=== PATIENT | female | born 1970 | race Caucasian/White ===

== ENCOUNTER 2023-01-08 07:14 | Day surgery (SDC) | payer OTHER, SELFPAY ==
[2023-01-08 07:32] LABS: Glucometer 138 mg/dL (74-106)
[2023-01-08 07:56] VITALS: BP 132/76; PULSE 98; RESP 20; TEMP 36.4; O2SAT 97
--- NOTE | 2023-01-08 08:15 | W.PM.PROCNOT ---
Date of procedure: 01/08/23 Pre-op diagnosis: sacroiliac joint pain, left Procedure: Left sacroiliac joint injection PREOP/POSTOP DIAGNOSIS: sacroiliac joint pain, left SOLUTION USED: Marcaine 0.25% plus Kenalog 40 mg, total of 5 mL. COMPLICATIONS: None. ANESTHESIA: Local. PROCEDURE: After informed consent was obtained, the patient brought to the OR and placed in the prone position. The skin overlying the area was prepped and draped in sterile fashion using alcohol, after which a 25 gauge needle was used to access the indicated middle cluneal nerve under fluoroscopic guidance. Omnipaque contrast dye was injected to show absence of vascular or spinal canal uptake. After encountering the same we instilled 4 mL of solution. Postoperatively, needles were removed. The patient tolerated the procedure well and was transferred to recovery area in stable condition, to be discharged home after meeting criteria. Follow up as per the treatment plan. Surgeon: Yamile Lopez
[2023-01-08] MEDS: BUPIVACAINE HCL 0.25% PF 25 MG/10 ML VIAL INJ (08:26)
[2023-01-08] MEDS: IOHEXOL 240 MG/ML - 10 ML VIAL INJ (08:27)
[2023-01-08] MEDS: LIDOCAINE HCL 2% PF 100 MG/5 ML VIAL INJ (08:27)
[2023-01-08] MEDS: TRIAMCINOLONE ACETONIDE 40 MG/ML VIAL INJ (08:28)
[2023-01-08 10:42] VITALS: BP 141/63; BP 156/74; PULSE 73; PULSE 84; RESP 18; O2SAT 93; O2SAT 95
== END 2023-01-08 08:30 | disposition home or self-care (01) ==
PROVIDERS: PCP Family Medicine; Visit Provider Anesthesiology
DX: M53.3 Sacrococcygeal disorders, not elsewhere classified (principal)
CPT/HCPCS: 27096; 36415; 82948; Q9966

== ENCOUNTER 2023-01-11 16:52 | Inpatient (IN) | payer OTHER, SELFPAY ==
[2023-01-11] VITALS (23 sets, daily range): BP systolic 138–194; BP diastolic 78–92; PULSE 79–104; RESP 15–26; TEMP 36.7–37.1; O2SAT 88–96; BMI 38.5; BMI 38.3
--- NOTE | 2023-01-11 17:08 | ED.RECABL1 ---
HPI - Recheck/Abnormal Lab/Rx General Chief Complaint: Recheck/Abnormal Lab/Rx Stated Complaint: ABNORMAL LABS Time Seen by Provider: 01/11/23 17:08 Source: patient Mode of arrival: walk-in Limitations: no limitations History of Present Illness HPI narrative: pt presents emergency department complaining of high white blood count. She states she had blood work done yesterday at [facility] and her white count was 19 so she was told by the nurse practitioner to come and be evaluated. Patient is a smoker and she has a history of chronic obstructive pulmonary disease. She had pneumonia for the last month. She states she is on her last pill of Levaquin and this is her 3rd antibiotic that she's had this month. She is also on tapering dose of prednisone, Down to 30 mg daily. nebulized albuterol treatments at home. She states in spite of having all of these antibiotics and steroids she is still feeling short of breath. They ordered a CT scanning of her chest as an outpatient but they have been. Patient states she still feeling short of breath. She denies any fevers states that she's had chills. She denies any lower extremity edema, or cramping. Patient denies any nausea, vomiting, diarrhea, constipation, or abdominal pain. She denies any flank pain, hematuria, dysuria. She denies any chest pain, palpitations. Patient is a smoker. Related Data Home Medications Medication Instructions Recorded Confirmed 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 QDAY 01/03/23 amlodipine 10 mg tablet 10 mg PO DAILY 01/03/23 01/08/23 aspirin 81 mg capsule 81 mg PO DAILY 01/03/23 01/08/23 cyclobenzaprine 10 mg tablet 10 mg PO QAM 01/03/23 01/08/23 diclofenac 50 mg tablet 100 ea QDAY 01/03/23 del.rel-capsai 0.025%-m-salic 25%-ment 6% liqd duloxetine 60 mg capsule,delayed 90 mg PO DAILY 01/03/23 01/08/23 release (Cymbalta) loratadine 10 mg tablet 10 mg PO DAILY 01/03/23 01/08/23 (Allerclear) magnesium glycinate 400 mg PO QDAY 01/03/23 01/08/23 olanzapine 5 mg tablet 5 mg PO .HS 01/03/23 01/08/23 omega 8-vgb-mcl-fish oil 1,000 mg 1 cap PO DAILY 01/03/23 01/08/23 (120 mg-180 mg) capsule (Fish Oil) omeprazole 20 mg capsule,delayed 20 mg PO DAILY 01/03/23 01/08/23 release potassium 20 mg chewable tablet mg PO QDAY 01/03/23 tramadol 50 mg tablet 50 mg PO DAILY PRN pain 01/03/23 01/08/23 Allergies Allergy/AdvReac Type Severity Reaction Status Date / Time hydromorphone [From Dilaudid] Allergy Mild Verified 01/11/23 17:12 Review of Systems ROS Status of ROS 10 or more systems reviewed and unremarkable except as noted in history and below [facility] Medical History (Updated 01/11/23 @ 21:04 by Jessy Butt MD) Surgical History (Updated 01/03/23 @ 17:01 by Alisson Rosario) Exam Narrative Exam Narrative: Nurses notes and vital signs reviewed and patient is not hypoxic.92% on ra General: Nontoxic,ill appearing and in no apparent distress. Skin: Warm, dry, no pallor noted. No Rash Head: Normocephalic, atraumatic. Neck: Supple, non-tender. Eye: Pupils are equal, round and EOMI. No scleral icterus. Ears, Nose, Mouth, and Throat: TM clear, no posterior oropharynx erythema or nasal mucosal hypertrophy, uvula is mid-line Oral mucosa is moist Cardiovascular: Regular Rate and Rhythm without murmur, gallop or rub. Respiratory: tachypneic and labored breathing no respiratory distress.Bilateral diffuse expiratory rhonchi, and wheezes to all lung perdomo. No intercostal retractions noted. Chest Wall: no tenderness Back: No midline thoracic or lumbar vertebral tenderness. No CVA tenderness Musculoskeletal: normal ROM, no calf or popliteal tenderness, no lower extremity edema/swelling GI: Abdomen is soft, non-distended. Normal bowel sounds. No masses appreciated. No tenderness to palpation. No rebound, guarding, or rigidity noted. Neurological: A&O x4. No cranial nerve dysfunction observed. No truncal ataxia. Moves all extremities. Sensation intact. Psychiatric: Cooperative and interactive. Normal mood and affect. Constitutional Vital Signs - 24 hr 01/11/23 17:00 01/11/23 17:10 01/11/23 17:02 Temperature 98.7 F Pulse Rate 95 H Pulse Rate [Monitor] 104 H Respiratory Rate 22 15 Blood Pressure 194/91 H Blood Pressure [Right Arm] 194/91 H Pulse Oximetry 93 L 94 L 92 L Oxygen Delivery Method Room Air Room Air 01/11/23 17:12 01/11/23 19:14 01/11/23 19:20 Temperature Pulse Rate 86 88 84 Pulse Rate [Monitor] Respiratory Rate 24 15 21 Blood Pressure 160/92 H Blood Pressure [Right Arm] Pulse Oximetry 91 L 91 L 92 L Oxygen Delivery Method 01/11/23 19:30 01/11/23 19:40 Temperature Pulse Rate 79 87 Pulse Rate [Monitor] Respiratory Rate 23 26 H Blood Pressure Blood Pressure [Right Arm] Pulse Oximetry 91 L 93 L Oxygen Delivery Method Course Vital Signs Vital signs: Vital Signs Temperature 98.7 F 01/11/23 17:00 Pulse Rate 104 H 01/11/23 17:00 Respiratory Rate 22 01/11/23 17:00 Blood Pressure 194/91 H 01/11/23 17:00 Pulse Oximetry 93 L 01/11/23 17:00 Oxygen Delivery Method Room Air 01/11/23 17:00 Temperature 98.7 F 01/11/23 17:00 Pulse Rate 87 01/11/23 19:40 Respiratory Rate 26 H 01/11/23 19:40 Blood Pressure 160/92 H 01/11/23 17:12 Pulse Oximetry 93 L 01/11/23 19:40 Oxygen Delivery Method Room Air 01/11/23 17:10 MDM - Recheck/Abnormal Lab/Rx MDM Narrative Medical decision making narrative: Patient has been treated for month for chronic obstructive pulmonary disease, pneumonia with 3 different antibiotics, nebulized treatments and steroids. She has not had any improvement. At this point we will not do a CTA of the chest. The CTA shows groundglass opacities and no pulmonary embolism. The patient was tested for Covid-19. Patient received 1 breathing treatment of 21 AB, 2 albuterol treatments, and magnesium, steroids, and fortaz IV. She still not feeling better. Lungs still have diffuse rhonchi throughout. The patient still tachypneic. The patient has failed outpatient treatment. This was discussed with the hospitalist who will admit the patient. I also discussed the patient smokes sensation Medical Records Attestation: I reviewed the patient's medical records. Lab Data Attestation: I reviewed the patient's lab results. Labs: Lab Results 01/11/23 Range/Units 17:10 WBC 20.0 H (4.0-11.0) 10^3/uL RBC 4.93 (4.20-5.40) 10^6/uL Hgb 15.4 (12.0-16.0) g/dL Hct 47.0 (36.0-48.0) % MCV 95.3 (81.0-99.0) fL MCH 31.2 (26.7-34.0) pg MCHC 32.8 (29.9-35.2) g/dL RDW 15.9 H (11.0-15.0) % Plt Count 398 (150-450) 10^3/uL MPV 8.9 L (9.5-13.5) fL Seg Neuts % (Manual) 80.0 Band Neutrophils % 4.0 (0-5) % Lymphocytes % (Manual) 11.0 L (20.5-60.0) % Monocytes % (Manual) 5.0 (1.7-12.0) % Eosinophils % (Manual) 0.0 L (0.9-7.0) % Basophils % (Manual) 0.0 L (0.2-2.0) % Neutrophils # (Manual) 16.00 H (1.4-6.5) 10^3/uL Band Neutrophils # 0.8 H (0.0-0.3) 10^3/uL Lymphocytes # (Manual) 2.20 (1.20-3.80) 10^3/uL Monocytes # (Manual) 1.00 H (0.30-0.80) 10^3/uL Eosinophils # (Manual) 0.00 (0.00-0.70) 10^3/uL Basophils # (Manual) 0.00 (0.00-0.10) 10^3/uL Anisocytosis 1+ Sodium 137 (136-145) mmol/L Potassium 4.2 (3.5-5.1) mmol/L Chloride 102 (98-107) mmol/L Carbon Dioxide 24.3 (21.0-32.0) mmol/L Anion Gap 14.9 BUN 15.0 (7.0-18.0) mg/dL Creatinine 1.29 H (0.55-1.02) mg/dL Est GFR ( Amer) 52 L (>=60) Est GFR (Non-Af Amer) 43 L (>=60) BUN/Creatinine Ratio 11.6 Glucose 189 H (74-106) mg/dL Calcium 9.1 (8.5-10.1) mg/dL Total Bilirubin 1.0 (0.2-1.0) mg/dL AST 11 L (15-37) U/L ALT 27 (14-59) U/L Alkaline Phosphatase 83 (46-116) U/L Troponin I High Sens 5.7 (4.0-51.3) pg/mL Total Protein 7.3 (6.4-8.2) g/dL Albumin 3.6 (3.4-5.0) g/dL Globulin 3.7 g/dL Albumin/Globulin Ratio 1.0 ECG Data Attestation: I personally reviewed and interpreted this ECG as follows: Discharge Plan Discharge Chief Complaint: Recheck/Abnormal Lab/Rx Clinical Impression: Failure of outpatient treatment, Continuous tobacco abuse, Acute exacerbation of chronic obstructive pulmonary disease Patient Disposition: Admitted as Observation Time of Disposition Decision: 20:37 Condition: Good
--- NOTE | 2023-01-11 17:19 | ECG_ITS ---
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
[2023-01-11] MEDS: IPRATROPIUM/ALBUTEROL SULFATE 3 ML AMPUL.NEB IH (17:48)
[2023-01-11] MEDS: 0.9 % SODIUM CHLORIDE 1,000 ML 999 ML IV (17:51)
[2023-01-11] MEDS: METHYLPREDNISOLONE SOD SUCC PF 125 MG/2 ML VIAL IVP (17:51)
[2023-01-11 18:02] LABS: Hemoglobin 15.4 g/dL (12.0-16.0); Mean Corpuscular HGB Conc 32.8 g/dL (29.9-35.2); Mean Corpuscular Hemoglobin 31.2 pg (26.7-34.0); Mean Corpuscular Volume 95.3 fL (81.0-99.0); Mean Platelet Volume 8.9 fL (9.5-13.5); Platelet Count 398 10^3/uL (150-450); Red Blood Count 4.93 10^6/uL (4.20-5.40); Red Cell Distribution Width 15.9 % (11.0-15.0)
[2023-01-11 18:10] LABS: Anisocytosis 1+; Band Neutrophils Absolute 0.8 10^3/uL (0.0-0.3)
[2023-01-11 18:22] LABS: Alanine Aminotransferase 27 U/L (14-59); Albumin Level 3.6 g/dL (3.4-5.0); Alkaline Phosphatase 83 U/L (46-116); Anion Gap 14.9; Aspartate Amino Transferase 11 U/L (15-37); BUN Creatinine Ratio 11.6; Calcium 9.1 mg/dL (8.5-10.1); Carbon Dioxide 24.3 mmol/L (21.0-32.0); Chloride 102 mmol/L (98-107); Estimated GFR (African America 52 (>=60); Estimated GFR (Non-African Ame 43 (>=60); Globulin 3.7 g/dL; Glucose 189 mg/dL (74-106); Potassium 4.2 mmol/L (3.5-5.1); Sodium 137 mmol/L (136-145); Total Protein 7.3 g/dL (6.4-8.2); Troponin I High Sensitivity 5.7 pg/mL (4.0-51.3)
--- NOTE | 2023-01-11 18:31 | CT_ITS ---
[address] [address] Patient Name: DHARA BETTENCOURT MRN: [id number] date: 1970 Sex: F Assigned Patient Location: ER Current Patient Location: ER Accession/Order Number: [id number] Exam Date: 01/11/2023 18:40 Report Date: 01/11/2023 20:06 At the request of: LISS DHALIWAL Procedure: CT angio chest EXAMINATION: CT angio chest HISTORY: dyspnea COMPARISON: Plain x-ray 12/27/2022 TECHNIQUE: Multi-planar CT images were created with IV contrast. Axial, Coronal, and Sagittal images. Dose reduction techniques were achieved by using automated exposure control and/or adjustment of mA and/or kV according to patient size and/or use of iterative reconstruction technique. FINDINGS: LUNGS: Mild scattered linear and groundglass opacities with a medial right upper lobe and bibasilar distribution. PLEURA: No mass, effusion, or pneumothorax. VASCULATURE: Normal opacification of the central pulmonary arterial tree with no filling defects FUNMI: No mass or adenopathy. MEDIASTINUM: No mass or adenopathy. CARDIAC: No enlargement. Small amount of pericardial fluid felt to be within normal limits AORTA: No aneurysm or dissection. CHEST WALL: No mass or axillary adenopathy. BONES: No bone lesion or fracture. LIMITED ABDOMEN: Diffuse hypoattenuation of the liver, consider hepatic steatosis echogenicity partially visualized along the medial posterior left kidney measuring 24 Hounsfield units, indeterminate OTHER: Negative. IMPRESSION: No central pulmonary thromboembolic disease Electronically authenticated by: MELYSSA PITTS Date: 01/11/2023 20:06
[2023-01-11] MEDS: MAGNESIUM SULFATE IN WATER 50 ML IV (18:32)
[2023-01-11] MEDS: CEFTAZIDIME 1,000 MG in 0.9 % SODIUM CHLORIDE 50 ML 100 MG IV (18:33)
[2023-01-11] MEDS: ALBUTEROL SULFATE 2.5 MG/3 ML VIAL NEB IH (21:09)
[2023-01-11 21:12] LABS: SARS-CoV-2 Ag NEGATIVE (NEGATIVE)
[2023-01-11 22:52] LABS: Glucometer 174 mg/dL (74-106)
[2023-01-11] MEDS: METHYLPREDNISOLONE SOD SUCC PF 40 MG/ML VIAL IVP (23:23)
[2023-01-11] MEDS: NICOTINE 21 MG PATCH.TD24 TD (23:25)
[2023-01-11] MEDS: 0.9 % SODIUM CHLORIDE 1,000 ML 75 ML IV (23:26)
[2023-01-12] VITALS (11 sets, daily range): BP systolic 134–138; BP diastolic 68–84; PULSE 78–103; RESP 2–20; TEMP 36.6–37; O2SAT 88–96; BMI 38.3
--- NOTE | 2023-01-12 02:03 | P.PN_ITS ---
Progress Note: Subjective Subjective Interval history: Pt is 52F with h/o COPD not on any home O2, dm, tobacco abuse, anad left renal cyst currnetly undergoing w/u presents with c/o ongoign dyspnea and wheezing. Pt reports initially being dx with PNA in November. She reports sob, cough assoc with productive sputum tht hs been anywhre from yellow to green and brown which has bee nongoing sicen then. Reports goign to [facility] last month and RX Augmentin. she followed up with her PCP for the lingering cough when she was about senior living thru the augmentin tx and was switched to Zpack along with a prologned steroid taper. She was starting to feel bettr but sx exacerbated. She was able to complete Zpack and remains on prednisone taper currently. She initialyl felt better but sx worsened with cough, sob, and wheezing therefore PCP placed her on levaquin 10day courseand she has complted 9 days thus far. prednisone taper cont with 3 more days until complete yet not feeling any better so came to ED as referreed by her PCP d/t labs done couple days ago showing wbc 19k. PCP felt that this elev wbc was not just d/t steroids,..She did have a low grade fever 99.4 at last PCP appt but denies at present. In ED,Vitald 160/92 and 88%ra, improved with 2 L. No home o2 prev. COVID negative.wbc 20k, cr 1.29,gluc 189. ekg nsr. cta chest neg for pe, noted GGO in rul and bll. treated with nebs, Fortaz, mg, soluemdrol 125mg, and ivf. Exam Constitutional Vital Signs - 24 hr 01/11/23 17:00 01/11/23 17:10 01/11/23 17:02 Temperature 98.7 F Pulse Rate 95 H Pulse Rate [Monitor] 104 H Respiratory Rate 22 15 Blood Pressure 194/91 H Blood Pressure [Right Arm] 194/91 H Pulse Oximetry 93 L 94 L 92 L Oxygen Delivery Method Room Air Room Air 01/11/23 17:12 01/11/23 19:14 01/11/23 19:20 Temperature Pulse Rate 86 88 84 Pulse Rate [Monitor] Respiratory Rate 24 15 21 Blood Pressure 160/92 H Blood Pressure [Right Arm] Pulse Oximetry 91 L 91 L 92 L Oxygen Delivery Method 01/11/23 19:30 01/11/23 19:40 01/11/23 21:09 Temperature Pulse Rate 79 87 102 H Pulse Rate [Monitor] Respiratory Rate 23 26 H 22 Blood Pressure Blood Pressure [Right Arm] Pulse Oximetry 91 L 93 L 93 L Oxygen Delivery Method 01/11/23 19:50 01/11/23 20:00 01/11/23 20:10 Temperature Pulse Rate 79 84 84 Pulse Rate [Monitor] Respiratory Rate 21 20 19 Blood Pressure Blood Pressure [Right Arm] Pulse Oximetry 93 L 91 L 90 L Oxygen Delivery Method 01/11/23 20:20 01/11/23 20:30 01/11/23 20:40 Temperature Pulse Rate 81 88 85 Pulse Rate [Monitor] Respiratory Rate 19 22 15 Blood Pressure Blood Pressure [Right Arm] Pulse Oximetry 92 L 91 L 91 L Oxygen Delivery Method 01/11/23 21:06 01/11/23 21:10 01/11/23 21:15 Temperature Pulse Rate 86 81 86 Pulse Rate [Monitor] Respiratory Rate 17 15 20 Blood Pressure Blood Pressure [Right Arm] Pulse Oximetry 96 Oxygen Delivery Method 01/11/23 21:50 01/11/23 22:16 01/11/23 22:16 Temperature 98.2 F Pulse Rate 88 Pulse Rate [Monitor] 89 88 Respiratory Rate 18 20 Blood Pressure Blood Pressure [Right Arm] 138/80 H 138/78 H Pulse Oximetry 93 L 95 95 Oxygen Delivery Method Room Air Room Air Room Air 01/11/23 22:53 01/12/23 00:06 01/11/23 23:38 Temperature 98.0 F Pulse Rate 88 Pulse Rate [Monitor] Respiratory Rate 22 Blood Pressure Blood Pressure [Right Arm] Pulse Oximetry 91 L 88 L 88 L Oxygen Delivery Method Room Air Room Air Room Air Common normals: no apparent distress, oriented x3, no limitations and alert HENMT Common normals: normocephalic Head and scalp: atraumatic Neck & C-Spine Common normals: full ROM and supple Respiratory Effort & inspection: able to speak in complete sentences Other: diffuse exp wheezes b/l, bibasilar rhonchi, decr b/l air entry Cardio Rate: regular rate Rhythm: regular rhythm Heart sounds: S1 normal and S2 normal GI Common normals: Normal to inspection, nondistended, normoactive bowel sounds present, soft to palpation and non-tender Extremity Common normals: normal to inspection and full ROM Psych Common normals: mental status grossly normal Appearance: grossly normal Attitude: calm Activity/motor behavior: appropriate eye contact Speech: normal speech Progress Note: Objective Labs Labs: Short CBC 01/11/23 Range/Units 17:10 WBC 20.0 H (4.0-11.0) 10^3/uL Hgb 15.4 (12.0-16.0) g/dL Hct 47.0 (36.0-48.0) % Plt Count 398 (150-450) 10^3/uL BMP 01/11/23 17:10 Sodium 137 Potassium 4.2 Chloride 102 Carbon Dioxide 24.3 BUN 15.0 Creatinine 1.29 H Glucose 189 H Calcium 9.1 Liver Function 01/11/23 Range/Units 17:10 Total Bilirubin 1.0 (0.2-1.0) mg/dL AST 11 L (15-37) U/L ALT 27 (14-59) U/L Alkaline Phosphatase 83 (46-116) U/L Albumin 3.6 (3.4-5.0) g/dL Progress Note: A&P Assessment and Plan (1) Acute exacerbation of chronic obstructive pulmonary disease: (2) Continuous tobacco abuse: (3) Failure of outpatient treatment: (4) Anxiety: (5) Asthma: (6) Depression: (7) Hypertension: Plan AE-COPD PNA,CAP. failed outpt tx with 3 rounds po abx Acute on Chronci hypoxic resp failure Persistent Leukocytosis, noted in settign of prolonged steroid use but need to r/o alternative etiolgies Mild KINDRA DM HTN Tobacco Abuse L Kidney cyst, curently undergoing o/pt workup with upcoming imagin schd per pt Plan: -solumedrol iv duonebs schd and prn start Zosyn. failed o/pt abx with augmentin, zpack, and levaquin chk Sputum cx, urine antigens wean O2 as peter. denies home O2 use. may need on dc repeat cbc in am. monitor for fever gentle ivf x 1 L monitor Cr ssi, hold home metformin,rebelsys chk a1c in am nicotine patch dvt p/x sq heparin full code Telemedicine Attestation Telemedicine Attestation I conducted this encounter from [] via secure live, [id number] video conference with the patient, CHARGE TEST-CHARGES located at [facility] with []. Prior to the interview, the risks and benefits of telemedicine were discussed with the patient and verbal consent was obtained.
[2023-01-12] MEDS: PIPERACILLIN SODIUM/TAZOBACTAM 3.375 GM in 0.9 % SODIUM CHLORIDE 50 ML IV ×3 (04:34→18:19)
[2023-01-12 05:42] LABS: Hematocrit 39.9 % (36.0-48.0); Hemoglobin 13.4 g/dL (12.0-16.0); Mean Corpuscular HGB Conc 33.6 g/dL (29.9-35.2); Mean Corpuscular Hemoglobin 31.5 pg (26.7-34.0); Mean Corpuscular Volume 93.7 fL (81.0-99.0); Mean Platelet Volume 8.6 fL (9.5-13.5); Platelet Count 321 10^3/uL (150-450); Red Blood Count 4.26 10^6/uL (4.20-5.40)
[2023-01-12 05:55] LABS: Estimated Average Glucose 128 mg/dL; Glycohemoglobin A1C 6.1 % (4.5-6.2)
[2023-01-12 05:58] LABS: Anion Gap 14.8; BUN Creatinine Ratio 15.7; Calcium 9.1 mg/dL (8.5-10.1); Carbon Dioxide 24.4 mmol/L (21.0-32.0); Chloride 102 mmol/L (98-107); Estimated GFR (African America 56 (>=60); Estimated GFR (Non-African Ame 47 (>=60); Glucose 230 mg/dL (74-106); Potassium 4.2 mmol/L (3.5-5.1); Sodium 137 mmol/L (136-145)
[2023-01-12] MEDS: IPRATROPIUM/ALBUTEROL SULFATE 3 ML AMPUL.NEB IH ×5 (06:13→22:48)
[2023-01-12] MEDS: HEPARIN SODIUM (PORCINE) 5,000 UNIT/ML VIAL 5000 UNIT SUBQ ×3 (06:31→21:41)
[2023-01-12] MEDS: METHYLPREDNISOLONE SOD SUCC PF 40 MG/ML VIAL IVP ×3 (06:53→18:20)
--- NOTE | 2023-01-12 07:37 | US_ITS ---
The [address] [address] Patient Name: DHARA BETTENCOURT MRN: [id number] date: 1970 Sex: F Assigned Patient Location: MS Current Patient Location: MS Accession/Order Number: [id number] Exam Date: 01/12/2023 10:35 Report Date: 01/12/2023 12:55 At the request of: SHAIKH MIGUELANGEL Procedure: US renal bladder US renal bladder EXAM DATE: 01/12/2023 8:35 AM MDT COMPARISON: MRI lumbar spine 12/05/2022. INDICATION: Renal cysts. TECHNIQUE: Real-time ultrasound scanning of the kidneys and bladder was performed by the supervisor offset plate preparation. [place] static images are submitted for review. FINDINGS: Right Kidney: The right kidney measures 12.7 x 5.2 x 4.5 cm and has a volume of 154 mL. Normal echogenicity. No hydronephrosis. No shadowing calculi. Multiple renal cysts are noted. Renal cysts measure 0.8 x 1 x 1.1 cm and 3.4 x 3.6 x 3.8 cm respectively. No obvious solid renal mass. Renal cortex measures 1.3 cm. Left Kidney: The left kidney measures 11.5 x 5.2 x 5.4 cm and has a volume of 170 mL. Normal echogenicity. No hydronephrosis. No shadowing calculi. Multiple renal cysts are identified. Superior pole renal cysts measure 3.3 x 3.5 x 3.2 cm and 2.4 x 2.3 x 1.9 cm. Although no obvious solid renal mass is identified sonographically, no definitive correlate for previously MRI visualized 1.6 cm posterior complex cyst versus mass is identified. Renal cortex measures 1.4 cm. Bladder: Bladder volume measures 574 mL. No post void residual is identified. No focal or diffuse bladder wall thickening noted. Bilateral ureteral jets are visualized. Visualized hepatic parenchyma is echogenic to adjacent renal cortex. IMPRESSION: 1. Bilateral renal cysts are noted. However, the 1.6 cm complex cyst versus mass visualized on comparison MRI is not confidently identified sonographically. A dedicated contrast-enhanced renal CT or MRI is recommended to definitively characterize this lesion. 2. No hydronephrosis. Bilateral ureteral jets are visualized. 3. Fatty infiltration of the liver. Electronically authenticated by: MEREDITH HYDE Date: 01/12/2023 12:55
[2023-01-12 07:44] LABS: Glucometer 217 mg/dL (74-106)
[2023-01-12] MEDS: CETIRIZINE HCL 10 MG TABLET PO (08:41)
[2023-01-12] MEDS: OLANZapine 5 MG TABLET PO ×2 (08:41→21:41)
[2023-01-12] MEDS: AMLODIPINE BESYLATE 5 MG TABLET 10 MG PO (08:42)
[2023-01-12] MEDS: ASPIRIN 81 MG TABLET.DR PO (08:42)
[2023-01-12] MEDS: OMEPRAZOLE 20 MG CAPSULE.DR PO (08:42)
[2023-01-12] MEDS: DULOXETINE HCL 30 MG CAPSULE.DR 90 MG PO (10:25)
[2023-01-12] MEDS: POTASSIUM CHLORIDE 10 MEQ ER TABLET PO (10:25)
[2023-01-12] MEDS: INSULIN ASPART 300 UNIT/3 ML PEN SUBQ ×3 (11:35→21:44)
[2023-01-12 11:36] LABS: Glucometer 232 mg/dL (74-106)
--- NOTE | 2023-01-12 11:36 | RESP.RT ---
placed pt on Room air
--- NOTE | 2023-01-12 12:02 | XR_ITS ---
The [address] [address] Patient Name: DHARA BETTENCOURT MRN: [id number] date: 1970 Sex: F Assigned Patient Location: MS Current Patient Location: MS Accession/Order Number: [id number] Exam Date: 01/12/2023 12:15 Report Date: 01/12/2023 13:41 At the request of: SHAIKH MIGUELANGEL Procedure: XR chest 2V EXAM: XR chest 2V HISTORY: SOB COMPARISON: 12/27/2022 TECHNIQUE: Upright PA and lateral chest x-ray FINDINGS: The heart is not enlarged and the vasculature is not distended. There is been interval clearing at the lung bases. No acute infiltrate, effusion or pneumothorax is identified. The osseous structures are grossly intact. IMPRESSION: No acute infiltrate or evidence of cardiac decompensation. Interval clearing of the lung bases. Electronically authenticated by: VENKATESH CALVILLO Date: 01/12/2023 13:41
--- NOTE | 2023-01-12 12:29 | P.HP_ITS ---
H&P: HPI History of Present Illness Chief complaint: Shortness of breath Narrative: 52 y o female presents with one month hx of feeling short of breath, with associated wheezing and productive cough. She has had fevers too initially but not for past couple of weeks now. She was treated as outpatient by her PCP for COPD exacerbation and later on, when did not improve for PNA after she had an XR that showed possible PNA. She has been using oral steroids more or less for past one month for her resp symptoms. She has used thre different abx for her resp symptoms - Azithromycin, Augmentin and most recently Levaquin and today was going to be her last dose. She has not noticed any sig improvement in her resp symptoms. Patient was sent to ED for elevated white count by her PCP. On presentation, she was hpyoxic with pulse Ox down to 88% at rest with SOB on exertion. She never had formal PFTs for COPD but has been told that she has COPD. She is not on any maintenance inhalers for COPD and uses albuterol as needed. Continues to smoke 1 PPD but since she got sick - she has cut down her smoking somewhat. She reports chronic CROOK and as a result of that has modified her lifestyle but has not been worked up for underlying CAD/CHF and once again never had PFTs. She is feeling better today but still hypoxic and experiencing exertional SOB. Review of Systems ROS Status of ROS 10 or more systems reviewed and unremarkable except as noted in history and below [facility] Medical History (Updated 01/12/23 @ 12:47 by Shaikh Alexandra MD) Surgical History (Updated 01/03/23 @ 17:01 by Alisson Rosario) Social History Gender Identity: female Meds Home Medications and Allergies Home Medications Medication Instructions Recorded Confirmed Type 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 1 tab PO QDAY 01/03/23 01/12/23 History amlodipine 10 mg tablet 10 mg PO DAILY 01/03/23 01/12/23 History aspirin 81 mg capsule 81 mg PO DAILY 01/03/23 01/12/23 History cyclobenzaprine 10 mg tablet 5 mg PO QPM 01/03/23 01/12/23 History diclofenac 50 mg tablet 100 ea topical QDAY 01/03/23 01/12/23 History del.rel-capsai 0.025%-m-salic 25%-ment 6% liqd duloxetine 60 mg capsule,delayed 90 mg PO DAILY 01/03/23 01/12/23 History release (Cymbalta) loratadine 10 mg tablet 10 mg PO DAILY 01/03/23 01/12/23 History (Allerclear) magnesium glycinate 400 mg PO QDAY 01/03/23 01/12/23 History olanzapine 5 mg tablet 7.5 mg PO QPM 01/03/23 01/12/23 History omega 2-fbf-pqh-fish oil 1,000 mg 1 cap PO DAILY 01/03/23 01/12/23 History (120 mg-180 mg) capsule (Fish Oil) omeprazole 20 mg capsule,delayed 20 mg PO DAILY 01/03/23 01/12/23 History release tramadol 50 mg tablet 50 mg PO DAILY PRN pain 01/03/23 01/12/23 History potassium chloride 10 mEq 10 meq PO DAILY 01/12/23 01/12/23 History tablet,extended release (K-Tab) Allergies Allergy/AdvReac Type Severity Reaction Status Date / Time hydromorphone [From Dilaudid] Allergy Mild Verified 01/11/23 17:12 Exam Constitutional Vital Signs - 24 hr 01/11/23 17:00 01/11/23 17:10 01/11/23 17:02 Temperature 98.7 F Pulse Rate 95 H Pulse Rate [Monitor] 104 H Respiratory Rate 22 15 Blood Pressure 194/91 H Blood Pressure [Right Arm] 194/91 H Pulse Oximetry 93 L 94 L 92 L Oxygen Delivery Method Room Air Room Air Oxygen Delivery Flow Rate Fraction of Inspired Oxygen 01/11/23 17:12 01/11/23 19:14 01/11/23 19:20 Temperature Pulse Rate 86 88 84 Pulse Rate [Monitor] Respiratory Rate 24 15 21 Blood Pressure 160/92 H Blood Pressure [Right Arm] Pulse Oximetry 91 L 91 L 92 L Oxygen Delivery Method Oxygen Delivery Flow Rate Fraction of Inspired Oxygen 01/11/23 19:30 01/11/23 19:40 01/11/23 21:09 Temperature Pulse Rate 79 87 102 H Pulse Rate [Monitor] Respiratory Rate 23 26 H 22 Blood Pressure Blood Pressure [Right Arm] Pulse Oximetry 91 L 93 L 93 L Oxygen Delivery Method Oxygen Delivery Flow Rate Fraction of Inspired Oxygen 01/11/23 19:50 01/11/23 20:00 01/11/23 20:10 Temperature Pulse Rate 79 84 84 Pulse Rate [Monitor] Respiratory Rate 21 20 19 Blood Pressure Blood Pressure [Right Arm] Pulse Oximetry 93 L 91 L 90 L Oxygen Delivery Method Oxygen Delivery Flow Rate Fraction of Inspired Oxygen 01/11/23 20:20 01/11/23 20:30 01/11/23 20:40 Temperature Pulse Rate 81 88 85 Pulse Rate [Monitor] Respiratory Rate 19 22 15 Blood Pressure Blood Pressure [Right Arm] Pulse Oximetry 92 L 91 L 91 L Oxygen Delivery Method Oxygen Delivery Flow Rate Fraction of Inspired Oxygen 01/11/23 21:06 01/11/23 21:10 01/11/23 21:15 Temperature Pulse Rate 86 81 86 Pulse Rate [Monitor] Respiratory Rate 17 15 20 Blood Pressure Blood Pressure [Right Arm] Pulse Oximetry 96 Oxygen Delivery Method Oxygen Delivery Flow Rate Fraction of Inspired Oxygen 01/11/23 21:50 01/11/23 22:16 01/11/23 22:16 Temperature 98.2 F Pulse Rate 88 Pulse Rate [Monitor] 89 88 Respiratory Rate 18 20 Blood Pressure Blood Pressure [Right Arm] 138/80 H 138/78 H Pulse Oximetry 93 L 95 95 Oxygen Delivery Method Room Air Room Air Room Air Oxygen Delivery Flow Rate Fraction of Inspired Oxygen 01/11/23 22:53 01/12/23 00:06 01/11/23 23:38 Temperature 98.0 F Pulse Rate 88 Pulse Rate [Monitor] Respiratory Rate 22 Blood Pressure Blood Pressure [Right Arm] Pulse Oximetry 91 L 88 L 88 L Oxygen Delivery Method Room Air Room Air Room Air Oxygen Delivery Flow Rate Fraction of Inspired Oxygen 01/12/23 04:26 01/12/23 05:03 01/12/23 06:20 Temperature 97.8 F Pulse Rate 89 94 H Pulse Rate [Monitor] Respiratory Rate 16 20 Blood Pressure Blood Pressure [Right Arm] 136/80 H Pulse Oximetry 94 L 93 L Oxygen Delivery Method Nasal Cannula Nasal Cannula Oxygen Delivery Flow Rate 2 2 Fraction of Inspired Oxygen 01/12/23 08:00 01/12/23 11:34 Temperature Pulse Rate Pulse Rate [Monitor] Respiratory Rate 2 L Blood Pressure Blood Pressure [Right Arm] Pulse Oximetry Oxygen Delivery Method Room Air Oxygen Delivery Flow Rate Fraction of Inspired Oxygen 94 Documenting provider has reviewed patient's vital signs: yes Common normals: no apparent distress and oriented x3 General appearance: cooperative and comfortable HENIL Common normals: normocephalic and head/scalp atraumatic Respiratory Common normals: normal respiratory effort and no use of accessory muscles Effort & inspection: able to speak in complete sentences Auscultation: wheezes expiratory wheezes and scattered wheezes GI Common normals: Normal to inspection, nondistended, normoactive bowel sounds present, soft to palpation, non-tender and no hepatosplenomegaly Extremity Common normals: normal to inspection and full ROM Neuro Common normals: oriented x3, moves all extremities, no focal motor deficits and no sensory deficits noted Psych Common normals: mental status grossly normal, denies homicidal ideation and denies suicidal ideation Results Labs Labs: Short CBC 01/11/23 01/12/23 Range/Units 17:10 05:26 WBC 20.0 H 21.0 H (4.0-11.0) 10^3/uL Hgb 15.4 13.4 (12.0-16.0) g/dL Hct 47.0 39.9 (36.0-48.0) % Plt Count 398 321 (150-450) 10^3/uL BMP 01/11/23 01/12/23 17:10 05:26 Sodium 137 137 Potassium 4.2 4.2 Chloride 102 102 Carbon Dioxide 24.3 24.4 BUN 15.0 19.0 H Creatinine 1.29 H 1.21 H Glucose 189 H 230 H Calcium 9.1 9.1 Liver Function 01/11/23 Range/Units 17:10 Total Bilirubin 1.0 (0.2-1.0) mg/dL AST 11 L (15-37) U/L ALT 27 (14-59) U/L Alkaline Phosphatase 83 (46-116) U/L Albumin 3.6 (3.4-5.0) g/dL Assessment and Plan Assessment and Plan (1) Sepsis: Assessment and Plan: SIRS criteria (HR > 90, WBC> 13K) due to PNA and concurrent resp failure with hypoxia. Stable hemodynamics now. C/w IVF. Qualifiers: Sepsis type: sepsis due to unspecified organism Sepsis acute organ dysfunction status: with acute organ dysfunction Severe sepsis acute organ dysfunction type: acute respiratory failure (2) Respiratory failure with hypoxia: Assessment and Plan: Due to COPD exacerbation and PNA. On 2 L O2 via NC. No resp distress. Wean off O2 as tolerated (3) Acute exacerbation of chronic obstructive pulmonary disease: Assessment and Plan: Scattered wheezing. C/w duonebs q4 along with IV solumedrol. Wean off O2 as tolerated Will need outpatient PFTs once clinically stable Discussed smoking cessation (4) Pneumonia: Assessment and Plan: Failed outpatient therapy - received Augmentin, Levaquin and Azithromycin. Will treat with broad spectrum abx due to sepsis, resp failure and recent use of multiple abx and no improvement in her symptoms On IV vancomycin and Zosyn F/u cultures. Qualifiers: Pneumonia type: due to unspecified organism Laterality: bilateral Lung location: lower lobe of lung Qualified Code(s): J18.9 - Pneumonia, unspecified organism (5) KINDRA (acute kidney injury): Assessment and Plan: Mild KINDRA likely pre renal. On IVF. Monitor (6) Hypertension: Assessment and Plan: Stable now. Resume Amlodipine Qualifiers: Hypertension type: primary hypertension Qualified Code(s): I10 - Essential (primary) hypertension (7) Anxiety: Assessment and Plan: Stable. On cymbalta and Olanzapine (8) Depression: Assessment and Plan: Stable. On cymbalta and Olanzapine (9) Failure of outpatient treatment: Assessment and Plan: Failed outpatient therapy for PNA and COPD exacerbation. Inpatient treatment for spesis, resp failure with hypoxia and COPD exacerbation. (10) Continuous tobacco abuse: Assessment and Plan: Discussed smoking cessation. Nicotine patches while inpatient.
--- NOTE | 2023-01-12 12:53 | CM.NOTE ---
Rounds made with Dr. Morris. Dr. Morris explained COPD and lab results to Nesha. Would like her to obtain a sputum specimen. Nesha voices understanding.
[2023-01-12] MEDS: LACTATED RINGER'S SOLUTION 1,000 ML 125 ML IV ×2 (14:56→23:09)
[2023-01-12] MEDS: NICOTINE 21 MG PATCH.TD24 TD (14:56)
[2023-01-12] MEDS: VANCOMYCIN HCL 1,000 MG in 0.9 % SODIUM CHLORIDE 250 ML 250 MG IV (16:43)
[2023-01-12 17:17] LABS: Glucometer 194 mg/dL (74-106)
[2023-01-12 21:55] LABS: Glucometer 313 mg/dL (74-106)
[2023-01-13] VITALS (12 sets, daily range): BP systolic 131–145; BP diastolic 54–78; PULSE 89–106; RESP 18–22; TEMP 36.4–37.3; O2SAT 90–97
[2023-01-13] MEDS: PIPERACILLIN SODIUM/TAZOBACTAM 3.375 GM in 0.9 % SODIUM CHLORIDE 50 ML IV ×3 (01:03→17:28)
[2023-01-13] MEDS: METHYLPREDNISOLONE SOD SUCC PF 40 MG/ML VIAL IVP ×3 (01:07→17:29)
[2023-01-13] MEDS: VANCOMYCIN HCL 1,000 MG in 0.9 % SODIUM CHLORIDE 250 ML 175 MG IV (03:07)
[2023-01-13] MEDS: IPRATROPIUM/ALBUTEROL SULFATE 3 ML AMPUL.NEB IH ×6 (03:42→22:44)
[2023-01-13 04:57] LABS: Hematocrit 39.4 % (36.0-48.0); Hemoglobin 12.9 g/dL (12.0-16.0); Mean Corpuscular HGB Conc 32.7 g/dL (29.9-35.2); Mean Corpuscular Hemoglobin 31.2 pg (26.7-34.0); Mean Corpuscular Volume 95.4 fL (81.0-99.0); Mean Platelet Volume 8.9 fL (9.5-13.5); Platelet Count 339 10^3/uL (150-450); Red Blood Count 4.13 10^6/uL (4.20-5.40); Red Cell Distribution Width 16.5 % (11.0-15.0); White Blood Count 23.6 10^3/uL (4.0-11.0)
[2023-01-13 05:20] LABS: Alanine Aminotransferase 26 U/L (14-59); Albumin Level 3.1 g/dL (3.4-5.0); Alkaline Phosphatase 64 U/L (46-116); Anion Gap 14.9; Aspartate Amino Transferase 9 U/L (15-37); BUN Creatinine Ratio 17.1; Bilirubin Total 0.6 mg/dL (0.2-1.0); Calcium 9.5 mg/dL (8.5-10.1); Carbon Dioxide 24.3 mmol/L (21.0-32.0); Chloride 103 mmol/L (98-107); Estimated GFR (African America >60 (>=60); Estimated GFR (Non-African Ame 51 (>=60); Globulin 3.2 g/dL; Glucose 201 mg/dL (74-106); Potassium 4.2 mmol/L (3.5-5.1); Sodium 138 mmol/L (136-145); Total Protein 6.3 g/dL (6.4-8.2)
[2023-01-13 05:30] LABS: Band Neutrophils Absolute 0.5 10^3/uL (0.0-0.3); Lymphocytes Absolute Manual 1.65 10^3/uL (1.20-3.80); Monocytes Absolute Manual 0.47 10^3/uL (0.30-0.80); Segmented Neut Absolute Manual 20.76 10^3/uL (1.4-6.5)
[2023-01-13 05:33] LABS: Hypersegmented Neutrophils 2+
[2023-01-13] MEDS: HEPARIN SODIUM (PORCINE) 5,000 UNIT/ML VIAL 5000 UNIT SUBQ ×3 (05:39→21:42)
[2023-01-13] MEDS: OMEPRAZOLE 20 MG CAPSULE.DR PO (05:39)
[2023-01-13] MEDS: INSULIN ASPART 300 UNIT/3 ML PEN SUBQ ×4 (08:10→21:42)
[2023-01-13] MEDS: CETIRIZINE HCL 10 MG TABLET PO (08:11)
[2023-01-13] MEDS: AMLODIPINE BESYLATE 5 MG TABLET 10 MG PO (08:11)
[2023-01-13] MEDS: POTASSIUM CHLORIDE 10 MEQ ER TABLET PO (08:11)
[2023-01-13] MEDS: DULOXETINE HCL 30 MG CAPSULE.DR 90 MG PO (08:11)
[2023-01-13] MEDS: ASPIRIN 81 MG TABLET.DR PO (08:11)
[2023-01-13] MEDS: LACTATED RINGER'S SOLUTION 1,000 ML 125 ML IV (08:12)
[2023-01-13 11:49] LABS: Glucometer 197 mg/dL (74-106)
--- NOTE | 2023-01-13 12:24 | P.PN_ITS ---
Progress Note: Subjective Subjective Interval history: Pt is 52F with h/o COPD not on any home O2, dm, tobacco abuse, and left renal cyst. Had been having wheezing, shortness of breath, cough associated with productive sputum. She was been on Augmentin, Zpack steroid taper and later levaquin. Despite all this she never got better. Was admitted for copd exacerbation and pneumonia. Initial elevation of wbc, low grade fever 99.4, was 88%ra, improved with 2 L. No home o2 previously. Not seem pulmonary or on a [place] controller inhalers, current smoker. COVID negative. This morning she reports feeling improved. Exam Narrative Exam Narrative: General: Patient is alert, and oriented to person, place and time with normal affect, proper hygiene Skin: no visible rashes, or ulcers Head: atraumatic, acephalic Eyes: PERRLA, no nystagmus present, conjunctiva clear, no scleral icterus Ears: normal gross auditory acuity Heart: Normal rate and rhythm, no murmurs/rubs/gallops Lungs: diffuse wheezes,no crackles Abdomen: Normal audible bowel sounds, no distension, No palpable masses, no organomegaly, no rebound/guarding/ or rigidity Musculoskeletal: muscle atrophy noted, ROM is limited due to being in hospital bed, no swelling bilateral lower extremities Vascular: Normal carotid, radial, femoral, posterior tibial, and dorsalis pedis pulses Lymph: no supraclavicular, axillary, or anterior/posterior cervical adenopathy Neuro: CN II-X grossly intact, normal sensation upper and lower extremities Constitutional Vital Signs - 24 hr 01/12/23 14:48 01/12/23 15:42 01/12/23 19:15 Temperature 97.8 F Pulse Rate 78 Respiratory Rate 18 Blood Pressure [Right Arm] 138/84 H Pulse Oximetry 92 L 90 L Oxygen Delivery Method Room Air Room Air Room Air 01/12/23 19:31 01/12/23 19:15 01/12/23 21:52 Temperature 98.6 F Pulse Rate 100 H 98 H 103 H Respiratory Rate 20 20 20 Blood Pressure [Right Arm] 134/68 H Pulse Oximetry 90 L 90 L 90 L Oxygen Delivery Method Room Air Room Air Room Air 01/12/23 22:52 01/12/23 23:01 01/13/23 03:54 Temperature Pulse Rate 90 103 H 98 H Respiratory Rate 18 20 18 Blood Pressure [Right Arm] Pulse Oximetry 93 L 96 97 Oxygen Delivery Method Room Air Room Air Room Air 01/13/23 03:42 01/13/23 05:42 01/13/23 07:50 Temperature 98.9 F Pulse Rate 89 96 H 106 H Respiratory Rate 18 20 20 Blood Pressure [Right Arm] 145/54 H Pulse Oximetry 95 92 L 95 Oxygen Delivery Method Room Air Room Air Room Air 01/13/23 11:17 Temperature Pulse Rate 94 H Respiratory Rate 20 Blood Pressure [Right Arm] Pulse Oximetry 94 L Oxygen Delivery Method Room Air Progress Note: Objective Labs Labs: Short CBC 01/13/23 Range/Units 04:13 WBC 23.6 H (4.0-11.0) 10^3/uL Hgb 12.9 (12.0-16.0) g/dL Hct 39.4 (36.0-48.0) % Plt Count 339 (150-450) 10^3/uL BMP 01/13/23 04:13 Sodium 138 Potassium 4.2 Chloride 103 Carbon Dioxide 24.3 BUN 19.0 H Creatinine 1.11 H Glucose 201 H Calcium 9.5 Liver Function 01/13/23 Range/Units 04:13 Total Bilirubin 0.6 (0.2-1.0) mg/dL AST 9 L (15-37) U/L ALT 26 (14-59) U/L Alkaline Phosphatase 64 (46-116) U/L Albumin 3.1 L (3.4-5.0) g/dL Progress Note: A&P Assessment and Plan (1) Sepsis: Assessment and Plan: resolved Qualifiers: Sepsis type: sepsis due to unspecified organism Sepsis acute organ dysfunction status: with acute organ dysfunction Severe sepsis acute organ dysfunction type: acute respiratory failure (2) Respiratory failure with hypoxia: Assessment and Plan: improved (3) Acute exacerbation of chronic obstructive pulmonary disease: Assessment and Plan: continue steroids, nebs, discussed outpatient PFT's and established pulmonary appt, smoking cessation (4) Pneumonia: Assessment and Plan: continue vanc and zosyn, elevated white blood cell count most likely from steroids Qualifiers: Pneumonia type: due to unspecified organism Laterality: bilateral Lung location: lower lobe of lung Qualified Code(s): J18.9 - Pneumonia, unspecified organism (5) KINDRA (acute kidney injury): Assessment and Plan: improving with IVF down to 1.1 (6) Hypertension: Assessment and Plan: continue home medications Qualifiers: Hypertension type: primary hypertension Qualified Code(s): I10 - Essential (primary) hypertension (7) Anxiety: Assessment and Plan: continue home meds (8) Depression: (9) Failure of outpatient treatment: (10) Continuous tobacco abuse: (11) Bilateral renal cysts: Assessment and Plan: as seen on ultrasound, discussed with patient, recommend outpatient renal CT or MRI. Plan heparin for DVT prophylaxis full code inpatient status, patient expected to stay more than 2 days
[2023-01-13] MEDS: NICOTINE 21 MG PATCH.TD24 TD (12:50)
[2023-01-13 14:31] LABS: SARS-CoV-2 NAA NOT DETECTED (NOT DETECTE)
[2023-01-13] MEDS: VANCOMYCIN HCL 1,000 MG in 0.9 % SODIUM CHLORIDE 250 ML 250 MG IV (15:41)
[2023-01-13 17:16] LABS: Glucometer 202 mg/dL (74-106)
--- NOTE | 2023-01-13 19:09 | PC.NURSE ---
patient had this iv in when nurse came on shift
[2023-01-13] MEDS: OLANZapine 5 MG TABLET PO (21:42)
[2023-01-13 21:52] LABS: Glucometer 228 mg/dL (74-106)
[2023-01-14] MEDS: METHYLPREDNISOLONE SOD SUCC PF 40 MG/ML VIAL IVP ×2 (01:14→10:42)
[2023-01-14] MEDS: PIPERACILLIN SODIUM/TAZOBACTAM 3.375 GM in 0.9 % SODIUM CHLORIDE 50 ML IV ×2 (01:15→10:42)
[2023-01-14 02:32] LABS: Hematocrit 38.7 % (36.0-48.0); Mean Corpuscular HGB Conc 33.6 g/dL (29.9-35.2); Mean Corpuscular Hemoglobin 31.5 pg (26.7-34.0); Mean Corpuscular Volume 93.7 fL (81.0-99.0); Mean Platelet Volume 8.9 fL (9.5-13.5); Platelet Count 311 10^3/uL (150-450); Red Blood Count 4.13 10^6/uL (4.20-5.40); Red Cell Distribution Width 16.9 % (11.0-15.0); White Blood Count 20.8 10^3/uL (4.0-11.0)
[2023-01-14 03:14] LABS: Vancomycin Trough 8.1 ug/mL (5.0-20.0)
[2023-01-14 03:16] LABS: Alanine Aminotransferase 29 U/L (14-59); Albumin Level 2.9 g/dL (3.4-5.0); Alkaline Phosphatase 58 U/L (46-116); Anion Gap 13.8; Aspartate Amino Transferase 9 U/L (15-37); BUN Creatinine Ratio 16.4; Bilirubin Total 0.6 mg/dL (0.2-1.0); Calcium 9.3 mg/dL (8.5-10.1); Carbon Dioxide 25.6 mmol/L (21.0-32.0); Chloride 102 mmol/L (98-107); Estimated GFR (African America 59 (>=60); Estimated GFR (Non-African Ame 49 (>=60); Glucose 199 mg/dL (74-106); Potassium 4.4 mmol/L (3.5-5.1); Sodium 137 mmol/L (136-145); Total Protein 5.9 g/dL (6.4-8.2)
[2023-01-14 03:40] LABS: Lymphocytes Absolute Manual 0.83 10^3/uL (1.20-3.80); Segmented Neut Absolute Manual 19.34 10^3/uL (1.4-6.5)
[2023-01-14] MEDS: VANCOMYCIN HCL 1,000 MG in 0.9 % SODIUM CHLORIDE 250 ML 175 MG IV (03:42)
[2023-01-14 03:46] VITALS: PULSE 85; RESP 18; O2SAT 91
[2023-01-14] MEDS: IPRATROPIUM/ALBUTEROL SULFATE 3 ML AMPUL.NEB IH ×3 (03:46→11:44)
[2023-01-14 03:59] VITALS: PULSE 95; RESP 20; O2SAT 93
[2023-01-14 05:49] VITALS: BP 151/76; PULSE 96; RESP 20; TEMP 36.4; O2SAT 93
[2023-01-14] MEDS: OMEPRAZOLE 20 MG CAPSULE.DR PO (05:51)
[2023-01-14] MEDS: HEPARIN SODIUM (PORCINE) 5,000 UNIT/ML VIAL 5000 UNIT SUBQ (05:51)
[2023-01-14 07:25] VITALS: O2SAT 94
[2023-01-14 08:01] LABS: Glucometer 151 mg/dL (74-106)
[2023-01-14] MEDS: INSULIN ASPART 300 UNIT/3 ML PEN SUBQ (08:18)
[2023-01-14] MEDS: AMLODIPINE BESYLATE 5 MG TABLET 10 MG PO (08:19)
[2023-01-14] MEDS: ASPIRIN 81 MG TABLET.DR PO (08:19)
[2023-01-14] MEDS: DULOXETINE HCL 30 MG CAPSULE.DR 90 MG PO (08:19)
[2023-01-14] MEDS: POTASSIUM CHLORIDE 10 MEQ ER TABLET PO (08:19)
[2023-01-14] MEDS: CETIRIZINE HCL 10 MG TABLET PO (08:19)
[2023-01-14 11:46] VITALS: O2SAT 92
--- NOTE | 2023-01-14 12:21 | PM.DS1 ---
DS: Providers Provider Date of admission: 01/11/23 22:10 Primary care physician: SANDY YOUSSEF Admitting clinician: Shaikh Alexandra Discharging clinician: Kirsten Monroy DS: Diagnosis Discharge Diagnosis (1) Sepsis: Qualifiers: Sepsis type: sepsis due to unspecified organism Sepsis acute organ dysfunction status: with acute organ dysfunction Severe sepsis acute organ dysfunction type: acute respiratory failure (2) Respiratory failure with hypoxia: (3) Acute exacerbation of chronic obstructive pulmonary disease: (4) Pneumonia: Qualifiers: Pneumonia type: due to unspecified organism Laterality: bilateral Lung location: lower lobe of lung Qualified Code(s): J18.9 - Pneumonia, unspecified organism (5) KINDRA (acute kidney injury): (6) Hypertension: Qualifiers: Hypertension type: primary hypertension Qualified Code(s): I10 - Essential (primary) hypertension (7) Anxiety: (8) Depression: (9) Failure of outpatient treatment: (10) Continuous tobacco abuse: (11) Bilateral renal cysts: DS: Summary Hospital Course Hospital Course: (1) Sepsis: resolved (2) Respiratory failure with hypoxia: improved doing well on room air, normal walk test (3) Acute exacerbation of chronic obstructive pulmonary disease: continue steroids will d/c on discharge, nebs at home twice daily until follow up by pcp, discussed outpatient PFT's and established pulmonary appt, smoking cessation (4) Pneumonia: continue vanc and zosyn, elevated white blood cell count most likely from steroids but improved today, discharge on Bactrim and AUgmentin BID x 7 days (5) KINDRA (acute kidney injury): improving with IVF down to 1.1 (6) Hypertension: continue home medications no changes (7) Anxiety: continue home meds 8 ) Continuous tobacco abuse: (9) Bilateral renal cysts: as seen on ultrasound, discussed with patient results, recommend outpatient renal CT or MRI and she said this is already in the works by her pcp Status at Discharge Functional status at discharge: independent ambulation Overall status at discharge: patient is progressing back to baseline Time Spent with Patient Time attestation: Total time spent providing and/or coordinating discharge services: Exam Narrative Exam Narrative: General: Patient is alert, and oriented to person, place and time with normal affect, proper hygiene Skin: no visible rashes, or ulcers Heart: Normal rate and rhythm, no murmurs/rubs/gallops Lungs: audible wheezes upper lobes but no crackles and normal breath sounds all lung perdomo Abdomen: Normal audible bowel sounds, no distension, No palpable masses, no organomegaly, no rebound/guarding/ or rigidity Musculoskeletal: muscle atrophy noted, ROM is limited due to being in hospital bed, no swelling bilateral lower extremities Vascular: Normal carotid, radial, femoral, posterior tibial, and dorsalis pedis pulses Lymph: no supraclavicular, axillary, or anterior/posterior cervical adenopathy Neuro: CN II-X grossly intact, normal sensation upper and lower extremities Constitutional Vital Signs - 24 hr 01/13/23 14:00 01/13/23 15:51 01/13/23 19:09 Temperature 99.1 F Pulse Rate 100 H 92 H Respiratory Rate 22 20 Blood Pressure [Left Arm] Blood Pressure [Right Arm] 144/78 H Pulse Oximetry 90 L 93 L 91 L Oxygen Delivery Method Room Air Room Air Room Air 01/13/23 19:09 01/13/23 19:20 01/13/23 21:50 Temperature 97.6 F Pulse Rate 90 91 H 93 H Respiratory Rate 18 18 20 Blood Pressure [Left Arm] Blood Pressure [Right Arm] 131/78 H Pulse Oximetry 91 L 92 L 91 L Oxygen Delivery Method Room Air Room Air Room Air 01/13/23 22:44 01/13/23 22:57 01/14/23 03:46 Temperature Pulse Rate 99 H 91 H 85 Respiratory Rate 22 20 18 Blood Pressure [Left Arm] Blood Pressure [Right Arm] Pulse Oximetry 94 L 93 L 91 L Oxygen Delivery Method Room Air Room Air Room Air 01/14/23 03:59 01/14/23 05:49 01/14/23 07:25 Temperature 97.6 F Pulse Rate 95 H 96 H Respiratory Rate 20 20 Blood Pressure [Left Arm] 151/76 H Blood Pressure [Right Arm] Pulse Oximetry 93 L 93 L 94 L Oxygen Delivery Method Room Air Room Air Room Air 01/14/23 11:46 Temperature Pulse Rate Respiratory Rate Blood Pressure [Left Arm] Blood Pressure [Right Arm] Pulse Oximetry 92 L Oxygen Delivery Method Room Air DS: Data Data Completed and Pending Labs on day of discharge: Labs from last 24 hours 01/14/23 01/14/23 01/13/23 07:53 02:10 21:40 WBC 20.8 H RBC 4.13 L Hgb 13.0 Hct 38.7 MCV 93.7 MCH 31.5 MCHC 33.6 RDW 16.9 H Plt Count 311 MPV 8.9 L Seg Neuts % (Manual) 93.0 Lymphocytes % (Manual) 4.0 L Atypical Lymphs % (Man) 3.0 Monocytes % (Manual) 0.0 L Eosinophils % (Manual) 0.0 L Basophils % (Manual) 0.0 L Neutrophils # (Manual) 19.34 H Lymphocytes # (Manual) 0.83 L Monocytes # (Manual) 0.00 L Eosinophils # (Manual) 0.00 Basophils # (Manual) 0.00 Sodium 137 Potassium 4.4 Chloride 102 Carbon Dioxide 25.6 Anion Gap 13.8 BUN 19.0 H Creatinine 1.16 H Est GFR ( Amer) 59 L Est GFR (Non-Af Amer) 49 L BUN/Creatinine Ratio 16.4 Glucose 199 H Calcium 9.3 Total Bilirubin 0.6 AST 9 L ALT 29 Alkaline Phosphatase 58 Total Protein 5.9 L Albumin 2.9 L Globulin 3.0 Albumin/Globulin Ratio 1.0 Vancomycin Trough 8.1 SARS-CoV-2 RNA (SUSAN) POC Glucose 151 H 228 H 01/13/23 01/11/23 17:00 20:40 WBC RBC Hgb Hct MCV MCH MCHC RDW Plt Count MPV Seg Neuts % (Manual) Lymphocytes % (Manual) Atypical Lymphs % (Man) Monocytes % (Manual) Eosinophils % (Manual) Basophils % (Manual) Neutrophils # (Manual) Lymphocytes # (Manual) Monocytes # (Manual) Eosinophils # (Manual) Basophils # (Manual) Sodium Potassium Chloride Carbon Dioxide Anion Gap BUN Creatinine Est GFR ( Amer) Est GFR (Non-Af Amer) BUN/Creatinine Ratio Glucose Calcium Total Bilirubin AST ALT Alkaline Phosphatase Total Protein Albumin Globulin Albumin/Globulin Ratio Vancomycin Trough SARS-CoV-2 RNA (SUSAN) Not detected POC Glucose 202 H Preliminary micro results at discharge 01/11/23 17:45 Blood Culture Result 1 - Preliminary Blood 01/11/23 17:50 Blood Culture Result 1 - Preliminary Blood Discharge Plan Discharge Condition: Good Discharge Medications: New sulfamethoxazole-trimethoprim [Bactrim DS] 800-160 mg tablet 1 tab PO BID 7 Days Qty: 14 0RF amoxicillin-pot clavulanate 875-125 mg tablet 1 tab PO BID 7 Days Qty: 14 0RF Continued potassium chloride [K-Tab] 10 mEq tablet extended release 10 meq PO DAILY aspirin 81 mg capsule 81 mg PO DAILY 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 1 tab PO QDAY loratadine [Allerclear] 10 mg tablet 10 mg PO DAILY cyclobenzaprine 10 mg tablet 5 mg PO QPM duloxetine [Cymbalta] 60 mg capsule,delayed release(DR/EC) 90 mg PO DAILY diclofen czv-khorsq-a-karla-ment 50 mg-0.025 %- 25 %-6 % kit, liquid and tablet del rel 100 ea topical QDAY omega 1-ikq-hrk-fish oil [Fish Oil] 1,000 mg (120 mg-180 mg) capsule 1 cap PO DAILY magnesium glycinate 100 mg magnesium capsule 400 mg PO QDAY olanzapine 5 mg tablet 7.5 mg PO QPM amlodipine 10 mg tablet 10 mg PO DAILY omeprazole 20 mg capsule,delayed release(DR/EC) 20 mg PO DAILY tramadol 50 mg tablet 50 mg PO DAILY PRN (Reason: pain) Activity: increase activity as tolerated and return to work once cleared by your PCP/specialist Diet: advance to your usual diet Forms: Portal Instructions Follow Up Appointments: Has appt with pcp sunday- will need further work up of right renal cyst as outpatient MRI or CT this was discussed with patient, please given Dr. Hickey clinic number to make new patient appt for establish care and PFT's
--- NOTE | 2023-01-15 09:57 | CM.DCFOLLOWU ---
Person spoke with:patient How are you feeling? tired, but doing alright How is your pain? just some pain due to her coughing Did you understand your discharge instructions? yes Do you have any questions about your discharge instructions? no Were you given any prescriptions at discharge? yes Were you able to get your prescriptions filled? yes Do you understand how to take your medications as ordered? yes Do you have any questions about your follow up appointment and do you plan to keep your follow up appointment? No questions and yes will see PCP Sunday, and will call Dr. Hickey's office to schedule follow up Is there anything else that you would like to discuss? no Questions/Comments/Concerns/Other:
== END 2023-01-14 13:22 | disposition home or self-care (01) | DRG 871 ==
LOC: ER 21:04 → MS 01-12 07:35
PROVIDERS: Internal Medicine; Admitting Provider Family Medicine; Emergency Provider Emergency Medicine; PCP Family Medicine; Visit Provider Internal Medicine
DX: A41.9 Sepsis, unspecified organism (principal); J18.9 Pneumonia, unspecified organism; J96.21 Acute and chronic respiratory failure with hypoxia; N17.9 Acute kidney failure, unspecified; J44.1 Chronic obstructive pulmonary disease with (acute) exacerbation; J44.0 Chronic obstructive pulmonary disease with (acute) lower respiratory infection; F17.210 Nicotine dependence, cigarettes, uncomplicated; R65.20 Severe sepsis without septic shock; I10 Essential (primary) hypertension; F41.9 Anxiety disorder, unspecified; F32.A Depression, unspecified; N28.1 Cyst of kidney, acquired; E11.9 Type 2 diabetes mellitus without complications; Z20.822 Contact with and (suspected) exposure to COVID-19; Z79.1 Long term (current) use of non-steroidal anti-inflammatories (NSAID); Z79.82 Long term (current) use of aspirin; Z79.891 Long term (current) use of opiate analgesic; Z79.899 Other long term (current) drug therapy; Z88.5 Allergy status to narcotic agent
CPT/HCPCS: 36415; 71046; 71275; 76770; 80048; 80053; 80202; 83036; 84484; 85007; 85025; 85027; 87040; 87635; 87811; 93005; 94640; 94761; 96365; 96366; 96367; 96368; 96372; 96375; 96376; 99285; 99406; G0378; J2920; J2930; J3370; Q3014; Q9967; U0003

== ENCOUNTER 2023-01-22 13:21 | Outpatient (OUT) | payer OTHER, SELFPAY ==
--- NOTE | 2023-01-22 14:10 | P.CN_ITS ---
Consult Note: HPI Data of Consult Patient: known to practice within the last 3 years Consult date: 01/22/23 Requesting Physician: Yamile Lopez MD Primary Care Provider: SANDY YOUSSEF Consult Narrative Reason for consult: Low back, right lower extremity pain Narrative: This is a pleasant 52-year-old female who presents for assessment. She recently underwent a right sacroiliac joint injection, which provided significant relief for approximately one week, but she now has pain that radiates from her low back into her right lower extremity. She recently underwent a lumbar MRI, which significant for moderate to severe narrowing at multiple levels, including L3- L4, L4-L5, and L5-S1. There is also markedly facet arthropathy at her lower lumbar spine. She continues to engage in provider directed home exercises. She denies adverse medication side effects or loss of bowel or bladder control. cc:: CC: Yamile Lopez MD Review of Systems ROS Status of ROS 10 or more systems reviewed and unremarkable except as noted in history and below PFSH PFS Medical History Surgical History Social History Gender Identity: female Meds Home Medications and Allergies Home Medications Medication Instructions Recorded Confirmed Type 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 1 tab PO QDAY 01/03/23 01/12/23 History amlodipine 10 mg tablet 10 mg PO DAILY 01/03/23 01/12/23 History aspirin 81 mg capsule 81 mg PO DAILY 01/03/23 01/12/23 History cyclobenzaprine 10 mg tablet 5 mg PO QPM 01/03/23 01/12/23 History diclofenac 50 mg tablet 100 ea topical QDAY 01/03/23 01/12/23 History del.rel-capsai 0.025%-m-salic 25%-ment 6% liqd duloxetine 60 mg capsule,delayed 90 mg PO DAILY 01/03/23 01/12/23 History release (Cymbalta) loratadine 10 mg tablet 10 mg PO DAILY 01/03/23 01/12/23 History (Allerclear) magnesium glycinate 400 mg PO QDAY 01/03/23 01/12/23 History olanzapine 5 mg tablet 7.5 mg PO QPM 01/03/23 01/12/23 History omega 4-wos-xdx-fish oil 1,000 mg 1 cap PO DAILY 01/03/23 01/12/23 History (120 mg-180 mg) capsule (Fish Oil) omeprazole 20 mg capsule,delayed 20 mg PO DAILY 01/03/23 01/12/23 History release tramadol 50 mg tablet 50 mg PO DAILY PRN pain 01/03/23 01/12/23 History potassium chloride 10 mEq 10 meq PO DAILY 01/12/23 01/12/23 History tablet,extended release (K-Tab) amoxicillin 875 mg-potassium 1 tab PO BID 7 days #14 tabs 01/14/23 Rx clavulanate 125 mg tablet sulfamethoxazole 800 1 tab PO BID 7 days #14 tabs 01/14/23 Rx mg-trimethoprim 160 mg tablet (Bactrim DS) Allergies Allergy/AdvReac Type Severity Reaction Status Date / Time hydromorphone [From Dilaudid] Allergy Mild Verified 01/11/23 17:12 Exam Constitutional Common normals: no apparent distress, oriented x3 and healthy appearing Respiratory Common normals: normal respiratory effort Effort & inspection: able to speak in complete sentences Back & Pelvis Other: tenderness to palpation throughout the lumbar spine and paraspinal muscular. Pain is elicited with flexion, extension, and lateral rotation of the lumbar spine. Facet loading maneuvers are positive bilaterally. Strength is noted to be unremarkable throughout the bilateral lower extremities except for decreassed strength rated at four out of five in the right quadriceps femoris, anterior tibialis. Sensation noted to be unremarkable throughout the bilateral lower extremities except for dysesthesia in the right L3, L4, L5, S1 dermatomal distributions. Coordination remains intact. Gait remains nonantalgic. Extremity Common normals: normal to inspection Neuro Common normals: oriented x3, CN's II-XII intact bilaterally and no focal motor deficits Psych Common normals: mental status grossly normal and cooperative Assessment and Plan Assessment and Plan (1) Lumbar stenosis with neurogenic claudication: (2) Lumbar spondylosis: Plan this is a pleasant 52-year-old female who presents for assessment. She has persistence of pain throughout her low back that radiates into the right lower extremity. Her imaging was reviewed, as noted above. Given her symptomatology and imaging findings, it is prudent to attempt a right L3, L4 transforaminal epidural steroid injection, followed by a right L5, S1 transforaminal epidural steroid injection. She is in agreement with this plan. She may even benefit from a repeat lumbar radiculopathy ablation, which she had completed last year and provided significant relief. Medications were reviewed, no changes were made at this time. She will follow-up after the procedure is complete.
== END 2023-01-22 13:22 | disposition home or self-care (01) ==
LOC: PM 13:21
PROVIDERS: PCP Family Medicine; Visit Provider Anesthesiology
DX: M47.816 Spondylosis without myelopathy or radiculopathy, lumbar region (principal); M48.062 Spinal stenosis, lumbar region with neurogenic claudication
CPT/HCPCS: G0463

== ENCOUNTER 2023-02-05 06:45 | Day surgery (SDC) | payer OTHER, SELFPAY ==
[2023-02-05 07:04] VITALS: BP 136/78; PULSE 95; RESP 16; TEMP 36.8; O2SAT 96
[2023-02-05] MEDS: BUPIVACAINE HCL 0.25% PF 25 MG/10 ML VIAL INJ (07:39)
[2023-02-05] MEDS: IOHEXOL 240 MG/ML - 10 ML VIAL INJ (07:40)
[2023-02-05] MEDS: TRIAMCINOLONE ACETONIDE 40 MG/ML VIAL INJ (07:41)
[2023-02-05] MEDS: LIDOCAINE HCL 2% PF 100 MG/5 ML VIAL INJ (07:41)
[2023-02-05 07:43] VITALS: BP 135/87; BP 140/81; PULSE 75; PULSE 83; RESP 18; O2SAT 92; O2SAT 94
--- NOTE | 2023-02-05 07:44 | P.ON_ITS ---
Date of procedure: 02/05/23 Pre-op diagnosis: lumbar stenosis with neurogenic claudication Post-op diagnosis: same Procedure: Left L4-5, L5-S1 transforaminal epidural steroid injection Medication: Bupivacaine 0.25% 3cc, kenalog 80mg The patient was seen and examined in the preoperative holding area.? Informed consent was obtained and placed on the chart.? Patient was brought to the medical procedure unit and placed in the prone position where a timeout was completed verifying the correct patient, procedure site, position, and planned special equipment using sterile aseptic technique.? Under direct fluoroscopic visualization a 25-gauge Quincke tipped spinal needle was advanced to the designated neural foramen where contrast dye was injected to show adequate spread.? The needle was inserted at level left L4-5. There was no evidence of vascular or adverse uptake.? Epidural spread was appreciated.? The above- mentioned injectate was then placed in a 1.5 mL aliquot preceded by negative aspiration.? The needle was removed. The needle was inserted and the procedure repeated at level left L5-S1.? The surgery site was covered.? Patient was taken to the postprocedural recovery area and monitored for an appropriate length of time before found suitable for discharge in the accompaniment of a responsible adult. Anesthesia: None Surgeon: Yamile Lopez Condition: stable
== END 2023-02-05 07:47 ==
LOC: SURGOUT 06:45
PROVIDERS: PCP Family Medicine; Visit Provider Anesthesiology
DX: M48.062 Spinal stenosis, lumbar region with neurogenic claudication (principal)
CPT/HCPCS: 64483; 64484; Q9966

== ENCOUNTER 2023-02-15 16:56 | Emergency (ER) | payer OTHER, SELFPAY ==
[2023-02-15 17:03] VITALS: BP 145/95; PULSE 86; RESP 20; TEMP 37.4; O2SAT 95; BMI 37.9
--- NOTE | 2023-02-15 17:10 | ECG_ITS ---
The [facility] Test Date: 2023-02-15 Pat Name: DHARA BETTENCOURT Department: Room: - Gender: Female Platform Architect: : 1970 Requested By: SANDY YOUSSEF Order Number: [id number] Reading MD: ISHAN GARCIA Measurements Intervals [place] Rate: 77 P: 71 NV: 154 QRS: 96 QRSD: 86 T: 54 QT: 374 QTc: 406 Interpretive Statements 1100 Sinus rhythm 7102 Moderate right axis deviation 9110 normal ECG Compared to ECG 01/11/2023 17:54:55 Right-axis deviation now present T-wave abnormality no longer present Electronically Signed On 02-17-2023 7:33:25 EDT by ISHAN GARCIA
--- NOTE | 2023-02-15 17:10 | XR_ITS ---
The [address] [address] Patient Name: DHARA BETTENCOURT MRN: [id number] date: 1970 Sex: F Assigned Patient Location: ER Current Patient Location: ER Accession/Order Number: [id number] Exam Date: 02/15/2023 17:28 Report Date: 02/15/2023 18:16 At the request of: WILMA PAEZ Procedure: XR chest 2V EXAM: XR chest 2V REASON FOR EXAM: Female, 52 years, cough. TECHNIQUE: PA and lateral views of the chest are performed. COMPARISON: 01/12/2023. FINDINGS: There is minimal linear atelectasis at the left lung base. Normal pleura. Normal size heart. Normal mediastinum and antwon. Normal visualized pulmonary arteries. Normal visualized aortic arch and descending thoracic aorta. Normal visualized thoracic spine. Normal visualized ribs, clavicles, and shoulders. There is no demonstrated abnormality of the visualized soft tissue structures of the upper abdomen. XR/XR chest 2V IMPRESSION: Minimal atelectasis within the left lung base. Electronically authenticated by: NIKITA BUENO Date: 02/15/2023 18:16
[2023-02-15 18:11] VITALS: O2SAT 96
--- NOTE | 2023-02-15 18:21 | ED.GENADUL1 ---
HPI - General Adult General Chief complaint: Recheck/Abnormal Lab/Rx Stated complaint: ADBNORMAL LABS Time Seen by Provider: 02/15/23 17:10 Source: patient Mode of arrival: walk-in Limitations: no limitations History of Present Illness HPI narrative: patient is a 52-year-old female referred to the emergency department by her family nurse practitioner for continued elevated white blood cell count. Patient states that she was treated one month ago for upper respiratory symptoms of cough, chest congestion and was given breathing treatments and an inhaler. She states she has continued to have cough, sputum production, chest congestion and discomfort with coughing over the last month. Her white blood cell count was repeated by her nurse practitioner today and was still elevated so she was referred to the emergency department. She states she was not given any breathing treatments or steroids. Related Data Home Medications Medication Instructions Recorded Confirmed 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 1 tab PO QDAY 01/03/23 02/05/23 amlodipine 10 mg tablet 10 mg PO DAILY 01/03/23 02/05/23 aspirin 81 mg capsule 81 mg PO DAILY 01/03/23 02/05/23 cyclobenzaprine 10 mg tablet 5 mg PO QPM 01/03/23 02/05/23 diclofenac 50 mg tablet 100 ea topical QDAY 01/03/23 02/05/23 del.rel-capsai 0.025%-m-salic 25%-ment 6% liqd duloxetine 60 mg capsule,delayed 90 mg PO DAILY 01/03/23 02/05/23 release (Cymbalta) loratadine 10 mg tablet 10 mg PO DAILY 01/03/23 02/05/23 (Allerclear) magnesium glycinate 400 mg PO QDAY 01/03/23 02/05/23 olanzapine 5 mg tablet 7.5 mg PO QPM 01/03/23 02/05/23 omega 2-afp-yma-fish oil 1,000 mg 1 cap PO DAILY 01/03/23 02/05/23 (120 mg-180 mg) capsule (Fish Oil) omeprazole 20 mg capsule,delayed 20 mg PO DAILY 01/03/23 02/05/23 release tramadol 50 mg tablet 50 mg PO DAILY PRN pain 01/03/23 02/05/23 potassium chloride 10 mEq 10 meq PO DAILY 01/12/23 02/05/23 tablet,extended release (K-Tab) Previous Rx's Medication Instructions Recorded amoxicillin 875 mg-potassium 1 tab PO BID 7 days #14 tabs 01/14/23 clavulanate 125 mg tablet jncenrspwvotpzs-djsezryolkjblww-ZA 10 ml PO Q6H PRN cold symptoms 02/15/23 2 mg-30 mg-10 mg/5 mL oral syrup #118 mL (Bromfed DM) prednisone 20 mg tablet See Rx Instructions .Route 02/15/23 .COMPLEX #12 tabs Allergies Allergy/AdvReac Type Severity Reaction Status Date / Time hydromorphone [From Dilaudid] Allergy Mild Verified 02/05/23 06:58 PFSH PFSH Medical History Surgical History Social History Smoking status: Heavy tobacco smoker Gender Identity: female Exam Constitutional Vital Signs, click to edit/add: Last Vital Signs Temp 99.3 F 02/15/23 17:03 Pulse 86 02/15/23 17:03 Resp 20 02/15/23 17:03 BP 145/95 H 02/15/23 17:03 Pulse Ox 96 02/15/23 18:11 O2 Del Method Room Air 02/15/23 18:11 Course Vital Signs Vital signs: Vital Signs Temperature 99.3 F 02/15/23 17:03 Pulse Rate 86 02/15/23 17:03 Respiratory Rate 20 02/15/23 17:03 Blood Pressure 145/95 H 02/15/23 17:03 Pulse Oximetry 95 02/15/23 17:03 Oxygen Delivery Method Room Air 02/15/23 17:03 Temperature 99.3 F 02/15/23 17:03 Pulse Rate 86 02/15/23 17:03 Respiratory Rate 20 02/15/23 17:03 Blood Pressure 145/95 H 02/15/23 17:03 Pulse Oximetry 96 02/15/23 18:11 Oxygen Delivery Method Room Air 02/15/23 18:11 Medical Decision Making MDM Narrative Medical decision making narrative: patient's white blood cell count is still elevated but stable to improved from previous. The remainder of her labs show no evidence of sepsis or acute cardiopulmonary abnormalities. She was treated with breathing treatments for significant inspiratory and expiratory wheezing with scattered rhonchi. She maintained stable vital signs in the Emergency Room. Chest x-ray with no evidence of acute cardiopulmonary changes. She had a CTA of her chest within the last month. she states she was seen by local pulmonology earlier this week but was not started on any medications. At this time we will start the patient on steroids which will help with her breathing and chest congestion. Bromfed-DM given as well. She has inhalers at home. She is referred to hematology oncology for persistent leukocytosis. Return to the Emergency Room if symptoms change or worsen. Medical Records Medical records reviewed: Yes I reviewed the patient's medical records Lab Data Lab results reviewed: Yes I reviewed the patient's lab results Labs: Lab Results 02/15/23 Range/Units 18:15 WBC 19.8 H (4.0-11.0) 10^3/uL RBC 4.90 (4.20-5.40) 10^6/uL Hgb 15.4 (12.0-16.0) g/dL Hct 46.5 (36.0-48.0) % MCV 94.9 (81.0-99.0) fL MCH 31.4 (26.7-34.0) pg MCHC 33.1 (29.9-35.2) g/dL RDW 16.5 H (11.0-15.0) % Plt Count 375 (150-450) 10^3/uL MPV 9.1 L (9.5-13.5) fL Neut % (Auto) 69.6 (43.0-75.0) % Lymph % (Auto) 22.2 (20.5-60.0) % [place] % (Auto) 6.0 (1.7-12.0) % Eos % (Auto) 0.5 L (0.9-7.0) % Baso % (Auto) 0.5 (0.2-2.0) % Neut # (Auto) 13.8 H (1.4-6.5) 10^3/uL Lymph # (Auto) 4.4 H (1.2-3.8) 10^3/uL [place] # (Auto) 1.2 H (0.3-0.8) 10^3/uL Eos # (Auto) 0.1 (0.0-0.7) 10^3/uL Baso # (Auto) 0.1 (0.0-0.1) 10^3/uL Abs Immat Gran (auto) 0.24 H (0.00-0.03) 10^3/uL Imm/Tot Granulo (auto) 1.2 H (0.0-0.5) % D-Dimer 0.22 (<=0.59) mg/L FEU Imaging Data Chest x-ray: Attestation: I have reviewed the pertinent imaging results. Radiologist's impression: Procedure: XR chest 2V EXAM: XR chest 2V REASON FOR EXAM: Female, 52 years, cough. TECHNIQUE: PA and lateral views of the chest are performed. COMPARISON: 01/12/2023. FINDINGS: There is minimal linear atelectasis at the left lung base. Normal pleura. Normal size heart. Normal mediastinum and antwon. Normal visualized pulmonary arteries. Normal visualized aortic arch and descending thoracic aorta. Normal visualized thoracic spine. Normal visualized ribs, clavicles, and shoulders. There is no demonstrated abnormality of the visualized soft tissue structures of the upper abdomen. IMPRESSION: Minimal atelectasis within the left lung base. Electronically authenticated by: NIKITA BUENO Date: 02/15/2023 18:16 ECG Data Attestation: I personally reviewed and interpreted this ECG as follows: (normal sinus rhythm at a rate of seventy-seven, no acute ST elevation or ectopy. EKG reviewed by attending physician) Discharge Plan Discharge Chief Complaint: Recheck/Abnormal Lab/Rx Clinical Impression: Leukocytosis, Bronchitis Patient Disposition: Home, Self-Care Time of Disposition Decision: 19:23 Condition: Good Prescriptions / Home Meds: New tewtneygnswtroy-ssirytzak-FE [Bromfed DM] 2-30-10 mg/5 mL syrup 10 ml PO Q6H PRN (Reason: cold symptoms) Qty: 118 0RF prednisone 20 mg tablet See Rx Instructions .ROUTE .COMPLEX Qty: 12 0RF Rx Instructions: 3 tabs daily for 2 days, then 2 tabs daily for 2 days, then 1 tab daily for 2 days No Action potassium chloride [K-Tab] 10 mEq tablet extended release 10 meq PO DAILY amoxicillin-pot clavulanate 875-125 mg tablet 1 tab PO BID 7 Days Qty: 14 0RF aspirin 81 mg capsule 81 mg PO DAILY 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 1 tab PO QDAY loratadine [Allerclear] 10 mg tablet 10 mg PO DAILY cyclobenzaprine 10 mg tablet 5 mg PO QPM duloxetine [Cymbalta] 60 mg capsule,delayed release(DR/EC) 90 mg PO DAILY diclofen czy-hising-e-karla-ment 50 mg-0.025 %- 25 %-6 % kit, liquid and tablet del rel 100 ea topical QDAY omega 7-gri-dst-fish oil [Fish Oil] 1,000 mg (120 mg-180 mg) capsule 1 cap PO DAILY magnesium glycinate 100 mg magnesium capsule 400 mg PO QDAY olanzapine 5 mg tablet 7.5 mg PO QPM amlodipine 10 mg tablet 10 mg PO DAILY omeprazole 20 mg capsule,delayed release(DR/EC) 20 mg PO DAILY tramadol 50 mg tablet 50 mg PO DAILY PRN (Reason: pain) Instructions: Acute Bronchitis (ED), Leukocytosis (ED) Additional Instructions: Follow up with hematology/oncology [phone] Stand Alone Forms: Portal Instructions Referrals: SANDY YOUSSEF [Primary Care Provider] - 1 week
[2023-02-15 18:33] LABS: Basophils Absolute Auto 0.1 10^3/uL (0.0-0.1); Basophils Percent Auto 0.5 % (0.2-2.0); Eosinophils Absolute Auto 0.1 10^3/uL (0.0-0.7); Eosinophils Percent Auto 0.5 % (0.9-7.0); Hematocrit 46.5 % (36.0-48.0); Hemoglobin 15.4 g/dL (12.0-16.0); Immature Granulocytes Abs Auto 0.24 10^3/uL (0.00-0.03); Immature Granulocytes Pct Auto 1.2 % (0.0-0.5); Lymphocytes Absolute Auto 4.4 10^3/uL (1.2-3.8); Lymphocytes Percent Auto 22.2 % (20.5-60.0); Mean Corpuscular HGB Conc 33.1 g/dL (29.9-35.2); Mean Corpuscular Hemoglobin 31.4 pg (26.7-34.0); Mean Corpuscular Volume 94.9 fL (81.0-99.0); Mean Platelet Volume 9.1 fL (9.5-13.5); Monocytes Absolute Auto 1.2 10^3/uL (0.3-0.8); Neutrophils Absolute Auto 13.8 10^3/uL (1.4-6.5); Neutrophils Percent Auto 69.6 % (43.0-75.0); Platelet Count 375 10^3/uL (150-450); Red Cell Distribution Width 16.5 % (11.0-15.0); White Blood Count 19.8 10^3/uL (4.0-11.0)
[2023-02-15] MEDS: METHYLPREDNISOLONE SOD SUCC PF 125 MG/2 ML VIAL IVP (18:39)
[2023-02-15 18:44] LABS: D Dimer 0.22 mg/L FEU (<=0.59)
[2023-02-15 18:45] LABS: Lactate/Lactic Acid 1.7 mmol/L (0.4-2.0)
[2023-02-15 18:54] LABS: Alanine Aminotransferase 30 U/L (14-59); Albumin Globulin Ratio 1.1; Alkaline Phosphatase 92 U/L (46-116); Aspartate Amino Transferase 11 U/L (15-37); BUN Creatinine Ratio 17.5; Bilirubin Total 0.7 mg/dL (0.2-1.0); Calcium 9.9 mg/dL (8.5-10.1); Carbon Dioxide 26.7 mmol/L (21.0-32.0); Chloride 104 mmol/L (98-107); Estimated GFR (African America >60 (>=60); Estimated GFR (Non-African Ame 56 (>=60); Globulin 3.6 g/dL; Glucose 103 mg/dL (74-106); Potassium 3.7 mmol/L (3.5-5.1); Sodium 140 mmol/L (136-145); Total Protein 7.6 g/dL (6.4-8.2); Troponin I High Sensitivity 6.5 pg/mL (4.0-51.3)
[2023-02-15 19:15] VITALS: PULSE 80; RESP 18; O2SAT 95
[2023-02-15] MEDS: ALBUTEROL SULFATE 2.5 MG/3 ML VIAL NEB IH (19:15)
[2023-02-15] MEDS: IPRATROPIUM/ALBUTEROL SULFATE 3 ML AMPUL.NEB IH (19:15)
--- NOTE | 2023-02-15 19:15 | RESP.RT ---
Breathing treatments given by nursing.
[2023-02-15 19:20] VITALS: RESP 18
== END 2023-02-15 19:44 | disposition home or self-care (01) ==
PROVIDERS: Physician Assistant; Emergency Provider Emergency Medicine Emergency Medical Services; PCP Family Medicine
DX: J40 Bronchitis, not specified as acute or chronic (principal); D72.829 Elevated white blood cell count, unspecified; Z79.82 Long term (current) use of aspirin; Z79.899 Other long term (current) drug therapy; F17.210 Nicotine dependence, cigarettes, uncomplicated
CPT/HCPCS: 36415; 71046; 80053; 83605; 83880; 84484; 85025; 85378; 93005; 94640; 96374; 99285; J2930

== ENCOUNTER 2023-02-26 07:00 | Day surgery (SDC) | payer OTHER, SELFPAY ==
[2023-02-26 07:30] VITALS: BP 137/81; PULSE 93; RESP 16; TEMP 36.7; O2SAT 92
[2023-02-26] MEDS: 0.9 % SODIUM CHLORIDE 10 ML INJ (08:23)
[2023-02-26] MEDS: DEXAMETHASONE SODIUM PHOSPHATE 10 MG/ML VIAL INJ (08:24)
[2023-02-26] MEDS: BUPIVACAINE HCL 0.25% PF 25 MG/10 ML VIAL INJ (08:24)
[2023-02-26] MEDS: IOHEXOL 240 MG/ML - 10 ML VIAL INJ (08:25)
[2023-02-26] MEDS: LIDOCAINE HCL 2% PF 100 MG/5 ML VIAL INJ (08:25)
--- NOTE | 2023-02-26 08:26 | P.ON_ITS ---
Date of procedure: 02/26/23 Pre-op diagnosis: Lumbar stenosis with neurogenic claudication Post-op diagnosis: same Procedure: Procedure: Left L2-3, L3-4 transforaminal epidural steroid injection Medications: Bupivacaine 0.25% 2cc, normal saline 0.9% 1cc, kenalog 80mg The patient was seen and examined in the preoperative holding area.? Informed consent was obtained and placed on the chart.? Patient was brought to the medical procedure unit and placed in the prone position where a timeout was completed verifying the correct patient, procedure site, position, and planned special equipment using sterile aseptic technique.? Under direct fluoroscopic visualization a 25-gauge Quincke tipped spinal needle was advanced to the designated neural foramen where contrast dye was injected to show adequate spread.? The needle was inserted at level left L2-3. There was no evidence of vascular or adverse uptake.? Epidural spread was appreciated.? The above- mentioned injectate was then placed in a 1.5 mL aliquot preceded by negative aspiration.? The needle was removed. The needle was inserted and the procedure repeated at level left L3-4.? The surgery site was covered.? Patient was taken to the postprocedural recovery area and monitored for an appropriate length of time before found suitable for discharge in the accompaniment of a responsible adult. Anesthesia: None Surgeon: Yamile Lopez Pathology: none sent Condition: stable Disposition: no change
[2023-02-26 13:44] VITALS: BP 158/65; BP 178/78; PULSE 77; PULSE 91; RESP 18; O2SAT 93; O2SAT 94
== END 2023-02-26 08:31 | disposition home or self-care (01) ==
LOC: SURGOUT 07:00
PROVIDERS: PCP Family Medicine; Visit Provider Anesthesiology
DX: M48.062 Spinal stenosis, lumbar region with neurogenic claudication (principal)
CPT/HCPCS: 64483; 64484; J1100; Q9966

== ENCOUNTER 2023-02-28 07:54 | Outpatient (OUT) | payer OTHER, SELFPAY ==
--- NOTE | 2023-02-28 08:14 | CT_ITS ---
The [address] [address] Patient Name: DHARA BETTENCOURT MRN: [id number] date: 1970 Sex: F Assigned Patient Location: CT Current Patient Location: CT Accession/Order Number: [id number] Exam Date: 02/28/2023 08:10 Report Date: 02/28/2023 09:37 At the request of: MARNIE RODRIGUES Procedure: CT head/brain wo con EXAMINATION: CT head/brain wo con HISTORY: Dizziness R42, Unsteady Gait R26.81 COMPARISON: No relevant comparison available. TECHNIQUE: Axial CT images were obtained without IV contrast. Dose reduction techniques were achieved by using automated exposure control and/or adjustment of mA and/or kV according to patient size and/or use of iterative reconstruction technique. FINDINGS: BRAIN: No edema, hemorrhage, mass, acute infarction, or inappropriate atrophy. CSF SPACES: No hydrocephalus, subarachnoid hemorrhage, or mass. Appropriate for age. SKULL: No fracture, mass, or other significant visible lesion. SINUSES: No significant mucosal thickening or fluid on the limited views. ORBITS: No appreciable abnormality on the limited views. OTHER: Negative CT/CT head/brain wo con IMPRESSION: 1. Normal CT appearance of the brain. No suspicious findings. 2. Clear sinuses. Electronically authenticated by: BRANDON CRZU Date: 02/28/2023 09:37
== END 2023-02-28 07:55 | disposition home or self-care (01) ==
LOC: CT 07:55
PROVIDERS: PCP Family Medicine; Visit Provider Nurse Practitioner Family
DX: R42 Dizziness and giddiness (principal); Z82.3 Family history of stroke; R26.81 Unsteadiness on feet; R25.1 Tremor, unspecified
CPT/HCPCS: 70450

== ENCOUNTER 2023-03-14 09:20 | Outpatient (OUT) | payer OTHER, SELFPAY ==
--- NOTE | 2023-03-14 09:51 | PM.CN ---
Consult Note: HPI Data of Consult Patient: known to practice within the last 3 years Requesting Physician: Josefina Graves NP Primary Care Provider: SANDY YOUSSEF Consult Narrative Reason for consult: left L2-3 4-5 ELVIA follow up Narrative: Nesha Dallas a pleasant 52 year old female presents for low back and left hip pain. Pt has a left side L2-3 ELVIA on 02/05/23 and Left L4-5 ELVIA on 02/26/23 with 75% pain relief and improvment in ability to complete ADLs. patient reports she is returning to work next week and feels that she will have benefit in strength from this. Patient has been experiencing intermittent weakness and lightheadedness, following with PCP for this. Patient currently on tramadol 50mg TID PRN pain, gabapentin 300mg HS, flexeril 10mg PRN muscle spasms, and cymbalta 90mg daily. Patient feels back pain is well controlled at this time and would like to discuss left hip pain today. 01/08/23 patient had left SIJ with 90% pain relief for 5 days cc:: CC: Josefina Graves NP Review of Systems ROS Status of ROS 10 or more systems reviewed and unremarkable except as noted in history and below PFSH PFSH Medical History Surgical History Social History Smoking status: Heavy tobacco smoker Gender Identity: female Meds Home Medications and Allergies Home Medications Medication Instructions Recorded Confirmed Type 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 1 tab PO QDAY 01/03/23 02/26/23 History amlodipine 10 mg tablet 10 mg PO DAILY 01/03/23 02/26/23 History aspirin 81 mg capsule 81 mg PO DAILY 01/03/23 02/26/23 History cyclobenzaprine 10 mg tablet 5 mg PO QPM 01/03/23 02/26/23 History diclofenac 50 mg tablet 100 ea topical QDAY 01/03/23 02/26/23 History del.rel-capsai 0.025%-m-salic 25%-ment 6% liqd duloxetine 60 mg capsule,delayed 90 mg PO DAILY 01/03/23 02/26/23 History release (Cymbalta) loratadine 10 mg tablet 10 mg PO DAILY 01/03/23 02/26/23 History (Allerclear) magnesium glycinate 400 mg PO QDAY 01/03/23 02/26/23 History olanzapine 5 mg tablet 7.5 mg PO QPM 01/03/23 02/26/23 History omega 5-nrv-vxs-fish oil 1,000 mg 1 cap PO DAILY 01/03/23 02/26/23 History (120 mg-180 mg) capsule (Fish Oil) omeprazole 20 mg capsule,delayed 20 mg PO DAILY 01/03/23 02/26/23 History release tramadol 50 mg tablet 50 mg PO DAILY PRN pain 01/03/23 02/26/23 History potassium chloride 10 mEq 10 meq PO DAILY 01/12/23 02/26/23 History tablet,extended release (K-Tab) bhhduzbdopakujn-nfqebipcykvxdko-OX 10 ml PO Q6H PRN cold symptoms 02/15/23 02/26/23 Rx 2 mg-30 mg-10 mg/5 mL oral syrup #118 mL (Bromfed DM) prednisone 20 mg tablet See Rx Instructions .Route 02/15/23 02/26/23 Rx .COMPLEX #12 tabs Allergies Allergy/AdvReac Type Severity Reaction Status Date / Time hydromorphone [From Dilaudid] Allergy Mild Verified 02/05/23 06:58 Exam Constitutional Common normals: no apparent distress, oriented x3, healthy appearing, alert and well nourished General appearance: cooperative Nutritional appearance: underweight [facility] Common normals: normocephalic Head and scalp: normocephalic Mouth: oral and palatal mucosa normal Eye Common normals: PERRL Pupil: PERRL Neck & C-Spine Common normals: full ROM General: normal visual inspection Chest Common normals: inspection of chest normal Respiratory Common normals: normal respiratory effort, no retractions and no use of accessory muscles Back & Pelvis Common normals: thoracic and lumbar spine normal to inspection, no thoracic nor lumbar tenderness and thoraco-lumbar ROM normal Sacroiliac joints: SI joint(s) abnormal Other: left SIJ pain with pressure over PSIS. Postive rose marie, thigh thrust, FABERS, and gaenslen's manuevuers on left side Extremity Common normals: normal to inspection and full ROM Neuro Common normals: oriented x3, CN's II-XII intact bilaterally, moves all extremities, no focal motor deficits, no sensory deficits noted, deep tendon reflexes 2+ bilaterally and gait normal Sensorium/orientation: alert Motor exam: strength 5/5 throughout and no movement abnormalities noted Psych Common normals: mental status grossly normal, thought process normal, cooperative, affect normal, speech normal and activity/motor behavior normal Speech: normal speech Thought process: normal thought process Assessment and Plan Assessment and Plan (1) Sacroiliitis: Assessment and Plan: Positive exam findings as listed above. Patient has trialed SIJ injection with moderate pain relief for short duration. Proceed with left LCIH MBB (2) Lumbar stenosis with neurogenic claudication: Assessment and Plan: 75% pain relief from Left L2-3 and Left L4-5 ELVIA and continued improvement in ability to complete ADLs without radiculopathy. (3) Muscle spasm: Assessment and Plan: continue flexeril 10mg PRN (4) Smoker: Assessment and Plan: Patient identified through screening process as a tobacco user, this generated a brief counseling of less than 3 minutes between the provider and the patient about the benefits of ceasing tobacco use. Education handout was provided following discussion.? (5) Obesity (BMI 30-39.9): Assessment and Plan: The patient was counseled that proper dietary changes and consistent participation in a home exercise plan can lead to weight loss. Weight loss can help to improve functionality in patients with chronic pain.? (6) Chronic pain syndrome: Assessment and Plan: The patient was advised that U.S. Food and Drug Administration (FDA) is warning that respiratory depression may occur in patients using gabapentin (Neurontin, Gralise, Horizant) or pregabalin (Lyrica, Lyrica CR) who have respiratory risk factors. These include the use of opioid pain medicines and other drugs that depress the central nervous system, and conditions such as chronic obstructive pulmonary disease (COPD) that reduce lung function. The elderly are also at higher risk.? I have checked an OARRS report on this patient today and there are no aberrancies noted in the prescribing history.?? -refill gabapentin 300mg HS Plan -proceed with left sided LCIH MBB -f/u 1 week after -consider LCIH thermal RFA -continue follow up with PCP -declining PT at this time A urine drug screen was completed and reviewed within the last year. No evidence of aberrancies were noted.?
--- NOTE | 2023-03-14 10:44 | P.CN_ITS ---
Consult Note: HPI Data of Consult Patient: known to practice within the last 3 years Requesting Physician: Josefina Graves NP Primary Care Provider: SANDY YOUSSEF Consult Narrative Reason for consult: L2-3 L4-5 ELVIA follow up Narrative: Nesha Dallas a pleasant 52 year old female presents for low back and left hip pain. Pt has a left side L2-3 ELVIA on 02/05/23 and Left L4-5 ELVIA on 02/26/23 with 75% pain relief and improvment in ability to complete ADLs. patient reports she is returning to work next week and feels that she will have benefit in strength from this. Patient has been experiencing intermittent weakness and lightheadedness, following with PCP for this. Patient currently on tramadol 50mg TID PRN pain, gabapentin 300mg HS, flexeril 10mg PRN muscle spasms, and cymbalta 90mg daily. Patient feels back pain is well controlled at this time and would like to discuss left hip pain today. 01/08/23 patient had left SIJ injection with 90% pain relief for 5 days cc:: CC: Josefina Graves NP Review of Systems ROS Status of ROS 10 or more systems reviewed and unremarkable except as noted in history and below Musculoskeletal Reports: joint pain PFSH PFSH Medical History Surgical History Social History Smoking status: Heavy tobacco smoker Gender Identity: female Meds Home Medications and Allergies Home Medications Medication Instructions Recorded Confirmed Type 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 1 tab PO QDAY 01/03/23 02/26/23 History amlodipine 10 mg tablet 10 mg PO DAILY 01/03/23 02/26/23 History aspirin 81 mg capsule 81 mg PO DAILY 01/03/23 02/26/23 History cyclobenzaprine 10 mg tablet 5 mg PO QPM 01/03/23 02/26/23 History diclofenac 50 mg tablet 100 ea topical QDAY 01/03/23 02/26/23 History del.rel-capsai 0.025%-m-salic 25%-ment 6% liqd duloxetine 60 mg capsule,delayed 90 mg PO DAILY 01/03/23 02/26/23 History release (Cymbalta) loratadine 10 mg tablet 10 mg PO DAILY 01/03/23 02/26/23 History (Allerclear) magnesium glycinate 400 mg PO QDAY 01/03/23 02/26/23 History olanzapine 5 mg tablet 7.5 mg PO QPM 01/03/23 02/26/23 History omega 4-tqv-awk-fish oil 1,000 mg 1 cap PO DAILY 01/03/23 02/26/23 History (120 mg-180 mg) capsule (Fish Oil) omeprazole 20 mg capsule,delayed 20 mg PO DAILY 01/03/23 02/26/23 History release tramadol 50 mg tablet 50 mg PO DAILY PRN pain 01/03/23 02/26/23 History potassium chloride 10 mEq 10 meq PO DAILY 01/12/23 02/26/23 History tablet,extended release (K-Tab) xcucuehjtbtwmnd-godbcpiosynudvi-FI 10 ml PO Q6H PRN cold symptoms 02/15/23 02/26/23 Rx 2 mg-30 mg-10 mg/5 mL oral syrup #118 mL (Bromfed DM) prednisone 20 mg tablet See Rx Instructions .Route 02/15/23 02/26/23 Rx .COMPLEX #12 tabs Allergies Allergy/AdvReac Type Severity Reaction Status Date / Time hydromorphone [From Dilaudid] Allergy Mild Verified 02/05/23 06:58 Exam Constitutional Common normals: no apparent distress, oriented x3, healthy appearing, alert and well nourished General appearance: cooperative Nutritional appearance: overweight [facility] Common normals: normocephalic Head and scalp: normocephalic Mouth: oral and palatal mucosa normal Eye Common normals: PERRL Pupil: PERRL Neck & C-Spine Common normals: full ROM General: normal visual inspection Chest Common normals: inspection of chest normal Respiratory Common normals: normal respiratory effort, no retractions and no use of accessory muscles Back & Pelvis Thoracic spine/upper back: normal to inspection and thoracic ROM normal Lumbar spine/lower back: normal to inspection and lumbar ROM normal Sacroiliac joints: SI joint(s) abnormal Other: left SIJ pain with pressure over PSIS, Positive rose marie, thigh thrust, FABERS and gaenslen maneuvers on the left. Neuro Common normals: oriented x3, CN's II-XII intact bilaterally, moves all extremities, no focal motor deficits, no sensory deficits noted, deep tendon reflexes 2+ bilaterally and gait normal Sensorium/orientation: alert Motor exam: strength 5/5 throughout and no movement abnormalities noted Psych Common normals: mental status grossly normal, thought process normal, cooperative, affect normal, speech normal and activity/motor behavior normal Speech: normal speech Thought process: normal thought process Assessment and Plan Assessment and Plan (1) Sacroiliitis: Assessment and Plan: Positive exam findings as listed above. Patient has trialed SIJ injection with moderate pain relief for short duration. Proceed with nerve block innervating the left SI joint (2) Lumbar stenosis with neurogenic claudication: Assessment and Plan: 75% pain relief from Left L2-3 and Left L4-5 ELVIA and continued improvement in ability to complete ADLs without radiculopathy. (3) Muscle spasm: Assessment and Plan: continue flexeril 10mg PRN (4) Smoker: Assessment and Plan: Patient identified through screening process as a tobacco user, this generated a brief counseling of less than 3 minutes between the provider and the patient about the benefits of ceasing tobacco use. Education handout was provided following discussion.? (5) Obesity (BMI 30-39.9): Assessment and Plan: The patient was counseled that proper dietary changes and consistent participation in a home exercise plan can lead to weight loss. Weight loss can help to improve functionality in patients with chronic pain.? (6) Chronic pain syndrome: Assessment and Plan: The patient was advised that U.S. Food and Drug Administration (FDA) is warning that respiratory depression may occur in patients using gabapentin (Neurontin, Gralise, Horizant) or pregabalin (Lyrica, Lyrica CR) who have respiratory risk factors. These include the use of opioid pain medicines and other drugs that depress the central nervous system, and conditions such as chronic obstructive pulmonary disease (COPD) that reduce lung function. The elderly are also at higher risk.? I have checked an OARRS report on this patient today and there are no aberrancies noted in the prescribing history.?? -refill gabapentin 300mg HS Plan -Proceed with nerve block innervating the left SI joint -f/u 1 week after -continue follow up with PCP -declining PT at this time A urine drug screen was completed and reviewed within the last year. No evidence of aberrancies were noted.?
== END 2023-03-14 09:21 | disposition home or self-care (01) ==
LOC: PM 09:21
PROVIDERS: PCP Family Medicine; Visit Provider Nurse Practitioner
DX: M46.1 Sacroiliitis, not elsewhere classified (principal); M48.062 Spinal stenosis, lumbar region with neurogenic claudication; M62.838 Other muscle spasm
CPT/HCPCS: G0463

== ENCOUNTER 2023-03-26 10:20 | Day surgery (SDC) | payer OTHER, SELFPAY ==
[2023-03-26 11:08] VITALS: BP 145/98; PULSE 94; RESP 20; TEMP 36.6; O2SAT 95
[2023-03-26 11:50] VITALS: BP 145/98; PULSE 94; RESP 20; O2SAT 95
[2023-03-26] MEDS: LIDOCAINE HCL 2% PF 100 MG/5 ML VIAL 3 ML INJ (11:53)
[2023-03-26] MEDS: BUPIVACAINE HCL 0.25% PF 25 MG/10 ML VIAL 2 ML INJ (11:53)
[2023-03-26] MEDS: IOHEXOL 240 MG/ML - 10 ML VIAL INJ (11:53)
[2023-03-26] MEDS: TRIAMCINOLONE ACETONIDE 40 MG/ML VIAL 80 MG INJ (11:53)
[2023-03-26 11:55] VITALS: BP 149/72; PULSE 85; RESP 20; O2SAT 94
--- NOTE | 2023-03-26 11:55 | W.PM.PROCNOT ---
Date of procedure: 03/26/23 Pre-op diagnosis: Sacroiliitis, left Post-op diagnosis: same as pre-op Procedure: Procedure: Left block of the nerve innervating the sacroiliac joint Medications: Bupivacaine 0.25% 2cc, kenalog 40mg After informed consent was obtained, the patient was brought to the medical procedure unit and placed in the prone position, when a timeout was completed verifying correct patient, procedure, site, positioning, implant, and/or special equipment.? The skin overlying the area was prepped and draped in standard sterile fashion using alcohol.? A 25-gauge needle was inserted towards the left nerve innervating the sacroiliac joint under direct fluoroscopic imaging.? Needle tip was advanced until the nerve was encountered.? We instilled a total of 3 mL of solution.? Postoperatively needles were removed.? The patient tolerated the procedure well without complication.? The patient reported reduction in pain symptoms postoperatively. Anesthesia: Local Surgeon: Yamile Lopez Pathology: none sent Condition: stable Disposition: no change
== END 2023-03-26 11:58 | disposition home or self-care (01) ==
PROVIDERS: PCP Family Medicine; Visit Provider Anesthesiology
DX: M46.1 Sacroiliitis, not elsewhere classified (principal)
CPT/HCPCS: 64451; 77002; Q9966

== ENCOUNTER 2023-04-04 09:15 | Outpatient (OUT) | payer OTHER, SELFPAY ==
--- NOTE | 2023-04-04 09:36 | P.CN_ITS ---
Consult Note: HPI Data of Consult Patient: known to practice within the last 3 years Requesting Physician: Josefina Graves NP Primary Care Provider: SANDY YOUSSEF Consult Narrative Reason for consult: f/u Narrative: Nesha Dallas a pleasant 52 year old female presents for evaluation of chronic back and SIJ pain. Pain 4-5/10 in left lower back and buttock. Patient had a left nerve block to the nerve innervating the SIJ end of february and had excellent response with 95% pain relief for days. Patient would like to discuss thermal RFA to the nerve innervating the SI joint. Patient experiencing dizziness and has been following with nephrology and PCP, patient thinks her gabapentin may be causing dizziness and would like to taper off this medication. cc:: CC: Josefina Graves NP Review of Systems ROS Status of ROS 10 or more systems reviewed and unremarkable except as noted in history and below Musculoskeletal Reports: back pain and joint pain PFSH PFSH Medical History Surgical History Social History Smoking status: Heavy tobacco smoker Gender Identity: female Meds Home Medications and Allergies Home Medications Medication Instructions Recorded Confirmed Type 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 1 tab PO QDAY 01/03/23 03/26/23 History amlodipine 10 mg tablet 10 mg PO DAILY 01/03/23 03/26/23 History aspirin 81 mg capsule 81 mg PO DAILY 01/03/23 03/26/23 History cyclobenzaprine 10 mg tablet 5 mg PO QPM 01/03/23 03/26/23 History diclofenac 50 mg tablet 100 ea topical QDAY 01/03/23 03/26/23 History del.rel-capsai 0.025%-m-salic 25%-ment 6% liqd duloxetine 60 mg capsule,delayed 90 mg PO DAILY 01/03/23 03/26/23 History release (Cymbalta) loratadine 10 mg tablet 10 mg PO DAILY 01/03/23 03/26/23 History (Allerclear) magnesium glycinate 400 mg PO QDAY 01/03/23 03/26/23 History olanzapine 5 mg tablet 7.5 mg PO QPM 01/03/23 03/26/23 History omega 9-krf-cra-fish oil 1,000 mg 1 cap PO DAILY 01/03/23 03/26/23 History (120 mg-180 mg) capsule (Fish Oil) omeprazole 20 mg capsule,delayed 20 mg PO DAILY 01/03/23 03/26/23 History release tramadol 50 mg tablet 50 mg PO DAILY PRN pain 01/03/23 03/26/23 History potassium chloride 10 mEq 10 meq PO DAILY 01/12/23 03/26/23 History tablet,extended release (K-Tab) Allergies Allergy/AdvReac Type Severity Reaction Status Date / Time hydromorphone [From Dilaudid] Allergy Mild Verified 02/05/23 06:58 Exam Constitutional Documenting provider has reviewed patient's vital signs: yes Common normals: no apparent distress, oriented x3, healthy appearing, alert and well nourished General appearance: cooperative HENMT Common normals: normocephalic, hearing grossly normal bilaterally and moist oral mucous membranes Head and scalp: normocephalic Eye Common normals: PERRL Pupil: PERRL Neck & C-Spine Common normals: full ROM General: normal visual inspection Chest Common normals: inspection of chest normal Respiratory Common normals: normal respiratory effort, no retractions and no use of accessory muscles Back & Pelvis Lumbar spine/lower back: ROM limited, pain with ROM and straight leg raise negative bilaterally Sacroiliac joints: SI joint(s) abnormal (left: pain with pressure over PSIS, Positive rose marie, thigh thrust, FABERS ) SI joint details: tender to palpation and pain elicited by compression of iliac crest maneuver Extremity Common normals: normal to inspection and full ROM Neuro Common normals: oriented x3, CN's II-XII intact bilaterally, moves all extremities, no focal motor deficits, no sensory deficits noted and deep tendon reflexes 2+ bilaterally Sensorium/orientation: alert Motor exam: strength 5/5 throughout and no movement abnormalities noted Psych Common normals: mental status grossly normal, thought process normal, coop erative, affect normal, speech normal and activity/motor behavior normal Speech: normal speech Thought process: normal thought process Results Additional Findings Additional findings: I have checked an OARRS report on this patient today and there are no aberrancie s noted in the prescribing history.?? A drug screen was completed and reviewed within the last year, and if there has not been a drug screen completed we ordered one today to monitor higher risk, state monitored pain medication use. As part of providing excellent, safe, comprehensive care, the following was completed at our patient's visit: 1. A medication reconciliation and review to ensure accurate knowledge of current/active medications, including asking our patients to inform us about any qwoq-qgk-tykevjj medications or herbal remedies/nutritional supplements/alternative remedies. 2. A review to specifically ensure our patients have had annual screening for: elevated body mass index (BMI), tobacco use, screening for depression, and screening for unhealthy alcohol use. When screening is concerning, patients are provided with education and the specific recommendation to discuss the concerning health issue and treatment options with their primary care provider. Assessment and Plan Assessment and Plan (1) Sacroiliitis: (2) Neuritis: (3) Chronic pain syndrome: (4) Muscle spasm: (5) Lumbar spondylosis: Plan RFA of left nerve innervating the SI joint under fluoroscopy change gabapentin to 300mg cap every other day at bedtime for two weeks then every third day HS for one week then can stop, if dizziness persists after stopping the medication and pain worsens we will restart the medication f/u 1 month to discuss medication adjustment and consider lyrica if needed
== END 2023-04-04 09:16 | disposition home or self-care (01) ==
LOC: PM 09:18
PROVIDERS: PCP Family Medicine; Visit Provider Nurse Practitioner
DX: M46.1 Sacroiliitis, not elsewhere classified (principal); G89.4 Chronic pain syndrome; M62.838 Other muscle spasm; M47.26 Other spondylosis with radiculopathy, lumbar region
CPT/HCPCS: G0463

== ENCOUNTER 2023-04-13 07:55 | Outpatient (OUT) | payer OTHER, SELFPAY ==
--- NOTE | 2023-04-13 08:02 | CT_ITS ---
[address] [address] Patient Name: DHARA BETTENCOURT MRN: [id number] date: 1970 Sex: F Assigned Patient Location: CT Current Patient Location: CT Accession/Order Number: [id number] Exam Date: 04/13/2023 08:05 Report Date: 04/13/2023 10:20 At the request of: MELISA BLANC Procedure: CT chest wo con EXAMINATION: CT chest wo con HISTORY: Nonspecific Abnormal Finding Lung Field R91.8 COMPARISON: 01/11/2023, 01/12/2023 TECHNIQUE: Multi-planar CT images were created with IV contrast. Axial, Coronal, and Sagittal images. Dose reduction techniques were achieved by using automated exposure control and/or adjustment of mA and/or kV according to patient size and/or use of iterative reconstruction technique. FINDINGS: LUNGS: Stable patchy and linear opacity in the anterior right upper lobe likely represents an area of atelectasis or scar. New area of patchy and linear opacity in the lingula, I favor atelectasis. A few scattered punctate pulmonary nodules are noted measuring up to 2 mm, nonspecific. PLEURA: No mass, effusion, or pneumothorax. VASCULATURE: No abnormality. FUNMI: No mass or adenopathy. MEDIASTINUM: No mass or adenopathy. CARDIAC: No enlargement, pericardial thickening, or significant calcification. AORTA: No aneurysm or dissection. CHEST WALL: No mass or axillary adenopathy. BONES: No bone lesion or fracture. LIMITED ABDOMEN: 4.5 cm soft tissue density lesion of the left kidney. Additional fluid density lesion in the cortex., Stable from prior ultrasound OTHER: Negative. CT/CT chest wo con IMPRESSION: Scattered infiltrates in the right upper lobe and lingula, atelectasis/scar is favored Electronically authenticated by: MELYSSA PITTS Date: 04/13/2023 10:20
[2023-04-13 09:00] VITALS: PULSE 76; RESP 18; O2SAT 95
[2023-04-13] MEDS: ALBUTEROL SULFATE 2.5 MG/3 ML VIAL NEB IH (09:00)
--- NOTE | 2023-04-13 09:17 | RT_ITS ---
[facility] Test Date: 2023-04-13 Pat Name: DHARA BETTENCOURT Department: Room: - Gender: Female Acquisition Marketing Coordinator: Joellen Eduardo RRT : 1970 Requested By: Anders Hickey Order Number: [id number] Reading MD: Anders Hickey Interpretive Statements Pulmonary function testing was completed according to ATS criteria. Findings were considered accurate and reproducible. Both pre- and post-bronchodilator values utilized for spirometry. No prior studies available for comparison. Spirometry (based on pre-bronchodilator values): -FEV1/FVC: Reduced @ 63% -FEV1: Moderately reduced @ 55%. -FVC: Reduced @ 68% -There is a positive bronchodilator response in FVC. Lung volumes by plethysmography (based on pre-bronchodilator values): -RV: Increased @ 269% -TLC: Increased @ 144% Diffusion capacity: -DLCO: Normal @ 83% when corrected for Hb 15.4g/dL Flow-volume loop: -Moderate obstructive pattern Flow-pressure loop: ???Asthmatic pattern Impressions: -Moderate obstructive pattern on spirometry with a positive bronchodilator response. Elevated RV and TLC suggest air trapping and hyperinflation respectively. Normal diffusion capacity. Overall study is more consistent with asthma compared to COPD/emphysema. Clinical correlation required. Electronically Signed On 04-16-2023 9:25:53 EDT by Anders Hickey
== END 2023-04-13 07:56 | disposition home or self-care (01) ==
LOC: CT 07:56
PROVIDERS: PCP Family Medicine; Visit Provider Internal Medicine
DX: R91.8 Other nonspecific abnormal finding of lung field (principal); J44.9 Chronic obstructive pulmonary disease, unspecified
CPT/HCPCS: 71250; 94060; 94640; 94726; 94729

== ENCOUNTER 2023-04-23 07:59 | Outpatient (OUT) | payer OTHER, SELFPAY ==
[2023-04-23 08:15] LABS: Basophils Absolute Auto 0.1 10^3/uL (0.0-0.1); Basophils Percent Auto 0.5 % (0.2-2.0); Eosinophils Absolute Auto 0.2 10^3/uL (0.0-0.7); Hematocrit 44.5 % (36.0-48.0); Hemoglobin 15.1 g/dL (12.0-16.0); Immature Granulocytes Abs Auto 0.05 10^3/uL (0.00-0.03); Immature Granulocytes Pct Auto 0.3 % (0.0-0.5); Lymphocytes Absolute Auto 4.6 10^3/uL (1.2-3.8); Lymphocytes Percent Auto 31.6 % (20.5-60.0); Mean Corpuscular HGB Conc 33.9 g/dL (29.9-35.2); Mean Corpuscular Hemoglobin 32.8 pg (26.7-34.0); Mean Corpuscular Volume 96.7 fL (81.0-99.0); Monocytes Absolute Auto 0.8 10^3/uL (0.3-0.8); Monocytes Percent Auto 5.3 % (1.7-12.0); Neutrophils Absolute Auto 8.9 10^3/uL (1.4-6.5); Neutrophils Percent Auto 61.3 % (43.0-75.0); Platelet Count 329 10^3/uL (150-450); Red Cell Distribution Width 13.9 % (11.0-15.0); White Blood Count 14.5 10^3/uL (4.0-11.0)
[2023-04-27 08:12] LABS: Immunoglobulin E, Total 66 IU/mL (6-495)
== END 2023-04-23 08:00 | disposition home or self-care (01) ==
LOC: LAB 08:00
PROVIDERS: PCP Family Medicine; Visit Provider Internal Medicine
DX: J45.40 Moderate persistent asthma, uncomplicated (principal)
CPT/HCPCS: 36415; 82785; 85025

== ENCOUNTER 2024-01-17 01:52 | Emergency (ER) | payer OTHER, SELFPAY ==
[2024-01-17 01:59] VITALS: BP 155/82; PULSE 101; TEMP 37.3; O2SAT 96; BMI 36.1
--- NOTE | 2024-01-17 02:04 | ED.FEMALEGU1 ---
HPI - Female Genitourinary General Chief complaint: Urogenital-Female Stated complaint: POSS BLOOD IN URINE Time Seen by Provider: 01/17/24 01:57 Source: patient Mode of arrival: walk-in Limitations: no limitations History of Present Illness HPI Narrative: This 53-year-old female presents for evaluation of urinary frequency, urgency, dysuria, gross hematuria and pain in the left lower quadrant going into her left groin. The patient is status post hysterectomy. She is not sexually active. She states that she started having urinary frequency and urgency yesterday. She drink plenty of fluids but started having hematuria earlier this evening. She then started developing some pain in her left lower inguinal area. She denies any tico flank pain. She is not having any nausea or vomiting. She denies any fever or chills. She denies any chest pain or shortness of breath. She is a smoker but denies that she feels shortness of breath. 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 1 tab PO QDAY 01/03/23 01/17/24 amlodipine 10 mg tablet 10 mg PO DAILY 01/03/23 01/17/24 aspirin 81 mg capsule 81 mg PO DAILY 01/03/23 01/17/24 cyclobenzaprine 10 mg tablet 5 mg PO QPM 01/03/23 01/17/24 diclofenac 50 mg tablet 100 ea topical QDAY 01/03/23 01/17/24 del.rel-capsai 0.025%-m-salic 25%-ment 6% liqd duloxetine 60 mg capsule,delayed 90 mg PO DAILY 01/03/23 01/17/24 release (Cymbalta) loratadine 10 mg tablet 10 mg PO DAILY 01/03/23 01/17/24 (Allerclear) magnesium glycinate 400 mg PO QDAY 01/03/23 03/26/23 olanzapine 5 mg tablet 7.5 mg PO QPM 01/03/23 01/17/24 omega 7-tsh-zrf-fish oil 1,000 mg 1 cap PO DAILY 01/03/23 01/17/24 (120 mg-180 mg) capsule (Fish Oil) omeprazole 20 mg capsule,delayed 20 mg PO DAILY 01/03/23 01/17/24 release tramadol 50 mg tablet 50 mg PO DAILY PRN pain 01/03/23 01/17/24 potassium chloride 10 mEq 10 meq PO DAILY 01/12/23 01/17/24 tablet,extended release (K-Tab) Allergies Allergy/AdvReac Type Severity Reaction Status Date / Time hydromorphone [From Dilaudid] Allergy Mild Verified 01/17/24 02:04 Review of Systems ROS Status of ROS 10 or more systems reviewed and unremarkable except as noted in history and below [facility] Medical History Surgical History Social History Smoking status: Heavy tobacco smoker Gender Identity: female Exam Narrative Exam Narrative: Vital signs and Nursing Notes reviewed: Patient is afebrile, she is mildly tachycardic with a pulse of 101 and blood pressure is elevated at 155/82, she is not hypoxic with pulse ox of 96% on room air General: Awake, alert, oriented, mildly uncomfortable appearing overweight female, no respiratory distress HEENT: Normocephalic atraumatic, mucous membranes are moist and pink, eyes are clear, normal conjunctiva, vision is grossly intact Chest: Bilateral expiratory wheezing, there is no rhonchi or rales appreciated, patient is speaking in complete sentences and pulse ox is normal at 96% on room air CVS: Regular rate and rhythm S1-S2 at 96 on exam, no murmurs rubs or gallops, pulses are brisk and equal bilaterally ABD: Obese, soft, nondistended, mild tenderness in the right lower quadrant and right inguinal area, no tico CVA tenderness Extremities: Moving all extremities, no lower extremity tenderness or swelling noted, negative Homans' sign, pulses are brisk and equal bilaterally Skin: Normal in appearance without rash,pallor, petechiae or purpura Neuro: No focal deficits Constitutional Vital Signs, click to edit/add: Last Vital Signs Temp 99.1 F 01/17/24 01:59 Pulse 101 H 01/17/24 01:59 Resp 18 01/17/24 01:59 BP 155/82 H 01/17/24 01:59 Pulse Ox 96 01/17/24 01:59 O2 Del Method Room Air 01/17/24 01:59 Course Vital Signs Vital signs: Vital Signs Temperature 99.1 F 01/17/24 01:59 Pulse Rate 101 H 01/17/24 01:59 Respiratory Rate 18 01/17/24 01:59 Blood Pressure 155/82 H 01/17/24 01:59 Pulse Oximetry 96 01/17/24 01:59 Oxygen Delivery Method Room Air 01/17/24 01:59 Temperature 99.1 F 01/17/24 01:59 Pulse Rate 101 H 01/17/24 01:59 Respiratory Rate 18 01/17/24 01:59 Blood Pressure 155/82 H 01/17/24 01:59 Pulse Oximetry 96 01/17/24 01:59 Oxygen Delivery Method Room Air 01/17/24 01:59 MDM - Female Genitourinary MDM Narrative Medical decision making narrative: This 53-year-old female presents for evaluation of left inguinal area pain with hematuria. Her symptoms started earlier in the day with urinary frequency and urgency and then she developed gross hematuria. She has not had a fever or chills. She had some mild nausea and pain in the left inguinal area. She does not have a history of kidney stones. She has seen a patient representative in the past she states because of something that was found on her kidney. She does not recall exactly what that was. Her vital signs were stable. She did have expiratory wheezing and is a smoker. She declined the need for a breathing treatment. An IV was placed and she was medicated with IV fluids, Zofran and Toradol and oral Pyridium. Routine labs are reviewed. Her white count is mildly elevated 11.5. Hemoglobin is stable at 13.9. BUN is normal and creatinine is mildly elevated at 1.23. Lactic acid was elevated at 3.4. Urine was grossly contaminated with blood and does show bacteria. CT scan of the abdomen pelvis which is included in the body of this report shows a 4 mm stone in her bladder which may be the etiology of the symptoms she was having earlier in the day. Also shows an 8 mm renal stone in the right kidney and 2 lesions in the left kidney, one of them is 5.2 mm exophytic lesion and 1 is a 2.[address] scan also shows chronic changes of the femoral heads and hepatomegaly. The results of the labs and CT scan were discussed with the patient. I explained to her that she will need outpatient follow-up as soon as possible and will need an additional CT scan or MRI to further evaluate the lesions on the left kidney. She verbalizes understanding of this and will follow-up closely with her family physician. She will also be referred to Dr. Wagner, urology on-call at this time. She is feeling better after her treatment emergency department and will be discharged home with prescription for Zofran, Keflex, [place] and Pyridium. She is not ill-appearing, septic or toxic. She was encouraged to return the emergency department for fevers, worsening pain or any concerns. She is in agreement with this plan. Medical Records Medical records narrative: The [address] [address] [address] Scan Report Signed Patient: DHARA BETTENCOURT MR#: [id number] : 1970 Acct:[id number] Age/Sex: 53 / F ADM Date: 01/17/24 Loc: ER Attending Dr: Ordering Physician: Brinda Shah Date of Service: 01/17/24 Procedure(s): CT abdomen pelvis wo con Accession Number(s): [id number] cc: SANDY YOUSSEF ~ The [address] [address] Patient Name: DHARA BETTENCOURT MRN: [id number] date: 1970 Sex: F Assigned Patient Location: ER Current Patient Location: ER Accession/Order Number: [id number] Exam Date: 01/17/2024 02:35 Report Date: 01/17/2024 03:36 At the request of: BRINDA SHAH Procedure: CT abdomen pelvis wo con EXAM: CT abdomen pelvis wo con HISTORY: llq abd/flank pain, hematuria COMPARISON: CT chest 04/13/2023 TECHNIQUE: CT of abdomen and pelvis without intravenous contrast. Oral contrast was administered. Dose reduction techniques were achieved by using automated exposure control and/or adjustment of mA and/or kV according to patient size and/or use of iterative reconstruction technique. FINDINGS: TUBES AND IMPLANTS: None. LOWER CHEST: Unremarkable ABDOMEN and PELVIS ABDOMINAL WALL AND SOFT TISSUES: Unremarkable. BONES: Serpiginous subchondral sclerosis involving both femoral heads, without articular collapse. Multilevel degenerative changes of the spine. ARTERIES: Incompletely evaluated. Mild aortoiliac calcification without aneurysm. VEINS: Incompletely evaluated LYMPH NODES: Unremarkable. PERITONEUM/ RETROPERITONEUM: Unremarkable BOWEL: No obstruction. Moderate diverticulosis APPENDIX: Not identified. LIVER: Enlarged measuring 19.9 centimeters with steatosis. A 1.5 centimeter hypodensity seen in the caudate lobe is suggestive of a cyst. GALLBLADDER: Surgically absent BILE DUCTS: Not dilated SPLEEN: Unremarkable. PANCREAS: Unremarkable. ADRENALS: Unremarkable. KIDNEYS/ URETERS: Nonobstructing right renal calculus measuring 8 millimeters. Multiple bilateral renal cysts. A 1.7 centimeters hyperdense lesion in the left kidney is suggestive of a hemorrhagic cyst. There is a 5.2 centimeter exophytic lesion seen in the left kidney of intermediate density measuring 30 Hounsfield units. Additional left renal hypodense lesion measuring 2.3 centimeters with eccentric hyperdensity. REPRODUCTIVE ORGANS: The uterus is surgically absent. Bilateral ovaries are not clearly identified. URINARY BLADDER: A [address]/CT abdomen pelvis wo con IMPRESSION: 1. Nonobstructing right renal calculus measuring 8 millimeters. 2. A 4 millimeter bladder calculus. 3. A solid-appearing 5.2 centimeter left renal exophytic lesion. Additional left renal cystic lesion measuring 2.3 centimeters with eccentric hyperdensity which may represent mural nodularity. MR renal protocol or CT renal protocol is recommended for further evaluation due to concern for neoplastic process. 4. Hepatomegaly with steatosis. 5. 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 6. Moderate diverticulosis. Electronically authenticated by: RY GRAJEDA Date: 01/17/2024 03:36 Lab Data Labs: Lab Results 01/17/24 01/17/24 Range/Units 02:06 02:30 WBC 11.5 H (4.0-11.0) 10^3/uL RBC 4.50 (4.20-5.40) 10^6/uL Hgb 13.9 (12.0-16.0) g/dL Hct 41.4 (36.0-48.0) % MCV 92.0 (81.0-99.0) fL MCH 30.9 (26.7-34.0) pg MCHC 33.6 (29.9-35.2) g/dL RDW 13.6 (11.0-15.0) % Plt Count 282 (150-450) 10^3/uL MPV 9.6 (9.5-13.5) fL Neut % (Auto) 57.4 (43.0-75.0) % Lymph % (Auto) 34.3 (20.5-60.0) % Dixie % (Auto) 5.9 (1.7-12.0) % Eos % (Auto) 1.5 (0.9-7.0) % Baso % (Auto) 0.5 (0.2-2.0) % Neut # (Auto) 6.6 H (1.4-6.5) 10^3/uL Lymph # (Auto) 3.9 H (1.2-3.8) 10^3/uL Dixie # (Auto) 0.7 (0.3-0.8) 10^3/uL Eos # (Auto) 0.2 (0.0-0.7) 10^3/uL Baso # (Auto) 0.1 (0.0-0.1) 10^3/uL Abs Immat Gran (auto) 0.05 H (0.00-0.03) 10^3/uL Imm/Tot Granulo (auto) 0.4 (0.0-0.5) % Sodium 138 (136-145) mmol/L Potassium 3.3 L (3.5-5.1) mmol/L Chloride 103 (98-107) mmol/L Carbon Dioxide 25.7 (21.0-32.0) mmol/L Anion Gap 12.6 BUN 10.0 (7.0-18.0) mg/dL Creatinine 1.23 H (0.55-1.02) mg/dL Est GFR ( Amer) 55 L (>=60) Est GFR (Non-Af Amer) 46 L (>=60) BUN/Creatinine Ratio 8.1 Glucose 122 H (74-106) mg/dL Lactate 3.4 H* (0.4-2.0) mmol/L Calcium 10.0 (8.5-10.1) mg/dL Total Bilirubin 1.2 H (0.2-1.0) mg/dL AST 25 (15-37) U/L ALT 49 (14-59) U/L Alkaline Phosphatase 88 (46-116) U/L Total Protein 6.9 (6.4-8.2) g/dL Albumin 3.8 (3.4-5.0) g/dL Globulin 3.1 g/dL Albumin/Globulin Ratio 1.2 Urine Color Dk. red (YELLOW) Urine Clarity Clear (CLEAR) Urine pH Color interference A (5.0-9.0) Ur Specific [place] 1.015 (1.005-1.025) Urine Protein Color interference A (NEG/TRACE) mg/dL Urine Glucose (UA) Color interference A (NEGATIVE) mg/dL Urine Ketones Color interference A (NEGATIVE) mg/dL Urine Occult Blood Color interference A (NEGATIVE) Urine Nitrite Color interference A (NEGATIVE) Urine Bilirubin Color interference A (NEGATIVE) Urine Urobilinogen Color interference A (0.2-1.0) EU/dL Ur Leukocyte Esterase Color interference A (NEGATIVE) Urine RBC >100 A (0-2) #/HPF Urine WBC None seen (NONE SEEN) #/HPF Ur Squamous Epith Cells Few A (NONE/RARE) #/LPF Ur Transition Epith Cell Rare A (NONE SEEN) #/LPF Urine Crystals None seen (None Seen) #/HPF Urine Bacteria Large A (NONE SEEN) #/HPF Urine Casts None seen (NONE SEEN) #/LPF Urine Mucus None seen (NONE SEEN) Ur Culture Indicated? Yes Discharge Plan Discharge Stand Alone Forms: Portal Instructions Chief Complaint: Urogenital-Female Clinical Impression: Hematuria, Kidney calculus, Mass of kidney of unknown nature Patient Disposition: Home, Self-Care Time of Disposition Decision: 04:22 Condition: Good Prescriptions / Home Meds: No Action potassium chloride [K-Tab] 10 mEq tablet extended release 10 meq PO DAILY aspirin 81 mg capsule 81 mg PO DAILY 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 1 tab PO QDAY loratadine [Allerclear] 10 mg tablet 10 mg PO DAILY cyclobenzaprine 10 mg tablet 5 mg PO QPM duloxetine [Cymbalta] 60 mg capsule,delayed release(DR/EC) 90 mg PO DAILY diclofen era-jlccnf-m-karla-ment 50 mg-0.025 %- 25 %-6 % kit, liquid and tablet del rel 100 ea topical QDAY omega 7-oga-pdk-fish oil [Fish Oil] 1,000 mg (120 mg-180 mg) capsule 1 cap PO DAILY magnesium glycinate 100 mg magnesium capsule 400 mg PO QDAY olanzapine 5 mg tablet 7.5 mg PO QPM amlodipine 10 mg tablet 10 mg PO DAILY omeprazole 20 mg capsule,delayed release(DR/EC) 20 mg PO DAILY tramadol 50 mg tablet 50 mg PO DAILY PRN (Reason: pain) Print Language: French Instructions: Kidney Stones (ED), Hematuria (ED), How to Strain Your Urine (ED) Additional Instructions: Follow-up as soon as possible with your family physician and Dr. Wagner for more thorough evaluation of the abnormal findings on your CT scan. Drink plenty of fluids. Use antibiotics as prescribed. Use pain medication and nausea medication as needed. Return to the emergency department for worsening pain, inability to tolerate your medications or any concerns. Referrals: Obinna Wagner MD [Physician] - As soon as possible SANDY YOUSSEF [Primary Care Provider] - 1 week
--- NOTE | 2024-01-17 02:16 | CT_ITS ---
[address] [address] Patient Name: DHARA BETTENCOURT MRN: [id number] date: 1970 Sex: F Assigned Patient Location: ER Current Patient Location: ER Accession/Order Number: [id number] Exam Date: 01/17/2024 02:35 Report Date: 01/17/2024 03:36 At the request of: MARILEE MARKER Procedure: CT abdomen pelvis wo con EXAM: CT abdomen pelvis wo con HISTORY: llq abd/flank pain, hematuria COMPARISON: CT chest 04/13/2023 TECHNIQUE: CT of abdomen and pelvis without intravenous contrast. Oral contrast was administered. Dose reduction techniques were achieved by using automated exposure control and/or adjustment of mA and/or kV according to patient size and/or use of iterative reconstruction technique. FINDINGS: TUBES AND IMPLANTS: None. LOWER CHEST: Unremarkable ABDOMEN and PELVIS ABDOMINAL WALL AND SOFT TISSUES: Unremarkable. BONES: Serpiginous subchondral sclerosis involving both femoral heads, without articular collapse. Multilevel degenerative changes of the spine. ARTERIES: Incompletely evaluated. Mild aortoiliac calcification without aneurysm. VEINS: Incompletely evaluated LYMPH NODES: Unremarkable. PERITONEUM/ RETROPERITONEUM: Unremarkable BOWEL: No obstruction. Moderate diverticulosis APPENDIX: Not identified. LIVER: Enlarged measuring 19.9 centimeters with steatosis. A 1.5 centimeter hypodensity seen in the caudate lobe is suggestive of a cyst. GALLBLADDER: Surgically absent BILE DUCTS: Not dilated SPLEEN: Unremarkable. PANCREAS: Unremarkable. ADRENALS: Unremarkable. KIDNEYS/ URETERS: Nonobstructing right renal calculus measuring 8 millimeters. Multiple bilateral renal cysts. A 1.7 centimeters hyperdense lesion in the left kidney is suggestive of a hemorrhagic cyst. There is a 5.2 centimeter exophytic lesion seen in the left kidney of intermediate density measuring 30 Hounsfield units. Additional left renal hypodense lesion measuring 2.3 centimeters with eccentric hyperdensity. REPRODUCTIVE ORGANS: The uterus is surgically absent. Bilateral ovaries are not clearly identified. URINARY BLADDER: A [address]/CT abdomen pelvis wo con IMPRESSION: 1. Nonobstructing right renal calculus measuring 8 millimeters. 2. A 4 millimeter bladder calculus. 3. A solid-appearing 5.2 centimeter left renal exophytic lesion. Additional left renal cystic lesion measuring 2.3 centimeters with eccentric hyperdensity which may represent mural nodularity. MR renal protocol or CT renal protocol is recommended for further evaluation due to concern for neoplastic process. 4. Hepatomegaly with steatosis. 5. 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 6. Moderate diverticulosis. Electronically authenticated by: RY GRAJEDA Date: 01/17/2024 03:36
[2024-01-17 02:25] LABS: Clarity Urine CLEAR (CLEAR); Color Urine DK. RED (YELLOW); Specific Gravity Urine 1.015 (1.005-1.025)
[2024-01-17 02:26] LABS: Bilirubin Urine COLOR INTERFERENCE (NEGATIVE); Blood Urine COLOR INTERFERENCE (NEGATIVE); Glucose Urine UA COLOR INTERFERENCE mg/dL (NEGATIVE); Ketones Urine COLOR INTERFERENCE mg/dL (NEGATIVE); Leukocyte Esterase Urine COLOR INTERFERENCE (NEGATIVE); Nitrite Urine COLOR INTERFERENCE (NEGATIVE); Protein Urine COLOR INTERFERENCE mg/dL (NEG/TRACE); Urobilinogen Urine COLOR INTERFERENCE EU/dL (0.2-1.0); pH Urine COLOR INTERFERENCE (5.0-9.0)
[2024-01-17 02:29] LABS: Bacteria Urine LARGE #/HPF (NONE SEEN); RBC Urine >100 #/HPF (0-2); WBC Urine NONE SEEN #/HPF (NONE SEEN)
[2024-01-17 02:30] LABS: Cast Seen? NONE SEEN #/LPF (NONE SEEN); Crystals Seen? None Seen #/HPF (None Seen); Mucus Urine NONE SEEN (NONE SEEN); Squamous Epithelial Cell Urine FEW #/LPF (NONE/RARE); Transitional Epi Cells Urine RARE #/LPF (NONE SEEN); Urine Culture Indicated YES
[2024-01-17 02:36] LABS: Basophils Absolute Auto 0.1 10^3/uL (0.0-0.1); Basophils Percent Auto 0.5 % (0.2-2.0); Eosinophils Absolute Auto 0.2 10^3/uL (0.0-0.7); Eosinophils Percent Auto 1.5 % (0.9-7.0); Hematocrit 41.4 % (36.0-48.0); Hemoglobin 13.9 g/dL (12.0-16.0); Immature Granulocytes Abs Auto 0.05 10^3/uL (0.00-0.03); Immature Granulocytes Pct Auto 0.4 % (0.0-0.5); Lymphocytes Absolute Auto 3.9 10^3/uL (1.2-3.8); Lymphocytes Percent Auto 34.3 % (20.5-60.0); Mean Corpuscular HGB Conc 33.6 g/dL (29.9-35.2); Mean Corpuscular Hemoglobin 30.9 pg (26.7-34.0); Mean Platelet Volume 9.6 fL (9.5-13.5); Monocytes Absolute Auto 0.7 10^3/uL (0.3-0.8); Monocytes Percent Auto 5.9 % (1.7-12.0); Neutrophils Absolute Auto 6.6 10^3/uL (1.4-6.5); Neutrophils Percent Auto 57.4 % (43.0-75.0); Platelet Count 282 10^3/uL (150-450); Red Cell Distribution Width 13.6 % (11.0-15.0); White Blood Count 11.5 10^3/uL (4.0-11.0)
[2024-01-17] MEDS: PHENAZOPYRIDINE 100 MG TABLET 200 MG PO (02:39)
[2024-01-17] MEDS: ONDANSETRON PF 4 MG/2 ML VIAL IV (02:40)
[2024-01-17] MEDS: KETOROLAC TROMETHAMINE 30 MG/ML VIAL IVP (02:40)
[2024-01-17] MEDS: CEFTRIAXONE 1,000 MG in 0.9 % SODIUM CHLORIDE 50 ML 100 MG IV (02:40)
[2024-01-17] MEDS: 0.9 % SODIUM CHLORIDE 1,000 ML 1000 ML IV (02:41)
[2024-01-17 02:53] LABS: Alanine Aminotransferase 49 U/L (14-59); Albumin Globulin Ratio 1.2; Albumin Level 3.8 g/dL (3.4-5.0); Alkaline Phosphatase 88 U/L (46-116); Anion Gap 12.6; Aspartate Amino Transferase 25 U/L (15-37); BUN Creatinine Ratio 8.1; Bilirubin Total 1.2 mg/dL (0.2-1.0); Carbon Dioxide 25.7 mmol/L (21.0-32.0); Chloride 103 mmol/L (98-107); Estimated GFR (African America 55 (>=60); Estimated GFR (Non-African Ame 46 (>=60); Globulin 3.1 g/dL; Glucose 122 mg/dL (74-106); Potassium 3.3 mmol/L (3.5-5.1); Sodium 138 mmol/L (136-145); Total Protein 6.9 g/dL (6.4-8.2)
[2024-01-17 02:59] LABS: Lactate/Lactic Acid 3.4 mmol/L (0.4-2.0)
== END 2024-01-17 04:36 | disposition home or self-care (01) ==
PROVIDERS: Emergency Provider Emergency Medicine; PCP Family Medicine
DX: N20.0 Calculus of kidney (principal); R31.9 Hematuria, unspecified; N28.89 Other specified disorders of kidney and ureter; Z90.710 Acquired absence of both cervix and uterus; F17.200 Nicotine dependence, unspecified, uncomplicated
CPT/HCPCS: 36415; 74176; 80053; 81001; 83605; 85025; 87086; 96365; 96375; 99284; J0696; J1885; J2405

== ENCOUNTER 2024-04-18 07:22 | Outpatient (OUT) | payer OTHER, SELFPAY ==
--- OUTSIDE RECORDS SUMMARY | 2024-04-18 07:25 | XMS_ITS | CCD ---
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 Role Phone WATTS ., DR AMELIA Pool Attending Unavailable WATTS ., DR AMELIA Pool Admitting Unavailable MIKAEL, DR DELGADO Primary Care Unavailable WATTS ., DR AMELIA Pool Consulting Unavailable WATTS ., DR AMELIA Pool Consulting Unavailable WATTS ., DR AMELIA Pool Attending Unavailable WATTS ., DR AMELIA Pool Admitting Unavailable MIKAEL, DR DELGADO Primary Care Unavailable KEVEN ESCOBEDO Consulting Unavailable MCGILL ., GRANT Consulting Unavailable WATTS ., DR AMELIA Pool Attending Unavailable WATTS ., DR AMELIA Pool Admitting Unavailable MIKAEL, DR DELGADO Primary Care Unavailable MCGILL ., GRANT Consulting Unavailable WATTS ., DR AMELIA Pool Attending Unavailable WATTS ., DR AMELIA Pool Admitting Unavailable MIKAEL, DR DELGADO Primary Care Unavailable MCGILL ., GRANT Consulting Unavailable WATTS ., DR AMELIA Pool Attending Unavailable WATTS ., DR AMELIA Pool Admitting Unavailable MIKAEL, DR DELGADO Primary Care Unavailable MIKAEL, DR DELGADO Primary Care Unavailable WATTS ., DR AMELIA Pool Consulting Unavailable WATTS ., DR AMELIA Pool Attending Unavailable WATTS ., DR AMELIA Pool Admitting Unavailable LAKSHMIPATHY ., NARENDRANATH Attending Doretha vailable HALKER .DEYA Consulting Unavailable LAKSHMIPATHY ., NARJULIAATH Admitting Doretha vailable MIKAEL, DR DELGADO Primary Care Unavailable WATTS ., DR AMELIA Pool Attending Unavailable WATTS ., DR AMELIA Pool Admitting Unavailable MCGILL ., GRANT Consulting Unavailable MIKAEL, DR DELGADO Primary Care Unavailable CANDICE VALENCIA Consulting Unavailable CANDICE VALENCIA Attending Unavailable MIKAEL, DR DELGADO Primary Care Unavailable ANNIE, CANDICE Admitting Unavailable MIKAEL, DR DELGADO Primary Care Unavailable LILIA, MARNIE Consulting Unavailable LILIA, MARNIE Attending Unavailable LILIA, MARNIE Admitting Unavailable WATTS ., DR AMELIA Pool Attending Unavailable WATTS ., DR AMELIA Pool Admitting Unavailable MIKAEL, DR DELGADO Primary Care Unavailable MAC ., DR AMELIA Pool Consulting Unavailable SHAUN ., DEYA Attending Unavailable MIKAEL, DR DELGADO Primary Care Unavailable HALKIA ., DEYA Admitting Unavailable ZIEBER, DR BRANDON Underwood Consulting Unavailable HALKIA ., DEYA Consulting Unavailable MIKAEL, DR DELGADO Referring Unavailable MIKAEL, DR DELGADO Primary Care Unavailable ATNHONY, DR BRANDON Underwood Consulting Unavailable HEMMER, ZEFERINO M Attending Unavailable HEMMER, ZEFERINO M Admitting Unavailable HEMMER, ZEFERINO M Consulting Unavailable WATTS ., DR AMELIA Pool Attending Unavailable WATTS ., DR AMELIA Pool Admitting Unavailable WATTS ., DR AMELIA Pool Consulting Unavailable MIKAEL, DR DELGADO Primary Care Unavailable KEVEN ESCOBEDO Consulting Unavailable Gieditis , Yamile Sandoval Attending Unavailable Giedraitis , Yamile Sandoval Attending Unavailable Gieditis , Yamile Sandoval Attending Unavailable Gieditis , Yamile Sandoval Attending Unavailable MIKAEL, JOSEY Hernandez Attending Unavailable MIKAELJOSEY Attending Unavailable Allergies Allergy Classification Reported Allergen(s) Allergy Type Date of Onset Reaction(s) Facility (1 source) HYDROmorphone Drug Allergy 03-04-2013 [facility] Repository Medications Current Medications Medication Drug Class(es) Dates Sig (Normalized) Sig (Original) amLODIPine 10 mg oral tablet (1 source) Dihydropyridine Calcium Channel Reyes Start: 03-22-2024 take 10 mg by mouth once daily Amlodipine Active 10 MG PO Daily March 22, 2024 12:00am atorvastatin 40 mg oral tablet (1 source) HMG-CoA Reductase Inhibitor Start: 03-22-2024 take 40 mg by mouth once daily Atorvastatin Active 40 MG PO Daily March 22, 2024 12:00am cyclobenzaprine hydrochloride 5 mg oral tablet (1 source) Muscle Relaxant Start: 03-22-2024 take 5 mg by mouth once daily at bedtime Cyclobenzaprine Active 5 MG PO Daily at bedtime March 22, 2024 12:00am 24 hr diclofenac sodium 100 mg extended release oral tablet (2 sources) Nonsteroidal Anti-inflammatory Drug Start: 03-22-2024 take 100 mg by mouth once daily Diclofenac Sodium Active 100 MG PO Daily March 22, 2024 9:35am Start: 03-22-2024 End: 03-22-2024 Diclofenac Sodium Discontinu ed MG PO March 22, 2024 12:00am March 22, 2024 9:35am DULoxetine 60 mg delayed release oral capsule (2 sources) Serotonin and Norepinephrine Reuptake Inhibitor Start: 03-22-2024 take 30 mg by mouth once daily Duloxetine Active 30 MG PO Daily March 22, 2024 12:00am in addition to 60mg Start: 03-22-2024 take 60 mg by mouth once daily Duloxetine Active 60 MG PO Daily March 22, 2024 12:00am in addition to 30mg furosemide 20 mg oral tablet (1 source) Loop Diuretic Start: 03-22-2024 take 20 mg by mouth once daily Furosemide Active 20 MG PO Daily March 22, 2024 12:00am metFORMIN hydrochloride 500 mg oral tablet (1 source) Biguanide Start: 03-22-2024 take 500 mg by mouth once daily Metformin Active 500 MG PO Daily March 22, 2024 12:00am ofloxacin 3 mg/ml ophthalmic solution (1 source) Quinolone Antimicrobial Start: 03-22-2024 take 1 drop(s) into the eye(s) four times daily Ofloxacin Active 2 DROPS OPHTHALMIC Four times daily 5 7 March 22, 2024 12:00am right eye OLANZapine 10 mg oral tablet (1 source) Atypical Antipsychotic Start: 03-22-2024 take 10 mg by mouth once daily Olanzapine Active 10 MG PO Daily March 22, 2024 12:00am rimegepant 75 mg disintegrating oral tablet (1 source) Start: 03-22-2024 Rimegepant (Nurtec Odt) 75 mg tablet,disintegr ating Active 75 MG PO As Directed March 22, 2024 12:00am Semaglutide (1 source) Start: 03-22-2024 inject 1 mg by subcutaneous injection every week Semaglutide (Ozempic) 1 mg/dose (4 mg/3 mL) pen injector Active 1 MG SUBCUT every week March 22, 2024 12:00am Problems Active Problems Problem Classification Problem Date Documented Da te Episodic/Chronic Diabetes mellitus without complication (1 source) Prediabetes; Translations: [Prediabetes] 03-22-2024 Episodic Disorders of lipid metabolism (1 source) Hyperlipidemia; Translations: [Hyperlipidemia, unspecified] 03-22-2024 Chronic Essential hypertension (1 source) Hypertensive disorder; Translations: [Essential (primary) hypertension] 03-22-2024 Chronic Mood disorders (1 source) Depressive disorder; Translations: [Depression] 03-22-2024 Chronic Other nervous system disorders (1 source) Other chronic pain; Translations: [OTHER CHRONIC PAIN] Onset: 05-17-2022 Chronic Spondylosis; intervertebral disc disorders; other back problems (15 sources) Spondylosis without myelopathy or radiculopathy, lumbar region; Translations: [Sacroiliitis, not elsewhere classified] Onset: 04-06-2022 Chronic Substance-related disorders (1 source) Nicotine dependence, cigarettes, uncomplicated; Translations: [NICOTINE DEPEND CIGARETTES UNCOMP] Onset: 05-17-2022 Chronic Unclassified (1 source) CONTACT W/AND (SUSP) EXPOS COVID-19; Translations: [CONTACT W/AND (SUSP) EXPOS COVID-19] Onset: 09-11-2022 Unclassified (1 source) ACUTE COUGH; Translations: [ACUTE COUGH] Onset: 09-11-2022 Unclassified (3 sources) LOW BACK PAIN, UNSPECIFIED; Translations: [LOW BACK PAIN, UNSPECIFIED] Onset: 03-09-2022 Past or Other Problems Problem Classification Problem Date Documented Da te Episodic/Chronic Other aftercare (1 source) 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; Translations: [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] Onset: 05-17-2022 Episodic Other connective tissue disease (5 sources) Other muscle spasm; Translations: [OTHER MUSCLE SPASM] Onset: 06-01-2022 Episodic Other lower respiratory disease (1 source) Wheezing; Translations: [WHEEZING] Onset: 09-11-2022 Episodic Residual codes; unclassified (4 sources) Pain, unspecified; Translations: [PAIN UNSPECIFIED] Onset: 09-07-2022 Episodic Residual codes; unclassified (1 source) Acquired absence of other specified parts of digestive tract; Translations: [ACQ ABSENCE OTH PART DIGESTV TRACT] Onset: 05-17-2022 Episodic Residual codes; unclassified (1 source) Acquired absence of both cervix and uterus; Translations: [ACQUIRED ABSENCE BOTH CERVIX AND UTERUS] Onset: 05-17-2022 Episodic Residual codes; unclassified (1 source) Acquired absence of ovaries, unilateral; Translations: [ACQUIRED ABSENCE OVARIES UNILATERAL] Onset: 05-17-2022 Episodic Spondylosis; intervertebral disc disorders; other back problems (2 sources) Lumbago with sciatica, left side; Translations: [Intervertebral disc disorders with radiculopathy, lumbar region] Onset: 04-13-2022 Episodic Unclassified (1 source) LOW BACK PAIN, UNSPECIFIED; Translations: [LOW BACK PAIN, UNSPECIFIED] Onset: 05-16-2022 Results Test Name Value Interpretation Reference Range Facility CREATININEon 12-27-2022 Creatinine [Mass/Vol] 1.03 mg/dL Critically high 0.55-1.02 [facility] Comment on above: Performed By: #### C FLAKITO #### [facility] [address] [address] [address] Radha Galindo EGFR-AF GHANAIAN >60 Normal >=60 [facility] Comment on above: Performed By: #### C FLAKITO #### [facility] [address] [address] [address] Radha Galindo EGFR-NON AF GHANAIAN 56 mL/min/1.73m2 Critically low >=60 [facility] Comment on above: Performed By: #### C FLAKITO #### [facility] [address] [address] [address] Radha Galindo XR CHEST 2 Von 12-27-2022 XR CHEST 2 V EXAM: XR CHEST 2 V HISTORY: Pneumonia COMPARISON: None. TECHNIQUE: PA and lateral views of the chest. FINDINGS: The cardiomediastinal silhouette is normal. Airspace disease of the lingula. There is no pneumothorax. No pleural effusion is noted. The osseous structures are intact. IMPRESSION: Airspace disease of the lingula. Electronically authenticated by: AURORA HERNANDEZ Date: 2022-12-27 11:35 Normal [facility] MRI LSPINE WO CONon 12-16-19 MRI LSPINE WO CON EXAMINATION: MRI LSPINE WO CON HISTORY: Lumbar spondylosis ; chronic lumbar pain radiating into left hip and leg, left leg weakness COMPARISON: No relevant comparison available. TECHNIQUE: A variety of imaging planes and parameters were utilized for visualization of suspected pathology. FINDINGS: For the purposes of numbering, sagittal T2 image # 6 extends from the T11 vertebral body superiorly to the S2-S3 level inferiorly. PARASPINAL AREA: 1.6 cm complex cyst versus mass projecting posterior medial from mid body of left kidney. Multiple fluid-filled benign-appearing renal cysts bilaterally. BONES: No fracture, pars defect, or osseous lesion. CORD/CAUDA EQUINA: Normal caliber, contour, and signal intensity. DISC LEVELS: 12-L1: No significant disc/facet abnormality, spinal stenosis, or foraminal stenosis. L1-L2: No significant disc/facet abnormality, spinal stenosis, or foraminal stenosis. L2-L3: No significant disc/facet abnormality, spinal stenosis, or foraminal stenosis. L3-L4: Moderate left foramen narrowing secondary to minimal disc bulging and moderate left facet arthropathy. L4-L5: Moderate-marked left foramen narrowing. Moderate right foramen narrowing. No significant central canal narrowing. Mild diffuse disc bulging eccentric to the left; no significant disc height reduction. Moderate marked degenerative facet arthropathy and ligamentum flavum thickening. L5-S1: Moderate marked foramen narrowing bilaterally without significant central canal narrowing. Mild diffuse disc bulging without disc at reduction. Moderate right, marked left degenerative facet arthropathy. IMPRESSION: 1. Moderate-marked foramen narrowing L3-L4 through L5-S1 predominantly due to degenerative facet arthropathy, but mild disc bulging contributes as well. 2. Projecting from left kidney is a 1.6 cm complex cyst versus mass. Follow-up when able with CT abdomen without and with IV contrast. Ultrasound of kidneys could alternatively be performed. Electronically authenticated by: BRANDON CRUZ Date: 2022-12-15 12:14 Normal [facility] RESPIRATORY PANEL PLUSon Adenovirus Not detected Normal NOT DETECTED [facility] Comment on above: Performed By: #### R SPLUS ####[facility] [address] [id number] Corona. Parapertusis Not detected Normal NOT DETECTED [facility] [place] Comment on above: Performed By: #### R SPLUS ####[facility] [address] [id number] Corona. Pertussis Not detected Normal NOT DETECTED [facility] Comment on above: Performed By: #### R SPLUS ####[facility] [address] [address]Dr. Yiricky Galindo Chlamydia Pneumoniae Not detected Normal NOT DETECTED [facility] Comment on above: Performed By: #### R SPLUS ####[facility] [address] [place], [place] [address]Dr. Yiricky Galindo Coronavirus 229E Not detected Normal NOT DETECTED [facility] Comment on above: Performed By: #### R SPLUS ####[facility] [address] [place], [place] [address]Dr. Yiricky Galindo Coronavirus HKU1 Not detected Normal NOT DETECTED [facility] Comment on above: Performed By: #### R SPLUS ####[facility] [address] [place], [place] [address]Dr. Yiricky Galindo Coronavirus NL63 Not detected Normal NOT DETECTED [facility] Comment on above: Performed By: #### R SPLUS ####[facility] [address] [place], [place] [address]Dr. Yiricky Galindo Coronavirus OC43 Not detected Normal NOT DETECTED [facility] Comment on above: Performed By: #### R SPLUS ####[facility] [address] [place], [place] [address]Dr. Yilan Galindo Influenza A H1 Not detected Normal NOT DETECTED [facility] Comment on above: Performed By: #### R SPLUS ####[facility] [address] [place], [place] [address]Dr. Yiricky Galindo Influenza A H1 2009 Not detected Normal NOT DETECTED [facility] Comment on above: Performed By: #### R SPLUS ####[facility] [address] [place], [place] [address]Dr. Yilan Galindo Influenza A H3 Not detected Normal NOT DETECTED [facility] Comment on above: Performed By: #### R SPLUS ####[facility] [address] [place], [place] [address]Dr. Yiricky Galindo Influenza B Not detected Normal NOT DETECTED [facility] Comment on above: Performed By: #### R SPLUS ####[facility] [address] [place], [place] [address]Dr. Radha Galindo Metapneumovirus Not detected Normal NOT DETECTED [facility] [place] Comment on above: Performed By: #### R SPLUS ####[facility] [address] [place], [place] [address]Dr. Radha Galindo Mycoplas. Pneumoniae Not detected Normal NOT DETECTED [facility] Comment on above: Performed By: #### R SPLUS ####[facility] [address] [place], [place] [address]Dr. Radha Galindo Parainfluenza 1 Not detected Normal NOT DETECTED [facility] [place] Comment on above: Performed By: #### R SPLUS ####[facility] [address] [place], [place] [address]Dr. Radha Galindo Parainfluenza 2 Not detected Normal NOT DETECTED [facility] [place] Comment on above: Performed By: #### R SPLUS ####[facility] [address] [place], [place] [address]Dr. Radha Galindo Parainfluenza 3 Not detected Normal NOT DETECTED [facility] [place] Comment on above: Performed By: #### R SPLUS ####[facility] [address] [place], [place] [address]Dr. Radha Galindo Parainfluenza 4 Not detected Normal NOT DETECTED [facility] [place] Comment on above: Performed By: #### R SPLUS ####[facility] [address] [place], [place] [address]Dr. Judyricky Galindo Rhino/Enterovirus Not detected Normal NOT DETECTED [facility] Comment on above: Performed By: #### R SPLUS ####[facility] [address] [place], [place] [address]Dr. Radha Galindo RP2 Header 1 RESPIRATORY PANEL: VIRUSES Normal [facility] Comment on above: Performed By: #### R SPLUS ####[facility] [address] [place], [place] [address]Dr. Radha Galindo RP2 Header 2 RESPIRATORY PANEL: BACTERIA Normal [facility] Comment on above: Performed By: #### R SPLUS ####[facility] [address] [place] [address]. Radha Galindo RSV Not detected Normal NOT DETECTED [facility] Comment on above: Performed By: #### R SPLUS ####[facility] [address] [address]Dr. Radha Galindo SARS-CoV-2 (COVID-19) RNA SUSAN+probe Ql (Unsp spec) Not detected Normal NOT DETECTED [facility] Comment on above: Performed By: #### R SPLUS ####[facility] [address] [address]Dr. Radha Galindo XR CHEST 2 Von 09-07-2022 XR CHEST 2 V EXAMINATION: XR CHES T 2 V HISTORY: Cough ; acute cough, wheezing COMPARISON: No relevant comparison available. FINDINGS: LUNGS: Small, subtle patchy opacity within lateral left upper lobe. VASCULATURE: No increased pulmonary vasculature. PLEURA: No pneumothorax, effusion, or pleural thickening. CARDIAC: No cardiomegaly or cardiac silhouette abnormality. MEDIASTINUM: No visible mass or adenopathy. BONES: No fracture or visible bone lesion. OTHER: Negative. IMPRESSION: 1. Trace amount of left upper lobe infiltrates versus atelectasis. Electronically authenticated by: BRANDON CRUZ Date: 2022-09-07 12:18 Normal [facility] CBC AUTO DIFFon 05-16-2022 BASO # 0.1 103/ul Normal 0.0-0.1 [facility] Comment on above: Performed By: #### C BC ####[facility] [address] [address]Dr. Radha Galindo Basophils/100 WBC (Bld) 0.6 % Normal 0.2-2.0 [facility] Comment on above: Performed By: #### C BC ####[facility] [address] [address]Dr. Radha Galindo EO # 0.2 103/ul Normal 0.0-0.7 [facility] Comment on above: Performed By: #### C BC ####[facility] [address] [address]Dr. Rdaha Galindo Eosinophils/100 WBC (Bld) 1.3 % Normal 0.9-7.0 [facility] Comment on above: Performed By: #### C BC ####[facility] [address] [address]Dr. Radha Galindo Erythrocyte distribution width (RBC) [Ratio] 14.6 % Normal 11.0-15.0 [facility] Comment on above: Performed By: #### C BC ####[facility] [address] [address]Dr. Radha Galindo Hematocrit (Bld) [Volume fraction] 45.1 % Normal 36.0-48.0 [facility] Comment on above: Performed By: #### C BC ####[facility] [address] [place], [place] [address]Dr. Radha Galindo Hemoglobin (Bld) [Mass/Vol] 14.9 g/dL Normal 12.0-16.0 [facility] Comment on above: Performed By: #### C BC ####[facility] [address] [place], [place] [address]Dr. Radha Galindo IG # 0.06 10e3/ul Critically high 0.00-0.03 [facility] Comment on above: Performed By: #### C BC ####[facility] [address] [place], [place] [address]Dr. Radha Galindo IG % 0.4 % Normal 0.0-0.5 [facility] Comment on above: Performed By: #### C BC ####[facility] [address] [place], [place] [address]Dr. Radha Galindo LYMPH # 3.7 103/ul Normal 1.2-3.8 [facility] Comment on above: Performed By: #### C BC ####[facility] [address] [place], [place] [address]Dr. Radha Galindo Lymphocytes/100 WBC (Bld) 27.7 % Normal 20.5-60.0 [facility] Comment on above: Performed By: #### C BC ####[facility] [address] [place], [place] [address]Dr. Radha Mateo MANUAL DIFF REQ NO Normal [facility] Comment on above: Performed By: #### C BC ####[facility] [address] [id number]. Radha Mateo MCH (RBC) [Entitic mass] 31.6 pg Normal 26.7-34.0 [facility] Comment on above: Performed By: #### C BC ####[facility] [address] [address]Dr. Judyricky Galindo MCHC (RBC) [Mass/Vol] 33.0 g/dL Normal 29.9-35.2 [facility] Comment on above: Performed By: #### C BC ####[facility] [address] [address]Dr. Radha Galindo MCV (RBC) [Entitic vol] 95.6 fL Normal 81.0-99.0 [facility] Comment on above: Performed By: #### C BC ####[facility] [address] [place], [place] [address]DrInna Galindo MONO # 0.7 103/ul Normal 0.3-0.8 [facility] Comment on above: Performed By: #### C BC ####[facility] [address] [place], [place] [address]Dr. Radha Galindo Monocytes/100 WBC (Bld) 5.3 % Normal 1.7-12.0 [facility] Comment on above: Performed By: #### C BC ####[facility] [address] [place], [place] [address]DrInna Galindo NEUT # 8.8 103/ul Critically high 1.4-6.5 [facility] Comment on above: Performed By: #### C BC ####[facility] [address] [place], [place] [address]DrInna Galindo Neutrophils/100 WBC (Bld) 64.7 % Normal 43.0-75.0 [facility] Comment on above: Performed By: #### C BC ####[facility] [address] [address]DrInna Galindo Platelet mean volume (Bld) [Entitic vol] 9.1 fL Critically low 9.5-13.5 [facility] Comment on above: Performed By: #### C BC ####[facility] [address] [id number] Galindo PLT 318 103/ul Normal 150-450 [facility] Comment on above: Performed By: #### C BC ####[facility] [address] [id number]. Radha Galindo RBC 4.72 106/ul Normal 4.20-5.40 [facility] Comment on above: Performed By: #### C BC ####[facility] [address] [id number]. Radha Galindo WBC 13.5 103/ul Critically high 4.0-11.0 [facility] Comment on above: Performed By: #### C BC ####[facility] [address] [address]Dr. Radha Galindo CRPon 05-16-2022 CRP 0.3 mg/dL Normal <=1.0 [facility] Comment on above: Performed By: #### B MP, CRP #### [facility] [address] [address] [address] Radha Galindo PROF CHEM 8 (BAS METB)on Anion gap [Moles/Vol] 13.7 mmol/L Normal [facility] Comment on above: Performed By: #### B MP, CRP #### [facility] [address] [address] [address] Radha Galindo Calcium [Mass/Vol] 9.5 mg/dL Normal 8.5-10.1 [facility] Comment on above: Performed By: #### B MP, CRP #### [facility] [address] [place] [address] Dr. Radha Galindo Chloride [Moles/Vol] 104 mmol/L Normal 98-107 [facility] Comment on above: Performed By: #### B MP, CRP #### [facility] [address] [place] [address] Dr. Radha Galindo CO2 [Moles/Vol] 27.0 mmol/L Normal 21.0-32.0 [facility] Comment on above: Performed By: #### B MP, CRP #### [facility] [address] [address] [address] Radha Galindo Creatinine [Mass/Vol] 1.01 mg/dL Normal 0.55-1.02 [facility] Comment on above: Performed By: #### B MP, CRP #### [facility] [address] [address] [address] Radha Galindo EGFR-AF GHANAIAN >60 Normal >=60 [facility] Comment on above: Performed By: #### B MP, CRP #### [facility] [address] [address] [address] Radha Galindo EGFR-NON AF GHANAIAN 58 mL/min/1.73m2 Critically low >=60 [facility] Comment on above: Performed By: #### B MP, CRP #### [facility] [address] [address] [address] Radha Galindo Glucose [Mass/Vol] 137 mg/dL Critically high 74-106 [facility] Comment on above: Performed By: #### B MP, CRP #### [facility] [address] [address] [address] Radha Galindo Potassium [Moles/Vol] 3.7 mmol/L Normal 3.5-5.1 [facility] Comment on above: Performed By: #### B MP, CRP #### [facility] [address] [address] [address] Radha Galindo Sodium [Moles/Vol] 141 mmol/L Normal 136-145 [facility] Comment on above: Performed By: #### B MP, CRP #### [facility] [address] [address] [address] Radha Galindo Urea nitrogen [Mass/Vol] 11.0 mg/dL Normal 7.0-18.0 [facility] Comment on above: Performed By: #### B MP, CRP #### [facility] [address] [address] [address] Radha Galindo Urea nitrogen/Creatinine [Mass ratio] 10.9 mg/mg Normal [facility] Comment on above: Performed By: #### B MP, CRP #### [facility] [address] [place], [place] [address] Dr. Rad[facility] Galindo [facility] 18 mm/hr Normal <=30 [facility] Comment on above: Performed By: #### S EDR ####[facility] [address] [place], [place] [address]MyDr. Radha Galindo Covid-19 PCR (CVDTBH)on SARS-CoV-2 (COVID-19) RNA SUSAN+probe Ql (Unsp spec) Not detected Normal NOT DETECTED [facility] Comment on above: Result Comment: This test is not yet approved or cleared by the [place] FDA. When there are no FDA-approved or cleared tests available, and other criteria are met, FDA can make tests available under an emergency access mechanism called an Emergency Use Authorization (EUA). The EUA for this test is supported by the [place] of Health and Human Service's (HHS's) declaration that circumstances exist to justify the emergency use of in vitro diagnostics for the detection and/or diagnosis of the virus that causes COVID-19. This EUA will remain in effect (meaning this test can be used) for the duration of the COVID-19 declaration justifying emergency of IVDs, unless it is terminated or revoked by FDA (after which the test may no longer be used). When diagnostic testing is negative, the possibility of a false negative should be considered in the context of a patient's recent exposures and the presence of clinical signs and symptoms consistent with SARS-CoV-2. Performed By: #### C VDTBH #### [facility] [address] [place], [place] [address] Dr. Radha Galindo Covid-19 PCR (CVDTBH)on 01-28 SARS-CoV-2 (COVID-19) RNA SUSAN+probe Ql (Unsp spec) Not detected Normal NOT DETECTED [facility] Comment on above: Result Comment: This test is not yet approved or cleared by the [place] FDA. When there are no FDA-approved or cleared tests available, and other criteria are met, FDA can make tests available under an emergency access mechanism called an Emergency Use Authorization (EUA). The EUA for this test is supported by the [place] of Health and Human Service's (HHS's) declaration that circumstances exist to justify the emergency use of in vitro diagnostics for the detection and/or diagnosis of the virus that causes COVID-19. This EUA will remain in effect (meaning this test can be used) for the duration of the COVID-19 declaration justifying emergency of IVDs, unless it is terminated or revoked by FDA (after which the test may no longer be used). When diagnostic testing is negative, the possibility of a false negative should be considered in the context of a patient's recent exposures and the presence of clinical signs and symptoms consistent with SARS-CoV-2. Performed By: #### C VDTB #### [facility] [address] [place] [address] Dr. Radha Galindo Microalbumin (with Creat)on 12-12-2021 mALB <1.2 Low [facility] Comment on above: Result Comment: Unab le to calculate mALB/Crea ratio, mALB is <1.2 mg/dL mALB reference range not established. Performed By: #### m ALBC #### [facility] [address] [place], [place] [id number] UCREA 60 mg/dL Normal 28-217 [facility] Comment on above: Performed By: #### m ALBC #### [facility] [address] [place], [place] [id number] Complete Blood Count with Au to Diffon 11-28-2021 Basophils (Bld) [#/Vol] 0.07 10*3/uL Normal 0.00-0.20 [facility] Comment on above: Performed By: #### C MP, CBCAD, VITD, LIPD #### [facility] [address] [place], [place] [id number] Basophils/100 WBC (Bld) 0.6 % Normal [facility] Comment on above: Performed By: #### C MP, CBCAD, VITD, LIPD #### [facility] [address] [place], [place] [id number] Eosinophils (Bld) [#/Vol] 0.17 10*3/uL Normal 0.02-0.50 [facility] Comment on above: Performed By: #### C MP, CBCAD, VITD, LIPD #### [facility] [address] [place], [place] [id number] Eosinophils/100 WBC (Bld) 1.4 % Normal [facility] Manager Comment on above: Performed By: #### C MP, CBCAD, VITD, LIPD #### [facility] [address] [place], [place] [id number] Erythrocyte distribution width (RBC) [Ratio] 14.1 % Normal 11.0-15.0 [facility] Manager Comment on above: Performed By: #### C MP, CBCAD, VITD, LIPD #### [facility] [address] [place], [place] [id number] Hematocrit (Bld) [Volume fraction] 46.1 % Normal 35.0-47.0 [facility] Comment on above: Performed By: #### C MP, CBCAD, VITD, LIPD #### [facility] [address] [place], [place] [id number] Hemoglobin (Bld) [Mass/Vol] 15.6 g/dL High 11.6-15.5 [facility] Manager Comment on above: Performed By: #### C MP, CBCAD, VITD, LIPD #### [facility] [address] [place], [place] [id number] Lymphocytes (Bld) [#/Vol] 3.0 10*3/uL Normal 0.9-3.9 [facility] Comment on above: Performed By: #### C MP, CBCAD, VITD, LIPD #### [facility] [address] [place], [place] [id number] Lymphocytes/100 WBC (Bld) 25.9 % Normal [facility] Manager Comment on above: Performed By: #### C MP, CBCAD, VITD, LIPD #### [facility] [address] [place], [place] [id number] MCH (RBC) [Entitic mass] 31.0 pg Normal 27.0-33.0 [facility] Comment on above: Performed By: #### C MP, CBCAD, VITD, LIPD #### [facility] [address] [place], [place] [id number] MCHC (RBC) [Mass/Vol] 33.8 g/dL Normal 32.0-36.0 [facility] Comment on above: Performed By: #### C MP, CBCAD, VITD, LIPD #### [facility] [address] [place], [place] [id number] MCV (RBC) [Entitic vol] 92 fL Normal 80-100 [facility] Comment on above: Performed By: #### C MP, CBCAD, VITD, LIPD #### [facility] [address] [place], [place] [id number] Monocytes (Bld) [#/Vol] 0.8 10*3/uL Normal 0.2-0.9 [facility] Comment on above: Performed By: #### C MP, CBCAD, VITD, LIPD #### [facility] [address] [place], [place] [id number] Monocytes/100 WBC (Bld) 6.8 % Normal [facility] Comment on above: Performed By: #### C MP, CBCAD, VITD, LIPD #### [facility] [address] [place], [place] [id number] Neutrophils (Bld) [#/Vol] 7.6 10*3/uL Normal 1.5-7.8 [facility] Comment on above: Performed By: #### C MP, CBCAD, VITD, LIPD #### [facility] [address] [place], [place] [id number] Neutrophils/100 WBC (Bld) 64.4 % Normal [facility] Comment on above: Performed By: #### C MP, CBCAD, VITD, LIPD #### [facility] [address] [place], [place] [id number] Platelet mean volume (Bld) [Entitic vol] 9.50 fL Normal 7.50-12.50 [facility] Comment on above: Performed By: #### C MP, CBCAD, VITD, LIPD #### [facility] [address] [place], [place] [id number] Platelets (Bld) [#/Vol] 304 10*3/uL Normal 140-400 [facility] Comment on above: Performed By: #### C MP, CBCAD, VITD, LIPD #### [facility] [address] [place], [place] [id number] RBC (Bld) [#/Vol] 5.03 10*6/uL Normal 3.90-5.20 [facility] Comment on above: Performed By: #### C MP, CBCAD, VITD, LIPD #### [facility] [address] [place], [place] [id number] RDW-SD 47.6 fL Normal 37.0-50.0 [facility] Comment on above: Performed By: #### C MP, CBCAD, VITD, LIPD #### [facility] [address] [place], [place] [id number] WBC (Bld) [#/Vol] 11.8 10*3/uL High 3.8-11.0 [facility] Comment on above: Performed By: #### C MP, CBCAD, VITD, LIPD #### [facility] [address] [place], [place] [id number] Comprehensive Metabolic Pane [facility] 11-28-2021 Albumin [Mass/Vol] 4.9 g/dL Normal 3.6-5.[address] [facility] Comment on above: Performed By: #### C MP, CBCAD, VITD, LIPD #### [facility] [address] [place], [place] [id number] Albumin/Globulin [Mass ratio] 2.3 {ratio} Normal 1.0-2.5 [facility] Comment on above: Performed By: #### C MP, CBCAD, VITD, LIPD #### [facility] [address] [place], [place] [id number] ALP [Catalytic activity/Vol] 82 U/L Normal 35-119 [facility] Comment on above: Performed By: #### C MP, CBCAD, VITD, LIPD #### [facility] [address] [place], [place] [id number] ALT [Catalytic activity/Vol] 44 U/L High 6-33 [facility] Comment on above: Result Comment: 06/29 Female reference range changed. Performed By: #### C MP, CBCAD, VITD, LIPD #### [facility] [address] [place], [place] [id number] Anion gap [Moles/Vol] 17 mmol/L Normal 12-20 [facility] Comment on above: Result Comment: Effe ctive 08/04/2019 reference range changed. Performed By: #### C MP, CBCAD, VITD, LIPD #### [facility] [address] [place], [place] [id number] AST [Catalytic activity/Vol] 27 U/L Normal 9-34 [facility] Comment on above: Performed By: #### C MP, CBCAD, VITD, LIPD #### [facility] [address] [place], [place] [id number] Bilirubin [Mass/Vol] 0.97 mg/dL Normal 0.30-1.20 [facility] Comment on above: Performed By: #### C MP, CBCAD, VITD, LIPD #### [facility] [address] [place], [place] [id number] BUN/CREA 14 Ratio Normal 6-22 [facility] Comment on above: Performed By: #### C MP, CBCAD, VITD, LIPD #### [facility] [address] [place], [place] [id number] Calcium [Mass/Vol] 10.3 mg/dL High 8.6-10.[address] [facility] Comment on above: Performed By: #### C MP, CBCAD, VITD, LIPD #### [facility] [address] [place], [place] [id number] Chloride [Moles/Vol] 101 mmol/L Normal 98-107 [facility] Comment on above: Performed By: #### C MP, CBCAD, VITD, LIPD #### [facility] [address] [place], [place] [id number] CO2 [Moles/Vol] 25 mmol/L Normal 20-31 [facility] Comment on above: Performed By: #### C MP, CBCAD, VITD, LIPD #### [facility] [address] [place], [place] [id number] Creatinine [Mass/Vol] 1.0 mg/dL Normal 0.6-1.4 [facility] Comment on above: Performed By: #### C MP, CBCAD, VITD, LIPD #### [facility] [address] [place], [place] [id number] eGFRAA 75 mL/min/1.73m2 Normal >60 [facility] Manager Comment on above: Performed By: #### C MP, CBCAD, VITD, LIPD #### [facility] [address] [place], [place] [id number] eGFRNAA 62 mL/min/1.73m2 Normal >60 [facility] Manager Comment on above: Performed By: #### C MP, CBCAD, VITD, LIPD #### [facility] [address] [place], [place] [id number] Globulin (S) [Mass/Vol] 2.1 g/dL Normal 1.9-3.7 [facility] Comment on above: Performed By: #### C MP, CBCAD, VITD, LIPD #### [facility] [address] [place], [place] [id number] Glucose [Mass/Vol] 120 mg/dL High 65-99 [facility] Special[facility] Comment on above: Result Comment: For FASTING Glucose --- ADA reference ranges: Normal 65-99 mg/dl Prediabetes 100-125 Diabetes >/= 126 Performed By: #### C MP, CBCAD, VITD, LIPD #### [facility] [address] [place], [place] [id number] Potassium [Moles/Vol] 4.4 mmol/L Normal 3.5-5.5 [facility] Manager Comment on above: Performed By: #### C MP, CBCAD, VITD, LIPD #### [facility] [address] [place], [place] [id number] Protein [Mass/Vol] 7.0 g/dL Normal 6.1-8.1 [facility] Manager Comment on above: Performed By: #### C MP, CBCAD, VITD, LIPD #### [facility] [address] [place], [place] [id number] Sodium [Moles/Vol] 139 mmol/L Normal 135-[address] [facility] Comment on above: Performed By: #### C MP, CBCAD, VITD, LIPD #### [facility] [address] [place], [place] [id number] Urea nitrogen [Mass/Vol] 13 mg/dL Normal 7-25 [facility] Comment on above: Performed By: #### C MP, CBCAD, VITD, LIPD #### [facility] [address] [place], [place] [id number] Hemoglobin A1Con 11-28-2021 EAG 131.24 Normal [facility] Comment on above: Performed By: #### A 1C #### [facility] [address] [place], [place] [id number] HbA1c (Bld) [Mass fraction] 6.2 % High 4.0-6.0 [facility] Comment on above: Performed By: #### A 1C #### [facility] [address] [place], [place] [id number] Lipid Panelon 11-28-2021 Cholesterol [Mass/Vol] 243 mg/dL High 125-200 [facility] Comment on above: Result Comment: Low risk < 200mg/dL Borderline risk 201-239 mg/dl High risk > or equal to 240 Performed By: #### C MP, CBCAD, VITD, LIPD #### [facility] [address] [place], [place] [id number] Cholesterol in HDL [Mass/Vol] 58 mg/dL Normal >40 [facility] Comment on above: Result Comment: High Cardiovascular Risk HDL <40 mg/dL Low Cardiovascular Risk HDL > or equal to 60 mg/dl Performed By: #### C MP, CBCAD, VITD, LIPD #### [facility] [address] [place], [place] [id number] Cholesterol in LDL [Mass/Vol] 154 mg/dL Normal [facility] Comment on above: Result Comment: LDL ATP III CLASSIFICATION LDL less than 100 mg/dl Optimal LDL 100-129 mg/dl Near or above optimal LDL 130-159 Borderline high LDL 160-189 High LDL greater than 189 mg/dl Very High Performed By: #### C MP, CBCAD, VITD, LIPD #### [facility] [address] [place], [place] [id number] Cholesterol in VLDL [Mass/Vol] 31 mg/dL Normal [facility] Manager Comment on above: Performed By: #### C MP, CBCAD, VITD, LIPD #### [facility] [address] [place], [place] [id number] Cholesterol.total/Ch olesterol in HDL [Mass ratio] 4 {ratio} Normal [facility] Manager Comment on above: Performed By: #### C MP, CBCAD, VITD, LIPD #### [facility] [address] [place], [place] [id number] Triglyceride [Mass/Vol] 154 mg/dL High 30-150 [facility] Manager Comment on above: Result Comment: TRIG ATPIII CLASSIFICATIONS TRIG less than 150 mg/dl Normal TRIG 150-199 mg/dl Borderline High TRIG 200-500 mg/dl High TRIG greather than 500 mg/dl Very High Performed By: #### C MP, CBCAD, VITD, LIPD #### [facility] [address] [place], [place] [id number] Vitamin D 25-OHon 11-28-2021 VIT D 25 OH 73 ng/ml Normal >29 [facility] Manager Comment on above: Result Comment: Janneth min D Status Deficiency <20 ng/mL Insufficiency 20-29 ng/mL Optimal 30-100 ng/mL Possible Toxicity >=150 ng/mL Performed By: #### C GERALDO, CBCAD, VITD, LIPD #### [facility] [address] [place], [place] [id number] Maximo 03-08-2021 CNPN Telephone (ORQ) DHARA BETTENCOURT ([id number]) 1970 F Date Time Provider Department 03/08/21 NAINA OLIVA ORCris During your visit today, we recorded the following information about you: Glennajulia Santana 03/08/2021 4:45 PM Signed Patient called requesting a refill for Diclofenac Sod ER 100 mg tab. To send to [facility] at [phone] fax [phone] Glenna Lackey Leigha Santana 03/17/2021 1:01 PM Signed Spoke to patient, she stated that got theOral Voltaren Oral Voltaren from her family doctor. 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 Allergies As of Date: 03/08/2021 Noted Allergy Reaction HYDROMORPHONE 03/04/2013 9 - Itching Date Reviewed: 12/22/2020 Reviewed by: Kirsten Vilchis - Fully Assessed Reason for Visit: Medication Question [5168] Prescriptions as of 03/17/2021 - DULoxetine (CYMBALTA) 30 mg capsule Take 90 mg by mouth once daily. - amLODIPine (NORVASC) 5 mg tablet Take 1 tablet by mouth once daily. - OLANZapine (ZYPREXA) 5 mg tablet Take 1 tablet by mouth once daily. - furosemide (LASIX) 20 mg tablet Take 1 tablet by mouth once daily. - L.acid/L.casei/B.bif/B .aditya/FOS (PROBIOTIC BLEND ORAL) Take by mouth. - dicyclomine (BENTYL) 10 mg capsule Take 1 capsule by mouth as needed. - cyclobenzaprine (FLEXERIL) 10 mg tablet Take 10 mg by mouth as needed (for migraines). - albuterol HFA (PROVENTIL HFA, VENTOLIN HFA) 90 mcg/actuation inhaler Inhale 1 Puff as instructed as needed. - POTASSIUM-99 ORAL Take 1 capsule by mouth once daily. Problem List As Of Date: 03/08/2021 (None) Encounter Status:[facility] ([id number]) 1970 F Date Time Provider Department 03/08/21 NAINA OLIVA During your visit today, we recorded the following information about you: Allergies As of Date: 03/08/2021 Noted Allergy Reaction HYDROMORPHONE 03/04/2013 9 - Itching Date Reviewed: 12/22/2020 Reviewed by: Kirsten Vilchis - Fully Assessed Reason for Visit: Refill Request [94] Prescriptions as of 03/08/2021 - DULoxetine (CYMBALTA) 30 mg capsule Take 90 mg by mouth once daily. - amLODIPine (NORVASC) 5 mg tablet Take 1 tablet by mouth once daily. - OLANZapine (ZYPREXA) 5 mg tablet Take 1 tablet by mouth once daily. - furosemide (LASIX) 20 mg tablet Take 1 tablet by mouth once daily. - L.acid/L.casei/B.bif/B .aditya/FOS (PROBIOTIC BLEND ORAL) Take by mouth. - dicyclomine (BENTYL) 10 mg capsule Take 1 capsule by mouth as needed. - cyclobenzaprine (FLEXERIL) 10 mg tablet Take 10 mg by mouth as needed (for migraines). - albuterol HFA (PROVENTIL HFA, VENTOLIN HFA) 90 mcg/actuation inhaler Inhale 1 Puff as instructed as needed. - POTASSIUM-99 ORAL Take 1 capsule by mouth once daily. Problem List As Of Date: 03/08/2021 (None) Encounter Status:Closed by GLENNA QUINN on 03/08/21 [facility] Kobi 12-22-2020 CNOV Office Visit (ORTHMN ) DHARA BETTENCOURT ([id number]) 1970 F Date Time Provider Department 12/22/20 12:30 PM NAINA OLIVA During your visit today, we recorded the following information about you: Weight Height 99.8 kg 1.664 m Naina Oliva MD 12/22/2020 3:15 PM Signed Subjective: Dhara BETTENCOURT is a 50 year old female. Patient was accompanied to the office by her mother. The patient provided a history of a significant injury to her right lower extremity is a 8-year-old. She had close management of a right femur fracture as well as a injury to her right patella. The injury left her roughly 1 to 1-1/4 inches short on the right side. 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 She has developed some back and hip pain over the past few years and this pain has been progressive. She noted the pain prevents her from pursuing activities such as hiking walking or riding a motorcycle. She noted no numbness tingling weakness with the discomfort. Discomfort is centered in the low back and the hip area on the left side. She denies a history of locking catching giving way in the lower extremities. The patient was hoping a left leg shortening would be entertained to reduce her low back pain. Past Social History: Social History Tobacco Use - Smoking status: 35 pack year history Substance Use Topics - Alcohol use: Not on file - Drug use: Not on file ? Past Surgical History: No past surgical history on file. Past Medical History: Current Outpatient Medications Medication Sig - L.acid/L.casei/B.bif/B .aditya/FOS (PROBIOTIC BLEND ORAL) Take by mouth. - cyclobenzaprine (FLEXERIL) 10 mg tablet Take 10 mg by mouth as needed (for migraines). - POTASSIUM-99 ORAL Take 1 capsule by mouth once daily. - DULoxetine (CYMBALTA) 30 mg capsule Take 90 mg by mouth once daily. - amLODIPine (NORVASC) 5 mg tablet Take 1 tablet by mouth once daily. - OLANZapine (ZYPREXA) 5 mg tablet Take 1 tablet by mouth once daily. - furosemide (LASIX) 20 mg tablet Take 1 tablet by mouth once daily. - dicyclomine (BENTYL) 10 mg capsule Take 1 capsule by mouth as needed. - albuterol HFA (PROVENTIL HFA, VENTOLIN HFA) 90 mcg/actuation inhaler Inhale 1 Puff as instructed as needed. - diclofenac XR (VOLTAREN-XR) 100 mg Tb24 Take 1 tablet by mouth once daily. Take with food. No current facility-administered medications for this visit. Past Family History: No family history on file. 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 SKIN:Negative for lesions, rash, and itching PSYCHIATRIC: Negative for sleep disturbance, mood disorder and recent psychosocial stressors. HEMATOLOGIC/LYMPHATIC/ IMMUNOLOGIC:Negative for prolonged bleeding, bruising easily or swollen nodes ENDOCRINE: Negative for cold or heat intolerance, polyuria, polydipsia and goiter The remainder of the ROS was negative. Objective: Ht 166.4 cm (5' 5.5 ) Wt 99.8 kg (220 lb) BMI 36.05 kg/m? Physical Exam: Patient is a very heavy female no acute distress. She has audible wheezing and reported a history of at least 1 pack/day smoking since age 13 the patient walks with an antalgic gait pattern consistent with a leg length inequality. When placed on the examining table the left femur appears to be 1 inch longer than the right femur. The patient has no tenderness or limitation in range of motion of the right or left hip. Motor and sensory intact both lower extremities. Deep reflexes are 1+ and symmetric bilaterally. The patient does have some tenderness over the left SI joint and is clearly tender with lateral bending to the left side. There is less tenderness to lateral bending to the right side. Imaging Studies: Radiographs of the knees demonstrated normal physiologic valgus alignment. The right patella appears to be lower and slightly lateral as compared to the position of the left patella. The lumbar spine demonstrated some mild curvature with significant facet degenerative disease on the left side. Impression: The patient has degenerative di (more content not included)... Normal [facility] XR OUTSIDE CD DICOM IMPORT - NBNRon 11-17-2020 XR OUTSIDE CD DICOM IMPORT -NBNR Images were obtained outside of [facility] [id number] Normal [facility] XR OUTSIDE CD DICOM IMPORT -NBNR Images were obtained outside of [facility] [id number] Normal [facility] Vital Signs Date Time Vital Sign Value Performing Clinician Alex owens 03-22-2024 09:240400 Body height 165.[address] [facility] 03-22-2024 09:240400 Body mass index (BMI) [Ratio] 35.2 kg/m2 [facility] 03-22-2024 09:24-0400 Body temperature 98 [degF] [facility] 03-22-2024 09:24-0400 Body weight 96.[address] [facility] 03-22-2024 09:24-0400 Diastolic blood pressure 65 mm[Hg] [facility] 03-22-2024 09:24-0400 Heart rate 74 /min [facility] 03-22-2024 09:24-0400 Respiratory rate 18 /min [facility] 03-22-2024 09:24-0400 SaO2% (BldA) [Mass fraction] 94 % [facility] 03-22-2024 09:24-0400 Systolic blood pressure 132 mm[Hg] [facility] Encounters Encounter Date Encounter Type Care Provider Facility Start: 04-14-2024 End: 04-14-2024 ambulatory JOSEY YOUSSEF Not Available Start: 03-22-2024 End: 03-22-2024 ambulatory [facility] Work Phone: Start: 03-22-2024 End: 03-22-2024 Patient encounter procedure [facility] Work Phone: Start: 10-23-2023 End: 10-23-2023 ambulatory JOSEY YOUSSEF Not Available Start: 02-26-2023 End: 02-27-2023 ambulatory Yamile Lopez MD Facility:[facility] Start: 02-05-2023 End: 02-06-2023 ambulatory Yamile Lopez MD Facility:[facility] Start: 01-22-2023 End: 01-23-2023 ambulatory Yamile Lopez MD Facility:[facility] Start: 01-08-2023 End: 01-09-2023 ambulatory Yamile Lopez MD Facility:[facility] Start: 12-27-[address] JOSEY YOUSSEF Facility: [facility] Start: 12-15-2022 End: 12-16-2022 ambulatory DEYA DUNN . Facility:[facility] Start: 12-08-2022 End: 12-09-2022 ambulatory BHUMIKA RAYMUNDOMIPATHJes . Facility:[facility] Start: 09-07-2022 End: 09-08-[address] JOSEY YOUSSEF Facility:[facility] Start: 09-07-2022 End: 09-08-[address] AMELIA WATTS . Facility:[facility] Start: 06-01-2022 End: 06-02-2022 ambulatory GRANT MCGILL . Facility:[facility] Start: 05-16-2022 End: 05-16-2022 ambulatory CANDICE VALENCIA Facility:[facility] Start: 04-06-2022 End: 04-07-2022 ambulatory GRANT MCGILL . Facility:[facility] Start: 03-08-2022 Encounter for preprocedural laboratory examination DR AMELIA WATTS . [facility] Start: 03-07-2022 End: 03-07-[address] AMELIA WATTS . Facility:[facility] Start: 03-06-2022 End: 03-07-[address] AMELIA WATTS . Facility:[facility] Start: 03-06-2022 End: 03-07-2022 Encounter for preprocedural laboratory examination DR AMELIA WATTS . Facility:[facility] Start: 02-28-2022 End: 02-28-[address] AMELIA WATTS . Facility:[facility] Start: 02-24-2022 End: 02-25-[address] AMELIA WATTS . Facility:[facility] Start: 01-26-2022 End: 01-27-2022 ambulatory GRANT NANO . Facility:[facility] Start: 01-17-2022 End: 01-17-[address] JOSEY YOUSSEF Facility:[facility] Payers Date Payer Category Payer Unknown 1970 Unknown [id number] 2.16.84 [id number] 1970 Unknown [id number] 2.16.84 [id number] 1970 Unknown [id number] 2.16.84 0.1.843935.3.579.2.593 1969 Unknown [id number] 2.16.84 0.1.807042.3.579.2.593 1969 Unknown [id number] 2.16.84 0.1.799337.3.579.2.593 1969 Unknown [id number] 2.16.84 0.1.170667.3.579.2.593 1969 Unknown [id number] 2.16.84 0.1.166728.3.579.2.593 1969 Unknown [id number] 2.16.84 0.1.050457.3.579.2.593 1969 Unknown [id number] 2.16.84 0.1.797738.3.579.2.593 1969 Unknown [id number] 2.16.84 0.1.673588.3.579.2.593 1969 Unknown [id number] 2.16.84 0.1.570873.3.579.2.593 1969 Unknown [id number] 2.16.84 0.1.089543.3.579.2.593 1969 Unknown [id number] 2.16.84 0.1.162646.3.579.2.593 1969 Unknown [id number] 2.16.84 0.1.828301.3.579.2.593 1969 Unknown [id number] 2.16. 840.1.485758.3.579.2.196 1969 Unknown [id number] 2.16. 840.1.104096.3.579.2.196 1969 Unknown [id number] 2.16. 840.1.625699.3.579.2.196 1969 Unknown [id number] 2.16. 840.1.479610.3.579.2.196 1969 Unknown [id number] 2.16.84 0.1.906716.3.579.2.1259 1969 Unknown [id number] 2.16.84 0.1.807314.3.579.2.1259 1959 Unknown [id number] 1960 Unknown [id number] Social History Date Type Detail Facility Start: [facility]22 [facility] Start: 1970 Sex Assigned At Female F [facility] Clinical Note 12-15-2022 Note Date & Type Note Facility 12-15-2022 Note PROCEDURE: XR SACRUM _COCCYX COMPARISON: None. HISTORY: Lumbar spondylosis ; chronic lumbar pain radiating into bilateral hips, left greater than right FINDINGS: SACRUM: No fracture, disruption of the sacral ala line, or cortical irregularity. COCCYX: No fracture or suspicious alignment. SOFT TISSUES: No widening of the sacroiliac joints. No radiopaque foreign body. OTHER: IMPRESSION: 1. No appreciable fracture or lesion. 2. Minimal degenerative changes of the right sacroiliac joint. Electronically authenticated by: BRANDON CRUZ Date: 2022-12-15 08:23 [facility] Consultation note 09-07-2022 Note Date & Type Note Facility 09-07-2022 Note CONSULTATION CONSULTATION DATE: 09/07/2022 HISTORY OF PRESENT ILLNESS: This is a pleasant, 52-year-old female who returns to the clinic for a three month follow up. Today, she is complaining of lower back spasms diffusely across her back. Her pain with activities is 8/10. Standing, twisting, turning, bending, stairs and lifting aggravate her pain. She did receive very successful lumbar trigger point injections in May, and she is inquiring about that today. These trigger injections gave her approximately seven weeks of relief. Medications include diclofenac 100 mg daily, Flexeril 10 mg daily and tramadol 50 mg daily p.r.n. She denies any radicular pain, but is complaining of what she describes as slight lower extremity weakness. She denies any falls or injury. Patient's REVIEW OF SYSTEMS / PAST MEDICAL HISTORY / ALLERGIES and IMAGES have been reviewed and noted on the chart. PHYSICAL EXAM: VITAL SIGNS: Blood pressure is 148/77. Heart rate is 79. She is 5'5 , weighs 104 kg. GENERAL IMPRESSION: Pleasant, appropriate, in no acute distress. FOCUSED EXAM - BACK: Range of motion is functional in lateral rotation and flexion/extension. Upon palpation of her lower lumbar muscles, she has obvious trigger points diffusely across bilateral erector spinae. Positive jump response to palpation. No spinal axial pain upon compression along the facets. Trupti's point is non-tender bilaterally. MUSCULOSKELETAL: Motor is intact, 4/5 bilaterally. Patient does walk unassisted with a stable gait. No vasomotor weakness appreciated. NEUROLOGICALLY: Radicular sensory is intact. Negative polyneuropathy. DIAGNOSIS: Lumbar spasms, lumbar spondylosis, lumbar degenerative disc disease. PLAN: Patient will receive lumbar trigger point injections bilaterally in the office, which she does consent to. The patient states, with steroids, she does get oral thrush so, therefore, Nystatin swish and spit was prescribed four times a day for seven days. We will start her on gabapentin 300 mg q.h.s. and obtain a U-Tox in the clinic today. We will see her in three months' time, unless otherwise indicated. Patient agrees with this plan. [facility] Consultation note 09-07-2022 Note Date & Type Note Facility 09-07-2022 Note CONSULTATION PROCEDURE DATE: 09/07/2022 PREOPERATIVE DIAGNOSIS: Bilateral lumbar paravertebral spasms. POSTOPERATIVE DIAGNOSIS: Bilateral lumbar paravertebral spasms. PROCEDURE: Bilateral lumbar trigger point injections. Subsequent to obtaining informed consent, the patient was placed in the upright standing forward flexion position. Alcohol prep was used to sterilize the site in four locations. A 25 gauge needle with 0.125% Marcaine, 40 mg of Kenalog in a total of 2.5 cc injected in four locations; two on the left and two on the right. Negative heme. Medication was injected in a slow, fan-like pattern. Patient tolerated the procedure well, and she will be followed up in the office. [facility] Consultation note 06-01-2022 Note Date & Type Note Facility 06-01-2022 Note CONSULTATION CONSULTATION DATE: 06/01/2022 HISTORY OF PRESENT ILLNESS: This is a 51-year-old female returning to the clinic status post trigger point injection on 04/06/2022 and post RFA from February of 2022. The patient did get moderate relief to the left side, which was at the level of the trigger point, but it was not long lasting. Her pain is 5/10 today and described as a deep ache. She currently is not using any heat or ice or stretches. She did have an ER visit two weeks ago due to left lumbar pain that radiated to her hip and to the lateral aspect of her left lower extremity, mid thigh. She reports activities such as lifting, housework, ADLs and twisting aggravate her pain. In the ER, she received an IV muscle relaxer and pain medication, which did give her some relief. Her medications currently include Flexeril 10 mg daily, (Flexeril dictated again - please verify) 100 mg daily and tramadol 50 mg daily p.r.n. Patient's REVIEW OF SYSTEMS / PAST MEDICAL HISTORY / ALLERGIES and IMAGES have been reviewed and they are noted on the chart. PHYSICAL EXAM: VITAL SIGNS: Blood pressure 130/69, heart rate is 87. She is 5'5 and weighs 105 kg. GENERAL IMPRESSION: Pleasant, appropriate, no acute distress. FOCUSED EXAM - BACK: Significant bilateral paravertebral spasms are noted along the L4-L5 area that radiates to the hip. Compression along these areas reproduces the patient's pain symptomatology. Trupti's point non-tender. FABERs and compression negative. MUSCULOSKELETAL: Motor is intact, 4/5 bilaterally. Tone is good. Patient walks with a steady gait. NEUROLOGICALLY: Radicular sensory is intact. Negative polyneuropathy. DIAGNOSIS: Lumbar paravertebral spasms, lumbar degenerative disc disease and lumbar spondylosis. PLAN: Patient will receive bilateral lumbar trigger point injections in the clinic today, which she does consent to. I spent time discussing adding magnesium to her multivitamin regiment as well as heat, menthol rub and stretches which were demonstrated. Patient will be seen in the clinic in three months' time unless otherwise indicated. [facility] Consultation note 06-01-2022 Note Date & Type Note Facility 06-01-2022 Note CONSULTATION PROCEDURE DATE: 06/01/2022 PREOPERATIVE DIAGNOSIS: Bilateral lumbar spasms. POSTOPERATIVE DIAGNOSIS: Bilateral lumbar spasms. PROCEDURE: Bilateral lumbar trigger point injections. Subsequent to obtaining informed consent, the patient was placed in the upright standing forward flexion position. Alcohol prep was used to sterilize the site. A 25 gauge needle with 0.125% Marcaine and 40 mg of Kenalog was divided into three injections. Needle was placed to rest inside the trigger zones. Negative heme. Medication was injected in each site in a slow, fan-like pattern. Patient tolerated procedure well with no overt complications and will be followed up in the office. [facility] Consultation note 04-06-2022 Note Date & Type Note Facility 04-06-2022 Note CONSULTATION PROCEDURE DATE: 04/06/2022 PRE AND POSTOPERATIVE DIAGNOSIS: Left gluteal spasm. PROCEDURE: Left gluteal trigger point injection. Subsequent to obtaining informed consent, the patient was placed in the upright standing forward flexion position. A 25-gauge needle with 0.125% Marcaine and 40 mg of Kenalog was placed to rest inside the trigger zone. Negative heme. Medication was injected in the fan-like pattern and the patient tolerated the procedure well. She will be followed up in the clinic. [facility] Consultation note 04-06-2022 Note Date & Type Note Facility 04-06-2022 Note CONSULTATION CONSULTATION DATE: 04/06/2022 HISTORY OF PRESENT ILLNESS: This is a 51-year-old female returning to the clinic status post bilateral lumbar RFAs of L2, L3 and L4, L5; her last procedure being done on 03/07/2022. The patient, at this time, is reporting 25% relief to her lumbar area. Today, she rates 6/10, which she has left gluteal pain that radiates down the posterior aspect of her left leg to the level of the knee. Any activity increases that pain. Those activities are twisting, pushing, pulling, lifting, bending and lifting her left leg up. Current medications include Flexeril 10 mg daily, Cymbalta 90 mg daily, diclofenac 100 mg daily and tramadol 50 mg daily. She denies any vasomotor weakness. She does not use heat or ice. Patient's REVIEW OF SYSTEMS / PAST MEDICAL HISTORY / ALLERGIES and IMAGES have been reviewed and they are noted on the chart. PHYSICAL EXAM: Blood pressure is 125/77. Heart rate is 91. Temperature is 97. 1. She is 5'5 and weighs 105 kg. GENERAL APPEARANCE: Pleasant, appropriate, in no acute distress, leaning right while sitting in the chair. FOCUSED EXAM - BACK: Upon compression, there is no reproduction of spinal axial pain along the lower lumbar facets. Paravertebral muscles are non-spasmodic. A trigger point identified to the left gluteal muscle with positive jump response along S1 region. Compression of this reproduces patient's pain symptomatology. Trupti's point is non-tender with negative FABERs and compression test. MUSCULOSKELETAL: Motor is intact, 4/5 bilaterally. Decent muscle tone. Patient ambulates with a steady gait, does not use assistive device. NEUROLOGICAL: Radicular sensory is intact with patchy hypoesthesia noted along S1 dermatome to the left to the level of the knee. DIAGNOSIS: Lumbar radiculitis, lumbar spondylosis, lumbar degenerative disc and left gluteal spasm. PLAN: Patient does consent to left gluteal trigger point injection today. Insurance approval will be needed. Patient is to use a heat rub as well as heat to her gluteal region and stretches were demonstrated. Upon approval of insurance, patient will be called and brought back to the office to receive her injection. Patient is to continue with her multivitamin regimen. [facility] Consultation note 01-26-2022 Note Date & Type Note Facility 01-26-2022 Note CONSULTATION CONSULTATION DATE: 01/26/2022 This is a pleasant 51-year-old female returning to the clinic status post #2 bilateral MBB of L2, L3 andL4, L5 which afforded her 100% relief for two days. She states the pain is 6 out of 10, described as achy and throbbing which she feels is back to her baseline. Activities that aggravate her pain are prolonged standing, walking, pushing, pulling, lifting, housework and bending. She does take Flexeril 10 mg q.h.s., Diclofenac 100 mg q.day and Tramadol 50 mg p.r.n. She reports not using the Tramadol as much and gets decent results with her diclofenac. She is also on a multivitamin regimen. The patient feels that she has some leg weakness today which is not new but it is consistent with her baseline pain. REVIEW OF SYSTEMS, PAST MEDICAL HISTORY, ALLERGIES AND IMAGES: Have been reviewed and noted in the chart. PHYSICAL EXAM: VITAL SIGNS: Blood pressure 135/76, heart rate is 93, temperature is 97.5. Height is 5'5 , weighs 103.1 kg. GENERAL APPEARANCE: Pleasant, appropriate and in no acute distress. FOCUSED EXAM: HEART: No JVD. No orthostatic deviation. BACK: Range of motion is guarded in lateral rotation and flexion/extension. Reproduction of the patient's pain symptoms to direct compression along the posterior elements of the lumbar facets of L2, L3 and L4, L5 with fullness palpated as well. This is concordant with ill facet arthropathy, lumbar spondylosis. Pain radiates down the left lower extremity to the lateral aspect mid-thigh. MUSCULOSKELETAL: Motor is intact 4 out of 5 bilaterally. The patient walks with a stable gait with good muscle tone. NEUROLOGICAL: Negative polyneuropathy, patellar and Achilles reflexes are intact. DIAGNOSIS: Lumbar degenerative disk, lumbar spondylosis, spinal axial lower back pain. PLAN: We will move forward with radiofrequency ablation starting on the left side of L2, L3 and L4, L5 and subsequently move to the right. The patient was encouraged to add magnesium glycinate 400 mg in addition to using menthol heat rub and heat nightly moving into the ablation procedure. The patient agrees with the plan of care and would like to proceed and be followed up in the office post-procedure. [facility] Signed and Approved by: GRANT MCGILL . 02/02/2022 16:26:00 [facility] Progress note 12-22-2020 Note Date & Type Note Facility 12-22-2020 Note HNO ID: [id number] Author: Naina Oliva MD Service: ? Author Type: Physician Type: Progress Notes Filed: 12/22/2020 3:15 PM Note Text: Subjective: hDara BETTENCOURT is a 50 year old female. Patient was accompanied to the office by her mother. The patient provided a history of a significant injury to her right lower extremity is a 8-year-old. She had close management of a right femur fracture as well as a injury to her right patella. The injury left her roughly 1 to 1-1/4 inches short on the right side. 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 She has developed some back and hip pain over the past few years and this pain has been progressive. She noted the pain prevents her from pursuing activities such as hiking walking or riding a motorcycle. She noted no numbness tingling weakness with the discomfort. Discomfort is centered in the low back and the hip area on the left side. She denies a history of locking catching giving way in the lower extremities. The patient was hoping a left leg shortening would be entertained to reduce her low back pain. Past Social History: Social History Tobacco Use - Smoking status: 35 pack year history Substance Use Topics - Alcohol use: Not on file - Drug use: Not on file ? Past Surgical History: No past surgical history on file. Past Medical History: Current Outpatient Medications Medication Sig - L.acid/L.casei/B.bif/B.aditya/FOS (PROBIOTIC BLEND ORAL) Take by mouth. - cyclobenzaprine (FLEXERIL) 10 mg tablet Take 10 mg by mouth as needed (for migraines). - POTASSIUM-99 ORAL Take 1 capsule by mouth once daily. - DULoxetine (CYMBALTA) 30 mg capsule Take 90 mg by mouth once daily. - amLODIPine (NORVASC) 5 mg tablet Take 1 tablet by mouth once daily. - OLANZapine (ZYPREXA) 5 mg tablet Take 1 tablet by mouth once daily. - furosemide (LASIX) 20 mg tablet Take 1 tablet by mouth once daily. - dicyclomine (BENTYL) 10 mg capsule Take 1 capsule by mouth as needed. - albuterol HFA (PROVENTIL HFA, VENTOLIN HFA) 90 mcg/actuation inhaler Inhale 1 Puff as instructed as needed. - diclofenac XR (VOLTAREN-XR) 100 mg Tb24 Take 1 tablet by mouth once daily. Take with food. No current facility-administered medications for this visit. Past Family History: No family history on file. 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 SKIN:Negative for lesions, rash, and itching PSYCHIATRIC: Negative for sleep disturbance, mood disorder and recent psychosocial stressors. HEMATOLOGIC/LYMPHATIC/IMMUNOLOGIC:Negativ e for prolonged bleeding, bruising easily or swollen nodes ENDOCRINE: Negative for cold or heat intolerance, polyuria, polydipsia and goiter The remainder of the ROS was negative. Objective: Ht 166.4 cm (5' 5.5 ) Wt 99.8 kg (220 lb) BMI 36.05 kg/m? Physical Exam: Patient is a very heavy female no acute distress. She has audible wheezing and reported a history of at least 1 pack/day smoking since age 13 the patient walks with an antalgic gait pattern consistent with a leg length inequality. When placed on the examining table the left femur appears to be 1 inch longer than the right femur. The patient has no tenderness or limitation in range of motion of the right or left hip. Motor and sensory intact both lower extremities. Deep reflexes are 1+ and symmetric bilaterally. The patient does have some tenderness over the left SI joint and is clearly tender with lateral bending to the left side. There is less tenderness to lateral bending to the right side. Imaging Studies: Radiographs of the knees demonstrated normal physiologic valgus alignment. The right patella appears to be lower and slightly lateral as compared to the position of the left patella. The lumbar spine demonstrated some mild curvature with significant facet degenerative disease on the left side. Impression: The patient has degenerative disease in the lumbar spine. This may or may not be due to the leg length inequality. 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 It is unl (more content not included)... [facility] Evaluation note Note Date & Type Note Facility Evaluation note No assessment information availa [facility] Work Phone: Summary Purpose Family History No Family History Records Found Relationship Condition Age at Onset Recorded Date/T lance father Malignant neoplasm Unknown mother Malignant neoplasm Unknown Diabetes mellitus Unknown Heart disease Unknown Hypertension Unknown Advance Directives No Advanced Directives Records Found Advance Directive Response Recorded Date/ Time Advance Directives No March 22, 2024 9:11am Chief Complaint and Reason for Visit Chief Complaint Right eye irritation , redness Additional Source Comments INFORMATION SOURCE (unrecogn ized section and content) DATE CREATED AUTHOR 08/30/2021 [facility] DATE CREATED AUTHOR AUTHOR'S ORGANIZ ATION 12/15/2021 [facility] Special[facility] DATE CREATED AUTHOR AUTHOR'S ORGANIZ ATION 01/05/2023 [facility] DATE CREATED AUTHOR AUTHOR'S ORGANIZ ATION 03/20/2023 [facility] DATE CREATED AUTHOR AUTHOR'S ORGANIZ ATION 04/15/2024 [facility] d[facility] Specialists EPIC Care Teams (unrecognized sec tion and content) Team Status: Active Member Role Status Dates Josey Youssef MD Primary Care Provider Active Team Status: Inactive Member Role Status Dates Josey Youssef MD Primary Care Provider Active S tart: March 22, 2024 End: March 22, 2024 Adeline Sampson APRN Attending Provider Active Start: March 22, 2024 End: March 22, 2024 Goals (unrecognized section and content) Goals may be documented in a n alternate section FOR RECORDS PERTAINING TO PATIENTS WHO ARE OR HAVE BEEN ENROLLED IN A CHEMICAL DEPENDENCY/SUBSTANCEABUSE PROGRAM, SOME INFORMATION MAY BE OMITTED. This clinical summary was aggregated from multiple sources. Caution should be exercised in using it in the provision of clinical care. This summary normalizes information from multiple sources, and as a consequence, information in this document may materially change the coding, format and clinical context of patient data. In addition, data may be omitted in some cases. CLINICAL DECISIONS SHOULD BE BASED ON THE PRIMARY CLINICAL RECORDS. [employer] [facility]. provides no warranty or guarantee of the accuracy or completeness of information in this document.
--- NOTE | 2024-04-18 07:28 | MM_ITS ---
Patient Name: DHARA BETTENCOURT MR#: [id number] : 1970 Exam Date: 04/18/2024 Ordering Doctor: DR SANDY YOUSSEF M.D. RADIOLOGY REPORT PROCEDURE: MM TOMOSYNTHESIS SCREENING BI COMPARISON: MG MAMM SCREEN 3D ELIANE CAD, 12/09/2021. MG MAMM SCREEN ELIANE W CAD, 10/31/2016. INDICATIONS: Screening mammogram Calculator Name NCI Breast Cancer Risk Assessment Tool 5 Year Breast Cancer Risk 0.80% Lifetime Breast Cancer Risk 6.10% Personal Breast Cancer No Personal Ovarian Cancer No Treatments None Family Cancers Mother with ovarian cancer at age 27; Grandmother-maternal with colon cancer at age 66; Grandmother-maternal with lung cancer at age 79. LOCATION: [facility] BREAST COMPOSITION: There are scattered areas of fibroglandular density. FINDINGS: DIAGNOSTIC CATEGORY 1--NEGATIVE. NO CHANGE FROM COMPARISON ASSESSMENT. Scattered benign-appearing calcifications are present. Scattered benign-appearing lymph nodes are present. RIGHT BREAST: No significant suspicious finding. LEFT BREAST: No significant suspicious finding. RECOMMENDATIONS: ROUTINE MAMMOGRAM AND CLINICAL EVALUATION IN 12 MONTHS. PLEASE NOTE: A NORMAL MAMMOGRAM DOES NOT EXCLUDE THE POSSIBILITY OF BREAST CANCER. A CLINICALLY SUSPICIOUS PALPABLE LUMP SHOULD BE BIOPSIED. Dictated by: Silver Sterling MD on 04/18/2024 at 12:09 Approved by: Silver Sterling MD on 04/18/2024 at 12:10
== END 2024-04-18 07:23 | disposition home or self-care (01) ==
LOC: MAMMO 07:22
PROVIDERS: PCP Family Medicine; Visit Provider Family Medicine
DX: Z12.31 Encounter for screening mammogram for malignant neoplasm of breast (principal); Z80.41 Family history of malignant neoplasm of ovary; Z80.1 Family history of malignant neoplasm of trachea, bronchus and lung; Z80.0 Family history of malignant neoplasm of digestive organs
CPT/HCPCS: 77063; 77067

== ENCOUNTER 2024-04-18 07:23 | Outpatient (OUT) | payer OTHER, SELFPAY ==
--- NOTE | 2024-04-18 07:26 | CT_ITS ---
The [address] [address] Patient Name: DHARA BETTENCOURT MRN: [id number] date: 1970 Sex: F Assigned Patient Location: CT Current Patient Location: CT Accession/Order Number: [id number] Exam Date: 04/18/2024 07:40 Report Date: 04/21/2024 13:25 At the request of: MELISA BLANC Procedure: CT chest wo con EXAMINATION: CT chest wo con HISTORY: Ground glass opacity present on imaging of lung R91.8 COMPARISON: 04/13/2023 TECHNIQUE: Multi-planar CT images were created with IV contrast. Axial, Coronal, and Sagittal images. Dose reduction techniques were achieved by using automated exposure control and/or adjustment of mA and/or kV according to patient size and/or use of iterative reconstruction technique. FINDINGS: LUNGS: Scattered groundglass and linear opacities are noted most significant in the right upper lobe, lingula and left lower lobes. Atelectasis and/or scar is favored. A few scattered punctate pulmonary nodules stable both in number and size from the prior exam. PLEURA: No mass, effusion, or pneumothorax. VASCULATURE: No abnormality. FUNMI: No mass or adenopathy. MEDIASTINUM: No mass or adenopathy. CARDIAC: No enlargement. Small amount of pericardial fluid felt to be within normal limits Coronary arteries: Absent AORTA: No aortic aneurysm. Minimal calcific atherosclerosis CHEST WALL: No mass or axillary adenopathy. BONES: No bone lesion or fracture. LIMITED ABDOMEN: 2 focal areas of hypodensity one in the right hepatic lobe measuring 2.46 m axial image 105 partially visualized in the second in the caudate measuring 1.8 cm axial image 102. Partially visualized 5.3 cm hyperdense lesion posterior left kidney possibly a hyperdense cyst OTHER: Negative. CT/CT chest wo con IMPRESSION: Stable scattered patchy parenchymal infiltrates and punctate nodules Partially visualized 5.3 cm hypodense lesion of the left kidney possibly a hyperdense cyst 2 focal hypodensities in the liver, nonspecific but stable Electronically authenticated by: MELYSSA PITTS Date: 04/21/2024 13:25
--- OUTSIDE RECORDS SUMMARY | 2024-04-18 07:26 | XMS_ITS | CCD ---
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 Comment on above: Performed By: #### C FLAKITO #### [facility] [address] [address] [address] Radha Galindo EGFR-AF SPANISH >60 Normal >=60 [facility] Comment on above: Performed By: #### C FLAKITO #### [facility] [address] [address] [address] Radha Galindo EGFR-NON AF SPANISH 56 mL/min/1.73m2 Critically low >=60 [facility] Comment on above: Performed By: #### C FLAKITO #### [facility] [address] [address] [address] Radha Galindo XR CHEST 2 Von [...] AURORA HERNANDEZ Date: 2022-12-27 11:35 Normal [facility] MRI LSPINE WO CONon 12-16-19 [...] BRANDON CRUZ Date: 2022-12-15 12:14 Normal [facility] RESPIRATORY PANEL PLUSon Adenovirus Not detected Normal NOT DETECTED [facility] Comment on above: Performed By: #### R SPLUS ####[facility] [address] [id number] Corona. Parapertusis Not detected Normal NOT DETECTED [facility] Comment on above: Performed By: #### R SPLUS ####[facility] [address] [id number] Corona. Pertussis Not detected Normal NOT DETECTED [facility] Comment on above: Performed By: #### R SPLUS ####[facility] [address] [address]Dr. Yiricky Galindo Chlamydia Pneumoniae Not detected Normal NOT DETECTED [facility] Comment on above: Performed By: #### R SPLUS ####[facility] T[address]hub[address] [place], [place] [address]Dr. Yiricky Galindo Coronavirus 229E Not detected Normal NOT DETECTED [facility] Comment on above: Performed By: #### R SPLUS ####[facility] W[address] [place], [place] [address]Dr. Yiricky Galindo Coronavirus HKU1 Not detected Normal NOT DETECTED [facility] Comment on above: Performed By: #### R SPLUS ####[facility] Cpwegvks[address] [place], [place] [address]Dr. Yiricky Galindo Coronavirus NL63 Not detected Normal NOT DETECTED [facility] Comment on above: Performed By: #### R SPLUS ####[facility] Z[address]crws[address] [place], [place] [address]Dr. Yiricky Galindo Coronavirus OC43 Not detected Normal NOT DETECTED [facility] Comment on above: Performed By: #### R SPLUS ####[facility] Njpws[address] [place], [place] [address]Dr. Yilan Galindo Influenza A H1 Not detected Normal NOT DETECTED [facility] Comment on above: Performed By: #### R SPLUS ####[facility] D[address] [place], [place] [address]Dr. Yiricky Galindo Influenza A H1 2009 Not detected Normal NOT DETECTED [facility] Comment on above: Performed By: #### R SPLUS ####[facility] Vobjoasq[address] [place], [place] [address]Dr. Yilan Galindo Influenza A H3 Not detected Normal NOT DETECTED [facility] Comment on above: Performed By: #### R SPLUS ####[facility] I[address] [place], [place] [address]Dr. Yiricky Galindo Influenza B Not detected Normal NOT DETECTED [facility] Comment on above: Performed By: #### R SPLUS ####[facility] Szgtuecusl[address] [place], [place] [address]Dr. Radha Galindo Metapneumovirus Not detected Normal NOT DETECTED [facility] Comment on above: Performed By: #### R SPLUS ####[facility] J[address]sew[address] [place], [place] [address]Dr. Radha Galindo Mycoplas. Pneumoniae Not detected Normal NOT DETECTED [facility] Comment on above: Performed By: #### R SPLUS ####[facility] Vyltcpeatu[address] [place], [place] [address]Dr. Radha Galindo Parainfluenza 1 Not detected Normal NOT DETECTED [facility] Comment on above: Performed By: #### R SPLUS ####[facility] H[address] [place], [place] [address]Dr. Radha Galindo Parainfluenza 2 Not detected Normal NOT DETECTED [facility] Comment on above: Performed By: #### R SPLUS ####[facility] Abrliupbcj[address] [place], [place] [address]Dr. Radha Galindo Parainfluenza 3 Not detected Normal NOT DETECTED [facility] Comment on above: Performed By: #### R SPLUS ####[facility] Gayvoemmhc[address] [place], [place] [address]Dr. Radha Galindo Parainfluenza 4 Not detected Normal NOT DETECTED [facility] Comment on above: Performed By: #### R SPLUS ####[facility] Hoik[address]zluz[address] [place], [place] [address]Dr. Judyricky Galinod Rhino/Enterovirus Not detected Normal NOT DETECTED [facility] Comment on above: Performed By: #### R SPLUS ####[facility] Kuvedaeftw[address] [place], [place] [address]Dr. Radha Galindo RP2 Header 1 RESPIRATORY PANEL: VIRUSES Normal [facility] Comment on above: Performed By: #### R SPLUS ####[facility] E[address]fw[address] [place], [place] [address]Dr. Radha Galindo RP2 Header 2 RESPIRATORY PANEL: BACTERIA Normal [facility] Comment on above: Performed By: #### R SPLUS ####[facility] [address] [place] [id number] Radha Galindo RSV Not detected Normal NOT DETECTED [facility] Comment on above: Performed By: #### R SPLUS ####[facility] [address] [address]Dr. Radha Galindo SARS-CoV-2 (COVID-19) RNA SUSAN+probe Ql (Unsp spec) Not detected Normal NOT DETECTED [facility] Comment on above: Performed By: #### R SPLUS ####[facility] [address] [address]Dr. Radha Galindo XR CHEST 2 Von 09-07-2022 [...] BRANDON CRUZ Date: 2022-09-07 12:18 Normal [facility] CBC AUTO DIFFon 05-16-2022 BASO # 0.1 103/ul Normal 0.0-0.1 [facility] Comment on above: Performed By: #### C BC ####[facility] [address] [address]Dr. Radha Galindo Basophils/100 WBC (Bld) 0.6 % Normal 0.2-2.0 [facility] Comment on above: Performed By: #### C BC ####[facility] [address] [address]Dr. Radha Galindo EO # 0.2 103/ul Normal 0.0-0.7 [facility] Comment on above: Performed By: #### C BC ####[facility] [address] [address]Dr. Radha Galindo Eosinophils/100 WBC (Bld) 1.3 % Normal 0.9-7.0 [facility] Comment on above: Performed By: #### C BC ####[facility] [address] [address]Dr. Radha Galindo Erythrocyte distribution width (RBC) [Ratio] 14.6 % Normal 11.0-15.0 [facility] Comment on above: Performed By: #### C BC ####[facility] [address] [address]Dr. Radha Galindo Hematocrit (Bld) [Volume fraction] 45.1 % Normal 36.0-48.0 [facility] Comment on above: Performed By: #### C BC ####[facility] T[address]uz[address] [place], [place] [address]Dr. Radha Galindo Hemoglobin (Bld) [Mass/Vol] 14.9 g/dL Normal 12.0-16.0 [facility] Comment on above: Performed By: #### C BC ####[facility] J[address]az[address] [place], [place] [address]Dr. Radha Galindo IG # 0.06 10e3/ul Critically high 0.00-0.03 [facility] Comment on above: Performed By: #### C BC ####[facility] Mtpiehadlo[address] [place], [place] [address]Dr. Radha Galindo IG % 0.4 % Normal 0.0-0.5 [facility] Comment on above: Performed By: #### C BC ####[facility] Tpdnljxp[address] [place], [place] [address]Dr. Radha Galindo LYMPH # 3.7 103/ul Normal 1.2-3.8 [facility] Comment on above: Performed By: #### C BC ####[facility] Diabajnqoh[address] [place], [place] [address]Dr. Radha Galindo Lymphocytes/100 WBC (Bld) 27.7 % Normal 20.5-60.0 [facility] Comment on above: Performed By: #### C BC ####[facility] L[address]zvx[address] [place], [place] [address]Dr. Radha Mateo MANUAL DIFF REQ NO Normal [facility] Comment on above: Performed By: #### C BC ####[facility] [address] [id number]. Radha Mateo MCH (RBC) [Entitic mass] 31.6 pg Normal 26.7-34.0 [facility] Comment on above: Performed By: #### C BC ####[facility] [address] [address]Dr. Judyricky Galindo MCHC (RBC) [Mass/Vol] 33.0 g/dL Normal 29.9-35.2 [facility] Comment on above: Performed By: #### C BC ####[facility] [address] [address]Dr. Radha Galindo MCV (RBC) [Entitic vol] 95.6 fL Normal 81.0-99.0 [facility] Comment on above: Performed By: #### C BC ####[facility] Q[address]os[address] [place], [place] [address]DrInna Galindo MONO # 0.7 103/ul Normal 0.3-0.8 [facility] Comment on above: Performed By: #### C BC ####[facility] K[address]rs[address] [place], [place] [address]Dr. Radha Galindo Monocytes/100 WBC (Bld) 5.3 % Normal 1.7-12.0 [facility] Comment on above: Performed By: #### C BC ####[facility] [address] [place], [place] [address]DrInna Galindo NEUT # 8.8 103/ul Critically high 1.4-6.5 [facility] Comment on above: Performed By: #### C BC ####[facility] [address] [place], [place] [address]DrInna Gailndo Neutrophils/100 WBC (Bld) 64.7 % Normal 43.0-75.0 [facility] Comment on above: Performed By: #### C BC ####[facility] [address] [address]DrInna Galindo Platelet mean volume (Bld) [Entitic vol] 9.1 fL Critically low 9.5-13.5 [facility] Comment on above: Performed By: #### C BC ####[facility] [address] [id number] Galindo PLT 318 103/ul Normal 150-450 [facility] Comment on above: Performed By: #### C BC ####[facility] [address] [id number]. Radha Galindo RBC 4.72 106/ul Normal 4.20-5.40 [facility] Comment on above: Performed By: #### C BC ####[facility] [address] [id number]. Radha Galindo WBC 13.5 103/ul Critically high 4.0-11.0 [facility] Comment on above: Performed By: #### C BC ####[facility] [address] [address]Dr. Radha Galindo CRPon 05-16-2022 CRP 0.3 mg/dL Normal <=1.0 [facility] Comment on above: Performed By: #### B MP, CRP #### [facility] [address] [address] [address] Radha Galindo PROF CHEM 8 (BAS METB)on Anion gap [Moles/Vol] 13.7 mmol/L Normal [facility] Comment on above: Performed By: #### B MP, CRP #### [facility] [address] [address] [address] Radha Galindo Calcium [Mass/Vol] 9.5 mg/dL Normal 8.5-10.1 [facility] Comment on above: Performed By: #### B MP, CRP #### [facility] [address] [place] [address] Dr. Radha Galindo Chloride [Moles/Vol] 104 mmol/L Normal 98-107 [facility] Comment on above: Performed By: #### B MP, CRP #### [facility] [address] [place] [address] Dr. Radha Galindo CO2 [Moles/Vol] 27.0 mmol/L Normal 21.0-32.0 [facility] Comment on above: Performed By: #### B MP, CRP #### [facility] [address] [address] [address] Radha Galindo Creatinine [Mass/Vol] 1.01 mg/dL Normal 0.55-1.02 [facility] Comment on above: Performed By: #### B MP, CRP #### [facility] [address] [address] [address] Radha Galindo EGFR-AF SPANISH >60 Normal >=60 [facility] Comment on above: Performed By: #### B MP, CRP #### [facility] [address] [address] [address] Radha Galindo EGFR-NON AF SPANISH 58 mL/min/1.73m2 Critically low >=60 [facility] Comment on above: Performed By: #### B MP, CRP #### [facility] [address] [address] [address] Radha Galindo Glucose [Mass/Vol] 137 mg/dL Critically high 74-106 [facility] Comment on above: Performed By: #### B MP, CRP #### [facility] [address] [address] [address] Radha Galindo Potassium [Moles/Vol] 3.7 mmol/L Normal 3.5-5.1 [facility] Comment on above: Performed By: #### B MP, CRP #### [facility] [address] [address] [address] Radha Galindo Sodium [Moles/Vol] 141 mmol/L Normal 136-145 [facility] Comment on above: Performed By: #### B MP, CRP #### [facility] [address] [address] [address] Radha Galindo Urea nitrogen [Mass/Vol] 11.0 mg/dL Normal 7.0-18.0 [facility] Comment on above: Performed By: #### B MP, CRP #### [facility] [address] [address] [address] Radha Galindo Urea nitrogen/Creatinine [Mass ratio] 10.9 mg/mg Normal [facility] Comment on above: Performed By: #### B MP, CRP #### [facility] [address] [place], [place] [address] Dr. Radha Galindo [facility] mm/hr Normal <=30 [facility] Comment on above: Performed By: #### S EDR ####[facility] [address] [place], [place] [address]LpDr. Radha Galindo Covid-19 PCR (CVDTBH)on SARS-CoV-2 (COVID-19) RNA SUSAN+probe Ql (Unsp spec) Not detected Normal NOT DETECTED [facility] Comment on above: Result Comment: This test is not yet approved or cleared by the [place] FDA. When there are no FDA-approved or cleared tests available, and other criteria are met, FDA can make tests available under an emergency access mechanism called an Emergency Use Authorization (EUA). The EUA for this test is supported by the [place] of Health and Human Service's (HHS's) declaration [...] SARS-CoV-2. Performed By: #### C VDTBH #### [facility] [address] [place], [place] [address] Dr. Radha Galindo Covid-19 PCR (CVDTBH)on 01-28 SARS-CoV-2 (COVID-19) RNA SUSAN+probe Ql (Unsp spec) Not detected Normal NOT DETECTED [facility] Comment on above: Result Comment: This test is not yet approved or cleared by the [place] FDA. When there are no FDA-approved or cleared tests available, and other criteria are met, FDA can make tests available under an emergency access mechanism called an Emergency Use Authorization (EUA). The EUA for this test is supported by the [place] of Health and Human Service's (HHS's) declaration [...] SARS-CoV-2. Performed By: #### C VDTB #### [facility] [address] [place] [address] Dr. Radha Galindo Microalbumin (with Creat)on 12-12-2021 mALB <1.2 Low [facility] Comment on above: Result Comment: Unab le to calculate mALB/Crea ratio, mALB is <1.2 mg/dL mALB reference range not established. Performed By: #### m ALBC #### [facility] [address] [place], [place] [id number] UCREA 60 mg/dL Normal 28-217 [facility] Comment on above: Performed By: #### m ALBC #### [facility] [address] [place], [place] [id number] Complete Blood Count with Au to Diffon 11-28-2021 Basophils (Bld) [#/Vol] 0.07 10*3/uL Normal 0.00-0.20 [facility] Comment on above: Performed By: #### C MP, CBCAD, VITD, LIPD #### [facility] [address] [place], [place] [id number] Basophils/100 WBC (Bld) 0.6 % Normal [facility] Comment on above: Performed By: #### C MP, CBCAD, VITD, LIPD #### [facility] [address] [place], [place] [id number] Eosinophils (Bld) [#/Vol] 0.17 10*3/uL Normal 0.02-0.50 [facility] Comment on above: Performed By: #### C MP, CBCAD, VITD, LIPD #### [facility] [address] [place], [place] [id number] Eosinophils/100 WBC (Bld) 1.4 % Normal [facility] Comment on above: Performed By: #### C MP, CBCAD, VITD, LIPD #### [facility] [address] [place], [place] [id number] Erythrocyte distribution width (RBC) [Ratio] 14.1 % Normal 11.0-15.0 [facility] Comment on above: Performed By: #### C MP, CBCAD, VITD, LIPD #### [facility] [address] [place], [place] [id number] Hematocrit (Bld) [Volume fraction] 46.1 % Normal 35.0-47.0 [facility] Comment on above: Performed By: #### C MP, CBCAD, VITD, LIPD #### [facility] [address] [place], [place] [id number] Hemoglobin (Bld) [Mass/Vol] 15.6 g/dL High 11.6-15.5 [facility] Comment on above: Performed By: #### C MP, CBCAD, VITD, LIPD #### [facility] [address] [place], [place] [id number] Lymphocytes (Bld) [#/Vol] 3.0 10*3/uL Normal 0.9-3.9 [facility] Comment on above: Performed By: #### C MP, CBCAD, VITD, LIPD #### [facility] [address] [place], [place] [id number] Lymphocytes/100 WBC (Bld) 25.9 % Normal [facility] Comment on above: Performed By: #### C MP, CBCAD, VITD, LIPD #### [facility] [address] [place], [place] [id number] MCH (RBC) [Entitic mass] 31.0 pg Normal 27.0-33.0 [facility] Comment on above: Performed By: #### C MP, CBCAD, VITD, LIPD #### [facility] [address] [place], [place] [id number] MCHC (RBC) [Mass/Vol] 33.8 g/dL Normal 32.0-36.0 [facility] Comment on above: Performed By: #### C MP, CBCAD, VITD, LIPD #### [facility] [address] [place], [place] [id number] MCV (RBC) [Entitic vol] 92 fL Normal 80-100 [facility] Comment on above: Performed By: #### C MP, CBCAD, VITD, LIPD #### [facility] [address] [place], [place] [id number] Monocytes (Bld) [#/Vol] 0.8 10*3/uL Normal 0.2-0.9 [facility] Comment on above: Performed By: #### C MP, CBCAD, VITD, LIPD #### [facility] [address] [place], [place] [id number] Monocytes/100 WBC (Bld) 6.8 % Normal [facility] Comment on above: Performed By: #### C MP, CBCAD, VITD, LIPD #### [facility] [address] [place], [place] [id number] Neutrophils (Bld) [#/Vol] 7.6 10*3/uL Normal 1.5-7.8 [facility] Comment on above: Performed By: #### C MP, CBCAD, VITD, LIPD #### [facility] [address] [place], [place] [id number] Neutrophils/100 WBC (Bld) 64.4 % Normal [facility] Specialist Comment on above: Performed By: #### C MP, CBCAD, VITD, LIPD #### [facility] [address] [place], [place] [id number] Platelet mean volume (Bld) [Entitic vol] 9.50 fL Normal 7.50-12.50 [facility] Specialist Comment on above: Performed By: #### C MP, CBCAD, VITD, LIPD #### [facility] [address] [place], [place] [id number] Platelets (Bld) [#/Vol] 304 10*3/uL Normal 140-400 [facility] Comment on above: Performed By: #### C MP, CBCAD, VITD, LIPD #### [facility] [address] [place], [place] [id number] RBC (Bld) [#/Vol] 5.03 10*6/uL Normal 3.90-5.20 [facility] Comment on above: Performed By: #### C MP, CBCAD, VITD, LIPD #### [facility] [address] [place], [place] [id number] RDW-SD 47.6 fL Normal 37.0-50.0 [facility] Comment on above: Performed By: #### C MP, CBCAD, VITD, LIPD #### [facility] [address] [place], [place] [id number] WBC (Bld) [#/Vol] 11.8 10*3/uL High 3.8-11.0 [facility] Comment on above: Performed By: #### C MP, CBCAD, VITD, LIPD #### [facility] [address] [place], [place] [id number] Comprehensive Metabolic Pane [facility] 11-28-2021 Albumin [Mass/Vol] 4.9 g/dL Normal 3.6-5.1 [facility] Comment on above: Performed By: #### C MP, CBCAD, VITD, LIPD #### [facility] [address] [place], [place] [id number] Albumin/Globulin [Mass ratio] 2.3 {ratio} Normal 1.0-2.5 [facility] Comment on above: Performed By: #### C MP, CBCAD, VITD, LIPD #### [facility] [address] [place], [place] [id number] ALP [Catalytic activity/Vol] 82 U/L Normal 35-119 [facility] Comment on above: Performed By: #### C MP, CBCAD, VITD, LIPD #### [facility] [address] [place], [place] [id number] ALT [Catalytic activity/Vol] 44 U/L High 6-33 [facility] Comment on above: Result Comment: 06/29 Female reference range changed. Performed By: #### C MP, CBCAD, VITD, LIPD #### [facility] [address] [place], [place] [id number] Anion gap [Moles/Vol] 17 mmol/L Normal 12-20 [facility] Comment on above: Result Comment: Effe ctive 08/04/2019 reference range changed. Performed By: #### C MP, CBCAD, VITD, LIPD #### [facility] [address] [place], [place] [id number] AST [Catalytic activity/Vol] 27 U/L Normal 9-34 [facility] Comment on above: Performed By: #### C MP, CBCAD, VITD, LIPD #### [facility] [address] [place], [place] [id number] Bilirubin [Mass/Vol] 0.97 mg/dL Normal 0.30-1.20 [facility] Comment on above: Performed By: #### C MP, CBCAD, VITD, LIPD #### [facility] [address] [place], [place] [id number] BUN/CREA 14 Ratio Normal 6-22 [facility] Comment on above: Performed By: #### C MP, CBCAD, VITD, LIPD #### [facility] [address] [place], [place] [id number] Calcium [Mass/Vol] 10.3 mg/dL High 8.6-10.2 [facility] Comment on above: Performed By: #### C MP, CBCAD, VITD, LIPD #### [facility] [address] [place], [place] [id number] Chloride [Moles/Vol] 101 mmol/L Normal 98-107 [facility] Comment on above: Performed By: #### C MP, CBCAD, VITD, LIPD #### [facility] [address] [place], [place] [id number] CO2 [Moles/Vol] 25 mmol/L Normal 20-31 [facility] [place] [facility] Comment on above: Performed By: #### C MP, CBCAD, VITD, LIPD #### [facility] [address] [place], [place] [id number] Creatinine [Mass/Vol] 1.0 mg/dL Normal 0.6-1.4 [facility] Specialist Comment on above: Performed By: #### C MP, CBCAD, VITD, LIPD #### [facility] [address] [place], [place] [id number] eGFRAA 75 mL/min/1.73m2 Normal >60 [facility] Comment on above: Performed By: #### C MP, CBCAD, VITD, LIPD #### [facility] [address] [place], [place] [id number] eGFRNAA 62 mL/min/1.73m2 Normal >60 [facility] Comment on above: Performed By: #### C MP, CBCAD, VITD, LIPD #### [facility] [address] [place], [place] [id number] Globulin (S) [Mass/Vol] 2.1 g/dL Normal 1.9-3.7 [facility] Specialist Comment on above: Performed By: #### C MP, CBCAD, VITD, LIPD #### [facility] [address] [place], [place] [id number] Glucose [Mass/Vol] 120 mg/dL High 65-99 [facility] Specialist Comment on above: Result Comment: For FASTING Glucose --- ADA reference ranges: Normal 65-99 mg/dl Prediabetes 100-125 Diabetes >/= 126 Performed By: #### C MP, CBCAD, VITD, LIPD #### [facility] [address] [place], [place] [id number] Potassium [Moles/Vol] 4.4 mmol/L Normal 3.5-5.5 [facility] Operations Manager Comment on above: Performed By: #### C MP, CBCAD, VITD, LIPD #### [facility] [address] [place], [place] [id number] Protein [Mass/Vol] 7.0 g/dL Normal 6.1-8.1 [facility] Operations Manager Comment on above: Performed By: #### C MP, CBCAD, VITD, LIPD #### [facility] [address] [place], [place] [id number] Sodium [Moles/Vol] 139 mmol/L Normal 135-146 [facility] Comment on above: Performed By: #### C MP, CBCAD, VITD, LIPD #### [facility] [address] [place], [place] [id number] Urea nitrogen [Mass/Vol] 13 mg/dL Normal 7-25 [facility] Comment on above: Performed By: #### C MP, CBCAD, VITD, LIPD #### [facility] [address] [place], [place] [id number] Hemoglobin A1Con 11-28-2021 EAG 131.24 Normal [facility] Comment on above: Performed By: #### A 1C #### [facility] [address] [place], [place] [id number] HbA1c (Bld) [Mass fraction] 6.2 % High 4.0-6.0 [facility] Comment on above: Performed By: #### A 1C #### [facility] [address] [place], [place] [id number] Lipid Panelon 11-28-2021 Cholesterol [Mass/Vol] 243 mg/dL High 125-200 [facility] Comment on above: Result Comment: Low risk < 200mg/dL Borderline risk 201-239 mg/dl High risk > or equal to 240 Performed By: #### C MP, CBCAD, VITD, LIPD #### [facility] [address] [place], [place] [id number] Cholesterol in HDL [Mass/Vol] 58 mg/dL Normal >40 [facility] Comment on above: Result Comment: High Cardiovascular Risk HDL <40 mg/dL Low Cardiovascular Risk HDL > or equal to 60 mg/dl Performed By: #### C MP, CBCAD, VITD, LIPD #### [facility] [address] [place], [place] [id number] Cholesterol in LDL [Mass/Vol] 154 mg/dL Normal [facility] Comment on above: Result Comment: LDL ATP III CLASSIFICATION LDL less than 100 mg/dl Optimal LDL 100-129 mg/dl Near or above optimal LDL 130-159 Borderline high LDL 160-189 High LDL greater than 189 mg/dl Very High Performed By: #### C MP, CBCAD, VITD, LIPD #### [facility] [address] [place], [place] [id number] Cholesterol in VLDL [Mass/Vol] 31 mg/dL Normal [facility] Operations Manager Comment on above: Performed By: #### C MP, CBCAD, VITD, LIPD #### [facility] [address] [place], [place] [id number] Cholesterol.total/Ch olesterol in HDL [Mass ratio] 4 {ratio} Normal [facility] Operations Manager Comment on above: Performed By: #### C MP, CBCAD, VITD, LIPD #### [facility] [address] [place], [place] [id number] Triglyceride [Mass/Vol] 154 mg/dL High 30-150 [facility] Operations Manager Comment on above: Result Comment: TRIG ATPIII CLASSIFICATIONS TRIG less than 150 mg/dl Normal TRIG 150-199 mg/dl Borderline High TRIG 200-500 mg/dl High TRIG greather than 500 mg/dl Very High Performed By: #### C MP, CBCAD, VITD, LIPD #### [facility] [address] [place], [place] [id number] Vitamin D 25-OHon 11-28-2021 VIT D 25 OH 73 ng/ml Normal >29 [facility] Operations Manager Comment on above: Result Comment: Janneth min D Status Deficiency <20 ng/mL Insufficiency 20-29 ng/mL Optimal 30-100 ng/mL Possible Toxicity >=150 ng/mL Performed By: #### C GERALDO, CBCAD, VITD, LIPD #### [facility] [address] [place], [place] [id number] Maximo 03-08-2021 CNPN Telephone (ORQ) DHARA BETTENCOURT ([id number]) 1970 F Date Time Provider Department 03/08/21 NAINA OLIVA ORCris During your visit today, we recorded the following information about you: Glennajulia Santana 03/08/2021 4:45 PM Signed Patient called requesting a refill for Diclofenac Sod ER 100 mg tab. To send to [facility] at [phone] fax [phone] Glenna Lackey Leigha Santana 03/17/2021 1:01 PM Signed Spoke to patient, she stated that got theOral Voltaren Oral Voltaren from her family doctor. 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 Allergies As of Date: 03/08/2021 Noted Allergy Reaction HYDROMORPHONE 03/04/2013 9 - Itching Date Reviewed: 12/22/2020 Reviewed by: Kirsten Vilchis - Fully Assessed Reason for Visit: Medication Question [2978] Prescriptions as of 03/17/2021 - DULoxetine (CYMBALTA) [...] Encounter Status:Closed by [facility]N [facility] ([id number]) 1970 F Date Time Provider Department 03/08/21 [...] Encounter Status:Closed by GLENNA QUINN on 03/08/21 [facility] Kobi 12-22-2020 CNOV Office Visit (ORTHMN ) DHARA BETTENCOURT ([id number]) 1970 F Date Time Provider Department 12/22/20 [...] No 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 Normal [facility] XR OUTSIDE CD DICOM IMPORT - NBNRon 11-17-2020 XR OUTSIDE CD DICOM IMPORT -NBNR Images were obtained outside of [facility] [id number] Normal [facility] XR OUTSIDE CD DICOM IMPORT -NBNR Images were obtained outside of [facility] [id number] Normal [facility] Vital Signs Date Time Vital Sign Value Performing Clinician Alex owens 03-22-2024 09:240400 Body height 165.1 cm [facility] 03-22-2024 09:240400 Body mass index (BMI) [Ratio] 35.2 kg/m2 [facility] 03-22-2024 09:24-0400 Body temperature 98 [degF] [facility] 03-22-2024 09:24-0400 Body weight 96.17 kg [facility] 03-22-2024 09:24-0400 Diastolic blood pressure 65 mm[Hg] [facility] 03-22-2024 09:24-0400 Heart rate 74 /min [facility] 03-22-2024 09:24-0400 Respiratory rate 18 /min [facility] 03-22-2024 09:24-0400 SaO2% (BldA) [Mass fraction] 94 % [facility] 03-22-2024 09:24-0400 Systolic blood pressure 132 mm[Hg] [facility] Encounters Encounter Date Encounter Type Care Provider Facility Start: 04-14-2024 End: 04-14-2024 ambulatory JOSEY YOUSSEF Not Available Start: 03-22-2024 End: 03-22-2024 ambulatory [facility] Work Phone: Start: 03-22-2024 End: 03-22-2024 Patient encounter procedure [facility] Work Phone: Start: 10-23-2023 End: 10-23-2023 ambulatory JOSEY YOUSSEF Not Available Start: 02-26-2023 End: 02-27-2023 ambulatory Yamile Lopez MD Facility:[facility] Start: 02-05-2023 End: 02-06-2023 ambulatory Yamile Lopez MD Facility:[facility] Start: 01-22-2023 End: 01-23-2023 ambulatory Yamile Lopez MD Facility:[facility] Start: 01-08-2023 End: 01-09-2023 ambulatory Yamile Lopez MD Facility:[facility] Start: 12-27-[address] JOSEY YOUSSEF Facility: [...] preprocedural laboratory examination DR AMELIA WATTS . [facility] Start: 03-07-2022 End: 03-07-[address] [...] Date Payer Category Payer Unknown 1970 Unknown [id number] 2.16.84 0.1.140034.3.579.2.593 1970 Unknown [id number] 2.16.84 0.1.593981.3.579.2.593 1970 Unknown [id number] 2.16.84 0.1.162786.3.579.2.593 1970 Unknown [id number] 2.16.84 0.1.699138.3.579.2.593 1970 Unknown [id number] 2.16.84 0.1.624138.3.579.2.593 1970 Unknown [id number] 2.16.84 0.1.707066.3.579.2.593 1970 Unknown [id number] 2.16.84 0.1.380934.3.579.2.593 1970 Unknown [id number] 2.16.84 0.1.298962.3.579.2.593 1970 Unknown [id number] 2.16.84 0.1.176775.3.579.2.593 1970 Unknown [id number] 2.16.84 0.1.022924.3.579.2.593 1970 Unknown [id number] 2.16.84 0.1.262448.3.579.2.593 1970 Unknown [id number] 2.16.84 0.1.555265.3.579.2.593 1970 Unknown [id number] 2.16.84 0.1.876444.3.579.2.593 1970 Unknown [id number] 2.16.84 0.1.165776.3.579.2.593 1970 Unknown [id number] 2.16. 840.1.427802.3.579.2.196 1970 Unknown [id number] 2.16. 840.1.999357.3.579.2.196 1970 Unknown [id number] 2.16. 840.1.090758.3.579.2.196 1970 Unknown [id number] 2.16. 840.1.573346.3.579.2.196 1970 Unknown [id number] 2.16.84 0.1.752317.3.579.2.1259 1970 Unknown [id number] 2.16.84 0.1.183841.3.579.2.1259 1959 Unknown [id number] 1960 Unknown [id number] Social History Date Type Detail Facility Start: [facility]-21-2022 [facility] Start: 1970 Sex Assigned At Female [facility] Clinical Note 12-15-2022 Note Date & Type [...] by: BRANDON CRUZ Date: 2022-12-15 08:23 [facility] Consultation note 09-07-2022 Note Date [...] indicated. Patient agrees with this plan. [facility] Consultation note 09-07-2022 Note Date [...] be followed up in the office. [facility] Consultation note 06-01-2022 Note Date [...] three months' time unless otherwise indicated. [facility] Consultation note 06-01-2022 Note Date [...] be followed up in the office. [facility] Consultation note 04-06-2022 Note Date [...] be followed up in the clinic. [facility] Consultation note 04-06-2022 Note Date [...] to continue with her multivitamin regimen. [facility] Consultation note 01-26-2022 Note Date [...] be followed up in the office post-procedure. [facility] Signed and Approved by: GRANT MCGILL . 02/02/2022 16:26:00 [facility] Progress note 12-22-2020 Note Date & Type Note Facility 12-22-2020 Note HNO ID: [id number] Author: Naina Oliva MD Service: ? 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 [facility] Evaluation note Note Date & Type Note Facility Evaluation note No assessment information availa [facility] Work Phone: Summary Purpose Family History No [...] section and content) DATE CREATED AUTHOR 08/30/2021 [facility] DATE CREATED AUTHOR AUTHOR'S ORGANIZ ATION 12/15/2021 [facility] dical Specialist DATE CREATED AUTHOR AUTHOR'S ORGANIZ ATION 01/05/2023 [facility] DATE CREATED AUTHOR AUTHOR'S ORGANIZ ATION 03/20/2023 [facility] DATE CREATED AUTHOR AUTHOR'S ORGANIZ ATION 04/15/2024 [facility] Specialists EPIC Care Teams (unrecognized sec [...] BE BASED ON THE PRIMARY CLINICAL RECORDS. [employer] [facility]. provides no warranty or guarantee of the accuracy or completeness of information in this document.
== END 2024-04-18 07:24 | disposition home or self-care (01) ==
LOC: CT 07:24
PROVIDERS: PCP Family Medicine; Visit Provider Internal Medicine
DX: Z12.31 Encounter for screening mammogram for malignant neoplasm of breast (principal); Z80.41 Family history of malignant neoplasm of ovary; Z80.1 Family history of malignant neoplasm of trachea, bronchus and lung; Z80.0 Family history of malignant neoplasm of digestive organs; R91.8 Other nonspecific abnormal finding of lung field
CPT/HCPCS: 71250; 77063; 77067

== ENCOUNTER 2025-04-23 07:47 | Outpatient (OUT) | payer OTHER, SELFPAY ==
--- OUTSIDE RECORDS SUMMARY | 2025-04-23 07:51 | XMS_ITS | CCD ---
Author Organization [facility] [place] [facility] Care Team Providers Care Healthcare Consultant Name Role Phone WATTS ., DR AMELIA [...] ., GRANT Consulting Unavailable WATTS ., DR AMLEIA Pool Attending Unavailable WATTS ., DR AMELIA [...] Unavailable ANTHONY, DR BRANDON Underwood Consulting Unavailable HEMJANEL MURRY Attending Unavailable HEMJANEL MURRY Admitting Unavailable HEMJANEL MURRY Consulting Unavailable MAC ., DR AMELIA Pool Attending Unavailable MAC ., DR AMELIA Pool Admitting Unavailable WATTS ., DR AMELIA Pool Consulting Unavailable MIKAEL, DR DELGADO Primary Care Unavailable KEVEN ESCOBEDO Consulting Unavailable Ginathalieitis , Yamile Sandoval Attending Unavailable Gileonoraraitis , Yamile Sandoval Attending Unavailable Giji GOMEZ, Yamile Sandoval Attending Unavailable Jessica GOMEZ, Yamile Sandoval Attending Unavailable MikaelJosey dumont MD Primary Care Provider JANEL CROWDER Attending Unavailable JOSEY YOUSSEF Attending Unavailable JOSEY YOUSSEF Attending Unavailable JANEL CROWDER Attending Unavailable MARNIE OCONNELL Attending Unavailable JOSEY YOUSSEF Attending Unavailable Allergies Allergy Classification Reported Allergen(s) Allergy Type Date of Onset Reaction(s) Facility (1 source) HYDROmorphone Drug Allergy 03-04-2013 [facility] Repository (20 sources) HYDROmorphone Drug Allergy 03-04-2013 Itching [facility] Medications Current Medications Medication Drug Class(es) Dates Sig (Normalized) Sig (Original) [id number] 200 actuat albuterol 0.09 mg/actuat metered dose inhaler (20 sources) beta2-Adrenergic Agonist Start: 12-21-2022 albuterol HFA 90 mcg/act inhaler 12/21/2022 Active albuterol 0.833 mg/ml / ipratropium bromide 0.167 mg/ml inhalation solution (19 sources) Anticholinergic, beta2-Adrenergic Agonist Start: 09-30-2023 ipratropium-albute rol (Duo-Neb) 0.5-2.5 mg/3 mL nebulizer solution 09/30/2023 Active ALPRAZolam 0.5 mg oral tablet (20 sources) Benzodiazepine Start: 04-14-2024 End: 04-15-2025 take 1 tablet by mouth once daily in the morning, then take 1 tablet by mouth once daily at bedtime ALPRAZolam (Xanax) 0.5 MG tablet Indications: Anxiety TAKE 1 TABLET BY MOUTH EVERY MORNING AND TAKE 1 TABLET BY MOUTH EVERY NIGHT AT BEDTIME 60 tablet 03/16/2025 04/15/2025 Active amLODIPine 5 mg oral tablet (20 sources) Dihydropyridine Calcium Channel Reyes Start: 04-07-2025 End: 05-07-2025 take 1 tablet by mouth once daily amLODIPine (Norvasc) 5 MG tablet Indications: Essential hypertension Take 1 tablet (5 mg) by mouth Daily 04/07/2025 05/07/2025 Active Start: 08-19-2024 End: 04-07-2025 take 1 tablet by mouth once daily amLODIPine (Norvasc) 10 MG tablet Indications: Essential hypertension TAKE 1 TABLET BY MOUTH DAILY 100 tablet 3 08/19/2024 04/07/2025 Discontinued (Reorder) Start: 08-14-2023 take 1 tablet by [place] th once daily amLODIPine (Norvasc) 10 MG tablet Indications: Essential hypertension (CMS/HCC) TAKE ONE TABLET BY MOUTH DAILY 100 tablet 3 08/14/2023 Active aspirin 81 mg delayed release oral tablet (20 sources) Platelet Aggregation Inhibitor, Nonsteroidal Anti-inflammatory Drug aspirin 81 MG EC tablet 1 (one) time each day at the same time. Active atorvastatin 40 mg oral tablet (20 sources) HMG-CoA Reductase Inhibitor Start: 2024 take 1 tablet by mouth once daily atorvastatin (Lipitor) 40 MG tablet Indications: Hypertriglyceridemia TAKE 1 TABLET BY MOUTH DAILY 100 tablet 3 08/19/2024 Active Start: 02-11-2024 take 1 tablet by [place] th once daily atorvastatin (Lipitor) 40 MG tablet Indications: Hypertriglyceridemia (CMS/HCC) TAKE 1 TABLET BY MOUTH DAILY 100 tablet 1 02/11/2024 Active azithromycin 250 mg oral tablet (4 sources) Macrolide Antimicrobial Start: 08-05-2024 End: 08-17-2024 take 2 tablets by mouth once daily, then take 1 tablet by mouth once daily azithromycin (Zithromax) 250 MG tablet Indications: Pansinusitis, unspecified chronicity Take 2 tablets (500 mg) by mouth Daily for 1 day, THEN 1 tablet (250 mg) Daily for 4 days. 6 tablet 08/12/2024 08/17/2024 Active Calcium Carbonate-Vit D-Min (CALCIUM 1200 PO) (7 sources) Calcium Carbonate-Vit D-Min (CALCIUM 1200 PO) Take 2 tablets by mouth Daily Active cyclobenzaprine hydrochloride 5 mg oral tablet (20 sources) Muscle Relaxant Start: 02-02-2025 take 1 tablet by mouth three times daily cyclobenzaprine (Flexeril) 5 MG tablet Indications: Tremors of nervous system TAKE 1 TABLET BY MOUTH 3 TIMES A DAY 90 tablet 1 02/02/2025 Active Start: 11-24-2024 take 1 tablet by [place] th three times daily cyclobenzaprine (Flexeril) 5 MG tablet Indications: Tremors of nervous system TAKE 1 TABLET BY MOUTH 3 TIMES A DAY 90 tablet 1 11/24/2024 Active Start: 07-07-2024 End: 11-24-2024 take 1 tablet by mouth three times daily cyclobenzaprine (Flexeril) 5 MG tablet Indications: Tremors of nervous system TAKE 1 TABLET BY MOUTH 3 TIMES A DAY 90 tablet 1 07/07/2024 11/24/2024 Discontinued Start: 04-22-2024 take 1 tablet by [place] th three times daily cyclobenzaprine (Flexeril) 5 MG tablet Indications: Tremors of nervous system TAKE 1 TABLET BY MOUTH 3 TIMES A DAY 90 tablet 1 04/22/2024 Active Start: 03-22-2024 take 5 mg by mouth o nce daily at bedtime Cyclobenzaprine Active 5 MG PO Daily at bedtime March 22, 2024 12:00am Start: 11-26-2023 take 1 tablet by [place] th three times daily cyclobenzaprine (Flexeril) 5 MG tablet Indications: Tremors of nervous system TAKE ONE TABLET BY MOUTH THREE TIMES A DAY 90 tablet 1 11/26/2023 Active Dextromethorphan-buPROPion ER (Auvelity) 45-105 MG tablet controlled-release (2 sources) Start: 04-07-2025 End: 05-07-2025 take 45-105 mg by mouth once daily Dextromethorphan-buPROPion ER (Auvelity) 45-105 MG tablet controlled-release Indications: Major depressive disorder, single episode, mild Take 1 tablet by mouth Daily 30 tablet 04/07/2025 05/07/2025 Active 24 hr diclofenac sodium 100 mg extended release oral tablet (20 sources) Nonsteroidal Anti-inflamma tory Drug Start: 12-29-2024 take 1 tablet by mouth once daily diclofenac sodium (Voltaren XR) 100 mg 24 hr tablet Indications: Dizziness TAKE 1 TABLET BY MOUTH DAILY 30 tablet 2 12/29/2024 Active Start: 09-15-2024 take 1 tablet by [place] th once daily diclofenac sodium (Voltaren XR) 100 mg 24 hr tablet Indications: Dizziness TAKE 1 TABLET BY MOUTH DAILY 30 tablet 2 09/15/2024 Active Start: 03-22-2024 End: 03-22-2024 Diclofenac Sodium Discontinu ed MG PO March 22, 2024 12:00am March 22, 2024 9:35am Start: 02-11-2024 take 1 tablet by [place] th once daily diclofenac sodium (Voltaren XR) 100 mg 24 hr tablet Indications: Dizziness TAKE 1 TABLET BY MOUTH DAILY 100 tablet 1 02/11/2024 Active docosahexaenoic acid 120 mg / eicosapentaenoic acid 180 mg oral capsule (20 sources) omega-3 (fish oil) 1000 MG capsule 1 capsule 1 (one) time each day at the same time. Active DULoxetine 30 mg delayed release oral capsule (20 sources) Serotonin and Norepinephrine Reuptake Inhibitor Start: 02-17-20 take 1 capsule by mouth once daily DULoxetine (Cymbalta) [address] capsule Indications: Depressive disorder Take 1 capsule (30 mg) by mouth Daily 100 capsule 3 02/16/2025 Active Start: 10-20-2024 take 1 capsule by mo uth once daily DULoxetine (Cymbalta) [address] capsule Indications: Depressive disorder (CMS/HCC) TAKE 1 CAPSULE BY MOUTH DAILY 30 capsule 2 10/20/2024 Active Start: 08-19-2024 take 1 capsule by mo uth once daily DULoxetine (Cymbalta) [address] capsule Indications: Depressive disorder TAKE 1 CAPSULE BY MOUTH DAILY 100 capsule 3 08/19/2024 Active Start: 07-21-2024 take 1 capsule by mo uth once daily DULoxetine (Cymbalta) [address] capsule Indications: Depressive disorder (CMS/HCC) TAKE 1 CAPSULE BY MOUTH DAILY 30 capsule 2 07/21/2024 Active Start: 04-18-2024 take 1 capsule by mo uth once daily DULoxetine (Cymbalta) [address] capsule Indications: Depressive disorder (CMS/HCC) TAKE 1 CAPSULE BY MOUTH DAILY 30 capsule 2 04/18/2024 Active Start: 02-11-2024 take 1 capsule by mo ut once daily DULoxetine (Cymbalta) [address] capsule Indications: Depressive disorder (CMS/HCC) TAKE 1 CAPSULE BY MOUTH DAILY 100 capsule 1 02/11/2024 Active Start: 12-31-2023 take 30 mg by mouth once daily Duloxetine Active 30 MG PO Daily March 22, 2024 12:00am in addition to 60mg 30 actuat fluticasone furoate 0.1 mg/actuat / umeclidinium 0.0625 mg/actuat / vilanterol 0.025 mg/actuat dry powder inhaler (12 sources) Anticholinergic, Corticosteroid, beta2-Adrenergic Agonist Start: 02-01-2023 End: 08-12-2024 take 1 puff(s) by inhalation in the morning Ralyprllekd-Yxwofrbmr-Pnoekl (Trelegy Ellipta) 100-62.5-25 MCG/ACT aerosol powder Indications: Acute exacerbation of chronic obstructive pulmonary disease (CMS/HCC) Inhale 1 puff in the morning. 1 each 02/01/2023 08/12/2024 Discontinued (Therapy completed) furosemide 20 mg oral tablet (20 sources) Loop Diuretic Start: 11-04-2024 take 1 tablet by mouth once daily furosemide (Lasix) 20 MG tablet Indications: Essential hypertension TAKE 1 TABLET(20 MG) BY MOUTH DAILY 100 tablet 1 11/04/2024 Active Start: 02-11-2024 End: 04-14-2024 take 1 tablet by mouth once daily furosemide (Lasix) 20 MG tablet Indications: Essential hypertension (CMS/HCC) Take 1 tablet (20 mg) by mouth Daily 100 tablet 1 04/14/2024 Active gabapentin 300 mg oral capsule (11 sources) Anti-epileptic Agent Start: 09-11-2024 End: 09-21-2024 take 1 capsule by mouth in the morning, then take 1 capsule by mouth in the evening, then take 1 capsule by mouth at bedtime gabapentin (Neurontin) 300 MG capsule Indications: Herpes zoster without complication Take 1 capsule (300 mg) by mouth in the morning and 1 capsule (300 mg) in the evening and 1 capsule (300 mg) before bedtime. Do all this for 10 days. 30 capsule 09/11/2024 Active Start: 12-16-2022 End: 04-28-2024 gabapentin (Neurontin) 300 M G capsule 12/16/2022 04/28/2024 Discontinued (Other) loratadine 10 mg oral tablet (20 sources) loratadine (Clar itin) 10 MG tablet 1 (one) time each day at the same time. Active metFORMIN hydrochloride 500 mg oral tablet (20 sources) Biguanide Start: take 1 tablet by mouth once daily at mealtime metFORMIN (Glucophage) 500 MG tablet Indications: Hypertriglyceridemia TAKE 1 TABLET BY MOUTH DAILY WITH A MEAL 100 tablet 3 08/19/2024 Active Start: 02-11-2024 take 1 tablet by [place] th once daily at mealtime metFORMIN (Glucophage) 500 MG tablet Indications: Hypertriglyceridemia (CMS/HCC) TAKE ONE TABLET BY MOUTH DAILY WITH A MEAL 100 tablet 1 02/11/2024 Active methylPREDNISolone (2 sources) Corticosteroid Start: 08-12-2024 End: 08-19-2024 methylPREDNISolone (Medrol Dospak) 4 MG tablets Indications: Pansinusitis, unspecified chronicity Follow schedule on package instructions 21 tablet 08/12/2024 08/19/2024 Active montelukast 10 mg oral tablet (19 sources) Leukotriene Receptor Antagonist Start: 09-16-2023 montelukast (Singulair) 10 MG tablet 09/16/2023 Active yvifhnsahruf-yros-usjrum ls-folic acid (Centrum Silver, geriatric,) tablet (20 sources) multivitamin-iro n-property insurance claims examiner als-folic acid (Centrum Silver, geriatric,) tablet as directed Orally Active nystatin [id number] unt/ml oral suspension (20 sources) Polyene Antifungal Start: 09-07-2022 nystatin (Mycostatin) [id number] UNIT/ML suspension 09/07/2022 Active ofloxacin 3 mg/ml ophthalmic solution (6 sources) Quinolone Antimicrobial Start: 03-22-2024 End: 04-28-2024 ofloxacin (Ocuflox) 0.3 % ophthalmic solution Four times daily 03/22/2024 04/28/2024 Discontinued (Therapy completed) Start: 03-22-2024 take 1 drop(s) into the eye(s) four times daily Ofloxacin Active 2 DROPS OPHTHALMIC Four times daily 12 03March 22, 2024 12:00am right eye OLANZapine 10 mg oral tablet (20 sources) Atypical Antipsychotic Start: 08-19-2024 take 1 tablet by mouth once daily OLANZapine (ZyPREXA) 10 MG tablet Indications: Adjustment disorder with anxiety TAKE 1 TABLET BY MOUTH DAILY 100 tablet 3 08/19/2024 Active Start: 02-11-2024 take 1 tablet by [place] th once daily OLANZapine (ZyPREXA) 10 MG tablet Indications: Adjustment disorder with anxiety (CMS/HCC) TAKE 1 TABLET BY MOUTH DAILY 100 tablet 1 02/11/2024 Active omeprazole 40 mg delayed release oral capsule (19 sources) Proton Pump Inhibitor Start: 04-14-2024 End: 07-23-2024 take 1 capsule by mouth once daily before mealtime omeprazole (PriLOSEC) [address] capsule Indications: Gastroesophageal reflux disease without esophagitis TAKE 1 CAPSULE BY MOUTH EVERY MORNING BEFORE MEALS, DO NOT CRUSH OR CHEW 100 capsule 3 07/21/2024 Active ondansetron 4 mg oral tablet (11 sources) Serotonin-3 Receptor Antagonist Start: 01-17-2024 End: 08-12-2024 take 1 tablet by mouth every six hours as needed for nausea and vomiting ondansetron (Zofran) 4 MG tablet TAKE 1 TABLET BY MOUTH EVERY 6 HOURS NEEDED FOR NAUSEA AND VOMITING 01/17/2024 08/12/2024 Discontinued (Therapy completed) Ozempic, 1 MG/DOSE, 4 MG/3ML solution pen-injector (4 sources) Start: 10-09-2024 End: 04-07-2025 Ozempic, 1 MG/DOSE, 4 MG/3ML solution pen-injector 10/09/2024 04/07/2025 Discontinued (Therapy completed) Start: 10-09-2024 Ozempic, 1 MG/ DOSE, 4 MG/3ML solution pen-injector 10/09/2024 Active potassium chloride 10 meq extended release oral tablet (20 sources) potassium chlori de CR (Klor-Con) 10 MEQ ER tablet every 12 (twelve) hours. Active rimegepant 75 mg disintegrating oral tablet (20 sources) Start: 12-29-2024 take 1 tablet by mouth every other day Rimegepant Sulfate (Nurtec) 75 MG tablet dispersible Indications: Migraine without aura and without status migrainosus, not intractable DISSOLVE 1 TABLET BY MOUTH EVERY OTHER DAY FOR PREVENTATIVE 15 tablet 2 12/29/2024 Active Start: 10-23-2023 Rimegepant Sul fate (Nurtec) 75 MG tablet dispersible Indications: Migraine without aura and without status migrainosus, not intractable (CMS/HCC) Take 1 every other day for preventative 30 tablet 11 10/23/2023 Active Semaglutide (1 source) Start: 03-22-2024 inject 1 mg by subcutaneous injection every week Semaglutide (Ozempic) 1 mg/dose (4 mg/3 mL) pen injector Active 1 MG SUBCUT every week March 22, 2024 12:00am 1 mg dose 1.5 ml semaglutide 1.34 mg/ml pen injector (20 sources) Start: 11-05-2024 End: 04-07-2025 inject 1 mg by subcutaneous injection every week semaglutide (Ozempic, 1 MG/DOSE,) 2 MG/1.5ML solution pen-injector Indications: Type 2 diabetes mellitus without complication, without long-term current use of insulin ([facility]) Inject 1 mg under the skin 1 (one) time per week 3 mL 5 11/05/2024 04/07/2025 Discontinued (Therapy completed) Start: 10-23-2023 End: 04-28-2024 inject 1 mg by subcutaneous injection every week semaglutide (Ozempic, 1 MG/DOSE,) 2 MG/1.5ML solution pen-injector Indications: Type 2 diabetes mellitus without complication, without long-term current use of insulin (CMS/HCC) Inject 1 mg under the skin 1 (one) time per week 3 mL 5 04/28/2024 Active Semaglutide, 2 MG/DOSE, 8 MG/3ML solution pen-injector (2 sources) Start: 04-07-2025 End: 07-16-2025 inject 2 mg by subcutaneous injection every week Semaglutide, 2 MG/DOSE, 8 MG/3ML solution pen-injector Indications: Type 2 diabetes mellitus with diabetic nephropathy, without long-term current use of insulin (HCC) Inject 2 mg under the skin 1 (one) time per week 9 mL 04/07/2025 07/16/2025 Active traMADol hydrochloride 50 mg oral tablet (20 sources) Opioid Agonist Start: 02-22-2023 take 1 tablet by mouth four times daily as needed traMADol (Ultram) 50 MG tablet Indications: Other chronic pain TAKE ONE TABLET BY MOUTH FOUR TIMES A DAY NEEDED 120 tablet 02/22/2023 Active valACYclovir 1000 mg oral tablet (3 sources) Herpesvirus Nucleoside Analog DNA Polymerase Inhibitor, Herpes Simplex Virus Nucleoside Analog DNA Polymerase Inhibitor, Herpes Zoster Virus Nucleoside Analog DNA Polymerase Inhibitor Start: 09-11-2024 End: 09-18-2024 take 1 tablet by mouth in the morning, then take 1 tablet by mouth in the evening, then take 1 tablet by mouth at bedtime valACYclovir (Valtrex) 1 g tablet Indications: Herpes zoster without complication Take 1 tablet (1,000 mg) by mouth in the morning and 1 tablet (1,000 mg) in the evening and 1 tablet (1,000 mg) before bedtime. Do all this for 7 days. 21 tablet 09/11/2024 09/18/2024 Active zinc gluconate 50 mg oral tablet (7 sources) take 1 tablet by mouth once daily zinc gluconate 50 MG tablet Take 50 mg by mouth Daily Active Problems Active Problems Problem Classification Problem Date Documented Da te Episodic/Chronic Adjustment disorders (20 sources) Adjustment disorder with anxious mood; Translations: [Adjustment disorder with anxiety] Onset: 3 12-26-2022 Chronic Anxiety disorders (7 sources) Anxiety; Translations: [Anxiety disorder, unspecified] 06-18-2024 Chronic Asthma (20 sources) Asthma; Translations: [Unspecified asthma, uncomplicated] Onset: 3 12-26-2022 Chronic Chronic kidney disease (20 sources) Chronic kidney disease stage 3A ; Translations: [Stage 3a chronic kidney disease (HCC)] Onset: 3 12-26-2022 Chronic Chronic obstructive pulmonary disease and bronchiectasis (20 sources) Emphysematous bronchitis; 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] Onset: 3 Resolved: 4 04-28-2024 Chronic Complications of surgical procedures or medical care (20 sources) Postsurgical menopause; Translations: [Asymptomatic postprocedural ovarian failure] Onset: 3 12-26-2022 Chronic Diabetes mellitus with complications (20 sources) Renal disorder due to type 2 diabetes mellitus; Translations: [Type 2 diabetes mellitus with diabetic nephropathy] Onset: 4 04-14-2024 Chronic Diabetes mellitus without complication (20 sources) Type 2 diabetes mellitus; Translations: [Type 2 diabetes mellitus without complications] Onset: 3 12-26-2022 Chronic Disorders of lipid metabolism (20 sources) Hyperlipidemia; Translations: [Hyperlipidemia, unspecified] Onset: 3 03-22-2024 Chronic Esophageal disorders (2 sources) Gastroesophageal reflux disease without esophagitis; Translations: [Gastro-esophageal reflux disease without esophagitis] 04-14-2024 Chronic Essential hypertension (20 sources) Hypertensive disorder; Translations: [Essential (primary) hypertension] Onset: 3 03-22-2024 Chronic Headache; including migraine (20 sources) Migraine without aura, not refractory ; Translations: [Migraine without aura, not intractable, without status migrainosus] Onset: 3 Resolved: 4 12-26-2022 Chronic Immunizations and screening for infectious disease (2 sources) Vaccination needed; Translations: [Encounter for immunization] 04-28-2024 Episodic Menopausal disorders (20 sources) Menopausal flushing; Translations: [Menopausal and female climacteric states] Onset: 3 12-26-2022 Chronic Mood disorders (20 sources) Depressive disorder; Translations: [Depression] Onset: 3 03-22-2024 Chronic Other gastrointestinal disorders (20 sources) Irritable bowel syndrome with diarrhea; Translations: [Irritable bowel syndrome with diarrhea] Onset: 3 12-26-2022 Chronic Other inflammatory condition of skin (20 sources) Psoriasis; Translations: [Psoriasis, unspecified] Onset: 3 12-26-2022 Chronic Other nervous system disorders (1 source) Other chronic pain; Translations: [OTHER CHRONIC PAIN] Onset: 2 Chronic Other nervous system disorders (20 sources) Chronic pain; Translations: [Other chronic pain] Onset: 3 12-26-2022 Chronic Other nervous system disorders (20 sources) Left-sided piriformis syndrome; Translations: [Lesion of sciatic nerve, left lower limb] Onset: 3 12-26-2022 Chronic Other nervous system disorders (20 sources) Sciatic nerve lesion; Translations: [Lesion of sciatic nerve, unspecified lower limb] Onset: 7 12-26-2022 Chronic Other nervous system disorders (1 source) Tremor; Translations: [Tremor, unspecified] 11-23-2024 Episodic Other nutritional; endocrine; and metabolic disorders (20 sources) Obesity caused by energy imbalance; Translations: [Morbid (severe) obesity due to excess calories] Onset: 3 04-14-2024 Chronic Other nutritional; endocrine; and metabolic disorders (1 source) Morbid obesity; Translations: [Morbid (severe) obesity due to excess calories] Onset: 3 12-26-2022 Chronic Other screening for suspected conditions (not mental disorders or infectious disease) (2 sources) Patient encounter status; Translations: [Encounter for screening mammogram for malignant neoplasm of breast] 04-14-2024 Episodic Other upper respiratory disease (20 sources) Allergic rhinitis; Translations: [Allergic rhinitis, unspecified] Onset: 3 12-26-2022 Chronic Other upper respiratory disease (2 sources) Allergic rhinitis due to pollen; Translations: [Allergic rhinitis due to pollen] 04-28-2024 Chronic Other upper respiratory infections (2 sources) Pansinusitis; Translations: [Chronic pansinusitis] 08-12-2024 Chronic Peripheral and visceral atherosclerosis (2 sources) Atherosclerosis of aorta; Translations: [Atherosclerosis of aorta] 04-14-2024 Chronic Screening and history of mental health and substance abuse codes (2 sources) Ex-smoker; Translations: [Personal history of nicotine dependence] 09-11-2024 Episodic Spondylosis; intervertebral disc disorders; other back problems (20 sources) Spondylosis without myelopathy or radiculopathy, lumbar region; Translations: [Sacroiliitis, not elsewhere classified] Onset: 2 Chronic Spondylosis; intervertebral disc disorders; other back problems (8 sources) Lumbago with sciatica, left side; Translations: [Intervertebral disc disorders with radiculopathy, lumbar region] Onset: 2 04-07-2025 Episodic Unclassified (1 source) CONTACT W/AND (SUSP) EXPOS COVID-19; Translations: [CONTACT W/AND (SUSP) EXPOS COVID-19] Onset: 3 Unclassified (1 source) ACUTE COUGH; Translations: [ACUTE COUGH] Onset: 3 Unclassified (3 sources) LOW BACK PAIN, UNSPECIFIED; Translations: [LOW BACK PAIN, UNSPECIFIED] Onset: 2 Unclassified (2 sources) Patient on antidepressant monitoring plan Onset: 5 04-07-2025 Unclassified (2 sources) Baseline PHQ-9 Onset: 5 04-07-2025 Viral infection (2 sources) Herpes zoster without complication; Translations: [Zoster without complications] 09-11-2024 Episodic Past or Other Problems Problem Classification Problem Date Documented Da te Episodic/Chronic Coma; stupor; and brain damage (20 sources) Daytime somnolence; Translations: [Somnolence] Onset: 12-26-2022 12-26-2022 Episodic Conditions associated with dizziness or vertigo (20 sources) Dizziness; Translations: [Dizziness and giddiness] Onset: 04-09-2023 04-09-2023 Episodic Diabetes mellitus without complication (20 sources) Prediabetes; Translations: [Prediabetes] Onset: 12-26-2022 Resolved: 04-28-2024 03-22-2024 Episodic Other acquired deformities (20 sources) Leg length inequality; Translations: [Unequal limb length (acquired), unspecified site] Onset: 12-26-2022 12-26-2022 Episodic Other aftercare (1 source) Other halfway (current) drug therapy; Translations: [OTH SKILLED NURSING CURRENT DRUG THERAPY] Onset: 05-17-2022 Episodic Other aftercare (20 sources) Long-term current use of inhaled steroid; Translations: [correction (current) use of inhaled steroids] Onset: 04-05-2023 04-05-2023 Episodic Other circulatory disease (20 sources) Elevated blood-pressure reading without diagnosis of hypertension; Translations: [Elevated blood-pressure reading, without diagnosis of hypertension] Onset: 12-26-2022 Resolved: 04-14-2024 04-14-2024 Episodic Other circulatory disease (20 sources) Elevated blood pressure; Translations: [Elevated blood-pressure reading, without diagnosis of hypertension] Onset: 12-26-2022 Resolved: 04-28-2024 04-28-2024 Episodic Other connective tissue disease (5 sources) Other muscle spasm; Translations: [OTHER MUSCLE SPASM] Onset: 06-01-2022 Episodic Other diseases of kidney and ureters (7 sources) Cyst of kidney; Translations: [Cyst of kidney, acquired] Onset: 09-11-2024 09-11-2024 Episodic Other lower respiratory disease (1 source) Wheezing; Translations: [WHEEZING] Onset: 09-11-2022 Episodic Other lower respiratory disease (20 sources) Lung field abnormal; Translations: [Other nonspecific abnormal finding of lung field] Onset: 04-05-2023 04-05-2023 Episodic Other nutritional; endocrine; and metabolic disorders (20 sources) Obese class I; Translations: [Obesity (BMI 30.0-34.9)] Onset: 12-26-2022 Resolved: 04-28-2024 04-28-2024 Chronic Other nutritional; endocrine; and metabolic disorders (20 sources) Body mass index 30+ - obesity; Translations: [Body mass index (BMI) 37.0-37.9, adult] Onset: 04-14-2024 Resolved: 04-28-2024 04-28-2024 Chronic Residual codes; unclassified (4 sources) Pain, unspecified; [...] [ACQUIRED ABSENCE OVARIES UNILATERAL] Onset: 05-17-2022 Episodic Residual codes; unclassified (20 sources) Flushing; Translations: [Flushing] Onset: 05-30-2023 Resolved: 04-28-2024 04-28-2024 Episodic Substance-related disorders (20 sources) Nicotine dependence, cigarettes, uncomplicated; Translations: [Smoker] Onset: 05-17-2022 Resolved: 09-11-2024 12-26-2022 Chronic Unclassified (1 source) LOW BACK PAIN, UNSPECIFIED; Translations: [LOW BACK PAIN, UNSPECIFIED] Onset: 05-16-2022 Results Test Name Value Interpretation Reference Range Facility Laboratory - Hematology and Cell countson 04-07-2025 HbA1c (Bld) [Mass fraction] 5.5 % [facility] No Panel Informationon 04-07 Interpretation and review of laboratory results [facility] ALBUMIN, RANDOM URINE W/CREA TININEon 09-12-2024 ALBUMIN, URINE 0.4 mg/dL Normal See Note: [facility] Comment on above: Result Comment: Refe rence Range: Reference Range Not established Performed By: #### 6 517 #### [facility] [address], [address] [place] [address] Billet Shearer: Christiano Escobar MD ALBUMIN/CREATININE RATIO, RANDOM URINE 9 mg/g creat Normal <30 [facility] Comment on above: Result Comment: The ADA defines abnormalities in albumin excretion as follows: Albuminuria Category Result (mg/g creatinine) Normal to Mildly increased <30 Moderately increased 30-299 Severely increased > OR = 300 The ADA recommends that at least two of three specimens collected within a 3-6 month period be abnormal before considering a patient to be within a diagnostic category. Performed By: #### 6 517 #### [facility] [address], [address] [place] [address] Billet Shearer: Christiano Escobar MD Creatinine (U) [Mass/Vol] 47 mg/dL Normal 20-275 [facility] Comment on above: Performed By: #### 6 517 #### [facility] [address], [address] [place] [address] Billet Shearer: Christiano Escobar MD Microalbumin/Creatinine rati o panel (U)on 09-12-2024 Albumin DL <= 20 mg/L (U) [Mass/Vol] 0.4 mg/dL See Note: [facility] are Comment on above: Reference Range: Reference Range Not established Albumin/Creatinine (U) [Mass ratio] 9 NINF [facility] [employer] Comment on above: The ADA defines abnormalities in albumin excretion as follows: Albuminuria Category Result (mg/g creatinine) Normal to Mildly increased <30 Moderately increased 30-299 Severely increased > OR = 300 The ADA recommends that at least two of three specimens collected within a 3-6 month period be abnormal before considering a patient to be within a diagnostic category. Creatinine (U) [Mass/Vol] 47 mg/dL 20 - 275 mg/dL [facility] [employer] Performing Organization Information Site ID: QPT Name: [facility] Address: [address] [place] [address], [address] [place] [phone] Director: Christiano Escobar MD [facility] [employer] Laboratory - Hematology and Cell countson 04-14-2024 HbA1c (Bld) [Mass fraction] 5.7 % [facility] [employer] No Panel Informationon 04-14 Interpretation and review of laboratory results Normal [facility] [employer] CREATININEon 12-27-2022 Creatinine [Mass/Vol] 1.03 mg/dL Critically high 0.55-1.02 [facility] Comment on above: Performed By: #### C FLAKITO #### [facility] [address] [address] [address] Radha Galindo EGFR-AF UZBEK >60 Normal >=60 [facility] Comment on above: Performed By: #### C FLAKITO #### [facility] [address] [address] [address] Radha Galindo EGFR-NON AF UZBEK 56 mL/min/1.73m2 Critically low >=60 [facility] Comment on above: Performed By: #### C FLAKITO #### [facility] [address] [address] [address] Radha Galindo XR CHEST 2 Von [...] AURORA HERNANDEZ Date: 2022-12-27 11:35 Normal [facility] MRI LSPINE WO CONon 12-16-19 23 MRI [place] WO CON EXAMINATION: MRI LSSHAHRZAD WO CON HISTORY: Lumbar spondylosis ; chronic [...] BRANDON CRUZ Date: 2022-12-15 12:14 Normal [facility] RESPIRATORY PANEL PLUSon Adenovirus Not detected Normal NOT DETECTED [facility] Comment on above: Performed By: #### R SPLUS ####[facility] [address] [address]Dr. Radha Galindo B. Parapertusis Not detected Normal NOT DETECTED [facility] Comment on above: Performed By: #### R SPLUS ####[facility] [address] [address]Dr. Radha Galindo B. Pertussis Not detected Normal NOT DETECTED [facility] Comment on above: Performed By: #### R SPLUS ####[facility] [address] [address]Dr. Radha Galindo Chlamydia Pneumoniae Not detected Normal NOT DETECTED [facility] Comment on above: Performed By: #### R SPLUS ####[facility] Z[address] [place], [place] [address]Dr. Radha Galindo Coronavirus 229E Not detected Normal NOT DETECTED [facility] Comment on above: Performed By: #### R SPLUS ####[facility] Zroxcrosax[address] [place], [place] [address]Dr. ricky Galindo Coronavirus HKU1 Not detected Normal NOT DETECTED [facility] Comment on above: Performed By: #### R SPLUS ####[facility] U[address] [place], [place] [address]Dr. Radha Galindo Coronavirus NL63 Not detected Normal NOT DETECTED [facility] Comment on above: Performed By: #### R SPLUS ####[facility] U[address] [place], [place] [address]Dr. Radha Galindo Coronavirus OC43 Not detected Normal NOT DETECTED [facility] Comment on above: Performed By: #### R SPLUS ####[facility] [address] [place], [place] [address]Dr. Radha Galindo Influenza A H1 Not detected Normal NOT DETECTED [facility] Comment on above: Performed By: #### R SPLUS ####[facility] Ed[address] [place], [place] [address]Dr. Radha Galindo Influenza A H1 2009 Not detected Normal NOT DETECTED [facility] Comment on above: Performed By: #### R SPLUS ####[facility] H[address] [place], [place] [id number]. Radha Galindo Influenza A H3 Not detected Normal NOT DETECTED [facility] Comment on above: Performed By: #### R SPLUS ####[facility] [address] [address]Dr. Radha Galindo Influenza B Not detected Normal NOT DETECTED [facility] Comment on above: Performed By: #### R SPLUS ####[facility] [address] [address]Dr. Radha Galindo Metapneumovirus Not detected Normal NOT DETECTED [facility] Comment on above: Performed By: #### R SPLUS ####[facility] Fa[address]ksc[address] [place], [place] [address]Dr. Radha Galindo Mycoplas. Pneumoniae Not detected Normal NOT DETECTED [facility] Comment on above: Performed By: #### R SPLUS ####[facility] [address] [place], [place] [address]Dr. Radha Galindo Parainfluenza 1 Not detected Normal NOT DETECTED [facility] Comment on above: Performed By: #### R SPLUS ####[facility] [address] [place], [place] [address]Dr. Radha Galindo Parainfluenza 2 Not detected Normal NOT DETECTED [facility] Comment on above: Performed By: #### R SPLUS ####[facility] [address] [place], [place] [address]Dr. Radha Galindo Parainfluenza 3 Not detected Normal NOT DETECTED [facility] Comment on above: Performed By: #### R SPLUS ####[facility] Mid[address]hecc[address] [place], [place] [address]Dr. Radha Galindo Parainfluenza 4 Not detected Normal NOT DETECTED [facility] Comment on above: Performed By: #### R SPLUS ####[facility] F[address] [place], [place] [address]Dr. Radha Galindo Rhino/Enterovirus Not detected Normal NOT DETECTED [facility] Comment on above: Performed By: #### R SPLUS ####[facility] [address] [address]Dr. Radha Galindo RP2 Header 1 RESPIRATORY PANEL: VIRUSES Normal [facility] Comment on above: Performed By: #### R SPLUS ####[facility] [address] [address]Dr. Radha Galindo RP2 Header 2 RESPIRATORY PANEL: BACTERIA Normal [facility] Comment on above: Performed By: #### R SPLUS ####[facility] [address] [address]Dr. Radha Galindo RSV Not detected Normal NOT DETECTED [facility] Comment on above: Performed By: #### R SPLUS ####[facility] [address] [place], [place] [address]Dr. Radha Galindo SARS-CoV-2 (COVID-19) RNA SUSAN+probe Ql (Unsp spec) Not detected Normal NOT DETECTED [facility] Comment on above: Performed By: #### R SPLUS ####[facility] [address] [place], [place] [address]Dr. Radha Galindo XR CHEST 2 Von 09-07-2022 [...] BRANDON CRUZ Date: 2022-09-07 12:18 Normal [facility] CBC AUTO DIFFon 05-16-2022 BASO # 0.1 103/ul Normal 0.0-0.1 [facility] Comment on above: Performed By: #### C BC ####[facility] [address] [address]Dr. Radha Galindo Basophils/100 WBC (Bld) 0.6 % Normal 0.2-2.0 [facility] Comment on above: Performed By: #### C BC ####[facility] [address] [id number]. Radha Galindo EO # 0.2 103/ul Normal 0.0-0.7 [facility] Comment on above: Performed By: #### C BC ####[facility] [address] [address]Dr. Radha Galindo Eosinophils/100 WBC (Bld) 1.3 % Normal 0.9-7.0 [facility] Comment on above: Performed By: #### C BC ####[facility] V[address] [place], [place] [address]Dr. Radha Gailndo Erythrocyte distribution width (RBC) [Ratio] 14.6 % Normal 11.0-15.0 [facility] Comment on above: Performed By: #### C BC ####[facility] [address] [place], [place] [address]Dr. Radha Galindo Hematocrit (Bld) [Volume fraction] 45.1 % Normal 36.0-48.0 [facility] Comment on above: Performed By: #### C BC ####[facility] [address] [place], [place] [address]Dr. Radha Galindo Hemoglobin (Bld) [Mass/Vol] 14.9 g/dL Normal 12.0-16.0 [facility] Comment on above: Performed By: #### C BC ####[facility] [address] [place], [place] [address]Dr. Radha Galindo IG # 0.06 10e3/ul Critically high 0.00-0.03 [facility] Comment on above: Performed By: #### C BC ####[facility] R[address] [place], [place] [address]Dr. Radha Galindo IG % 0.4 % Normal 0.0-0.5 [facility] Comment on above: Performed By: #### C BC ####[facility] Krs[address] [place], [place] [address]Dr. Radha Galindo LYMPH # 3.7 103/ul Normal 1.2-3.8 [facility] Comment on above: Performed By: #### C BC ####[facility] [address] [id number]. Judyricky Galindo Lymphocytes/100 WBC (Bld) 27.7 % Normal 20.5-60.0 [facility] Comment on above: Performed By: #### C BC ####[facility] [address] [id number]. Radha Galindo MANUAL DIFF REQ NO Normal [facility] Comment on above: Performed By: #### C BC ####[facility] [address] [id number]. Radha Galindo MCH (RBC) [Entitic mass] 31.6 pg Normal 26.7-34.0 [facility] Comment on above: Performed By: #### C BC ####[facility] [address] [place], [place] [address]Dr. Radha Galindo MCHC (RBC) [Mass/Vol] 33.0 g/dL Normal 29.9-35.2 [facility] Comment on above: Performed By: #### C BC ####[facility] [address] [id number]. Radha Galindo MCV (RBC) [Entitic vol] 95.6 fL Normal 81.0-99.0 [facility] Comment on above: Performed By: #### C BC ####[facility] L[address] [place], [place] [address]Dr. Radha Galindo MONO # 0.7 103/ul Normal 0.3-0.8 [facility] Comment on above: Performed By: #### C BC ####[facility] [address] [id number]. Radha Galindo Monocytes/100 WBC (Bld) 5.3 % Normal 1.7-12.0 [facility] Comment on above: Performed By: #### C BC ####[facility] [address] [id number]. Radha Galindo NEUT # 8.8 103/ul Critically high 1.4-6.5 [facility] Comment on above: Performed By: #### C BC ####[facility] [address] [id number]. Radha Galindo Neutrophils/100 WBC (Bld) 64.7 % Normal 43.0-75.0 [facility] Comment on above: Performed By: #### C BC ####[facility] [address] [id number]. Radha Galindo Platelet mean volume (Bld) [Entitic vol] 9.1 fL Critically low 9.5-13.5 [facility] Comment on above: Performed By: #### C BC ####[facility] [address] [id number]. Radha Galindo PLT 318 103/ul Normal 150-450 [facility] Comment on above: Performed By: #### C BC ####[facility] [address] [id number]. Radha Galindo RBC 4.72 106/ul Normal 4.20-5.40 [facility] Comment on above: Performed By: #### C BC ####[facility] [address] [id number]. Radha Galindo WBC 13.5 103/ul Critically high 4.0-11.0 [facility] Comment on above: Performed By: #### C BC ####[facility] [address] [id number]. Radha Galindo CRPon 05-16-2022 CRP 0.3 mg/dL Normal <=1.0 [facility] Comment on above: Performed By: #### B MP, CRP #### [facility] [address] [address] [address] Radha Galindo PROF CHEM 8 (BAS METB)on Anion gap [Moles/Vol] 13.7 mmol/L Normal [facility] Comment on above: Performed By: #### B MP, CRP #### [facility] [address] [address] [address] Radha Galindo Calcium [Mass/Vol] 9.5 mg/dL Normal 8.5-10.1 [facility] Comment on above: Performed By: #### B MP, CRP #### [facility] [address] [address] [address] Radha Galindo Chloride [Moles/Vol] 104 mmol/L Normal 98-107 [facility] Comment on above: Performed By: #### B MP, CRP #### [facility] [address] [address] [address] Radha Galindo CO2 [Moles/Vol] 27.0 mmol/L Normal 21.0-32.0 [facility] Comment on above: Performed By: #### B MP, CRP #### [facility] [address] [address] [address] Radha Galindo Creatinine [Mass/Vol] 1.01 mg/dL Normal 0.55-1.02 [facility] Comment on above: Performed By: #### B MP, CRP #### [facility] [address] [address] [address] Radha Galindo EGFR-AF UZBEK >60 Normal >=60 [facility] Comment on above: Performed By: #### B MP, CRP #### [facility] [address] [address] [address] Radha Galindo EGFR-NON AF UZBEK 58 mL/min/1.73m2 Critically low >=60 [facility] Comment on above: Performed By: #### B MP, CRP #### [facility] [address] [address] [address] Radha Galindo Glucose [Mass/Vol] 137 mg/dL Critically high 74-106 [facility] Comment on above: Performed By: #### B MP, CRP #### [facility] [address] [address] [address] Radha Galindo Potassium [Moles/Vol] 3.7 mmol/L Normal 3.5-5.1 [facility] Comment on above: Performed By: #### B MP, CRP #### [facility] [address] [address] [address] Radha Galindo Sodium [Moles/Vol] 141 mmol/L Normal 136-[address] [facility] Comment on above: Performed By: #### B MP, CRP #### [facility] [address] [address] [address] Radha Galindo Urea nitrogen [Mass/Vol] 11.0 mg/dL Normal 7.0-18.0 [facility] Comment on above: Performed By: #### B MP, CRP #### [facility] [address] [address] [address] Radha Galindo Urea nitrogen/Creatinine [Mass ratio] 10.9 mg/mg Normal [facility] Comment on above: Performed By: #### B MP, CRP #### [facility] [address] [address] [address] Radha Galindo SED RATE [facility] 2021 SED RATE 18 mm/hr Normal <=30 [facility] Comment on above: Performed By: #### S EDR ####[facility] [address] [address]Dr. Radha Galindo [facility]on SARS-CoV-2 (COVID-19) RNA SUSAN+probe Ql (Unsp spec) Not detected Normal NOT DETECTED [facility] Comment on above: Result Comment: This test is not yet approved or cleared by the [place] FDA. When there are no FDA-approved or cleared tests available, and other criteria are met, FDA can make tests available under an emergency access mechanism called an Emergency Use Authorization (EUA). The EUA for this test is supported by the [place] of Health and Human Service's (HHS's) declaration [...] SARS-CoV-2. Performed By: #### C VDTBH #### [facility] [address] [place], [place] [address] Dr. Radha Galindo Covid-19 PCR ([facility])on 01-28 SARS-CoV-2 (COVID-19) RNA SUSAN+probe Ql (Unsp spec) Not detected Normal NOT DETECTED [facility] Comment on above: Result Comment: This test is not yet approved or cleared by the [place] FDA. When there are no FDA-approved or cleared tests available, and other criteria are met, FDA can make tests available under an emergency access mechanism called an Emergency Use Authorization (EUA). The EUA for this test is supported by the [place] of Health and Human Service's (HHS's) declaration [...] SARS-CoV-2. Performed By: #### C VDTB #### [facility] [address] [place] [address] [address] [address] Radha Galindo Microalbumin (with Creat)on 12-12-2021 mALB <1.2 Low [facility] Comment on above: Result Comment: Unab le to calculate mALB/Crea ratio, mALB is <1.2 mg/dL mALB reference range not established. Performed By: #### m ALBC #### [facility] [address] [place], [place] [id number] UCREA 60 mg/dL Normal 28-217 [facility] Comment on above: Performed By: #### m ALBC #### [facility] [address] [place], [place] [id number] Complete Blood Count with Au to Diffon 11-28-2021 Basophils (Bld) [#/Vol] 0.07 10*3/uL Normal 0.00-0.20 [facility] Comment on above: Performed By: #### C MP, CBCAD, VITD, LIPD #### [facility] [address] [place], [place] [id number] Basophils/100 WBC (Bld) 0.6 % Normal [facility] Comment on above: Performed By: #### C MP, CBCAD, VITD, LIPD #### [facility] [address] [place], [place] [id number] Eosinophils (Bld) [#/Vol] 0.17 10*3/uL Normal 0.02-0.50 [facility] Comment on above: Performed By: #### C MP, CBCAD, VITD, LIPD #### [facility] [address] [place], [place] [id number] Eosinophils/100 WBC (Bld) 1.4 % Normal [facility] Comment on above: Performed By: #### C MP, CBCAD, VITD, LIPD #### [facility] [address] [place], [place] [id number] Erythrocyte distribution width (RBC) [Ratio] 14.1 % Normal 11.0-15.0 [facility] Comment on above: Performed By: #### C MP, CBCAD, VITD, LIPD #### [facility] [address] [place], [place] [id number] Hematocrit (Bld) [Volume fraction] 46.1 % Normal 35.0-47.0 [facility] Comment on above: Performed By: #### C MP, CBCAD, VITD, LIPD #### [facility] [address] [place], [place] [id number] Hemoglobin (Bld) [Mass/Vol] 15.6 g/dL High 11.6-15.5 [facility] Comment on above: Performed By: #### C MP, CBCAD, VITD, LIPD #### [facility] [address] [place], [place] [id number] Lymphocytes (Bld) [#/Vol] 3.0 10*3/uL Normal 0.9-3.9 [facility] Comment on above: Performed By: #### C MP, CBCAD, VITD, LIPD #### [facility] [address] [place], [place] [id number] Lymphocytes/100 WBC (Bld) 25.9 % Normal [facility] Comment on above: Performed By: #### C MP, CBCAD, VITD, LIPD #### [facility] [address] [place], [place] [id number] MCH (RBC) [Entitic mass] 31.0 pg Normal 27.0-33.0 [facility] Comment on above: Performed By: #### C MP, CBCAD, VITD, LIPD #### [facility] [address] [place], [place] [id number] MCHC (RBC) [Mass/Vol] 33.8 g/dL Normal 32.0-36.0 [facility] Comment on above: Performed By: #### C MP, CBCAD, VITD, LIPD #### [facility] [address] [place], [place] [id number] MCV (RBC) [Entitic vol] 92 fL Normal 80-100 [facility] Comment on above: Performed By: #### C MP, CBCAD, VITD, LIPD #### [facility] [address] [place], [place] [id number] Monocytes (Bld) [#/Vol] 0.8 10*3/uL Normal 0.2-0.9 [facility] Comment on above: Performed By: #### C MP, CBCAD, VITD, LIPD #### [facility] [address] [place], [place] [id number] Monocytes/100 WBC (Bld) 6.8 % Normal [facility] Comment on above: Performed By: #### C MP, CBCAD, VITD, LIPD #### [facility] [address] [place], [place] [id number] Neutrophils (Bld) [#/Vol] 7.6 10*3/uL Normal 1.5-7.8 [facility] Comment on above: Performed By: #### C MP, CBCAD, VITD, LIPD #### [facility] [address] [place], [place] [id number] Neutrophils/100 WBC (Bld) 64.4 % Normal [facility] Comment on above: Performed By: #### C MP, CBCAD, VITD, LIPD #### [facility] [address] [place], [place] [id number] Platelet mean volume (Bld) [Entitic vol] 9.50 fL Normal 7.50-12.50 [facility] Comment on above: Performed By: #### C MP, CBCAD, VITD, LIPD #### [facility] [address] [place], [place] [id number] Platelets (Bld) [#/Vol] 304 10*3/uL Normal 140-400 [facility] Comment on above: Performed By: #### C MP, CBCAD, VITD, LIPD #### [facility] [address] [place], [place] [id number] RBC (Bld) [#/Vol] 5.03 10*6/uL Normal 3.90-5.20 [facility] Comment on above: Performed By: #### C MP, CBCAD, VITD, LIPD #### [facility] [address] [place], [place] [id number] RDW-SD 47.6 fL Normal 37.0-50.0 [facility] Comment on above: Performed By: #### C MP, CBCAD, VITD, LIPD #### [facility] [address] [place], [place] [id number] WBC (Bld) [#/Vol] 11.8 10*3/uL High 3.8-11.0 [facility] Comment on above: Performed By: #### C MP, CBCAD, VITD, LIPD #### [facility] [address] [place], [place] [id number] Comprehensive Metabolic Pane aditya 11-28-2021 Albumin [Mass/Vol] 4.9 g/dL Normal 3.6-5.[address] [facility] Comment on above: Performed By: #### C MP, CBCAD, VITD, LIPD #### [facility] [address] [place], [place] [id number] Albumin/Globulin [Mass ratio] 2.3 {ratio} Normal 1.0-2.5 [facility] Comment on above: Performed By: #### C MP, CBCAD, VITD, LIPD #### [facility] [address] [place], [place] [id number] ALP [Catalytic activity/Vol] 82 U/L Normal 35-119 [facility] Comment on above: Performed By: #### C MP, CBCAD, VITD, LIPD #### [facility] [address] [place], [place] [id number] ALT [Catalytic activity/Vol] 44 U/L High 6-33 [facility] Comment on above: Result Comment: 06/29 Female reference range changed. Performed By: #### C MP, CBCAD, VITD, LIPD #### [facility] [address] [place], [place] [id number] Anion gap [Moles/Vol] 17 mmol/L Normal 12-20 [facility] Comment on above: Result Comment: Effe ctive 08/04/2019 reference range changed. Performed By: #### C MP, CBCAD, VITD, LIPD #### [facility] [address] [place], [place] [id number] AST [Catalytic activity/Vol] 27 U/L Normal 9-34 [facility] Specialist Comment on above: Performed By: #### C MP, CBCAD, VITD, LIPD #### [facility] [address], [place] [id number] Bilirubin [Mass/Vol] 0.97 mg/dL Normal 0.30-1.20 [facility] Comment on above: Performed By: #### C MP, CBCAD, VITD, LIPD #### [facility] [address], [place] [id number] BUN/CREA 14 Ratio Normal 6-22 [facility] Specialist Comment on above: Performed By: #### C MP, CBCAD, VITD, LIPD #### [facility] [address], [place] [id number] Calcium [Mass/Vol] 10.3 mg/dL High 8.6-10.[address] [facility] Comment on above: Performed By: #### C MP, CBCAD, VITD, LIPD #### [facility] [address], [place] [id number] Chloride [Moles/Vol] 101 mmol/L Normal 98-107 [facility] Comment on above: Performed By: #### C MP, CBCAD, VITD, LIPD #### [facility] [address], [place] [id number] CO2 [Moles/Vol] 25 mmol/L Normal 20-31 [facility] Comment on above: Performed By: #### C MP, CBCAD, VITD, LIPD #### [facility] [address], [place] [id number] Creatinine [Mass/Vol] 1.0 mg/dL Normal 0.6-1.4 [facility] Comment on above: Performed By: #### C MP, CBCAD, VITD, LIPD #### [facility] [address], [place] [id number] eGFRAA 75 mL/min/1.73m2 Normal >60 [facility] Specialist Comment on above: Performed By: #### C MP, CBCAD, VITD, LIPD #### [facility] [address], [place] [id number] eGFRNAA 62 mL/min/1.73m2 Normal >60 [facility] Specialist Comment on above: Performed By: #### C MP, CBCAD, VITD, LIPD #### [facility] [address], [place] [id number] Globulin (S) [Mass/Vol] 2.1 g/dL Normal 1.9-3.7 [facility] Comment on above: Performed By: #### C MP, CBCAD, VITD, LIPD #### [facility] [address], [place] [id number] Glucose [Mass/Vol] 120 mg/dL High 65-[address] [facility] Comment on above: Result Comment: For FASTING Glucose --- ADA reference ranges: Normal 65-99 mg/dl Prediabetes 100-125 Diabetes >/= 126 Performed By: #### C MP, CBCAD, VITD, LIPD #### [facility] [address], [place] [id number] Potassium [Moles/Vol] 4.4 mmol/L Normal 3.5-5.5 [facility] Comment on above: Performed By: #### C MP, CBCAD, VITD, LIPD #### [facility] [address], [place] [id number] Protein [Mass/Vol] 7.0 g/dL Normal 6.1-8.1 [facility] Astr[facility]ical Engineer Comment on above: Performed By: #### C MP, CBCAD, VITD, LIPD #### [facility] [address], [place] [id number] Sodium [Moles/Vol] 139 mmol/L Normal 135-146 [facility] Astronautical Engineer Comment on above: Performed By: #### C MP, CBCAD, VITD, LIPD #### [facility] [address], [place] [id number] Urea nitrogen [Mass/Vol] 13 mg/dL Normal 7-25 [facility] Comment on above: Performed By: #### C MP, CBCAD, VITD, LIPD #### [facility] [address], [place] [id number] Hemoglobin A1Con 11-28-2021 EAG 131.24 Normal [facility] Comment on above: Performed By: #### A 1C #### [facility] [address], [place] [id number] HbA1c (Bld) [Mass fraction] 6.2 % High 4.0-6.0 [facility] Comment on above: Performed By: #### A 1C #### [facility] [address], [place] [id number] Lipid Panelon 11-28-2021 Cholesterol [Mass/Vol] 243 mg/dL High 125-200 [facility] Comment on above: Result Comment: Low risk < 200mg/dL Borderline risk 201-239 mg/dl High risk > or equal to 240 Performed By: #### C MP, CBCAD, VITD, LIPD #### [facility] [address], [place] [id number] Cholesterol in HDL [Mass/Vol] 58 mg/dL Normal >40 [facility] Comment on above: Result Comment: High Cardiovascular Risk HDL <40 mg/dL Low Cardiovascular Risk HDL > or equal to 60 mg/dl Performed By: #### C MP, CBCAD, VITD, LIPD #### [facility] [address], [place] [id number] Cholesterol in LDL [Mass/Vol] 154 mg/dL Normal [facility] Comment on above: Result Comment: LDL ATP III CLASSIFICATION LDL less than 100 mg/dl Optimal LDL 100-129 mg/dl Near or above optimal LDL 130-159 Borderline high LDL 160-189 High LDL greater than 189 mg/dl Very High Performed By: #### C MP, CBCAD, VITD, LIPD #### [facility] [address], [place] [id number] Cholesterol in VLDL [Mass/Vol] 31 mg/dL Normal [facility] Comment on above: Performed By: #### C MP, CBCAD, VITD, LIPD #### [facility] [address], [place] [id number] Cholesterol.total/Ch olesterol in HDL [Mass ratio] 4 {ratio} Normal [facility] Comment on above: Performed By: #### C MP, CBCAD, VITD, LIPD #### [facility] [address], [place] [id number] Triglyceride [Mass/Vol] 154 mg/dL High 30-150 [facility] Comment on above: Result Comment: TRIG ATPIII CLASSIFICATIONS TRIG less than 150 mg/dl Normal TRIG 150-199 mg/dl Borderline High TRIG 200-500 mg/dl High TRIG greather than 500 mg/dl Very High Performed By: #### C MP, CBCAD, VITD, LIPD #### [facility] [address], [place] [id number] Vitamin D 25-OHon 11-28-2021 VIT D 25 OH 73 ng/ml Normal >29 [facility] Comment on above: Result Comment: Janneth min D Status Deficiency <20 ng/mL Insufficiency 20-29 ng/mL Optimal 30-100 ng/mL Possible Toxicity >=150 ng/mL Performed By: #### C MP, CBCAD, VITD, LIPD #### [facility] [address] [facility] [place] [id number] [facility] DH[facility] DALLAS ([id number]) 1970 F Date Time Provider Department 03/08/21 CHRIS OLIVA ORQ During your visit today, we recorded the following information about you: [place] [facility] [place] 4:45 PM Signed Patient called requesting a refill for Diclofenac Sod ER 100 mg tab. To send to [facility] at [phone] fax [phone] [place]enna Ahuja [facility] 03/17/2021 1:01 PM Signed Spoke to patient, she stated that got theOral Voltaren Oral Voltaren from her family doctor. 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 Allergies As of Date: 03/08/2021 Noted Allergy Reaction HYDROMORPHONE 03/04/2013 9 - Itching Date Reviewed: 12/22/2020 Reviewed by: Kirsten Vilchis - Fully Assessed Reason for Visit: Medication Question [9358] Prescriptions as of 03/17/2021 - DULoxetine (CYMBALTA) 30 mg capsule Take 90 mg by mouth once daily. - amLODIPine (NORVASC) 5 mg tablet Take 1 tablet by mouth once daily. - OLANZapine (ZYPREXA) 5 mg tablet Take 1 tablet by mouth once daily. - furosemide (LASIX) 20 mg tablet Take 1 tablet by mouth once daily. - L.acid/L.casei/B.bif/ B.aditya/FOS (PROBIOTIC BLEND ORAL) Take by mouth. - [...] Encounter Status:Closed [facility] ([id number]) 1970 F Date Time Provider Department 03/08/21 CHRIS OLIVA ORQ During your visit today, we recorded the [...] 1 tablet by mouth once daily. - L.acid/L.casei/B.bif/ B.aditya/FOS (PROBIOTIC BLEND ORAL) Take by mouth. - [...] Encounter Status:Closed by GLENNA QUINN on 03/08/21 [facility] CNOVon 12-22-2020 CNOV Office Visit (ORTHMN ) DHARA DALLAS ([id number]) 1970 F Date Time Provider Department 12/22/20 12:30 PM CHRIS OLIVA ORTHZARA During your visit today, we recorded the following information about you: Weight Height 99.8 kg 1.664 m Chris Oliva MD 12/22/2020 3:15 PM Signed Subjective: Dhara DALLAS is a 50 year old female. Patient [...] History: Current Outpatient Medications Medication Sig - L.acid/L.casei/B.bif/ B.aditya/FOS (PROBIOTIC BLEND ORAL) Take by mouth. 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 SKIN:Negative for lesions, rash, and itching PSYCHIATRIC: Negative for sleep disturbance, mood disorder and recent psychosocial stressors. HEMATOLOGIC/LYMPHATIC /IMMUNOLOGIC:Negative for prolonged bleeding, bruising easily or swollen [...] di (more content not included)... Normal [facility] XR OUTSIDE CD DICOM IMPORT - NBNRon 11-17-2020 XR OUTSIDE CD DICOM IMPORT -NBNR Images were obtained outside of [facility] [id number] N Normal [facility] XR OUTSIDE CD DICOM IMPORT -NBNR Images were obtained outside of [facility] [id number] N Normal [facility] Vital Signs Date Time Vital Sign Value Performing Clinician Facility 04-07-2025 09:27-0400 Body height 165.1 cm Josey Youssef MD Work Phone: [facility] 04-07-2025 09:27-0400 Body mass index (BMI) [Ratio] 36.11 kg/m2 Josey Youssef MD Work Phone: [facility] 04-07-2025 09:27-0400 Body weight 98.43 kg Josey Youssef MD Work Phone: [facility] 04-07-2025 09:27-0400 Diastolic blood pressure 88 mm[Hg] Josey Youssef MD Work Phone: [facility] 04-07-2025 09:27-0400 Heart rate 90 /min Josey Youssef MD Work Phone: [facility] 04-07-2025 09:27-0400 SaO2% (BldA) [Mass fraction] 96 % Josey Youssef MD Work Phone: [facility] 04-07-2025 09:27-0400 Systolic blood pressure 138 mm[Hg] Josey Youssef MD Work Phone: [facility] 09-11-2024 09:28-0500 Body height 165.1 cm Janel Hemmer PA Work Phone: [facility] 09-11-2024 09:28-0500 Body mass index (BMI) [Ratio] 34.71 kg/m2 Janel Hemmer PA Work Phone: [facility] 09-11-2024 09:28-0500 Body weight 94.62 kg Janel Hemmer PA Work Phone: [facility] 09-11-2024 09:28-0500 Diastolic blood pressure 84 mm[Hg] Janel Hemmer PA Work Phone: [facility] 09-11-2024 09:28-0500 Heart rate 82 /min Janel Hemmer PA Work Phone: [facility] 09-11-2024 09:28-0500 Respiratory rate 16 /min Janel Hemmer PA Work Phone: [facility] 09-11-2024 09:28-0500 SaO2% (BldA) [Mass fraction] 95 % Janel Hemmer PA Work Phone: [facility] 09-11-2024 09:28-0500 Systolic blood pressure 138 mm[Hg] Janel Hemmer PA Work Phone: [facility] 08-12-2024 08:33-0500 Body height 165.1 cm Marnie Oconnell VOLLEYBALL COMMENTATOR Work Phone: [facility] 08-12-2024 08:33-0500 Body mass index (BMI) [Ratio] 33.48 kg/m2 Marnie Oconnell VOLLEYBALL COMMENTATOR Work Phone: [facility] 08-12-2024 08:33-0500 Body weight 91.26 kg Marnie Oconnell VOLLEYBALL COMMENTATOR Work Phone: [facility] 08-12-2024 08:33-0500 Diastolic blood pressure 84 mm[Hg] Marnie Oconnell VOLLEYBALL COMMENTATOR Work Phone: [facility] 08-12-2024 08:33-0500 Heart rate 101 /min Marnie Oconnell VOLLEYBALL COMMENTATOR Work Phone: [facility] 08-12-2024 08:33-0500 Respiratory rate 18 /min Marnie Oconnell VOLLEYBALL COMMENTATOR Work Phone: [facility] 08-12-2024 08:33-0500 SaO2% (BldA) [Mass fraction] 98 % Marnie Oconnell VOLLEYBALL COMMENTATOR Work Phone: [facility] 08-12-2024 08:33-0500 Systolic blood pressure 138 mm[Hg] Marnie Oconnell VOLLEYBALL COMMENTATOR Work Phone: [facility] 04-28-2024 08:30-0400 Body height 165.1 cm Janel Hemmer PA Work Phone: [facility] 04-28-2024 08:30-0400 Body mass index (BMI) [Ratio] 34.91 kg/m2 Janel Hemmer PA Work Phone: [facility] 04-28-2024 08:30-0400 Body weight 95.17 kg Janel Hemmer PA Work Phone: [facility] 04-28-2024 08:30-0400 Diastolic blood pressure 84 mm[Hg] Janel Hemmer PA Work Phone: [facility] 04-28-2024 08:30-0400 Heart rate 99 /min Janel Hemmer PA Work Phone: [facility] 04-28-2024 08:30-0400 Respiratory rate 16 /min Janel Hemmer PA Work Phone: [facility] 04-28-2024 08:30-0400 SaO2% (BldA) [Mass fraction] 93 % Janel Hemmer PA Work Phone: [facility] 04-28-2024 08:30-0400 Systolic blood pressure 124 mm[Hg] Janel Hemmer PA Work Phone: [facility] 04-14-2024 13:06-0400 Body height 165.1 cm Josey Youssef MD Work Phone: [facility] 04-14-2024 13:06-0400 Body mass index (BMI) [Ratio] 35.11 kg/m2 Josey Youssef MD Work Phone: [facility] 04-14-2024 13:06-0400 Body weight 95.71 kg Josey Youssef MD Work Phone: [facility] 04-14-2024 13:06-0400 Diastolic blood pressure 76 mm[Hg] Josey Youssef MD Work Phone: [facility] 04-14-2024 13:06-0400 Heart rate 84 /min Josey Youssef MD Work Phone: [facility] 04-14-2024 13:06-0400 SaO2% (BldA) [Mass fraction] 93 % Josey Youssef MD Work Phone: [facility] 04-14-2024 13:06-0400 Systolic blood pressure 132 mm[Hg] Josey Youssef MD Work Phone: [facility] 03-22-2024 09:240400 Body height 165.1 cm [facility] 03-22-2024 09:240400 Body mass index (BMI) [Ratio] 35.2 kg/m2 [facility] 03-22-2024 09:240400 Body temperature 98 [degF] [facility] 03-22-2024 09:24-0400 Body weight 96.17 kg [facility] 03-22-2024 09:24-0400 Diastolic blood pressure 65 mm[Hg] [facility] 03-22-2024 09:24-0400 Heart rate 74 /min [facility] 03-22-2024 09:240400 Respiratory rate 18 /min [facility] 03-22-2024 09:24-0400 SaO2% (BldA) [Mass fraction] 94 % [facility] 03-22-2024 09:240400 Systolic blood pressure 132 mm[Hg] [facility] Encounters Encounter Date Encounter Type Care Provider Facility Start: 04-07-2025 End: 04-07-2025 Office outpatient visit 25 minutes Josey Youssef MD Work Phone: [facility] Comment on above: Spinal stenosis of l umbar region, unspecified whether neurogenic claudication present (Primary Dx); Type 2 diabetes mellitus with diabetic nephropathy, without long-term current use of insulin ([facility]); Major depressive disorder, single episode, mild ; Essential hypertension Start: 04-07-2025 End: 04-07-2025 ambulatory JOSEY YOUSSEF Not Available Start: 03-15-2025 End: 03-16-2025 Refill Josey Youssef MD Work Phone: [facility] Comment on above: Anxiety Start: 11-23-2024 End: 11-24-2024 Refill Josey Youssef MD Work Phone: [facility] Comment on above: Tremors of nervous s ystem; Anxiety Start: 10-13-2024 End: 10-13-2024 ambulatory JOSEY YOUSSEF Not Available Start: 09-11-2024 End: 09-11-2024 Bamboo flowsheet Janel GOLDMAN Work Phone: [facility] Start: 09-11-2024 End: 09-12-2024 Bamboo flowsheet Janel GOLDMAN Work Phone: [facility] Start: 09-11-2024 End: 09-12-2024 External Result Encounter Janel GOLDMAN Work Phone: [facility] Unsolicited Start: 09-11-2024 End: 09-11-2024 Office outpatient visit 15 minutes Janel GOLDMAN Work Phone: [facility] Comment on above: Herpes zoster withou t complication (Primary Dx); Former smoker; Diabetic nephropathy associated with type 2 diabetes mellitus (HCC) ([facility]/HCC) Start: 09-11-2024 End: 09-11-2024 ambulatory JANEL CROWDER Not Available Start: 08-12-2024 End: 08-12-2024 Bamboo flowsheet Marnie Oconnell VOLLEYBALL COMMENTATOR Work Phone: [facility] Start: 08-12-2024 End: 08-12-2024 Bamboo flowsheet Marnie Oconnell VOLLEYBALL COMMENTATOR Work Phone: [facility] Start: 08-12-2024 End: 08-12-2024 Office outpatient visit 25 minutes Marnie Oconnell VOLLEYBALL COMMENTATOR Work Phone: [facility] Comment on above: Pansinusitis, unspec ified chronicity (Primary Dx); Type 2 diabetes mellitus with other specified complication (CMS/HCC); Type 2 diabetes mellitus without complications (CMS/HCC); 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); Morbid (severe) obesity due to excess calories (CMS/HCC); Chronic obstructive pulmonary disease, unspecified (CMS/HCC); Other specified chronic obstructive pulmonary disease (CMS/HCC) Start: 08-12-2024 End: 08-12-2024 ambulatory MARNIE OCONNELL Not Available Start: 08-11-2024 End: 08-11-2024 Refill Josey Youssef MD Work Phone: [facility] Comment on above: Anxiety Start: 07-14-2024 End: 07-14-2024 Refill Maryan Brandt MA [facility] Comment on above: Anxiety Start: 06-18-2024 End: 06-18-2024 Refill Josey Youssef MD Work Phone: [facility] Comment on above: Anxiety Start: 04-28-2024 End: 04-28-2024 Bamboo flowsheet Janel Crowder PA Work Phone: [facility] Start: 04-28-2024 End: 04-28-2024 Bamboo flowsheet Janel Crowder PA Work Phone: [facility] Start: 04-28-2024 End: 04-28-2024 Patient encounter status Janel Crowder PA Work Phone: [facility] Work Phone: Start: 04-28-2024 End: 04-28-2024 Periodic preventive med est patient 40-64yrs Janel GOLDMAN Work Phone: [facility] Comment on above: Wellness examination (Primary Dx); Daytime somnolence; Other chronic pain; Lesion of sciatic nerve, unspecified laterality; Tension headache; Severe persistent asthma with acute exacerbation (CMS/HCC); COPD with chronic bronchitis (CMS/HCC); Essential hypertension (CMS/HCC); Irritable bowel syndrome with diarrhea; Lung field abnormal; Stage 3a chronic kidney disease (HCC) (CMS/HCC); Leg length discrepancy; Other osteoarthritis of spine, lumbar region; Diabetic nephropathy associated with type 2 diabetes mellitus (HCC) (CMS/HCC); Morbid (severe) obesity due to excess calories (CMS/HCC); Type 2 diabetes mellitus with other specified complication, without long-term current use of insulin (CMS/HCC); Type 2 diabetes mellitus without complication, without long-term current use of insulin (CMS/HCC); Adjustment disorder with anxiety (CMS/HCC); Seasonal allergic rhinitis due to pollen; Depressive disorder (CMS/HCC); Dizziness; History of hysterectomy; Hot flashes due to menopause; Hypertriglyceridemia (CMS/HCC); 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; Migraine without aura and without status migrainosus, not intractable (CMS/HCC); Piriformis syndrome of left side; Psoriasis (CMS/HCC); Pure hypercholesterolemia (CMS/HCC); Smoker; Surgical menopause; Need for vaccination Start: 04-28-2024 End: 04-28-2024 ambulatory JANEL CROWDER Not Available Start: 04-14-2024 End: 04-14-2024 Bamboo flowsheet Josey Youssef MD Work Phone: [facility] Start: 04-14-2024 End: 04-14-2024 Bamboo flowsheet Josey Youssef MD Work Phone: [facility] Start: 04-14-2024 End: 04-14-2024 Office outpatient visit 25 minutes Josey Youssef MD Work Phone: [facility] Comment on above: Diabetic nephropathy associated with type 2 diabetes mellitus (HCC) (CMS/HCC) (Primary Dx); Essential hypertension (CMS/HCC); Encounter for screening mammogram for malignant neoplasm of breast; Type 2 diabetes mellitus with other specified complication, without long-term current use of insulin ([facility]/HCC); Morbid (severe) obesity due to excess calories ([facility]/HCC); Body mass index (BMI) 37.0-37.9, adult; Chronic obstructive pulmonary disease, unspecified (CMS/HCC); Atherosclerosis of aorta ([facility]/HCC); Pure hypercholesterolemia ([facility]/HCC); Migraine without aura and without status migrainosus, not intractable ([facility]/HCC); Depressive disorder ([facility]); Type 2 diabetes mellitus without complication, without long-term current use of insulin ([facility]); Anxiety; Gastroesophageal reflux disease without esophagitis Start: 04-14-2024 End: 04-14-2024 ambulatory JOSEY YOUSSEF Not Available Start: 03-22-2024 End: 03-22-2024 ambulatory [facility] Work Phone: Start: 03-22-2024 End: 03-22-2024 Patient encounter procedure [facility] Work Phone: Start: 02-26-2023 End: 02-27-2023 ambulatory Yamile Lopez MD Facility: [facility] Start: 02-05-2023 End: 02-06-2023 ambulatory Yamile Lopez MD [facility]: [facility] Start: 01-22-2023 End: 01-23-2023 ambulatory Yamile Lopez MD Facility: [facility] Start: 01-08-2023 End: 01-09-2023 ambulatory Yamile Lopez MD Facility: [facility] Start: 12-27-[address] JOSEY YOUSSEF Facility: [facility] Start: 12-15-2022 End: 12-16-2022 ambulatory DEYA DUNN . Facility:[facility] Start: 12-08-2022 End: 12-09-2022 ambulatory BHUMIKA ALVES . Facility:[facility] Start: 09-07-2022 End: 09-08-[address] JOSEY YOUSSEF Facility:[facility] Start: 09-07-2022 End: 09-08-[address] AMELIA WATTS . Facility:[facility] Start: 06-01-2022 End: 06-02-2022 ambulatory GRANT MCGILL . Facility:[facility] Start: 05-16-2022 End: 05-16-2022 ambulatory CANDICE ANNIE Facility:[facility] Start: 04-06-2022 End: 04-07-2022 ambulatory GRANT MCGILL . Facility:[facility] Start: 03-08-2022 Encounter for prepro cedural laboratory examination DR AMELIA WATTS . [facility] Start: 03-07-2022 End: 03-07-[address] AMELIA WATTS . Facility:[facility] Start: 03-06-2022 End: 03-07-[address] AMELIA WATTS . Facility:[facility] Start: 03-06-2022 End: 03-07-2022 Encounter for preprocedural laboratory examination DR AMELIA WATTS . Facility:[facility] Start: 02-28-2022 End: 02-28-[address] AMELIA WATTS . Facility:[facility] Start: 02-24-2022 End: 02-25-[address] AMELIA WATTS . Facility:[facility] Start: 01-26-2022 End: 01-27-2022 ambulatory GRANT MCGILL . Facility:[facility] Start: 01-17-2022 End: 01-17-[address] JOSEY YOUSSEF Facility:[facility] Procedures Date Procedure Procedure Detail Performing Clinician Start: 04-07-2025 Hemoglobin glycosylated a1c Josey Youssef MD Work Phone: Start: 10-13-2024 Laboratory test result abnormal Abnormal laboratory test result Josey Youssef MD Work Phone: Start: 09-11-2024 Urine albumin quantitative Janel GOLDMAN Work Phone: Start: 04-18-2024 Mammography Janel GOLDMAN Work Phone: Start: 04-14-2024 Hemoglobin glycosylated a1c Josey Youssef MD Work Phone: Start: 12-26-2022 End: 04-28-2024 History of total hysterectomy H/O total hysterectomy Josey Youssef MD Work Phone: Start: 12-09-2021 Mammography Josey Youssef MD Work Phone: Start: 12-03-2020 Colonoscopy Josey Youssef MD Work Phone: Start: 11-11-2015 H/O: hysterectomy History of hysterectomy Josey Youssef MD Work Phone: H/O: hysterectomy History of hysterectomy Janel GOLDMAN Work Phone: Plan of Treatment Date Care Activity Detail Author Start: 12-03-2030 Screening for malignant neoplasm of colon [facility] Start: 09-11-2025 Urine screening for protein Diabetes: Urine Protein Screening [facility] Start: 07-07-2025 Hemoglobin A1c measurement Diabetes: Hemoglobin A1C [facility] Start: 04-28-2025 Urine screening for protein Diabetes: Urine Protein Screening [facility] Start: 04-20-2025 End: 04-20-2025 Patient encounter procedure [facility] Start: 04-18-2025 Screening for malignant neoplasm of breast Mammogram [facility] Start: 03-30-2025 Influenza vaccination [facility] Start: 01-13-2025 Hemoglobin A1c measurement Diabetes: Hemoglobin A1C [facility] Start: 10-13-2024 End: 10-13-2024 Patient encounter procedure 10/13/2024 9:00 AM EDT Office Visit [facility] [address] [facility] [address] [place] [id number] Josey Youssef MD [address] [facility] [address] [place] [address] [facility] Start: 09-11-2024 End: 09-11-2025 Microalbumin/Creatinin e panel in random Urine Microalbumin / creatinine urine ratio Lab Routine Diabetic nephropathy associated with type 2 diabetes mellitus (HCC) (CMS/HCC) Expected: 09/11/2024 (Approximate), Expires: 09/11/2025 [facility] Work Phone: Comment on above: Expected: 09/11/2024 (Approximate), Expi res: 09/11/2025 Start: 09-11-2024 End: 09-11-2024 Patient encounter procedure 09/11/2024 9:30 AM EST Office Visit [facility] [address] [place] [address] Janel Crowder PA [address] [place] [address] Arrived [facility] Comment on above: Arrived Start: 08-12-2024 End: 08-12-2024 Patient encounter procedure [facility] Comment on above: Arrived Start: 07-14-2024 Hemoglobin A1c measurement Diabetes: Hemoglobin A1C [facility] Start: 04-28-2024 End: 04-28-2024 Patient encounter procedure 04/28/2024 8:30 AM EDT Office Visit [facility] [address] [place] [address] Janel Crowder PA [address] [place] [address] Arrived [facility] Comment on above: Arrived Start: 04-14-2024 End: 04-14-2025 CBC panel - Blood by Automated count CBC Lab Routine Essential hypertension (CMS/HCC) Type 2 diabetes mellitus with other specified complication, without long-term current use of insulin (CMS/HCC) Diabetic nephropathy associated with type 2 diabetes mellitus (HCC) (CMS/HCC) Pure hypercholesterolemia (CMS/HCC) Expected: 04/14/2024 (Approximate), Expires: 04/14/2025 [facility] Comment on above: Expected: 04/14/2024 (Approximate), Expi res: 04/14/2025 Start: 04-14-2024 End: 04-14-2025 Comprehensive metabolic 2000 panel - Serum or Plasma Comprehensive metabolic panel Lab Routine Essential hypertension (CMS/HCC) Type 2 diabetes mellitus with other specified complication, without long-term current use of insulin (CMS/HCC) Diabetic nephropathy associated with type 2 diabetes mellitus (HCC) (CMS/HCC) Pure hypercholesterolemia (CMS/HCC) Expected: 04/14/2024 (Approximate), Expires: 04/14/2025 [facility] Comment on above: Expected: 04/14/2024 (Approximate), Expi res: 04/14/2025 Start: 04-14-2024 End: 04-14-2025 Lipid 1996 panel - Serum or Plasma Lipid panel Lab Routine Essential hypertension (CMS/HCC) Type 2 diabetes mellitus with other specified complication, without long-term current use of insulin (CMS/HCC) Diabetic nephropathy associated with type 2 diabetes mellitus (HCC) (CMS/HCC) Pure hypercholesterolemia (CMS/HCC) Expected: 04/14/2024 (Approximate), Expires: 04/14/2025 [facility] Comment on above: Expected: 04/14/2024 (Approximate), Expi res: 04/14/2025 Start: 04-14-2024 End: 06-14-2025 MG Breast - bilateral Screening Bilateral screening mammogram Imaging Routine Encounter for screening mammogram for malignant neoplasm of breast Expected: 04/14/2024, Expires: 06/14/2025 [facility] Work Phone: Comment on above: Expected: 04/14/2024, Expires: Start: 04-14-2024 End: 04-14-2024 Patient encounter procedure 04/14/2024 1:00 PM EDT Office Visit [facility] [address] [facility] [address] [place] [id number] Josey Youssef MD [address] [facility] [address] [place] [address] Arrived [facility] Comment on above: Arrived Start: 04-09-2024 Urine screening for protein Diabetes: Urine Protein Screening [facility] Start: 03-30-2024 Influenza vaccination Influenza Vaccine (#1) [facility] Start: 01-23-2024 Hemoglobin A1c measurement Diabetes: Hemoglobin A1C [facility] Start: 12-09-2022 Screening for malignant neoplasm of breast Mammogram [facility] Start: 1979 Glaucoma screening Diabetes: Retinopathy Screening [facility] Start: 1969 Screening for malignant neoplasm of colon [facility] Immunizations Immunization Date Immunization Notes Care Provider Fa cility 04-28-2024 zoster vaccine-recombinant adjuvanted (Shingrix) 50 MCG/0.5ML vaccine Janel GOLDMAN Work Phone: [facility] 04-28-2024 pneumococcal conjuga te 20-valent (Prevnar 20) 0.5 ML vaccine Janel GOLDMAN Work Phone: [facility] 06-15-2022 influenza, injectabl e, quadrivalent, preservative free Josey Youssef MD Work Phone: [facility] 06-15-2022 Moderna Bivalent Hernández ster Vaccination Josey Youssef MD Work Phone: [facility] 06-15-2022 SARS-COV-2 (COVID-19 ) vaccine, mRNA, spike protein, LNP, bivalent, preservative free, 30 mcg/0.3 mL dose, maria esther-sucrose formulation Josey Youssef MD Work Phone: [facility] 06-15-2022 influenza virus vacc ine, unspecified formulation Josey Youssef MD Work Phone: [facility] 07-11-2021 Influenza, injectabl e, Madin [place] Canine Kidney, preservative free, quadrivalent Josey Youssef MD Work Phone: [facility] Payers Date Payer Category Payer [facility] Health Insurance [facility] [id number] 2022 Unknown 1969 Unknown [id number] 2.16.840.1.261177.3.579. 2.593 1969 Unknown [id number] 2.16.840.1.331793.3.579. 2.593 1969 Unknown [id number] 2.16.840.1.623791.3.579. 2.593 1969 Unknown [id number] 2.16.840.1.440586.3.579. 2.593 1969 Unknown [id number] 2.16.840.1.868240.3.579. 2.593 1969 Unknown [id number] 2.16.840.1.946882.3.579. 2.593 1969 Unknown [id number] 2.16.840.1.111521.3.579. 2.593 1969 Unknown [id number] 2.16.840.1.648608.3.579. 2.593 1969 Unknown [id number] 2.16.840.1.645724.3.579. 2.593 1969 Unknown [id number] 2.16.840.1.585553.3.579. 2.593 1969 Unknown [id number] 2.16.840.1.457528.3.579. 2.593 1969 Unknown [id number] 2.16.840.1.163080.3.579. 2.593 1969 Unknown [id number] 2.16.840.1.795306.3.579. 2.593 1969 Unknown [id number] 2.16.840.1.096981.3.579. 2.593 1969 Unknown [id number] 2.16.840.1.279860.3.579. 2.196 1969 Unknown [id number] 2.16.840.1.675692.3.579. 2.196 1969 Unknown [id number] 2.16.840.1.977191.3.579. 2.196 1969 Unknown [id number] 2.16.840.1.284727.3.579. 2.196 1969 Unknown [id number] 2.16.840.1.202904.3.579. 2.1259 1969 Unknown [id number] 2.16.840.1.153870.3.579. 2.9 1969 Unknown [id number] 2.16.840.1.573446.3.579. 2.9 1969 Unknown [id number] 2.16.840.1.594792.3.579. 2.9 1969 Unknown [id number] 2.16.840.1.307139.3.579. 2.9 1969 Unknown [id number] 2.16.840.1.816826.3.579. 2.9 1959 Unknown [id number] 1959 Unknown [id number] Social History Date Type Detail Facility Start: 1984 Tobacco smoking stat [facility] Smoker (finding) [facility] Start: 1970 Sex Assigned At Female F [facility] Start: 01-01-2023 End: 04-28-2024 Tobacco smoking status PRIS Smokes tobacco daily [facility] Work Phone: Start: 1985 History of tobacco use Cigarette Smo ker [facility] Start: 04-28-2024 End: 09-11-2024 Tobacco use and exposure Smokeless tobacco non-user [facility] Start: 04-28-2024 End: 04-07-2025 Alcoholic beverage intake Current drinker of alcohol (finding) [facility] Start: 10-22-2023 End: 04-07-2025 History of Social function [facility] Start: 10-22-2023 End: 04-07-2025 Social connection and isolation panel [facility] In a typical week, h ow many times do you talk on the telephone with family, friends, or neighbors? Patient declined [facility] Are you now , , , , never or living with a partner? [facility] In the past 12 month s, was there a time when you were not able to pay the mortgage or rent on time? No [facility] Start: 05-12-2023 Alcohol Comment 1-2 drinks mon thly or less, caffeine yes coffee,soda [facility] Start: 1970 Sex assigned at Not on file [facility] Start: 09-11-2024 Tobacco smoking stat [facility] Ex-smoker [facility] Goals Date Patient Goal Desired Activity /State Personal health goal Functional Status Date Assessment Result Facility 04-07-2025 Patient Health [facility] ionnaire 2 item (PHQ-2) [Reported] [facility] Clinical Notes 12-22-2020 to 04-07-2025 Josey Youssef MD - 04/07/2025 9:49 AM Chito Youssef MD - 04/07/2025 9:48 AM Chito Youssef MD - 04/07/2025 9:48 AM Chito Youssef MD - 04/07/2025 9:30 AM EDT Note Date & Type Note Facility 04-07-2025 History of Present illness Narrative Associated Problem(s): Major depressive disorder, single episode, mild This is a chronic medical condition that is stable since last assessment. No changes in treatment are suggested at this time. Continue Current meds. Associated Problem(s): Type 2 diabetes mellitus (HCC) No Tobacco use Follow ADA 1800 diet low carbohydrate Continue Med Compliance Goal LDL less than 100 Goal BP 130/80 Goal HgbA1c < 7.0% Monitor Feet, monitor for infection Needs Exercise Yearly eye exams Prior to your visit today we reviewed your chart and outlined testing and treatment needed for your care. Reviewed poissble complications of diabetes including, loss of vision, kidney failure and increased risk of heart attacks and stroke. We made recommendations on how to control your blood sugars, and minimize your risk of these complications. We discussed your current barriers to a healthy living and importance of healthy diet and exercise. Associated Problem(s): Essential hypertension Our specific goals, for your hypertension, is to keep your blood pressure less than 140/90, and the importance of weight control. We made recommendations on how to control your blood pressure, and minimize your risk of these copmplications. We also discussed your current barriers to a healthy living and importance of healthy diet and exercise. Prior to your visit today we have reviewed your chart and formed a plan to assist with providing you the best possible care. We reviewed the possible complications of hypertension including, stroke, heart failure and kidney impairment. In addition, we discussed your medications, the importance of taking them as prescribed. DASH diet handouts Images from the original note were not included. HPI Diabetes Additional comments: Last 12.03 Last edited by Elysia Escobar MA on 04/07/2025 7:17 AM. Subjective Patient ID: Dhara Dallas is a 54 y.o. female who presents for Diabetes (Last 12.03). Pt stated that she has been getting dizzy since the increase in there amlodipine, dizzy, eyes will go black , will try to stand up slower but it still affects her Pt is having more anxiety lately, really missing her mom depression is about the same 36 week Grand son is in NICU and needed O2 2 [employer] dies within 2 months of each other Pt states the ozCoferonic is not working for her anymore not losing weight right now Pt is still having migraines ,nurtec does help but not every time if it does not help she will just go to sleep Diabetes She presents for her follow-up diabetic visit. She has type 2 diabetes mellitus. No MedicAlert identification noted. The initial diagnosis of diabetes was made 2 years ago. Her disease course has been stable. Hypoglycemia symptoms include headaches. Pertinent negatives for diabetes include no chest pain, no polydipsia, no polyphagia and no weakness. There are no hypoglycemic complications. Symptoms are stable. Pertinent negatives for diabetic complications include no CVA, heart disease, peripheral neuropathy or PVD. There are no known risk factors for coronary artery disease. Current diabetic treatment includes oral agent (dual therapy). She is compliant with treatment all of the time. She is following a diabetic diet. She has not had a previous visit with a dietitian. She rarely participates in exercise. There is no change in her home blood glucose trend. An JESÚS inhibitor/angiotensin II receptor reyes is not being taken. She does not see a toll mechanic. Over the past 2 weeks, how often have you been bothered by any of the following problems? Little interest or pleasure in doing things: Not at all Feeling down, depressed, or hopeless: Not at all Patient Health Questionnaire-2 Score: 0 Current Outpatient Medications on File Prior to Visit Medication Sig Dispense Refill albuterol HFA 90 mcg/act inhaler ALPRAZolam (Xanax) 0.5 MG tablet TAKE 1 TABLET BY MOUTH EVERY MORNING AND TAKE 1 TABLET BY MOUTH EVERY NIGHT AT BEDTIME 60 tablet 0 aspirin 81 MG EC tablet 1 (one) time each day at the same time. atorvastatin (Lipitor) 40 MG tablet TAKE 1 TABLET BY MOUTH DAILY 100 tablet 3 Calcium Carbonate-Vit D-Min (CALCIUM 1200 PO) Take 2 tablets by mouth Daily cyclobenzaprine (Flexeril) 5 MG tablet TAKE 1 TABLET BY MOUTH 3 TIMES A DAY 90 tablet 1 diclofenac sodium (Voltaren XR) 100 mg 24 hr tablet TAKE 1 TABLET BY MOUTH DAILY 30 tablet 2 DULoxetine (Cymbalta) [address] capsule Take 1 capsule (30 mg) by mouth Daily 100 capsule 3 DULoxetine (Cymbalta) [address] capsule TAKE 1 CAPSULE BY MOUTH DAILY 100 capsule 3 furosemide (Lasix) 20 MG tablet TAKE 1 TABLET(20 MG) BY MOUTH DAILY 100 tablet 1 gabapentin (Neurontin) 300 MG capsule Take 1 capsule (300 mg) by mouth in the morning and 1 capsule (300 mg) in the evening and 1 capsule (300 mg) before bedtime. Do all this for 10 days. 30 capsule 0 ipratropium-albuterol (Duo-Neb) 0.5-2.5 mg/3 mL nebulizer solution loratadine (Claritin) 10 MG tablet 1 (one) time each day at the same time. metFORMIN (Glucophage) 500 MG tablet TAKE 1 TABLET BY MOUTH DAILY WITH A MEAL 100 tablet 3 montelukast (Singulair) 10 MG tablet coxgqfchwlda-flld-qapkbzyt-folic acid (Centrum Silver, geriatric,) tablet as directed Orally nystatin (Mycostatin) 712579 UNIT/ML suspension OLANZapine (ZyPREXA) 10 MG tablet TAKE 1 TABLET BY MOUTH DAILY 100 tablet 3 omega-3 (fish oil) 1000 MG capsule 1 capsule 1 (one) time each day at the same time. omeprazole (PriLOSEC) [address] capsule TAKE 1 CAPSULE BY MOUTH EVERY MORNING BEFORE MEALS, DO NOT CRUSH OR CHEW 100 capsule 3 potassium chloride CR (Klor-Con) 10 MEQ ER tablet every 12 (twelve) hours. Rimegepant Sulfate (Nurtec) 75 MG tablet dispersible DISSOLVE 1 TABLET BY MOUTH EVERY OTHER DAY FOR PREVENTATIVE 15 tablet 2 traMADol (Ultram) 50 MG tablet TAKE ONE TABLET BY MOUTH FOUR TIMES A DAY NEEDED 120 tablet 0 zinc gluconate 50 MG tablet Take 50 mg by mouth Daily [DISCONTINUED] amLODIPine (Norvasc) 10 MG tablet TAKE 1 TABLET BY MOUTH DAILY 100 tablet 3 [DISCONTINUED] Ozempic, 1 MG/DOSE, 4 MG/3ML solution pen-injector [DISCONTINUED] semaglutide (Ozempic, 1 MG/DOSE,) 2 MG/1.5ML solution pen-injector Inject 1 mg under the skin 1 (one) time per week 3 mL 5 No current facility-administered medications on file prior to visit. I have reviewed and reconciled the history and medication list with the patient today. Allergies Allergen Reactions Hydromorphone Itching Other Reaction(s): Unknown Social History Tobacco Use Smoking status: Former Average packs/day: 1 pack/day for 39.0 years (39.0 ttl pk-yrs) Types: Cigarettes Start date: 1984 Smokeless tobacco: Never Vaping Use Vaping status: Never Used Substance Use Topics Alcohol use: Yes Comment: 1-2 drinks monthly or less, caffeine yes coffee,soda Drug use: Defer Family History Problem Relation Name Age of Onset Other (Cancer, DM HTN) Mother 06/2023 Cervical cancer Mother Diabetes Mother Other (htn) Mother Diabetes Maternal Grandmother Colon cancer Maternal Grandfather Diabetes Paternal Grandmother Stroke Paternal Grandfather Heart disease Paternal Grandfather Psoriasis Other Family history Past Medical History: Diagnosis Date Allergies Anemia Anxiety Cancer (HCC) dysplasia cancer Depression Gallbladder disease H/O hemorrhoids History of Doppler ultrasound 10/07/2020 U/S venous dopplers negative History of MRI 12/15/2022 MRI Moderate-marked foramen narrowing L3-L4 through L5-S1 predominantly due to degenerative facet arhropathy, but mild disc bulging contributes as well. Projecting from left kidney is a 1.6 cm complex cyst versus mass. IBD (inflammatory bowel disease) Irritable bowel disease Respiratory failure with hypoxia (HCC) 01/11/2023 Sepsis (HCC) 01/11/2023 Past Surgical History: Procedure Laterality Date APPENDECTOMY 1986 SECTION, LOW TRANSVERSE 1994 CHOLECYSTECTOMY [address] Fletcher HEMORRHOIDECTOMY HYSTERECTOMY 2004 Visit Vitals BP 138/88 Pulse 90 Ht 5' 5 Wt 217 lb SpO2 96% BMI 36.11 kg/m Smoking Status Former BSA 2.12 m Review of Systems Respiratory: Negative for shortness of breath. Cardiovascular: Negative for chest pain. Genitourinary: Negative for dysuria and frequency. Neurological: Positive for headaches. Negative for weakness. Endocrine: Negative for polydipsia and polyphagia. Objective Physical Exam Constitutional: General: She is not in acute distress. Appearance: Normal appearance. HENT: Head: Normocephalic. Neck: Vascular: No carotid bruit. Cardiovascular: Rate and Rhythm: Normal rate and regular rhythm. Pulmonary: Effort: Pulmonary effort is normal. No respiratory distress. Breath sounds: Normal breath sounds. Neurological: General: No focal deficit present. Mental Status: She is alert and oriented to person, place, and time. Psychiatric: Mood and Affect: Mood normal. Office Visit on 04/07/2025 Component Date Value Ref Range Status Hemoglobin A1C 04/07/2025 5.5 Final Assessment/Plan Problem List Items Addressed This Visit Essential hypertension Our specific goals, for your hypertension, is to keep your blood pressure less than 140/90, and the importance of weight control. We made recommendations on how to control your blood pressure, and minimize your risk of these copmplications. We also discussed your current barriers to a healthy living and importance of healthy diet and exercise. Prior to your visit today we have reviewed your chart and formed a plan to assist with providing you the best possible care. We reviewed the possible complications of hypertension including, stroke, heart failure and kidney impairment. In addition, we discussed your medications, the importance of taking them as prescribed. DASH diet handouts Relevant Medications amLODIPine (Norvasc) 5 MG tablet Type 2 diabetes mellitus (HCC) No Tobacco use Follow ADA 1800 diet low carbohydrate Continue Med Compliance Goal LDL less than 100 Goal BP 130/80 Goal HgbA1c < 7.0% Monitor Feet, monitor for infection Needs Exercise Yearly eye exams Prior to your visit today we reviewed your chart and outlined testing and treatment needed for your care. Reviewed poissble complications of diabetes including, loss of vision, kidney failure and increased risk of heart attacks and stroke. We made recommendations on how to control your blood sugars, and minimize your risk of these complications. We discussed your current barriers to a healthy living and importance of healthy diet and exercise. Relevant Medications Semaglutide, 2 MG/DOSE, 8 MG/3ML solution pen-injector Other Relevant Orders POCT Glycated hemoglobin, total (Completed) Major depressive disorder, single episode, mild This is a chronic medical condition that is stable since last assessment. No changes in treatment are suggested at this time. Continue Current meds. Relevant Medications Dextromethorphan-buPROPion ER (Auvelity) 45-105 MG tablet controlled-release Spinal stenosis of lumbar region - Primary Relevant Orders Ambulatory referral to Pain Medicine Follow up in about 3 months (around 07/07/2025) for Recheck, Anxiety Meds F/U. documented in this encounter [facility] 09-11-2024 History of Present illness Narrative Images from the original note were not included. Subjective Patient ID: Dhara Dallas is a 54 y.o. female who presents for rash. Dhara is present today for evaluation of rash. Admits day before yesterday she noticed a rash on the under side of her left arm with some redness, burning. It has now spread to axillary area of her left side and on the upper left side of back. She has not been using anything on her rash. Quit smoking 4 months ago and is doing well. States her taste and smell have improved. States is no longer coughing like she was while she was smoking. Current Outpatient Medications on File Prior to Visit Medication Sig Dispense Refill ALPRAZolam (Xanax) 0.5 MG tablet TAKE 1 TABLET BY MOUTH EVERY MORNING AND TAKE 1 TABLET BEFORE BEDTIME 60 tablet 0 albuterol HFA 90 mcg/act inhaler amLODIPine (Norvasc) 10 MG tablet TAKE 1 TABLET BY MOUTH DAILY 100 tablet 3 aspirin 81 MG EC tablet 1 (one) time each day at the same time. atorvastatin (Lipitor) 40 MG tablet TAKE 1 TABLET BY MOUTH DAILY 100 tablet 3 Calcium Carbonate-Vit D-Min (CALCIUM 1200 PO) Take 2 tablets by mouth Daily cyclobenzaprine (Flexeril) 5 MG tablet TAKE 1 TABLET BY MOUTH 3 TIMES A DAY 90 tablet 1 diclofenac sodium (Voltaren XR) 100 mg 24 hr tablet TAKE 1 TABLET BY MOUTH DAILY 100 tablet 1 DULoxetine (Cymbalta) [address] capsule TAKE 1 CAPSULE BY MOUTH DAILY 30 capsule 2 DULoxetine (Cymbalta) [address] capsule TAKE 1 CAPSULE BY MOUTH DAILY 100 capsule 3 furosemide (Lasix) 20 MG tablet Take 1 tablet (20 mg) by mouth Daily 100 tablet 1 ipratropium-albuterol (Duo-Neb) 0.5-2.5 mg/3 mL nebulizer solution loratadine (Claritin) 10 MG tablet 1 (one) time each day at the same time. metFORMIN (Glucophage) 500 MG tablet TAKE 1 TABLET BY MOUTH DAILY WITH A MEAL 100 tablet 3 montelukast (Singulair) 10 MG tablet amcgkilmzkdo-jytb-oltlqycv-folic acid (Centrum Silver, geriatric,) tablet as directed Orally nystatin (Mycostatin) 081535 UNIT/ML suspension OLANZapine (ZyPREXA) 10 MG tablet TAKE 1 TABLET BY MOUTH DAILY 100 tablet 3 omega-3 (fish oil) 1000 MG capsule 1 capsule 1 (one) time each day at the same time. omeprazole (PriLOSEC) [address] capsule TAKE 1 CAPSULE BY MOUTH EVERY MORNING BEFORE MEALS, DO NOT CRUSH OR CHEW 100 capsule 3 potassium chloride CR (Klor-Con) 10 MEQ ER tablet every 12 (twelve) hours. Rimegepant Sulfate (Nurtec) 75 MG tablet dispersible Take 1 every other day for preventative 30 tablet 11 semaglutide (Ozempic, 1 MG/DOSE,) 2 MG/1.5ML solution pen-injector Inject 1 mg under the skin 1 (one) time per week 3 mL 5 traMADol (Ultram) 50 MG tablet TAKE ONE TABLET BY MOUTH FOUR TIMES A DAY NEEDED 120 tablet 0 zinc gluconate 50 MG tablet Take 50 mg by mouth Daily No current facility-administered medications on file prior to visit. I have reviewed and reconciled the history and medication list with the patient today. Allergies Allergen Reactions Hydromorphone Itching Other Reaction(s): Unknown Social History Tobacco Use Smoking status: Former Average packs/day: 1 pack/day for 39.0 years (39.0 ttl pk-yrs) Types: Cigarettes Start date: 1984 Smokeless tobacco: Never Vaping Use Vaping status: Never Used Substance Use Topics Alcohol use: Yes Comment: 1-2 drinks monthly or less, caffeine yes coffee,soda Drug use: Defer Family History Problem Relation Name Age of Onset Other (Cancer, DM HTN) Mother 06/2023 Cervical cancer Mother Diabetes Mother Other (htn) Mother Diabetes Maternal Grandmother Colon cancer Maternal Grandfather Diabetes Paternal Grandmother Stroke Paternal Grandfather Heart disease Paternal Grandfather Psoriasis Other Family history Past Medical History: Diagnosis Date Allergies Anemia Anxiety Cancer (CMS/HCC) dysplasia cancer Depression (CMS/HCC) Gallbladder disease H/O hemorrhoids History of Doppler ultrasound 10/07/2020 U/S venous dopplers negative History of MRI 12/15/2022 MRI Moderate-marked foramen narrowing L3-L4 through L5-S1 predominantly due to degenerative facet arhropathy, but mild disc bulging contributes as well. Projecting from left kidney is a 1.6 cm complex cyst versus mass. IBD (inflammatory bowel disease) Irritable bowel disease Respiratory failure with hypoxia ([facility]) 01/11/2023 Sepsis (CMS/[facility]) 01/11/2023 Past Surgical History: Procedure Laterality Date APPENDECTOMY 1986 SECTION, LOW TRANSVERSE 1994 CHOLECYSTECTOMY [address] Fletcher HEMORRHOIDECTOMY HYSTERECTOMY 2004 Visit Vitals BP 138/84 Pulse 82 Resp 16 Ht 5' 5 Wt 208 lb 9.6 oz SpO2 95% BMI 34.71 kg/m Smoking Status Former BSA 2.08 m Review of Systems Constitutional: Negative for chills, fatigue and fever. Respiratory: Negative for cough, shortness of breath and wheezing. Cardiovascular: Negative for chest pain, palpitations and leg swelling. Gastrointestinal: Negative for abdominal pain, constipation, diarrhea, nausea and vomiting. Skin: Positive for rash. Objective Physical Exam Constitutional: General: She is not in acute distress. Appearance: She is well-developed. She is obese. HENT: Head: Normocephalic and atraumatic. Eyes: General: No scleral icterus. Conjunctiva/sclera: Conjunctivae normal. Cardiovascular: Rate and Rhythm: Normal rate and regular rhythm. Heart sounds: Normal heart sounds. No murmur heard. Pulmonary: Effort: Pulmonary effort is normal. No respiratory distress. Breath sounds: Normal breath sounds. No wheezing, rhonchi or rales. Skin: General: Skin is warm and dry. Findings: Rash present. Comments: Clusters of mildly vesicular, papular lesions, erythematous base along T2 dermatome on left, painful, no active drainage. See photo. Neurological: General: No focal deficit present. Mental Status: She is alert and oriented to person, place, and time. Psychiatric: Mood and Affect: Mood normal. Behavior: Behavior normal. Assessment/Plan Diagnoses and all orders for this visit: Herpes zoster without complication - valACYclovir (Valtrex) 1 g tablet; Take 1 tablet (1,000 mg) by mouth in the morning and 1 tablet (1,000 mg) in the evening and 1 tablet (1,000 mg) before bedtime. Do all this for 7 days. - gabapentin (Neurontin) 300 MG capsule; Take 1 capsule (300 mg) by mouth in the morning and 1 capsule (300 mg) in the evening and 1 capsule (300 mg) before bedtime. Do all this for 10 days. Discussed Shingles with the patient. Advised pt that it is a virus and as such is self limiting. However, I will provide the patient with a prescription for Valacyclovir. Advised this is an anti-viral, not a cure, but should help decrease intensity and duration of symptoms. Advised patient is considered contagious until the lesions have completely scabbed over and are almost healed. Keep area covered, especially if draining. Encouraged pt to stay hydrated, get plenty of rest. Advised pt of potential complications of Shingles, including post-herpetic neuralgia. Can take Tylenol prn for pain, also sent in Gabapentin for pt. She has been on it in the past and tolerated it well and felt it was helpful. Follow up as needed. Former smoker Congratulated patient on smoking cessation. The patient was counseled on the importance of maintaining cigarette smoking abstinence. The patient continues to refrain from smoking and is committed to avoiding tobacco use. Diabetic nephropathy associated with type 2 diabetes mellitus (HCC) ([facility]/HCC) - Microalbumin / creatinine urine ratio; Future Urine sample obtained today for Microalbumin testing. Follow up for Appointment As Scheduled. documented in this encounter [facility] 08-12-2024 History of Present illness Narrative Images from the original note were not included. Subjective Patient ID: Dhara Dallas is a 54 y.o. female who presents for sinus issues. Neil presents today for sinus congestion with a cough, ear pain and headache. She was put on a z pack on 08/05/24. She was feeling better but now everything is coming. Sinusitis This is a recurrent problem. The current episode started 1 to 4 weeks ago. The problem has been gradually worsening since onset. The maximum temperature recorded prior to her arrival was 100.4 - 100.9 F. The fever has been present for 1 to 2 days. Associated symptoms include congestion, coughing, headaches, a hoarse voice, sinus pressure, sneezing and a sore throat. Past treatments include antibiotics, oral decongestants and acetaminophen. The treatment provided mild relief. Current Outpatient Medications on File Prior to Visit Medication Sig Dispense Refill ALPRAZolam (Xanax) 0.5 MG tablet TAKE 1 TABLET BY MOUTH EVERY MORNING AND TAKE 1 TABLET BEFORE BEDTIME 60 tablet 0 albuterol HFA 90 mcg/act inhaler amLODIPine (Norvasc) 10 MG tablet TAKE ONE TABLET BY MOUTH DAILY 100 tablet 3 aspirin 81 MG EC tablet 1 (one) time each day at the same time. atorvastatin (Lipitor) 40 MG tablet TAKE 1 TABLET BY MOUTH DAILY 100 tablet 1 [] azithromycin (Zithromax) 250 MG tablet Take 2 tablets (500 mg) by mouth Daily for 1 day, THEN 1 tablet (250 mg) Daily for 4 days. 6 tablet 0 cyclobenzaprine (Flexeril) 5 MG tablet TAKE 1 TABLET BY MOUTH 3 TIMES A DAY 90 tablet 1 diclofenac sodium (Voltaren XR) 100 mg 24 hr tablet TAKE 1 TABLET BY MOUTH DAILY 100 tablet 1 DULoxetine (Cymbalta) [address] capsule TAKE 1 CAPSULE BY MOUTH DAILY 30 capsule 2 DULoxetine (Cymbalta) [address] capsule TAKE 1 CAPSULE BY MOUTH DAILY 100 capsule 1 Akvyndgykwo-Lmotzjsss-Lsmunp (Trelegy Ellipta) 100-62.5-25 MCG/ACT aerosol powder Inhale 1 puff in the morning. 1 each 11 furosemide (Lasix) 20 MG tablet Take 1 tablet (20 mg) by mouth Daily 100 tablet 1 ipratropium-albuterol (Duo-Neb) 0.5-2.5 mg/3 mL nebulizer solution loratadine (Claritin) 10 MG tablet 1 (one) time each day at the same time. metFORMIN (Glucophage) 500 MG tablet TAKE ONE TABLET BY MOUTH DAILY WITH A MEAL 100 tablet 1 montelukast (Singulair) 10 MG tablet jpmiaaprdtnd-umym-rpmzkkje-folic acid (Centrum Silver, geriatric,) tablet as directed Orally nystatin (Mycostatin) 008541 UNIT/ML suspension OLANZapine (ZyPREXA) 10 MG tablet TAKE 1 TABLET BY MOUTH DAILY 100 tablet 1 omega-3 (fish oil) 1000 MG capsule 1 capsule 1 (one) time each day at the same time. omeprazole (PriLOSEC) [address] capsule TAKE 1 CAPSULE BY MOUTH EVERY MORNING BEFORE MEALS, DO NOT CRUSH OR CHEW 100 capsule 3 ondansetron (Zofran) 4 MG tablet TAKE 1 TABLET BY MOUTH EVERY 6 HOURS NEEDED FOR NAUSEA AND VOMITING potassium chloride CR (Klor-Con) 10 MEQ ER tablet every 12 (twelve) hours. Rimegepant Sulfate (Nurtec) 75 MG tablet dispersible Take 1 every other day for preventative 30 tablet 11 semaglutide (Ozempic, 1 MG/DOSE,) 2 MG/1.5ML solution pen-injector Inject 1 mg under the skin 1 (one) time per week 3 mL 5 traMADol (Ultram) 50 MG tablet TAKE ONE TABLET BY MOUTH FOUR TIMES A DAY NEEDED 120 tablet 0 [DISCONTINUED] ALPRAZolam (Xanax) 0.5 MG tablet Take 1 tablet (0.5 mg) by mouth in the morning and 1 tablet (0.5 mg) before bedtime. 60 tablet 0 No current facility-administered medications on file prior to visit. I have reviewed and reconciled the history and medication list with the patient today. Allergies Allergen Reactions Hydromorphone Itching Other Reaction(s): Unknown Social History Tobacco Use Smoking status: Every Day Current packs/day: 1.00 Types: Cigarettes Smokeless tobacco: Never Vaping Use Vaping status: Never Used Substance Use Topics Alcohol use: Yes Comment: 1-2 drinks monthly or less, caffeine yes coffee,soda Drug use: Defer Family History Problem Relation Name Age of Onset Other (Cancer, DM HTN) Mother 06/2023 Cervical cancer Mother Diabetes Mother Other (htn) Mother Diabetes Maternal Grandmother Colon cancer Maternal Grandfather Diabetes Paternal Grandmother Stroke Paternal Grandfather Heart disease Paternal Grandfather Psoriasis Other Family history Past Medical History: Diagnosis Date Allergies Anemia Anxiety Cancer (CMS/HCC) dysplasia cancer Depression (CMS/HCC) Gallbladder disease H/O hemorrhoids History of Doppler ultrasound 10/07/2020 U/S venous dopplers negative History of MRI 12/15/2022 MRI Moderate-marked foramen narrowing L3-L4 through L5-S1 predominantly due to degenerative facet arhropathy, but mild disc bulging contributes as well. Projecting from left kidney is a 1.6 cm complex cyst versus mass. IBD (inflammatory bowel disease) Irritable bowel disease Respiratory failure with hypoxia (CMS/HCC) 01/11/2023 Sepsis (CMS/HCC) 01/11/2023 Past Surgical History: Procedure Laterality Date APPENDECTOMY 1985 SECTION, LOW TRANSVERSE 1994 CHOLECYSTECTOMY [address] Fletcher HEMORRHOIDECTOMY HYSTERECTOMY 2004 Visit Vitals Smoking Status Every Day Review of Systems HENT: Positive for congestion, hoarse voice, sinus pressure, sneezing and sore throat. Respiratory: Positive for cough. Neurological: Positive for headaches. Objective Physical Exam Vitals reviewed. Constitutional: Appearance: Normal appearance. HENT: Head: Normocephalic. Right Ear: A middle ear effusion is present. Left Ear: A middle ear effusion is present. Mouth/Throat: Mouth: Mucous membranes are moist. Pharynx: Posterior oropharyngeal erythema and postnasal drip present. Eyes: Conjunctiva/sclera: Conjunctivae normal. Cardiovascular: Rate and Rhythm: Normal rate and regular rhythm. Pulmonary: Effort: Pulmonary effort is normal. Breath sounds: Normal breath sounds. Skin: General: Skin is warm and dry. Neurological: General: No focal deficit present. Mental Status: She is alert and oriented to person, place, and time. Psychiatric: Mood and Affect: Mood normal. Behavior: Behavior normal. Assessment/Plan Diagnoses and all orders for this visit: Pansinusitis, unspecified chronicity - azithromycin (Zithromax) 250 MG tablet; Take 2 tablets (500 mg) by mouth Daily for 1 day, THEN 1 tablet (250 mg) Daily for 4 days. - methylPREDNISolone (Medrol Dospak) 4 MG tablets; Follow schedule on package instructions Start the above as directed. Reviewed potential s/e with patient. Encouraged probiotic while on antibiotic. Increase water intake, get plenty of rest. Can take OTC allergy medication for symptomatic relief. Tylenol prn. Follow up if no improvement in one week. No motrin while on steroid as this can increase the risk of GI bleed. Type 2 diabetes mellitus with other specified complication ([facility]) We discussed today, the importance of proper diabetic control. We discussed possible complications of diabetes, including loss of vision, renal failure, increased risk of heart attacks and strokes, blood vessel and/or nerve damage. We discussed the recommended changes to reduce your blood sugars and minimize the risk of these complications. We discussed diabetic goals, including keeping A1C <7.0% and blood pressure < 130/70. The plan for achieving these goals is adherence to medications, diet, and regular activity as discussed during today's visit. We discussed current barriers to achieving these goals. We discussed dietary goals. We discussed calorie counting, as well as decreasing carbohydrate and simple sugar intake. Reviewed portion control with the patient. If the patient still has questions on this, a referral to a Dietitian can be arranged. I reviewed medications that aid in diabetic control. We discussed proper dosing and educated the patient on possible side effects and complications. The patient verbalized understanding of these instructions. Type 2 diabetes mellitus without complications ([facility]) We discussed today, the importance of proper diabetic control. We discussed possible complications of diabetes, including loss of vision, renal failure, increased risk of heart attacks and strokes, blood vessel and/or nerve damage. We discussed the recommended changes to reduce your blood sugars and minimize the risk of these complications. We discussed diabetic goals, including keeping A1C <7.0% and blood pressure < 130/70. The plan for achieving these goals is adherence to medications, diet, and regular activity as discussed during today's visit. We discussed current barriers to achieving these goals. We discussed dietary goals. We discussed calorie counting, as well as decreasing carbohydrate and simple sugar intake. Reviewed portion control with the patient. If the patient still has questions on this, a referral to a Dietitian can be arranged. I reviewed medications that aid in diabetic control. We discussed proper dosing and educated the patient on possible side effects and complications. The patient verbalized understanding of these instructions. Type 2 diabetes mellitus with diabetic nephropathy ([facility]) We discussed today, the importance of proper diabetic control. We discussed possible complications of diabetes, including loss of vision, renal failure, increased risk of heart attacks and strokes, blood vessel and/or nerve damage. We discussed the recommended changes to reduce your blood sugars and minimize the risk of these complications. We discussed diabetic goals, including keeping A1C <7.0% and blood pressure < 130/70. The plan for achieving these goals is adherence to medications, diet, and regular activity as discussed during today's visit. We discussed current barriers to achieving these goals. We discussed dietary goals. We discussed calorie counting, as well as decreasing carbohydrate and simple sugar intake. Reviewed portion control with the patient. If the patient still has questions on this, a referral to a Dietitian can be arranged. I reviewed medications that aid in diabetic control. We discussed proper dosing and educated the patient on possible side effects and complications. The patient verbalized understanding of these instructions. Morbid (severe) obesity due to excess calories (CMS/HCC) Discussed goal of BMI < 30. Advised on weight loss options. Encouraged diet and exercise. Discussed with patient appropriate lifestyle modification changes necessary for weight management, heart healthy eating and overall health promotion. Discussed minimizing high carb, high sugar, high sodium, portion control, and processed foods while making healthy choice replacements. Additionally discussed recommendations of 30 minutes of aerobic exercise at least 5 days per week, that includes, walking, and chair exercises. . Instructed importance of drinking adequate water consumption (if not on fluid restriction) with minimal sugar and caffiene. Chronic obstructive pulmonary disease, unspecified (CMS/HCC) This is a chronic medical condition that is stable since last assessment. No changes in treatment are suggested at this time. Other specified chronic obstructive pulmonary disease (CMS/HCC) This is a chronic medical condition that is stable since last assessment. No changes in treatment are suggested at this time. No follow-ups on file. documented in this encounter [facility] 06-18-2024 Telephone encounter Note OARRS reviewed, Rx sent into patient's pharmacy. [facility] 06-18-2024 Miscellaneous Notes OARRS reviewed, Rx sent into patient's pharmacy. documented in this encounter [facility] 09-30-2024 History of Present illness Narrative Images from the original note were not included. Subjective Patient ID: Dhara Dallas is a 53 y.o. female who presents for wellness. Subjective Dhara Dallas is a 53 y.o. female and is here for a comprehensive physical exam. The patient reports no problems. Current Outpatient Medications on File Prior to Visit Medication Sig Dispense Refill albuterol HFA 90 mcg/act inhaler ALPRAZolam (Xanax) 0.5 MG tablet Take 1 tablet (0.5 mg) by mouth in the morning and 1 tablet (0.5 mg) before bedtime. 60 tablet 0 amLODIPine (Norvasc) 10 MG tablet TAKE ONE TABLET BY MOUTH DAILY 100 tablet 3 aspirin 81 MG EC tablet 1 (one) time each day at the same time. atorvastatin (Lipitor) 40 MG tablet TAKE 1 TABLET BY MOUTH DAILY 100 tablet 1 cyclobenzaprine (Flexeril) 5 MG tablet TAKE 1 TABLET BY MOUTH 3 TIMES A DAY 90 tablet 1 diclofenac sodium (Voltaren XR) 100 mg 24 hr tablet TAKE 1 TABLET BY MOUTH DAILY 100 tablet 1 DULoxetine (Cymbalta) [address] capsule TAKE 1 CAPSULE BY MOUTH DAILY 30 capsule 2 DULoxetine (Cymbalta) [address] capsule TAKE 1 CAPSULE BY MOUTH DAILY 100 capsule 1 Xwgtsxeismf-Nkmxkjpwn-Duvqvp (Trelegy Ellipta) 100-62.5-25 MCG/ACT aerosol powder Inhale 1 puff in the morning. 1 each 11 furosemide (Lasix) 20 MG tablet Take 1 tablet (20 mg) by mouth Daily 100 tablet 1 ipratropium-albuterol (Duo-Neb) 0.5-2.5 mg/3 mL nebulizer solution loratadine (Claritin) 10 MG tablet 1 (one) time each day at the same time. metFORMIN (Glucophage) 500 MG tablet TAKE ONE TABLET BY MOUTH DAILY WITH A MEAL 100 tablet 1 montelukast (Singulair) 10 MG tablet jrymcvsnoihd-ctlr-eyzolmnd-folic acid (Centrum Silver, geriatric,) tablet as directed Orally nystatin (Mycostatin) 494539 UNIT/ML suspension OLANZapine (ZyPREXA) 10 MG tablet TAKE 1 TABLET BY MOUTH DAILY 100 tablet 1 omega-3 (fish oil) 1000 MG capsule 1 capsule 1 (one) time each day at the same time. omeprazole (PriLOSEC) [address] capsule Take 1 capsule (40 mg) by mouth in the morning. Take before meals. Do not crush or chew.. 100 capsule 0 ondansetron (Zofran) 4 MG tablet TAKE 1 TABLET BY MOUTH EVERY 6 HOURS NEEDED FOR NAUSEA AND VOMITING potassium chloride CR (Klor-Con) 10 MEQ ER tablet every 12 (twelve) hours. Rimegepant Sulfate (Nurtec) 75 MG tablet dispersible Take 1 every other day for preventative 30 tablet 11 traMADol (Ultram) 50 MG tablet TAKE ONE TABLET BY MOUTH FOUR TIMES A DAY NEEDED 120 tablet 0 [DISCONTINUED] cyclobenzaprine (Flexeril) 5 MG tablet TAKE ONE TABLET BY MOUTH THREE TIMES A DAY 90 tablet 1 [DISCONTINUED] gabapentin (Neurontin) 300 MG capsule [DISCONTINUED] ofloxacin (Ocuflox) 0.3 % ophthalmic solution Four times daily [DISCONTINUED] semaglutide (Ozempic, 1 MG/DOSE,) 2 MG/1.5ML solution pen-injector Inject 1 mg under the skin 1 (one) time per week 2 each 12 No current facility-administered medications on file prior to visit. I have reviewed and reconciled the history and medication list with the patient today. Allergies Allergen Reactions Hydromorphone Itching Other Reaction(s): Unknown Social History Tobacco Use Smoking status: Every Day Current packs/day: 1.00 Types: Cigarettes Smokeless tobacco: Never Vaping Use Vaping status: Never Used Substance Use Topics Alcohol use: Yes Comment: 1-2 drinks monthly or less, caffeine yes coffee,soda Family History Problem Relation Name Age of Onset Other (Cancer, DM HTN) Mother 06/2023 Cervical cancer Mother Diabetes Mother Other (htn) Mother Diabetes Maternal Grandmother Colon cancer Maternal Grandfather Diabetes Paternal Grandmother Stroke Paternal Grandfather Heart disease Paternal Grandfather Psoriasis Other Family history Past Medical History: Diagnosis Date Allergies Anemia Anxiety Cancer (CMS/HCC) dysplasia cancer Depression (CMS/HCC) Gallbladder disease H/O hemorrhoids History of Doppler ultrasound 10/07/2020 U/S venous dopplers negative History of MRI 12/15/2022 MRI Moderate-marked foramen narrowing L3-L4 through L5-S1 predominantly due to degenerative facet arhropathy, but mild disc bulging contributes as well. Projecting from left kidney is a 1.6 cm complex cyst versus mass. IBD (inflammatory bowel disease) Irritable bowel disease Respiratory failure with hypoxia ([facility]) 01/11/2023 Sepsis (CMS/HCC) 01/11/2023 Past Surgical History: Procedure Laterality Date APPENDECTOMY 1986 SECTION, LOW TRANSVERSE 1994 CHOLECYSTECTOMY [address] Fletcher HEMORRHOIDECTOMY HYSTERECTOMY 2004 Visit Vitals BP 124/84 Pulse 99 Resp 16 Ht 5' 5 Wt 209 lb 12.8 oz SpO2 93% BMI 34.91 kg/m Smoking Status Every Day BSA 2.09 m Review of Systems Constitutional: Negative for chills, fatigue and fever. HENT: Negative for congestion, ear pain, rhinorrhea and sore throat. Eyes: Negative for pain, discharge and visual disturbance. Respiratory: Negative for cough, shortness of breath and wheezing. Cardiovascular: Negative for chest pain, palpitations and leg swelling. Gastrointestinal: Negative for abdominal pain, constipation, diarrhea, nausea and vomiting. Genitourinary: Negative for difficulty urinating, dysuria and frequency. Musculoskeletal: Positive for back pain (Improving). Negative for arthralgias. Skin: Negative for rash. Neurological: Negative for dizziness and numbness. Psychiatric/Behavioral: Negative for sleep disturbance. The patient is not nervous/anxious. Objective Physical Exam Constitutional: General: She is not in acute distress. Appearance: She is well-developed. She is obese. HENT: Head: Normocephalic and atraumatic. Right Ear: Tympanic membrane and ear canal normal. Left Ear: Tympanic membrane and ear canal normal. Nose: Nose normal. Right Turbinates: Not swollen. Left Turbinates: Not swollen. Comments: Septum erythematous Mouth/Throat: Mouth: Mucous membranes are moist. Pharynx: No posterior oropharyngeal erythema. Eyes: General: No scleral icterus. Extraocular Movements: Extraocular movements intact. Conjunctiva/sclera: Conjunctivae normal. Pupils: Pupils are equal, round, and reactive to light. Neck: Thyroid: No thyromegaly. Trachea: Trachea normal. Cardiovascular: Rate and Rhythm: Normal rate and regular rhythm. Heart sounds: Normal heart sounds. No murmur heard. Pulmonary: Effort: Pulmonary effort is normal. No respiratory distress. Breath sounds: Examination of the right-middle field reveals wheezing. Wheezing present. No rhonchi or rales. Abdominal: General: Bowel sounds are normal. There is no distension. Palpations: Abdomen is soft. Tenderness: There is no abdominal tenderness. There is no guarding. Musculoskeletal: General: No swelling or deformity. Normal range of motion. Cervical back: Normal range of motion and neck supple. No tenderness. Lymphadenopathy: Cervical: No cervical adenopathy. Skin: General: Skin is warm and dry. Capillary Refill: Capillary refill takes less than 2 seconds. Findings: No rash. Neurological: General: No focal deficit present. Mental Status: She is alert and oriented to person, place, and time. Cranial Nerves: No cranial nerve deficit. Sensory: No sensory deficit. Motor: No weakness. Gait: Gait normal. Deep Tendon Reflexes: Reflexes normal. Psychiatric: Mood and Affect: Mood normal. Behavior: Behavior normal. Thought Content: Thought content normal. Judgment: Judgment normal. Assessment/Plan Diagnoses and all orders for this visit: Wellness examination Wellness form reviewed in detail with the patient. Encouraged patient to stay up to date on immunizations and preventative testing. Encouraged healthy diet, stay active. Will continue with yearly wellness exams. Daytime somnolence This is a chronic medical condition that is stable since last assessment. No changes in treatment are suggested at this time. Other chronic pain Encouraged pt to reach out to Pain Management to set up appointment to discuss possibly getting another set of injections in her back which have been helpful for her in the past. Lesion of sciatic nerve, unspecified laterality See above. Tension headache This is a chronic medical condition that is stable since last assessment. No changes in treatment are suggested at this time. Severe persistent asthma with acute exacerbation (CMS/HCC) This is a chronic medical condition that is stable since last assessment. No changes in treatment are suggested at this time. COPD with chronic bronchitis (CMS/HCC) This is a chronic medical condition that is stable since last assessment. No changes in treatment are suggested at this time. Essential hypertension (CMS/HCC) Patient's blood pressure is currently well controlled. Continue with current medications and I will continue to monitor. Goal BP remains less than 130/80. ECG completed in the office today and showed incomplete RBBB per Dr. Bishop Fuller. No acute abnormalities. Irritable bowel syndrome with diarrhea This is a chronic medical condition that is stable since last assessment. No changes in treatment are suggested at this time. Lung field abnormal This is a chronic medical condition that is stable since last assessment. No changes in treatment are suggested at this time. Stage 3a chronic kidney disease (HCC) ([facility]) This is a chronic medical condition that is stable since last assessment. No changes in treatment are suggested at this time. Will continue to monitor with routine labs. Leg length discrepancy This is a chronic medical condition that is stable since last assessment. No changes in treatment are suggested at this time. Other osteoarthritis of spine, lumbar region See above. Diabetic nephropathy associated with type 2 diabetes mellitus (HCC) ([facility]) Will continue to monitor with routine HgbA1c. Morbid (severe) obesity due to excess calories ([facility]) Encouraged portion control, decrease simple sugars and carbohydrates, gradually increase activity level. Aim for continued gradual steady weight loss. Type 2 diabetes mellitus with other specified complication, without long-term current use of insulin ([facility]) Will continue to monitor with routine HgbA1c. Type 2 diabetes mellitus without complication, without long-term current use of insulin ([facility]) - semaglutide (Ozempic, 1 MG/DOSE,) 2 MG/1.5ML solution pen-injector; Inject 1 mg under the skin 1 (one) time per week Will continue to monitor with routine HgbA1c. Adjustment disorder with anxiety ([facility]) This is a chronic medical condition that is stable since last assessment. No changes in treatment are suggested at this time. Seasonal allergic rhinitis due to pollen This is a chronic medical condition that is stable since last assessment. No changes in treatment are suggested at this time. Depressive disorder ([facility]) This is a chronic medical condition that is stable since last assessment. No changes in treatment are suggested at this time. Dizziness This is a chronic medical condition that is stable since last assessment. No changes in treatment are suggested at this time. History of hysterectomy Pt is s/p hysterectomy. No concerns at this time. Hot flashes due to menopause This is a chronic medical condition that is stable since last assessment. No changes in treatment are suggested at this time. Hypertriglyceridemia ([facility]) This is a chronic medical condition that is stable since last assessment. No changes in treatment are suggested at this time. Will continue to monitor with routine labs. 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 No changes in treatment are suggested at this time. Migraine without aura and without status migrainosus, not intractable (CMS/HCC) This is a chronic medical condition that is stable since last assessment. No changes in treatment are suggested at this time. Piriformis syndrome of left side This is a chronic medical condition that is stable since last assessment. No changes in treatment are suggested at this time. Psoriasis (CMS/HCC) This is a chronic medical condition that is stable since last assessment. No changes in treatment are suggested at this time. Pure hypercholesterolemia (CMS/HCC) This is a chronic medical condition that is stable since last assessment. No changes in treatment are suggested at this time. Will continue to monitor with routine labs. Smoker Discussed smoking cessation with the patient. Encouraged patient to cut back and soon quit smoking. Health risks of smoking, and benefits of quitting reviewed with the patient. Surgical menopause This is a chronic medical condition that is stable since last assessment. No changes in treatment are suggested at this time. Need for vaccination - pneumococcal conjugate 20-valent (Prevnar 20) 0.5 ML vaccine; Inject 0.5 mL into the shoulder, thigh, or buttocks 1 (one) time for 1 dose Administer per protocol - zoster vaccine-recombinant adjuvanted (Shingrix) 50 MCG/0.5ML vaccine; Inject 0.5 mL (50 mcg) into the shoulder, thigh, or buttocks 1 (one) time for 1 dose Give two doses 2-6 months apart. Provided pt with prescriptions for the above immunizations. Reviewed dosing for both. Follow up for Appointment As Scheduled. documented in this encounter [facility] 04-14-2024 History of Present illness Narrative Associated Problem(s): Depressive disorder (CMS/HCC) This is a chronic medical condition that is stable since last assessment. No changes in treatment are suggested at this time. Continue Current meds. Associated Problem(s): Morbid (severe) obesity due to excess calories (CMS/HCC) Weight loss encouraged Associated Problem(s): Body mass index (BMI) 37.0-37.9, adult Diet and Exercise encouraged Associated Problem(s): Pure hypercholesterolemia (CMS/HCC) This is a chronic medical condition that is stable since last assessment. No changes in treatment are suggested at this time. Continue Current meds. Associated Problem(s): Diabetic nephropathy associated with type 2 diabetes mellitus (HCC) (CMS/HCC) No Tobacco use Follow ADA 1800 diet low carbohydrate Continue Med Compliance Goal LDL less than 100 Goal BP 130/80 Goal HgbA1c < 7.0% Monitor Feet, monitor for infection Needs Exercise Yearly eye exams Prior to your visit today we reviewed your chart and outlined testing and treatment needed for your care. Reviewed poissble complications of diabetes including, loss of vision, kidney failure and increased risk of heart attacks and stroke. We made recommendations on how to control your blood sugars, and minimize your risk of these complications. We discussed your current barriers to a healthy living and importance of healthy diet and exercise. Associated Problem(s): Essential hypertension (CMS/HCC) Our specific goals, for your hypertension, is to keep your blood pressure less than 140/90, and the importance of weight control. We made recommendations on how to control your blood pressure, and minimize your risk of these copmplications. We also discussed your current barriers to a healthy living and importance of healthy diet and exercise. Prior to your visit today we have reviewed your chart and formed a plan to assist with providing you the best possible care. We reviewed the possible complications of hypertension including, stroke, heart failure and kidney impairment. In addition, we discussed your medications, the importance of taking them as prescribed. DASH diet handouts Images from the original note were not included. HPI Diabetes Additional comments: Last A1c was 6.5 Last edited by Elysia Escobar MA on 04/14/2024 12:58 PM. Subjective Patient ID: Dhara Dallas is a 53 y.o. female who presents for Diabetes (Last A1c was 6.5). Pt sugars been running around 100 Pt is wanting to get a script for omeprazole 20mg poss 30mg Pt is still having anxiety she would like to know about getting back on xanax Diabetes She presents for her follow-up diabetic visit. She has type 2 diabetes mellitus. No MedicAlert identification noted. The initial diagnosis of diabetes was made 2 years ago. Her disease course has been stable. Hypoglycemia symptoms include headaches. Pertinent negatives for diabetes include no chest pain, no polydipsia, no polyphagia and no weakness. There are no hypoglycemic complications. Symptoms are stable. Pertinent negatives for diabetic complications include no CVA, heart disease, peripheral neuropathy or PVD. There are no known risk factors for coronary artery disease. Current diabetic treatment includes oral agent (dual therapy). She is compliant with treatment all of the time. She is following a diabetic diet. She has not had a previous visit with a dietitian. She rarely participates in exercise. There is no change in her home blood glucose trend. An JESÚS inhibitor/angiotensin II receptor reyes is not being taken. She does not see a toll mechanic. Current Outpatient Medications on File Prior to Visit Medication Sig Dispense Refill ipratropium-albuterol (Duo-Neb) 0.5-2.5 mg/3 mL nebulizer solution montelukast (Singulair) 10 MG tablet ofloxacin (Ocuflox) 0.3 % ophthalmic solution Four times daily ondansetron (Zofran) 4 MG tablet TAKE 1 TABLET BY MOUTH EVERY 6 HOURS NEEDED FOR NAUSEA AND VOMITING albuterol HFA 90 mcg/act inhaler amLODIPine (Norvasc) 10 MG tablet TAKE ONE TABLET BY MOUTH DAILY 100 tablet 3 aspirin 81 MG EC tablet 1 (one) time each day at the same time. atorvastatin (Lipitor) 40 MG tablet TAKE 1 TABLET BY MOUTH DAILY 100 tablet 1 cyclobenzaprine (Flexeril) 5 MG tablet TAKE ONE TABLET BY MOUTH THREE TIMES A DAY 90 tablet 1 diclofenac sodium (Voltaren XR) 100 mg 24 hr tablet TAKE 1 TABLET BY MOUTH DAILY 100 tablet 1 DULoxetine (Cymbalta) [address] capsule TAKE 1 CAPSULE BY MOUTH DAILY 30 capsule 2 DULoxetine (Cymbalta) [address] capsule TAKE 1 CAPSULE BY MOUTH DAILY 100 capsule 1 Bsoizswgwbh-Whuckguvf-Sgrmzc (Trelegy Ellipta) 100-62.5-25 MCG/ACT aerosol powder Inhale 1 puff in the morning. 1 each 11 gabapentin (Neurontin) 300 MG capsule loratadine (Claritin) 10 MG tablet 1 (one) time each day at the same time. metFORMIN (Glucophage) 500 MG tablet TAKE ONE TABLET BY MOUTH DAILY WITH A MEAL 100 tablet 1 nrvhjgewtrcy-upug-wosbebiv-folic acid (Centrum Silver, geriatric,) tablet as directed Orally nystatin (Mycostatin) 669734 UNIT/ML suspension OLANZapine (ZyPREXA) 10 MG tablet TAKE 1 TABLET BY MOUTH DAILY 100 tablet 1 omega-3 (fish oil) 1000 MG capsule 1 capsule 1 (one) time each day at the same time. potassium chloride CR (Klor-Con) 10 MEQ ER tablet every 12 (twelve) hours. Rimegepant Sulfate (Nurtec) 75 MG tablet dispersible Take 1 every other day for preventative 30 tablet 11 traMADol (Ultram) 50 MG tablet TAKE ONE TABLET BY MOUTH FOUR TIMES A DAY NEEDED 120 tablet 0 [DISCONTINUED] furosemide (Lasix) 20 MG tablet TAKE 1 TABLET BY MOUTH DAILY 100 tablet 1 [DISCONTINUED] semaglutide (Ozempic, 1 MG/DOSE,) 2 MG/1.5ML solution pen-injector Inject 1 mg under the skin 1 (one) time per week 2 each 12 No current facility-administered medications on file prior to visit. I have reviewed and reconciled the history and medication list with the patient today. Allergies Allergen Reactions Hydromorphone Itching Other Reaction(s): Unknown Social History Tobacco Use Smoking status: Every Day Current packs/day: 1.00 Types: Cigarettes Smokeless tobacco: Never Substance Use Topics Alcohol use: Yes Comment: 1-2 drinks monthly or less, caffeine yes coffee,soda Family History Problem Relation Name Age of Onset Other (Cancer, DM HTN) Mother Cervical cancer Mother Diabetes Mother Other (htn) Mother Diabetes Maternal Grandmother Colon cancer Maternal Grandfather Diabetes Paternal Grandmother Stroke Paternal Grandfather Heart disease Paternal Grandfather Psoriasis Other Family history Past Medical History: Diagnosis Date Allergies Anemia Anxiety Cancer (CMS/HCC) dysplasia cancer Depression (CMS/HCC) Gallbladder disease H/O hemorrhoids History of Doppler ultrasound 10/07/2020 U/S venous dopplers negative History of MRI 12/15/2022 MRI Moderate-marked foramen narrowing L3-L4 through L5-S1 predominantly due to degenerative facet arhropathy, but mild disc bulging contributes as well. Projecting from left kidney is a 1.6 cm complex cyst versus mass. IBD (inflammatory bowel disease) Irritable bowel disease Respiratory failure with hypoxia (CMS/HCC) 01/11/2023 Sepsis (CMS/HCC) 01/11/2023 Past Surgical History: Procedure Laterality Date APPENDECTOMY 1986 SECTION, LOW TRANSVERSE 1994 CHOLECYSTECTOMY [address] Fletcher HEMORRHOIDECTOMY HYSTERECTOMY 2004 Visit Vitals BP 132/76 Pulse 84 Ht 5' 5 Wt 211 lb SpO2 93% BMI 35.11 kg/m Smoking Status Every Day BSA 2.09 m Review of Systems Constitutional: Negative for unexpected weight change. Has Lost like 26lbs Cardiovascular: Negative for chest pain. Neurological: Positive for headaches. Negative for weakness. Endocrine: Negative for polydipsia and polyphagia. Objective Physical Exam Constitutional: General: She is not in acute distress. Appearance: Normal appearance. HENT: Head: Normocephalic. Cardiovascular: Rate and Rhythm: Normal rate and regular rhythm. Pulmonary: Effort: Pulmonary effort is normal. No respiratory distress. Breath sounds: Normal breath sounds. Neurological: General: No focal deficit present. Mental Status: She is alert and oriented to person, place, and time. Psychiatric: Mood and Affect: Mood normal. Office Visit on 04/14/2024 Component Date Value Ref Range Status Hemoglobin A1C 04/14/2024 5.7 Final Assessment/Plan Problem List Items Addressed This Visit Depressive disorder (CMS/HCC) This is a chronic medical condition that is stable since last assessment. No changes in treatment are suggested at this time. Continue Current meds. Essential hypertension (CMS/HCC) Our specific goals, for your hypertension, is to keep your blood pressure less than 140/90, and the importance of weight control. We made recommendations on how to control your blood pressure, and minimize your risk of these copmplications. We also discussed your current barriers to a healthy living and importance of healthy diet and exercise. Prior to your visit today we have reviewed your chart and formed a plan to assist with providing you the best possible care. We reviewed the possible complications of hypertension including, stroke, heart failure and kidney impairment. In addition, we discussed your medications, the importance of taking them as prescribed. DASH diet handouts Relevant Medications furosemide (Lasix) 20 MG tablet Other Relevant Orders CBC Lipid panel Comprehensive metabolic panel Migraine without aura and without status migrainosus, not intractable (CMS/HCC) Morbid (severe) obesity due to excess calories (CMS/HCC) Weight loss encouraged Pure hypercholesterolemia (CMS/HCC) This is a chronic medical condition that is stable since last assessment. No changes in treatment are suggested at this time. Continue Current meds. Relevant Orders CBC Lipid panel Comprehensive metabolic panel Type 2 diabetes mellitus (CMS/HCC) Relevant Medications semaglutide (Ozempic, 1 MG/DOSE,) 2 MG/1.5ML solution pen-injector Other Relevant Orders POCT Glycated hemoglobin, total (Completed) CBC Lipid panel Comprehensive metabolic panel Diabetic nephropathy associated with type 2 diabetes mellitus (HCC) (CMS/HCC) - Primary No Tobacco use Follow ADA 1800 diet low carbohydrate Continue Med Compliance Goal LDL less than 100 Goal BP 130/80 Goal HgbA1c < 7.0% Monitor Feet, monitor for infection Needs Exercise Yearly eye exams Prior to your visit today we reviewed your chart and outlined testing and treatment needed for your care. Reviewed poissble complications of diabetes including, loss of vision, kidney failure and increased risk of heart attacks and stroke. We made recommendations on how to control your blood sugars, and minimize your risk of these complications. We discussed your current barriers to a healthy living and importance of healthy diet and exercise. Relevant Orders CBC Lipid panel Comprehensive metabolic panel Body mass index (BMI) 37.0-37.9, adult Diet and Exercise encouraged Other Visit Diagnoses Encounter for screening mammogram for malignant neoplasm of breast Relevant Orders Bilateral screening mammogram Chronic obstructive pulmonary disease, unspecified (CMS/HCC) Atherosclerosis of aorta (CMS/HCC) Anxiety Relevant Medications ALPRAZolam (Xanax) 0.5 MG tablet Gastroesophageal reflux disease without esophagitis Relevant Medications omeprazole (PriLOSEC) [address] capsule Follow up in about 6 months (around 10/12/2024) for Diabetes. documented in this encounter [facility] 12-15-2022 Note PROCEDURE: XR SACRUM _COCCYX COMPARISON: [...] authenticated by: BRANDON CRUZ Date: 2022-12-15 08:23 [facility] 09-07-2022 Note CONSULTATION CONSULTATION DATE: 09/07/2022 HISTORY [...] indicated. Patient agrees with this plan. [facility] 09-07-2022 Note CONSULTATION PROCEDURE DATE: 09/07/2022 PREOPERATIVE [...] be followed up in the office. [facility] 06-01-2022 Note CONSULTATION CONSULTATION DATE: 06/01/2022 HISTORY [...] three months' time unless otherwise indicated. [facility] 06-01-2022 Note CONSULTATION PROCEDURE DATE: 06/01/2022 PREOPERATIVE [...] be followed up in the office. [facility] 04-06-2022 Note CONSULTATION PROCEDURE DATE: 04/06/2022 PRE [...] be followed up in the clinic. [facility] 04-06-2022 Note CONSULTATION CONSULTATION DATE: 04/06/2022 HISTORY [...] to continue with her multivitamin regimen. [facility] 01-26-2022 Note CONSULTATION CONSULTATION DATE: 01/26/2022 This [...] be followed up in the office post-procedure. [facility] Signed and Approved by: GRANT MCGILL . 02/02/2022 16:26:00 [facility] 12-22-2020 Note HNO ID: [id number] Author: Chris Oliva MD Service: ? Author Type: Physician Type: Progress Notes Filed: 12/22/2020 3:15 PM Note Text: Subjective: Dhara DALLAS is a 50 year old female. 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 SKIN:Negative for lesions, rash, and itching PSYCHIATRIC: Negative for sleep disturbance, mood disorder and recent psychosocial stressors. HEMATOLOGIC/LYMPHATIC/IMMUNOLOGIC: Negative for prolonged bleeding, bruising easily or swollen [...] is unl (more content not included)... [facility] Evaluation note No assessment inform ation available [facility] Work Phone: Evaluation note Diagnosis Morbid obesity (CMS/HCC)- Primary Morbid obesity Type 2 diabetes mellitus without complication, without long-term current use of insulin (CMS/HCC) Essential hypertension (CMS/HCC) Unspecified essential hypertension Smoker Tobacco use disorder Dizziness Dizziness and giddiness Migraine without aura and without status migrainosus, not intractable (CMS/HCC) Acute exacerbation of chronic obstructive pulmonary disease (CMS/HCC) Obstructive chronic bronchitis with exacerbation Nicotine dependence, cigarettes, with unspecified nicotine-induced disorders- Primary Type 2 diabetes mellitus without complication, without long-term current use of insulin (CMS/HCC) Adjustment disorder with anxiety (CMS/HCC) Adjustment disorder with anxiety Migraine without aura and without status migrainosus, not intractable (CMS/HCC) Type 2 diabetes mellitus with other specified complication, without long-term current use of insulin (CMS/HCC) Pure hyperglyceridemia (E78.1) Pure hyperglyceridemia Stage 3a chronic kidney disease (HCC) (CMS/HCC) Diabetic nephropathy associated with type 2 diabetes mellitus (HCC) (CMS/HCC)- Primary Essential hypertension (CMS/HCC) Unspecified essential hypertension Encounter for screening mammogram for malignant neoplasm of breast Type 2 diabetes mellitus with other specified complication, without long-term current use of insulin (CMS/HCC) Morbid (severe) obesity due to excess calories (CMS/HCC) Body mass index (BMI) 37.0-37.9, adult Chronic obstructive pulmonary disease, unspecified (CMS/HCC) Atherosclerosis of aorta (CMS/HCC) Atherosclerosis of aorta Pure hypercholesterolemia (CMS/HCC) Pure hypercholesterolemia Migraine without aura and without status migrainosus, not intractable (CMS/HCC) Depressive disorder (CMS/HCC) Depressive disorder, not elsewhere classified Type 2 diabetes mellitus without complication, without long-term current use of insulin (CMS/HCC) Anxiety Anxiety state, unspecified Gastroesophageal reflux disease without esophagitis Esophageal reflux Anxiety Anxiety state, unspecified [facility] Diagnosis Diabetic nephropathy associated with type 2 diabetes mellitus (HCC) (CMS/HCC)- Primary Essential hypertension (CMS/HCC) Unspecified essential hypertension Encounter for screening mammogram for malignant neoplasm of breast Type 2 diabetes mellitus with other specified complication, without long-term current use of insulin (CMS/HCC) Morbid (severe) obesity due to excess calories (CMS/HCC) Body mass index (BMI) 37.0-37.9, adult Chronic obstructive pulmonary disease, unspecified (CMS/HCC) Atherosclerosis of aorta (CMS/HCC) Atherosclerosis of aorta Pure hypercholesterolemia (CMS/HCC) Pure hypercholesterolemia Migraine without aura and without status migrainosus, not intractable (CMS/HCC) Depressive disorder (CMS/HCC) Depressive disorder, not elsewhere classified Type 2 diabetes mellitus without complication, without long-term current use of insulin (CMS/HCC) Anxiety Anxiety state, unspecified Gastroesophageal reflux disease without esophagitis Esophageal reflux documented in this encounter [facility]* Diagnosis Morbid obesity (CMS/HCC)- Primary Morbid obesity Type 2 diabetes mellitus without complication, without long-term current use of insulin (CMS/HCC) Essential hypertension (CMS/HCC) Unspecified essential hypertension Smoker Tobacco use disorder Dizziness Dizziness and giddiness Migraine without aura and without status migrainosus, not intractable (CMS/HCC) Acute exacerbation of chronic obstructive pulmonary disease (CMS/HCC) Obstructive chronic bronchitis with exacerbation Nicotine dependence, cigarettes, with unspecified nicotine-induced disorders- Primary Type 2 diabetes mellitus without complication, without long-term current use of insulin (CMS/HCC) Adjustment disorder with anxiety (CMS/HCC) Adjustment disorder with anxiety Migraine without aura and without status migrainosus, not intractable (CMS/HCC) Type 2 diabetes mellitus with other specified complication, without long-term current use of insulin (CMS/HCC) Pure hyperglyceridemia (E78.1) Pure hyperglyceridemia Stage 3a chronic kidney disease (HCC) (CMS/HCC) Diabetic nephropathy associated with type 2 diabetes mellitus (HCC) (CMS/HCC)- Primary Essential hypertension (CMS/HCC) Unspecified essential hypertension Encounter for screening mammogram for malignant neoplasm of breast Type 2 diabetes mellitus with other specified complication, without long-term current use of insulin (CMS/HCC) Morbid (severe) obesity due to excess calories (CMS/HCC) Body mass index (BMI) 37.0-37.9, adult Chronic obstructive pulmonary disease, unspecified (CMS/HCC) Atherosclerosis of aorta (CMS/HCC) Atherosclerosis of aorta Pure hypercholesterolemia (CMS/HCC) Pure hypercholesterolemia Migraine without aura and without status migrainosus, not intractable (CMS/HCC) Depressive disorder (CMS/HCC) Depressive disorder, not elsewhere classified Type 2 diabetes mellitus without complication, without long-term current use of insulin (CMS/HCC) Anxiety Anxiety state, unspecified Gastroesophageal reflux disease without esophagitis Esophageal reflux Anxiety Anxiety state, unspecified [facility] Diagnosis Wellness examination- Primary Daytime somnolence Other chronic pain Lesion of sciatic nerve, unspecified laterality Tension headache Severe persistent asthma with acute exacerbation (CMS/HCC) COPD with chronic bronchitis (CMS/HCC) Obstructive chronic bronchitis without exacerbation Essential hypertension (CMS/HCC) Unspecified essential hypertension Irritable bowel syndrome with diarrhea Irritable bowel syndrome Lung field abnormal Nonspecific (abnormal) findings on radiological and other examination of lung field Stage 3a chronic kidney disease (HCC) (CMS/HCC) Leg length discrepancy Unequal leg length (acquired) Other osteoarthritis of spine, lumbar region Diabetic nephropathy associated with type 2 diabetes mellitus (HCC) (CMS/[facility]) Morbid (severe) obesity due to excess calories ([facility]) Type 2 diabetes mellitus with other specified complication, without long-term current use of insulin (CMS/HCC) Type 2 diabetes mellitus without complication, without long-term current use of insulin ([facility]) Adjustment disorder with anxiety (CMS/[facility]) Adjustment disorder with anxiety Seasonal allergic rhinitis due to pollen Depressive disorder ([facility]/HCC) Depressive disorder, not elsewhere classified Dizziness Dizziness and giddiness History of hysterectomy Acquired absence of both cervix and uterus Hot flashes due to menopause Hypertriglyceridemia (CMS/HCC) Pure hyperglyceridemia correction (current) use of inhaled steroids Migraine without aura and without status migrainosus, not intractable (CMS/HCC) Piriformis syndrome of left side Psoriasis (CMS/HCC) Other psoriasis Pure hypercholesterolemia (CMS/HCC) Pure hypercholesterolemia Smoker Tobacco use disorder Surgical menopause Need for vaccination Need for prophylactic vaccination and inoculation against unspecified single disease [facility] Diagnosis Morbid obesity (CMS/HCC)- Primary Morbid obesity Type 2 diabetes mellitus without complication, without long-term current use of insulin (CMS/HCC) Essential hypertension (CMS/HCC) Unspecified essential hypertension Smoker Tobacco use disorder Dizziness Dizziness and giddiness Migraine without aura and without status migrainosus, not intractable (CMS/HCC) Acute exacerbation of chronic obstructive pulmonary disease (CMS/HCC) Obstructive chronic bronchitis with exacerbation Nicotine dependence, cigarettes, with unspecified nicotine-induced disorders- Primary Type 2 diabetes mellitus without complication, without long-term current use of insulin (CMS/HCC) Adjustment disorder with anxiety (CMS/HCC) Adjustment disorder with anxiety Migraine without aura and without status migrainosus, not intractable (CMS/HCC) Type 2 diabetes mellitus with other specified complication, without long-term current use of insulin (CMS/HCC) Pure hyperglyceridemia (E78.1) Pure hyperglyceridemia Stage 3a chronic kidney disease (HCC) (CMS/HCC) Diabetic nephropathy associated with type 2 diabetes mellitus (HCC) (CMS/HCC)- Primary Essential hypertension (CMS/HCC) Unspecified essential hypertension Encounter for screening mammogram for malignant neoplasm of breast Type 2 diabetes mellitus with other specified complication, without long-term current use of insulin (CMS/HCC) Morbid (severe) obesity due to excess calories (CMS/HCC) Body mass index (BMI) 37.0-37.9, adult Chronic obstructive pulmonary disease, unspecified (CMS/HCC) Atherosclerosis of aorta (CMS/HCC) Atherosclerosis of aorta Pure hypercholesterolemia (CMS/HCC) Pure hypercholesterolemia Migraine without aura and without status migrainosus, not intractable (CMS/HCC) Depressive disorder (CMS/HCC) Depressive disorder, not elsewhere classified Type 2 diabetes mellitus without complication, without long-term current use of insulin (CMS/HCC) Anxiety Anxiety state, unspecified Gastroesophageal reflux disease without esophagitis Esophageal reflux Pansinusitis, unspecified chronicity- Primary Type 2 diabetes mellitus with other specified complication (CMS/HCC) Type 2 diabetes mellitus without complications (CMS/HCC) 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) Morbid (severe) obesity due to excess calories (CMS/HCC) Chronic obstructive pulmonary disease, unspecified (CMS/HCC) Other specified chronic obstructive pulmonary disease (CMS/HCC) documented in this encounter [facility]* Diagnosis Morbid obesity (CMS/HCC)- Primary Morbid obesity Type 2 diabetes mellitus without complication, without long-term current use of insulin (CMS/HCC) Essential hypertension (CMS/HCC) Unspecified essential hypertension Smoker Tobacco use disorder Dizziness Dizziness and giddiness Migraine without aura and without status migrainosus, not intractable (CMS/HCC) Acute exacerbation of chronic obstructive pulmonary disease (CMS/HCC) Obstructive chronic bronchitis with exacerbation Nicotine dependence, cigarettes, with unspecified nicotine-induced disorders- Primary Type 2 diabetes mellitus without complication, without long-term current use of insulin (CMS/HCC) Adjustment disorder with anxiety (CMS/HCC) Adjustment disorder with anxiety Migraine without aura and without status migrainosus, not intractable (CMS/HCC) Type 2 diabetes mellitus with other specified complication, without long-term current use of insulin (CMS/HCC) Pure hyperglyceridemia (E78.1) Pure hyperglyceridemia Stage 3a chronic kidney disease (HCC) (CMS/HCC) Diabetic nephropathy associated with type 2 diabetes mellitus (HCC) (CMS/HCC)- Primary Essential hypertension (CMS/HCC) Unspecified essential hypertension Encounter for screening mammogram for malignant neoplasm of breast Type 2 diabetes mellitus with other specified complication, without long-term current use of insulin (CMS/HCC) Morbid (severe) obesity due to excess calories (CMS/HCC) Body mass index (BMI) 37.0-37.9, adult Chronic obstructive pulmonary disease, unspecified (CMS/HCC) Atherosclerosis of aorta (CMS/HCC) Atherosclerosis of aorta Pure hypercholesterolemia (CMS/HCC) Pure hypercholesterolemia Migraine without aura and without status migrainosus, not intractable (CMS/HCC) Depressive disorder (CMS/HCC) Depressive disorder, not elsewhere classified Type 2 diabetes mellitus without complication, without long-term current use of insulin ([facility]/HCC) Anxiety Anxiety state, unspecified Gastroesophageal reflux disease without esophagitis Esophageal reflux Herpes zoster without complication- Primary Former smoker Personal history of tobacco use, presenting hazards to health Diabetic nephropathy associated with type 2 diabetes mellitus (HCC) (CMS/HCC) documented [facility] encounter [facility]* Diagnosis Morbid obesity (CMS/HCC)- Primary Morbid obesity Type 2 diabetes mellitus without complication, without long-term current use of insulin Essential hypertension (CMS/HCC) Unspecified essential hypertension Smoker Tobacco use disorder Dizziness Dizziness and giddiness Migraine without aura and without status migrainosus, not intractable (CMS/HCC) Acute exacerbation of chronic obstructive pulmonary disease (CMS/HCC) Obstructive chronic bronchitis with exacerbation Nicotine dependence, cigarettes, with unspecified nicotine-induced disorders- Primary Type 2 diabetes mellitus with other specified complication, without long-term current use of insulin Adjustment disorder with anxiety (CMS/HCC) Adjustment disorder with anxiety Migraine without aura and without status migrainosus, not intractable (CMS/HCC) Pure hyperglyceridemia (E78.1) Pure hyperglyceridemia Stage 3a chronic kidney disease (HCC) (CMS/HCC) Diabetic nephropathy associated with type 2 diabetes mellitus (HCC) (CMS/HCC)- Primary Essential hypertension (CMS/HCC) Unspecified essential hypertension Encounter for screening mammogram for malignant neoplasm of breast Type 2 diabetes mellitus with other specified complication, without long-term current use of insulin Morbid (severe) obesity due to excess calories (CMS/HCC) Body mass index (BMI) 37.0-37.9, adult Chronic obstructive pulmonary disease, unspecified Atherosclerosis of aorta (CMS/HCC) Atherosclerosis of aorta Pure hypercholesterolemia (CMS/HCC) Pure hypercholesterolemia Migraine without aura and without status migrainosus, not intractable (CMS/HCC) Depressive disorder (CMS/HCC) Depressive disorder, not elsewhere classified Anxiety Anxiety state, unspecified Gastroesophageal reflux disease without esophagitis Esophageal reflux Essential hypertension (CMS/HCC)- Primary Unspecified essential hypertension Type 2 diabetes mellitus with diabetic nephropathy, without long-term current use of insulin (CMS/HCC) Diabetic nephropathy associated with type 2 diabetes mellitus (HCC) ([facility]/HCC) Tremors of nervous system Anxiety Anxiety state, unspecified documented in this encounter [facility] HealthcareEvaluation note* Diagnosis Morbid obesity (CMS-HCC)- Primary Morbid obesity Type 2 diabetes mellitus without complication, without long-term current use of insulin (HCC) Essential hypertension Unspecified essential hypertension Smoker Tobacco use disorder Dizziness Dizziness and giddiness Migraine without aura and without status migrainosus, not intractable Acute exacerbation of chronic obstructive pulmonary disease (HCC) Obstructive chronic bronchitis with exacerbation Nicotine dependence, cigarettes, with unspecified nicotine-induced disorders- Primary Type 2 diabetes mellitus with other specified complication, without long-term current use of insulin (HCC) Adjustment disorder with anxiety Adjustment disorder with anxiety Migraine without aura and without status migrainosus, not intractable Pure hyperglyceridemia (E78.1) Pure hyperglyceridemia Stage 3a chronic kidney disease (CMS-HCC) Diabetic nephropathy associated with type 2 diabetes mellitus (HCC)- Primary Essential hypertension Unspecified essential hypertension Encounter for screening mammogram for malignant neoplasm of breast Type 2 diabetes mellitus with other specified complication, without long-term current use of insulin (HCC) Morbid (severe) obesity due to excess calories (CMS-HCC) Body mass index (BMI) 37.0-37.9, adult Chronic obstructive pulmonary disease, unspecified (HCC) Atherosclerosis of aorta Pure hypercholesterolemia Pure hypercholesterolemia Migraine without aura and without status migrainosus, not intractable Depressive disorder Depressive disorder, not elsewhere classified Anxiety Anxiety state, unspecified Gastroesophageal reflux disease without esophagitis Esophageal reflux Essential hypertension- Primary Unspecified essential hypertension Type 2 diabetes mellitus with diabetic nephropathy, 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 associated with type 2 diabetes mellitus (HCC) Anxiety Anxiety state, unspecified documented in this encounter [facility] HealthcareEvaluation note* Diagnosis Morbid obesity ([facility])- Primary Morbid obesity Type 2 diabetes mellitus without complication, without long-term current use of insulin (HCC) Essential hypertension Unspecified essential hypertension Smoker Tobacco use disorder Dizziness Dizziness and giddiness Migraine without aura and without status migrainosus, not intractable Acute exacerbation of chronic obstructive pulmonary disease ([facility]) Obstructive chronic bronchitis with exacerbation Nicotine dependence, cigarettes, with unspecified nicotine-induced disorders- Primary Type 2 diabetes mellitus with other specified complication, without long-term current use of insulin ([facility]) Adjustment disorder with anxiety Adjustment disorder with anxiety Migraine without aura and without status migrainosus, not intractable Pure hyperglyceridemia (E78.1) Pure hyperglyceridemia Stage 3a chronic kidney disease ([facility]) Diabetic nephropathy associated with type 2 diabetes mellitus (HCC)- Primary Essential hypertension Unspecified essential hypertension Encounter for screening mammogram for malignant neoplasm of breast Type 2 diabetes mellitus with other specified complication, without long-term current use of insulin ([facility]) Morbid (severe) obesity due to excess calories ([facility]) Body mass index (BMI) 37.0-37.9, adult Chronic obstructive pulmonary disease, unspecified (HCC) Atherosclerosis of aorta Pure hypercholesterolemia Pure hypercholesterolemia Migraine without aura and without status migrainosus, not intractable Depressive disorder Depressive disorder, not elsewhere classified Anxiety Anxiety state, unspecified Gastroesophageal reflux disease without esophagitis Esophageal reflux Essential hypertension- Primary Unspecified essential hypertension Type 2 diabetes mellitus with diabetic nephropathy, 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 associated with type 2 diabetes mellitus (HCC) Spinal stenosis of lumbar region, unspecified whether neurogenic claudication present- Primary Type 2 diabetes mellitus with diabetic nephropathy, without long-term current use of insulin (HCC) Major depressive disorder, single episode, mild Major depressive disorder, single episode, mild Essential hypertension Unspecified essential hypertension documented in this encounter [facility] Healthcare Summary Purpose Family History No Family History [...] and content) DATE CREATED AUTHOR 08/30/2021 [facility] DATE CREATED AUTHOR AUTHOR'S ORGANIZ ATION 12/15/2021 [facility] dical Specialist DATE CREATED AUTHOR AUTHOR'S ORGANIZ ATION 01/05/2023 [facility] DATE CREATED AUTHOR AUTHOR'S ORGANIZ ATION 03/20/2023 [facility] DATE CREATED AUTHOR AUTHOR'S ORGANIZ ATION 09/14/2024 [facility] DATE CREATED AUTHOR AUTHOR'S ORGANIZ ATION 04/09/2025 [facility] dical Specialists EPIC Care Teams (unrecognized sec tion and content) Team Status: Active Member Role Status Dates Josey Youssef MD Primary Care Provider Active Team Status: Inactive Member Role Status Dates Josey Youssef MD Primary Care Provider Active S tart: March 22, 2024 End: March 22, 2024 Adeline Samposn APRN Attending Provider Active Start: March 22, 2024 End: March 22, 2024 Healthcare Consultant Relationship Specialty Start Date End Date Josey Youssef MD [address] [address] PCP - General Family Medicine 12/21/22 Healthcare Consultant Relationship Specialty Start Date End Date Josey Youssef MD [address] [address] PCP - General Family Medicine 12/21/22 Healthcare Consultant Relationship Specialty Start Date End Date Josey Youssef MD [address] [address] PCP - General Family Medicine 12/21/22 Healthcare Consultant Relationship Specialty Start Date End Date Josey Youssef MD [address] [place] [address] [place] [address] PCP - General Family Medicine 12/21/22 Healthcare Consultant Relationship Specialty Start Date End Date Josey Youssef MD [address] [place] [address] [place] [address] PCP - General Family Medicine 12/21/22 Healthcare Consultant Relationship Specialty Start Date End Date Josey Youssef MD [address] [place] [address] [place] [address] PCP - General Family Medicine 12/21/22 Healthcare Consultant Relationship Specialty Start Date End Date Josey Youssef MD [address] [place] [address] [place] [address] PCP - General Family Medicine 12/21/22 Healthcare Consultant Relationship Specialty Start Date End Date Josey Youssef MD [address] [place] [address] [place] [address] PCP - General Family Medicine 12/21/22 Healthcare Consultant Relationship Specialty Start Date End Date Josey Youssef MD [address] [place] [address] [place] [address] PCP - General Family Medicine 12/21/22 Healthcare Consultant Relationship Specialty Start Date End Date Josey Youssef MD [address] [place] [address] [place] [address] PCP - General Family Medicine 12/21/22 Healthcare Consultant Relationship Specialty Start Date End Date Josey Youssef MD [address] [place] [address] [place] [address] PCP - General Family Medicine 12/21/22 Healthcare Consultant Relationship Specialty Start Date End Date Josey Youssef MD [address] [facility] [address] [place] [address] PCP - General Family Medicine 12/21/22 Healthcare Consultant Relationship Specialty Start Date End Date Josey Youssef MD [address] [facility] [address] [place] [address] PCP - General Family Medicine 12/21/22 Healthcare Consultant Relationship Specialty Start Date End Date Josey Youssef MD [address] [facility] [address] [place] [address] PCP - General Family Medicine 12/21/22 Goals (unrecognized section and content) Goals may be documented in a n alternate section Reason for Visit (unrecogniz ed section and content) Reason Comments Med Refill Reason Comments Diabetes Last A1c was 6.5 Reason Onset Date Comments Med Refill 07/14/2024 Reason Comments Diabetes Last 5.7 FOR RECORDS PERTAINING TO PATIENTS WHO ARE [...] BE BASED ON THE PRIMARY CLINICAL RECORDS. [employer] provides no warranty or guarantee of the accuracy or completeness of information in this document.
--- OUTSIDE RECORDS SUMMARY | 2025-04-23 07:51 | XMS_ITS | Encounter Summary ---
Author Organization [facility] Address [address] [place] [address] Care Team Providers Care Floor And Wall Applier Liquid Name Role Phone Josey Gonsalez MD Primary Care Provider Encounter Details Date Type Department Care Team (Late st Contact Info) Description 03/28/2024 Abstract [facility] [place] [facility] [address] [facility] [address] [place] [phone] Josey Gonsalez MD [address] [facility] [address] [place] [address] Social History Tobacco Use Types Packs/Day Years Used Date Smoking Tobacco: Every Day Cigarettes Smokeless Tobacco: Never Alcohol Use Standard Drinks/Week Comments Yes 0 (1 standard drink = 0.6 oz pure alcohol) 1-2 drinks monthly or less, caffeine yes coffee,soda Social Connection and Isolation Panel [NHANES] A nswer Date Recorded In a typical week, how many times do you talk on the phone with family, friends, or neighbors? Patient declined 10/22/2023 How often do you get togethe r with friends or relatives? Patient declined 10/22/2023 How often do you attend orthodoxy or amish serv ices? Patient declined 10/22/2023 Do you belong to any clubs o r organizations such as orthodoxy groups, unions, fraternal or athletic groups, or school groups? Patient declined 10/22/2023 How often do you attend meet ings of the clubs or organizations you belong to? Patient declined 10/22/2023 Are you , , di vorced, , never , or living with a partner? 10/22/2023 AUDIT-C Answer Date Recorded Q1: How often do you have a drink containing alc ohol? Patient declined 10/22/2023 Q2: How many drinks containi ng alcohol do you have on a typical day when you are drinking? Patient declined 10/22/2023 Q3: How often do you have si x or more drinks on one occasion? Patient declined 10/22/2023 Overall Financial Resource Strain (CARDIA) Answe r Date Recorded How hard is it for you to pa y for the very basics like food, housing, medical care, and heating? Patient declined 10/22/2023 Hunger Vital Sign Answer Date Recorded Within the past 12 months, y ou worried that your food would run out before you got the money to buy more. Patient declined Within the past 12 months, t he food you bought just didn't last and you didn't have money to get more. Patient declined PRAPARE - Transportation Answer Date Re corded In the past 12 months, has l ack of transportation kept you from medical appointments or from getting medications? No 09/28 In the past 12 months, has l ack of transportation kept you from meetings, work, or from getting things needed for daily living? No 10/22/2023 Housing Stability Vital Sign Answer Atul e Recorded In the last 12 months, was t here a time when you were not able to pay the mortgage or rent on time? No 10/22/2023 In the last 12 months, how many places have you lived? 1 10/22/2023 In the last 12 months, was t here a time when you did not have a steady place to sleep or slept in a long-term (including now)? No 10/22/2023 Comments Unknown Sex and Gender Information Value Date Recorded Sex Assigned at Not on file Legal Sex Female 7:00 PM EDT Gender Identity Not on file Sexual Orientation Not on file documented as of this encounter Plan of Treatment Upcoming Encounters Date Type Department Care Team (Late st Contact Info) Description 07/13/2025 8:15 AM EST Office Visit [facility] [place] [facility] [address] [place] [address] [place] [phone] Josey Gonsalez MD 112 [facility] [address] [place] [address] documented as of this encounter Visit Diagnoses Not on filedocumented in this encounter Care Teams Floor And Wall Applier Liquid Relationship Specialty Start Date End Date Josey Gonsalez MD 112 [facility] [address] [place] [address] PCP - General Family Medicine 12/21/22 documented as of this encounter
--- OUTSIDE RECORDS SUMMARY | 2025-04-23 07:51 | XMS_ITS | Encounter Summary ---
Author Organization [facility] Address [address] [place] [address] Care Team Providers Care Hammer Shop Supervisor Name Role Phone Josey Gonsalez MD Primary Care Provider [phone] Encounter Details Date Type Department Care Team (Late st Contact Info) Description 04/28/2024 Abstract [facility] [place] [facility] [address] [facility] [address] [place] [phone] Josey Gonsalez MD [address] [place] [facility] 110 [place] [address] Social History Tobacco Use Types Packs/Day Years [...] declined 10/22/2023 How often do you attend temple or zoroastrian serv ices? Patient declined 10/22/2023 Do you belong to any clubs o r organizations such as temple groups, unions, fraternal or athletic groups, or [...] place to sleep or slept in a custodial (including now)? No 10/22/2023 Comments Unknown Sex and Gender Information Value Date Recorded Sex Assigned at Not on file Legal Sex Female 7:00 PM EDT Gender Identity Not on file Sexual Orientation Not on file documented as of this encounter Plan of Treatment Upcoming Encounters Date Type Department Care Team (Late st Contact Info) Description 07/13/2025 8:15 AM EST Office Visit [facility] [place] [facility] [address] [place] [address] [place] [phone] Josey Gonsalez MD 112 [facility] [address] [place] [address] documented as of this encounter Visit Diagnoses Not on filedocumented in this encounter Care Teams Hammer Shop Supervisor Relationship Specialty Start Date End Date Josey Gonsalez MD 112 [facility] [address] [place] [address] PCP - General Family Medicine 12/21/22 documented as of this encounter
--- OUTSIDE RECORDS SUMMARY | 2025-04-23 07:51 | XMS_ITS | Encounter Summary ---
Author Organization [facility] Address [address] [place] [address] Care Team Providers Care Director Of Sales Name Role Phone Josey Gonsalez MD Primary Care Provider [phone] Encounter Details Date Type Department Care Team (Late st Contact Info) Description 02/19/2023 Orders Only [facility] [place] [facility] [address] [facility] 110 [place] [address] A, Unknown Practice [address] [place] [phone] Social History Tobacco Use Types Packs/Day Years Used Date Smoking Tobacco: Every Day Cigarettes Smokeless Tobacco: Never Alcohol Use Standard Drinks/Week Comments Yes 0 (1 standard drink = 0.6 oz pur e alcohol) caffein yes coffee,soda Comments Unknown Sex and Gender Information Value Date Recorded Sex Assigned at Not on file Legal Sex Female 7:00 PM EDT Gender Identity Not on file Sexual Orientation Not on file documented as of this encounter Plan of Treatment Upcoming Encounters Date Type Department Care Team (Late st Contact Info) Description 07/13/2025 8:15 AM EST Office Visit [facility] [place] [facility] [address] [facility] [address] [place] [phone] Josey Gonsalez MD [address] [facility] [address] [place], [place] [phone] documented as of this encounter Procedures Procedure Name Priority Date/Time Associated Diagnosis Comments ELECTROCARDIOGRAM REPORT Routine 023 3:04 PM EDT XR CHEST 2 VIEWS Routine 02/15/2023 11:4 2 AM EDT documented in this encounter Results * Electrocardiogram Report (02/15/2023 3:04 PM EDT) us Unknown Practice A IN CLINIC/BEDSIDE ORDERABLES Final Result * XR chest 2 views (02/15/2023 11:42 AM EDT) Anatomical Region Laterality Modality Chest Radiographic Lynn ging us Unknown Practice A IMG XR PROCEDURES Final Resul t documented in this encounter Visit Diagnoses Not on filedocumented in this encounter Care Teams Director Of Sales Relationship Specialty Start Date End Date Josey Gonsalez MD [address] [place] [id number] PCP - General Family Medicine 12/21/22 documented as of this encounter
--- OUTSIDE RECORDS SUMMARY | 2025-04-23 07:51 | XMS_ITS | Encounter Summary ---
Author Organization [facility] Address [address] [place] [address] Care Team Providers Care Advertising Specialist Name Role Phone Josey Gonsalez MD Primary Care Provider [phone] Encounter Details Date Type Department Care Team (Late st Contact Info) Description 04/28/2024 Abstract [facility] [place] [facility] [address] [facility] [address] [place] [id number] Josey Gonsalez MD 112 [facility] 110 [place] [address] Social History Tobacco Use Types Packs/Day Years [...] declined 10/22/2023 How often do you attend taoist or mormonism serv ices? Patient declined 10/22/2023 Do you belong to any clubs o r organizations such as taoist groups, unions, fraternal or athletic groups, or [...] place to sleep or slept in a usp (including now)? No 10/22/2023 Comments Unknown Sex and Gender Information Value Date Recorded Sex Assigned at Not on file Legal Sex Female 7:00 PM EDT Gender Identity Not on file Sexual Orientation Not on file documented as of this encounter Plan of Treatment Upcoming Encounters Date Type Department Care Team (Late st Contact Info) Description 07/13/2025 8:15 AM EST Office Visit [facility] [place] [facility] [address] [place] [address] [place] [phone] Josey Gonsalez MD 112 [facility] 110 [place] [address] documented as of this encounter Visit Diagnoses Not on filedocumented in this encounter Care Teams Advertising Specialist Relationship Specialty Start Date End Date Josey Gonsalez MD 112 [facility] 110 [place] [address] PCP - General Family Medicine 12/21/22 documented as of this encounter
--- OUTSIDE RECORDS SUMMARY | 2025-04-23 07:51 | XMS_ITS | Encounter Summary ---
Author Organization [facility] Address [address] [place] [address] Care Team Providers Care Hr Analyst Name Role Phone Josey Gonsalez MD Primary Care Provider Encounter Details Date Type Department Care Team (Late st Contact Info) Description 10/20/2024 Abstract [facility] [place] [facility] [address] [facility] [address] [place] [phone] Josey Gonsalez MD 112 [facility] 110 [place] [address] Social History Tobacco Use Types Packs/Day Years Used Date Smoking Tobacco: Former Cigarettes 1 39 S tarted: 1984 Smokeless Tobacco: Never Alcohol Use Standard Drinks/Week [...] declined 10/22/2023 How often do you attend orthodox or baptist serv ices? Patient declined 10/22/2023 Do you belong to any clubs o r organizations such as orthodox groups, unions, fraternal or athletic groups, or [...] medical care, and heating? Patient declined 10/22/2023 PHQ-2 Answer Date Recorded Patient Health Questionnaire-2 Score 0 10/13/2024 Hunger Vital Sign Answer Date Recorded Within [...] place to sleep or slept in a fpc (including now)? No 10/22/2023 Comments Unknown Sex and Gender Information Value Date Recorded Sex Assigned at Not on file Legal Sex Female 7:00 PM EDT Gender Identity Not on file Sexual Orientation Not on file documented as of this encounter Plan of Treatment Upcoming Encounters Date Type Department Care Team (Late st Contact Info) Description 07/13/2025 8:15 AM EST Office Visit [facility] [place] [facility] [address] [facility] [address] [place] [address] Josey Gonsalez MD 112 [facility] [address] [place] [address] documented as of this encounter Visit Diagnoses Not on filedocumented in this encounter Care Teams Hr Analyst Relationship Specialty Start Date End Date Josey Gonsalez MD 112 [facility] 110 [place] [address] PCP - General Family Medicine 12/21/22 documented as of this encounter
--- OUTSIDE RECORDS SUMMARY | 2025-04-23 07:51 | XMS_ITS | Encounter Summary ---
Author Organization [facility] Address [address] [facility] [place] [address] Care Team Providers Care Surgical Services Assistant Name Role Phone Josey Gonsalez MD Primary Care Provider [phone] Encounter Details Date Type Department Care Team (Late st Contact Info) Description 02/05/2023 Abstract [facility] [place] [facility] 112 [facility] [address] [place] [address] Josey Gonsalez MD 112 [facility] 110 [place] [address] Social History Tobacco Use Types Packs/Day Years Used Date Smoking Tobacco: Every Day Cigarettes Smokeless Tobacco: Never Alcohol Use Standard Drinks/Week Comments Not Asked 0 (1 standard drink = 0.6 oz [...] 8:15 AM EST Office Visit [facility] [place] [facility] 112 [facility] [address] [place] [address] Josey Gonsalez MD 112 [facility] 110 [place] [address] documented as of this encounter Visit Diagnoses Not on filedocumented in this encounter Care Teams Surgical Services Assistant Relationship Specialty Start Date End Date Josey Gonsalez MD 112 [place] [address] PCP - General Family Medicine 12/21/22 documented as of this encounter
--- OUTSIDE RECORDS SUMMARY | 2025-04-23 07:51 | XMS_ITS | Encounter Summary ---
Author Organization [facility] Address [address] [facility] [place] [address] Care Team Providers Care Operations Supervisor 2Nd Shift Name Role Phone Josey Gonsalez MD Primary Care Provider [phone] Encounter Details Date Type Department Care Team (Late st Contact Info) Description 01/17/2023 Abstract [facility] [place] [facility] 112 [facility] [address] [place] [address] Josey Gonsalez MD 112 [facility] 110 [place] [address] Social History Tobacco Use Types Packs/Day Years [...] 07/13/2025 8:15 AM EST Office Visit [facility] [place] [facility] 112 [facility] [address] [place] [address] Josey Gonsalez MD 112 [facility] 110 [place] [address] documented as of this encounter Visit Diagnoses Not on filedocumented in this encounter Care Teams Operations Supervisor 2Nd Shift Relationship Specialty Start Date End Date oJsey Gonsalez MD 112 [place] [address] PCP - General Family Medicine 12/21/22 documented as of this encounter
--- OUTSIDE RECORDS SUMMARY | 2025-04-23 07:51 | XMS_ITS | Encounter Summary ---
Author Organization [facility] Address [address] [facility] [place] [address] Care Team Providers Care Resource Recovery Specialist Name Role Phone Josey Gonsalez MD Primary Care Provider [phone] Encounter Details Date Type Department Care Team (Late st Contact Info) Description 04/11/2023 Abstract [facility] [place] [facility] 112 [facility] [address] [place] [address] Josey Gonsalez MD 112 [facility] 110 [place] [address] Social History Tobacco Use Types Packs/Day Years [...] EST Office Visit [facility] [place] [facility] 112 [facility] [address] [place] [address] Josey Gonsalez MD 112 [facility] [address] [place] [address] documented as of this encounter Visit Diagnoses Not on filedocumented in this encounter Care Teams Resource Recovery Specialist Relationship Specialty Start Date End Date Josey Gonsalez MD 112 [place] [address] PCP - General Family Medicine 12/21/22 documented as of this encounter
--- OUTSIDE RECORDS SUMMARY | 2025-04-23 07:51 | XMS_ITS | Encounter Summary ---
Author Organization [facility] Address [address] [facility] [place] [address] Care Team Providers Care Nurse Clinician Name Role Phone Josey Gonsalez MD Primary Care Provider [phone] Encounter Details Date Type Department Care Team (Late st Contact Info) Description 12/27/2022 Clinisync Result Encounter [facility] External Department Unsolicited Madison Oconnell NP 112 [facility] 110 [place] [address] Social History Tobacco Use Types Packs/Day Years Used Date Smoking Tobacco: Never Assessed Comments Unknown Sex and Gender Information Value Date Recorded Sex Assigned at Not on file Legal Sex Female 7:00 PM EDT Gender Identity Not on file Sexual Orientation Not on file documented as of this encounter Plan of Treatment Upcoming Encounters Date Type Department Care Team (Late st Contact Info) Description 07/13/2025 8:15 AM EST [facility] [address] [facility] 110 [place] [phone] Josey Gonsalez MD 112 [facility] 110 [place], [place] [phone] documented as of this encounter Procedures Procedure Name Priority Date/Time Associated Diagnosis Comments [facility] CREATININE Routine 12/27/2022 11:26 AM EDT XR CHEST 2 V 12/27/2022 10:57 AM EDT documented in this encounter Results * (ABNORMAL) [facility] CREATININE (12/27/2022 11:26 AM EDT) [facility] CREA 1.03(HH) 0.55 - 1.02 mg/dL [facility] TB EGFR-NON AF TOGOLESE 56(LL) >=60 mL/min/1.7 3m2 [facility] TB EGFR-AF TOGOLESE >60 >=60 mL/min/1.7 3m2 [facility] 12/27/2022 11:2 6 AM EDT 12/27/2022 11:26 AM EDT Narrative [facility] - 12/27/2022 11:39 AM EDT Madison Oconnell NP [facility] Final Result Performing Organization Address City/State/[facility] Co de Phone Number [facility] [address] [place] [address] * XR CHEST 2 V (12/27/2022 10:57 AM EDT) Anatomical Region Laterality Modality Other 12/27/2022 10:5 7 AM EDT Narrative 12/27/2022 11:35 AM EDT EXAM: XR CHEST 2 V HISTORY: Pneumonia COMPARISON: None. TECHNIQUE: PA and lateral views of the chest. FINDINGS: The cardiomediastinal silhouette is normal. Airspace disease of the lingula. There is no pneumothorax. No pleural effusion is noted. The osseous structures are intact. IMPRESSION: Airspace disease of the lingula. Electronically authenticated by: AURORA HERNANDEZ Date: 2022-12-27 11:35 Procedure Note Radiology, Radiologist, MD - 12/27/2022 EXAM: XR CHEST 2 V HISTORY: Pneumonia COMPARISON: None. TECHNIQUE: PA and lateral views of the chest. FINDINGS: The cardiomediastinal silhouette is normal. Airspace disease of the lingula. There is no pneumothorax. No pleural effusion is noted. The osseous structures are intact. IMPRESSION: Airspace disease of the lingula. Electronically authenticated by: AURORA HERNANDEZ Date: 2022-12-27 11:35 us Madison Oconnell NP [facility] Final Resu lt documented in this encounter Visit Diagnoses Not on filedocumented in this encounter Care Teams Nurse Clinician Relationship Specialty Start Date End Date Josey Gonsalez MD [address] [address] PCP - General Family Medicine 12/21/22 documented as of this encounter
--- OUTSIDE RECORDS SUMMARY | 2025-04-23 07:51 | XMS_ITS | Encounter Summary ---
Author Organization [facility] Address [address] [place] [address] Care Team Providers Care Special Effects Designer Name Role Phone Josey Gonsalez MD Primary Care Provider [phone] Encounter Details Date Type Department Care Team (Late st Contact Info) Description 04/28/2024 Abstract [facility] [place] [facility] [address] [facility] 110 [place] [phone] Josey Gonsalez MD 112 [facility] 110 [place] [address] Social History Tobacco Use Types Packs/Day Years [...] declined 10/22/2023 How often do you attend alevism or druze serv ices? Patient declined 10/22/2023 Do you belong to any clubs o r organizations such as alevism groups, unions, fraternal or athletic groups, or [...] 8:15 AM EST Office Visit [facility] [place] [facility] [address] [address] [place] [phone] Josey Gonsalez MD 112 [facility] 110 [place] [address] documented as of this encounter Visit Diagnoses Not on filedocumented in this encounter Care Teams Special Effects Designer Relationship Specialty Start Date End Date Josey Gonsalez MD 112 [facility] 110 [place] [address] PCP - General Family Medicine 12/21/22 documented as of this encounter
--- OUTSIDE RECORDS SUMMARY | 2025-04-23 07:51 | XMS_ITS | Clinical Summary ---
Author Organization [facility] Address [address] [place] [address] Care Team Providers Care Automatic Spinning Lathe Setter Name Role Phone Josey Youssef MD Primary Care Provider [phone] Allergies Active Allergy Reactions Criticality Noted Date Comments Hydromorphone Itching 03/04/2013 Other Reaction(s): Unknown Medications albuterol HFA 90 mcg/act inhaler 023 Active nystatin (Mycostatin) 900780 UNIT/ML suspension 023 Active traMADol (Ultram) 50 MG tabletIndicatio ns:Other chronic pain TAKE ONE TABLET BY MOUTH FOUR TIMES A DAY NEEDED 120 tablet 023 Active aspirin 81 MG EC tablet 1 (one) time each day at the same time. Active loratadine (Claritin) 10 MG tablet 1 (one) time each day at the same time. Active multivitamin-ir gr-fbgmdkho-zup ic acid (Centrum Silver, geriatric,) tablet as directed Orally Active omega-3 (fish oil) 1000 MG capsule 1 capsule 1 (one) time each day at the same time. Active potassium chloride CR (Klor-Con) 10 MEQ ER tablet every 12 (twelve) hours. Active ipratropium-alb uterol (Duo-Neb) 0.5-2.5 mg/3 mL nebulizer solution 024 Active montelukast (Singulair) 10 MG tablet 024 Active omeprazole (PriLOSEC) [address] capsuleIndicati ons:Gastroesoph ageal reflux disease without esophagitis TAKE 1 CAPSULE BY MOUTH EVERY MORNING BEFORE MEALS, DO NOT CRUSH OR CHEW 100 capsule 3 024 Active atorvastatin (Lipitor) 40 MG tabletIndicatio ns:Hypertriglyc eridemia TAKE 1 TABLET BY MOUTH DAILY 100 tablet 3 025 Active metFORMIN (Glucophage) 500 MG tabletIndicatio ns:Hypertriglyc eridemia TAKE 1 TABLET BY MOUTH DAILY WITH A MEAL 100 tablet 3 025 Active OLANZapine (ZyPREXA) 10 MG tabletIndicatio ns:Adjustment disorder with anxiety TAKE 1 TABLET BY MOUTH DAILY 100 tablet 3 025 Active DULoxetine (Cymbalta) [address] capsuleIndicati ons:Depressive disorder TAKE 1 CAPSULE BY MOUTH DAILY 100 capsule 3 025 Active zinc gluconate 50 MG tablet Take 50 mg by mouth Daily Active Calcium Carbonate-Vit D-Min (CALCIUM 1200 PO) Take 2 tablets by mouth Daily Active gabapentin (Neurontin) 300 MG capsuleIndicati ons:Herpes zoster without complication Take 1 capsule (300 mg) by mouth in the morning and 1 capsule (300 mg) in the evening and 1 capsule (300 mg) before bedtime. Do all this for 10 days. 30 capsule 025 Active furosemide (Lasix) 20 MG tabletIndicatio ns:Essential hypertension TAKE 1 TABLET(20 MG) BY MOUTH DAILY 100 tablet 1 025 Active Rimegepant Sulfate (Nurtec) 75 MG tablet dispersibleIndi cations:Migrain e without aura and without status migrainosus, not intractable DISSOLVE 1 TABLET BY MOUTH EVERY OTHER DAY FOR PREVENTATIVE 15 tablet 2 025 Active cyclobenzaprine (Flexeril) 5 MG tabletIndicatio ns:Tremors of nervous system TAKE 1 TABLET BY MOUTH 3 TIMES A DAY 90 tablet 1 025 Active DULoxetine (Cymbalta) [address] capsuleIndicati ons:Depressive disorder Take 1 capsule (30 mg) by mouth Daily 100 capsule 3 025 Active ALPRAZolam (Xanax) 0.5 MG tabletIndicatio ns:Anxiety TAKE 1 TABLET BY MOUTH EVERY MORNING AND TAKE 1 TABLET BY MOUTH EVERY NIGHT AT BEDTIME 60 tablet 025 Active amLODIPine (Norvasc) 5 MG tabletIndicatio ns:Essential hypertension Take 1 tablet (5 mg) by mouth Daily 025 2024 Active Semaglutide, 2 MG/DOSE, 8 MG/3ML solution pen-injectorInd ications:Type 2 diabetes mellitus with diabetic nephropathy, without long-term current use of insulin (HCC) Inject 2 mg under the skin 1 (one) time per week 9 mL 025 2024 Active Dextromethorpha n-buPROPion ER (Auvelity) 45-105 MG tablet controlled-rele aseIndications: Major depressive disorder, single episode, mild Take 1 tablet by mouth Daily 30 tablet 025 2024 Active diclofenac sodium (Voltaren XR) 100 mg 24 hr tabletIndicatio ns:Dizziness TAKE 1 TABLET BY MOUTH DAILY 30 tablet 2 Active amLODIPine (Norvasc) 10 MG tabletIndicatio ns:Essential hypertension TAKE 1 TABLET BY MOUTH DAILY 100 tablet 3 025 2024 Discontinued(R eorder) Ozempic, 1 MG/DOSE, 4 MG/3ML solution pen-injector 025 2024 Discontinued(T herapy completed) semaglutide (Ozempic, 1 MG/DOSE,) 2 MG/1.5ML solution pen-injectorInd ications:Type 2 diabetes mellitus without complication, without long-term current use of insulin (HCC) Inject 1 mg under the skin 1 (one) time per week 3 mL 5 025 2024 Discontinued(T herapy completed) diclofenac sodium (Voltaren XR) 100 mg 24 hr tabletIndicatio ns:Dizziness TAKE 1 TABLET BY MOUTH DAILY 30 tablet 2 025 2024 Discontinued Active Problems Problem Noted Date Diagnosed Date Major depressive disorder, single episode, mild 04/07/2025 Assessment & Plan (04/07/2025 9:49 AM EDT): This is a chronic medical condition that is stable since last assessment. No changes in treatment are suggested at this time. Continue Current meds. Spinal stenosis of lumbar region 04/07/2025 Abnormal laboratory test result 10/13/2024 Chronic kidney disease 10/13/2024 Moderate persistent asthma without complication 10/13/2024 Renal cyst 09/11/2024 COPD with chronic bronchitis 04/28/2024 Diabetic nephropathy associa kun with type 2 diabetes mellitus 04/14/2024 Assessment & Plan (10/13/2024 9:08 AM EDT): No Tobacco use Follow ADA 1800 diet [...] and importance of healthy diet and exercise. Assessment & Plan (04/14/2024 1:14 PM EDT): No Tobacco use Follow ADA 1800 diet [...] and importance of healthy diet and exercise. Dizziness 04/09/2023 Assessment & Plan (04/09/2023 8:43 AM EDT): Increase fluids, drinking electrolyte group home (current) use of inhaled steroids 01/2023 Lung field abnormal 04/05/2023 Adjustment disorder with anxiety 12/26/2022 Allergic rhinitis 12/26/2022 Asthma 12/26/2022 Daytime somnolence 12/26/2022 Depressive disorder 12/26/2022 Assessment & Plan (04/14/2024 1:17 PM EDT): This is a chronic medical condition that is stable since last assessment. No changes in treatment are suggested at this time. Continue Current meds. Essential hypertension 12/26/2022 Assessment & Plan (04/07/2025 9:48 AM EDT): Our specific goals, for your hypertension, is [...] taking them as prescribed. DASH diet handouts Assessment & Plan (10/13/2024 9:08 AM EDT): Our specific goals, for your hypertension, is [...] taking them as prescribed. DASH diet handouts Assessment & Plan (04/14/2024 1:13 PM EDT): Our specific goals, for your hypertension, is [...] taking them as prescribed. DASH diet handouts Assessment & Plan (04/09/2023 8:31 AM EDT): Our specific goals, for your hypertension, is [...] taking them as prescribed. DASH diet handouts Hot flashes due to menopause 12/26/2022 Hypertriglyceridemia 12/26/2022 Irritable bowel syndrome with diarrhea 3 Leg length discrepancy 12/26/2022 Migraine without aura and wi thout status migrainosus, not intractable 12/26/2022 Assessment & Plan (10/23/2023 9:00 AM EDT): Recommend continuing the FMLA Patient had good results with Nurtec. She takes every other day for prevention and she has tried other agents like Ubrelvy with some relief. Had been Imitrex, but has had high BP. Has had propranolol for migraines BP and was ineffective. Assessment & Plan (04/09/2023 8:44 AM EDT): Nurtec effective minimal migraine, less intense and less frequent Morbid (severe) obesity due to excess calories 0 12/26/2022 Assessment & Plan (04/14/2024 1:17 PM EDT): Weight loss encouraged Assessment & Plan (04/09/2023 8:30 AM EDT): Weight loss and exercise encouraged Osteoarthritis of lumbar spine 12/26/2022 Other chronic pain 12/26/2022 Piriformis syndrome of left side 12/26/2022 Psoriasis 12/26/2022 Pure hypercholesterolemia 12/26/2022 Assessment & Plan (04/14/2024 1:14 PM EDT): This is a chronic medical condition that is stable since last assessment. No changes in treatment are suggested at this time. Continue Current meds. Stage 3a chronic kidney disease 12/26/2022 Assessment & Plan (10/23/2023 8:56 AM EDT): Saw Nephrology 6-8 months ago Surgical menopause 12/26/2022 Tension headache 12/26/2022 Type 2 diabetes mellitus 12/26/2022 Assessment & Plan (04/07/2025 9:48 AM EDT): No Tobacco use Follow ADA 1800 diet [...] and importance of healthy diet and exercise. Assessment & Plan (04/09/2023 8:30 AM EDT): No Tobacco use Follow ADA 1800 diet [...] and importance of healthy diet and exercise. Sciatic nerve lesion 04/06/2017 History of hysterectomy 11/11/2015 Resolved Problems Problem Noted Date Diagnosed Date Resolved Date Pre-diabetes 04/14/2024 04/28/2024 Body mass index (BMI) 37.0-37.9, adult 04/14/2024 04/28/2024 Assessment & Plan (04/14/2024 1:17 PM EDT): Diet and Exercise encouraged Nicotine dependence, cigaret ines, with unspecified nicotine-induced disorders 04/05/2023 0 04/28/2024 Assessment & Plan (10/23/2023 8:55 AM EDT): Resumed smoking after mom's Discussed smoking cessation with the patient. Encouraged patient to cut back and soon quit smoking. Health risks of smoking, and benefits of quitting reviewed with the patient. Acute exacerbation of chroni c obstructive pulmonary disease 12/26/2022 04/28/2024 Assessment & Plan (04/09/2023 9:18 AM EDT): Trelegy samples given Elevated BP without diagnosis of hypertension 12/27/1904/14/2024 Finding of above normal blood pressure 12/26/2022 04/28/2024 H/O total hysterectomy 12/26/202204/28 Hot flashes 12/26/2022 04/28/2024 Impaired fasting glucose 12/26/2022 Migraine headache 12/26/2022 04/28/2024 Obesity (BMI 30.0-34.9) 12/26/202204/01 Smoker 12/26/2022 09/11/2024 Assessment & Plan (04/09/2023 8:39 AM EDT): Discussed smoking cessation with the patient. Encouraged patient to cut back and soon quit smoking. Health risks of smoking, and benefits of quitting reviewed with the patient. Encounters Date Type Department Care Team Description 04/21/2025 Refill [facility] [address] [facility] [address] [place] [address] Josey Youssef MD [facility] 04/15/2025 Abstract [facility] [address] [facility] [address] [place] [address] Josey Youssef MD 04/07/2025 9:30 AM EDT Office Visit [facility] [address] [facility] [address] [place] [phone] Josey Youssef MD Spinal stenosis of lumbar region, unspecified whether neurogenic claudication present (Primary Dx); Type 2 diabetes mellitus with diabetic nephropathy, without long-term current use of insulin (HCC); Major depressive disorder, single episode, mild ; Essential hypertension 04/07/2025 Travel 03/15/2025 [facility] [address] [place] [phone] Josey Youssef MD Anxiety 02/16/2025 Refill [facility] [address] [place] [phone] Elysia Escobar MA Depressive disorder 02/01/2025 [facility] [address] [place] [phone] Josey Youssef MD Tremors of nervous system from Last 3 Months Immunizations Immunization Administration Dates Next Due Influenza, injectable, MDCK, preservative free, quadrivalent 07/11/2021 Influenza, injectable, quadrivalent, preservativ e free 06/15/2022 Moderna Bivalent Booster Vaccination 06/15/2022 SARS-COV-2 (COVID-19) vaccin e, mRNA, spike protein, LNP, bivalent, preservative free, 30 mcg/0.3 mL dose, maria esther-sucrose formulation 06/15/2022 Family History Medical History Relation Name Comments Colon cancer Maternal Grandfather Diabetes Maternal Grandmother Cancer, DM HTN Mother 08/2022 Cervical cancer Mother Diabetes Mother htn Mother Psoriasis Other Family history Heart disease Paternal Grandfather Stroke Paternal Grandfather Diabetes Paternal Grandmother Relation Name Status Comments Father Alive Maternal Grandfather Maternal Grandmother Mother Other Family history Paternal Grandfather Paternal Grandmother Social History Tobacco Use Types Packs/Day Years Used Date Smoking Tobacco: Former Cigarettes 1 39 S tarted: 1984 Smokeless Tobacco: Never Tobacco Cessation:Counseling Given: Not Answered Alcohol Use Standard Drinks/Week Comments Yes 0 [...] declined 10/22/2023 How often do you attend congregation or restoration serv ices? Patient declined 10/22/2023 Do you belong to any clubs o r organizations such as congregation groups, unions, fraternal or athletic groups, or [...] Date Recorded Patient Health Questionnaire-2 Score 0 04/07/2025 Hunger Vital Sign Answer Date Recorded Within [...] place to sleep or slept in a senior care (including now)? No 10/22/2023 Comments Unknown Sex and Gender Information Value Date Recorded Sex Assigned at Not on file Legal Sex Female 7:00 PM EDT Gender Identity Not on file Sexual Orientation Not on file Last Filed Vital Signs Vital Sign Reading Time Taken Comments Blood Pressure 138/88 04/07/2025 9:27 AM EDT Pulse 90 04/07/2025 9:27 AM EDT Temperature 37.3 C (99.2 F) 01/10/2023 9:23 AM EDT Respiratory Rate 16 09/11/2024 9:28 AM EST Oxygen Saturation 96% 04/07/2025 9:27 AM EDT Inhaled Oxygen Concentration - - Weight 98.4 kg (217 lb) 04/07/2025 9:27 AM EDT Height 165.1 cm (5' 5 ) 04/07/2025 9:27 AM EDT Body Mass Index 36.11 04/07/2025 9:27 AM EDT Plan of Treatment Upcoming Encounters Date Type Department Care Team (Late st Contact Info) Description 07/13/2025 8:15 AM EST Office Visit [facility] [address] [facility] [address] [place] [address] Josey Youssef MD 112 [facility] [address] [place] [address] Health Maintenance Due Date Last Done Comments CT Colonography 1969 FIT-DNA 1969 FIT 1969 FOBT 1969 Sigmoidoscopy 1969 Diabetes: Retinopathy Screening 1979 Influenza Vaccine (#1) 2025 06/15/2022, 2020 Mammogram 04/18/2025 04/18/2024, 12/09/2021 Diabetes: Hemoglobin A1C 07/07/2025 025, 10/13/2024, 04/14/2024, Additional history exists Diabetes: Urine Protein Screening 09/11/2025 09/11/2024, 04/09/2023, 12/12/2021 Colonoscopy 12/03/2030 12/03/2020 Colorectal Cancer Screening 12/03/2030 Goals Goal Patient Goal Type Associated Problems Recent Progress Patient-Stated? Author Help patient manage antidepressant medication Care Plan Patient on antidepressant monitoring plan Josey Bronson MD Baseline PHQ-9 Care Plan Baseline PHQ-9 Josey Bronson MD Procedures Procedure Name Priority Date/Time Associated Diagnosis Comments POCT GLYCATED HEMOGLOBIN, TOTAL Routine 04/07/2025 9:37 AM EDT Type 2 diabetes mellitus with diabetic nephropathy, without long-term current use of insulin (HCC) MICROALBUMIN / CREATININE URINE RATIO Routine 09/11/2024 2:17 PM EST MM TOMOSYNTHESIS SCREENING BI 04/18/2024 12:10 PM EDT COLONOSCOPY Routine 12/03/2020 12:00 PM EDT from Last 3 Months or Most Recently Relevant to Health Maintenance Results * POCT Glycated hemoglobin, total (04/07/2025 9:37 AM EDT) Hemoglobin A1C 5.5 Blood 04/07/2025 9:37 AM EDT Josey Youssef MD POINT OF CARE TEST ENTER/EDIT OR DERABLES Final Result * Microalbumin / creatinine urine ratio (09/11/2024 2:17 PM EST) CREATININE, RANDOM URINE 47 20 - 275 mg/dL [facility] ALBUMIN, URINE 0.4 See Note: mg/dL [facility] Comment: Reference Range: Reference Range Not established ALBUMIN/CREATININE RATIO, RANDOM URINE 9 <30 mg/g creat [facility] Comment: The ADA defines abnormalities in albumin excretion as follows: Albuminuria Category Result (mg/g creatinine) Normal to Mildly increased <30 Moderately increased 30-299 Severely increased > OR = 300 The ADA recommends that at least two of three specimens collected within a 3-6 month period be abnormal before considering a patient to be within a diagnostic category. 09/11/2024 2:17 PM EST 09/11/2024 2:18 PM EST Narrative Resulting Agency Comment Performing Organization Information Site ID: [id number] Name: [facility] Address: [address] [place] [address], [address] [place] [phone] Director: Christiano Escobar MD Janel [facility]DM[facility] URINE ORDERABLES Final Res ult [facility] * MM TOMOSYNTHESIS SCREENING BI (04/18/2024 12:10 PM EDT) Anatomical Region Laterality Modality Other 04/18/2024 12:1 0 PM EDT Narrative 04/18/2024 12:11 [place] [address] Mammography Report Signed Patient: DHARA DALLAS MR#: [id number] : 1970 Acct:[id number] Age/Sex: 53 / F ADM Date: 04/18/24 Loc: MAMMO Attending Dr: JOSEY YOUSSEF Ordering Physician: JOSEY YOUSSEF Results: Date of Service: 04/18/24 Follow Up: Procedure(s): MM tomosynthesis screening BI Accession Number(s): [id number] cc: JOSEY YOUSSEF Patient Name: DHARA DALLAS MR#: [id number] : 1970 Exam Date: 04/18/2024 Ordering Doctor: DR JOSEY YOUSSEF M.D. RADIOLOGY REPORT PROCEDURE: MM TOMOSYNTHESIS SCREENING BI COMPARISON: MG MAMM SCREEN 3D ELIANE CAD, 12/09/2021. MG MAMM SCREEN ELIANE W CAD, 10/31/2016. INDICATIONS: Screening mammogram Calculator Name NCI Breast Cancer Risk Assessment Tool 5 Year Breast Cancer Risk 0.80% Lifetime Breast Cancer Risk 6.10% Personal Breast Cancer No Personal Ovarian Cancer No Treatments None Family Cancers Mother with ovarian cancer at age 27; Grandmother-maternal with colon cancer at age 66; Grandmother-maternal with lung cancer at age 79. LOCATION: [facility] BREAST COMPOSITION: There are scattered areas of fibroglandular density. FINDINGS: DIAGNOSTIC CATEGORY 1--NEGATIVE. NO CHANGE FROM COMPARISON ASSESSMENT. Scattered benign-appearing calcifications are present. Scattered benign-appearing lymph nodes are present. RIGHT BREAST: No significant suspicious finding. LEFT BREAST: No significant suspicious finding. RECOMMENDATIONS: ROUTINE MAMMOGRAM AND CLINICAL EVALUATION IN 12 MONTHS. PLEASE NOTE: A NORMAL MAMMOGRAM DOES NOT EXCLUDE THE POSSIBILITY OF BREAST CANCER. A CLINICALLY SUSPICIOUS PALPABLE LUMP SHOULD BE BIOPSIED. Dictated by: Silver Sterling MD on 04/18/2024 at 12:09 Approved by: Silver Sterling MD on 04/18/2024 at 12:10 Dictated By: Silver Sterling M.D. Signed By: 04/18/24 1211 DD/ 1210 TD/TT: Baseball Sewer Hand: Procedure Note Radiology, Radiologist, MD - 04/18/2024 [place] [address] Mammography Report Signed Patient: DHARA DALLAS AMR#: [id number] : 1970Acct:[id number] Age/Sex: 53 / FADM Date: 04/18/24 Loc: MAMMO Attending Dr: JOSEY YOUSSEF Ordering Physician: Taylor YOUSSEFults: Date of Service: 04/18/24Follow Up: Procedure(s): MM tomosynthesis screening BI Accession Number(s): [id number] cc: JOSEY YOUSSEF Patient Name: DHARA DALLAS MR#: [id number] : 1970 Exam Date: 04/18/2024 Ordering Doctor: DR JOSEY YOUSSEF M.D. RADIOLOGY REPORT PROCEDURE: MM TOMOSYNTHESIS SCREENING BI COMPARISON: MG MAMM SCREEN 3D ELIANE CAD, 12/09/2021. MG MAMM SCREEN BILW CAD, 10/31/2016. INDICATIONS: Screening mammogram Calculator Name NCI Breast Cancer Risk Assessment Tool 5 Year Breast Cancer Risk 0.80% Lifetime Breast Cancer Risk 6.10% Personal Breast Cancer No Personal Ovarian Cancer No Treatments None Family Cancers Mother with ovarian cancer at age 27;Grandmother-maternal with colon cancer at age 66; Grandmother-maternal with lung cancer at age79. LOCATION: [facility] BREAST COMPOSITION: There are scattered areas of fibroglandulardensity. FINDINGS: DIAGNOSTIC CATEGORY 1--NEGATIVE. NO CHANGE FROM COMPARISON ASSESSMENT. Scattered benign-appearing calcifications are present. Scattered benign-appearing lymph nodes are present. RIGHT BREAST: No significant suspicious finding. LEFT BREAST: No significant suspicious finding. RECOMMENDATIONS: ROUTINE MAMMOGRAM AND CLINICAL EVALUATION IN 12 MONTHS. PLEASE NOTE: A NORMAL MAMMOGRAM DOES NOT EXCLUDE THE POSSIBILITY OFBREAST CANCER. A CLINICALLY SUSPICIOUS PALPABLE LUMP SHOULD BE BIOPSIED. Dictated by: Silver Sterling MD on 04/18/2024 at 12:09 Approved by: Silver Sterling MD on 04/18/2024 at 12:10 Dictated By: Silver Sterling M.D. Signed By:04/18/24 1211 DD/ 1210 TD/TT: Baseball Sewer Hand: Josey Youssef MD [facility] Final Result * Colonoscopy (12/03/2020 12:00 PM EDT) Anatomical Region Laterality Modality Endoscopy 12/03/2020 12:0 0 PM EDT Narrative 12/03/2020 12:00 PM EDT PERFORMED AT [facility] LOCATION:[id number] colonic polyp Procedure Note CONVERSION, GENERIC - 12/13/[address] [facility] LOCATION:[id number] colonic polyp Josey Youssef MD ENDOSCOPY PROCEDURE ORDERABLES F inal Result from Last 3 Months or Most Recently Relevant to Health Maintenance Additional Health Concerns Active Problems Noted Date Diagnosed Date Patient on antidepressant monitoring plan 2024 Baseline PHQ-9 04/07/2025 Insurance [employer] Care Teams Automatic Spinning Lathe Setter Relationship Specialty Start Date End Date Josey Youssef MD [address] [place] [id number] PCP - General Family Medicine 12/21/22
--- OUTSIDE RECORDS SUMMARY | 2025-04-23 07:51 | XMS_ITS | Encounter Summary ---
Author Organization [facility] Address [address] [place] [address] Care Team Providers Care Software Quality Analyst Name Role Phone Josey Gonsalez MD Primary Care Provider [phone] Encounter Details Date Type Department Care Team (Late st Contact Info) Description 04/28/2024 Abstract [facility] [address] [facility] [address] [place] [phone] Josey Gonsalez MD [address] [facility] [address] [place] [address] Social History Tobacco Use Types Packs/Day Years [...] declined 10/22/2023 How often do you attend yazdanism or spiritism serv ices? Patient declined 10/22/2023 Do you belong to any clubs o r organizations such as yazdanism groups, unions, fraternal or athletic groups, or [...] place to sleep or slept in a nursing home (including now)? No 10/22/2023 Comments Unknown Sex and Gender Information Value Date Recorded Sex Assigned at Not on file Legal Sex Female 7:00 PM EDT Gender Identity Not on file Sexual Orientation Not on file documented as of this encounter Plan of Treatment Upcoming Encounters Date Type Department Care Team (Late st Contact Info) Description 07/13/2025 8:15 AM EST Office Visit [facility] [address] [place] [phone] Josey Gonsalez MD 112 [facility] [address] [place] [address] documented as of this encounter Visit Diagnoses Not on filedocumented in this encounter Care Teams Software Quality Analyst Relationship Specialty Start Date End Date Josey Gonsalez MD 112 [facility] [address] [place] [address] PCP - General Family Medicine 12/21/22 documented as of this encounter
--- OUTSIDE RECORDS SUMMARY | 2025-04-23 07:51 | XMS_ITS | Encounter Summary ---
Author Organization [facility] Address [address] [facility] [place] [address] Care Team Providers Care Fire Supervisor Name Role Phone Josey Gonsalez MD Primary Care Provider [phone] Encounter Details Date Type Department Care Team (Late st Contact Info) Description 01/25/2023 Abstract [facility] [address] [facility] [address] [place] [address] Josey Gonsalez MD [address] [facility] [address] [place] [address] Social History Tobacco Use Types Packs/Day Years [...] EST Office Visit [facility] [address] [facility] [address] [place] [address] Josey Gonsalez MD 112 [facility] 110 [place] [address] documented as of this encounter Visit Diagnoses Not on filedocumented in this encounter Care Teams Fire Supervisor Relationship Specialty Start Date End Date Josey Gonsalez MD [address] [place] [address] PCP - General Family Medicine 12/21/22 documented as of this encounter
--- OUTSIDE RECORDS SUMMARY | 2025-04-23 07:51 | XMS_ITS | Encounter Summary ---
Author Organization [facility] Address [address] [place] [address] Care Team Providers Care Toll Line Inspector Name Role Phone Josey Gonsalez MD Primary Care Provider [phone] Reason for Visit * Reason Comments Med Refill Encounter Details Date Type Department Care Team (Late st Contact Info) Description 04/21/2025 Refill [facility] [place] [facility] [address] [place] [address] [place] [address] Josey Gonsalez MD [address] [place] 110 [place] [address] Dizziness Social History Tobacco Use Types Packs/Day Years [...] declined 10/22/2023 How often do you attend yarsanism or hinduism serv ices? Patient declined 10/22/2023 Do you belong to any clubs o r organizations such as yarsanism groups, unions, fraternal or athletic groups, or [...] Description 07/13/2025 8:15 AM EST Office Visit SAMREEN Contreras 112 [facility] 110 [place] [address] Josey Gonsalez MD 112 [facility] 110 [place] [address] documented as of this encounter Goals Goal Patient Goal Type Associated Problems Recent Progress Patient-Stated? Author Help patient manage antidepressant medication Care Plan Patient on antidepressant monitoring plan No Josey Gonsalez MD Baseline PHQ-9 Care Plan Baseline PHQ-9 No Josey Gonsalez MD documented as of this encounter Visit Diagnoses Diagnosis Dizziness Dizziness and giddiness documented in this encounter Additional Health Concerns Active Problems Noted Date Diagnosed Date Patient on antidepressant monitoring plan 2024 Baseline PHQ-9 04/07/2025 documented as of this encounter Care Teams Toll Line Inspector Relationship Specialty Start Date End Date Josey Gonsalez MD 112 [facility] 110 [place] [address] PCP - General Family Medicine 12/21/22 documented as of this encounter
--- OUTSIDE RECORDS SUMMARY | 2025-04-23 07:51 | XMS_ITS | Encounter Summary ---
Author Organization [facility] Address [address] [facility] [place] [address] Care Team Providers Care Oyster Tonger Name Role Phone Josey Gonsalez MD Primary Care Provider [phone] Encounter Details Date Type Department Care Team (Late st Contact Info) Description 01/02/2023 Orders Only [facility] [place] Castillosawyer [address] [facility] 110 [place] [phone] Madison Oconnell NP [address] [place] [address] [place] [address] Social History Tobacco Use Types Packs/Day Years Used Date Smoking Tobacco: Every Day Cigarettes Smokeless Tobacco: Never Comments Unknown Sex and Gender Information Value Date Recorded Sex Assigned at Not on file Legal Sex Female 7:00 PM EDT Gender Identity Not on file Sexual Orientation Not on file documented as of this encounter Plan of Treatment Upcoming Encounters Date Type Department Care Team (Late st Contact Info) Description 07/13/2025 8:15 AM EST Office Visit [facility] [place] [facility] [address] [place] [address] [place] [phone] Josey Gonsalez MD [address] [place] [address] [place] [address] documented as of this encounter Procedures Procedure Name Priority Date/Time Associated Diagnosis Comments SCANNED LABS Routine 12/27/2022 11:10 AM EDT XR CHEST 2 VIEWS Routine 12/27/2022 10:46 AM EDT documented in this encounter Results * SCANNED LABS (12/27/2022 11:10 AM EDT) us Madison Oconnell DIRECTOR OF FIELD SERVICE LAB CHG PERFORMABLES Final R esult * XR chest 2 views (12/27/2022 10:46 AM EDT) Anatomical Region Laterality Modality Chest Radiographic Lynn ging Madison Oconnell DIRECTOR OF FIELD SERVICE IMG XR PROCEDURES Final Resu lt documented in this encounter Visit Diagnoses Not on filedocumented in this encounter Care Teams Oyster Tonger Relationship Specialty Start Date End Date Josey Gonsalez MD 112 [place] [address] PCP - General Family Medicine 12/21/22 documented as of this encounter
--- OUTSIDE RECORDS SUMMARY | 2025-04-23 07:51 | XMS_ITS | Encounter Summary ---
Author Organization [facility] Address [address] [place] [address] Care Team Providers Care Human Resources Compensation Analyst Name Role Phone Josey Gonsalez MD Primary Care Provider [phone] Encounter Details Date Type Department Care Team (Late st Contact Info) Description 05/12/2024 Abstract [facility] [place] [facility] [address] [facility] 110 [place] [phone] Josey Gonsalez MD 112 [facility] 110 [place] [address] Social History Tobacco Use Types Packs/Day Years [...] declined 10/22/2023 How often do you attend synagogue or mandaen serv ices? Patient declined 10/22/2023 Do you belong to any clubs o r organizations such as synagogue groups, unions, fraternal or athletic groups, or [...] place to sleep or slept in a half-way (including now)? No 10/22/2023 Comments Unknown Sex and Gender Information Value Date Recorded Sex Assigned at Not on file Legal Sex Female 7:00 PM EDT Gender Identity Not on file Sexual Orientation Not on file documented as of this encounter Plan of Treatment Upcoming Encounters Date Type Department Care Team (Late st Contact Info) Description 07/13/2025 8:15 AM EST Office Visit [facility] [place] [facility] [address] [place] [address] [place] [phone] Josey Gonsalez MD 112 [facility] 110 [place] [address] documented as of this encounter Visit Diagnoses Not on filedocumented in this encounter Care Teams Human Resources Compensation Analyst Relationship Specialty Start Date End Date Josey Gonsalez MD 112 [facility] 110 [place] [address] PCP - General Family Medicine 12/21/22 documented as of this encounter
--- OUTSIDE RECORDS SUMMARY | 2025-04-23 07:51 | XMS_ITS | Encounter Summary ---
Author Organization [facility] Address [address] [place] [address] Care Team Providers Care Instrument Repair Specialist Name Role Phone Josey Gonsalez MD Primary Care Provider [phone] Encounter Details Date Type Department Care Team (Late st Contact Info) Description 01/22/2024 Orders Only [facility] [place] [facility] [address] [place] [address] [place] [address] Unallocated, Noms Provider, [address] [place] [address] Social History Tobacco Use Types Packs/Day Years [...] declined 10/22/2023 How often do you attend restorationism or mormon serv ices? Patient declined 10/22/2023 Do you belong to any clubs o r organizations such as restorationism groups, unions, fraternal or athletic groups, or [...] AM EST [facility] [place] [facility] [address] [place] [address] [place] [phone] Josey Gonsalez MD [address] [facility] 110 [place] [address] documented as of this encounter Procedures Procedure Name Priority Date/Time Associated Diagnosis Comments SCANNED LABS Routine 01/17/2024 11:40 AM EDT documented in this encounter Results * SCANNED LABS (01/17/2024 11:40 AM EDT) us Noms Provider Unallocated LAB CHG PERFORMABLE S Final Result documented in this encounter Visit Diagnoses Not on filedocumented in this encounter Care Teams Instrument Repair Specialist Relationship Specialty Start Date End Date Josey Gonsalez MD [address] [facility] 110 [place] [address] PCP - General Family Medicine 12/21/22 documented as of this encounter
--- OUTSIDE RECORDS SUMMARY | 2025-04-23 07:51 | XMS_ITS | Encounter Summary ---
Author Organization [facility] Address [address] [place] [address] Care Team Providers Care Production Designer Name Role Phone Josey Gonsalez MD Primary Care Provider [phone] Encounter Details Date Type Department Care Team (Late st Contact Info) Description 01/17/2023 Orders Only [facility] [place] [facility] Alan [address] [facility] 110 [place] [phone] Jessy Butt, DO [address] [address] Social History Tobacco Use Types Packs/Day Years [...] 8:15 AM EST Office Visit [facility] [place] Phillipse [address] [place] [address] [place] [address] Josey Gonsalez MD [address] [place] [address] [place], [place] [phone] documented as of this encounter Procedures Procedure Name Priority Date/Time Associated Diagnosis Comments ELECTROCARDIOGRAM REPORT Routine 023 1:16 PM EDT documented in this encounter Results * Electrocardiogram Report (01/11/2023 1:16 PM EDT) us Jessy Butt DO IN CLINIC/BEDSIDE ORDERABLES Edited Result - Final documented in this encounter Visit Diagnoses Not on filedocumented in this encounter Care Teams Production Designer Relationship Specialty Start Date End Date Josey Gonsalez MD 112 [facility] 110 [place] [address] PCP - General Family Medicine 12/21/22 documented as of this encounter
--- OUTSIDE RECORDS SUMMARY | 2025-04-23 07:51 | XMS_ITS | Encounter Summary ---
Author Organization [facility] Address [address] [facility] [place] [address] Care Team Providers Care Lot Boss Name Role Phone Josey Gonsalez MD Primary Care Provider [phone] Encounter Details Date Type Department Care Team (Late st Contact Info) Description 01/11/2023 Abstract [facility] [place] [facility] Alan 112 [facility] 110 [place] [address] Josey Gonsalez MD 112 [facility] [facility] 110 [place] [address] Social History Tobacco Use Types Packs/Day Years [...] EST Office Visit [facility] [place] Alan 112 [facility] [address] [place] [address] Josey Gonsalez MD 112 [facility] 110 [place] [address] documented as of this encounter Visit Diagnoses Not on filedocumented in this encounter Care Teams Lot Boss Relationship Specialty Start Date End Date Josey Gonsalez MD 112 [place] [address] PCP - General Family Medicine 12/21/22 documented as of this encounter
--- OUTSIDE RECORDS SUMMARY | 2025-04-23 07:51 | XMS_ITS | Encounter Summary ---
Author Organization [facility] Address [address] [facility] [place] [address] Care Team Providers Care Straightedge Worker Name Role Phone Josey Gonsalez MD Primary Care Provider [phone] Encounter Details Date Type Department Care Team (Late st Contact Info) Description 02/01/2023 Abstract [facility] [place] [facility] Alan [address] [facility] 110 [place] [phone] Madison Oconnell, BRITTANY 112 [facility] 110 [place] [address] Social History Tobacco Use Types Packs/Day Years [...] EST Office Visit [facility] [place] Alan [address] [facility] 110 [place] [phone] Josey Gonsalez MD 112 [facility] 110 [place] [address] documented as of this encounter Visit Diagnoses Not on filedocumented in this encounter Care Teams Straightedge Worker Relationship Specialty Start Date End Date Josey Gonsalez MD 112 [place] [address] PCP - General Family Medicine 12/21/22 documented as of this encounter
--- OUTSIDE RECORDS SUMMARY | 2025-04-23 07:51 | XMS_ITS | Encounter Summary ---
Author Organization [facility] Address [address] [facility] [place] [address] Care Team Providers Care Area Intelligence Technician Name Role Phone Josey Gonsalez MD Primary Care Provider [phone] Encounter Details Date Type Department Care Team (Late st Contact Info) Description 01/15/2023 Orders Only [facility] [place] Phillips [address] [facility] [address] [place] [phone] Josey Gonsalez MD 112 [facility] 110 [place] [address] Social History Tobacco Use Types Packs/Day Years [...] EST Office Visit [facility] [place] Contreras 112 [facility] 110 [place] [address] Josey oGnsalez MD 112 [facility] 110 [place] [address] documented as of this encounter Procedures Procedure Name Priority Date/Time Associated Diagnosis Comments US RENAL KIDNEY AND BLADDER Routine 01/12/2023 8:51 AM EDT XR CHEST 2 VIEWS Routine 01/11/2023 9:23 AM EDT documented in this encounter Results * US RENAL KIDNEY AND BLADDER (01/12/2023 8:51 AM EDT) Anatomical Region Laterality Modality Radiographic Lynn ging Josey Gonsalez MD IMG XR PROCEDURES Final Result * XR chest 2 views (01/11/2023 9:23 AM EDT) Anatomical Region Laterality Modality Chest Radiographic Lynn ging Josey Gonsalez MD IMG XR PROCEDURES Final Result documented in this encounter Visit Diagnoses Not on filedocumented in this encounter Care Teams Area Intelligence Technician Relationship Specialty Start Date End Date Josey Gonsalez MD 112 [place] [address] PCP - General Family Medicine 12/21/22 documented as of this encounter
--- OUTSIDE RECORDS SUMMARY | 2025-04-23 07:51 | XMS_ITS | Encounter Summary ---
Author Organization [facility] Address [address] [place] [address] Care Team Providers Care Long Wall Mining Machine Helper Name Role Phone Josey Gonsalez MD Primary Care Provider [phone] Encounter Details Date Type Department Care Team (Late st Contact Info) Description 04/22/2024 Abstract [facility] [place] [facility] [address] [facility] 110 [place] [phone] Josey Gonsalez MD 112 [facility] 110 [place] [address] Social History Tobacco Use Types Packs/Day Years [...] declined 10/22/2023 How often do you attend scientology or hinduism serv ices? Patient declined 10/22/2023 Do you belong to any clubs o r organizations such as scientology groups, unions, fraternal or athletic groups, or [...] place to sleep or slept in a fci (including now)? No 10/22/2023 Comments Unknown Sex [...] AM EST Office Visit [facility] [place] [facility] [address] [place] [address] [place] [phone] Josey Gonsalez MD 112 [facility] 110 [place] [address] documented as of this encounter Visit Diagnoses Not on filedocumented in this encounter Care Teams Long Wall Mining Machine Helper Relationship Specialty Start Date End Date Josey Gonsalez MD 112 [facility] 110 [place] [address] PCP - General Family Medicine 12/21/22 documented as of this encounter
--- OUTSIDE RECORDS SUMMARY | 2025-04-23 07:51 | XMS_ITS | Encounter Summary ---
Author Organization [facility] Address [address] [place] [address] Care Team Providers Care Usability Engineer Name Role Phone Josey Gonsalez MD Primary Care Provider [phone] Encounter Details Date Type Department Care Team (Late st Contact Info) Description 04/16/2024 Abstract [facility] [place] [facility] [address] [facility] 110 [place] [phone] Josey Gonsalez MD 112 [place] [facility] 110 [place] [address] Social History Tobacco Use Types Packs/Day Years [...] declined 10/22/2023 How often do you attend episcopal or episcopalian serv ices? Patient declined 10/22/2023 Do you belong to any clubs o r organizations such as episcopal groups, unions, fraternal or athletic groups, or [...] place to sleep or slept in a long term (including now)? No 10/22/2023 Comments Unknown Sex and Gender Information Value Date Recorded Sex Assigned at Not on file Legal Sex Female 7:00 PM EDT Gender Identity Not on file Sexual Orientation Not on file documented as of this encounter Plan of Treatment Upcoming Encounters Date Type Department Care Team (Late st Contact Info) Description 07/13/2025 8:15 AM EST Office Visit [facility] [place] [facility] [address] [place] [address] [place] [phone] Josey Gonsalez MD 112 [facility] 110 [place] [address] documented as of this encounter Visit Diagnoses Not on filedocumented in this encounter Care Teams Usability Engineer Relationship Specialty Start Date End Date Josey Gonsalez MD 112 [facility] 110 [place] [address] PCP - General Family Medicine 12/21/22 documented as of this encounter
--- OUTSIDE RECORDS SUMMARY | 2025-04-23 07:51 | XMS_ITS | Encounter Summary ---
Author Organization [facility] Address [address] [facility] [place] [address] Care Team Providers Care Local Driver Name Role Phone Josey Gonsalez MD Primary Care Provider [phone] Encounter Details Date Type Department Care Team (Late st Contact Info) Description 01/05/2023 Abstract [facility] [place] Castillonce [address] [facility] 110 [place] [phone] Josey Gonsalez MD [address] [facility] 110 [place] [address] Social History Tobacco Use Types Packs/Day Years [...] [facility] [place] [facility] [address] [facility] [address] [place] [address] Josey Gonsalez MD [address] [facility] 110 [place] [address] documented as of this encounter Visit Diagnoses Not on filedocumented in this encounter Care Teams Local Driver Relationship Specialty Start Date End Date Josey Gonsalez MD [address] [facility] 110 [place] [address] PCP - General Family Medicine 12/21/22 documented as of this encounter
--- OUTSIDE RECORDS SUMMARY | 2025-04-23 07:51 | XMS_ITS | Encounter Summary ---
Author Organization [facility] Address [address] [place] [address] Care Team Providers Care Reading Interventionist Name Role Phone Josey Youssef MD Primary Care Provider [phone] Encounter Details Date Type Department Care Team (Late st Contact Info) Description 04/21/2024 Clinisync Result Encounter [facility] External Department Unsolicited Provider, Generic External Data Social History Tobacco Use Types Packs/Day Years [...] declined 10/22/2023 How often do you attend shinto or roman catholic serv ices? Patient declined 10/22/2023 Do you belong to any clubs o r organizations such as shinto groups, unions, fraternal or athletic groups, or [...] place to sleep or slept in a snf (including now)? No 10/22/2023 Comments Unknown Sex and Gender Information Value Date Recorded Sex Assigned at Not on file Legal Sex Female 7:00 PM EDT Gender Identity Not on file Sexual Orientation Not on file documented as of this encounter Plan of Treatment Upcoming Encounters Date Type Department Care Team (Late st Contact Info) Description 07/13/2025 8:15 AM EST Office Visit [facility] [address] [facility] [address] [place] [address] Josey Youssef MD [address] [facility] [address] [place] [address] documented as of this encounter Procedures Procedure Name Priority Date/Time Associated Diagnosis Comments CT CHEST WO CON 04/21/2024 1:25 PM EDT documented in this encounter Results * CT CHEST WO CON (04/21/2024 1:25 PM EDT) Anatomical Region Laterality Modality Other 04/21/2024 1:25 PM EDT Narrative 04/21/2024 1:28 [place] [address] CT Scan Report Signed Patient: DHARA DALLAS MR#: [id number] : 1970 Acct:[id number] Age/Sex: 53 / F ADM Date: 04/18/24 Loc: CT Attending Dr: Melisa Blanc D.O. Ordering Physician: Melisa Blanc D.O. Date of Service: 04/18/24 Procedure(s): CT chest wo con Accession Number(s): [id number] cc: JOSEY YOUSSEF [place] [address] Patient Name: DHARA DALLAS MRN: [id number] date: 1970 Sex: F Assigned Patient Location: CT Current Patient Location: CT Accession/Order Number: [id number] Exam Date: 04/18/2024 07:40 Report Date: 04/21/2024 13:25 At the request of: MELISA BLANC Procedure: CT chest wo con EXAMINATION: CT chest wo con HISTORY: Ground glass opacity present on imaging of lung R91.8 COMPARISON: 04/13/2023 TECHNIQUE: Multi-planar CT images were created with IV contrast. Axial, Coronal, and Sagittal images. Dose reduction techniques were achieved by using automated exposure control and/or adjustment of mA and/or kV according to patient size and/or use of iterative reconstruction technique. FINDINGS: LUNGS: Scattered groundglass and linear opacities are noted most significant in the right upper lobe, lingula and left lower lobes. Atelectasis and/or scar is favored. A few scattered punctate pulmonary nodules stable both in number and size from the prior exam. PLEURA: No mass, effusion, or pneumothorax. VASCULATURE: No abnormality. FUNIM: No mass or adenopathy. MEDIASTINUM: No mass or adenopathy. CARDIAC: No enlargement. Small amount of pericardial fluid felt to be within normal limits Coronary arteries: Absent AORTA: No aortic aneurysm. Minimal calcific atherosclerosis CHEST WALL: No mass or axillary adenopathy. BONES: No bone lesion or fracture. LIMITED ABDOMEN: 2 focal areas of hypodensity one in the right hepatic lobe measuring 2.46 m axial image 105 partially visualized in the second in the caudate measuring 1.8 cm axial image 102. Partially visualized 5.3 cm hyperdense lesion posterior left kidney possibly a hyperdense cyst OTHER: Negative. CT/CT chest wo con IMPRESSION: Stable scattered patchy parenchymal infiltrates and punctate nodules Partially visualized 5.3 cm hypodense lesion of the left kidney possibly a hyperdense cyst 2 focal hypodensities in the liver, nonspecific but stable Electronically authenticated by: MELYSSA PITTS Date: 04/21/2024 13:25 Dictated By: Melyssa Pitts M.D. Signed By: 04/21/24 1328 DD/ 1325 TD/TT: Plaster Helper: Procedure Note Radiology, Radiologist, MD - 04/21/2024 [place] [address] CT Scan Report Signed Patient: DHARA DALLAS AMR#: [id number] : 1970Acct:[id number] Age/Sex: 53 / FADM Date: 04/18/24 Loc: CT Attending Dr: Melisa Blanc D.O. Ordering Physician: Melisa Blanc D.O. Date of Service: 04/18/24 Procedure(s): CT chest wo con Accession Number(s): [id number] cc: JOSEY YOUSSEF [address] [address] Patient Name: DHARA DALLAS MRN: [id number] date: 1970 Sex: F Assigned Patient Location: CT Current Patient Location: CT Accession/Order Number: [id number] Exam Date: 04/18/2024 07:40 Report Date: 04/21/2024 13:25 At the request of: MELISANICCI BLANC Procedure: CT chest wo con EXAMINATION: CT chest wo con HISTORY: Ground glass opacity present on imaging of lung R91.8 COMPARISON: 04/13/2023 TECHNIQUE: Multi-planar CT images were created with IV contrast. Axial, Coronal, and Sagittal images. Dose reduction techniques were achieved byusing automated exposure control and/or adjustment of mA and/or kV according to patient size and/or use of iterative reconstruction technique. FINDINGS: LUNGS: Scattered groundglass and linear opacities are noted mostsignificant in the right upper lobe, lingula and left lower lobes. Atelectasis and/orscar is favored. A few scattered punctate pulmonary nodules stable both in numberand size from the prior exam. PLEURA: No mass, effusion, or pneumothorax. VASCULATURE: No abnormality. FUNMI: No mass or adenopathy. MEDIASTINUM: No mass or adenopathy. CARDIAC: No enlargement. Small amount of pericardial fluid felt to bewithin normal limits Coronary arteries: Absent AORTA: No aortic aneurysm. Minimal calcific atherosclerosis CHEST WALL: No mass or axillary adenopathy. BONES: No bone lesion or fracture. LIMITED ABDOMEN: 2 focal areas of hypodensity one in the right hepaticlobe measuring 2.46 m axial image 105 partially visualized in the second in the caudate measuring 1.8 cm axial image 102. Partially visualized 5.3 cm hyperdense lesion posterior left kidney possibly a hyperdense cyst OTHER: Negative. CT/CT chest wo con IMPRESSION: Stable scattered patchy parenchymal infiltrates and punctate nodules Partially visualized 5.3 cm hypodense lesion of the left kidney possibly a hyperdense cyst 2 focal hypodensities in the liver, nonspecific but stable Electronically authenticated by: MELYSSA PITTS Date: 04/21/2024 13:25 Dictated By: Melyssa Pitts M.D. Signed By:04/21/24 1328 DD/ 1325 TD/TT: Plaster Helper: Generic External Data Provider [facility] Final Result documented in this encounter Visit Diagnoses Not on filedocumented in this encounter Care Teams Reading Interventionist Relationship Specialty Start Date End Date Josey Youssef MD [address] [place] [address] PCP - General Family Medicine 12/21/22 documented as of this encounter
--- OUTSIDE RECORDS SUMMARY | 2025-04-23 07:51 | XMS_ITS | Encounter Summary ---
Author Organization [facility] Address [address] [place] [address] Care Team Providers Care Meat Loiner Name Role Phone Josey Gonsalez MD Primary Care Provider [phone] Encounter Details Date Type Department Care Team (Late st Contact Info) Description 01/12/2023 Orders Only [facility] [place] [facility] [address] [facility] [address] [place] [phone] Josey Gonsalez MD [address] [facility] [address] [place] [address] Social History Tobacco Use Types Packs/Day Years [...] EST Office Visit [facility] [place] 112 [facility] [address] [place] [address] Josey Gonsalez MD [address] [facility] [address] [place] [address] documented as of this encounter Procedures Procedure Name Priority Date/Time Associated Diagnosis Comments CT ANGIO CHEST W CONT(INCL WO) Routine 01/11/2023 9:13 AM EDT documented in this encounter Results * CT ANGIO CHEST W CONT(INCL WO) (01/11/2023 9:13 AM EDT) Anatomical Region Laterality Modality Radiographic Lynn ging us Josey Gonsalez MD IMG XR PROCEDURES Final Result documented in this encounter Visit Diagnoses Not on filedocumented in this encounter Care Teams Meat Loiner Relationship Specialty Start Date End Date Josey Gonsalez MD [address] [place] [address] PCP - General Family Medicine 12/21/22 documented as of this encounter
--- OUTSIDE RECORDS SUMMARY | 2025-04-23 07:51 | XMS_ITS | Encounter Summary ---
Author Organization [facility] Address [address] [place] [address] Care Team Providers Care Rail Operator Name Role Phone Josey Gonsalez MD Primary Care Provider [phone] Encounter Details Date Type Department Care Team (Late st Contact Info) Description 04/15/2025 Abstract [facility] [place] [facility] [address] [facility] [address] [place] [phone] Josey Gonsalez MD [address] [facility] 110 [place] [address] Social History Tobacco Use Types Packs/Day Years [...] declined 10/22/2023 How often do you attend congregational or yarsanism serv ices? Patient declined 10/22/2023 Do you belong to any clubs o r organizations such as congregational groups, unions, fraternal or athletic groups, or [...] place to sleep or slept in a mcfp (including now)? No 10/22/2023 Comments Unknown Sex [...] Office Visit [facility] [place] Contreras [address] [facility] [address] [place] [address] Josey Gonsalez MD [address] [facility] [address] [place] [address] documented as of this encounter Goals Goal Patient Goal Type Associated Problems Recent Progress Patient-Stated? Author Help patient manage antidepressant medication Care Plan Patient on antidepressant monitoring plan No Josey Gonsalez MD Baseline PHQ-9 Care Plan Baseline PHQ-9 No Josey Gonsalez MD documented as of this encounter Visit Diagnoses Not on filedocumented in this encounter Additional Health Concerns Active Problems Noted Date Diagnosed Date Patient on antidepressant monitoring plan 2024 Baseline PHQ-9 04/07/2025 documented as of this encounter Care Teams Rail Operator Relationship Specialty Start Date End Date Josey Gonsalez MD 112 [facility] [address] [place] [address] PCP - General Family Medicine 12/21/22 documented as of this encounter
--- OUTSIDE RECORDS SUMMARY | 2025-04-23 07:51 | XMS_ITS | Encounter Summary ---
Author Organization [facility] Address [address] [place] [address] Care Team Providers Care Cloth Burler Name Role Phone Unavailable Primary Care Provider Unavailabl e Source Comments In the event this information is protected by the Federal Confidentiality of Alcohol and Drug AbusePatient Records regulations: The Federal rules restrict any use of the information to criminally investigate or prosecute any alcohol or drug abuse patient.[facility] Encounter Details Date Type Department Care Team (Late st Contact Info) Description 02/07/2021 Patient Msg Orthopaedics [address] [place] [id number] Chris Zavaleta MD [address] [place] [id number] Appointment Cancellation Request Social History Tobacco Use Types Packs/Day Years Used Date Smoking Tobacco: Never Assessed Area Deprivation Index Answer Date Dillon rded National Score (1-100), lower number is lower ri sk Not on file 12/22/2020 State Score (1-10), lower number is lower risk N ot on file 12/22/2020 Data from: https://www.neighborhoodatlas.medicine.[facility].edu/. Last address used for calculation Not on file 12/22/2020 Comments Unknown Sex and Gender Information Value Date Recorded Sex Assigned at Female 02/02/2021 4:52 PM EDT Legal Sex Female 8:22 AM EST Gender Identity Female 02/02/2021 4:52 PM EDT Sexual Orientation Straight 02/02/2021 4: 52 PM EDT COVID-19 Exposure Response Date Recorded In the last month, have you been in contact with someone who was confirmed or suspected to have Coronavirus / COVID-19? Unable to assess 01/28/2021 4:21 PM EDT documented as of this encounter Plan of Treatment Not on file documented as of this encounter Visit Diagnoses Not on filedocumented in this encounter
--- OUTSIDE RECORDS SUMMARY | 2025-04-23 07:51 | XMS_ITS | Encounter Summary ---
Author Organization [facility] Address [address] [facility] [place] [address] Care Team Providers Care Commission For The Blind Director Name Role Phone Josey Gonsalez MD Primary Care Provider [phone] Encounter Details Date Type Department Care Team (Late st Contact Info) Description 01/29/2023 Abstract [facility] [place] Ram Alan 112 [facility] [address] [place] [address] Josey Gonsalez MD [address] [place] [facility] [address] [place] [address] Social History Tobacco Use Types Packs/Day Years [...] EST Office Visit [facility] [place] 112 [facility] [address] [place] [address] Josey Gonsalez MD 112 [facility] [address] [place] [address] documented as of this encounter Visit Diagnoses Not on filedocumented in this encounter Care Teams Commission For The Blind Director Relationship Specialty Start Date End Date Josey Gonsalez MD 112 [place] [address] PCP - General Family Medicine 12/21/22 documented as of this encounter
--- OUTSIDE RECORDS SUMMARY | 2025-04-23 07:51 | XMS_ITS | Encounter Summary ---
Author Organization [facility] Address [address] [place] [address] Care Team Providers Care Drip Molder Name Role Phone Josey Gonsalez MD Primary Care Provider [phone] Encounter Details Date Type Department Care Team (Late st Contact Info) Description 04/28/2024 Abstract [facility] [place] [facility] [address] [facility] [address] [place] [phone] Josey Gonsalez MD 112 [facility] 110 [place] [address] Social History Tobacco Use Types Packs/Day Years [...] declined 10/22/2023 How often do you attend rastafarian or hindu serv ices? Patient declined 10/22/2023 Do you belong to any clubs o r organizations such as rastafarian groups, unions, fraternal or athletic groups, or [...] place to sleep or slept in a prison (including now)? No 10/22/2023 Comments Unknown Sex and Gender Information Value Date Recorded Sex Assigned at Not on file Legal Sex Female 7:00 PM EDT Gender Identity Not on file Sexual Orientation Not on file documented as of this encounter Plan of Treatment Upcoming Encounters Date Type Department Care Team (Late st Contact Info) Description 07/13/2025 8:15 AM EST Office Visit [facility] [place] [facility] [address] [facility] [address] [place] [phone] Josey Gonsalez MD 112 [facility] 110 [place] [address] documented as of this encounter Visit Diagnoses Not on filedocumented in this encounter Care Teams Drip Molder Relationship Specialty Start Date End Date Josey Gonsalez MD 112 [facility] 110 [place] [address] PCP - General Family Medicine 12/21/22 documented as of this encounter
--- OUTSIDE RECORDS SUMMARY | 2025-04-23 07:51 | XMS_ITS | Encounter Summary ---
Author Organization [facility] Address [address] [facility] [place] [address] Care Team Providers Care Medical Records Analyst Name Role Phone Josey Gonsalez MD Primary Care Provider Encounter Details Date Type Department Care Team (Late st Contact Info) Description 02/21/2023 Abstract [facility] [place] Ram Alan 112 [facility] [address] [place] [address] Josey Gonsalez MD [address] [place] [address] [place] [address] Social History Tobacco Use Types Packs/Day Years [...] EST Office Visit [facility] [place] 112 [facility] [address] [place] [address] Josey Gonsalez MD 112 [facility] [address] [place] [address] documented as of this encounter Visit Diagnoses Not on filedocumented in this encounter Care Teams Medical Records Analyst Relationship Specialty Start Date End Date Josey Gonsalez MD [address] [place] [address] PCP - General Family Medicine 12/21/22 documented as of this encounter
--- OUTSIDE RECORDS SUMMARY | 2025-04-23 07:51 | XMS_ITS | Encounter Summary ---
Author Organization [facility] Address [address] [facility] [place] [address] Care Team Providers Care Junior Electrical Engineer Name Role Phone Josey Youssef MD Primary Care Provider [phone] Encounter Details Date Type Department Care Team (Late st Contact Info) Description 04/13/2023 Clinisync Result Encounter [facility] External Department Unsolicited [...] 07/13/2025 8:15 AM EST Office Visit [facility] [address] [facility] 110 [place] [address] Josey Youssef MD 112 [facility] [address] [place] [address] documented as of this encounter Procedures Procedure Name Priority Date/Time Associated Diagnosis Comments CT CHEST WO CON 04/13/2023 10:20 AM EDT documented in this encounter Results * CT CHEST WO CON (04/13/2023 10:20 AM EDT) Anatomical Region Laterality Modality Other 04/13/2023 10:2 0 AM EDT Narrative 04/13/2023 10:20 AM EDT [address] [address] [address] Scan Report Signed Patient: DHARA DALLAS MR#: [id number] : 1970 Acct:[id number] Age/Sex: 52 / F ADM Date: 04/13/23 Loc: CT Attending Dr: Melisa Blanc D.O. Ordering Physician: Melisa Blanc D.O. Date of Service: 04/13/23 Procedure(s): CT chest wo con Accession Number(s): [id number] cc: JOSEY YOUSSEF [place] [id number] Patient Name: DHARA DALLAS MRN: [id number] date: 1970 Sex: F Assigned Patient Location: CT Current Patient Location: CT Accession/Order Number: [id number] Exam Date: 04/13/2023 08:05 Report Date: 04/13/2023 10:20 At the request of: MELISA BLANC Procedure: CT chest wo con EXAMINATION: CT chest wo con HISTORY: Nonspecific Abnormal Finding Lung Field R91.8 COMPARISON: 01/11/2023, 01/12/2023 TECHNIQUE: Multi-planar CT images were created with IV contrast. Axial, Coronal, and Sagittal images. Dose reduction techniques were achieved by using automated exposure control and/or adjustment of mA and/or kV according to patient size and/or use of iterative reconstruction technique. FINDINGS: LUNGS: Stable patchy and linear opacity in the anterior right upper lobe likely represents an area of atelectasis or scar. New area of patchy and linear opacity in the lingula, I favor atelectasis. A few scattered punctate pulmonary nodules are noted measuring up to 2 mm, nonspecific. PLEURA: No mass, effusion, or pneumothorax. VASCULATURE: No abnormality. FUNMI: No mass or adenopathy. MEDIASTINUM: No mass or adenopathy. CARDIAC: No enlargement, pericardial thickening, or significant calcification. AORTA: No aneurysm or dissection. CHEST WALL: No mass or axillary adenopathy. BONES: No bone lesion or fracture. LIMITED ABDOMEN: 4.5 cm soft tissue density lesion of the left kidney. Additional fluid density lesion in the cortex., Stable from prior ultrasound OTHER: Negative. CT/CT chest wo con IMPRESSION: Scattered infiltrates in the right upper lobe and lingula, atelectasis/scar is favored Electronically authenticated by: MELYSSA PITTS Date: 04/13/2023 10:20 Dictated By: Melyssa Pitts M.D. Signed By: 04/13/23 1022 DD/ 1020 TD/TT: Pipe Fitter Welding: Procedure Note Radiology, Radiologist, MD - 04/19/2023 [place] [address] CT Scan Report Signed Patient: DHARA DALLAS AMR#: [id number] : 1970Acct:[id number] Age/Sex: 52 / FADM Date: 04/13/23 Loc: CT Attending Dr: Melisa Blanc D.O. Ordering Physician: Melisa Blanc D.O. Date of Service: 04/13/23 Procedure(s): CT chest wo con Accession Number(s): [id number] cc: JOSEY YOUSSEF The [address] [address] Patient Name: DHARA DALLAS MRN: [id number] date: 1970 Sex: F Assigned Patient Location: CT Current Patient Location: CT Accession/Order Number: [id number] Exam Date: 04/13/2023 08:05 Report Date: 04/13/2023 10:20 At the request of: MELISA BLANC Procedure: CT chest wo con EXAMINATION: CT chest wo con HISTORY: Nonspecific Abnormal Finding Lung Field R91.8 COMPARISON: 01/11/2023, 01/12/2023 TECHNIQUE: Multi-planar CT images were created with IV contrast. Axial, Coronal, and Sagittal images. Dose reduction techniques were achieved byusing automated exposure control and/or adjustment of mA and/or kV according to patient size and/or use of iterative reconstruction technique. FINDINGS: LUNGS: Stable patchy and linear opacity in the anterior right upper lobe likely represents an area of atelectasis or scar. New area of patchy and linear opacity in the lingula, I favor atelectasis. A few scattered punctate pulmonary nodules are noted measuring up to 2 mm, nonspecific. PLEURA: No mass, effusion, or pneumothorax. VASCULATURE: No abnormality. FUNMI: No mass or adenopathy. MEDIASTINUM: No mass or adenopathy. CARDIAC: No enlargement, pericardial thickening, or significantcalcification. AORTA: No aneurysm or dissection. CHEST WALL: No mass or axillary adenopathy. BONES: No bone lesion or fracture. LIMITED ABDOMEN: 4.5 cm soft tissue density lesion of the left kidney. Additional fluid density lesion in the cortex., Stable from priorultrasound OTHER: Negative. CT/CT chest wo con IMPRESSION: Scattered infiltrates in the right upper lobe and lingula,atelectasis/scar is favored Electronically authenticated by: MELYSSA PITTS Date: 04/13/2023 10:20 Dictated By: Melyssa Pitts M.D. Signed By:04/13/23 1022 DD/ 1020 TD/TT: Pipe Fitter Welding: Generic External Data Provider [facility] Final Result documented in this encounter Visit Diagnoses Not on filedocumented in this encounter Care Teams Junior Electrical Engineer Relationship Specialty Start Date End Date Josey Youssef MD [address] [place] [id number] PCP - General Family Medicine 12/21/22 documented as of this encounter
--- OUTSIDE RECORDS SUMMARY | 2025-04-23 07:51 | XMS_ITS | Encounter Summary ---
Author Organization [facility] Address [address] [place] [address] Care Team Providers Care Outside Sales Consultant Name Role Phone Josey Youssef MD Primary Care Provider [phone] Encounter Details Date Type Department Care Team (Late st Contact Info) Description 04/18/2024 Clinisync Result Encounter [facility] External Department Unsolicited Josey Youssef MD [address] [place] [address] [place], [place] [address] Social History Tobacco Use Types Packs/Day Years [...] declined 10/22/2023 How often do you attend scientologist or lutheran serv ices? Patient declined 10/22/2023 Do you belong to any clubs o r organizations such as scientologist groups, unions, fraternal or athletic groups, or [...] place to sleep or slept in a correction (including now)? No 10/22/2023 Comments Unknown Sex [...] EST Office Visit [facility] [place] Contreras 112 [facility] 110 [place] [address] Josey Youssef MD 112 [facility] 110 [place] [address] documented as of this encounter Procedures Procedure Name Priority Date/Time Associated Diagnosis Comments MM TOMOSYNTHESIS SCREENING BI 04/18/2024 12:10 PM EDT documented in this encounter Results * MM TOMOSYNTHESIS SCREENING BI (04/18/2024 12:10 PM EDT) Anatomical Region Laterality Modality Other 04/18/2024 12:1 0 PM EDT Narrative 04/18/2024 12:11 PM EDT [address] [address] Mammography Report Signed Patient: DHARA DALLAS MR#: [id number] : 1970 Acct:[id number] Age/Sex: 53 / F ADM Date: 04/18/24 Loc: MAMMO Attending Dr: JOSEY YOUSSEF Ordering Physician: JOSEY YOUSSEF Results: Date of Service: 04/18/24 Follow Up: Procedure(s): MM tomosynthesis screening BI Accession Number(s): [id number] cc: JOSEY YOUSSEF Patient Name: DHARA DALLAS MR#: [id number] : 1970 Exam Date: 04/18/2024 Ordering Doctor: [...] lung cancer at age 78. LOCATION: [facility] BREAST COMPOSITION: There are scattered [...] Signed By: 04/18/24 1211 DD/ 1210 TD/TT: Soda Jerker: Procedure Note Radiology, Radiologist, MD - 04/18/2024 [place] [address] Mammography Report Signed Patient: DHARA DALLAS AMR#: [id number] : 1970Acct:[id number] Age/Sex: 53 / FADM Date: 04/18/24 Loc: MAMMO Attending Dr: JOSEY YOUSSEF Ordering Physician: Taylor YOUSSEFults: Date of Service: 04/18/24Follow Up: Procedure(s): MM tomosynthesis screening BI Accession Number(s): [id number] cc: JOSEY YOUSSEF Patient Name: DHARA DALLAS MR#: [id number] : 1970 Exam Date: 04/18/2024 Ordering Doctor: [...] with lung cancer at age78. LOCATION: [facility] BREAST COMPOSITION: There are scattered [...] M.D. Signed By:04/18/24 1211 DD/ 1210 TD/TT: Soda Jerker: us Josey Youssef MD [facility] Final Result documented in this encounter Visit Diagnoses Not on filedocumented in this encounter Care Teams Outside Sales Consultant Relationship Specialty Start Date End Date Josey Yuossef MD [address] [address] PCP - General Family Medicine 12/21/22 documented as of this encounter
--- OUTSIDE RECORDS SUMMARY | 2025-04-23 07:51 | XMS_ITS | Clinical Summary ---
Author Organization [facility] Address [address] [place] [address] Care Team Providers Care Facilities Officer Name Role Phone Unavailable Primary Care Provider Unavailabl e Allergies Active Allergy Reactions Criticality Noted Date Comments Hydromorphone Itching 03/04/2013 Medications DULoxetine (CYMBALTA) 30 mg capsule Take 90 mg by mouth once daily. 1 Active amLODIPine (NORVASC) 5 mg tablet Take 1 tablet by mouth once daily. 1 Active OLANZapine (ZYPREXA) 5 mg tablet Take 1 tablet by mouth once daily. 1 Active furosemide (LASIX) 20 mg tablet Take 1 tablet by mouth once daily. 1 Active L.acid/L.casei/ B.bif/B.aditya/FOS (PROBIOTIC BLEND ORAL) Take by mouth. Act josemanuel dicyclomine (BENTYL) 10 mg capsule Take 1 capsule by mouth as needed. 1 Active cyclobenzaprine (FLEXERIL) 10 mg tablet Take 10 mg by mouth as needed (for migraines). Active albuterol HFA (PROVENTIL HFA, VENTOLIN HFA) 90 mcg/actuation inhaler Inhale 1 Puff as instructed as needed. 1 Active POTASSIUM-99 ORAL Take 1 capsule by mouth once daily. Active Social History Tobacco Use Types Packs/Day Years Used Date Smoking Tobacco: Never Assessed Area Deprivation Index Answer Date Dillon rded National Score (1-100), lower number is lower ri sk Not on file 12/22/2020 State Score (1-10), lower number is lower risk N ot on file 12/22/2020 Data from: https://www.neighborhoodatlas.medicine.[facility].edu/. Last address used for calculation Not on file 12/22/2020 Comments Unknown Sex and Gender Information Value Date Recorded Sex Assigned at Female 02/02/2021 4:52 PM EDT Legal Sex Female 8:22 AM EST Gender Identity Female 02/02/2021 4:52 PM EDT Sexual Orientation Straight 02/02/2021 4: 52 PM EDT Last Filed Vital Signs Vital Sign Reading Time Taken Comments Blood Pressure - - Pulse - - Temperature - - Respiratory Rate - - Oxygen Saturation - - Inhaled Oxygen Concentration - - Weight 99.8 kg (220 lb) 12/22/2020 12:24 PM EDT Height 166.4 cm (5' 5.5 ) 12/22/2020 12:24 PM ED T Body Mass Index 36.05 12/22/2020 12:24 PM EDT Plan of Treatment Health Maintenance Due Date Last Done Comments Anxiety Screening 1987 Depression Screening 1987 HIV Screening 1987 Hepatitis C Screening 1987 DTaP,Tdap,Td Vaccine (1 - Tdap) 1988 Hepatitis B Vaccine (1 of 3 - 19+ 3-dose series) 07/30 Cervical Cancer Screening [address] Colonography 2014 Cologuard (FIT-DNA) 2014 Colonoscopy 2014 Colorectal Cancer Screening 2014 Diabetes Screening 2014 Fecal Occult Blood 2014 Lipid Screening 2014 Sigmoidoscopy 2014 Pneumococcal Vaccine: 50+ (1 of 1 - PCV) 2019 Shingrix Vaccine (1 of 2) 2019 Influenza Vaccine (#1) 2025 Insurance [employer]
--- OUTSIDE RECORDS SUMMARY | 2025-04-23 07:51 | XMS_ITS | Encounter Summary ---
Author Organization [facility] Address [address] [facility] [place] [address] Care Team Providers Care Asbestos Textile Supervisor Name Role Phone Josey Gonsalez MD Primary Care Provider [phone] Encounter Details Date Type Department Care Team (Late st Contact Info) Description 02/14/2023 Abstract [facility] [place] Ram Alan 112 [facility] [address] [place] [address] Josey Gonsalez MD 112 [facility] 110 [place] [address] Social History Tobacco Use Types Packs/Day Years [...] EST Office Visit [facility] [place] Phillipse 112 [facility] [address] [place] [address] Josey Gonsalez MD 112 [facility] [address] [place] [address] documented as of this encounter Visit Diagnoses Not on filedocumented in this encounter Care Teams Asbestos Textile Supervisor Relationship Specialty Start Date End Date Josey Gonsalez MD 112 [place] [address] PCP - General Family Medicine 12/21/22 documented as of this encounter
--- OUTSIDE RECORDS SUMMARY | 2025-04-23 07:51 | XMS_ITS | Encounter Summary ---
Author Organization [facility] Address [address] [facility] [place] [address] Care Team Providers Care Assistant Loan Processor Name Role Phone Josey Gonsalez MD Primary Care Provider [phone] Encounter Details Date Type Department Care Team (Late st Contact Info) Description 04/09/2023 Abstract [facility] [place] Ram Alan 112 [facility] [address] [place] [address] Josey Gonsalez MD 112 [facility] 110 [place] [address] Social History Tobacco Use Types Packs/Day Years [...] Office Visit [facility] [place] Phillipse 112 [facility] [address] [place] [address] Josey Gonsalez MD 112 [facility] 110 [place] [address] documented as of this encounter Visit Diagnoses Not on filedocumented in this encounter Care Teams Assistant Loan Processor Relationship Specialty Start Date End Date Josey Gonsalez MD 112 [place] [address] PCP - General Family Medicine 12/21/22 documented as of this encounter
--- OUTSIDE RECORDS SUMMARY | 2025-04-23 07:52 | XMS_ITS | Encounter Summary ---
Author Organization [facility] Address [address] [facility] [place] [address] Care Team Providers Care Advertisement Distributor Name Role Phone Josey Gonsalez MD Primary Care Provider [phone] Encounter Details Date Type Department Care Team (Late st Contact Info) Description 03/27/2023 Abstract [facility] [place] Ram Alan 112 [facility] [address] [place] [address] Josey Gonsalez MD 112 [facility] 110 [place] [address] Social History Tobacco Use Types Packs/Day Years [...] EST Office Visit [facility] [place] Phillipse 112 [facility] [address] [place] [address] Josey Gonsalez MD 112 [facility] 110 [place] [address] documented as of this encounter Visit Diagnoses Not on filedocumented in this encounter Care Teams Advertisement Distributor Relationship Specialty Start Date End Date Josey Gonsalez MD 112 [place] [address] PCP - General Family Medicine 12/21/22 documented as of this encounter
--- OUTSIDE RECORDS SUMMARY | 2025-04-23 07:52 | XMS_ITS | Encounter Summary ---
Author Organization [facility] Address [address] [facility] [place] [address] Care Team Providers Care Ekg Manager Name Role Phone Josey Gonsalez MD Primary Care Provider [phone] Encounter Details Date Type Department Care Team (Late st Contact Info) Description 04/04/2023 Abstract [facility] [place] Ram Alan 112 [facility] [address] [place] [address] Josey Gonsalez MD [address] [facility] 110 [place] [address] Social History Tobacco Use Types Packs/Day Years [...] EST Office Visit [facility] [place] Phillipse 112 [facility] [address] [place] [address] Josey Gonsalez MD 112 [facility] 110 [place] [address] documented as of this encounter Visit Diagnoses Not on filedocumented in this encounter Care Teams Ekg Manager Relationship Specialty Start Date End Date Josey Gonsalez MD 112 [place] [address] PCP - General Family Medicine 12/21/22 documented as of this encounter
--- OUTSIDE RECORDS SUMMARY | 2025-04-23 07:52 | XMS_ITS | Encounter Summary ---
Author Organization [facility] Address [address] [facility] [place] [address] Care Team Providers Care Drug Purchaser Name Role Phone Josey Gonsalez MD Primary Care Provider [phone] Encounter Details Date Type Department Care Team (Late st Contact Info) Description 03/14/2023 Abstract [facility] [place] Ram Alan 112 [facility] [address] [place] [address] Josey Gonsalez MD 112 [facility] 110 [place] [address] Social History Tobacco Use Types Packs/Day Years [...] EST Office Visit [facility] [place] Phillipse 112 [facility] [address] [place] [address] Josey Gonsalez MD 112 [facility] 110 [place] [address] documented as of this encounter Visit Diagnoses Not on filedocumented in this encounter Care Teams Drug Purchaser Relationship Specialty Start Date End Date Josey Gonsalez MD 112 [place] [address] PCP - General Family Medicine 12/21/22 documented as of this encounter
--- OUTSIDE RECORDS SUMMARY | 2025-04-23 07:52 | XMS_ITS | Encounter Summary ---
Author Organization [facility] Address [address] [place] [address] Care Team Providers Care Arch Cushion Press Operator Name Role Phone Josey Gonsalez MD Primary Care Provider [phone] Encounter Details Date Type Department Care Team (Late st Contact Info) Description 10/25/2023 Abstract [facility] [place] [facility] 112 [facility] 110 [place] [phone] Josey Gonsalez MD [address] [facility] 110 [place] [address] Social History Tobacco Use Types Packs/Day Years [...] declined 10/22/2023 How often do you attend presybeterian or yazdanism serv ices? Patient declined 10/22/2023 Do you belong to any clubs o r organizations such as presybeterian groups, unions, fraternal or athletic groups, or [...] 8:15 AM EST Office Visit [facility] [place] [facility] [address] [place] [address] [place] [phone] Josey Gonsalez MD 112 [facility] 110 [place] [address] documented as of this encounter Visit Diagnoses Not on filedocumented in this encounter Care Teams Arch Cushion Press Operator Relationship Specialty Start Date End Date Josey Gonsalez MD 112 [facility] 110 [place] [address] PCP - General Family Medicine 12/21/22 documented as of this encounter
--- OUTSIDE RECORDS SUMMARY | 2025-04-23 07:52 | XMS_ITS | Encounter Summary ---
Author Organization [facility] Address [address] [place] [address] Care Team Providers Care Soup Person Name Role Phone Josey Gonsalez MD Primary Care Provider [phone] Encounter Details Date Type Department Care Team (Late st Contact Info) Description 05/02/2023 Abstract [facility] [place] Ram Alan 112 [facility] [address] [place] [address] Josey Gonsalez MD 112 [facility] 110 [place] [address] Social History Tobacco Use Types Packs/Day Years [...] 8:15 AM EST Office Visit [facility] [place] Phillipse 112 [facility] [address] [place] [address] Josey Gonsalez MD 112 [facility] 110 [place] [address] documented as of this encounter Visit Diagnoses Not on filedocumented in this encounter Care Teams Soup Person Relationship Specialty Start Date End Date Josey Gonsalez MD 112 [place] [address] PCP - General Family Medicine 12/21/22 documented as of this encounter
--- OUTSIDE RECORDS SUMMARY | 2025-04-23 07:52 | XMS_ITS | Encounter Summary ---
Author Organization [facility] Address [address] [place] [address] Care Team Providers Care Track Coach Name Role Phone Josey Gonsalez MD Primary Care Provider Encounter Details Date Type Department Care Team (Late st Contact Info) Description 01/22/2024 Abstract [facility] [place] [facility] 112 [facility] 110 [place] [phone] Josey Gonsalez MD 112 [facility] 110 [place] [address] Social History Tobacco Use Types Packs/Day Years [...] declined 10/22/2023 How often do you attend methodist or episcopal serv ices? Patient declined 10/22/2023 Do you belong to any clubs o r organizations such as methodist groups, unions, fraternal or athletic groups, or [...] 8:15 AM EST Office Visit [facility] [place] [facility] [address] [place] [phone] Josey Gonsalez MD 112 [facility] 110 [place] [address] documented as of this encounter Visit Diagnoses Not on filedocumented in this encounter Care Teams Track Coach Relationship Specialty Start Date End Date Josey Gonsalez MD 112 [facility] 110 [place] [address] PCP - General Family Medicine 12/21/22 documented as of this encounter
--- OUTSIDE RECORDS SUMMARY | 2025-04-23 07:52 | XMS_ITS | Encounter Summary ---
Author Organization [facility] Address [address] [place] [address] Care Team Providers Care Senior Sous Chef Name Role Phone Josey Gonsalez MD Primary Care Provider [phone] Encounter Details Date Type Department Care Team (Late st Contact Info) Description 10/25/2023 Abstract [facility] [place] [facility] 112 [facility] [facility] 110 [place] [phone] Josey Gonsalez MD [address] [facility] 110 [place] [address] Social History Tobacco Use Types Packs/Day Years [...] How often do you attend rastafarian or uatsdin serv ices? Patient declined 10/22/2023 Do you [...] place to sleep or slept in a assisted (including now)? No 10/22/2023 Comments Unknown Sex and Gender Information Value Date Recorded Sex Assigned at Not on file Legal Sex Female 7:00 PM EDT Gender Identity Not on file Sexual Orientation Not on file documented as of this encounter Plan of Treatment Upcoming Encounters Date Type Department Care Team (Late st Contact Info) Description 07/13/2025 8:15 AM EST Office Visit [facility] [place] [facility] [address] [place] [phone] Josey Gonsalez MD 112 [facility] 110 [place] [address] documented as of this encounter Visit Diagnoses Not on filedocumented in this encounter Care Teams Senior Sous Chef Relationship Specialty Start Date End Date Josey Gonsalez MD 112 [facility] 110 [place] [address] PCP - General Family Medicine 12/21/22 documented as of this encounter
--- OUTSIDE RECORDS SUMMARY | 2025-04-23 07:52 | XMS_ITS | Encounter Summary ---
Author Organization [facility] Address [address] [place] [address] Care Team Providers Care Wedding Designer Name Role Phone Josey Gonsalez MD Primary Care Provider [phone] Reason for Visit * Reason Comments Med Refill Encounter Details Date Type Department Care Team (Late st Contact Info) Description 10/25/2023 Refill [facility] [place] [facility] [address] [place] [address] [place] [address] Josey Gonsalez MD [address] [place] [address] [place] [address] Essential hypertension Social History Tobacco Use Types Packs/Day Years [...] declined 10/22/2023 How often do you attend caodaism or hinduism serv ices? Patient declined 10/22/2023 Do you belong to any clubs o r organizations such as caodaism groups, unions, fraternal or athletic groups, or [...] 8:15 AM EST Office [facility] [address] [place] [address] [place] [address] Josey Gonsalez MD 112 [facility] 110 [place] [address] documented as of this encounter Visit Diagnoses Diagnosis Essential hypertension Unspecified essential hypertension documented in this encounter Care Teams Wedding Designer Relationship Specialty Start Date End Date Josey Gonsalez MD 112 [facility] 110 [place] [address] PCP - General Family Medicine 12/21/22 documented as of this encounter
--- OUTSIDE RECORDS SUMMARY | 2025-04-23 07:52 | XMS_ITS | Encounter Summary ---
Author Organization [facility] Address [address] [place] [address] Care Team Providers Care Wood Room Hand Name Role Phone Josey Gonsalez MD Primary Care Provider [phone] Encounter Details Date Type Department Care Team (Late st Contact Info) Description 01/22/2024 Abstract [facility] [place] [facility] 112 [facility] 110 [place] [phone] Josey Gonsalez MD 112 [facility] 110 [place] [address] Social History Tobacco Use Types Packs/Day Years [...] How often do you attend congregational or caodaism serv ices? Patient declined 10/22/2023 Do you [...] Manor [address] [place] [phone] Josey Gonsalez MD 112 [facility] 110 [place] [address] documented as of this encounter Visit Diagnoses Not on filedocumented in this encounter Care Teams Wood Room Hand Relationship Specialty Start Date End Date Josey Gonsalez MD 112 [facility] 110 [place] [address] PCP - General Family Medicine 12/21/22 documented as of this encounter
--- OUTSIDE RECORDS SUMMARY | 2025-04-23 07:52 | XMS_ITS | Encounter Summary ---
Author Organization [facility] Address [address] [facility] [place] [address] Care Team Providers Care Youth Development Professional Name Role Phone Josey Gonsalez MD Primary Care Provider [phone] Encounter Details Date Type Department Care Team [...] 8:15 AM EST Office Visit [facility] [address] [facility] [address] [place] [address] Josey Gonsalez MD 112 [facility] 110 [place] [address] documented as of this encounter Procedures Procedure Name Priority Date/Time Associated Diagnosis Comments RT PULMONARY FUNCTION TEST 04/13/2023 8:13 AM EDT documented in this encounter Results * RT PULMONARY FUNCTION TEST (04/13/2023 8:13 AM EDT) Anatomical Region Laterality Modality Other 04/13/2023 8:13 AM EDT Narrative 04/13/2023 8:13 AM EDT [place] [id number] Respiratory Report Signed Patient: DHARA DALLAS MR#: [id number] : 1970 Acct:[id number] Age/Sex: 52 / F ADM Date: 04/13/23 Loc: CT Attending Dr: Anders Hickey D.O. Ordering Physician: Anders Hickey D.O. Date of Service: 04/13/23 Procedure(s): RT pulmonary function test Accession Number(s): [id number] cc: [facility] Test Date: 2023-04-13 Pat Name: DHARA DALLAS Department: Room: - Gender: Female Ocean Lifeguard: Joellen Eduardo RRT : 1970 Requested By: Anders Hickey Order Number: [id number] Reading MD: Anders Hickey Interpretive Statements Pulmonary function testing was completed according to ATS criteria. Findings were considered accurate and reproducible. Both pre- and post-bronchodilator values utilized for spirometry. No prior studies available for comparison. Spirometry (based on pre-bronchodilator values): -FEV1/FVC: Reduced @ 63% -FEV1: Moderately reduced @ 55%. -FVC: Reduced @ 68% -There is a positive bronchodilator response in FVC. Lung volumes by plethysmography (based on pre-bronchodilator values): -RV: Increased @ 269% -TLC: Increased @ 144% Diffusion capacity: -DLCO: Normal @ 83% when corrected for Hb 15.4g/dL Flow-volume loop: -Moderate obstructive pattern Flow-pressure loop: ???Asthmatic pattern Impressions: -Moderate obstructive pattern on spirometry with a positive bronchodilator response. Elevated RV and TLC suggest air trapping and hyperinflation respectively. Normal diffusion capacity. Overall study is more consistent with asthma compared to COPD/emphysema. Clinical correlation required. Electronically Signed On 04-16-2023 9:25:53 EDT by Anders Hickey Dictated By: Anders Hickey D.O. Signed By: 04/16/23925 DD/ 2 TD/TT: Saw Sharpener: Procedure Note Radiology, Radiologist, - 04/20/2023 [place] [address] Respiratory Report Signed Patient: DHARA DALLAS AMR#: [id number] : 1970Acct:[id number] Age/Sex: 52 / FADM Date: 04/13/23 Loc: CT Attending Dr: Anders Hickey D.O. Ordering Physician: Anders Hickey D.O. Date of Service: 04/13/23 Procedure(s): RT pulmonary function test Accession Number(s): [id number] cc: [facility] Test Date: 2023-04-13 Pat Name: DHARA DALLAS Department: Room: - Gender: Female Ocean Lifeguard: Joellen Eduardo RRT : 1970 Requested By: Anders Hickey Order Number: [id number] Reading MD: Anders Hickey Interpretive Statements Pulmonary function testing was completed according to ATS criteria.Findings were considered accurate and reproducible. Both pre- andpost-bronchodilator values utilized for spirometry. No prior studies available for comparison. Spirometry (based on pre-bronchodilator values): -FEV1/FVC: Reduced @ 63% -FEV1: Moderately reduced @ 55%. -FVC: Reduced @ 68% -There is a positive bronchodilator response in FVC. Lung volumes by plethysmography (based on pre-bronchodilator values): -RV: Increased @ 269% -TLC: Increased @ 144% Diffusion capacity: -DLCO: Normal @ 83% when corrected for Hb 15.4g/dL Flow-volume loop: -Moderate obstructive pattern Flow-pressure loop: ???Asthmatic pattern Impressions: -Moderate obstructive pattern on spirometry with a positive bronchodilator response. Elevated RV and TLC suggest air trapping and hyperinflation respectively. Normal diffusion capacity. Overall study is more consistent with asthma compared to COPD/emphysema. Clinical correlation required. Electronically Signed On 04-16-2023 9:25:53 EDT by Anders Hickey Dictated By: Anders Hickey D.O. Signed By:04/16/23925 DD/ 2 TD/TT: Saw Sharpener: us Generic External Data Provider [facility] Final Result documented in this encounter Visit Diagnoses Not on filedocumented in this encounter Care Teams Youth Development Professional Relationship Specialty Start Date End Date Josey Gonsalez MD 112 [place] [address] PCP - General Family Medicine 12/21/22 documented as of this encounter
--- OUTSIDE RECORDS SUMMARY | 2025-04-23 07:52 | XMS_ITS | Encounter Summary ---
Author Organization [facility] Address [address] [facility] [place] [address] Care Team Providers Care Gasoline Locomotive Crane Operator Name Role Phone Josey Gonsalez MD Primary Care Provider [phone] Encounter Details Date Type Department Care Team (Late Contact Info) Description 05/08/2023 Abstract [facility] [place] Alan [address] [place] [address] [place] [phone] Josey Gonsalez MD 112 [address] [place] [address] Social History Tobacco Use Types Packs/Day Years Used Date Smoking Tobacco: Every Day Cigarettes Smokeless Tobacco: Never Tobacco Cessation:Ready to Q uit: Not Asked; Counseling Given: Not Answered Alcohol Use Standard Drinks/Week Comments Yes 0 (1 standard drink = 0.6 oz pure alcohol) 1-2 drinks monthly or less, caffeine yes coffee,soda Comments Unknown Sex and Gender Information Value Date Recorded Sex Assigned at Not on file Legal Sex Female 7:00 PM EDT Gender Identity Not on file Sexual Orientation Not on file documented as of this encounter Plan of Treatment Upcoming Encounters Date Type Department Care Team (Late Contact Info) Description 07/13/2025 8:15 AM EST Office Visit [facility] [place] Contreras 112 [facility] 110 [place] [phone] Josey Gonsalez MD 112 [facility] 110 [place], [place] [address] documented as of this encounter Visit Diagnoses Not on filedocumented in this encounter Care Teams Gasoline Locomotive Crane Operator Relationship Specialty Start Date End Date Josey Gonsalez MD [address] [address] PCP - General Family Medicine 12/21/22 documented as of this encounter
--- OUTSIDE RECORDS SUMMARY | 2025-04-23 07:52 | XMS_ITS | Encounter Summary ---
Author Organization [facility] Address [address] [place] [address] Care Team Providers Care Cross Tie Tram Loader Name Role Phone Josey Gonsalez MD Primary Care Provider [phone] Encounter Details Date Type Department Care Team (Late st Contact Info) Description 05/22/2023 Abstract [facility] [place] Ram Alan [address] [facility] 110 [place] [phone] Josey Gonsalez MD 112 [facility] 110 [place] [address] Social History Tobacco Use Types Packs/Day Years [...] Office Visit [facility] [place] Contreras [address] [facility] 110 [place] [address] Josey Gonsalez MD 112 [facility] 110 [place] [address] documented as of this encounter Visit Diagnoses Not on filedocumented in this encounter Care Teams Cross Tie Tram Loader Relationship Specialty Start Date End Date Josey Gonsalez MD 112 [facility] 110 [place] [address] PCP - General Family Medicine 12/21/22 documented as of this encounter
--- OUTSIDE RECORDS SUMMARY | 2025-04-23 07:52 | XMS_ITS | Encounter Summary ---
Author Organization [facility] Address [address] [place] [address] Care Team Providers Care Auto Refinisher Name Role Phone Josey Gonsalez MD Primary Care Provider [phone] Encounter Details Date Type Department Care Team (Late st Contact Info) Description 03/01/2023 Orders Only [facility] [place] Ram Alan [address] [facility] 110 [place] [phone] Madison Oconnell, BRITTANY [address] [place] 110 [place] [address] Social History Tobacco Use Types Packs/Day Years [...] 8:15 AM EST Office Visit [facility] [place] Castillonce [address] [facility] 110 [place] [address] Josye Gonsalez MD [address] [place] 110 [place] [address] documented as of this encounter Procedures Procedure Name Priority Date/Time Associated Diagnosis Comments CT HEAD OR BRAIN W/ & W/O CONTRAST Routine 02/28/2023 1:36 PM EDT documented in this encounter Results * CT HEAD OR BRAIN W/ & W/O CONTRAST (02/28/2023 1:36 PM EDT) Anatomical Region Laterality Modality Radiographic Lynn ging us Madison Oconnell METHODS ENGINEER IMG XR PROCEDURES Final Resu lt documented in this encounter Visit Diagnoses Not on filedocumented in this encounter Care Teams Auto Refinisher Relationship Specialty Start Date End Date Josey Gonsalez MD 112 [place] [address] PCP - General Family Medicine 12/21/22 documented as of this encounter
--- OUTSIDE RECORDS SUMMARY | 2025-04-23 07:52 | XMS_ITS | Encounter Summary ---
Author Organization [facility] Address [address] [facility] [place] [address] Care Team Providers Care Women'S Health Care Nurse Practitioner Name Role Phone Josey Gonsalez MD Primary Care Provider [phone] Encounter Details Date Type Department Care Team (Late st Contact Info) Description 02/26/2023 Abstract [facility] [place] Ram Alan 112 [facility] 110 [place] [address] Josey Gonsalez MD 112 [place] [facility] 110 [place] [address] Social History Tobacco Use Types Packs/Day Years [...] EST Office Visit [facility] [place] Phillipse 112 [facility] [address] [place] [address] Josey Gonsalez MD 112 [facility] 110 [place] [address] documented as of this encounter Visit Diagnoses Not on filedocumented in this encounter Care Teams Women'S Health Care Nurse Practitioner Relationship Specialty Start Date End Date Josey Gonsalez MD 112 [place] [address] PCP - General Family Medicine 12/21/22 documented as of this encounter
--- OUTSIDE RECORDS SUMMARY | 2025-04-23 07:52 | XMS_ITS | Encounter Summary ---
Author Organization [facility] Address [address] [place] [address] Care Team Providers Care Prn Physical Therapist Name Role Phone Josey Gonsalez MD Primary Care Provider [phone] Encounter Details Date Type Department Care Team (Late st Contact Info) Description 05/21/2023 Abstract [facility] [place] Ram Alan [address] [facility] 110 [place] [phone] Josey Gonsalez MD 112 [place] 110 [place] [address] Social History Tobacco Use Types Packs/Day Years [...] Office Visit [facility] [place] Contreras [address] [facility] 110 [place] [address] Josey Gonsalez MD 112 [facility] 110 [place] [address] documented as of this encounter Visit Diagnoses Not on filedocumented in this encounter Care Teams Prn Physical Therapist Relationship Specialty Start Date End Date Josey Gonsalez MD 112 [facility] 110 [place] [address] PCP - General Family Medicine 12/21/22 documented as of this encounter
--- OUTSIDE RECORDS SUMMARY | 2025-04-23 07:52 | XMS_ITS | Encounter Summary ---
Author Organization [facility] Address [address] [facility] [place] [address] Care Team Providers Care Spray Foam Installer Name Role Phone Josey Gonsalez MD Primary Care Provider [phone] Encounter Details Date Type Department Care Team (Late st Contact Info) Description 02/21/2023 Abstract [facility] [place] Ram Alan 112 [facility] 110 [place] [address] Josey Gonsalez MD 112 [facility] 110 [place] [address] Social History Tobacco Use Types Packs/Day Years [...] EST Office Visit [facility] [place] Phillipse 112 [facility] [address] [place] [address] Josey Gonsalez MD 112 [facility] 110 [place] [address] documented as of this encounter Visit Diagnoses Not on filedocumented in this encounter Care Teams Spray Foam Installer Relationship Specialty Start Date End Date Josey Gonsalez MD 112 [place] [address] PCP - General Family Medicine 12/21/22 documented as of this encounter
--- OUTSIDE RECORDS SUMMARY | 2025-04-23 07:52 | XMS_ITS | Encounter Summary ---
Author Organization [facility] Address [address] [place] [address] Care Team Providers Care Payment Rep Name Role Phone Josey Gonsalez MD Primary Care Provider [phone] Encounter Details Date Type Department Care Team (Late st Contact Info) Description 02/28/2023 Orders Only [facility] [place] Family Phillips [address] [facility] 110 [place] [address] A, Unknown Practice [address] [place] [phone] Social History Tobacco Use Types Packs/Day Years [...] Visit [facility] [place] Phillips [address] [place] [address] [place] [address] Josey Gonsalez MD [address] [place] 110 [place] [phone] documented as of this encounter Procedures Procedure Name Priority Date/Time Associated Diagnosis Comments CT HEAD FOR BRAINLAB W/O CONTRAST Routine 02/28/2023 11:[address] HEAD FOR BRAINLAB W/O CONTRAST Routine 02/28/2023 11:12 AM EDT documented in this encounter Results * CT HEAD FOR BRAINLAB W/O CONTRAST (02/28/2023 11:29 AM EDT) Anatomical Region Laterality Modality Radiographic Lynn ging us Madison Oconnell MOTOR LODGE CLERK IMG XR PROCEDURES Final Resu lt * CT HEAD FOR BRAINLAB W/O CONTRAST (02/28/2023 11:12 AM EDT) Anatomical Region Laterality Modality Radiographic Lynn ging us Unknown Practice A IMG XR PROCEDURES Final Resul t documented in this encounter Visit Diagnoses Not on filedocumented in this encounter Care Teams Payment Rep Relationship Specialty Start Date End Date Josey Gonsalez MD 112 [place] [address] PCP - General Family Medicine 12/21/22 documented as of this encounter
--- OUTSIDE RECORDS SUMMARY | 2025-04-23 07:52 | XMS_ITS | Encounter Summary ---
Author Organization [facility] Address [address] [facility] [place] [address] Care Team Providers Care Imaging System Administrator Name Role Phone Josey Gonsalez MD Primary Care Provider [phone] Encounter Details Date Type Department Care Team (Late st Contact Info) Description 04/04/2023 Abstract [facility] [place] Ram Alan 112 [facility] 110 [place] [address] Josey Gonsalez MD 112 [facility] 110 [place] [address] Social History Tobacco Use Types Packs/Day Years [...] Visit [facility] [place] Phillipse 112 [facility] [address] [place] [address] Josey Gonsalez MD 112 [facility] 110 [place] [address] documented as of this encounter Visit Diagnoses Not on filedocumented in this encounter Care Teams Imaging System Administrator Relationship Specialty Start Date End Date Josey Gonsalez MD 112 [place] [address] PCP - General Family Medicine 12/21/22 documented as of this encounter
--- OUTSIDE RECORDS SUMMARY | 2025-04-23 07:52 | XMS_ITS | Encounter Summary ---
Author Organization [facility] Address [address] [place] [address] Care Team Providers Care Director Microbiology Name Role Phone Josey Gonsalez MD Primary Care Provider [phone] Encounter Details Date Type Department Care Team (Late st Contact Info) Description 10/25/2023 Abstract [facility] [place] [facility] [address] [facility] 110 [place] [phone] Josey Gonsalez MD [address] [facility] 110 [place] [address] Social History Tobacco Use Types Packs/Day Years [...] declined 10/22/2023 How often do you attend muslim or bahai serv ices? Patient declined 10/22/2023 Do you belong to any clubs o r organizations such as muslim groups, unions, fraternal or athletic groups, or [...] place to sleep or slept in a skilled nursing (including now)? No 10/22/2023 Comments Unknown Sex and Gender Information Value Date Recorded Sex Assigned at Not on file Legal Sex Female 7:00 PM EDT Gender Identity Not on file Sexual Orientation Not on file documented as of this encounter Plan of Treatment Upcoming Encounters Date Type Department Care Team (Late st Contact Info) Description 07/13/2025 8:15 AM EST Office Visit [facility] [place] [facility] [address] [place] [address] [place] [phone] Josey Gonsalez MD 112 [facility] 110 [place] [address] documented as of this encounter Visit Diagnoses Not on filedocumented in this encounter Care Teams Director Microbiology Relationship Specialty Start Date End Date Josey Gonsalez MD 112 [facility] 110 [place] [address] PCP - General Family Medicine 12/21/22 documented as of this encounter
--- OUTSIDE RECORDS SUMMARY | 2025-04-23 07:52 | XMS_ITS | Encounter Summary ---
Author Organization [facility] Address [address] [facility] [place] [address] Care Team Providers Care Tea Bag Packer Name Role Phone Josey Gonsalez MD Primary Care Provider [phone] Encounter Details Date Type Department Care Team (Late st Contact Info) Description 05/02/2023 Abstract [facility] [place] Ram Alan 112 [facility] [address] [place] [address] Josey Gonsalez MD 112 [place] [facility] 110 [place] [address] Social History Tobacco Use Types Packs/Day Years [...] EST Office Visit [facility] [place] Phillipse 112 [facility] [address] [place] [address] Josey Gonsalez MD 112 [facility] 110 [place] [address] documented as of this encounter Visit Diagnoses Not on filedocumented in this encounter Care Teams Tea Bag Packer Relationship Specialty Start Date End Date Josey Gonsalez MD 112 [place] [address] PCP - General Family Medicine 12/21/22 documented as of this encounter
--- NOTE | 2025-04-23 08:21 | PM.CN ---
Consult Note: HPI Data of Consult Patient: known to practice within the last 3 years Consult date: 04/23/25 Requesting Physician: Josefina Graves NP Primary Care Provider: SANDY YOUSSEF Consult Narrative Reason for consult: low back and bilateral hip pain Narrative: Nesha Dallas a pleasant 54 year old female returns for care of chronic bilateral low back and SIJ pain > 5 years unresponsive to heat, ice, tylenol, nsaids, and > 6 weeks of provider guided HEP. prior imaging consistent with multilevel degeneration and facet arthropathy. Pt notes significant improvement from prior injections, notes worsening pain over the last 6 months without injury. Pain today 5/10 aching increasing to 8/10 with twisting, bending, pushing, pulling, lifting, housework. Pt finds benefit to sitting, lying, and sleep. currently on duloxetine, diclofenac, flexeril, xanax prn with minimal benefit. cc:: CC: Josefina Graves NP Review of Systems ROS Musculoskeletal Reports: back pain and joint pain PFSH PFSH Medical History Surgical History History of tonsillectomy ?Z90.89 - Acquired absence of other organs (ICD-10) H/O hemorrhoidectomy ?Z98.890 - Other specified postprocedural states (ICD-10) H/O: hysterectomy ?Z90.710 - Acquired absence of both cervix and uterus (ICD-10) H/O ovarian cystectomy ?Z98.890 - Other specified postprocedural states (ICD-10) ?Z87.42 - Personal history of other diseases of the female genital tract (ICD-10) History of cholecystectomy ?Z90.49 - Acquired absence of other specified parts of digestive tract (ICD-10) History of appendectomy ?Z90.49 - Acquired absence of other specified parts of digestive tract (ICD-10) S/P ?Z98.891 - History of uterine scar from previous surgery (ICD-10) Social History Smoking status: Heavy tobacco smoker Gender Identity: female Meds Home Medications and Allergies Home Medications ?Medication ?Instructions ?Recorded ?Confirmed ?Type 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 1 tab PO QDAY 01/03/23 01/17/24 History amlodipine 10 mg tablet 10 mg PO DAILY 01/03/23 01/17/24 History aspirin 81 mg capsule 81 mg PO DAILY 01/03/23 01/17/24 History cyclobenzaprine 10 mg tablet 5 mg PO QPM 01/03/23 01/17/24 History diclofenac 50 mg tablet 100 ea topical QDAY 01/03/23 01/17/24 History del.rel-capsai 0.025%-m-salic 25%-ment 6% liqd duloxetine 60 mg capsule,delayed 90 mg PO DAILY 01/03/23 01/17/24 History release (Cymbalta) loratadine 10 mg tablet 10 mg PO DAILY 01/03/23 01/17/24 History (Allerclear) magnesium glycinate 400 mg PO QDAY 01/03/23 03/26/23 History olanzapine 5 mg tablet 7.5 mg PO QPM 01/03/23 01/17/24 History omega 1-evg-dee-fish oil 1,000 mg 1 cap PO DAILY 01/03/23 01/17/24 History (120 mg-180 mg) capsule (Fish Oil) omeprazole 20 mg capsule,delayed 20 mg PO DAILY 01/03/23 01/17/24 History release tramadol 50 mg tablet 50 mg PO DAILY PRN pain 01/03/23 01/17/24 History potassium chloride 10 mEq 10 meq PO DAILY 01/12/23 01/17/24 History tablet,extended release (K-Tab) Allergies Allergy/AdvReac Type Severity Reaction Status Date / Time hydromorphone (From Dilaudid) Allergy Mild Verified 01/17/24 02:04 Exam Constitutional Documenting provider has reviewed patient's vital signs: yes Common normals: no apparent distress, oriented x3, healthy appearing, alert and well nourished General appearance: cooperative [facility] Common normals: normocephalic, hearing grossly normal bilaterally and moist oral mucous membranes Head and scalp: normocephalic Eye Common normals: PERRL Pupil: PERRL Neck & C-Spine Common normals: full ROM General: normal visual inspection Chest Common normals: inspection of chest normal Respiratory Common normals: normal respiratory effort, no retractions and no use of accessory muscles Back & Pelvis Lumbar spine/lower back: ROM limited, pain with ROM and straight leg raise negative bilaterally; no lumbar spinal tenderness Sacroiliac joints: SI joint(s) abnormal Other: bilateral sij positive jennifer(patricks), gaenslens, thigh thrust, compression test strength 5/5 in BLE sensation intact BLE Neuro Common normals: oriented x3 Sensorium/orientation: alert Psych Common normals: mental status grossly normal, thought process normal, cooperative, affect normal, speech normal and activity/motor behavior normal Speech: normal speech Thought process: normal thought process Results Additional Findings Additional findings: If on a controlled substance or opioids, I have checked an [place]AR[place] report on this patient and there are no aberrancies noted in the prescribing history.??If on a controlled substance or opioid a drug screen was completed and reviewed within the last year, and if there has not been a drug screen completed we ordered one today to monitor higher risk, state monitored pain medication use. As part of providing excellent, safe, comprehensive care, the following was completed at our patient's visit: 1. A medication reconciliation and review to ensure accurate knowledge of current/active medications, including asking our patients to inform us about any rqcw-ahn-kpxsypx medications or herbal remedies/nutritional supplements/alternative remedies. 2. A review to specifically ensure our patients have had annual screening for screening for depression, screening for tobacco use, and screening for unhealthy alcohol use. For concerning screenings had a discussion with the patient, provided patient education, and recommended follow-up with primary care provider when appropriate. If patient noted with a risk of falling, they received education on strength, gait, and balance training to prevent future risk of falling. Portions of this note may have been carried over from the previous visit and updated as appropriate. Please note this office utilizes paper charting in addition to the electronic medical record. A list of current medications, vitals, and PMH is available there as the clinical staff outside of myself do not have access to [facility] charting during the clinic day operations. As part of providing quality comprehensive care the current medications, vitals, and PMH were reviewed in the paper chart. Assessment and Plan Assessment and Plan (1) Sacroiliitis: (2) Lumbar spondylosis: Plan The patient has had over 3 months of moderate to severe low back and bilateral SIJ pain with functional impairment and inadequate response to conservative care including NSAIDS (unless there are contraindication such as concurrent blood thinners), multiple oral or topical pain medications, and home exercise program/physical therapy.? Patient has completed >6 weeks of guided home exercise program and/or formal physical therapy program without relief of their symptoms.? The Oswestry Disability Index was completed, and the patient scored a 44%.? update lumbosacral xray to assess chronic pain of low back and sacroiliac joints dc diclofenac, start mobic 7.5mg bid prn pain with food. risks vs benefits reviewed can utilize otc tylenol prn pain proceed with bilateral SIJ injection under fluoroscopy, prior left SIJ injection provided >80% improvement greater than 6 months continue HEP as tolerated f/u after injection
== END 2025-04-23 07:48 | disposition home or self-care (01) ==
PROVIDERS: PCP Family Medicine; Visit Provider Nurse Practitioner
DX: M46.1 Sacroiliitis, not elsewhere classified (principal); M47.816 Spondylosis without myelopathy or radiculopathy, lumbar region
CPT/HCPCS: G0463

== ENCOUNTER 2025-04-23 08:27 | Outpatient (OUT) | payer OTHER, SELFPAY ==
--- OUTSIDE RECORDS SUMMARY | 2025-04-23 08:33 | XMS_ITS | Encounter Summary ---
Author Organization [facility] Address [address] [place] [address] Care Team Providers Care Wooden Box Maker Name Role Phone Josey Gonsalez MD Primary Care Provider [phone] Encounter Details Date Type Department Care Team (Late st Contact Info) Description 04/28/2024 Abstract [facility] [address] [facility] 110 [place] [phone] Josey Gonsalez MD 112 [address] [facility] 110 [place] [address] Social History Tobacco Use Types Packs/Day Years [...] declined 10/22/2023 How often do you attend amish or church serv ices? Patient declined 10/22/2023 Do you belong to any clubs o r organizations such as amish groups, unions, fraternal or athletic groups, or [...] 8:15 AM EST Office Visit [facility] [place] [facility] [address] [place] [phone] Josey Gonsalez MD 112 [facility] 110 [place] [address] documented as of this encounter Visit Diagnoses Not on filedocumented in this encounter Care Teams Wooden Box Maker Relationship Specialty Start Date End Date Josey Gonsalez MD 112 [facility] 110 [place] [address] PCP - General Family Medicine 12/21/22 documented as of this encounter
--- OUTSIDE RECORDS SUMMARY | 2025-04-23 08:33 | XMS_ITS | Encounter Summary ---
Author Organization [facility] Address [address] [place] [address] Care Team Providers Care Personal Attendant Name Role Phone Josey Gonsalez MD Primary Care Provider [phone] Encounter Details Date Type Department Care Team (Late st Contact Info) Description 01/22/2024 Orders Only [facility] [address] [place] [address] Unallocated, Noms Provider, [address] [place] [address] Social History Tobacco Use Types Packs/Day Years [...] declined 10/22/2023 How often do you attend lutheran or religion serv ices? Patient declined 10/22/2023 Do you belong to any clubs o r organizations such as lutheran groups, unions, fraternal or athletic groups, or [...] place to sleep or slept in a mcc (including now)? No 10/22/2023 Comments Unknown Sex [...] AM EST [facility] [address] [place] [address] Josey Gonsalez MD [address] [facility] 110 [place] [address] documented as of this encounter Procedures Procedure Name Priority Date/Time Associated Diagnosis Comments SCANNED LABS Routine 01/17/2024 11:40 AM EDT documented in this encounter Results * SCANNED LABS (01/17/2024 11:40 AM EDT) us Noms Provider Unallocated LAB CHG PERFORMABLE S Final Result documented in this encounter Visit Diagnoses Not on filedocumented in this encounter Care Teams Personal Attendant Relationship Specialty Start Date End Date Josey Gonsalez MD [address] [facility] 110 [place] [address] PCP - General Family Medicine 12/21/22 documented as of this encounter
--- OUTSIDE RECORDS SUMMARY | 2025-04-23 08:33 | XMS_ITS | Encounter Summary ---
Author Organization [facility] Address [address] [place] [address] Care Team Providers Care Information Broker Name Role Phone Josey Gonsalez MD Primary Care Provider [phone] Encounter Details Date Type Department Care Team (Late st Contact Info) Description 03/28/2024 Abstract [facility] [address] [facility] 110 [place] [phone] Josey Gonsalez MD 112 [facility] 110 [place] [address] Social History Tobacco Use Types Packs/Day Years [...] How often do you attend methodist or bahai serv ices? Patient declined 10/22/2023 [...] AM EST Office Visit [facility] [place] [facility] [address] [place] [phone] Josey Gonsalez MD 112 [facility] 110 [place] [address] documented as of this encounter Visit Diagnoses Not on filedocumented in this encounter Care Teams Information Broker Relationship Specialty Start Date End Date Josey Gonsalez MD 112 [facility] 110 [place] [address] PCP - General Family Medicine 12/21/22 documented as of this encounter
--- OUTSIDE RECORDS SUMMARY | 2025-04-23 08:33 | XMS_ITS | Encounter Summary ---
Author Organization [facility] Address [address] [place] [address] Care Team Providers Care Warp Tying Machine Knotter Name Role Phone Josey Youssef MD Primary Care Provider [phone] Encounter Details Date Type Department Care Team (Late st Contact Info) Description 04/18/2024 Clinisync Result Encounter [facility] External Department Unsolicited Josey Youssef MD [address] [place] 110 [place], [place] [phone] Social History Tobacco Use Types Packs/Day Years [...] declined 10/22/2023 How often do you attend zoroastrian or amish serv ices? Patient declined 10/22/2023 Do you belong to any clubs o r organizations such as zoroastrian groups, unions, fraternal or athletic groups, or [...] EST Office Visit [facility] [place] [facility] 112 [facility] 110 [place] [address] Josey Youssef MD 112 [facility] 110 [place] [address] documented as of this encounter Procedures Procedure Name Priority Date/Time Associated Diagnosis Comments MM TOMOSYNTHESIS SCREENING BI 04/18/2024 12:10 PM EDT documented in this encounter Results * MM TOMOSYNTHESIS SCREENING BI (04/18/2024 12:10 PM EDT) Anatomical Region Laterality Modality Other 04/18/2024 12:1 0 PM EDT Narrative 04/18/2024 12:11 PM EDT [address] [address] Mammography Report Signed Patient: DHARA DALLAS MR#: [id number] : 1970 Acct:[id number] Age/Sex: 53 / F ADM Date: 04/18/24 Loc: MAMMO Attending Dr: JOSEY YOUSSEF Ordering Physician: JOSEY YOUSSEF Results: Date of Service: 04/18/24 Follow Up: Procedure(s): MM tomosynthesis screening BI Accession Number(s): [id number] cc: JOSEY YOUSSEF Patient Name: DHARA DALLAS MR#: [id number] : 1970 Exam Date: 04/18/2024 Ordering Doctor: [...] lung cancer at age 78. LOCATION: [facility] BREAST COMPOSITION: There are scattered areas of [...] Signed By: 04/18/24 1211 DD/ 1210 TD/TT: Powder Mixer: Procedure Note Radiology, Radiologist, MD - 04/18/2024 [place] [address] Mammography Report Signed Patient: DHARA DALLAS AMR#: [id number] : 1970Acct:[id number] Age/Sex: 53 / FADM Date: 04/18/24 Loc: MAMMO Attending Dr: JOSEY YOUSSEF Ordering Physician: Taylor YOUSSEFults: Date of Service: 04/18/24Follow Up: Procedure(s): MM tomosynthesis screening BI Accession Number(s): [id number] cc: JOSEY YOUSSEF Patient Name: DHARA DALLAS MR#: [id number] : 1970 Exam Date: 04/18/2024 Ordering Doctor: [...] with lung cancer at age78. LOCATION: [facility] BREAST COMPOSITION: There are scattered areas of [...] M.D. Signed By:04/18/24 1211 DD/ 1210 TD/TT: Powder Mixer: us Josey Youssef MD [facility] Final Result documented in this encounter Visit Diagnoses Not on filedocumented in this encounter Care Teams Warp Tying Machine Knotter Relationship Specialty Start Date End Date Josey Youssef MD [address] [address] PCP - General Family Medicine 12/21/22 documented as of this encounter
--- OUTSIDE RECORDS SUMMARY | 2025-04-23 08:33 | XMS_ITS | Encounter Summary ---
Author Organization [facility] Address [address] [facility] [place] [address] Care Team Providers Care Acquisition Manager Name Role Phone Josey Gonsalez MD Primary Care Provider [phone] Encounter Details Date Type Department Care Team (Late st Contact Info) Description 12/27/2022 Clinisync Result Encounter [facility] External Department Unsolicited Madison Oconnell NP 112 [facility] [facility] 110 [place] [address] Social History Tobacco Use Types Packs/Day Years [...] 8:15 AM EST [facility] [address] [facility] 110 [place] [address] Josey Gonsalez MD 112 [facility] 110 [place], [place] [phone] documented as of this encounter Procedures Procedure Name Priority Date/Time Associated Diagnosis Comments [facility] CREATININE Routine 12/27/2022 11:26 AM EDT XR CHEST 2 V 12/27/2022 10:57 AM EDT documented in this encounter Results * (ABNORMAL) [facility] CREATININE (12/27/2022 11:26 AM EDT) [facility] CREA 1.03(HH) 0.55 - 1.02 mg/dL [facility] TB EGFR-NON AF [place] 56(LL) >=60 mL/min/1.7 3m2 [facility] TB EGFR-AF [place] >60 >=60 mL/min/1.7 3m2 [facility] 12/27/2022 11:2 6 AM EDT 12/27/2022 11:26 AM EDT Narrative [facility] - 12/27/2022 11:39 AM EDT Madison Oconnell NP [facility] Final Result Performing Organization Address City/State/[facility] Co de Phone Number [facility] [address] [place] [address] * XR CHEST 2 V (12/27/2022 10:57 [...] on filedocumented in this encounter Care Teams Acquisition Manager Relationship Specialty Start Date End Date Josey Gonsalez MD [address] [address] PCP - General Family Medicine 12/21/22 documented as of this encounter
--- OUTSIDE RECORDS SUMMARY | 2025-04-23 08:33 | XMS_ITS | Encounter Summary ---
Author Organization [facility] Address [address] [place] [address] Care Team Providers Care Die Repair Machinist Name Role Phone Josey Gonsalez MD Primary Care Provider [phone] Encounter Details Date Type Department Care Team (Late st Contact Info) Description 04/16/2024 Abstract [facility] [address] [facility] 110 [place] [phone] Josey Gonsalez MD 112 [facility] 110 [place] [address] Social History Tobacco Use Types Packs/Day Years [...] declined 10/22/2023 How often do you attend islam or jew serv ices? Patient declined 10/22/2023 Do you belong to any clubs o r organizations such as islam groups, unions, fraternal or athletic groups, or [...] Visit [facility] [address] [place] [phone] Josey Gonsalez MD 112 [facility] 110 [place] [address] documented as of this encounter Visit Diagnoses Not on filedocumented in this encounter Care Teams Die Repair Machinist Relationship Specialty Start Date End Date Josey Gonsalez MD 112 [facility] 110 [place] [address] PCP - General Family Medicine 12/21/22 documented as of this encounter
--- OUTSIDE RECORDS SUMMARY | 2025-04-23 08:33 | XMS_ITS | Encounter Summary ---
Author Organization [facility] Address [address] [place] [address] Care Team Providers Care Exchange Administrator Name Role Phone Unavailable Primary Care Provider Unavailabl e Source Comments In the event this information is protected by the Federal Confidentiality of Alcohol and Drug AbusePatient Records regulations: The Federal rules restrict any use of the information to criminally investigate or prosecute any alcohol or drug abuse patient.[facility] Encounter Details Date Type Department Care Team (Late st Contact Info) Description 02/07/2021 Patient Msg Orthopaedics [address] [phone] Chris Zavaleta MD [address] [phone] Appointment Cancellation Request Social History Tobacco Use Types Packs/Day Years Used Date Smoking Tobacco: Never Assessed Area Deprivation Index Answer Date Dillon rded National Score (1-100), lower number is lower ri sk Not on file 12/22/2020 State Score (1-10), lower number is lower risk N ot on file 12/22/2020 Data from: https://www.neighborhoodatlas.medicine.[facility].edu/. Last address used for calculation Not on [...]
--- OUTSIDE RECORDS SUMMARY | 2025-04-23 08:33 | XMS_ITS | Encounter Summary ---
Author Organization [facility] Address [address] [place] [address] Care Team Providers Care Strip Cutter Name Role Phone Josey Gonsalez MD Primary Care Provider [phone] Encounter Details Date Type Department Care Team (Late st Contact Info) Description 04/22/2024 Abstract [facility] [address] [facility] 110 [place] [phone] Josey Gonsalez MD 112 [place] [facility] 110 [place] [address] Social History Tobacco Use Types Packs/Day Years [...] declined 10/22/2023 How often do you attend faith or muslim serv ices? Patient declined 10/22/2023 Do you belong to any clubs o r organizations such as faith groups, unions, fraternal or athletic groups, or [...] No 10/22/2023 Housing Stability Vital Sign Answer Autl e Recorded In the last 12 months, [...] place to sleep or slept in a halfway (including now)? No 10/22/2023 Comments Unknown Sex [...] AM EST Office Visit [facility] [address] [place] [phone] Josey Gonsalez MD 112 [facility] 110 [place] [address] documented as of this encounter Visit Diagnoses Not on filedocumented in this encounter Care Teams Strip Cutter Relationship Specialty Start Date End Date Josey Gonsalez MD 112 [facility] 110 [place] [address] PCP - General Family Medicine 12/21/22 documented as of this encounter
--- OUTSIDE RECORDS SUMMARY | 2025-04-23 08:33 | XMS_ITS | Encounter Summary ---
Author Organization [facility] Address [address] [place] [address] Care Team Providers Care Glucose And Syrup Weigher Name Role Phone Josey Gonsalez MD Primary Care Provider [phone] Encounter Details Date Type Department Care Team (Late st Contact Info) Description 04/28/2024 Abstract [facility] [address] [facility] [address] [place] [phone] Josey Gonsalez MD 112 [place] [facility] 110 [place] [address] Social History Tobacco Use Types Packs/Day Years [...] declined 10/22/2023 How often do you attend tenriism or yazidism serv ices? Patient declined 10/22/2023 Do you belong to any clubs o r organizations such as tenriism groups, unions, fraternal or athletic groups, or [...] place to sleep or slept in a penitentiary (including now)? No 10/22/2023 Comments Unknown Sex and Gender Information Value Date Recorded Sex Assigned at Not on file Legal Sex Female 7:00 PM EDT Gender Identity Not on file Sexual Orientation Not on file documented as of this encounter Plan of Treatment Upcoming Encounters Date Type Department Care Team (Late st Contact Info) Description 07/13/2025 8:15 AM EST Office Visit [facility] [address] [place] [phone] Josey Gonsalez MD 112 [facility] 110 [place] [address] documented as of this encounter Visit Diagnoses Not on filedocumented in this encounter Care Teams Glucose And Syrup Weigher Relationship Specialty Start Date End Date Josey Gonsalez MD 112 [facility] 110 [place] [address] PCP - General Family Medicine 12/21/22 documented as of this encounter
--- OUTSIDE RECORDS SUMMARY | 2025-04-23 08:33 | XMS_ITS | Encounter Summary ---
Author Organization [facility] Address [address] [place] [address] Care Team Providers Care Psychologist Experimental Name Role Phone Josey Gonsalez MD Primary Care Provider [phone] Encounter Details Date Type Department Care Team (Late st Contact Info) Description 05/12/2024 Abstract [facility] [address] [facility] 110 [place] [phone] Josey Gonsalez MD 112 [facility] 110 [place] [address] Social History Tobacco Use Types Packs/Day Years [...] declined 10/22/2023 How often do you attend zoroastrianism or jew serv ices? Patient declined 10/22/2023 Do you belong to any clubs o r organizations such as zoroastrianism groups, unions, fraternal or athletic groups, or [...] Hospital [address] [place] [phone] Josey Gonsalez MD 112 [facility] 110 [place] [address] documented as of this encounter Visit Diagnoses Not on filedocumented in this encounter Care Teams Psychologist Experimental Relationship Specialty Start Date End Date Josey Gonsalez MD 112 [facility] 110 [place] [address] PCP - General Family Medicine 12/21/22 documented as of this encounter
--- OUTSIDE RECORDS SUMMARY | 2025-04-23 08:33 | XMS_ITS | Encounter Summary ---
Author Organization [facility] Address [address] [place] [address] Care Team Providers Care Gis Professor Name Role Phone Josey Gonsalez MD Primary Care Provider [phone] Encounter Details Date Type Department Care Team (Late st Contact Info) Description 04/28/2024 Abstract [facility] [place] [facility] [address] [facility] [facility] 110 [place] [phone] Josey Gonsalez MD 112 [place] [facility] 110 [place] [address] Social History Tobacco Use Types Packs/Day Years [...] declined 10/22/2023 How often do you attend buddhism or anabaptist serv ices? Patient declined 10/22/2023 Do you belong to any clubs o r organizations such as buddhism groups, unions, fraternal or athletic groups, or [...] 8:15 AM EST Office Visit [facility] [place] [facility] [address] [place] [address] [place] [phone] Josey Gonsalez MD 112 [facility] 110 [place] [address] documented as of this encounter Visit Diagnoses Not on filedocumented in this encounter Care Teams Gis Professor Relationship Specialty Start Date End Date Josey Gonsalez MD 112 [facility] 110 [place] [address] PCP - General Family Medicine 12/21/22 documented as of this encounter
--- OUTSIDE RECORDS SUMMARY | 2025-04-23 08:33 | XMS_ITS | Encounter Summary ---
Author Organization [facility] Address [address] [place] [address] Care Team Providers Care Manufacturing Finance Manager Name Role Phone Josey Gonsalez MD Primary Care Provider [phone] Encounter Details Date Type Department Care Team (Late st Contact Info) Description 04/28/2024 Abstract [facility] [place] [facility] [address] [facility] 110 [place] [phone] Josey Gonsalez MD 112 [facility] 110 [place] [address] Social History Tobacco Use Types Packs/Day Years [...] declined 10/22/2023 How often do you attend hinduism or presybeterian serv ices? Patient declined 10/22/2023 Do you belong to any clubs o r organizations such as hinduism groups, unions, fraternal or athletic groups, or [...] [place] [address] [place] [address] [place] [phone] Josey Gonsalez MD 112 [facility] 110 [place] [address] documented as of this encounter Visit Diagnoses Not on filedocumented in this encounter Care Teams Manufacturing Finance Manager Relationship Specialty Start Date End Date Josey Gonsalez MD 112 [facility] 110 [place] [address] PCP - General Family Medicine 12/21/22 documented as of this encounter
--- OUTSIDE RECORDS SUMMARY | 2025-04-23 08:33 | XMS_ITS | Encounter Summary ---
Author Organization [facility] Address [address] [place] [address] Care Team Providers Care Capacity Planning Analyst Name Role Phone Josey Youssef MD Primary Care Provider [phone] Encounter Details Date Type Department Care Team [...] declined 10/22/2023 How often do you attend samaritan or taoist serv ices? Patient declined 10/22/2023 Do you belong to any clubs o r organizations such as samaritan groups, unions, fraternal or athletic groups, or [...] Office Visit [facility] [address] [facility] 110 [place] [address] Josey Youssef MD [address] [facility] 110 [place] [address] documented as of this encounter Procedures Procedure Name Priority Date/Time Associated Diagnosis Comments CT CHEST WO CON 04/21/2024 1:25 PM EDT documented in this encounter Results * CT CHEST WO CON (04/21/2024 1:25 PM EDT) Anatomical Region Laterality Modality Other 04/21/2024 1:25 PM EDT Narrative 04/21/2024 1:28 [place] [address] CT Scan Report Signed Patient: DHARA DALLAS MR#: [id number] : 1970 Acct:[id number] Age/Sex: 53 / F ADM Date: 04/18/24 Loc: CT Attending Dr: Melisa Blanc D.O. Ordering Physician: Melisa Blanc D.O. Date of Service: 04/18/24 Procedure(s): CT chest wo con Accession Number(s): [id number] cc: JOSEY YOUSSEF [place] [address] Patient Name: DHARA DALLAS MRN: [id number] date: 1970 Sex: F Assigned Patient Location: CT Current Patient Location: CT Accession/Order Number: [id number] Exam Date: 04/18/2024 07:40 Report Date: 04/21/2024 [...] Signed By: 04/21/24 1328 DD/ 1325 TD/TT: Maintenance Carpenter: Procedure Note Radiology, Radiologist, MD - 04/21/2024 [place] [address] CT Scan Report Signed Patient: DHARA DALLAS AMR#: [id number] : 1970Acct:[id number] Age/Sex: 53 / FADM Date: 04/18/24 Loc: CT Attending Dr: Melisa Blanc D.O. Ordering Physician: Melisa Blanc D.O. Date of Service: 04/18/24 Procedure(s): CT chest wo con Accession Number(s): [id number] cc: JOSEY YOUSSEF [address] [address] Patient Name: DHARA DALLAS MRN: [id number] date: 1970 Sex: F Assigned Patient Location: CT Current Patient Location: CT Accession/Order Number: [id number] Exam Date: 04/18/2024 07:40 Report Date: 04/21/2024 [...] M.D. Signed By:04/21/24 1328 DD/ 1325 TD/TT: Maintenance Carpenter: Generic External Data Provider [facility] Final Result documented in this encounter Visit Diagnoses Not on filedocumented in this encounter Care Teams Capacity Planning Analyst Relationship Specialty Start Date End Date Josey Youssef MD [address] [place] [address] PCP - General Family Medicine 12/21/22 documented as of this encounter
--- OUTSIDE RECORDS SUMMARY | 2025-04-23 08:33 | XMS_ITS | Clinical Summary ---
Author Organization [facility] Address [address] [place] [address] Care Team Providers Care Gaming Dealer Name Role Phone Unavailable Primary Care Provider [...] N ot on file 12/22/2020 Data from: [email or web address] Last address used for calculation Not [...]
--- OUTSIDE RECORDS SUMMARY | 2025-04-23 08:33 | XMS_ITS | Encounter Summary ---
Author Organization [facility] Address [address] [place] [address] Care Team Providers Care Reading Aide Name Role Phone Josey Gonsalez MD Primary Care Provider [phone] Encounter Details Date Type Department Care Team (Late st Contact Info) Description 04/28/2024 Abstract [facility] [place] [facility] [address] [facility] 110 [place] [phone] Josey Gonsalez MD 112 [facility] 110 [place] [address] Social History Tobacco Use Types Packs/Day Years [...] How often do you attend zoroastrian or temple serv ices? Patient declined 10/22/2023 Do you [...] to sleep or slept in a senior living (including now)? No 10/22/2023 Comments Unknown Sex and Gender Information Value Date Recorded Sex Assigned at Not on file Legal Sex Female 7:00 PM EDT Gender Identity Not on file Sexual Orientation Not on file documented as of this encounter Plan of Treatment Upcoming Encounters Date Type Department Care Team (Late st Contact Info) Description 07/13/2025 8:15 AM EST Office Visit [facility] [place] [facility] [address] [place] [address] [place] [phone] Josey Gonsalez MD 112 [facility] 110 [place] [address] documented as of this encounter Visit Diagnoses Not on filedocumented in this encounter Care Teams Reading Aide Relationship Specialty Start Date End Date Josey Gonsalez MD 112 [facility] 110 [place] [address] PCP - General Family Medicine 12/21/22 documented as of this encounter
--- OUTSIDE RECORDS SUMMARY | 2025-04-23 08:33 | XMS_ITS | Patient Health Record ---
Author Organization [facility] [place] Address [address] [place] [address] Care Team Providers Care Rigging Foreman Name Role Phone Josey Gonsalez MD Primary Care Provider Anders Bartlett Unavailable [phone] Allergies Allergen (clinical drug ingredient) Drug/Non Drug Allergy documented on EMR Reaction Allergy Type Onset Date Status hydromorphone Dilaudid Itching Drug Allergy Act josemanuel Reason For Referral No Information Medications Medication SIG (Take, Route, Frequency, Duration) Notes Start Date End Date Status Cyclobenzaprine HCl 10 MG 1 tablet at be dtime as needed Orally Once a day Active Potassium Chloride ER 10 MEQ 1 tablet wi th food Orally Twice a day Active DULoxetine HCl 60 MG 1 capsule Orally On ce a day Active Ipratropium-Albuterol 0.5-2. 5 (3) MG/3ML 3 mL as needed Inhalation every 6 hrs Active Loratadine 10 MG 1 tablet Orally Once a day Active Albuterol Sulfate HFA 108 (9 0 Base) MCG/ACT 2 puffs as needed Inhalation every 4 hrs Active Magnesium Glycinate 100 MG as directed Orally Active ALPRAZolam 0.5 MG Oral; Duration: 30 Days Active metFORMIN HCl 500 MG 1 tablet with a mame l Orally Once a day Active amLODIPine Besylate 10 MG 1 tablet Orall y Once a day Active Montelukast Sodium 10 MG 1 tablet Orally Once a day; Duration: 30 days 04/23/2023 Active Aspirin 81 81 MG 1 tablet Orally Once a day Active OLANZapine 5 MG 1 tablet Orally Once a day Active Atorvastatin Calcium 10 MG 1 tablet Oral ly Once a day Active Esmond 3 1000 MG 1 capsule Orally Onc e a day Active Centrum Silver - as directed Orally Active Ozempic (1 MG/DOSE) 4 MG/3ML DIAL AND IN JECT 1 MG UNDER THE SKIN ONE DAY A WEEK Subcutaneous; Duration: 28 Days Active traMADol HCl 50 MG 1 tablet as needed Orally Once a day Active Gabapentin 300 MG 1 capsule Orally Onc e a day Active Trelegy Ellipta 100-62.5-25 MCG/ACT 1 puff Inhalation Once a day Active Immunizations Vaccine Route Administration Date Status Comme nts Flu, Fluzone (97890) 6 mos+, single-dose syringe/vial (1882-4812) Unknown 06/15/2022 Administered SARS-COV-2 (COVID 19) bivale nt 30 mcg/0.3 ml dose Unknown 06/15/2022 Administered Social History Tobacco Use: Social History Observation Description Date Details (start date - stop date) Current Smoker NA - NA Tobacco Use/Smoking Question Answer Notes Patient is a current smoker Tobacco Control (Standard) Question Answer Notes Tobacco use: Current every day smoker Additional Findings: Tobacco user e-ciga rette,Moderate cigarette smoker (10-19 cigs/day) Problems Problem Type SNOMED Code ICD Code Onset Dates Problem Status W/U Status Risk Notes Problem Obesity (442459235) Obesity, unspecified (E66.9) Active confirmed Problem Uncomplicated moderate persistent asthma (196871728) Moderate persistent asthma, uncomplicated (J45.40) Active confirmed Problem Long-term current use of inhaled steroid (083098631) 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.51) Active confirmed Problem Chronic obstructive pulmonary disease (24789397) Chronic obstructive pulmonary disease (J44.9) Active confirmed Problem Hypertension (08406646) Hypertension (I10) Active confirmed Problem COPD - Chronic obstructive pulmonary disease (12248807) COPD (chronic obstructive pulmonary disease) (J44.9) Active confirmed Problem Chronic kidney disease (816244888) Chronic kidney disease (N18.9) Active confirmed Problem 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) Cigarette nicotine dependence with nicotine-induced disorder (F17.219) Active confirmed Problem Laboratory test result abnormal (280426242) Abnormal laboratory test (R89.9) Active confirmed Problem Lung field abnormal (115916653) Ground glass opacity present on imaging of lung (R91.8) Active confirmed Problem Renal cyst (047040658) Bilateral renal cysts (N28.1) Active confirmed Problem Body mass index 35.00 to 39.99 (404513502954231) Body mass index [BMI] 37.0-37.9, adult (Z68.37) Active confirmed Vital Signs Heart Rate 83 /min 04/30/2024 Temperature 96.8 degrees Fahrenheit 04/30/2024 Respiratory Rate 18 /min 04/30/2024 Blood pressure diastolic 82 mm Hg 04/30/2024 Oximetry 94 % 04/30/2024 Height 65 in 04/30/2024 Blood pressure systolic 141 mm Hg 04/30/2024 Weight 213.4 lbs 04/30/2024 BMI 35.51 kg/m2 04/30/2024 Encounters Encounter Location Date Provider Diagnosis Pulmonary [facility] [place] [address] [place] [address] 03/18/2025 [facility] [place] [address] [place] [address] 04/30/2024 [facility] Ground glass opacity present on imaging of lung R91.8 ; Moderate persistent asthma, uncomplicated J45.40 ; Cigarette nicotine dependence with nicotine-induced disorder F17.219 ; Bilateral renal cysts N28.1 ; 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 F/U chest CT 04/13/2023 showed persistent but unchanged RUL patchy GGO infiltrate, and a new area in the lingula. Repeat chest CT on 04/18/2024 showed stability of these groundglass opacities including unchanged in the lingula. The patient remains at high risk for malignancy given her smoking history. The groundglass opacities must be monitored closely as they can be precursors to cancer (adenocarcinoma in situ). Recommend monitoring chest CT with repeat imaging in 1 year per Fleischner Society guidelines. Patient voiced agreement. 04/30/2024 Moderate persistent asthma, uncomplicated (ICD-10 - J45.40) Patient remains on Trelegy and voices response to it; however, she continues to be symptomatic. She restarted smoking after the of her mother which is complicated her recovery. Additionally, she is subsisting on samples as Trelegy is not covered. Explained the patient that there will be a day that samples will not be available and at that time we will need to play the game with insurance by trialing different inhalers that are on the insurance formulary. I looked into several options today with the formulary populated into the [employer] software. I was unable to find any combination with a green smiley face equivalent to Trelegy; in fact, no lone LABA or LABA LAMA combination appear to be covered; only generic Symbicort had a green smiley face. For now, patient stated she would subsist on Trelegy samples; I explained that this office is unable to provide her with any for maintenance use. 04/30/2024 Cigarette nicotine dependence with nicotine-induced disorder (ICD-10 - F17.219) Discussed smoking cessation again. Patient had quit for a while, but restarted smoking approximate 1/2 pack a day after the of her mother. She states that she is going to try to quit again. She states that they are very expensive, as her cigarettes are now up to $11 a pack. She was encouraged to stop especially with her underlying lung disease and abnormal chest CT. 04/30/2024 Bilateral renal cysts (ICD-10 - N28.1) Patient had a left renal cyst identified on chest CT 04/13/2023 measured at 4.5cm. Patient states that she was evaluated by nephrology. Report on chest CT 04/18/2024 identified a left renal cyst, partially visualized, at 5.3cm. Due to the increase in size, I recommended the patient follow-up with nephrology for an opinion, which the patient voiced she would arrange an appointment. 04/30/2024 [facility] (current) use of inhaled steroids (ICD-10 - Z79.51) Patient was counseled to rinse & gargle with water after inhaled corticosteroid use. 04/30/2024 Obesity, unspecified (ICD-10 - E66.9) Patient's weight is inducing a restrictive pulmonary physiology. Weight loss indicated: Decrease calories, increase activity. 04/30/2024 Other Plan Of Treatment Pending Test Test Name Order Date BMP (BASIC MET PANEL - W/GFR) 04/03/2023 MICROALBUMIN with ALB/CREAT RATIO, URINE (MALB)) 04/03/2023 MRI Abdomen w/wo contrast 04/03/2023 Future Test Test Name Order Date CT Chest w/o contrast 04/13/2025 Insurance Providers Payer Name Payer Address Payer Phone Subscriber Number Group Number Insured Name Patient Relationship to Insured Coverage Start Date Coverage End Date [employer] [address] [address] [place] [address] [id number] Nesha [place] Self - patient is the insured Medical (General) History Medical History History ICD Code Depression F32.9 Anxiety F41.9 Essential hypertension I10 Bilateral renal cysts N28.1 Cigarette nicotine dependence with nicot ine-induced disorder F17.219 Ground glass opacity present on imaging of lung R91.8 Moderate persistent asthma, uncomplicate d J45.40 Surgical History Surgery Date(Month/Year) hysterectomy tonsillectomy and adenoidectomy appendectomy cholecystectomy section cyst removal-ovarian hemorrhoidectomy Hospitalization History Reason Date(Month/Year) Sepsis-[facility] 01/11/2023
--- OUTSIDE RECORDS SUMMARY | 2025-04-23 08:34 | XMS_ITS | Encounter Summary ---
Author Organization [facility] Address [address] [place] [address] Care Team Providers Care Manager Federal Name Role Phone Josey Gonsalez MD Primary Care Provider [phone] Encounter Details Date Type Department Care Team (Late st Contact Info) Description 04/15/2025 Abstract [facility] [place] [facility] [address] [facility] 110 [place] [phone] Josey Gonsalez MD 112 [place] [facility] 110 [place] [address] Social History Tobacco Use Types Packs/Day Years [...] declined 10/22/2023 How often do you attend christian or voodoo serv ices? Patient declined 10/22/2023 Do you belong to any clubs o r organizations such as christian groups, unions, fraternal or athletic groups, or [...] Office Visit [facility] [place] Contreras [address] [facility] 110 [place] [address] Josey Gonsalez MD 112 [place] [facility] 110 [place] [address] documented as of this encounter Goals Goal [...] documented as of this encounter Care Teams Manager Federal Relationship Specialty Start Date End Date Josey Gonsalez MD 112 [facility] 110 [place] [address] PCP - General Family Medicine 12/21/22 documented as of this encounter
--- OUTSIDE RECORDS SUMMARY | 2025-04-23 08:34 | XMS_ITS | Encounter Summary ---
Author Organization [facility] Address [address] [facility] [place] [address] Care Team Providers Care Dental Insurance Biller Name Role Phone Josey Gonsalez MD Primary Care Provider [phone] Encounter Details Date Type Department Care Team [...] 8:15 AM EST Office Visit [facility] [place] [address] [facility] [address] [place] [address] Josey Gonsalez MD 112 [place] [facility] 110 [place] [address] documented as of this encounter Procedures Procedure Name Priority Date/Time Associated Diagnosis Comments RT PULMONARY FUNCTION TEST 04/13/2023 8:13 AM EDT documented in this encounter Results * RT PULMONARY FUNCTION TEST (04/13/2023 8:13 AM EDT) Anatomical Region Laterality Modality Other 04/13/2023 8:13 AM EDT Narrative 04/13/2023 8:13 AM EDT [place] [id number] Respiratory Report Signed Patient: DHARA DALLAS MR#: [id number] : 1970 Acct:[id number] Age/Sex: 52 / F ADM Date: 04/13/23 Loc: CT Attending Dr: Anders Hickey D.O. Ordering Physician: Anders Hickey D.O. Date of Service: 04/13/23 Procedure(s): RT pulmonary function test Accession Number(s): [id number] cc: [facility] Test Date: 2023-04-13 Pat Name: DHARA DALLAS Department: Room: - Gender: Female Miner: Joellen Eduardo RRT : 1970 Requested By: Anders Hickey Order Number: [id number] Reading MD: Anders Hickey Interpretive Statements Pulmonary [...] D.O. Signed By: 04/16/23925 DD/ 2 TD/TT: Crtt: Procedure Note Radiology, Radiologist, - 04/20/2023 [place] [address] Respiratory Report Signed Patient: DHARA DALLAS AMR#: [id number] : 1970Acct:[id number] Age/Sex: 52 / FADM Date: 04/13/23 Loc: CT Attending Dr: Anders Hickey D.O. Ordering Physician: Anders Hickey D.O. Date of Service: 04/13/23 Procedure(s): RT pulmonary function test Accession Number(s): [id number] cc: [facility] Test Date: 2023-04-13 Pat Name: DHARA DALLAS Department: Room: - Gender: Female Miner: Joellen Eduardo RRT : 1970 Requested By: Anders Hickey Order Number: [id number] Reading MD: Anders Hickey Interpretive Statements Pulmonary [...] Hickey D.O. Signed By:04/16/23925 DD/ 2 TD/TT: Crtt: us Generic External Data Provider [facility] Final Result documented in this encounter Visit Diagnoses Not on filedocumented in this encounter Care Teams Dental Insurance Biller Relationship Specialty Start Date End Date Josey Gonsalez MD 112 [place] [address] PCP - General Family Medicine 12/21/22 documented as of this encounter
--- OUTSIDE RECORDS SUMMARY | 2025-04-23 08:34 | XMS_ITS | Encounter Summary ---
Author Organization [facility] Address [address] [facility] [place] [address] Care Team Providers Care Orthopedic Dentist Name Role Phone Josey Gonsalez MD Primary Care Provider [phone] Encounter Details Date Type Department Care Team (Late st Contact Info) Description 02/05/2023 Abstract [facility] [place] [facility] 112 [facility] [address] [place] [address] Josey Gonsalez MD 112 [place] [facility] 110 [place] [address] Social History Tobacco Use Types Packs/Day Years [...] EST Office Visit [facility] [place] [facility] 112 [facility] [address] [place] [address] Josey Gonsalez MD 112 [facility] 110 [place] [address] documented as of this encounter Visit Diagnoses Not on filedocumented in this encounter Care Teams Orthopedic Dentist Relationship Specialty Start Date End Date Josey Gonsalez MD 112 [place] [address] PCP - General Family Medicine 12/21/22 documented as of this encounter
--- OUTSIDE RECORDS SUMMARY | 2025-04-23 08:34 | XMS_ITS | Encounter Summary ---
Author Organization [facility] Address [address] [facility] [place] [address] Care Team Providers Care Flame Cutting Machine Operator Helper Name Role Phone Josey Gonsalez MD Primary Care Provider [phone] Encounter Details Date Type Department Care Team (Late st Contact Info) Description 01/11/2023 Abstract [facility] [place] [facility] Alan 112 [facility] [address] [place] [address] Josey Gonsalez MD 112 [place] [facility] 110 [place] [address] Social History Tobacco Use Types Packs/Day Years [...] EST Office Visit [facility] [place] [facility] 112 [facility] [address] [place] [address] Josey Gonsalez MD 112 [facility] 110 [place] [address] documented as of this encounter Visit Diagnoses Not on filedocumented in this encounter Care Teams Flame Cutting Machine Operator Helper Relationship Specialty Start Date End Date Josey Gonsalez MD 112 [place] [address] PCP - General Family Medicine 12/21/22 documented as of this encounter
--- OUTSIDE RECORDS SUMMARY | 2025-04-23 08:34 | XMS_ITS | Encounter Summary ---
Author Organization [facility] Address [address] [place] [address] Care Team Providers Care Bricklayer'S Assistant Name Role Phone Josey Gonsalez MD Primary Care Provider [phone] Encounter Details Date Type Department Care Team (Late st Contact Info) Description 02/14/2023 Abstract [facility] [place] [facility] Alan 112 [facility] [address] [place] [address] Josey Gonsalez MD 112 [place] [facility] [address] [place] [address] Social History Tobacco Use Types Packs/Day Years [...] Office Visit [facility] [place] 112 [facility] [address] [place] [address] Josey Gonsalez MD 112 [facility] 110 [place] [address] documented as of this encounter Visit Diagnoses Not on filedocumented in this encounter Care Teams Bricklayer'S Assistant Relationship Specialty Start Date End Date Josey Gonsalez MD 112 [place] [address] PCP - General Family Medicine 12/21/22 documented as of this encounter
--- OUTSIDE RECORDS SUMMARY | 2025-04-23 08:34 | XMS_ITS | Encounter Summary ---
Author Organization [facility] Address [address] [facility] [place] [address] Care Team Providers Care Rn Office Name Role Phone Josey Gonsalez MD Primary Care Provider [phone] Encounter Details Date Type Department Care Team (Late st Contact Info) Description 01/15/2023 Orders Only [facility] [place] Phillips [address] [facility] [address] [place] [phone] Josey Gonsalez MD [address] [place] [facility] 110 [place] [address] Social History Tobacco Use Types Packs/Day Years [...] EST Office Visit [facility] [place] Contreras 112 [facility] 110 [place] [address] Josey Gonsalez MD [address] [place] [facility] 110 [place] [address] documented as of this encounter Procedures Procedure [...] on filedocumented in this encounter Care Teams Rn Office Relationship Specialty Start Date End Date Josey Gonsalez MD 112 [place] [address] PCP - General Family Medicine 12/21/22 documented as of this encounter
--- OUTSIDE RECORDS SUMMARY | 2025-04-23 08:34 | XMS_ITS | Encounter Summary ---
Author Organization [facility] Address [address] [place] [address] Care Team Providers Care Landscape Gardener Name Role Phone Josey Gonsalez MD Primary Care Provider [phone] Encounter Details Date Type Department Care Team (Late st Contact Info) Description 10/20/2024 Abstract [facility] [place] [facility] [address] [facility] [address] [place] [phone] Josey Gonsalez MD 112 [facility] 110 [place] [address] Social History Tobacco Use Types Packs/Day Years [...] How often do you attend scientology or pentecostal serv ices? Patient declined 10/22/2023 Do you [...] place to sleep or slept in a [place] health care facility (including now)? No 10/22/2023 Comments Unknown Sex [...] Office Visit [facility] [place] Contreras 112 [facility] [facility] 110 [place] [address] Josey Gonsalez MD 112 [facility] 110 [place] [address] documented as of this encounter Visit Diagnoses Not on filedocumented in this encounter Care Teams Landscape Gardener Relationship Specialty Start Date End Date Josey Gonsalez MD 112 [facility] 110 [place] [address] PCP - General Family Medicine 12/21/22 documented as of this encounter
--- OUTSIDE RECORDS SUMMARY | 2025-04-23 08:34 | XMS_ITS | Encounter Summary ---
Author Organization [facility] Address [address] [facility] [place] [address] Care Team Providers Care Felt Cutting Machine Operator Name Role Phone Josey Gonsalez MD Primary Care Provider [phone] Encounter Details Date Type Department Care Team (Late st Contact Info) Description 01/25/2023 Abstract [facility] [place] Ram Alan 112 [facility] [address] [place] [address] Josey Gonsalez MD 112 [place] 110 [place] [address] Social History Tobacco Use Types Packs/Day Years [...] EST Office Visit [facility] [place] Phillips 112 [facility] [address] [place] [address] Josey Gonsalez MD 112 [facility] 110 [place] [address] documented as of this encounter Visit Diagnoses Not on filedocumented in this encounter Care Teams Felt Cutting Machine Operator Relationship Specialty Start Date End Date Josey Gonsalez MD 112 [place] [address] PCP - General Family Medicine 12/21/22 documented as of this encounter
--- OUTSIDE RECORDS SUMMARY | 2025-04-23 08:34 | XMS_ITS | Encounter Summary ---
Author Organization [facility] Address [address] [facility] [place] [address] Care Team Providers Care Pretzel Packer Name Role Phone Josey Gonsalez MD Primary Care Provider [phone] Encounter Details Date Type Department Care Team (Late st Contact Info) Description 02/21/2023 Abstract [facility] [place] Ram Alan 112 [facility] [address] [place] [address] Josey Gonsalez MD 112 [place] [facility] [address] [place] [address] Social History Tobacco Use Types Packs/Day Years [...] EST Office Visit [facility] [place] Phillipse 112 [facility] [address] [place] [address] Josey Gonsalez MD 112 [facility] 110 [place] [address] documented as of this encounter Visit Diagnoses Not on filedocumented in this encounter Care Teams Pretzel Packer Relationship Specialty Start Date End Date Josey Gonsalez MD 112 [place] [address] PCP - General Family Medicine 12/21/22 documented as of this encounter
--- OUTSIDE RECORDS SUMMARY | 2025-04-23 08:34 | XMS_ITS | Encounter Summary ---
Author Organization [facility] Address [address] [facility] [place] [address] Care Team Providers Care Correction Officer [place] [facility] Name Role Phone Josey Gonsalez MD Primary Care Provider [phone] Encounter Details Date Type Department Care Team (Late st Contact Info) Description 05/02/2023 Abstract [facility] [place] Ram Alan 112 [facility] [address] [place] [address] Josey Gonsalez MD 112 [place] [facility] 110 [place] [address] Social History Tobacco Use Types Packs/Day Years [...] EST Office Visit [facility] [place] Phillipse 112 [facility] [address] [place] [address] Josey Gonsalez MD 112 [facility] 110 [place] [address] documented as of this encounter Visit Diagnoses Not on filedocumented in this encounter Care Teams Correction Officer [place] [facility] Relationship Specialty Start Date End Date Josey Gonsalez MD 112 [place] [address] PCP - General Family Medicine 12/21/22 documented as of this encounter
--- OUTSIDE RECORDS SUMMARY | 2025-04-23 08:34 | XMS_ITS | Encounter Summary ---
Author Organization [facility] Address [address] [facility] [place] [address] Care Team Providers Care Fish Tender Name Role Phone Josey Gonsalez MD Primary Care Provider [phone] Encounter Details Date Type Department Care Team (Late st Contact Info) Description 01/29/2023 Abstract [facility] [place] Ram Alan 112 [facility] [address] [place] [address] Josey Gonsalez MD 112 [facility] 110 [place] [address] Social History Tobacco Use Types Packs/Day Years [...] EST Office Visit [facility] [place] Phillips 112 [facility] [address] [place] [address] Josey Gonsalez MD 112 [facility] 110 [place] [address] documented as of this encounter Visit Diagnoses Not on filedocumented in this encounter Care Teams Fish Tender Relationship Specialty Start Date End Date Josey Gonsalez MD 112 [place] [address] PCP - General Family Medicine 12/21/22 documented as of this encounter
--- OUTSIDE RECORDS SUMMARY | 2025-04-23 08:34 | XMS_ITS | Encounter Summary ---
Author Organization [facility] Address [address] [facility] [place] [address] Care Team Providers Care Co Founder And Director Name Role Phone Josey Gonsalez MD Primary Care Provider [phone] Encounter Details Date Type Department Care Team (Late st Contact Info) Description 02/01/2023 Abstract [facility] [place] Ram Alan [address] [facility] 110 [place] [phone] Madison Oconnell, BRITTANY 112 [place] [facility] 110 [place] [address] Social History Tobacco Use Types Packs/Day Years [...] Office Visit [facility] [place] Alan [address] [facility] 110 [place] [address] Josey Gonsalez MD 112 [place] [facility] 110 [place] [address] documented as of this encounter Visit Diagnoses Not on filedocumented in this encounter Care Teams Co Founder And Director Relationship Specialty Start Date End Date Josey Gonsalez MD 112 [place] [address] PCP - General Family Medicine 12/21/22 documented as of this encounter
--- OUTSIDE RECORDS SUMMARY | 2025-04-23 08:34 | XMS_ITS | Clinical Summary ---
Author Organization [facility] Address [address] [place] [address] Care Team Providers Care Supervisor Counseling And Guidance Name Role Phone Josey Youssef MD Primary Care Provider [phone] Allergies Active Allergy Reactions Criticality Noted Date Comments Hydromorphone Itching 03/04/2013 Other Reaction(s): Unknown Medications albuterol HFA 90 mcg/act inhaler 023 Active nystatin (Mycostatin) 132622 UNIT/ML suspension 023 Active traMADol (Ultram) 50 MG tabletIndicatio ns:Other chronic pain TAKE ONE TABLET BY MOUTH FOUR TIMES A DAY NEEDED 120 tablet 023 Active aspirin 81 MG EC tablet 1 (one) time each day at the same time. Active loratadine (Claritin) 10 MG tablet 1 (one) time each day at the same time. Active multivitamin-ir os-uoecyzgx-whf ic acid (Centrum Silver, geriatric,) tablet as [...] 8:43 AM EDT): Increase fluids, drinking electrolyte senior care (current) use of inhaled steroids 01/2023 Lung [...] Description 04/21/2025 Refill [facility] [place] Phillipse 112 [facility] [address] [place] [address] Josey Youssef MD [facility] 04/15/2025 Abstract [facility] [place] Phillipse [address] [facility] [address] [place] [address] Josey Youssef MD 04/07/2025 9:30 AM EDT Office Visit [facility] [place] Phillips [address] [facility] [address] [place] [address] Josey Youssef MD Spinal stenosis of lumbar region, unspecified whether neurogenic claudication present (Primary Dx); Type 2 diabetes mellitus with diabetic nephropathy, without long-term current use of insulin (HCC); Major depressive disorder, single episode, mild ; Essential hypertension 04/07/2025 Travel 03/15/20[facility] [address] [facility] [address] [place] [address] Josey Youssef MD Anxiety 02/16/2025 Refill [facility] [address] [facility] [address] [place] [address] Elysia Escobar MA Depressive disorder 02/01/2025 [facility] [address] [facility] [address] [place] [phone] Josey Youssef MD Tremors of nervous system [...] declined 10/22/2023 How often do you attend denominational or yazdanism serv ices? Patient declined 10/22/2023 Do you belong to any clubs o r organizations such as denominational groups, unions, fraternal or athletic groups, or [...] EST Office Visit [facility] [place] Contreras 112 [facility] 110 [place] [address] Josey Youssef MD 112 [facility] 110 [place] [address] Health Maintenance Due Date Last Done Comments [...] Organization Information Site ID: QPT Name: [facility] Address: [address] [place] [address], [address] [place] [id number] Director: Christiano Escobar MD Janel GOLDM[facility] URINE ORDERABLES Final Res ult [facility] * MM TOMOSYNTHESIS SCREENING BI (04/18/2024 12:10 PM EDT) Anatomical Region Laterality Modality Other 04/18/2024 12:1 0 PM EDT Narrative 04/18/2024 12:11 [place] [address] Mammography Report Signed Patient: DHARA DALLAS MR#: [id number] : 1970 Acct:[id number] Age/Sex: 53 / F ADM Date: 04/18/24 Loc: MAMMO Attending Dr: JOSEY YOUSSEF Ordering Physician: JOSEY YOUSSEF Results: Date of Service: 04/18/24 Follow Up: Procedure(s): MM tomosynthesis screening BI Accession Number(s): [id number] cc: JOSEY YOUSSEF Patient Name: DHARA DALLAS MR#: [id number] : 1970 Exam Date: 04/18/2024 Ordering Doctor: [...] lung cancer at age 78. LOCATION: [facility] BREAST COMPOSITION: There are scattered areas [...] Signed By: 04/18/24 1211 DD/ 1210 TD/TT: Sheet Metal Technician: Procedure Note Radiology, Radiologist, MD - 04/18/2024 [place] [address] Mammography Report Signed Patient: DHARA DALLAS AMR#: [id number] : 1970Acct:[id number] Age/Sex: 53 / FADM Date: 04/18/24 Loc: MAMMO Attending Dr: JOSEY YOUSSEF Ordering Physician: Taylor YOUSSEFults: Date of Service: 04/18/24Follow Up: Procedure(s): MM tomosynthesis screening BI Accession Number(s): [id number] cc: JOSEY YOUSSEF Patient Name: DHARA DALLAS MR#: [id number] : 1970 Exam Date: 04/18/2024 Ordering Doctor: [...] with lung cancer at age78. LOCATION: [facility] BREAST COMPOSITION: There are scattered areas [...] M.D. Signed By:04/18/24 1211 DD/ 1210 TD/TT: Sheet Metal Technician: Josey Youssef MD [facility] Final Result * Colonoscopy (12/03/2020 12:00 PM EDT) Anatomical Region Laterality Modality Endoscopy 12/03/2020 12:0 0 PM EDT Narrative 12/03/2020 12:00 PM EDT PERFORMED AT [facility] LOCATION:[id number] colonic polyp Procedure Note CONVERSION, GENERIC - 12/13/2022 PERFORMED AT [facility] LOCATION:[id number] colonic polyp Josey Youssef MD ENDOSCOPY PROCEDURE ORDERABLES F inal Result from Last 3 Months or Most Recently Relevant to Health Maintenance Additional Health Concerns Active Problems Noted Date Diagnosed Date Patient on antidepressant monitoring plan 2024 Baseline PHQ-9 04/07/2025 Insurance [employer] Care Teams Supervisor Counseling And Guidance Relationship Specialty Start Date End Date Josey Youssef MD [address] [place] [address] PCP - General Family Medicine 12/21/22
--- OUTSIDE RECORDS SUMMARY | 2025-04-23 08:34 | XMS_ITS | Encounter Summary ---
Author Organization [facility] Address [address] [facility] [place] [address] Care Team Providers Care Donor Services Coordinator Name Role Phone Josey Gonsalez MD Primary Care Provider [phone] Encounter Details Date Type Department Care Team (Late st Contact Info) Description 05/02/2023 Abstract [facility] [place] Ram Alan 112 [facility] [address] [place] [address] Josey Gonsalez MD 112 [place] [facility] 110 [place] [address] Social History Tobacco Use Types Packs/Day Years [...] EST Office Visit [facility] [place] Phillipse 112 [facility] [address] [place] [address] Josey Gonsalez MD 112 [facility] 110 [place] [address] documented as of this encounter Visit Diagnoses Not on filedocumented in this encounter Care Teams Donor Services Coordinator Relationship Specialty Start Date End Date Josey Gonsalez MD 112 [place] [address] PCP - General Family Medicine 12/21/22 documented as of this encounter
--- OUTSIDE RECORDS SUMMARY | 2025-04-23 08:34 | XMS_ITS | Encounter Summary ---
Author Organization [facility] Address [address] [place] [address] Care Team Providers Care Protection Consultant Name Role Phone Josey Gonsalez MD Primary Care Provider [phone] Encounter Details Date Type Department Care Team (Late st Contact Info) Description 01/17/2023 Orders Only [facility] [place] Ram Alan [address] [facility] 110 [place] [address] Jessy Butt, DO [address] [place] [address] Social History Tobacco Use Types Packs/Day Years [...] [place] Phillipse [address] [place] [address] [place] [address] Josey Gonsalez MD [address] [facility] 110 [place], [place] [address] documented as of this encounter Procedures Procedure Name Priority Date/Time Associated Diagnosis Comments ELECTROCARDIOGRAM REPORT Routine 023 1:16 PM EDT documented in this encounter Results * Electrocardiogram Report (01/11/2023 1:16 PM EDT) us Jessy Butt DO IN CLINIC/BEDSIDE ORDERABLES Edited Result - Final documented in this encounter Visit Diagnoses Not on filedocumented in this encounter Care Teams Protection Consultant Relationship Specialty Start Date End Date Josey Gonsalez MD 112 [facility] 110 [place] [address] PCP - General Family Medicine 12/21/22 documented as of this encounter
--- OUTSIDE RECORDS SUMMARY | 2025-04-23 08:34 | XMS_ITS | Encounter Summary ---
Author Organization [facility] Address [address] [facility] [place] [address] Care Team Providers Care Senior Hardware Design Engineer Name Role Phone Josey Gonsalez MD Primary Care Provider [phone] Encounter Details Date Type Department Care Team (Late st Contact Info) Description 02/21/2023 Abstract [facility] [place] Ram Alan 112 [facility] [address] [place] [address] Josey Gonsalez MD 112 [facility] 110 [place] [address] Social History Tobacco Use Types Packs/Day Years [...] EST Office Visit [facility] [place] Phillipse 112 [facility] [address] [place] [address] Josey Gonsalez MD 112 [facility] 110 [place] [address] documented as of this encounter Visit Diagnoses Not on filedocumented in this encounter Care Teams Senior Hardware Design Engineer Relationship Specialty Start Date End Date Josey Gonsalez MD 112 [place] [address] PCP - General Family Medicine 12/21/22 documented as of this encounter
--- OUTSIDE RECORDS SUMMARY | 2025-04-23 08:34 | XMS_ITS | Encounter Summary ---
Author Organization [facility] Address [address] [place] [address] Care Team Providers Care Agate Setter Name Role Phone Josey Gonsalez MD Primary Care Provider [phone] Reason for Visit * Reason Comments Med Refill Encounter Details Date Type Department Care Team (Late st Contact Info) Description 04/21/2025 Refill [facility] [place] [facility] [address] [place] [address] [place] [address] Josey Gonsalez MD [address] [place] 110 [place] [address] Dizziness Social History Tobacco Use Types Packs/Day [...] declined 10/22/2023 How often do you attend confucianism or orthodoxy serv ices? Patient declined 10/22/2023 Do you belong to any clubs o r organizations such as confucianism groups, unions, fraternal or athletic groups, or [...] AM EST Office Visit SAMREEN Contreras 112 [facility] 110 [place] [address] Josey Gonsalez MD 112 [facility] 110 [place] [address] documented as of this encounter Goals Goal [...] documented as of this encounter Care Teams Agate Setter Relationship Specialty Start Date End Date Josey Gonsalez MD 112 [facility] 110 [place] [address] PCP - General Family Medicine 12/21/22 documented as of this encounter
--- OUTSIDE RECORDS SUMMARY | 2025-04-23 08:34 | XMS_ITS | Encounter Summary ---
Author Organization [facility] Address [address] [facility] [place] [address] Care Team Providers Care Donor Relations Coordinator Name Role Phone Josey Gonsalez MD Primary Care Provider [phone] Encounter Details Date Type Department Care Team (Late st Contact Info) Description 01/17/2023 Abstract [facility] [place] Ram Alan 112 [facility] [address] [place] [address] Josey Gonsalez MD 112 [facility] 110 [place] [address] Social History Tobacco Use Types Packs/Day Years [...] EST Office Visit [facility] [place] Phillips 112 [facility] [address] [place] [address] Josey Gonsalez MD 112 [facility] 110 [place] [address] documented as of this encounter Visit Diagnoses Not on filedocumented in this encounter Care Teams Donor Relations Coordinator Relationship Specialty Start Date End Date Josey Gonsalez MD 112 [place] [address] PCP - General Family Medicine 12/21/22 documented as of this encounter
--- OUTSIDE RECORDS SUMMARY | 2025-04-23 08:34 | XMS_ITS | Encounter Summary ---
Author Organization [facility] Address [address] [facility] [place] [address] Care Team Providers Care Inspector Pawnshop Detail Name Role Phone Josey Gonsalez MD Primary Care Provider [phone] Encounter Details Date Type Department Care Team (Late st Contact Info) Description 04/09/2023 Abstract [facility] [place] Ram Alan 112 [facility] [address] [place] [address] Joesy Gonsalez MD 112 [place] [facility] 110 [place] [address] Social History Tobacco Use Types Packs/Day Years [...] 8:15 AM EST Office Visit [facility] [place] Phililpse 112 [facility] [address] [place] [address] Josey Gonsalez MD 112 [facility] 110 [place] [address] documented as of this encounter Visit Diagnoses Not on filedocumented in this encounter Care Teams Inspector Pawnshop Detail Relationship Specialty Start Date End Date Josey Gonsalez MD 112 [place] [address] PCP - General Family Medicine 12/21/22 documented as of this encounter
--- OUTSIDE RECORDS SUMMARY | 2025-04-23 08:34 | XMS_ITS | Encounter Summary ---
Author Organization [facility] Address [address] [facility] [place] [address] Care Team Providers Care Cable Supervisor Name Role Phone Josey Gonsalez MD Primary Care Provider [phone] Encounter Details Date Type Department Care Team (Late st Contact Info) Description 04/11/2023 Abstract [facility] [place] Ram Alan 112 [facility] [address] [place] [address] Josey Gonsalez MD 112 [place] [facility] 110 [place] [address] Social History Tobacco Use Types Packs/Day Years [...] 112 [facility] [address] [place] [address] Josey Gonsalez MD 112 [facility] 110 [place] [address] documented as of this encounter Visit Diagnoses Not on filedocumented in this encounter Care Teams Cable Supervisor Relationship Specialty Start Date End Date Josey Gonsalez MD 112 [place] [address] PCP - General Family Medicine 12/21/22 documented as of this encounter
--- OUTSIDE RECORDS SUMMARY | 2025-04-23 08:34 | XMS_ITS | Encounter Summary ---
Author Organization [facility] Address [address] [place] [address] Care Team Providers Care Automatic Glove Turner And Former Name Role Phone Josey Gonsalez MD Primary Care Provider Encounter Details Date Type Department Care Team (Late st Contact Info) Description 01/12/2023 [facility] [place] [facility] [address] [facility] [address] [place] [phone] Josey Gonsalez MD 112 [place] [facility] 110 [place] [address] Social History Tobacco Use Types Packs/Day Years [...] EST Office Visit [facility] [place] Phillips [address] [facility] 110 [place] [address] Josey Gonsalez MD 112 [place] [facility] 110 [place] [address] documented as of this encounter Procedures Procedure [...] on filedocumented in this encounter Care Teams Automatic Glove Turner And Former Relationship Specialty Start Date End Date Josey Gonsalez MD 112 [place] [address] PCP - General Family Medicine 12/21/22 documented as of this encounter
--- OUTSIDE RECORDS SUMMARY | 2025-04-23 08:34 | XMS_ITS | Encounter Summary ---
Author Organization [facility] Address [address] [facility] [place] [address] Care Team Providers Care Inserting Press Operator Name Role Phone Josey Gonsalez MD Primary Care Provider [phone] Encounter Details Date Type Department Care Team (Late st Contact Info) Description 01/05/2023 Abstract N[facility] [place] Castillonce [address] [facility] [address] [place] [phone] Josey Gonsalez MD [address] [facility] 110 [place] [address] Social History Tobacco Use Types Packs/Day Years [...] [facility] [place] Ram Medince [address] [facility] [address] [place] [address] Josey Gonsalez MD [address] [facility] 110 [place] [address] documented as of this encounter Visit Diagnoses Not on filedocumented in this encounter Care Teams Inserting Press Operator Relationship Specialty Start Date End Date Josey Gonsalez MD [address] [facility] 110 [place] [address] PCP - General Family Medicine 12/21/22 documented as of this encounter
--- OUTSIDE RECORDS SUMMARY | 2025-04-23 08:34 | XMS_ITS | Encounter Summary ---
Author Organization [facility] Address [address] [facility] [address] Care Team Providers Care Physical Science Aide Name Role Phone Josey Gonsalez MD Primary Care Provider [phone] Encounter Details Date Type Department Care Team (Late st Contact Info) Description 01/02/2023 Orders Only [facility] [place] Castillosawyer [address] [facility] 110 [place] [phone] Madison Oconnell NP [address] [place] [address] [place] [address] Social History Tobacco Use Types Packs/Day Years [...] Ram Medince [address] [place] [address] [place] [phone] Josey Gonsalez MD [address] [place] 110 [place] [address] documented as of this encounter Procedures Procedure Name Priority Date/Time Associated Diagnosis Comments SCANNED LABS Routine 12/27/2022 11:10 AM EDT XR CHEST 2 VIEWS Routine 12/27/2022 10:46 AM EDT documented in this encounter Results * SCANNED LABS (12/27/2022 11:10 AM EDT) us Madison Oconnell FIRE ALARM REPAIRER LAB CHG PERFORMABLES Final R esult * XR chest 2 views (12/27/2022 10:46 AM EDT) Anatomical Region Laterality Modality Chest Radiographic Lynn ging Madison Oconnell FIRE ALARM REPAIRER IMG XR PROCEDURES Final Resu lt documented in this encounter Visit Diagnoses Not on filedocumented in this encounter Care Teams Physical Science Aide Relationship Specialty Start Date End Date Josey Gonsalez MD 112 [place] [address] PCP - General Family Medicine 12/21/22 documented as of this encounter
--- OUTSIDE RECORDS SUMMARY | 2025-04-23 08:34 | XMS_ITS | Encounter Summary ---
Author Organization [facility] Address [address] [facility] [place] [address] Care Team Providers Care Yard Specialist Name Role Phone Josey Youssef MD Primary Care Provider [phone] Encounter Details Date Type Department Care Team [...] [facility] Her[facility] [address] [facility] 110 [place] [address] Josey Youssef MD 112 [facility] 110 [place] [address] documented as of this encounter Procedures Procedure Name Priority Date/Time Associated Diagnosis Comments CT CHEST WO CON 04/13/2023 10:20 AM EDT documented in this encounter Results * CT CHEST WO CON (04/13/2023 10:20 AM EDT) Anatomical Region Laterality Modality Other 04/13/2023 10:2 0 AM EDT Narrative 04/13/2023 10:20 AM EDT [address] [address] [address] Scan Report Signed Patient: DHARA DALLAS MR#: [id number] : 1970 Acct:[id number] Age/Sex: 52 / F ADM Date: 04/13/23 Loc: CT Attending Dr: Melisa Blanc D.O. Ordering Physician: Melisa Blanc D.O. Date of Service: 04/13/23 Procedure(s): CT chest wo con Accession Number(s): [id number] cc: JOSEY YOUSSEF [place] [id number] Patient Name: DHARA DALLAS MRN: [id number] date: 1970 Sex: F Assigned Patient Location: CT Current Patient Location: CT Accession/Order Number: [id number] Exam Date: 04/13/2023 08:05 Report Date: 04/13/2023 [...] atelectasis/scar is favored Electronically authenticated by: MELYSSA IPTTS Date: 04/13/2023 10:20 Dictated By: Melyssa Pitts M.D. Signed By: 04/13/23 1022 DD/ 1020 TD/TT: Tire Center Manager: Procedure Note Radiology, Radiologist, MD - 04/19/2023 [place] [address] CT Scan Report Signed Patient: DHARA DALLAS AMR#: [id number] : 1970Acct:[id number] Age/Sex: 52 / FADM Date: 04/13/23 Loc: CT Attending Dr: Melisa Blanc D.O. Ordering Physician: Melisa Blanc D.O. Date of Service: 04/13/23 Procedure(s): CT chest wo con Accession Number(s): [id number] cc: JOSEY YOUSSEF The [address] [address] Patient Name: DHARA DALLAS MRN: [id number] date: 1970 Sex: F Assigned Patient Location: CT Current Patient Location: CT Accession/Order Number: [id number] Exam Date: 04/13/2023 08:05 Report Date: 04/13/2023 [...] M.D. Signed By:04/13/23 1022 DD/ 1020 TD/TT: Tire Center Manager: Generic External Data Provider [facility] Final Result documented in this encounter Visit Diagnoses Not on filedocumented in this encounter Care Teams Yard Specialist Relationship Specialty Start Date End Date Josey Youssef MD [address] [place] [phone] PCP - General Family Medicine 12/21/22 documented as of this encounter
--- OUTSIDE RECORDS SUMMARY | 2025-04-23 08:34 | XMS_ITS | Encounter Summary ---
Author Organization [facility] Address [address] [place] [address] Care Team Providers Care Nascar Pit Crew Person Name Role Phone Josey Gonsalez MD Primary Care Provider [phone] Encounter Details Date Type Department Care Team (Late st Contact Info) Description 02/19/2023 Orders Only [facility] [place] Ram Alan [address] [facility] 110 [place] [address] A, Unknown Practice [address] [place] [phone] Social History Tobacco Use Types Packs/Day Years [...] Visit NOMS [place] [address] [facility] [address] [place] [address] Josey Gonsalez MD [address] [facility] 110 [place], [place] [phone] documented as of this encounter Procedures Procedure [...] on filedocumented in this encounter Care Teams Nascar Pit Crew Person Relationship Specialty Start Date End Date Josey Gonsalez MD [address] [place] [phone] PCP - General Family Medicine 12/21/22 documented as of this encounter
--- OUTSIDE RECORDS SUMMARY | 2025-04-23 08:35 | XMS_ITS | Encounter Summary ---
Author Organization [facility] Address [address] [facility] [place] [address] Care Team Providers Care Income Auditor Name Role Phone Josey Gonsalez MD Primary Care Provider [phone] Encounter Details Date Type Department Care Team (Late st Contact Info) Description 03/27/2023 Abstract [facility] [place] Ram Alan 112 [facility] 110 [place] [address] Josey Gonsalez MD 112 [place] [facility] 110 [place] [address] Social History Tobacco Use Types Packs/Day Years [...] EST Office Visit NOMS [place] Phillipse 112 [facility] [address] [place] [address] Josey Gonsalez MD 112 [facility] 110 [place] [address] documented as of this encounter Visit Diagnoses Not on filedocumented in this encounter Care Teams Income Auditor Relationship Specialty Start Date End Date Josey Gonsalez MD 112 [place] [address] PCP - General Family Medicine 12/21/22 documented as of this encounter
--- OUTSIDE RECORDS SUMMARY | 2025-04-23 08:35 | XMS_ITS | Encounter Summary ---
Author Organization [facility] Address [address] [place] [address] Care Team Providers Care Electronic Parts Designer Name Role Phone Josey Gonsalez MD Primary Care Provider [phone] Encounter Details Date Type Department Care Team (Late st Contact Info) Description 04/04/2023 Abstract [facility] [place] Ram Alan 112 [facility] 110 [place] [address] Josey Gonsalez MD [address] [place] [facility] 110 [place] [address] Social History Tobacco Use Types Packs/Day Years [...] EST Office Visit N[facility]S [place] Phillipse 112 [facility] [address] [place] [address] Josey Gonsalez MD 112 [facility] 110 [place] [address] documented as of this encounter Visit Diagnoses Not on filedocumented in this encounter Care Teams Electronic Parts Designer Relationship Specialty Start Date End Date Josey Gonsalez MD 112 [place] [address] PCP - General Family Medicine 12/21/22 documented as of this encounter
--- OUTSIDE RECORDS SUMMARY | 2025-04-23 08:35 | XMS_ITS | Encounter Summary ---
Author Organization [facility] Address [address] [facility] [place] [address] Care Team Providers Care Aircraft Mechanic Electrical And Radio Name Role Phone Josey Gonsalez MD Primary Care Provider [phone] Encounter Details Date Type Department Care Team (Late Contact Info) Description 05/08/2023 Abstract [facility] [place] Alan [address] [place] [address] [place] [address] Josey Gonsalez MD 112 [address] [place] [address] Social History Tobacco Use Types Packs/Day Years [...] EST Office Visit NOMS [place] Contreras 112 [facility] 110 [place] [phone] Josey Gonsalez MD 112 [facility] 110 [place], [place] [address] documented as of this encounter Visit Diagnoses Not on filedocumented in this encounter Care Teams Aircraft Mechanic Electrical And Radio Relationship Specialty Start Date End Date Josey Gonsalez MD [address] [address] PCP - General Family Medicine 12/21/22 documented as of this encounter
--- OUTSIDE RECORDS SUMMARY | 2025-04-23 08:35 | XMS_ITS | Encounter Summary ---
Author Organization [facility] Address [address] [place] [address] Care Team Providers Care Radiological Technologist Name Role Phone Josey Gonsalez MD Primary Care Provider [phone] Encounter Details Date Type Department Care Team (Late st Contact Info) Description 05/22/2023 Abstract [facility] [place] Ram Alan [address] [facility] 110 [place] [phone] Josey Gonsalez MD [address] [place] [facility] 110 [place] [address] Social History Tobacco Use Types Packs/Day Years [...] Office Visit NOMS [place] Contreras [address] [facility] 110 [place] [address] Josey Gonsalez MD [address] [facility] 110 [place] [address] documented as of this encounter Visit Diagnoses Not on filedocumented in this encounter Care Teams Radiological Technologist Relationship Specialty Start Date End Date Josey Gonsalez MD 112 [facility] 110 [place] [address] PCP - General Family Medicine 12/21/22 documented as of this encounter
--- OUTSIDE RECORDS SUMMARY | 2025-04-23 08:35 | XMS_ITS | Encounter Summary ---
Author Organization [facility] Address [address] [facility] [place] [address] Care Team Providers Care Subject Scientific Research Name Role Phone Josey Gonsalez MD Primary Care Provider [phone] Encounter Details Date Type Department Care Team (Late st Contact Info) Description 05/21/2023 Abstract [facility] [place] Ram Alan [address] [facility] [address] [place] [phone] Josey Gonsalez MD [address] [place] [facility] 110 [place] [address] Social History Tobacco Use Types Packs/Day Years [...] Office Visit NOMS [place] Contreras [address] [facility] 110 [place] [phone] Josey Gonsalez MD [address] [place] [facility] 110 [place] [address] documented as of this encounter Visit Diagnoses Not on filedocumented in this encounter Care Teams Subject Scientific Research Relationship Specialty Start Date End Date Josey Gonsalez MD 112 [facility] 110 [place] [address] PCP - General Family Medicine 12/21/22 documented as of this encounter
--- OUTSIDE RECORDS SUMMARY | 2025-04-23 08:35 | XMS_ITS | Encounter Summary ---
Author Organization [facility] Address [address] [place] [address] Care Team Providers Care Health Sciences Manager Name Role Phone Josey Gonsalez MD Primary Care Provider [phone] Encounter Details Date Type Department Care Team (Late st Contact Info) Description 10/25/2023 Abstract [facility] [place] Family Medince [address] [facility] 110 [place] [phone] Josey Gonsalez MD [address] [facility] 110 [place] [address] Social History Tobacco Use Types Packs/Day Years [...] declined 10/22/2023 How often do you attend quaker or orthodoxy serv ices? Patient declined 10/22/2023 Do you belong to any clubs o r organizations such as quaker groups, unions, fraternal or athletic groups, or [...] place to sleep or slept in a jail (including now)? No 10/22/2023 Comments Unknown Sex [...] AM EST Office Visit N[facility]S [place] [facility] [address] [place] [address] [place] [phone] Josey Gonsalez MD [address] [facility] 110 [place] [address] documented as of this encounter Visit Diagnoses Not on filedocumented in this encounter Care Teams Health Sciences Manager Relationship Specialty Start Date End Date Josey Gonsalez MD 112 [facility] 110 [place] [address] PCP - General Family Medicine 12/21/22 documented as of this encounter
--- OUTSIDE RECORDS SUMMARY | 2025-04-23 08:35 | XMS_ITS | Encounter Summary ---
Author Organization [facility] Address [address] [facility] [place] [address] Care Team Providers Care Maintenance Painter Apprentice Name Role Phone Josey Gonsalez MD Primary Care Provider [phone] Encounter Details Date Type Department Care Team (Late st Contact Info) Description 04/04/2023 Abstract [facility] [place] Ram Alan 112 [facility] 110 [place] [address] Josey Gonsalez MD [address] [place] [facility] 110 [place] [address] Social History Tobacco Use Types Packs/Day Years [...] EST Office Visit N[facility]S [place] Phillipse 112 [facility] [address] [place] [address] Josey Gonsalez MD 112 [facility] 110 [place] [address] documented as of this encounter Visit Diagnoses Not on filedocumented in this encounter Care Teams Maintenance Painter Apprentice Relationship Specialty Start Date End Date Josey Gonsalez MD 112 [place] [address] PCP - General Family Medicine 12/21/22 documented as of this encounter
--- OUTSIDE RECORDS SUMMARY | 2025-04-23 08:35 | XMS_ITS | Encounter Summary ---
Author Organization [facility] Address [address] [place] [address] Care Team Providers Care Cocoa Roaster Name Role Phone Josey Gonsalez MD Primary Care Provider [phone] Encounter Details Date Type Department Care Team (Late st Contact Info) Description 10/25/2023 Abstract [facility] [place] Family Medince [address] [facility] 110 [place] [phone] Josey Gonsalez MD [address] [facility] 110 [place] [address] Social History Tobacco Use Types Packs/Day Years [...] How often do you attend temple or amish serv ices? Patient declined 10/22/2023 [...] Visit NOMS [place] [facility] [address] [place] [address] [place] [phone] Josey Gonsalez MD 112 [facility] 110 [place] [address] documented as of this encounter Visit Diagnoses Not on filedocumented in this encounter Care Teams Cocoa Roaster Relationship Specialty Start Date End Date Josey Gonsalez MD 112 [facility] 110 [place] [address] PCP - General Family Medicine 12/21/22 documented as of this encounter
--- OUTSIDE RECORDS SUMMARY | 2025-04-23 08:35 | XMS_ITS | CCD ---
Author Organization [facility] Care Team Providers Care Checker/Stocker Name Role Phone WATTS ., DR AMELIA [...] Unavailable MikaelJosey dumont MD Primary Care Provider [phone] JANEL CROWDER Attending Unavailable JOSEY YOUSSEF Attending Unavailable JOSEY YOUSSEF Attending Unavailable JANEL CROWDER Attending Unavailable MARNIE OCONNELL Attending Unavailable JOSEY YOUSSEF Attending Unavailable Allergies Allergy Classification Reported Allergen(s) Allergy Type Date of Onset Reaction(s) Facility (1 source) HYDROmorphone Drug Allergy 03-04-2013 [facility] Repository (20 sources) HYDROmorphone Drug Allergy 03-04-2013 Itching [facility] Medications Current Medications Medication Drug Class(es) Dates Sig (Normalized) Sig (Original) [id number] 200 actuat albuterol 0.09 mg/actuat metered dose [...] 1 puff(s) by inhalation in the morning Bvuechzjonm-Lwpeszqfv-Uscwzo (Trelegy Ellipta) 100-62.5-25 MCG/ACT aerosol powder Indications: [...] montelukast (Singulair) 10 MG tablet 09/16/2023 Active akfcfecfnbcv-jdyx-wtfmnk ls-folic acid (Centrum Silver, geriatric,) tablet (20 sources) multivitamin-iro n-psychometric examiner als-folic acid (Centrum Silver, geriatric,) tablet as directed Orally Active nystatin 127561 unt/ml oral suspension (20 sources) Polyene Antifungal Start: 09-07-2022 nystatin (Mycostatin) 347303 UNIT/ML suspension 09/07/2022 Active ofloxacin 3 mg/ml [...] complication, without long-term current use of insulin ([facility]) Inject 1 mg under the skin [...] 12-26-2022 Episodic Other aftercare (1 source) Other fpc (current) drug therapy; Translations: [OTH SNF CURRENT DRUG THERAPY] Onset: 05-17-2022 Episodic Other aftercare (20 sources) Long-term current use of inhaled steroid; Translations: [[facility]DC (current) use of inhaled steroids] Onset: 04-05-2023 [...] 04-07-2025 HbA1c (Bld) [Mass fraction] 5.5 % [facility] No Panel Informationon 04-07 Interpretation and review of laboratory results Normal [facility] ALBUMIN, RANDOM URINE W/CREA TININEon 09-12-2024 ALBUMIN, URINE 0.4 mg/dL Normal See Note: [facility] Comment on above: Result Comment: Refe rence Range: Reference Range Not established Performed By: #### 6 517 #### [facility] [address], [address] [place] [address] Senior Loan Officer: Christiano Escobar MD ALBUMIN/CREATININE RATIO, RANDOM URINE [...] By: #### 6 517 #### [facility] [address], [address] [place] [address] Senior Loan Officer: Christiano Escobar MD Creatinine (U) [Mass/Vol] 47 mg/dL Normal 20-275 [facility] Comment on above: Performed By: #### 6 517 #### [facility] [address], [address] [place] [address] Senior Loan Officer: Christiano Escobar MD Microalbumin/Creatinine rati o panel (U)on 09-12-2024 Albumin DL <= 20 mg/L (U) [Mass/Vol] 0.4 mg/dL See Note: [facility] are Comment on above: Reference Range: Reference Range Not established Albumin/Creatinine (U) [Mass ratio] 9 NINF [facility] [employer] Comment on above: The ADA defines abnormalities [...] [Mass/Vol] 47 mg/dL 20 - 275 mg/dL [facility] Performing Organization Information Site ID: QPT Name: [facility] Address: [address] [place] [address], [address] [place] [id number] Director: Christiano Escobar MD [facility] - Hematology and Cell countson 04-14-2024 HbA1c (Bld) [Mass fraction] 5.7 % [facility] No Panel Informationon 04-14 Interpretation and review of laboratory results Normal [facility] [employer] [facility] CREATININEon 12-27-2022 Creatinine [Mass/Vol] 1.03 mg/dL Critically high 0.55-1.02 [facility] Comment on above: Performed By: #### C FLAKITO #### [facility] [address] [address] [address] Radha Galindo EGFR-AF SOMALI >60 Normal >=60 [facility] Comment on above: Performed By: #### C FLAKITO #### [facility] [address] [address] [address] Radha Galindo EGFR-NON AF SOMALI 56 mL/min/1.73m2 Critically low >=60 [facility] Comment on above: Performed By: #### C FLAKITO #### [facility] [address] [address] [address] Radha Galindo XR CHEST 2 Von [...] AURORA HERNANDEZ Date: 2022-12-27 11:35 Normal [facility] MRI LSPINE WO CONon 12-16-19 23 MRI LSMARGARET WO CON EXAMINATION: MRI LSSHAHRZAD WO CON [...] BRANDON CRUZ Date: 2022-12-15 12:14 Normal [facility] RESPIRATORY PANEL PLUSon Adenovirus Not detected Normal NOT DETECTED [facility] Comment on above: Performed By: #### R SPLUS ####[facility] [address] [address]Dr. Radha Galindo B. Parapertusis Not detected Normal NOT DETECTED [facility] Comment on above: Performed By: #### R SPLUS ####[facility] [address] [address]Dr. Radha Galindo B. Pertussis Not detected Normal NOT DETECTED [facility] Comment on above: Performed By: #### R SPLUS ####[facility] [address] [address]Dr. Radha Galindo Chlamydia Pneumoniae Not detected Normal NOT DETECTED [facility] Comment on above: Performed By: #### R SPLUS ####[facility] [address] [place], [place] [address]Dr. Radha Galindo Coronavirus 229E Not detected Normal NOT DETECTED [facility] Comment on above: Performed By: #### R SPLUS ####[facility] [address] [place], [place] [address]Dr. ricky Galindo Coronavirus HKU1 Not detected Normal NOT DETECTED [facility] Comment on above: Performed By: #### R SPLUS ####[facility] [address] [place], [place] [address]Dr. Radha Galindo Coronavirus NL63 Not detected Normal NOT DETECTED [facility] Comment on above: Performed By: #### R SPLUS ####[facility] [address] [place], [place] [address]Dr. Radha Galindo Coronavirus OC43 Not detected Normal NOT DETECTED [facility] Comment on above: Performed By: #### R SPLUS ####[facility] [address] [place], [place] [address]Dr. Radha Galindo Influenza A H1 Not detected Normal NOT DETECTED [facility] Comment on above: Performed By: #### R SPLUS ####[facility] [address] [place], [place] [address]Dr. Radha Galindo Influenza A H1 2009 Not detected Normal NOT DETECTED [facility] Comment on above: Performed By: #### R SPLUS ####[facility] [address] [place], [place] [address]Dr. Radha Galindo Influenza A H3 Not detected Normal NOT DETECTED [facility] Comment on above: Performed By: #### R SPLUS ####[facility] [address] [address]Dr. Radha Galindo Influenza B Not detected Normal NOT DETECTED [facility] Comment on above: Performed By: #### R SPLUS ####[facility] [address] [address]Dr. Radha Galindo Metapneumovirus Not detected Normal NOT DETECTED [facility] Comment on above: Performed By: #### R SPLUS ####[facility] [address] [place], [place] [address]Dr. Radha Galindo Mycoplas. Pneumoniae Not detected Normal NOT DETECTED [facility] Comment on above: Performed By: #### R SPLUS ####[facility] [address] [place], [place] [address]Dr. Radha Galindo Parainfluenza 1 Not detected Normal NOT DETECTED [facility] Comment on above: Performed By: #### R SPLUS ####[facility] [address] [place], [place] [address]Dr. Radha Galindo Parainfluenza 2 Not detected Normal NOT DETECTED [facility] Comment on above: Performed By: #### R SPLUS ####[facility] [address] [place], [place] [address]Dr. Radha Galindo Parainfluenza 3 Not detected Normal NOT DETECTED [facility] Comment on above: Performed By: #### R SPLUS ####[facility] Ezbb[address]uteaj[address] [place], [place] [address]Dr. Radha Galindo Parainfluenza 4 Not detected Normal NOT DETECTED [facility] Comment on above: Performed By: #### R SPLUS ####[facility] [address] [place], [place] [address]Dr. Radha Galindo Rhino/Enterovirus Not detected Normal NOT DETECTED [facility] Comment on above: Performed By: #### R SPLUS ####[facility] [address] [address]Dr. Radha Galindo RP2 Header 1 RESPIRATORY PANEL: VIRUSES Normal [facility] Comment on above: Performed By: #### R SPLUS ####[facility] [address] [address]Dr. Radha Galindo RP2 Header 2 RESPIRATORY PANEL: BACTERIA Normal [facility] Comment on above: Performed By: #### R SPLUS ####[facility] [address] [address]Dr. Radha Galindo RSV Not detected Normal NOT DETECTED [facility] Comment on above: Performed By: #### R SPLUS ####[facility] [address] [place], [place] [address]Dr. Radha Galindo SARS-CoV-2 (COVID-19) RNA SUSAN+probe Ql (Unsp spec) Not detected Normal NOT DETECTED [facility] Comment on above: Performed By: #### R SPLUS ####[facility] [address] [place], [place] [address]Dr. Radha Galindo XR CHEST 2 Von 09-07-2022 [...] BRANDON CRUZ Date: 2022-09-07 12:18 Normal [facility] CBC AUTO DIFFon 05-16-2022 BASO # 0.1 103/ul Normal 0.0-0.1 [facility] Comment on above: Performed By: #### C BC ####[facility] [address] [address]Dr. Radha Galindo Basophils/100 WBC (Bld) 0.6 % Normal 0.2-2.0 [facility] Comment on above: Performed By: #### C BC ####[facility] [address] [address]Dr. Radha Galindo EO # 0.2 103/ul Normal 0.0-0.7 [facility] Comment on above: Performed By: #### C BC ####[facility] [address] [address]Dr. Radha Galindo Eosinophils/100 WBC (Bld) 1.3 % Normal 0.9-7.0 [facility] Comment on above: Performed By: #### C BC ####[facility] [address] [place], [place] [address]Dr. Radha Galindo Erythrocyte distribution width (RBC) [Ratio] 14.6 % Normal 11.0-15.0 [facility] Comment on above: Performed By: #### C BC ####[facility] [address] [place], [place] [address]Dr. Radha Galindo Hematocrit (Bld) [Volume fraction] 45.1 % Normal 36.0-48.0 [facility] Comment on above: Performed By: #### C BC ####[facility] [address] [place], [place] [address]Dr. Radha Galindo Hemoglobin (Bld) [Mass/Vol] 14.9 g/dL Normal 12.0-16.0 [facility] Comment on above: Performed By: #### C BC ####[facility] [address] [place], [place] [address]Dr. Radha Galindo IG # 0.06 10e3/ul Critically high 0.00-0.03 [facility] Comment on above: Performed By: #### C BC ####[facility] [address] [place], [place] [address]Dr. Radha Galindo IG % 0.4 % Normal 0.0-0.5 [facility] Comment on above: Performed By: #### C BC ####[facility] Dislxccbyx[address] [place], [place] [address]Dr. Radha Galindo LYMPH # 3.7 103/ul Normal 1.2-3.8 [facility] Comment on above: Performed By: #### C BC ####[facility] [address] [address]Dr. Judyricky Galindo Lymphocytes/100 WBC (Bld) 27.7 % Normal 20.5-60.0 [facility] Comment on above: Performed By: #### C BC ####[facility] [address] [address]Dr. Radha Galindo MANUAL DIFF REQ NO Normal [facility] Comment on above: Performed By: #### C BC ####[facility] [address] [address]Dr. Radha Galindo MCH (RBC) [Entitic mass] 31.6 pg Normal 26.7-34.0 [facility] Comment on above: Performed By: #### C BC ####[facility] [address] [place], [place] [address]Dr. Radha Galindo MCHC (RBC) [Mass/Vol] 33.0 g/dL Normal 29.9-35.2 [facility] Comment on above: Performed By: #### C BC ####[facility] [address] [address]Dr. Radha Galindo MCV (RBC) [Entitic vol] 95.6 fL Normal 81.0-99.0 [facility] Comment on above: Performed By: #### C BC ####[facility] [address] [place], [place] [address]Dr. Radha Galindo MONO # 0.7 103/ul Normal 0.3-0.8 [facility] Comment on above: Performed By: #### C BC ####[facility] [address] [address]Dr. Radha Galindo Monocytes/100 WBC (Bld) 5.3 % Normal 1.7-12.0 [facility] Comment on above: Performed By: #### C BC ####[facility] [address] [address]Dr. Radha Galindo NEUT # 8.8 103/ul Critically high 1.4-6.5 [facility] Comment on above: Performed By: #### C BC ####[facility] [address] [address]Dr. Radha Galindo Neutrophils/100 WBC (Bld) 64.7 % Normal 43.0-75.0 [facility] Comment on above: Performed By: #### C BC ####[facility] [address] [address]Dr. Radha Galindo Platelet mean volume (Bld) [Entitic vol] 9.1 fL Critically low 9.5-13.5 [facility] Comment on above: Performed By: #### C BC ####[facility] [address] [address]Dr. Radha Galindo PLT 318 103/ul Normal 150-450 [facility] Comment on above: Performed By: #### C BC ####[facility] [address] [address]Dr. Radha Galindo RBC 4.72 106/ul Normal 4.20-5.40 [facility] Comment on above: Performed By: #### C BC ####[facility] [address] [address]Dr. Radha Galindo WBC 13.5 103/ul Critically high 4.0-11.0 [facility] Comment on above: Performed By: #### C BC ####[facility] [address] [address]Dr. Radha Galindo CRPon 05-16-2022 CRP 0.3 mg/dL Normal <=1.0 [facility] Comment on above: Performed By: #### B MP, CRP #### [facility] [address] [address] [address] Radha Galindo PROF CHEM 8 (BAS METB)on Anion gap [Moles/Vol] 13.7 mmol/L Normal [facility] Comment on above: Performed By: #### B MP, CRP #### [facility] [address] [address] [address] Radha Galindo Calcium [Mass/Vol] 9.5 mg/dL Normal 8.5-10.1 [facility] Comment on above: Performed By: #### B MP, CRP #### [facility] [address] [address] [address] Radha Galindo Chloride [Moles/Vol] 104 mmol/L Normal 98-107 [facility] Comment on above: Performed By: #### B MP, CRP #### [facility] [address] [address] [address] Radha Galindo CO2 [Moles/Vol] 27.0 mmol/L Normal 21.0-32.0 [facility] Comment on above: Performed By: #### B MP, CRP #### [facility] [address] [address] [address] Radha Galindo Creatinine [Mass/Vol] 1.01 mg/dL Normal 0.55-1.02 [facility] Comment on above: Performed By: #### B MP, CRP #### [facility] [address] [address] [address] Radha Galindo EGFR-AF SOMALI >60 Normal >=60 [facility] Comment on above: Performed By: #### B MP, CRP #### [facility] [address] [address] [address] Radha Galindo EGFR-NON AF SOMALI 58 mL/min/1.73m2 Critically low >=60 [facility] Comment on above: Performed By: #### B MP, CRP #### [facility] [address] [address] [address] Radha Galindo Glucose [Mass/Vol] 137 mg/dL Critically high 74-106 [facility] Comment on above: Performed By: #### B MP, CRP #### [facility] [address] [address] [address] Radha Galindo Potassium [Moles/Vol] 3.7 mmol/L Normal 3.5-5.1 [facility] Comment on above: Performed By: #### B MP, CRP #### [facility] [address] [address] [address] Radha Galindo Sodium [Moles/Vol] 141 mmol/L Normal 136-145 [facility] Comment on above: Performed By: #### B MP, CRP #### [facility] [address] [address] [address] Radha Galindo Urea nitrogen [Mass/Vol] 11.0 mg/dL Normal 7.0-18.0 [facility] Comment on above: Performed By: #### B MP, CRP #### [facility] [address] [address] [address] Radha Galindo Urea nitrogen/Creatinine [Mass ratio] 10.9 mg/mg Normal [facility] Comment on above: Performed By: #### B MP, CRP #### [facility] [address] [address] [address] Radha Galindo SED RATE Located within [facility] 2021 SED RATE 18 mm/hr Normal <=30 [facility] Comment on above: Performed By: #### S EDR ####[facility] [address] [address]Dr. Radha Galindo [facility]on SARS-CoV-2 (COVID-19) RNA SUSAN+probe Ql (Unsp spec) Not detected Normal NOT DETECTED [facility] Comment on above: Result Comment: This test is not yet approved or cleared by the [place] FDA. When there are no FDA-approved or cleared tests available, and other criteria are met, FDA can make tests available under an emergency access mechanism called an Emergency Use Authorization (EUA). The EUA for this test is supported by the [place] of Health and Human Service's (HHS's) declaration [...] SARS-CoV-2. Performed By: #### C VDTBH #### [facility] [address] [place], [place] [address] Dr. Radha Galindo Covid-19 PCR ([facility])on 01-28 SARS-CoV-2 (COVID-19) RNA SUSAN+probe Ql (Unsp spec) Not detected Normal NOT DETECTED [facility] Comment on above: Result Comment: This test is not yet approved or cleared by the [place] FDA. When there are no FDA-approved or cleared tests available, and other criteria are met, FDA can make tests available under an emergency access mechanism called an Emergency Use Authorization (EUA). The EUA for this test is supported by the [place] of Health and Human Service's (HHS's) declaration [...] SARS-CoV-2. Performed By: #### C VDTB #### [facility] [address] [place] [address] Radha Galindo Microalbumin (with Creat)on 12-12-2021 mALB <1.2 Low [facility] Specialist Comment on above: Result Comment: Unab le to calculate mALB/Crea ratio, mALB is <1.2 mg/dL mALB reference range not established. Performed By: #### m ALBC #### [facility] [address], [place] [id number] UCREA 60 mg/dL Normal 28-217 [facility] Comment on above: Performed By: #### m ALBC #### [facility] [address] [place], [place] [id number] Complete Blood Count with Au to Diffon 11-28-2021 Basophils (Bld) [#/Vol] 0.07 10*3/uL Normal 0.00-0.20 [facility] Comment on above: Performed By: #### C MP, CBCAD, VITD, LIPD #### [facility] [address] [place], [place] [id number] Basophils/100 WBC (Bld) 0.6 % Normal [facility] Comment on above: Performed By: #### C MP, CBCAD, VITD, LIPD #### [facility] [address] [place], [place] [id number] Eosinophils (Bld) [#/Vol] 0.17 10*3/uL Normal 0.02-0.50 [facility] Comment on above: Performed By: #### C MP, CBCAD, VITD, LIPD #### [facility] [address] [place], [place] [id number] Eosinophils/100 WBC (Bld) 1.4 % Normal [facility] Comment on above: Performed By: #### C MP, CBCAD, VITD, LIPD #### [facility] [address] [place], [place] [id number] Erythrocyte distribution width (RBC) [Ratio] 14.1 % Normal 11.0-15.0 [facility] Comment on above: Performed By: #### C MP, CBCAD, VITD, LIPD #### [facility] [address] [place], [place] [id number] Hematocrit (Bld) [Volume fraction] 46.1 % Normal 35.0-47.0 [facility] Director Of Cardiology Comment on above: Performed By: #### C MP, CBCAD, VITD, LIPD #### [facility] [address] [place], [place] [id number] Hemoglobin (Bld) [Mass/Vol] 15.6 g/dL High 11.6-15.5 [facility] Comment on above: Performed By: #### C MP, CBCAD, VITD, LIPD #### [facility] [address] [place], [place] [id number] Lymphocytes (Bld) [#/Vol] 3.0 10*3/uL Normal 0.9-3.9 [facility] Comment on above: Performed By: #### C MP, CBCAD, VITD, LIPD #### [facility] [address] [place], [place] [id number] Lymphocytes/100 WBC (Bld) 25.9 % Normal [facility] Comment on above: Performed By: #### C MP, CBCAD, VITD, LIPD #### [facility] [address] [place], [place] [id number] MCH (RBC) [Entitic mass] 31.0 pg Normal 27.0-33.0 [facility] Comment on above: Performed By: #### C MP, CBCAD, VITD, LIPD #### [facility] [address] [place], [place] [id number] MCHC (RBC) [Mass/Vol] 33.8 g/dL Normal 32.0-36.0 [facility] Comment on above: Performed By: #### C MP, CBCAD, VITD, LIPD #### [facility] [address] [place], [place] [id number] MCV (RBC) [Entitic vol] 92 fL Normal 80-100 [facility] Comment on above: Performed By: #### C MP, CBCAD, VITD, LIPD #### [facility] [address] [place], [place] [id number] Monocytes (Bld) [#/Vol] 0.8 10*3/uL Normal 0.2-0.9 [facility] Comment on above: Performed By: #### C MP, CBCAD, VITD, LIPD #### [facility] [address] [place], [place] [id number] Monocytes/100 WBC (Bld) 6.8 % Normal [facility] Comment on above: Performed By: #### C MP, CBCAD, VITD, LIPD #### [facility] [address] [place], [place] [id number] Neutrophils (Bld) [#/Vol] 7.6 10*3/uL Normal 1.5-7.8 [facility] Comment on above: Performed By: #### C MP, CBCAD, VITD, LIPD #### [facility] [address] [place], [place] [id number] Neutrophils/100 WBC (Bld) 64.4 % Normal [facility] Comment on above: Performed By: #### C MP, CBCAD, VITD, LIPD #### [facility] [address] [place], [place] [id number] Platelet mean volume (Bld) [Entitic vol] 9.50 fL Normal 7.50-12.50 [facility] Comment on above: Performed By: #### C MP, CBCAD, VITD, LIPD #### [facility] [address] [place], [place] [id number] Platelets (Bld) [#/Vol] 304 10*3/uL Normal 140-400 [facility] Comment on above: Performed By: #### C MP, CBCAD, VITD, LIPD #### [facility] [address] [place], [place] [id number] RBC (Bld) [#/Vol] 5.03 10*6/uL Normal 3.90-5.20 [facility] Comment on above: Performed By: #### C MP, CBCAD, VITD, LIPD #### [facility] [address] [place], [place] [id number] RDW-SD 47.6 fL Normal 37.0-50.0 [facility] Comment on above: Performed By: #### C MP, CBCAD, VITD, LIPD #### [facility] [address] [place], [place] [id number] WBC (Bld) [#/Vol] 11.8 10*3/uL High 3.8-11.0 [facility] Comment on above: Performed By: #### C MP, CBCAD, VITD, LIPD #### [facility] [address] [place], [place] [id number] Comprehensive Metabolic Pane aditya 11-28-2021 Albumin [Mass/Vol] 4.9 g/dL Normal 3.6-5.1 [facility] Comment on above: Performed By: #### C MP, CBCAD, VITD, LIPD #### [facility] [address] [place], [place] [id number] Albumin/Globulin [Mass ratio] 2.3 {ratio} Normal 1.0-2.5 [facility] Specialist Comment on above: Performed By: #### C MP, CBCAD, VITD, LIPD #### [facility] [address], [place] [id number] ALP [Catalytic activity/Vol] 82 U/L Normal 35-119 [facility] Specialist Comment on above: Performed By: #### C MP, CBCAD, VITD, LIPD #### [facility] [address], [place] [id number] ALT [Catalytic activity/Vol] 44 U/L High 6-33 [facility] Comment on above: Result Comment: 06/29 Female reference range changed. Performed By: #### C MP, CBCAD, VITD, LIPD #### [facility] [address], [place] [id number] Anion gap [Moles/Vol] 17 mmol/L Normal 12-20 [facility] Specialist Comment on above: Result Comment: Effe ctive 08/04/2019 reference range changed. Performed By: #### C MP, CBCAD, VITD, LIPD #### [facility] [address], [place] [id number] AST [Catalytic activity/Vol] 27 U/L Normal 9-34 [facility] Specialist Comment on above: Performed By: #### C MP, CBCAD, VITD, LIPD #### [facility] [address], [place] [id number] Bilirubin [Mass/Vol] 0.97 mg/dL Normal 0.30-1.20 [facility] Comment on above: Performed By: #### C MP, CBCAD, VITD, LIPD #### [facility] [address], [place] [id number] BUN/CREA 14 Ratio Normal 6-22 [facility] Specialist Comment on above: Performed By: #### C MP, CBCAD, VITD, LIPD #### [facility] [address], [place] [id number] Calcium [Mass/Vol] 10.3 mg/dL High 8.6-10.2 [facility] Comment on above: Performed By: #### C MP, CBCAD, VITD, LIPD #### [facility] [address], [place] [id number] Chloride [Moles/Vol] 101 mmol/L Normal 98-107 [facility] Comment on above: Performed By: #### C MP, CBCAD, VITD, LIPD #### [facility] [address], [place] [id number] CO2 [Moles/Vol] 25 mmol/L Normal 20-31 [facility] Comment on above: Performed By: #### C MP, CBCAD, VITD, LIPD #### [facility] [address], [place] [id number] Creatinine [Mass/Vol] 1.0 mg/dL Normal 0.6-1.4 [facility] Comment on above: Performed By: #### C MP, CBCAD, VITD, LIPD #### [facility] [address], [place] [id number] eGFRAA 75 mL/min/1.73m2 Normal >60 [facility] Specialist Comment on above: Performed By: #### C MP, CBCAD, VITD, LIPD #### [facility] [address], [place] [id number] eGFRNAA 62 mL/min/1.73m2 Normal >60 [facility] Specialist Comment on above: Performed By: #### C MP, CBCAD, VITD, LIPD #### [facility] [address], [place] [id number] Globulin (S) [Mass/Vol] 2.1 g/dL Normal 1.9-3.7 [facility] Comment on above: Performed By: #### C MP, CBCAD, VITD, LIPD #### [facility] [address], [place] [id number] Glucose [Mass/Vol] 120 mg/dL High 65-99 [facility] Comment on above: Result Comment: For FASTING Glucose --- ADA reference ranges: Normal 65-99 mg/dl Prediabetes 100-125 Diabetes >/= 126 Performed By: #### C MP, CBCAD, VITD, LIPD #### [facility] [address], [place] [id number] Potassium [Moles/Vol] 4.4 mmol/L Normal 3.5-5.5 [facility] Director Of Cardiology Comment on above: Performed By: #### C MP, CBCAD, VITD, LIPD #### [facility] [address], [place] [id number] Protein [Mass/Vol] 7.0 g/dL Normal 6.1-8.1 [facility] Director Of Cardiology Comment on above: Performed By: #### C MP, CBCAD, VITD, LIPD #### [facility] [address], [place] [id number] Sodium [Moles/Vol] 139 mmol/L Normal 135-146 [facility] Director Of Cardiology Comment on above: Performed By: #### C MP, CBCAD, VITD, LIPD #### [facility] [address], [place] [id number] Urea nitrogen [Mass/Vol] 13 mg/dL Normal 7-25 [facility] Director Of Cardiology Comment on above: Performed By: #### C MP, CBCAD, VITD, LIPD #### [facility] [address], [place] [id number] Hemoglobin A1Con 11-28-2021 EAG 131.24 Normal [facility] Director Of Cardiology Comment on above: Performed By: #### A 1C #### [facility] [address], [place] [id number] HbA1c (Bld) [Mass fraction] 6.2 % High 4.0-6.0 [facility] Director Of Cardiology Comment on above: Performed By: #### A 1C #### [facility] [address], [place] [id number] Lipid Panelon 11-28-2021 Cholesterol [Mass/Vol] 243 mg/dL High 125-200 [facility] Director Of Cardiology Comment on above: Result Comment: Low risk < 200mg/dL Borderline risk 201-239 mg/dl High risk > or equal to 240 Performed By: #### C MP, CBCAD, VITD, LIPD #### [facility] [address], [place] [id number] Cholesterol in HDL [Mass/Vol] 58 mg/dL Normal >40 [facility] Director Of Cardiology Comment on above: Result Comment: High Cardiovascular Risk HDL <40 mg/dL Low Cardiovascular Risk HDL > or equal to 60 mg/dl Performed By: #### C MP, CBCAD, VITD, LIPD #### [facility] [address], [place] [id number] Cholesterol in LDL [Mass/Vol] 154 mg/dL Normal [facility] Director Of Cardiology Comment on above: Result Comment: LDL ATP III CLASSIFICATION LDL less than 100 mg/dl Optimal LDL 100-129 mg/dl Near or above optimal LDL 130-159 Borderline high LDL 160-189 High LDL greater than 189 mg/dl Very High Performed By: #### C MP, CBCAD, VITD, LIPD #### [facility] [address], [place] [id number] Cholesterol in VLDL [Mass/Vol] 31 mg/dL Normal [facility] Director Of Cardiology Comment on above: Performed By: #### C MP, CBCAD, VITD, LIPD #### [facility] [address], [place] [id number] Cholesterol.total/Ch olesterol in HDL [Mass ratio] 4 {ratio} Normal [facility] Director Of Cardiology Comment on above: Performed By: #### C MP, CBCAD, VITD, LIPD #### [facility] [address], [place] [id number] Triglyceride [Mass/Vol] 154 mg/dL High 30-150 [facility] Director Of Cardiology Comment on above: Result Comment: TRIG ATPIII CLASSIFICATIONS TRIG less than 150 mg/dl Normal TRIG 150-199 mg/dl Borderline High TRIG 200-500 mg/dl High TRIG greather than 500 mg/dl Very High Performed By: #### C MP, CBCAD, VITD, LIPD #### [facility] [address], [place] [id number] Vitamin D 25-OHon 11-28-2021 VIT D 25 OH 73 ng/ml Normal >29 [facility] Director Of Cardiology Comment on above: Result Comment: Janneth min D Status Deficiency <20 ng/mL Insufficiency 20-29 ng/mL Optimal 30-100 ng/mL Possible Toxicity >=150 ng/mL Performed By: #### C MP, CBCAD, VITD, LIPD #### [facility] [address] [facility] [place] [id number] [facility] DH[facility] [place]ALLAS ([id number]) 1970 F Date Time Provider Department 03/08/21 CHRIS OLIVA ORQ During your visit today, we recorded the following information about you: Glenna Solomonley [facility] 03/08/2021 4:45 PM Signed Patient called requesting a refill for Diclofenac Sod ER 100 mg tab. To send to [facility] at [phone] fax [phone] Glenna Ahuja [facility] 03/17/2021 1:01 PM Signed Spoke to patient, she stated that got theOral Voltaren Oral Voltaren from her family doctor. Also she states that she is back at work and will make an appointment soon with the capital markets specialist. Allergies As of Date: 03/08/2021 Noted Allergy Reaction HYDROMORPHONE 03/04/2013 9 - Itching Date Reviewed: 12/22/2020 Reviewed by: Kirsten Vilchis - Fully Assessed Reason for Visit: Medication Question [2538] Prescriptions as of 03/17/2021 - DULoxetine (CYMBALTA) [...] Encounter Status:Closed by [facility] ([id number]) 1970 F Date Time Provider Department 03/08/21 [...] Encounter Status:Closed by GLENNA QUINN on 03/08/21 [facility] CNOVon 12-22-2020 CNOV Office Visit (ORTHMN ) DHARA DALLAS ([id number]) 1970 F Date Time Provider Department 12/22/20 [...] No history of dysuria, frequency or incontinence ZOOLOGY TECHNICAL OFFICER: Negative for abnormal vaginal bleeding, abnormal vaginal [...] degenerative di (more content not included)... Normal [facility] XR OUTSIDE CD DICOM IMPORT - NBNRon 11-17-2020 XR OUTSIDE CD DICOM IMPORT -NBNR Images were obtained outside of [facility] [id number] Normal [facility] XR OUTSIDE CD DICOM IMPORT -NBNR Images were obtained outside of [facility] [id number] Normal [facility] Vital Signs Date Time Vital Sign Value Performing Clinician Facility 04-07-2025 09:27-0400 Body height 165.1 cm Josey Youssef MD Work Phone: [facility] 04-07-2025 09:27-0400 Body mass index (BMI) [Ratio] 36.11 kg/m2 Josey Youssef MD Work Phone: [facility] 04-07-2025 09:27-0400 Body weight 98.43 kg Josey Youssef MD Work Phone: [facility] 04-07-2025 09:27-0400 Diastolic blood pressure 88 mm[Hg] Josey Youssef MD Work Phone: [facility] 04-07-2025 09:27-0400 Heart rate 90 /min Josey Youssef MD Work Phone: [facility] 04-07-2025 09:27-0400 SaO2% (BldA) [Mass fraction] 96 % Josey Youssef MD Work Phone: [facility] 04-07-2025 09:27-0400 Systolic blood pressure 138 mm[Hg] Josey Youssef MD Work Phone: [facility] 09-11-2024 09:28-0500 Body height 165.1 cm Janel Hemmer PA Work Phone: [facility] 09-11-2024 09:28-0500 Body mass index (BMI) [Ratio] 34.71 kg/m2 Janel Hemmer PA Work Phone: [facility] 09-11-2024 09:28-0500 Body weight 94.62 kg Janel Hemmer PA Work Phone: [facility] 09-11-2024 09:28-0500 Diastolic blood pressure 84 mm[Hg] Janel Hemmer PA Work Phone: [facility] 09-11-2024 09:28-0500 Heart rate 82 /min Janel Hemmer PA Work Phone: [facility] 09-11-2024 09:28-0500 Respiratory rate 16 /min Janel Hemmer PA Work Phone: [facility] 09-11-2024 09:28-0500 SaO2% (BldA) [Mass fraction] 95 % Janel Hemmer PA Work Phone: [facility] 09-11-2024 09:28-0500 Systolic blood pressure 138 mm[Hg] Janel Hemmer PA Work Phone: [facility] 08-12-2024 08:33-0500 Body height 165.1 cm Marnie Oconnell SPANNER OPERATOR Work Phone: [facility] 08-12-2024 08:33-0500 Body mass index (BMI) [Ratio] 33.48 kg/m2 Marnie Oconnell SPANNER OPERATOR Work Phone: [facility] 08-12-2024 08:33-0500 Body weight 91.26 kg Marnie Oconnell SPANNER OPERATOR Work Phone: [facility] 08-12-2024 08:33-0500 Diastolic blood pressure 84 mm[Hg] Marnie Oconnell SPANNER OPERATOR Work Phone: [facility] 08-12-2024 08:33-0500 Heart rate 101 /min Marnie Oconnell SPANNER OPERATOR Work Phone: [facility] 08-12-2024 08:33-0500 Respiratory rate 18 /min Marnie Oconnell SPANNER OPERATOR Work Phone: [facility] 08-12-2024 08:33-0500 SaO2% (BldA) [Mass fraction] 98 % Marnie Oconnell SPANNER OPERATOR Work Phone: [facility] 08-12-2024 08:33-0500 Systolic blood pressure 138 mm[Hg] Marnie Oconnell SPANNER OPERATOR Work Phone: [facility] 04-28-2024 08:30-0400 Body height 165.1 cm Janel Hemmer PA Work Phone: [facility] 04-28-2024 08:30-0400 Body mass index (BMI) [Ratio] 34.91 kg/m2 Janel Hemmer PA Work Phone: [facility] 04-28-2024 08:30-0400 Body weight 95.17 kg Janel Hemmer PA Work Phone: [facility] 04-28-2024 08:30-0400 Diastolic blood pressure 84 mm[Hg] Janel Hemmer PA Work Phone: [facility] 04-28-2024 08:30-0400 Heart rate 99 /min Janel Hemmer PA Work Phone: [facility] 04-28-2024 08:30-0400 Respiratory rate 16 /min Janel Hemmer PA Work Phone: [facility] 04-28-2024 08:30-0400 SaO2% (BldA) [Mass fraction] 93 % Janel Hemmer PA Work Phone: [facility] 04-28-2024 08:30-0400 Systolic blood pressure 124 mm[Hg] Janel Hemmer PA Work Phone: [facility] 04-14-2024 13:06-0400 Body height 165.1 cm Josey Youssef MD Work Phone: [facility] 04-14-2024 13:06-0400 Body mass index (BMI) [Ratio] 35.11 kg/m2 Josey Yousesf MD Work Phone: [facility] 04-14-2024 13:06-0400 Body weight 95.71 kg Josey Youssef MD Work Phone: [facility] 04-14-2024 13:06-0400 Diastolic blood pressure 76 mm[Hg] Josey Youssef MD Work Phone: [facility] 04-14-2024 13:06-0400 Heart rate 84 /min Josey Youssef MD Work Phone: [facility] 04-14-2024 13:06-0400 SaO2% (BldA) [Mass fraction] 93 % Josey Youssef MD Work Phone: [facility] 04-14-2024 13:06-0400 Systolic blood pressure 132 mm[Hg] Josey Youssef MD Work Phone: [facility] 03-22-2024 09:240400 Body height 165.1 cm [facility] 03-22-2024 09:240400 Body mass index (BMI) [Ratio] 35.2 kg/m2 [facility] 03-22-2024 09:240400 Body temperature 98 [degF] [facility] 03-22-2024 09:24-0400 Body weight 96.17 kg [facility] 03-22-2024 09:24-0400 Diastolic blood pressure 65 mm[Hg] [facility] 03-22-2024 09:24-0400 Heart rate 74 /min [facility] 03-22-2024 09:240400 Respiratory rate 18 /min [facility] 03-22-2024 09:24-0400 SaO2% (BldA) [Mass fraction] 94 % [facility] 03-22-2024 09:240400 Systolic blood pressure 132 mm[Hg] [facility] Encounters Encounter Date Encounter Type Care Provider Facility Start: 04-07-2025 End: 04-07-2025 Office outpatient visit 25 minutes Josey Youssef MD Work Phone: [facility] [place] [facility] Comment on above: Spinal stenosis of l umbar region, unspecified whether neurogenic claudication present (Primary Dx); Type 2 diabetes mellitus with diabetic nephropathy, without long-term current use of insulin ([facility]); Major depressive disorder, single episode, mild ; Essential hypertension Start: 04-07-2025 End: 04-07-2025 ambulatory JOSEY YOUSSEF Not Available Start: 03-15-2025 End: 03-16-2025 Refill Josey Youssef MD Work Phone: [facility] [place] [facility] Comment on above: Anxiety Start: 11-23-2024 End: [...] Start: 09-11-2024 End: 09-12-2024 External Result Encounter Jaenl GOLDMAN Work Phone: [facility] Unsolicited Start: 09-11-2024 End: 09-11-2024 Office outpatient visit 15 minutes Janel GOLDMAN Work Phone: [facility] Comment on above: Herpes zoster withou t complication (Primary Dx); Former smoker; Diabetic nephropathy associated with type 2 diabetes mellitus (HCC) ([facility]/HCC) Start: 09-11-2024 End: 09-11-2024 ambulatory JANEL CROWDER Not Available Start: 08-12-2024 End: 08-12-2024 Bamboo flowsheet Marnie Oconnell SPANNER OPERATOR Work Phone: [facility] Start: 08-12-2024 End: 08-12-2024 Bamboo flowsheet Marnie Oconnell SPANNER OPERATOR Work Phone: [facility] Start: 08-12-2024 End: 08-12-2024 Office outpatient visit 25 minutes Marnie Oconnell SPANNER OPERATOR Work Phone: [facility] Comment on [...] Hot flashes due to menopause; Hypertriglyceridemia (CMS/HCC); 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; Migraine without [...] complication, without long-term current use of insulin ([facility]/HCC); Morbid (severe) obesity due to excess calories ([facility]/HCC); Body mass index (BMI) 37.0-37.9, adult; Chronic obstructive pulmonary disease, unspecified (CMS/HCC); Atherosclerosis of aorta ([facility]/HCC); Pure hypercholesterolemia ([facility]/HCC); Migraine without aura and without status migrainosus, not intractable ([facility]/HCC); Depressive disorder ([facility]); Type 2 diabetes mellitus without complication, without long-term current use of insulin ([facility]); Anxiety; Gastroesophageal reflux disease without esophagitis Start: 04-14-2024 End: 04-14-2024 ambulatory JOSEY YOUSSEF Not Available Start: 03-22-2024 End: 03-22-2024 ambulatory [facility] Work Phone: Start: 03-22-2024 End: 03-22-2024 Patient encounter procedure [facility] [place] Work Phone: Start: 02-26-2023 [...] laboratory examination DR AMELIA WATTS . [facility] Start: 03-07-2022 End: 03-07-[address] [...] 12-03-2030 Screening for malignant neoplasm of colon [facility] Start: 09-11-2025 Urine screening for protein Diabetes: Urine Protein Screening [facility] Start: 07-07-2025 Hemoglobin A1c measurement Diabetes: Hemoglobin A1C [facility] Start: 04-28-2025 Urine screening for protein Diabetes: Urine Protein Screening [facility] Start: 04-20-2025 End: 04-20-2025 Patient encounter procedure [facility] Start: 04-18-2025 Screening for malignant neoplasm of breast Mammogram [facility] Start: 03-30-2025 Influenza vaccination [facility] Start: 01-13-2025 Hemoglobin A1c measurement Diabetes: Hemoglobin A1C [facility] Start: 10-13-2024 End: 10-13-2024 Patient encounter procedure 10/13/2024 9:00 AM EDT Office Visit [facility] [address] [facility] [address] [place] [id number] Josey Youssef MD [address] [facility] [address] [place] [address] [facility] Start: 09-11-2024 End: 09-11-2025 [...] [address] [address] [place] [address] Janel Crowder PA [address] [place] [address] [place] [address] Arrived [facility] Comment on above: Arrived Start: 08-12-2024 End: 08-12-2024 Patient encounter procedure [facility] Comment on above: Arrived Start: 07-14-2024 Hemoglobin A1c measurement Diabetes: Hemoglobin A1C [facility] Start: 04-28-2024 End: 04-28-2024 Patient encounter procedure 04/28/2024 8:30 AM EDT Office Visit [facility] [address] [place] [address] Janel Crowder PA [address] [place] [address] Arrived [facility] Comment on above: Arrived Start: 04-14-2024 End: 04-14-2025 CBC panel - Blood by Automated count CBC Lab Routine Essential hypertension (CMS/HCC) Type 2 diabetes mellitus with other specified complication, without long-term current use of insulin (CMS/HCC) Diabetic nephropathy associated with type 2 diabetes mellitus (HCC) (CMS/HCC) Pure hypercholesterolemia (CMS/HCC) Expected: 04/14/2024 (Approximate), Expires: 04/14/2025 [facility] Comment on above: Expected: 04/14/2024 (Approximate), [...] hypercholesterolemia (CMS/HCC) Expected: 04/14/2024 (Approximate), Expires: 04/14/2025 [facility] Comment on above: Expected: 04/14/2024 (Approximate), Expi res: 04/14/2025 Start: 04-14-2024 End: 06-14-2025 MG Breast - bilateral Screening Bilateral screening mammogram Imaging Routine Encounter for screening mammogram for malignant neoplasm of breast Expected: 04/14/2024, Expires: 06/14/2025 [facility] Work Phone: Comment on above: Expected: 04/14/2024, Expires: Start: 04-14-2024 End: 04-14-2024 Patient encounter procedure 04/14/2024 1:00 PM EDT Office Visit [facility] [address] [facility] [address] [place] [id number] Josey Youssef MD [address] [facility] [address] [place] [address] Arrived [facility] Comment on above: Arrived Start: 04-09-2024 Urine screening for protein Diabetes: Urine Protein Screening [facility] Start: 03-30-2024 Influenza vaccination Influenza Vaccine (#1) [facility] Start: 01-23-2024 Hemoglobin A1c measurement Diabetes: Hemoglobin A1C [facility] Start: 12-09-2022 Screening for malignant neoplasm of breast Mammogram [facility] Start: 1979 Glaucoma screening Diabetes: Retinopathy Screening [facility] Start: 1970 Screening for malignant neoplasm of colon [facility] Immunizations Immunization Date Immunization Notes Care Provider Fa cility 04-28-2024 zoster vaccine-recombinant adjuvanted (Shingrix) 50 MCG/0.5ML vaccine Janel GOLDMAN Work Phone: [facility] 04-28-2024 pneumococcal conjuga te 20-valent (Prevnar 20) 0.5 ML vaccine Janel GOLDMAN Work Phone: [facility] 06-15-2022 influenza, injectabl e, quadrivalent, preservative free Josey Youssef MD Work Phone: [facility] 06-15-2022 Moderna Bivalent Hernánedz ster Vaccination Josey Youssef MD Work Phone: [facility] 06-15-2022 SARS-COV-2 (COVID-19 ) vaccine, mRNA, spike protein, LNP, bivalent, preservative free, 30 mcg/0.3 mL dose, maria esther-sucrose formulation Josey Youssef MD Work Phone: [facility] 06-15-2022 influenza virus vacc ine, unspecified formulation Josey Youssef MD Work Phone: [facility] 07-11-2021 Influenza, injectabl e, Madin [place] Canine Kidney, preservative free, quadrivalent Josey Youssef MD Work Phone: [facility] Payers Date Payer Category Payer [facility] Insurance [facility] [id number] 2022 Unknown 1970 Unknown [id number] 2.16.840.1.682961.3.579. 2.593 1970 Unknown [id number] 2.16.840.1.149601.3.579. 2.593 1970 Unknown [id number] 2.16.840.1.775407.3.579. 2.593 1970 Unknown [id number] 2.16.840.1.001886.3.579. 2.593 1970 Unknown [id number] 2.16.840.1.433341.3.579. 2.593 1969 Unknown [id number] 2.16.840.1.497331.3.579. 2.593 1969 Unknown [id number] 2.16.840.1.730914.3.579. 2.593 1969 Unknown [id number] 2.16.840.1.051988.3.579. 2.593 1969 Unknown [id number] 2.16.840.1.925473.3.579. 2.593 1969 Unknown [id number] 2.16.840.1.929822.3.579. 2.593 1969 Unknown [id number] 2.16.840.1.962380.3.579. 2.593 1969 Unknown [id number] 2.16.840.1.605849.3.579. 2.593 1969 Unknown [id number] 2.16.840.1.563718.3.579. 2.593 1969 Unknown [id number] 2.16.840.1.886247.3.579. 2.593 1969 Unknown [id number] 2.16.840.1.454631.3.579. 2.196 1969 Unknown [id number] 2.16.840.1.395408.3.579. 2.196 1969 Unknown [id number] 2.16.840.1.402020.3.579. 2.196 1969 Unknown [id number] 2.16.840.1.682908.3.579. 2.196 1969 Unknown [id number] 2.16.840.1.642554.3.579. 2.1259 1970 Unknown [id number] 2.16.840.1.427231.3.579. 2.9 1970 Unknown [id number] 2.16.840.1.353487.3.579. 2.9 1970 Unknown [id number] 2.16.840.1.411905.3.579. 2.9 1969 Unknown [id number] 2.16.840.1.949714.3.579. 2.9 1969 Unknown [id number] 2.16.840.1.162020.3.579. 2.9 1959 Unknown [id number] 1959 Unknown [id number] Social History Date Type Detail Facility Start: 1984 Tobacco smoking stat [facility] Smoker (finding) [facility] Start: 1970 Sex Assigned At Female F [facility] Start: 01-01-2023 End: 04-28-2024 Tobacco smoking status SCIS Smokes tobacco daily [facility] Work Phone: [...] mon thly or less, caffeine yes coffee,soda [facility] Start: 1970 Sex assigned at Not on file [facility] Start: 09-11-2024 Tobacco smoking stat [facility] Ex-smoker [facility] Goals Date Patient Goal Desired Activity /State Personal health goal Functional Status Date Assessment Result Facility 04-07-2025 Patient Health [facility] ionnaire 2 item (PHQ-2) [Reported] [facility] Clinical Notes 12-22-2020 to 04-07-2025 Josey [...] months of each other Pt states the [employer] of the [employer] is not working for her anymore not [...] being taken. She does not see a composition teacher. Over the past 2 weeks, how often [...] tablet 3 montelukast (Singulair) 10 MG tablet fljxregtgcdn-jxwq-koesxdnu-folic acid (Centrum Silver, geriatric,) tablet as directed Orally nystatin (Mycostatin) 849397 UNIT/ML suspension OLANZapine (ZyPREXA) 10 MG tablet [...] Anxiety Meds F/U. documented in this encounter [facility] 09-11-2024 History of Present illness Narrative Images [...] tablet 3 montelukast (Singulair) 10 MG tablet jvpxxghndvlh-duyq-avplsbmi-folic acid (Centrum Silver, geriatric,) tablet as directed Orally nystatin (Mycostatin) [id number] UNIT/ML suspension OLANZapine (ZyPREXA) 10 MG tablet [...] Irritable bowel disease Respiratory failure with hypoxia ([facility]) 01/11/2023 Sepsis (CMS/[facility]) 01/11/2023 Past Surgical History: Procedure Laterality Date APPENDECTOMY 1986 SECTION, LOW TRANSVERSE 1994 CHOLECYSTECTOMY [address] Feltcher HEMORRHOIDECTOMY HYSTERECTOMY 2004 Visit Vitals BP 138/84 [...] associated with type 2 diabetes mellitus (HCC) ([facility]/HCC) - Microalbumin / creatinine urine ratio; Future Urine sample obtained today for Microalbumin testing. Follow up for Appointment As Scheduled. documented in this encounter [facility] 08-12-2024 History of Present illness Narrative Images [...] CAPSULE BY MOUTH DAILY 100 capsule 1 Quqblkrzuoj-Trxhjanfa-Hwdgxo (Trelegy Ellipta) 100-62.5-25 MCG/ACT aerosol powder Inhale [...] tablet 1 montelukast (Singulair) 10 MG tablet vdpehbkgvvlf-pfek-pqawgjfx-folic acid (Centrum Silver, geriatric,) tablet as directed Orally nystatin (Mycostatin) [id number] UNIT/ML suspension OLANZapine (ZyPREXA) 10 MG tablet [...] 2 diabetes mellitus with other specified complication ([facility]) We discussed today, the importance of [...] instructions. Type 2 diabetes mellitus without complications ([facility]) We discussed today, the importance of [...] Type 2 diabetes mellitus with diabetic nephropathy ([facility]) We discussed today, the importance of [...] follow-ups on file. documented in this encounter [facility] 06-18-2024 Telephone encounter Note OARRS reviewed, Rx sent into patient's pharmacy. [facility] 06-18-2024 Miscellaneous Notes OARRS reviewed, Rx sent into patient's pharmacy. documented in this encounter [facility] 09-30-2024 History of Present illness Narrative Images [...] CAPSULE BY MOUTH DAILY 100 capsule 1 Vimnyjxnmxq-Teixzntwy-Tvlvgv (Trelegy Ellipta) 100-62.5-25 MCG/ACT aerosol powder Inhale [...] tablet 1 montelukast (Singulair) 10 MG tablet qcqxxpdatpow-uqdy-itjiusoq-folic acid (Centrum Silver, geriatric,) tablet as directed Orally nystatin (Mycostatin) [id number] UNIT/ML suspension OLANZapine (ZyPREXA) 10 MG tablet [...] Irritable bowel disease Respiratory failure with hypoxia (CMS/[facility]) 01/11/2023 Sepsis (CMS/HCC) 01/11/2023 Past Surgical [...] time. Stage 3a chronic kidney disease (HCC) ([facility]) This is a chronic medical condition [...] associated with type 2 diabetes mellitus (HCC) ([facility]) Will continue to monitor with routine HgbA1c. Morbid (severe) obesity due to excess calories ([facility]) Encouraged portion control, decrease simple sugars and carbohydrates, gradually increase activity level. Aim for continued gradual steady weight loss. Type 2 diabetes mellitus with other specified complication, without long-term current use of insulin ([facility]) Will continue to monitor with routine HgbA1c. Type 2 diabetes mellitus without complication, without long-term current use of insulin ([facility]) - semaglutide (Ozempic, 1 MG/DOSE,) 2 MG/1.5ML solution pen-injector; Inject 1 mg under the skin 1 (one) time per week Will continue to monitor with routine HgbA1c. Adjustment disorder with anxiety ([facility]) This is a chronic medical condition that is stable since last assessment. No changes in treatment are suggested at this time. Seasonal allergic rhinitis due to pollen This is a chronic medical condition that is stable since last assessment. No changes in treatment are suggested at this time. Depressive disorder ([facility]) This is a chronic medical condition [...] treatment are suggested at this time. Hypertriglyceridemia ([facility]) This is a chronic medical condition that is stable since last assessment. No changes in treatment are suggested at this time. Will continue to monitor with routine labs. 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 documented in this encounter [facility] 04-14-2024 History of Present illness Narrative Associated [...] being taken. She does not see a composition teacher. Current Outpatient Medications on File Prior to [...] CAPSULE BY MOUTH DAILY 100 capsule 1 Yhymswmwuhx-Tknjysiqk-Wtstjh (Trelegy Ellipta) 100-62.5-25 MCG/ACT aerosol powder Inhale 1 puff in the morning. 1 each 11 gabapentin (Neurontin) 300 MG capsule loratadine (Claritin) 10 MG tablet 1 (one) time each day at the same time. metFORMIN (Glucophage) 500 MG tablet TAKE ONE TABLET BY MOUTH DAILY WITH A MEAL 100 tablet 1 hxndsbbqmxzf-xwfb-urquvsuj-folic acid (Centrum Silver, geriatric,) tablet as directed Orally nystatin (Mycostatin) [id number] UNIT/ML suspension OLANZapine (ZyPREXA) 10 MG tablet [...] 10/12/2024) for Diabetes. documented in this encounter [facility] 12-15-2022 Note PROCEDURE: XR SACRUM _COCCYX COMPARISON: [...] authenticated by: BRANDON CRUZ Date: 2022-12-15 08:23 [facility] 09-07-2022 Note CONSULTATION CONSULTATION DATE: 09/07/2022 HISTORY [...] indicated. Patient agrees with this plan. [facility] 09-07-2022 Note CONSULTATION PROCEDURE DATE: 09/07/2022 PREOPERATIVE [...] be followed up in the office. [facility] 06-01-2022 Note CONSULTATION CONSULTATION DATE: 06/01/2022 HISTORY [...] three months' time unless otherwise indicated. [facility] 06-01-2022 Note CONSULTATION PROCEDURE DATE: 06/01/2022 PREOPERATIVE [...] be followed up in the office. [facility] 04-06-2022 Note CONSULTATION PROCEDURE DATE: 04/06/2022 PRE [...] be followed up in the clinic. [facility] 04-06-2022 Note CONSULTATION CONSULTATION DATE: 04/06/2022 HISTORY [...] to continue with her multivitamin regimen. [facility] 01-26-2022 Note CONSULTATION CONSULTATION DATE: 01/26/2022 This [...] be followed up in the office post-procedure. [facility] Signed and Approved by: GRANT MCGILL . 02/02/2022 16:26:00 [facility] 12-22-2020 Note HNO ID: [id number] Author: Chris Oliva MD Service: ? Author [...] No history of dysuria, frequency or incontinence ZOOLOGY TECHNICAL OFFICER: Negative for abnormal vaginal bleeding, abnormal vaginal [...] It is unl (more content not included)... [facility] Evaluation note No assessment inform ation available [facility] Work Phone: Evaluation note Diagnosis Morbid obesity [...] esophagitis Esophageal reflux documented in this encounter [facility] HealthcareEvaluation note* Diagnosis Morbid obesity (CMS/HCC)- [...] associated with type 2 diabetes mellitus (HCC) ([facility]) Morbid (severe) obesity due to excess calories ([facility]) Type 2 diabetes mellitus with other specified complication, without long-term current use of insulin (CMS/HCC) Type 2 diabetes mellitus without complication, without long-term current use of insulin ([facility]) Adjustment disorder with anxiety ([facility]) Adjustment disorder with anxiety Seasonal allergic rhinitis due to pollen Depressive disorder ([facility]/HCC) Depressive disorder, not elsewhere classified Dizziness Dizziness and giddiness History of hysterectomy Acquired absence of both cervix and uterus Hot flashes due to menopause Hypertriglyceridemia (CMS/HCC) Pure hyperglyceridemia FDC (current) use of inhaled steroids Migraine without [...] pulmonary disease (CMS/HCC) documented in this encounter [facility] HealthcareEvaluation note* Diagnosis Morbid obesity (CMS/HCC)- Primary [...] complication, without long-term current use of insulin ([facility]CC) Anxiety Anxiety state, unspecified Gastroesophageal reflux disease [...] associated with type 2 diabetes mellitus (HCC) ([facility]) Tremors of nervous system Anxiety Anxiety state, unspecified documented in this encounter [facility] HealthcareEvaluation note* Diagnosis Morbid obesity (CMS-HCC)- Primary [...] Anxiety state, unspecified documented in this encounter [facility] HealthcareEvaluation note* Diagnosis Morbid obesity ([facility])- Primary Morbid obesity Type 2 diabetes mellitus without complication, without long-term current use of insulin (HCC) Essential hypertension Unspecified essential hypertension Smoker Tobacco use disorder Dizziness Dizziness and giddiness Migraine without aura and without status migrainosus, not intractable Acute exacerbation of chronic obstructive pulmonary disease ([facility]) Obstructive chronic bronchitis with exacerbation Nicotine dependence, cigarettes, with unspecified nicotine-induced disorders- Primary Type 2 diabetes mellitus with other specified complication, without long-term current use of insulin ([facility]) Adjustment disorder with anxiety Adjustment disorder with anxiety Migraine without aura and without status migrainosus, not intractable Pure hyperglyceridemia (E78.1) Pure hyperglyceridemia Stage 3a chronic kidney disease ([facility]) Diabetic nephropathy associated with type 2 diabetes mellitus (HCC)- Primary Essential hypertension Unspecified essential hypertension Encounter for screening mammogram for malignant neoplasm of breast Type 2 diabetes mellitus with other specified complication, without long-term current use of insulin ([facility]) Morbid (severe) obesity due to excess calories ([facility]) Body mass index (BMI) 37.0-37.9, adult [...] Unspecified essential hypertension documented in this encounter [facility] Healthcare Summary Purpose Family History No Family [...] section and content) DATE CREATED AUTHOR 08/30/2021 [facility] DATE CREATED AUTHOR AUTHOR'S ORGANIZ ATION 12/15/2021 [facility] dical Specialist DATE CREATED AUTHOR AUTHOR'S ORGANIZ ATION 01/05/2023 [facility] DATE CREATED AUTHOR AUTHOR'S ORGANIZ ATION 03/20/2023 [facility] DATE CREATED AUTHOR AUTHOR'S ORGANIZ ATION 09/14/2024 [facility] DATE CREATED AUTHOR AUTHOR'S ORGANIZ ATION 04/09/2025 [facility] dical Specialists EPIC Care Teams (unrecognized sec tion and content) Team Status: Active Member Role Status Dates Josey Youssef MD Primary Care Provider Active Team Status: Inactive Member Role Status Dates Josey Youssef MD Primary Care Provider Active S tart: March 22, 2024 End: March 22, 2024 Adeline Sampson APRN Attending Provider Active Start: March 22, 2024 End: March 22, 2024 Checker/Stocker Relationship Specialty Start Date End Date Josey Youssef MD [address] [address] PCP - General Family Medicine 12/21/22 Checker/Stocker Relationship Specialty Start Date End Date Josey Youssef MD [address] [address] PCP - General Family Medicine 12/21/22 Checker/Stocker Relationship Specialty Start Date End Date Josey Youssef MD [address] [address] PCP - General Family Medicine 12/21/22 Checker/Stocker Relationship Specialty Start Date End Date Josey Youssef MD [address] [place] [address] [place] [address] PCP - General Family Medicine 12/21/22 Checker/Stocker Relationship Specialty Start Date End Date Josey Youssef MD [address] [place] [address] [place] [address] PCP - General Family Medicine 12/21/22 Checker/Stocker Relationship Specialty Start Date End Date Josey Youssef MD [address] [place] [address] [place] [address] PCP - General Family Medicine 12/21/22 Checker/Stocker Relationship Specialty Start Date End Date Josey Youssef MD [address] [place] [place] [address] PCP - General Family Medicine 12/21/22 Checker/Stocker Relationship Specialty Start Date End Date Josey Youssef MD [address] [place] [address] [place] [address] PCP - General Family Medicine 12/21/22 Checker/Stocker Relationship Specialty Start Date End Date Josey Youssef MD [address] [place] [address] [place] [address] PCP - General Family Medicine 12/21/22 Checker/Stocker Relationship Specialty Start Date End Date Josey Youssef MD [address] [place] [address] [place] [address] PCP - General Family Medicine 12/21/22 Checker/Stocker Relationship Specialty Start Date End Date Josey Youssef MD [address] [place] [address] [place] [address] PCP - General Family Medicine 12/21/22 Checker/Stocker Relationship Specialty Start Date End Date Josey Youssef MD [address] [facility] [address] [place] [address] PCP - General Family Medicine 12/21/22 Checker/Stocker Relationship Specialty Start Date End Date Josey Youssef MD [address] [facility] [address] [place] [address] PCP - General Family Medicine 12/21/22 Checker/Stocker Relationship Specialty Start Date End Date Josey Youssef MD [address] [facility] [address] [place] [address] PCP - General Family Medicine 12/21/22 Goals [...] BE BASED ON THE PRIMARY CLINICAL RECORDS. [employer] provides no warranty or guarantee of the accuracy or completeness of information in this document.
--- OUTSIDE RECORDS SUMMARY | 2025-04-23 08:35 | XMS_ITS | Encounter Summary ---
Author Organization [facility] Address [address] [place] [address] Care Team Providers Care Project Analyst Name Role Phone Josey Gonsalez MD Primary Care Provider [phone] Encounter Details Date Type Department Care Team (Late st Contact Info) Description 01/22/2024 Abstract [facility] [place] [facility] [address] [facility] [address] [place] [phone] Josey Gonsalez MD [address] [facility] [address] [place] [address] Social History Tobacco Use Types Packs/Day Years [...] How often do you attend lutheran or church serv ices? Patient declined 10/22/2023 [...] 8:15 AM EST Office Visit [facility] [place] [facility] [address] [place] [address] [place] [phone] Josey Gonsalez MD 112 [facility] [address] [place] [address] documented as of this encounter Visit Diagnoses Not on filedocumented in this encounter Care Teams Project Analyst Relationship Specialty Start Date End Date Josey Gonsalez MD 112 [facility] [address] [place] [address] PCP - General Family Medicine 12/21/22 documented as of this encounter
--- OUTSIDE RECORDS SUMMARY | 2025-04-23 08:35 | XMS_ITS | Encounter Summary ---
Author Organization [facility] Address [address] [place] [address] Care Team Providers Care Real Time Trader Name Role Phone Josey Gonsalez MD Primary Care Provider [phone] Encounter Details Date Type Department Care Team (Late st Contact Info) Description 10/25/2023 Abstract [facility] [place] [facility] [address] [facility] [address] [place] [phone] Josey Gonsalez MD [address] [facility] [address] [place] [address] Social History Tobacco Use Types Packs/Day Years [...] How often do you attend zoroastrian or cheondoism serv ices? Patient declined 10/22/2023 Do you [...] AM EST Office Visit [facility] [place] [facility] [address] [place] [address] [place] [phone] Josey Gonsalez MD 112 [facility] 110 [place] [address] documented as of this encounter Visit Diagnoses Not on filedocumented in this encounter Care Teams Real Time Trader Relationship Specialty Start Date End Date Josey Gonsalez MD 112 [facility] 110 [place] [address] PCP - General Family Medicine 12/21/22 documented as of this encounter
--- OUTSIDE RECORDS SUMMARY | 2025-04-23 08:35 | XMS_ITS | Encounter Summary ---
Author Organization [facility] Address [address] [place] [address] Care Team Providers Care Aircraft Log Clerk Name Role Phone Josey Gonsalez MD Primary Care Provider [phone] Encounter Details Date Type Department Care Team (Late st Contact Info) Description 01/22/2024 Abstract [facility] [place] [facility] [address] [facility] [address] [place] [phone] Josey Gonsalez MD 112 [facility] [address] [place] [address] Social History Tobacco Use Types Packs/Day Years [...] declined 10/22/2023 How often do you attend gnosticist or druze serv ices? Patient declined 10/22/2023 Do you belong to any clubs o r organizations such as gnosticist groups, unions, fraternal or athletic groups, or [...] AM EST Office Visit [facility] [place] [facility] [address] [place] [place] [phone] Josey Gonsalez MD 112 [facility] [address] [place] [address] documented as of this encounter Visit Diagnoses Not on filedocumented in this encounter Care Teams Aircraft Log Clerk Relationship Specialty Start Date End Date Josey Gonsalez MD 112 [facility] [address] [place] [address] PCP - General Family Medicine 12/21/22 documented as of this encounter
--- OUTSIDE RECORDS SUMMARY | 2025-04-23 08:35 | XMS_ITS | Encounter Summary ---
Author Organization [facility] Address [address] [place] [place] [address] Care Team Providers Care Digital Strategist Senior Manager Name Role Phone Josey Gonsalez MD Primary Care Provider [phone] Encounter Details Date Type Department Care Team (Late st Contact Info) Description 03/14/2023 Abstract [facility] [place] [facility] 112 [facility] [address] [place] [address] Josey Gonsalez MD 112 [facility] [address] [place] [address] Social History Tobacco Use Types Packs/Day Years [...] EST Office Visit [facility] [place] [facility] 112 [facility] [address] [place] [phone] Josey Gonsalez MD 112 [facility] 110 [place] [address] documented as of this encounter Visit Diagnoses Not on filedocumented in this encounter Care Teams Digital Strategist Senior Manager Relationship Specialty Start Date End Date Josey Gonsalez MD 112 [place] [address] PCP - General Family Medicine 12/21/22 documented as of this encounter
--- OUTSIDE RECORDS SUMMARY | 2025-04-23 08:35 | XMS_ITS | Encounter Summary ---
Author Organization [facility] Address [address] [place] [address] Care Team Providers Care Harvester Operator Name Role Phone Josey Gonsalez MD Primary Care Provider [phone] Encounter Details Date Type Department Care Team (Late st Contact Info) Description 02/28/2023 Orders Only [facility] [place] [facility] [address] [facility] [address] [place] [address] A, Unknown Practice [address] [place] [phone] Social History Tobacco Use Types Packs/Day Years [...] [facility] [address] [place] [address] [place] [address] Josey Gonsalez MD [address] [place] [address] [place] [id number] documented as of this encounter Procedures Procedure Name Priority Date/Time Associated Diagnosis Comments CT HEAD FOR BRAINLAB W/O CONTRAST Routine 02/28/2023 11:[address] HEAD FOR BRAINLAB W/O CONTRAST Routine 02/28/2023 11:12 AM EDT documented in this encounter Results * CT HEAD FOR BRAINLAB W/O CONTRAST (02/28/2023 11:29 AM EDT) Anatomical Region Laterality Modality Radiographic Lynn ging us Madison Oconnell GRAVITY PROSPECTING OPERATOR IMG XR PROCEDURES Final Resu lt * CT HEAD FOR BRAINLAB W/O CONTRAST (02/28/2023 11:12 AM EDT) Anatomical Region Laterality Modality Radiographic Lynn ging us Unknown Practice A IMG XR PROCEDURES Final Resul t documented in this encounter Visit Diagnoses Not on filedocumented in this encounter Care Teams Harvester Operator Relationship Specialty Start Date End Date Josey Gonsalez MD 112 [place] [address] PCP - General Family Medicine 12/21/22 documented as of this encounter
--- OUTSIDE RECORDS SUMMARY | 2025-04-23 08:35 | XMS_ITS | Encounter Summary ---
Author Organization [facility] Address [address] [place] [address] Care Team Providers Care Loss Prevention Research Engineer Name Role Phone Josey Gonsalez MD Primary Care Provider [phone] Reason for Visit * Reason Comments Med Refill Encounter Details Date Type Department Care Team (Late st Contact Info) Description 10/25/2023 Refill [facility] [place] [facility] [address] [place] [address] [place] [phone] Josey Gonsalez MD [address] [place] [address] [place] [address] Essential hypertension Social History Tobacco Use Types [...] How often do you attend orthodoxy or cheondoism serv ices? Patient declined 10/22/2023 [...] place to sleep or slept in a intermediate (including now)? No 10/22/2023 Comments Unknown Sex [...] AM EST Office [facility] [address] [place] [address] [place] [address] Josey Gonsalez MD 112 [facility] [address] [place] [address] documented as of this encounter Visit Diagnoses Diagnosis Essential hypertension Unspecified essential hypertension documented in this encounter Care Teams Loss Prevention Research Engineer Relationship Specialty Start Date End Date Josey Gonsalez MD 112 [place] [facility] [address] [place] [address] PCP - General Family Medicine 12/21/22 documented as of this encounter
--- OUTSIDE RECORDS SUMMARY | 2025-04-23 08:35 | XMS_ITS | Encounter Summary ---
Author Organization [facility] Address [address] [place] [address] Care Team Providers Care Cloth Shrinking Machine Operator Name Role Phone Josey Gonsalez MD Primary Care Provider [phone] Encounter Details Date Type Department Care Team (Late st Contact Info) Description 03/01/2023 Orders Only [facility] [place] Ram Alan [address] [facility] [address] [place] [phone] [place] Oconnell, BRITTANY [address] [place] [address] [place] [address] Social History Tobacco Use Types Packs/Day Years [...] Visit [facility] [place] Castillonce [address] [facility] [address] [place] [phone] Josey Gonsalez MD [address] [place] [address] [place] [address] documented as of this encounter Procedures Procedure Name Priority Date/Time Associated Diagnosis Comments CT HEAD OR BRAIN W/ & W/O CONTRAST Routine 02/28/2023 1:36 PM EDT documented in this encounter Results * CT HEAD OR BRAIN W/ & W/O CONTRAST (02/28/2023 1:36 PM EDT) Anatomical Region Laterality Modality Radiographic Lynn ging us [place] Oconnell INFORMATION SERVICES TECH IMG XR PROCEDURES Final Resu lt documented in this encounter Visit Diagnoses Not on filedocumented in this encounter Care Teams Cloth Shrinking Machine Operator Relationship Specialty Start Date End Date Josey Gonsalez MD [address] [place] [address] PCP - General Family Medicine 12/21/22 documented as of this encounter
--- OUTSIDE RECORDS SUMMARY | 2025-04-23 08:35 | XMS_ITS | Encounter Summary ---
Author Organization [facility] Address [address] [facility] [place] [address] Care Team Providers Care Service Center Coordinator Name Role Phone Josey Gonsalez MD Primary Care Provider [phone] Encounter Details Date Type Department Care Team (Late st Contact Info) Description 02/26/2023 Abstract [facility] [place] Ram Alan 112 [facility] [address] [place] [address] Josey Gonsalez MD 112 [facility] [address] [place] [address] Social History Tobacco Use Types Packs/Day Years [...] 112 [facility] [address] [place] [address] Josey Gonsalez MD 112 [facility] [address] [place] [address] documented as of this encounter Visit Diagnoses Not on filedocumented in this encounter Care Teams Service Center Coordinator Relationship Specialty Start Date End Date Josey Gonsalez MD [address] [place] [address] PCP - General Family Medicine 12/21/22 documented as of this encounter
--- NOTE | 2025-04-23 08:36 | XR_ITS ---
The [address] [address] Patient Name: DHARA BETTENCOURT MRN: [id number] date: 1970 Sex: F Assigned Patient Location: Current Patient Location: Accession/Order Number: [id number] Exam Date: 04/23/2025 08:55 Report Date: 04/23/2025 09:47 At the request of: TYRA VANCE NP Procedure: XR sacroiliac joint LEIANE SI joints 3 views. Reason for exam: Sacroiliitis. COMPARISON: SI joints 12/15/2022. FINDINGS: SI joints demonstrate degenerative changes similar to the prior study with. Additional degenerative changes are seen involving the pubic symphysis. Avascular necrosis changes involving the hips without femoral head collapse. No acute bony process. Sacral foramina appear grossly intact. XR/XR sacroiliac joint ELIANE IMPRESSION: Degenerative changes involving the SI joints similar to the prior study. 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 Impression dictated by: Rafiq Rai Jr., D.O. 04/23/2025 9:47 AM Dictation Location: [place] [address] Electronically authenticated by: [id number] Y Date: 04/23/2025 09:47
--- NOTE | 2025-04-23 08:36 | XR_ITS ---
The [address] [address] Patient Name: DHARA BETTENCOURT MRN: [id number] date: 1970 Sex: F Assigned Patient Location: Current Patient Location: Accession/Order Number: [id number] Exam Date: 04/23/2025 08:55 Report Date: 04/23/2025 09:48 At the request of: TYRA VANCE NP Procedure: XR lumbar spine min 4V LUMBAR SPINE - 5 views CLINICAL HISTORY: Spondylosis, Sacroiliitis COMPARISON: MRI lumbar spine 12/15/2022 FINDINGS: Vertebral body heights appear maintained. Endplate and facet joint degenerative changes with moderate disc space narrowing L4-L5 L5-S1 which has progressed since 2022. XR/XR lumbar spine min 4V IMPRESSION: DEGENERATIVE CHANGES INVOLVING THE LUMBAR SPINE WITH MODERATE DISC SPACE NARROWING L4-L5 AND L5-S1 WHICH HAS PROGRESSED SINCE 2022. Impression dictated by: Rafiq Rai Jr., D.O. 04/23/2025 9:48 AM Dictation Location: [place] [address] Electronically authenticated by: [id number] Y Date: 04/23/2025 09:48
== END 2025-04-23 08:28 | disposition home or self-care (01) ==
LOC: RAD 08:29
PROVIDERS: PCP Family Medicine; Visit Provider Nurse Practitioner
DX: M46.1 Sacroiliitis, not elsewhere classified (principal); M47.816 Spondylosis without myelopathy or radiculopathy, lumbar region
CPT/HCPCS: 72110; 72202; G0463

== ENCOUNTER 2025-05-11 07:20 | Day surgery (SDC) | payer OTHER, SELFPAY ==
--- OUTSIDE RECORDS SUMMARY | 2025-05-11 07:23 | XMS_ITS | CCD ---
Author Organization [facility] Care Team Providers Care Entry Level Project Engineer Name Role Phone WATTS ., DR AMELIA [...] DR AMELIA Pool Admitting Unavailable LAKSHMIPATHY ., NARZACHARY Attending Doretha vailable HALKER .DEYA Consulting Unavailable LAKSHMIPATHY ., BHUMIKA Admitting Doretha vailable MIKAEL, DR DELGADO Primary Care Unavailable WATTS ., DR AMELIA Pool Attending Unavailable WATTS ., DR AMELIA Pool Admitting Unavailable MCGILL ., GRANT Consulting Unavailable MIKAEL, DR DELGADO Primary Care Unavailable CNADICE VALENCIA Consulting Unavailable CANDICE VALENCIA Attending Unavailable MIKAEL, DR DELGADO Primary Care Unavailable CANDICE VALENCIA Admitting Unavailable MIKAEL, DR DELGADO Primary Care Unavailable MARNIE OCONNELL Consulting Unavailable MARNIE OCONNELL Attending Unavailable MARNIE OCONNELL Admitting Unavailable MAC ., DR AMELIA Pool Attending Unavailable WATTS ., DR AMELIA Pool Admitting Unavailable MIKAEL, DR DELGADO Primary Care Unavailable MAC ., DR AMELIA Pool Consulting Unavailable HALKIA ., DEYA Attending Unavailable MIKAEL, DR DELGADO Primary Care Unavailable HALKIA ., DEYA Admitting Unavailable ZIEBER, DR BRANDON Underwood Consulting Unavailable HALKIA ., DEYA Consulting Unavailable MIKAEL, DR DELGADO Referring Unavailable MIKAEL, DR DELGADO Primary Care Unavailable ZIEBCHHAYA, DR BRANDON Underwood Consulting Unavailable HEMJANEL MURRY Attending Unavailable HEMJANEL MURRY M Admitting Unavailable HEMJANEL MURRY Consulting Unavailable MAC ., DR AMELIA Pool Attending Unavailable MAC ., DR AMELIA Pool Admitting Unavailable WATTS ., DR AMELIA Pool Consulting Unavailable MIKAEL, DR DELGADO Primary Care Unavailable KEVEN ESCOBEDO Consulting Unavailable Gieditis , Andkelli Sandoval Attending Unavailable Giedraitis , Andrius Sandoval Attending Unavailable Giedraitis , Andrius Sandoval Attending Unavailable Giedraitis , Yamile Sandoval Attending Unavailable [place] Josey GOMEZ Primary Care Provider JANEL CROWDER Attending Unavailable JOSEY YOUSSEF Attending Unavailable MIKAELJOSEY Lackey Attending Unavailable HEMJANEL MURRY Attending Unavailable MARNIE OCONNELL Attending Unavailable JOSEY YOUSSEF Attending Unavailable Allergies Allergy Classification Reported Allergen(s) Allergy Type Date of Onset Reaction(s) Facility (1 source) HYDROmorphone Drug Allergy 03-04-[address] [facility] Repository (20 sources) HYDROmorphone Drug Allergy 03-04-2013 Itching [facility] Medications Current Medications Medication Drug Class(es) Dates Sig (Normalized) Sig (Original) [id number] 200 actuat albuterol 0.09 mg/actuat metered dose inhaler (20 sources) beta2-Adrenergic Agonist Start: 12-21-2022 albuterol HFA 90 mcg/act inhaler 12/21/2022 Active albuterol 0.833 mg/ml / ipratropium bromide 0.167 mg/ml inhalation solution (20 sources) Anticholinergic, beta2-Adrenergic Agonist Start: 09-30-2023 ipratropium-albute [...] EVERY NIGHT AT BEDTIME 60 tablet 03/16/2025 Active amLODIPine 5 mg oral tablet (20 [...] Active Calcium Carbonate-Vit D-Min (CALCIUM 1200 PO) (9 sources) Calcium Carbonate-Vit D-Min (CALCIUM 1200 PO) [...] Dextromethorphan-buPROPion ER (Auvelity) 45-105 MG tablet controlled-release (4 sources) Start: 04-07-2025 End: 05-07-2025 take 45-105 mg by mouth once daily Dextromethorphan-buPROPion ER (Auvelity) 45-105 MG tablet controlled-release Indications: Major depressive disorder, single episode, mild Take 1 tablet by mouth Daily 30 tablet 04/07/2025 05/07/2025 Active 24 hr diclofenac sodium 100 mg extended release oral tablet (20 sources) Nonsteroidal Anti-inflamma tory Drug Start: 04-21-2025 take 1 tablet by mouth once daily diclofenac sodium (Voltaren XR) 100 mg 24 hr tablet Indications: Dizziness TAKE 1 TABLET BY MOUTH DAILY 30 tablet 2 04/21/2025 Active Start: 12-29-2024 take 1 tablet by [place] th once [...] Start: 02-11-2024 take 1 capsule by mo uth once [...] 1 puff(s) by inhalation in the morning Fnqnnkpwtlk-Kzrozwthn-Vtavea (Trelegy Ellipta) 100-62.5-25 MCG/ACT aerosol powder Indications: [...] 04/14/2024 Active gabapentin 300 mg oral capsule (13 sources) Anti-epileptic Agent Start: 09-11-2024 End: 09-21-2024 [...] 08/19/2024 Active montelukast 10 mg oral tablet (20 sources) Leukotriene Receptor Antagonist Start: 09-16-2023 montelukast (Singulair) 10 MG tablet 09/16/2023 Active biuuqwxuhyxy-aumf-uwtzxa ls-folic acid (Centrum Silver, geriatric,) tablet (20 sources) multivitamin-iro n-blasting gang miner als-folic acid (Centrum Silver, geriatric,) tablet as directed Orally Active nystatin 626996 unt/ml oral suspension (20 sources) Polyene Antifungal Start: 09-07-2022 nystatin (Mycostatin) 087316 UNIT/ML suspension 09/07/2022 Active ofloxacin 3 mg/ml ophthalmic solution (6 sources) Quinolone Antimicrobial Start: 03-22-2024 End: 04-28-2024 ofloxacin (Ocuflox) 0.3 % ophthalmic solution Four times daily 03/22/2024 04/28/2024 Discontinued (Therapy completed) Start: 03-22-2024 take 1 drop(s) into the eye(s) four times daily Ofloxacin Active 2 DROPS OPHTHALMIC Four times daily 5 March 22, 2024 12:00am right eye OLANZapine [...] omeprazole 40 mg delayed release oral capsule (20 sources) Proton Pump Inhibitor Start: 04-14-2024 End: [...] complication, without long-term current use of insulin ([facility]) Inject 1 mg under the skin [...] Semaglutide, 2 MG/DOSE, 8 MG/3ML solution pen-injector (4 sources) Start: 04-07-2025 End: 07-16-2025 inject 2 [...] Active zinc gluconate 50 mg oral tablet (9 sources) take 1 tablet by mouth once [...] Spondylosis; intervertebral disc disorders; other back problems (10 sources) Lumbago with sciatica, left side; Translations: [Intervertebral disc disorders with radiculopathy, lumbar region] Onset: 2 04-07-2025 Episodic Unclassified (1 source) CONTACT W/AND (SUSP) EXPOS COVID-19; Translations: [CONTACT W/AND (SUSP) EXPOS COVID-19] Onset: 3 Unclassified (1 source) ACUTE COUGH; Translations: [ACUTE COUGH] Onset: 3 Unclassified (3 sources) LOW BACK PAIN, UNSPECIFIED; Translations: [LOW BACK PAIN, UNSPECIFIED] Onset: 2 Unclassified (4 sources) Patient on antidepressant monitoring plan Onset: 5 04-07-2025 Unclassified (4 sources) Baseline PHQ-9 Onset: 5 04-07-2025 Viral [...] 12-26-2022 Episodic Other aftercare (1 source) Other senior care (current) drug therapy; Translations: [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] Onset: 05-17-2022 Episodic Other aftercare (20 sources) Long-term current use of inhaled steroid; Translations: [custodial (current) use of inhaled steroids] Onset: 04-05-2023 [...] Episodic Other diseases of kidney and ureters (9 sources) Cyst of kidney; Translations: [Cyst of [...] unclassified (20 sources) Flushing; Translations: [Flushing] Onset: 12-26-2022 Resolved: 04-28-2024 04-28-2024 Episodic Substance-related disorders (20 sources) Nicotine dependence, cigarettes, uncomplicated; Translations: [Smoker] Onset: 05-17-2022 Resolved: 09-11-2024 12-26-2022 Chronic Unclassified (1 source) LOW BACK PAIN, UNSPECIFIED; Translations: [LOW BACK PAIN, UNSPECIFIED] Onset: 05-16-2022 Results Test Name Value Interpretation Reference Range Facility XR LUMBAR SPINE [place] [address] [place] [address] XRay Report Signed Patient: DHARA DALLAS MR#: [id number] : 1970 Acct:[id number] Age/Sex: 54 / F ADM Date: 04/23/25 Loc: RAD Attending Dr: Tyra Graves BENCH SHEAR OPERATOR Ordering Physician: Tyra Graves NP Date of Service: 04/23/25 Procedure(s): XR lumbar spine min 4V Accession Number(s): [id number] cc: JOSEY YOUSSEF Anna NP [place] [phone] Patient Name: DHARA DALLAS MRN: [id number] date: 1970 Sex: F Assigned Patient Location: PM Current Patient Location: PM Accession/Order Number: [id number] Exam Date: 04/23/2025 08:55 Report Date: 04/23/2025 09:48 At the request of: TYRA GRAVES NP Procedure: XR lumbar spine min 4V LUMBAR SPINE - 5 views CLINICAL HISTORY: Spondylosis, Sacroiliitis COMPARISON: MRI lumbar spine 12/15/2022 FINDINGS: Vertebral body heights appear maintained. Endplate and facet joint degenerative changes with moderate disc space narrowing L4-L5 L5-S1 which has progressed since 2022. XR/XR lumbar spine min 4V IMPRESSION: DEGENERATIVE CHANGES INVOLVING THE LUMBAR SPINE WITH MODERATE DISC SPACE NARROWING L4-L5 AND L5-S1 WHICH HAS PROGRESSED SINCE 2022. Impression dictated by: Rafiq Rai Jr., D.O. 04/23/2025 9:48 AM Dictation Location: [place] [address] Electronically authenticated by: [id number] Y Date: 04/23/2025 09:48 Dictated By: Rafiq Rai M.D. Signed By: 04/23/25949 DD/ 7 TD/TT: Police Clerk: [facility] Radiology, Radiologist, MD - 04/23/2025 [place] [address] XRay Report Signed Patient: DHARA DALLAS MR#: [id number] : 1970 Acct:[id number] Age/Sex: 54 / F ADM Date: 04/23/25 Loc: RAD Attending Dr: Tyra Graves NP Ordering Physician: Tyra Graves NP Date of Service: 04/23/25 Procedure(s): XR lumbar spine min 4V Accession Number(s): [id number] cc: JOSEY YOUSSEF Anna NP [address] [place] [phone] Patient Name: DHARA DALLAS MRN: [facility]:[id number] date: 1970 Sex: F Assigned Patient Location: Current Patient Location: Accession/Order Number: [id number] Exam Date: 04/23/2025 08:55 Report Date: 04/23/2025 09:48 At the request of: TYRA GRAVES NP Procedure: XR lumbar spine min 4V LUMBAR SPINE - 5 views CLINICAL HISTORY: Spondylosis, Sacroiliitis COMPARISON: MRI lumbar spine 12/15/2022 FINDINGS: Vertebral body heights appear maintained. Endplate and facet joint degenerative changes with moderate disc space narrowing L4-L5 L5-S1 which has progressed since 2022. XR/XR lumbar spine min 4V IMPRESSION: DEGENERATIVE CHANGES INVOLVING THE LUMBAR SPINE WITH MODERATE DISC SPACE NARROWING L4-L5 AND L5-S1 WHICH HAS PROGRESSED SINCE 2022. Impression dictated by: Rafiq Rai Jr., D.O. 04/23/2025 9:48 AM Dictation Location: [place] [address] Electronically authenticated by: [id number] Y Date: 04/23/2025 09:48 Dictated By: Rafiq Rai M.D. Signed By: 04/23/25949 DD/ 7 TD/TT: Police Clerk: [facility] [employer] Radiology Study observation (narrative) [facility] XR LUMBAR SPINE MIN 4VOrdere d By: Radiologist Radiology on 04-23-2025 [facility] [employer] Work Phone: XR SACROILIAC JOINTon 2024 [place] [address] XRay Report Signed Patient: DHARA DALLAS MR#: [id number] : 1970 Acct:[id number] Age/Sex: 54 / F ADM Date: 04/23/25 Loc: RAD Attending Dr: Tyra Graves NP Ordering Physician: Tyra Graves NP Date of Service: 04/23/25 Procedure(s): XR sacroiliac joint ELIANE Accession Number(s): [id number] cc: JOSEY YOUSSEF Anna NP [place] [phone] Patient Name: DHARA DALLAS MRN: [id number] date: 1970 Sex: F Assigned Patient Location: PM Current Patient Location: PM Accession/Order Number: [id number] Exam Date: 04/23/2025 08:55 Report Date: 04/23/2025 09:47 At the request of: TYRA GRAVES NP Procedure: XR sacroiliac joint ELIANE SI joints 3 views. Reason for exam: Sacroiliitis. COMPARISON: SI joints 12/15/2022. FINDINGS: SI joints demonstrate degenerative changes similar to the prior study with. Additional degenerative changes are seen involving the pubic symphysis. Avascular necrosis changes involving the hips without femoral head collapse. No acute bony process. Sacral foramina appear grossly intact. XR/XR sacroiliac joint ELIANE IMPRESSION: Degenerative changes involving the SI joints similar to the prior study. 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 Impression dictated by: Rafiq Rai Jr., D.O. 04/23/2025 9:47 AM Dictation Location: [place] [address] Electronically authenticated by: [id number] Y Date: 04/23/2025 09:47 Dictated By: Rafiq Rai M.D. Signed By: 04/23/2549 DD/ 6 TD/TT: Police Clerk: [facility] Radiology, Radiologist, MD - 04/23/2025 [place] [address] XRay Report Signed Patient: DHARA DALLAS MR#: [id number] : 1970 Acct:[id number] Age/Sex: 54 / F ADM Date: 04/23/25 Loc: RAD Attending Dr: Tyra Graves NP Ordering Physician: Tyra Graves NP Date of Service: 04/23/25 Procedure(s): XR sacroiliac joint ELIANE Accession Number(s): [id number] cc: JOSEY YOUSSEF Anna NP [facility] [place] [phone] Patient Name: DHARA DALLAS MRN: [facility]:[id number] date: 1970 Sex: F Assigned Patient Location: Current Patient Location: PM Accession/Order Number: [id number] Exam Date: 04/23/2025 08:55 Report Date: 04/23/2025 09:47 At the request of: TYRA GRAVES NP Procedure: XR sacroiliac joint ELIANE SI joints 3 views. Reason for exam: Sacroiliitis. COMPARISON: SI joints 12/15/2022. FINDINGS: SI joints demonstrate degenerative changes similar to the prior study with. Additional degenerative changes are seen involving the pubic symphysis. Avascular necrosis changes involving the hips without femoral head collapse. No acute bony process. Sacral foramina appear grossly intact. XR/XR sacroiliac joint ELIANE IMPRESSION: Degenerative changes involving the SI joints similar to the prior study. 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 Impression dictated by: Rafiq Rai Jr., D.O. 04/23/2025 9:47 AM Dictation Location: [place] [address] Electronically authenticated by: [id number] Y Date: 04/23/2025 09:47 Dictated By: Rafiq Rai M.D. Signed By: 04/23/2549 DD/ 6 TD/TT: Police Clerk: [facility] Radiology Study observation (narrative) n[facility]q XR SACROILIAC JOINTOrdered B y: Radiologist Radiology on 04-23-2025 [facility] [employer] Work Phone: Laboratory - Hematology and Cell countson 04-07-2025 HbA1c (Bld) [Mass fraction] 5.5 % nVoq No Panel Informationon 04-07 Interpretation and review of laboratory results Normal [employer] ALBUMIN, RANDOM URINE W/CREA TININEon 09-12-2024 ALBUMIN, URINE 0.4 mg/dL Normal See Note: [facility] Comment on above: Result Comment: Refe rence Range: Reference Range Not established Performed By: #### 6 517 #### [facility] [place] [address] Printing Sales Representative: Christiano Escobar MD ALBUMIN/CREATININE RATIO, RANDOM URINE [...] By: #### 6 517 #### [facility] [place] [address] Printing Sales Representative: Christiano Escobar MD Creatinine (U) [Mass/Vol] 47 mg/dL Normal 20-275 [facility] Comment on above: Performed By: #### 6 517 #### [facility] [address], [address] [place] [address] Printing Sales Representative: Christiano Escobar MD Microalbumin/Creatinine rati o panel (U)on 09-12-2024 Albumin DL <= 20 mg/L (U) [Mass/Vol] 0.4 mg/dL See Note: [facility] [employer] [facility] Comment on above: Reference Range: Reference Range Not established Albumin/Creatinine (U) [Mass ratio] 9 NINF [facility] Comment on above: The ADA defines abnormalities [...] [Mass/Vol] 47 mg/dL 20 - 275 mg/dL [facility] [employer] [facility] Performing Organization Information Site ID: QPT Name: [facility] Address: [address] [place] [address], [address] [place], [place] [id number] Director: Christiano Escobar MD [facility] Hematology and Cell countson 04-14-2024 HbA1c (Bld) [Mass fraction] 5.7 % [facility] No Panel Informationon 04-14 Interpretation and review of laboratory results Normal [facility] CREATININEon 12-27-2022 Creatinine [Mass/Vol] 1.03 mg/dL Critically high 0.55-1.02 [facility] Comment on above: Performed By: #### C FLAKITO #### [facility] [address] [place] [address] [address] Radha Galindo EGFR-AF DUTCH >60 Normal >=60 [facility] Comment on above: Performed By: #### C FLAKITO #### [facility] [address] [place], [place] [address] Dr. Radha Galindo EGFR-NON AF DUTCH 56 mL/min/1.73m2 Critically low >=60 [facility] Comment on above: Performed By: #### C FLAKITO #### [facility] [address] [place] [address] [address] Radha Galindo XR CHEST 2 Von [...] by: AURORA HERNANDEZ Date: 2022-12-27 11:35 Normal [facility] MRI [facility] WO CONon 12-16-19 23 MRI [facility] WO CON EXAMINATION: MRI [facility] WO CON HISTORY: Lumbar spondylosis ; chronic [...] BRANDON CRUZ Date: 2022-12-15 12:[address] [facility] RESPIRATORY PANEL PLUSon Adenovirus Not detected Normal NOT DETECTED [facility] Comment on above: Performed By: #### R SPLUS ####[facility] [address] [place], [place] [address]Dr. Radha Galindo B. Parapertusis Not detected Normal NOT DETECTED [facility] Comment on above: Performed By: #### R SPLUS ####[facility] [address] [place], [place] [address]Dr. Radha Galindo B. Pertussis Not detected Normal NOT DETECTED [facility] Comment on above: Performed By: #### R SPLUS ####[facility] [address] [place], [place] [address]Dr. Radha Galindo Chlamydia Pneumoniae Not detected Normal NOT DETECTED [facility] Comment on above: Performed By: #### R SPLUS ####[facility] [address] [place], [place] [address]Dr. Radha Galindo Coronavirus 229E Not detected Normal NOT DETECTED [facility] Comment on above: Performed By: #### R SPLUS ####[facility] [address]os[address] [place], [place] [address]Dr. Radha Galindo Coronavirus HKU1 Not detected Normal NOT DETECTED [facility] Comment on above: Performed By: #### R SPLUS ####[facility] [address] [place], [place] [address]Dr. Radha Galindo Coronavirus NL63 Not detected Normal NOT DETECTED [facility] Comment on above: Performed By: #### R SPLUS ####[facility] [address] [place], [place] [address]Dr. Radha Galindo Coronavirus OC43 Not detected Normal NOT DETECTED [facility] Comment on above: Performed By: #### R SPLUS ####[facility] [address] [place], [place] [address]Dr. Radha Galindo Influenza A H1 Not detected Normal NOT DETECTED [facility] Comment on above: Performed By: #### R SPLUS ####[facility] [address] [place] [address]Dr. Radha Galindo Influenza A H1 2009 Not detected Normal NOT DETECTED [facility] Comment on above: Performed By: #### R SPLUS ####[facility] [address] [place] [address]Dr. Radha Galindo Influenza A H3 Not detected Normal NOT DETECTED [facility] Comment on above: Performed By: #### R SPLUS ####[facility] [address] [place] [address]Dr. Radha Galindo Influenza B Not detected Normal NOT DETECTED [facility] Comment on above: Performed By: #### R SPLUS ####[facility] [address] [place], [place] [address]Dr. Radha Galindo Metapneumovirus Not detected Normal NOT DETECTED [facility] Comment on above: Performed By: #### R SPLUS ####[facility] [address] [place], [place] [address]Dr. Radha Galindo Mycoplas. Pneumoniae Not detected Normal NOT DETECTED [facility] Comment on above: Performed By: #### R SPLUS ####[facility] [address] [place], [place] [address]Dr. Radha Galindo Parainfluenza 1 Not detected Normal NOT DETECTED [facility] Comment on above: Performed By: #### R SPLUS ####[facility] [address] [place], [place] [address]Dr. Radha Galindo Parainfluenza 2 Not detected Normal NOT DETECTED [facility] Comment on above: Performed By: #### R SPLUS ####[facility] [address] [place] [address]Dr. Radha Galindo Parainfluenza 3 Not detected Normal NOT DETECTED [facility] Comment on above: Performed By: #### R SPLUS ####[facility] [address] [place], [place] [address]Dr. Radha Galindo Parainfluenza 4 Not detected Normal NOT DETECTED [facility] Comment on above: Performed By: #### R SPLUS ####[facility] [address] [place] [address]Dr. Radha Galindo Rhino/Enterovirus Not detected Normal NOT DETECTED [facility] Comment on above: Performed By: #### R SPLUS ####[facility] [address] [place] [address]Dr. Radha Galindo RP2 Header 1 RESPIRATORY PANEL: VIRUSES Normal [facility] Comment on above: Performed By: #### R SPLUS ####[facility] [address] [place] [address]Dr. Radha Galindo RP2 Header 2 RESPIRATORY PANEL: BACTERIA Normal [facility] Comment on above: Performed By: #### R SPLUS ####[facility] [address] [place], [place] [address]Dr. Radha Galindo RSV Not detected Normal NOT DETECTED [facility] Comment on above: Performed By: #### R SPLUS ####[facility] X[address] [place], [place] [address]Dr. Radha Galindo SARS-CoV-2 (COVID-19) RNA SUSAN+probe Ql (Unsp spec) Not detected Normal NOT DETECTED [facility] Comment on above: Performed By: #### R SPLUS ####[facility] [address] [place], [place] [address]Dr. Radha Galindo XR CHEST 2 Von 09-07-2022 [...] BRANDON CRUZ Date: 2022-09-07 12:[address] [facility] CBC AUTO DIFFon 05-16-2022 BASO # 0.1 103/ul Normal 0.0-0.[address] [facility] Comment on above: Performed By: #### C BC ####[facility] [address] [place] [id number]. aRdha Galindo Basophils/100 WBC (Bld) 0.6 % Normal 0.2-2.0 [facility] Comment on above: Performed By: #### C BC ####[facility] [address] [place] [id number]. Radha Galindo EO # 0.2 103/ul Normal 0.0-0.[address] [facility] Comment on above: Performed By: #### C BC ####[facility] [address] [place], [place] [address]Dr. Radha Galindo Eosinophils/100 WBC (Bld) 1.3 % Normal 0.9-7.0 [facility] Comment on above: Performed By: #### C BC ####[facility] I[address] [place], [place] [address]Dr. Radha Galindo Erythrocyte distribution width (RBC) [Ratio] 14.6 % Normal 11.0-15.0 [facility] Comment on above: Performed By: #### C BC ####[facility] [address] [place], [place] [address]Dr. Radha Galindo Hematocrit (Bld) [Volume fraction] 45.1 % Normal 36.0-48.0 [facility] Comment on above: Performed By: #### C BC ####[facility] [address] [place], [place] [id number]. Radha Galindo Hemoglobin (Bld) [Mass/Vol] 14.9 g/dL Normal 12.0-16.0 [facility] Comment on above: Performed By: #### C BC ####[facility] [address] [place], [place] [address]Dr. Radha Galindo IG # 0.06 10e3/ul Critically high 0.00-0.03 [facility] Comment on above: Performed By: #### C BC ####[facility] [address] [place], [place] [address]Dr. Radha Galindo IG % 0.4 % Normal 0.0-0.[address] [facility] Comment on above: Performed By: #### C BC ####[facility] [address] [place] [id number]. Radha Galindo LYMPH # 3.7 103/ul Normal 1.2-3.[address] [facility] Comment on above: Performed By: #### C BC ####[facility] [address] [place] [address]Dr. Radha Galindo Lymphocytes/100 WBC (Bld) 27.7 % Normal 20.5-60.0 [facility] Comment on above: Performed By: #### C BC ####[facility] [address] [place] [address]Dr. Radha Galindo MANUAL DIFF REQ NO Normal [facility] Comment on above: Performed By: #### C BC ####[facility] [address] [place] [address]Dr. Radha Galindo MCH (RBC) [Entitic mass] 31.6 pg Normal 26.7-34.0 [facility] Comment on above: Performed By: #### C BC ####[facility] [address] [place] [phone]. Radha Galindo MCHC (RBC) [Mass/Vol] 33.0 g/dL Normal 29.9-35.[address] [facility] Comment on above: Performed By: #### C BC ####[facility] [address] [place] [phone]. Radha Galindo MCV (RBC) [Entitic vol] 95.6 fL Normal 81.0-99.[address] [facility] Comment on above: Performed By: #### C BC ####[facility] [address] [place] [id number]. Radha Galindo MONO # 0.7 103/ul Normal 0.3-0.[address] [facility] Comment on above: Performed By: #### C BC ####[facility] In[address] [place] [id number]. Radha Galindo Monocytes/100 WBC (Bld) 5.3 % Normal 1.7-12.0 [facility] Comment on above: Performed By: #### C BC ####[facility] [address] [place], [place] [address]Kd. Radha Galindo NEUT # 8.8 103/ul Critically high 1.4-6.5 [facility] Comment on above: Performed By: #### C BC ####[facility] [address] [place], [place] [address]Ae. Judyricky Mateo Neutrophils/100 WBC (Bld) 64.7 % Normal 43.0-75.[address] [facility] Comment on above: Performed By: #### C BC ####[facility] [address] [place] [address]Dr. Radha Galindo Platelet mean volume (Bld) [Entitic vol] 9.1 fL Critically low 9.5-13.[address] [facility] Comment on above: Performed By: #### C BC ####[facility] [address] [place] [address]Dr. Judyricky Mateo PLT 318 103/ul Normal 150-[address] [facility] Comment on above: Performed By: #### C BC ####[facility] Y[address] [place] [address]Dr. Radha Galindo RBC 4.72 106/ul Normal 4.20-5.[address] [facility] Comment on above: Performed By: #### C BC ####[facility] [address]va[address] [place] [address]Dr. Radha Galindo WBC 13.5 103/ul Critically high 4.0-11.0 [facility] Comment on above: Performed By: #### C BC ####[facility] [address] [place] [address]DrInna Radha Mateo CRPon 05-16-2022 CRP 0.3 mg/dL Normal <=1.[address] [facility] Comment on above: Performed By: #### B MP, CRP #### [facility] [address] [place], [place] [address] Dr. Radha Galindo PROF CHEM 8 (BAS METB)on Anion gap [Moles/Vol] 13.7 mmol/L Normal [facility] Comment on above: Performed By: #### B MP, CRP #### [facility] [address] [place] [address] [address] Radha Galindo Calcium [Mass/Vol] 9.5 mg/dL Normal 8.5-10.1 [facility] Comment on above: Performed By: #### B MP, CRP #### [facility] [address] [place] [address] [address] Radha Galindo Chloride [Moles/Vol] 104 mmol/L Normal 98-107 [facility] Comment on above: Performed By: #### B MP, CRP #### [facility] [address] [place] [address] [address] Radha Galindo CO2 [Moles/Vol] 27.0 mmol/L Normal 21.0-32.0 [facility] Comment on above: Performed By: #### B MP, CRP #### [facility] [address] [place] [address] [address] Radha Galindo Creatinine [Mass/Vol] 1.01 mg/dL Normal 0.55-1.02 [facility] Comment on above: Performed By: #### B MP, CRP #### [facility] [address] [place] [address] [address] Radha Galindo EGFR-AF DUTCH >60 Normal >=60 [facility] Comment on above: Performed By: #### B MP, CRP #### [facility] [address] [place] [address] [address] Radha Galindo EGFR-NON AF DUTCH 58 mL/min/1.73m2 Critically low >=60 [facility] Comment on above: Performed By: #### B MP, CRP #### [facility] [address] [place] [address] [address] Radha Galindo Glucose [Mass/Vol] 137 mg/dL Critically high 74-106 [facility] Comment on above: Performed By: #### B MP, CRP #### [facility] [address] [place] [address] [address] Radha Galindo Potassium [Moles/Vol] 3.7 mmol/L Normal 3.5-5.1 [facility] Comment on above: Performed By: #### B MP, CRP #### [facility] [address] [place] [address] [address] Radha Galindo Sodium [Moles/Vol] 141 mmol/L Normal 136-145 [facility] Comment on above: Performed By: #### B MP, CRP #### [facility] [address] [place] [address] [address] Radha Galindo Urea nitrogen [Mass/Vol] 11.0 mg/dL Normal 7.0-18.0 [facility] Comment on above: Performed By: #### B MP, CRP #### [facility] [address] [place] [address] [address] Radha Galindo Urea nitrogen/Creatinine [Mass ratio] 10.9 mg/mg Normal [facility] Comment on above: Performed By: #### B MP, CRP #### [facility] [address] [place] [address] [address] Radha Galindo SED RATE [facility] 2021 SED RATE 18 mm/hr Normal <=30 [facility] Comment on above: Performed By: #### S EDR ####[facility] [address] [place] [address]Dr. Radha Galindo [facility] SARS-CoV-2 (COVID-19) RNA SUSAN+probe Ql (Unsp spec) Not detected Normal NOT DETECTED [facility] Comment on above: Result Comment: This test is not yet approved or cleared by the [place] FDA. When there are no FDA-approved or cleared tests available, and other criteria are met, FDA can make tests available under an emergency access mechanism called an Emergency Use Authorization (EUA). The EUA for this test is supported by the [employer] of Health and Human Service's (HHS's) declaration [...] SARS-CoV-2. Performed By: #### C VDTBH #### [facility] [address] [place] [address] [address] Radha Galindo Covid-19 PCR ([facility])on 01-28 SARS-CoV-2 (COVID-19) RNA SUSAN+probe Ql (Unsp spec) Not detected Normal NOT DETECTED [facility] Comment on above: Result Comment: This test is not yet approved or cleared by the [place] FDA. When there are no FDA-approved or cleared tests available, and other criteria are met, FDA can make tests available under an emergency access mechanism called an Emergency Use Authorization (EUA). The EUA for this test is supported by the [place] of Health and Human Service's (HHS's) declaration [...] SARS-CoV-2. Performed By: #### C VDTBH #### [facility] [address] [place], [place] [address] Dr. Radha Galindo Microalbumin (with Creat)on 12-12-2021 mALB <1.2 Low [facility] Comment on above: Result Comment: Unab le to calculate mALB/Crea ratio, mALB is <1.2 mg/dL mALB reference range not established. Performed By: #### m ALBC #### [facility] [address] [place] [id number] UCREA 60 mg/dL Normal 28-217 [facility] Specialist Comment on above: Performed By: #### m ALBC #### [facility] [address] [place], [place] [id number] Complete Blood Count with Au to Diffon 11-28-2021 Basophils (Bld) [#/Vol] 0.07 10*3/uL Normal 0.00-0.20 [facility] [employer] Comment on above: Performed By: #### C MP, CBCAD, VITD, LIPD #### [facility] [address] [place], [place] [id number] Basophils/100 WBC (Bld) 0.6 % Normal [facility] [employer] Comment on above: Performed By: #### C MP, CBCAD, VITD, LIPD #### [facility] [address] [place], [place] [id number] Eosinophils (Bld) [#/Vol] 0.17 10*3/uL Normal 0.02-0.50 [facility] [employer] Comment on above: Performed By: #### C MP, CBCAD, VITD, LIPD #### [facility] [address] [place], [place] [id number] Eosinophils/100 WBC (Bld) 1.4 % Normal [facility] [employer] Comment on above: Performed By: #### C MP, CBCAD, VITD, LIPD #### [facility] [address] [place], [place] [id number] Erythrocyte distribution width (RBC) [Ratio] 14.1 % Normal 11.0-15.0 [facility] [employer] Comment on above: Performed By: #### C MP, CBCAD, VITD, LIPD #### [facility] [address] [place], [place] [id number] Hematocrit (Bld) [Volume fraction] 46.1 % Normal 35.0-47.0 [facility] Comment on above: Performed By: #### C MP, CBCAD, VITD, LIPD #### [facility] [address] [place], [place] [id number] Hemoglobin (Bld) [Mass/Vol] 15.6 g/dL High 11.6-15.5 [facility] [employer] Comment on above: Performed By: #### C MP, CBCAD, VITD, LIPD #### [facility] [address] [place], [place] [id number] Lymphocytes (Bld) [#/Vol] 3.0 10*3/uL Normal 0.9-3.9 [facility] Comment on above: Performed By: #### C MP, CBCAD, VITD, LIPD #### [facility] [address] [id number] Lymphocytes/100 WBC (Bld) 25.9 % Normal [facility] Specialist Comment on above: Performed By: #### C MP, CBCAD, VITD, LIPD #### [facility] [address] [place], [place] [id number] MCH (RBC) [Entitic mass] 31.0 pg Normal 27.0-33.0 [facility] Specialist Comment on above: Performed By: #### C MP, CBCAD, VITD, LIPD #### [facility] [address] [place], [place] [id number] MCHC (RBC) [Mass/Vol] 33.8 g/dL Normal 32.0-36.0 [facility] Specialist Comment on above: Performed By: #### C MP, CBCAD, VITD, LIPD #### [facility] [address] [place], [place] [id number] MCV (RBC) [Entitic vol] 92 fL Normal 80-100 [facility] Specialist Comment on above: Performed By: #### C MP, CBCAD, VITD, LIPD #### [facility] [address] [place], [place] [id number] Monocytes (Bld) [#/Vol] 0.8 10*3/uL Normal 0.2-0.9 [facility] Specialist Comment on above: Performed By: #### C MP, CBCAD, VITD, LIPD #### [facility] [address] [place], [place] [id number] Monocytes/100 WBC (Bld) 6.8 % Normal [facility] Specialist Comment on above: Performed By: #### C MP, CBCAD, VITD, LIPD #### [facility] [address] [place], [place] [id number] Neutrophils (Bld) [#/Vol] 7.6 10*3/uL Normal 1.5-7.8 [facility] Comment on above: Performed By: #### C MP, CBCAD, VITD, LIPD #### [facility] [address] [place], [place] [id number] Neutrophils/100 WBC (Bld) 64.4 % Normal [facility] Comment on above: Performed By: #### C MP, CBCAD, VITD, LIPD #### [facility] [address] [place], [place] [id number] Platelet mean volume (Bld) [Entitic vol] 9.50 fL Normal 7.50-12.50 [facility] Comment on above: Performed By: #### C MP, CBCAD, VITD, LIPD #### [facility] [address] [place], [place] [id number] Platelets (Bld) [#/Vol] 304 10*3/uL Normal 140-400 [facility] Comment on above: Performed By: #### C MP, CBCAD, VITD, LIPD #### [facility] [address] [place], [place] [id number] RBC (Bld) [#/Vol] 5.03 10*6/uL Normal 3.90-5.20 [facility] Comment on above: Performed By: #### C MP, CBCAD, VITD, LIPD #### [facility] [address] [place], [place] [id number] RDW-SD 47.6 fL Normal 37.0-50.0 [facility] Comment on above: Performed By: #### C MP, CBCAD, VITD, LIPD #### [facility] [address] [place], [place] [id number] WBC (Bld) [#/Vol] 11.8 10*3/uL High 3.8-11.0 [facility] Comment on above: Performed By: #### C MP, CBCAD, VITD, LIPD #### [facility] [address] [place], [place] [id number] Comprehensive Metabolic Pane aditya 11-28-2021 Albumin [Mass/Vol] 4.9 g/dL Normal 3.6-5.1 [facility] Comment on above: Performed By: #### C MP, CBCAD, VITD, LIPD #### [facility] [address] [place], [place] [id number] Albumin/Globulin [Mass ratio] 2.3 {ratio} Normal 1.0-2.5 [facility] Comment on above: Performed By: #### C MP, CBCAD, VITD, LIPD #### [facility] [address] [place], [place] [id number] ALP [Catalytic activity/Vol] 82 U/L Normal 35-119 [facility] Specialist Comment on above: Performed By: #### C MP, CBCAD, VITD, LIPD #### [facility] [address] [place], [place] [id number] ALT [Catalytic activity/Vol] 44 U/L High 6-33 [facility] Special[facility] Comment on above: Result Comment: 06/29 Female reference range changed. Performed By: #### C MP, CBCAD, VITD, LIPD #### [facility] [address] [place], [place] [id number] Anion gap [Moles/Vol] 17 mmol/L Normal 12-20 [facility] Special[facility] Comment on above: Result Comment: Effe ctive 08/04/2019 reference range changed. Performed By: #### C MP, CBCAD, VITD, LIPD #### [facility] [address] [place], [place] [id number] AST [Catalytic activity/Vol] 27 U/L Normal 9-34 [facility] Specialist Comment on above: Performed By: #### C MP, CBCAD, VITD, LIPD #### [facility] [address] [place], [place] [id number] Bilirubin [Mass/Vol] 0.97 mg/dL Normal 0.30-1.20 [facility] Comment on above: Performed By: #### C MP, CBCAD, VITD, LIPD #### [facility] [address] [place], [place] [id number] BUN/CREA 14 Ratio Normal 6-22 [facility] Specialist Comment on above: Performed By: #### C MP, CBCAD, VITD, LIPD #### [facility] [address] [place], [place] [id number] Calcium [Mass/Vol] 10.3 mg/dL High 8.6-10.2 Teresita garcia [place] [employer] Comment on above: Performed By: #### C MP, CBCAD, VITD, LIPD #### [facility] [address] [facility] [place] [id number] Chloride [Moles/Vol] 101 mmol/L Normal 98-107 [facility] Comment on above: Performed By: #### C MP, CBCAD, VITD, LIPD #### [facility] [address] [place], [place] [id number] CO2 [Moles/Vol] 25 mmol/L Normal 20-31 [facility] Specialist Comment on above: Performed By: #### C MP, CBCAD, VITD, LIPD #### [facility] [address] [facility] [id number] Creatinine [Mass/Vol] 1.0 mg/dL Normal 0.6-1.4 [facility] [employer] Comment on above: Performed By: #### C MP, CBCAD, VITD, LIPD #### [facility] [address] [place] [id number] eGFRAA 75 mL/min/1.73m2 Normal >60 [facility] [employer] Comment on above: Performed By: #### C MP, CBCAD, VITD, LIPD #### [facility] [address] [place], [place] [id number] eGFRNAA 62 mL/min/1.73m2 Normal >60 [facility] [employer] Comment on above: Performed By: #### C MP, CBCAD, VITD, LIPD #### [facility] [address] [place], [place] [id number] Globulin (S) [Mass/Vol] 2.1 g/dL Normal 1.9-3.7 [facility] [employer] Comment on above: Performed By: #### C MP, CBCAD, VITD, LIPD #### [facility] [address] [place], [place] [id number] Glucose [Mass/Vol] 120 mg/dL High 65-99 Teresita garcia [place] [employer] Comment on above: Result Comment: For FASTING Glucose --- ADA reference ranges: Normal 65-99 mg/dl Prediabetes 100-125 Diabetes >/= 126 Performed By: #### C MP, CBCAD, VITD, LIPD #### [facility] [address] [place], [place] [id number] Potassium [Moles/Vol] 4.4 mmol/L Normal 3.5-5.5 [facility] [employer] Comment on above: Performed By: #### C MP, CBCAD, VITD, LIPD #### [facility] [address] [place], [place] [id number] Protein [Mass/Vol] 7.0 g/dL Normal 6.1-8.1 Teresita garcia [place] [employer] Comment on above: Performed By: #### C MP, CBCAD, VITD, LIPD #### [facility] [address] [place], [place] [id number] Sodium [Moles/Vol] 139 mmol/L Normal 135-146 Teresita garcia [place] [employer] Comment on above: Performed By: #### C MP, CBCAD, VITD, LIPD #### [facility] [address] [place], [place] [id number] Urea nitrogen [Mass/Vol] 13 mg/dL Normal 7-25 [facility] [employer] Comment on above: Performed By: #### C MP, CBCAD, VITD, LIPD #### [facility] [address] [place], [place] [id number] Hemoglobin A1Con 11-28-2021 EAG 131.24 Normal [facility] [employer] Comment on above: Performed By: #### A 1C #### [facility] [address] [place], [place] [id number] HbA1c (Bld) [Mass fraction] 6.2 % High 4.0-6.0 [facility] [employer] Comment on above: Performed By: #### A 1C #### [facility] [address] [place], [place] [id number] Lipid Panelon 11-28-2021 Cholesterol [Mass/Vol] 243 mg/dL High 125-200 [facility] [employer] Comment on above: Result Comment: Low risk < 200mg/dL Borderline risk 201-239 mg/dl High risk > or equal to 240 Performed By: #### C MP, CBCAD, VITD, LIPD #### [facility] [address] [place], [place] [id number] Cholesterol in HDL [Mass/Vol] 58 mg/dL Normal >40 [facility] [employer] Comment on above: Result Comment: High Cardiovascular Risk HDL <40 mg/dL Low Cardiovascular Risk HDL > or equal to 60 mg/dl Performed By: #### C MP, CBCAD, VITD, LIPD #### [facility] [address] [place], [place] [id number] Cholesterol in LDL [Mass/Vol] 154 mg/dL Normal [facility] Specialist Comment on above: Result Comment: LDL ATP III CLASSIFICATION LDL less than 100 mg/dl Optimal LDL 100-129 mg/dl Near or above optimal LDL 130-159 Borderline high LDL 160-189 High LDL greater than 189 mg/dl Very High Performed By: #### C MP, CBCAD, VITD, LIPD #### [facility] [address] [place], [place] [id number] Cholesterol in VLDL [Mass/Vol] 31 mg/dL Normal [facility] [employer] Comment on above: Performed By: #### C MP, CBCAD, VITD, LIPD #### [facility] [address] [place], [place] [id number] Cholesterol.total/Ch olesterol in HDL [Mass ratio] 4 {ratio} Normal [facility] [employer] Comment on above: Performed By: #### C MP, CBCAD, VITD, LIPD #### [facility] [address] [place], [place] [id number] Triglyceride [Mass/Vol] 154 mg/dL High 30-150 [facility] [employer] Comment on above: Result Comment: TRIG ATPIII CLASSIFICATIONS TRIG less than 150 mg/dl Normal TRIG 150-199 mg/dl Borderline High TRIG 200-500 mg/dl High TRIG greather than 500 mg/dl Very High Performed By: #### C MP, CBCAD, VITD, LIPD #### [facility] [address] [id number] Vitamin D 25-OHon 11-28-2021 VIT D 25 [place] 73 ng/ml Normal >29 [facility] [employer] Comment on above: Result Comment: Janneth min D Status Deficiency <20 ng/mL Insufficiency 20-29 ng/mL Optimal 30-100 ng/mL Possible Toxicity >=150 ng/mL Performed By: #### C MP, CBCAD, VITD, LIPD #### [facility] [address] [facility] MATT HERRERA [id number] [facility] 03-08-2021 CNPN Telephone (ORQ) DHARA DALLAS ([id number]) 1970 F Date Time Provider Department 03/08/21 NAINA OLIVA ORQ During your visit today, we recorded the following information about you: [place]enna Lackey [place] [facility] [place] 4:45 PM Signed Patient called requesting a refill for Diclofenac Sod ER 100 mg tab. To send to [facility] at [phone] fax [phone] Glenna Lackey [place]a [facility] [place]17/[place]21 1:01 PM Signed Spoke to patient, she stated that got theOral Voltaren Oral Voltaren from her family doctor. 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 Allergies As of Date: 03/08/2021 Noted Allergy Reaction HYDROMORPHONE 03/04/2013 9 - Itching Date Reviewed: 12/22/2020 Reviewed by: Kirsten Vilchis - Fully Assessed Reason for Visit: Medication Question [1478] Prescriptions as of 03/17/2021 - DULoxetine (CYMBALTA) [...] Encounter Status:Closed by GLENNA QUINN on 03/17/21 [facility] Telephone (ORQ) DHARA DALLAS ([id number]) 1970 F Date Time Provider Department 03/08/21 NAINA OLIVA ORQ During your visit today, we [...] Encounter Status:Closed by GLENNA QUINN on 03/08/21 Normal [facility] CNOVon 12-22-2020 CNOV Office Visit (ORTHMN ) DHARA DALLAS ([id number]) 1970 F Date Time Provider Department 12/22/20 [...] No history of dysuria, frequency or incontinence 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 Normal [facility] XR OUTSIDE CD DICOM IMPORT - NBNRon 11-17-2020 XR OUTSIDE CD DICOM IMPORT -NBNR Images were obtained outside of [facility] [id number] N Normal [facility] XR OUTSIDE CD DICOM IMPORT -NBNR Images were obtained outside of [facility] [id number] N Normal [facility] Vital Signs Date Time Vital Sign Value Performing Clinician Facility 04-07-2025 09:27-0400 Body height 165.1 cm Josey Youssef MD Work Phone: [facility] 04-07-2025 09:27-0400 Body mass index (BMI) [Ratio] 36.11 kg/m2 Josey Youssef MD Work Phone: [facility] 04-07-2025 09:27-0400 Body weight 98.43 kg Josey Youssef MD Work Phone: [facility] 04-07-2025 09:27-0400 Diastolic blood pressure 88 mm[Hg] Josey Youssef MD Work Phone: [facility] 04-07-2025 09:27-0400 Heart rate 90 /min Josey Youssef MD Work Phone: [facility] 04-07-2025 09:27-0400 SaO2% (BldA) [Mass fraction] 96 % Josey Youssef MD Work Phone: [facility] 04-07-2025 09:27-0400 Systolic blood pressure 138 mm[Hg] Josey Youssef MD Work Phone: [facility] 09-11-2024 09:28-0500 Body height 165.1 cm Janel Hemmer PA Work Phone: [facility] 09-11-2024 09:28-0500 Body mass index (BMI) [Ratio] 34.71 kg/m2 Janel Hemmer PA Work Phone: [facility] 09-11-2024 09:28-0500 Body weight 94.62 kg Janel Hemmer PA Work Phone: [facility] 09-11-2024 09:28-0500 Diastolic blood pressure 84 mm[Hg] Janel Hemmer PA Work Phone: [facility] 09-11-2024 09:28-0500 Heart rate 82 /min Janel Hemmer PA Work Phone: [facility] 09-11-2024 09:28-0500 Respiratory rate 16 /min Janel Hemmer PA Work Phone: [facility] 09-11-2024 09:28-0500 SaO2% (BldA) [Mass fraction] 95 % Janel Hemmer PA Work Phone: [facility] 09-11-2024 09:28-0500 Systolic blood pressure 138 mm[Hg] Janel Hemmer PA Work Phone: [facility] 08-12-2024 08:33-0500 Body height 165.1 cm Marnie Oconnell NP Work Phone: [facility] 08-12-2024 08:33-0500 Body mass index (BMI) [Ratio] 33.48 kg/m2 Marnie Oconnell BENCH SHEAR OPERATOR Work Phone: [facility] 08-12-2024 08:33-0500 Body weight 91.26 kg Marnie Oconnell BENCH SHEAR OPERATOR Work Phone: [facility] 08-12-2024 08:33-0500 Diastolic blood pressure 84 mm[Hg] Marnie Oconnell BENCH SHEAR OPERATOR Work Phone: [facility] 08-12-2024 08:33-0500 Heart rate 101 /min Marnie Oconnell BENCH SHEAR OPERATOR Work Phone: [facility] 08-12-2024 08:33-0500 Respiratory rate 18 /min Marnie Oconnell BENCH SHEAR OPERATOR Work Phone: [facility] 08-12-2024 08:33-0500 SaO2% (BldA) [Mass fraction] 98 % Marnie Oconnell BENCH SHEAR OPERATOR Work Phone: [facility] 08-12-2024 08:33-0500 Systolic blood pressure 138 mm[Hg] Marnie Oconnell BENCH SHEAR OPERATOR Work Phone: [facility] 04-28-2024 08:30-0400 Body height 165.1 cm Janel Hemmer PA Work Phone: [facility] 04-28-2024 08:30-0400 Body mass index (BMI) [Ratio] 34.91 kg/m2 Janel Hemmer PA Work Phone: [facility] 04-28-2024 08:30-0400 Body weight 95.17 kg Janel Hemmer PA Work Phone: [facility] 04-28-2024 08:30-0400 Diastolic blood pressure 84 mm[Hg] Janel Hemmer PA Work Phone: [facility] 04-28-2024 08:30-0400 Heart rate 99 /min Janel Hemmer PA Work Phone: [facility] 04-28-2024 08:30-0400 Respiratory rate 16 /min Janel Hemmer PA Work Phone: [facility] 04-28-2024 08:30-0400 SaO2% (BldA) [Mass fraction] 93 % Janel GOLDMAN Work Phone: [facility] 04-28-2024 08:30-0400 Systolic blood pressure 124 mm[Hg] Janel GOLDMAN Work Phone: [facility] 04-14-2024 13:06-0400 Body height 165.1 cm Josey Youssef MD Work Phone: [facility] 04-14-2024 13:06-0400 Body mass index (BMI) [Ratio] 35.11 kg/m2 Josey Youssef MD Work Phone: [facility] 04-14-2024 13:06-0400 Body weight 95.71 kg Josey Youssef MD Work Phone: [facility] 04-14-2024 13:06-0400 Diastolic blood pressure 76 mm[Hg] Josey Youssef MD Work Phone: [facility] 04-14-2024 13:06-0400 Heart rate 84 /min Josey Youssef MD Work Phone: [facility] 04-14-2024 13:06-0400 SaO2% (BldA) [Mass fraction] 93 % Josey Youssef MD Work Phone: [facility] 04-14-2024 13:06-0400 Systolic blood pressure 132 mm[Hg] Josey Youssef MD Work Phone: [facility] 03-22-2024 09:24-0400 Body height 165.1 cm [facility] 03-22-2024 09:240400 Body mass index (BMI) [Ratio] 35.2 kg/m2 [facility] 03-22-2024 09:24-0400 Body temperature 98 [degF] [facility] 03-22-2024 09:24-0400 Body weight 96.17 kg [facility] 03-22-2024 09:24-0400 Diastolic blood pressure 65 mm[Hg] [facility] 03-22-2024 09:24-0400 Heart rate 74 /min [facility] 03-22-2024 09:24-0400 Respiratory rate 18 /min [facility] 03-22-2024 09:24-0400 SaO2% (BldA) [Mass fraction] 94 % [facility] 03-22-2024 09:24-0400 Systolic blood pressure 132 mm[Hg] [facility] Encounters Encounter Date Encounter Type Care Provider Facility Start: 04-23-2025 End: 04-23-2025 Clinisync Result Encounter Generic External Data Provider [facility] Unsolicited Start: 04-23-2025 End: 04-23-2025 Clinisync Result Encounter Generic External Data Provider [facility] External [facility] Unsolicited Start: 04-07-2025 End: 04-07-2025 Office outpatient visit 25 minutes Josey Youssef MD Work Phone: [facility] [place] [facility] Comment on above: Spinal stenosis of l [...] [place] [facility] Comment on above: Anxiety Start: 11-23-2024 End: [...] 09-11-2024 End: 09-12-2024 External Result Encounter Janel Hernandez Vel PA Work Phone: [facility] Unsolicited Start: 09-11-2024 End: 09-11-2024 Office outpatient visit 15 minutes Janel Hernandez Vel PA Work Phone: [facility] Comment on above: Herpes zoster withou t complication (Primary Dx); Former smoker; Diabetic nephropathy associated with type 2 diabetes mellitus (HCC) (CMS/HCC) Start: 09-11-2024 End: 09-11-2024 ambulatory JANEL Hernandez VEL Not Available Start: 08-12-2024 End: 08-12-2024 Bamboo flowsheet Marnie Oconnell BENCH SHEAR OPERATOR Work Phone: [facility] Start: 08-12-2024 End: 08-12-2024 Bamboo flowsheet Marnie Oconnell BENCH SHEAR OPERATOR Work Phone: [facility] Start: 08-12-2024 End: 08-12-2024 Office outpatient visit 25 minutes Marnie Oconnell BENCH SHEAR OPERATOR Work Phone: [facility] Comment [...] Start: 04-28-2024 End: 04-28-2024 Bamboo flowsheet Janel GOLDMAN Work Phone: [facility] Start: 04-28-2024 End: 04-28-2024 Bamboo flowsheet Janel GOLDMAN Work Phone: [facility] Start: 04-28-2024 [...] Hot flashes due to menopause; Hypertriglyceridemia (CMS/HCC); custodial (current) use of inhaled steroids; Migraine without aura and without status migrainosus, not intractable (CMS/HCC); Piriformis syndrome of left side; Psoriasis (CMS/HCC); Pure hypercholesterolemia (CMS/HCC); Smoker; Surgical menopause; Need for vaccination Start: 04-28-2024 End: 04-28-2024 ambulatory JANEL CROWDER Not Available Start: 04-14-2024 End: 04-14-2024 Bamboo flowsnika Youssef MD Work Phone: [facility] Start: 04-14-2024 End: 04-14-2024 Fani Youssef MD Work Phone: [facility] [...] without long-term current use of insulin (CMS/HCC); Morbid (severe) obesity due to excess calories (CMS/HCC); Body mass index (BMI) 37.0-37.9, adult; Chronic obstructive pulmonary disease, unspecified (CMS/HCC); Atherosclerosis of aorta (CMS/HCC); Pure hypercholesterolemia (CMS/HCC); Migraine without aura and without status migrainosus, not intractable (CMS/HCC); Depressive disorder (CMS/HCC); Type 2 diabetes mellitus without complication, without long-term current use of insulin (CMS/HCC); Anxiety; Gastroesophageal reflux disease without esophagitis Start: 04-14-2024 End: 04-14-2024 ambulatory JOSEY YOUSSEF Not Available Start: 03-22-2024 End: 03-22-2024 ambulatory [facility] Work Phone: Start: 03-22-2024 End: 03-22-2024 Patient encounter procedure [facility] [place] Work Phone: Start: 02-26-2023 End: 02-27-2023 ambulatory Yamile Lopez MD Facility: [facility] Start: 02-05-2023 End: 02-06-2023 ambulatory Yamile Lopez MD Facility: [facility] Start: 01-22-2023 End: 01-23-2023 ambulatory Yamile Lopez MD Facility:[facility] Start: 01-08-2023 End: 01-09-2023 ambulatory Yamile Lopze MD Facility:[facility] Start: 12-27-[address] JOSEY YOUSSEF Facility: [...] laboratory examination DR AMELIA WATTS . [facility] Start: 03-07-2022 End: 03-07-[address] [...] 01-17-2022 End: 01-17-[address] JOSEY YOUSSEF Facility: Procedures Date Procedure Procedure Detail Performing Clinician Start: 04-23-2025 XR LUMBAR SPINE MIN 4V Generic External Data Provider Start: 04-23-2025 XR SACROILIAC JOINT Generic External Atul a Provider Start: 04-07-2025 Hemoglobin glycosylated a1c Josey Youssef [...] 12-03-2030 Screening for malignant neoplasm of colon [facility] Start: 09-11-2025 Urine screening for protein Diabetes: Urine Protein Screening [facility] Start: 07-13-2025 End: 07-13-2025 Patient encounter procedure 07/13/2025 8:15 AM EST Office Visit [facility] [address] [facility] [address] [place] [address] Josey Youssef MD [address] [facility] [address] [place] [address] [facility] Start: 07-07-2025 Hemoglobin A1c measurement Diabetes: Hemoglobin A1C [facility] Start: 04-28-2025 Urine screening for protein Diabetes: Urine Protein Screening [facility] Start: 04-20-2025 End: 04-20-2025 Patient encounter procedure [facility] Start: 04-18-2025 Screening for malignant neoplasm of breast Mammogram [facility] Start: 03-30-2025 Influenza vaccination [facility] Start: 01-13-2025 Hemoglobin A1c measurement Diabetes: Hemoglobin A1C [facility] Start: 10-13-2024 End: 10-13-2024 Patient encounter procedure 10/13/2024 9:00 AM EDT Office Visit [facility] [address] [place] [address] [place] [address] Josey Youssef MD [address] [place] [address] [place] [address] [facility] Start: 09-11-2024 End: 09-11-2025 Microalbumin/Creatinin e panel in random Urine Microalbumin / creatinine urine ratio Lab Routine Diabetic nephropathy associated with type 2 diabetes mellitus (HCC) (CMS/HCC) Expected: 09/11/2024 (Approximate), Expires: 09/11/2025 [facility] Work Phone: Comment on above: Expected: 09/11/2024 (Approximate), Expi res: 09/11/2025 Start: 09-11-2024 End: 09-11-2024 Patient encounter procedure 09/11/2024 9:30 AM EST Office Visit [facility] [address] [place] [address] [place] [address] Janel Crowder PA [address] [place] [address] [place] [address] Arrived [facility] Comment on above: Arrived Start: 08-12-2024 End: 08-12-2024 Patient encounter procedure [facility] Comment on above: Arrived Start: 07-14-2024 Hemoglobin A1c measurement Diabetes: Hemoglobin A1C [facility] Start: 04-28-2024 End: 04-28-2024 Patient encounter procedure 04/28/2024 8:30 AM EDT Office Visit [facility] [address] [place] [address] [place] [address] Janel Crowder PA [address] [place] [address] [place] [address] Arrived [facility] Comment on above: Arrived Start: 04-14-2024 End: 04-14-2025 CBC panel - Blood by Automated count CBC Lab Routine Essential hypertension (CMS/HCC) Type 2 diabetes mellitus with other specified complication, without long-term current use of insulin (CMS/HCC) Diabetic nephropathy associated with type 2 diabetes mellitus (HCC) (CMS/HCC) Pure hypercholesterolemia (CMS/HCC) Expected: 04/14/2024 (Approximate), Expires: 04/14/2025 [facility] Comment on above: Expected: 04/14/2024 (Approximate), Expi res: 04/14/2025 Start: 04-14-2024 End: 04-14-2025 Comprehensive metabolic 2000 panel - Serum or Plasma Comprehensive metabolic panel Lab Routine Essential hypertension (CMS/HCC) Type 2 diabetes mellitus with other specified complication, without long-term current use of insulin (CMS/HCC) Diabetic nephropathy associated with type 2 diabetes mellitus (HCC) (CMS/HCC) Pure hypercholesterolemia (CMS/HCC) Expected: 04/14/2024 (Approximate), Expires: 04/14/2025 [facility] Comment on above: Expected: 04/14/2024 (Approximate), Expi res: 04/14/2025 Start: 04-14-2024 End: 04-14-2025 Lipid 1996 panel - Serum or Plasma Lipid panel Lab Routine Essential hypertension (CMS/HCC) Type 2 diabetes mellitus with other specified complication, without long-term current use of insulin (CMS/HCC) Diabetic nephropathy associated with type 2 diabetes mellitus (HCC) (CMS/HCC) Pure hypercholesterolemia (CMS/HCC) Expected: 04/14/2024 (Approximate), Expires: 04/14/2025 [facility] Comment on above: Expected: 04/14/2024 (Approximate), Expi res: 04/14/2025 Start: 04-14-2024 End: 06-14-2025 MG Breast - bilateral Screening Bilateral screening mammogram Imaging Routine Encounter for screening mammogram for malignant neoplasm of breast Expected: 04/14/2024, Expires: 06/14/2025 [facility] Work Phone: Comment on above: Expected: 04/14/2024, Expires: Start: 04-14-2024 End: 04-14-2024 Patient encounter procedure 04/14/2024 1:00 PM EDT Office Visit [facility] [address] [facility] [address] [place] [id number] Josey Youssef MD [address] [facility] [address] [place] [address] Arrived [facility] Comment on above: Arrived Start: 04-09-2024 Urine screening for protein Diabetes: Urine Protein Screening [facility] Start: 03-30-2024 Influenza vaccination Influenza Vaccine (#1) [facility] Start: 01-23-2024 Hemoglobin A1c measurement Diabetes: Hemoglobin A1C [facility] Start: 12-09-2022 Screening for malignant neoplasm of breast Mammogram [facility] Start: 1979 Glaucoma screening Diabetes: Retinopathy Screening [facility] Start: 1969 Screening for malignant neoplasm of colon [facility] Immunizations Immunization Date Immunization Notes Care Provider Fa cility 04-28-2024 zoster vaccine-recombinant adjuvanted (Shingrix) 50 MCG/0.5ML vaccine Janel GOLDMAN Work Phone: [facility] 04-28-2024 pneumococcal conjuga te 20-valent (Prevnar 20) 0.5 ML vaccine Janel GOLDMAN Work Phone: [facility] 06-15-2022 influenza, injectabl e, quadrivalent, preservative free Josey Youssef MD Work Phone: [facility] 06-15-2022 Moderna Bivalent Hernández ster Vaccination Josey Youssef MD Work Phone: [facility] 06-15-2022 SARS-COV-2 (COVID-19 ) vaccine, mRNA, spike protein, LNP, bivalent, preservative free, 30 mcg/0.3 mL dose, maria esther-sucrose formulation Josey Youssef MD Work Phone: [facility] 06-15-2022 influenza virus vacc ine, unspecified formulation Josey Youssef MD Work Phone: [facility] 07-11-2021 Influenza, injectabl e, Madin Ayana Canine Kidney, preservative free, quadrivalent Josey Youssef MD Work Phone: [facility] Healthcare Payers Date Payer Category Payer Private Health Insurance [facility] [id number] 2022 Unknown 1969 Unknown [id number] 2.16.840.1.913619.3.579. 2.593 1969 Unknown [id number] 2.16.840.1.767678.3.579. 2.593 1969 Unknown [id number] 2.16.840.1.806192.3.579. 2.593 1969 Unknown [id number] 2.16.840.1.908737.3.579. 2.593 1969 Unknown [id number] 2.16.840.1.002900.3.579. 2.593 1969 Unknown [id number] 2.16.840.1.865404.3.579. 2.593 1969 Unknown [id number] 2.16.840.1.795965.3.579. 2.593 1969 Unknown [id number] 2.16.840.1.992183.3.579. 2.593 1969 Unknown [id number] 2.16.840.1.404681.3.579. 2.593 1969 Unknown [id number] 2.16.840.1.488162.3.579. 2.593 1969 Unknown [id number] 2.16.840.1.014681.3.579. 2.593 1969 Unknown [id number] 2.16.840.1.326480.3.579. 2.593 1969 Unknown [id number] 2.16.840.1.155956.3.579. 2.593 1969 Unknown [id number] 2.16.840.1.836551.3.579. 2.593 1969 Unknown [id number] 2.16.840.1.020220.3.579. 2.196 1969 Unknown [id number] 2.16.840.1.824052.3.579. 2.196 1969 Unknown [id number] 2.16.840.1.373642.3.579. 2.196 1969 Unknown [id number] 2.16.840.1.999763.3.579. 2.196 1969 Unknown [id number] 2.16.840.1.464408.3.579. 2.1259 1969 Unknown [id number] 2.16.840.1.657881.3.579. 2.1259 1969 Unknown [id number] 2.16.840.1.508271.3.579. 2.1259 1969 Unknown [id number] 2.16.840.1.368195.3.579. 2.1259 1969 Unknown [id number] 2.16.840.1.477481.3.579. 2.1259 1969 Unknown [id number] 2.16.840.1.237503.3.579. 2.9 1959 Unknown [id number] 1959 Unknown [id number] Social History Date Type Detail [facility] Start: 1970 Sex Assigned At Female F [facility] Start: 01-01-2023 End: 04-28-2024 Tobacco smoking status NHIS Smokes tobacco daily [facility] Work Phone: [...] mon thly or less, caffeine yes coffee,soda [facility] Start: 1970 Sex assigned at Not on file [facility] Start: 09-11-2024 Tobacco smoking stat us [facility] Ex-smoker [facility] Goals Date Patient Goal Desired Activity /State Personal health goal Functional Status Date Assessment Result Facility 04-07-2025 Patient Health Quest ionnaire 2 item (PHQ-2) [Reported] [facility] Clinical Notes 12-22-2020 to 04-07-2025 Josey [...] not included. HPI Diabetes Additional comments: Last 5. Last edited by Elysia Escobar MA on 04/07/2025 7:17 AM. Subjective Patient ID: Dhara Dallas is a 54 y.o. female who presents for Diabetes (Last 5.7). Pt stated that she has been getting [...] months of each other Pt states the lilliam is not working for her anymore not [...] being taken. She does not see a outbound telemarketer. Over the past 2 weeks, how often [...] tablet 3 montelukast (Singulair) 10 MG tablet nmtquoqmachr-pcic-hgzcxrgp-folic acid (Centrum Silver, geriatric,) tablet as directed Orally nystatin (Mycostatin) [id number] UNIT/ML suspension OLANZapine (ZyPREXA) 10 MG tablet [...] APPENDECTOMY 1985 SECTION, LOW TRANSVERSE 1994 CHOLECYSTECTOMY 2008 COLONOSCOPY [...] Anxiety Meds F/U. documented in this encounter [facility] 09-11-2024 History of Present illness Narrative [...] tablet 3 montelukast (Singulair) 10 MG tablet idqbfpgtrbip-ejfb-fbnoawne-folic acid (Centrum Silver, geriatric,) tablet as directed Orally nystatin (Mycostatin) [id number] UNIT/ML suspension OLANZapine (ZyPREXA) 10 MG tablet [...] associated with type 2 diabetes mellitus (HCC) ([facility]/HCC) - Microalbumin / creatinine urine ratio; Future Urine sample obtained today for Microalbumin testing. Follow up for Appointment As Scheduled. documented in this encounter [facility] 08-12-2024 History of Present illness Narrative [...] CAPSULE BY MOUTH DAILY 100 capsule 1 Weotwdnoubk-Ygqisreve-Ebsxmr (Trelegy Ellipta) 100-62.5-25 MCG/ACT aerosol powder Inhale [...] tablet 1 montelukast (Singulair) 10 MG tablet pxomtywwnoly-orgk-jsyrbppl-folic acid (Centrum Silver, geriatric,) tablet as directed Orally nystatin (Mycostatin) [id number] UNIT/ML suspension OLANZapine (ZyPREXA) 10 MG tablet [...] APPENDECTOMY 1985 SECTION, LOW TRANSVERSE 1994 CHOLECYSTECTOMY 2008 COLONOSCOPY [...] 2 diabetes mellitus with other specified complication (CMS/[facility]) We discussed today, the importance of [...] instructions. Type 2 diabetes mellitus without complications ([facility]) We discussed today, the importance of [...] Type 2 diabetes mellitus with diabetic nephropathy ([facility]) We discussed today, the importance of [...] Morbid (severe) obesity due to excess calories ([facility]) Discussed goal of BMI < 30. Advised [...] follow-ups on file. documented in this encounter [facility] 06-18-2024 Telephone encounter Note OARRS reviewed, Rx sent into patient's pharmacy. [facility] 06-18-2024 Miscellaneous Notes OARRS reviewed, Rx sent into patient's pharmacy. documented in this encounter [facility] 04-28-2024 History of Present illness Narrative Images from [...] CAPSULE BY MOUTH DAILY 100 capsule 1 Jlbssteynhp-Izsrakieb-Hjxjma (Trelegy Ellipta) 100-62.5-25 MCG/ACT aerosol powder Inhale [...] tablet 1 montelukast (Singulair) 10 MG tablet vfypkqetpymk-tdqo-ovvhafgu-folic acid (Centrum Silver, geriatric,) tablet as directed Orally nystatin (Mycostatin) [id number] UNIT/ML suspension OLANZapine (ZyPREXA) 10 MG tablet [...] Anemia Anxiety Cancer (CMS/HCC) dysplasia cancer Depression ([facility]) Gallbladder disease H/O hemorrhoids History of Doppler ultrasound 10/07/2020 U/S venous dopplers negative History of MRI 12/15/2022 MRI Moderate-marked foramen narrowing L3-L4 through L5-S1 predominantly due to degenerative facet arhropathy, but mild disc bulging contributes as well. Projecting from left kidney is a 1.6 cm complex cyst versus mass. IBD (inflammatory bowel disease) Irritable bowel disease Respiratory failure with hypoxia ([facility]) 01/11/2023 Sepsis ([facility]) 01/11/2023 Past Surgical History: Procedure Laterality Date APPENDECTOMY 1985 SECTION, LOW TRANSVERSE 1993 CHOLECYSTECTOMY [address] Fletcher HEMORRHOIDECTOMY HYSTERECTOMY 2004 [...] time. Severe persistent asthma with acute exacerbation ([facility]) This is a chronic medical condition that is stable since last assessment. No changes in treatment are suggested at this time. COPD with chronic bronchitis ([facility]) This is a chronic medical condition that is stable since last assessment. No changes in treatment are suggested at this time. Essential hypertension ([facility]) Patient's blood pressure is currently well controlled. [...] time. Stage 3a chronic kidney disease (HCC) ([facility]) This is a chronic medical condition [...] associated with type 2 diabetes mellitus (HCC) ([facility]) Will continue to monitor with routine HgbA1c. Morbid (severe) obesity due to excess calories ([facility]) Encouraged portion control, decrease simple sugars and carbohydrates, gradually increase activity level. Aim for continued gradual steady weight loss. Type 2 diabetes mellitus with other specified complication, without long-term current use of insulin ([facility]) Will continue to monitor with routine HgbA1c. Type 2 diabetes mellitus without complication, without long-term current use of insulin ([facility]) - semaglutide (Ozempic, 1 MG/DOSE,) 2 MG/1.5ML solution pen-injector; Inject 1 mg under the skin 1 (one) time per week Will continue to monitor with routine HgbA1c. Adjustment disorder with anxiety (CMS/HCC) This is a chronic medical condition that is stable since last assessment. No changes in treatment are suggested at this time. Seasonal allergic rhinitis due to pollen This is a chronic medical condition that is stable since last assessment. No changes in treatment are suggested at this time. Depressive disorder (CMS/HCC) This is a chronic [...] treatment are suggested at this time. Hypertriglyceridemia (CMS/HCC) This is a chronic medical condition that is stable since last assessment. No changes in treatment are suggested at this time. Will continue to monitor with routine labs. 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 documented in this encounter [facility] 04-14-2024 History of Present illness Narrative [...] being taken. She does not see a outbound telemarketer. Current Outpatient Medications on File Prior to [...] CAPSULE BY MOUTH DAILY 100 capsule 1 Rmiakpwsbmz-Crrglezni-Nltpio (Trelegy Ellipta) 100-62.5-25 MCG/ACT aerosol powder Inhale 1 puff in the morning. 1 each 11 gabapentin (Neurontin) 300 MG capsule loratadine (Claritin) 10 MG tablet 1 (one) time each day at the same time. metFORMIN (Glucophage) 500 MG tablet TAKE ONE TABLET BY MOUTH DAILY WITH A MEAL 100 tablet 1 uvaubrmeolwz-xdam-eymcvgbg-folic acid (Centrum Silver, geriatric,) tablet as directed Orally nystatin (Mycostatin) [id number] UNIT/ML suspension OLANZapine (ZyPREXA) 10 MG tablet [...] 10/12/2024) for Diabetes. documented in this encounter [facility] 12-15-2022 Note PROCEDURE: XR SACRUM _COCCYX [...] BRANDON CRUZ Date: 2022-12-15 08:23 [facility] 09-07-2022 Note CONSULTATION CONSULTATION DATE: 09/07/2022 HISTORY [...] indicated. Patient agrees with this plan. [facility] 09-07-2022 Note CONSULTATION PROCEDURE DATE: 09/07/2022 [...] be followed up in the office. [facility] 06-01-2022 Note CONSULTATION CONSULTATION DATE: 06/01/2022 [...] three months' time unless otherwise indicated. [facility] 06-01-2022 Note CONSULTATION PROCEDURE DATE: 06/01/2022 [...] be followed up in the office. [facility] 04-06-2022 Note CONSULTATION PROCEDURE DATE: 04/06/2022 [...] be followed up in the clinic. [facility] 04-06-2022 Note CONSULTATION CONSULTATION DATE: 04/06/2022 [...] to continue with her multivitamin regimen. [facility] 01-26-2022 Note CONSULTATION CONSULTATION DATE: 01/26/2022 [...] be followed up in the office post-procedure. [facility] Signed and Approved by: GRANT MCGILL . 02/02/2022 16:26:00 [facility] 12-22-2020 Note HNO ID: [id number] Author: Naina Oliva MD Service: ? Author [...] No history of dysuria, frequency or incontinence PROJECT SPECIALIST: Negative for abnormal vaginal bleeding, abnormal vaginal [...] It is unl (more content not included)... [facility] Evaluation note No assessment inform ation [facility] Work Phone: Evaluation note Diagnosis Morbid obesity [...] complication, without long-term current use of insulin (CMS/[facility]) Anxiety Anxiety state, unspecified Gastroesophageal reflux disease without esophagitis Esophageal reflux Anxiety Anxiety state, unspecified documented in this encounter [facility] HealthcareEvaluation note* Diagnosis Diabetic nephropathy associated with type 2 diabetes mellitus (HCC) (CMS/HCC)- Primary Essential hypertension (CMS/HCC) Unspecified essential hypertension Encounter for screening mammogram for malignant neoplasm of breast Type 2 diabetes mellitus with other specified complication, without long-term current use of insulin ([facility]) Morbid (severe) obesity due to excess calories (CMS/[facility]) Body mass index (BMI) 37.0-37.9, adult [...] esophagitis Esophageal reflux documented in this encounter [facility] HealthcareEvaluation note* Diagnosis Morbid obesity (CMS/HCC)- [...] complication, without long-term current use of insulin ([facility]) Morbid (severe) obesity due to excess calories (CMS/HCC) Body mass index (BMI) 37.0-37.9, adult Chronic obstructive pulmonary disease, unspecified (CMS/HCC) Atherosclerosis of aorta (CMS/HCC) Atherosclerosis of aorta Pure hypercholesterolemia (CMS/HCC) Pure hypercholesterolemia Migraine without aura and without status migrainosus, not intractable (CMS/HCC) Depressive disorder ([facility]/HCC) Depressive disorder, not elsewhere classified Type 2 diabetes mellitus without complication, without long-term current use of insulin ([facility]) Anxiety Anxiety state, unspecified Gastroesophageal reflux disease without esophagitis Esophageal reflux Anxiety Anxiety state, unspecified documented in this encounter [facility] HealthcareEvaluation note* Diagnosis Wellness examination- Primary Daytime [...] with type 2 diabetes mellitus (HCC) (CMS/HCC) Morbid (severe) obesity due to excess calories (CMS/HCC) Type 2 diabetes mellitus with other specified complication, without long-term current use of insulin (CMS/HCC) Type 2 diabetes mellitus without complication, without long-term current use of insulin (CMS/HCC) Adjustment disorder with anxiety (CMS/HCC) Adjustment disorder with anxiety Seasonal allergic rhinitis due to pollen Depressive disorder (CMS/HCC) Depressive disorder, not elsewhere classified Dizziness Dizziness and giddiness History of hysterectomy Acquired absence of both cervix and uterus Hot flashes due to menopause Hypertriglyceridemia (CMS/HCC) Pure hyperglyceridemia custodial (current) use of inhaled steroids Migraine without [...] pulmonary disease (CMS/HCC) documented in this encounter [facility] HealthcareEvaluation note* Diagnosis Morbid obesity (CMS/HCC)- [...] mellitus (HCC) (CMS/HCC) documented in this encounter [facility] HealthcareEvaluation note* Diagnosis Morbid obesity (CMS/HCC)- Primary [...] with type 2 diabetes mellitus (HCC) (CMS/HCC) Tremors of nervous system Anxiety Anxiety state, unspecified [facility]* Diagnosis Morbid obesity ([facility])- Primary Morbid obesity Type 2 diabetes mellitus without complication, without long-term current use of insulin ([facility]) Essential hypertension Unspecified essential hypertension Smoker Tobacco use disorder Dizziness Dizziness and giddiness Migraine without aura and without status migrainosus, not intractable Acute exacerbation of chronic obstructive pulmonary disease (HCC) Obstructive chronic bronchitis with exacerbation Nicotine dependence, cigarettes, with unspecified nicotine-induced disorders- Primary Type 2 diabetes mellitus with other specified complication, without long-term current use of insulin ([facility]) Adjustment disorder with anxiety Adjustment disorder with anxiety Migraine without aura and without status migrainosus, not intractable Pure hyperglyceridemia (E78.1) Pure hyperglyceridemia Stage 3a chronic kidney disease ([facility]) Diabetic nephropathy associated with type 2 diabetes mellitus ([facility])- Primary Essential hypertension Unspecified essential hypertension Encounter for screening mammogram for malignant neoplasm of breast Type 2 diabetes mellitus with other specified complication, without long-term current use of insulin ([facility]) Morbid (severe) obesity due to excess calories ([facility]) Body mass index (BMI) 37.0-37.9, adult Chronic obstructive pulmonary disease, unspecified ([facility]) Atherosclerosis of aorta Pure hypercholesterolemia Pure hypercholesterolemia Migraine without aura and without status migrainosus, not intractable Depressive disorder Depressive disorder, not elsewhere classified Anxiety Anxiety state, unspecified Gastroesophageal reflux disease without esophagitis Esophageal reflux Essential hypertension- Primary Unspecified essential hypertension Type 2 diabetes mellitus with diabetic nephropathy, without long-term current use of insulin ([facility]) Diabetic nephropathy associated with type 2 diabetes mellitus ([facility]) Anxiety Anxiety state, unspecified documented [facility]* Diagnosis Morbid obesity ([facility])- Primary Morbid obesity Type 2 diabetes mellitus without complication, without long-term current use of insulin ([facility]) Essential hypertension Unspecified essential hypertension Smoker Tobacco use disorder Dizziness Dizziness and giddiness Migraine without aura and without status migrainosus, not intractable Acute exacerbation of chronic obstructive pulmonary disease (HCC) Obstructive chronic bronchitis with exacerbation Nicotine dependence, cigarettes, with unspecified nicotine-induced disorders- Primary Type 2 diabetes mellitus with other specified complication, without long-term current use of insulin ([facility]) Adjustment disorder with anxiety Adjustment disorder with anxiety Migraine without aura and without status migrainosus, not intractable Pure hyperglyceridemia (E78.1) Pure hyperglyceridemia Stage 3a chronic kidney disease ([facility]) Diabetic nephropathy associated with type 2 diabetes mellitus (HCC)- Primary Essential hypertension Unspecified essential hypertension Encounter for screening mammogram for malignant neoplasm of breast Type 2 diabetes mellitus with other specified complication, without long-term current use of insulin (HCC) Morbid (severe) obesity due to excess calories ([facility]) Body mass index (BMI) 37.0-37.9, adult [...] Unspecified essential hypertension documented in this encounter [facility] Healthcare Summary Purpose Family History Relationship Condition Age at Onset Recorded Date/T lance father Malignant neoplasm Unknown mother Malignant neoplasm Unknown Diabetes mellitus Unknown Heart disease Unknown Hypertension Unknown Advance Directives Advance Directive Response Recorded Date/ Time Advance Directives No March 22, 2024 9:11am Chief Complaint and Reason for Visit Chief Complaint Right eye irritation , redness Additional Source Comments INFORMATION SOURCE (unrecogn ized section and content) DATE CREATED AUTHOR 08/30/2021 [facility] DATE CREATED AUTHOR AUTHOR'S ORGANIZ ATION 12/15/2021 [facility] dical Specialist DATE CREATED AUTHOR AUTHOR'S ORGANIZ ATION 01/05/2023 [facility] DATE CREATED AUTHOR AUTHOR'S ORGANIZ ATION 03/20/2023 [facility] DATE CREATED AUTHOR AUTHOR'S ORGANIZ ATION 09/14/2024 [facility] DATE CREATED AUTHOR AUTHOR'S ORGANIZ ATION 04/09/2025 [facility] dical Specialists EPIC Care Teams (unrecognized sec tion and content) Team Status: Active Member Role Status Dates Josey Youssef MD Primary Care Provider Active Team Status: Inactive Member Role Status Dates Josey Youssef MD Primary Care Provider Active S tart: March 22, 2024 End: March 22, 2024 Adeline Sampson APRN Attending Provider Active Start: March 22, 2024 End: March 22, 2024 Entry Level Project Engineer Relationship Specialty Start Date End Date Josey Youssef MD [address] [place] [address] PCP - General Family Medicine 12/21/22 Entry Level Project Engineer Relationship Specialty Start Date End Date Josey Youssef MD [address] [facility] [address] [place] [address] PCP - General Family Medicine 12/21/22 Entry Level Project Engineer Relationship Specialty Start Date End Date Josey Youssef MD [address] [facility] [address] [place] [address] PCP - General Family Medicine 12/21/22 Entry Level Project Engineer Relationship Specialty Start Date End Date Josye Youssef MD [address] [facility] [address] [place] [address] PCP - General Family Medicine 12/21/22 Entry Level Project Engineer Relationship Specialty Start Date End Date Josey Youssef MD [address] [place] [address] PCP - General Family Medicine 12/21/22 Entry Level Project Engineer Relationship Specialty Start Date End Date Josey Youssef MD [address] [place] [address] PCP - General Family Medicine 12/21/22 Entry Level Project Engineer Relationship Specialty Start Date End Date Josey Youssef MD [address] [place] [address] PCP - General Family Medicine 12/21/22 Entry Level Project Engineer Relationship Specialty Start Date End Date Josey Youssef MD [address] [place] [address] PCP - General Family Medicine 12/21/22 Entry Level Project Engineer Relationship Specialty Start Date End Date Josey Youssef MD [address] [place] [address] PCP - General Family Medicine 12/21/22 Entry Level Project Engineer Relationship Specialty Start Date End Date Josey Youssef MD [address] [facility] [address] [place] [address] PCP - General Family Medicine 12/21/22 Entry Level Project Engineer Relationship Specialty Start Date End Date Josey Youssef MD [address] [facility] [address] [place] [address] PCP - General Family Medicine 12/21/22 Entry Level Project Engineer Relationship Specialty Start Date End Date Josey Youssef MD [address] [facility] [address] [place] [address] PCP - General Family Medicine 12/21/22 Entry Level Project Engineer Relationship Specialty Start Date End Date Josey Youssef MD [address] [facility] [address] [place] [address] PCP - General Family Medicine 12/21/22 Entry Level Project Engineer Relationship Specialty Start Date End Date Josey Youssef MD [address] [place] [address] PCP - General Family Medicine 12/21/22 Entry Level Project Engineer Relationship Specialty Start Date End Date Josey Youssef MD [address] [facility] [address] [place] [address] PCP - General Family Medicine 12/21/22 Goals [...] BE BASED ON THE PRIMARY CLINICAL RECORDS. [employer] [facility] provides no warranty or guarantee of the accuracy or completeness of information in this document.
[2025-05-11 07:32] VITALS: BP 147/82; PULSE 78; TEMP 36.7; O2SAT 97
[2025-05-11 08:17] VITALS: BP 142/70; PULSE 75; O2SAT 95
[2025-05-11 08:18] VITALS: BP 149/73; PULSE 73; O2SAT 95
[2025-05-11] MEDS: BUPIVACAINE HCL 0.25% PF 25 MG/10 ML VIAL 4 ML INJ (08:19)
[2025-05-11] MEDS: METHYLPREDNISOLONE ACETATE 40 MG/ML VIAL 80 MG INJ (08:20)
[2025-05-11] MEDS: IOHEXOL 240 MG/ML - 10 ML VIAL 24 MG INJ (08:20)
[2025-05-11] MEDS: LIDOCAINE HCL 2% 400 MG/20 ML MDV INJ (08:20)
--- NOTE | 2025-05-11 08:21 | W.PM.PROCNOT ---
Date of procedure: 05/11/25 Pre-op diagnosis: Pain due to bilateral sacroiliitis Post-op diagnosis: same as pre-op Procedure: Procedure: Bilateral sacroiliac joint injection Medications: Bupivacaine 0.25% 4cc, depomedrol 40mg x2 After informed consent was obtained, the patient was brought to the medical procedure unit and placed in the prone position, when a timeout was completed verifying correct patient, procedure, site, positioning, implant, and/or special equipment.? The skin overlying the area was prepped and draped in standard sterile fashion using alcohol.? A 25-gauge needle was inserted towards the left sacroiliac joint under direct fluoroscopic imaging.? Needle tip was advanced until the joint was encountered.? We instilled a total of 2 mL of solution.? The same procedure was then completed on the right side.? Postoperatively needles were removed.? The patient tolerated the procedure well without complication.? The patient reported reduction in pain symptoms postoperatively. Anesthesia: Local Surgeon: Yamile Lopez Pathology: none sent Condition: stable Disposition: no change
== END 2025-05-11 08:24 | disposition home or self-care (01) ==
LOC: SURGOUT 07:20
PROVIDERS: PCP Family Medicine; Visit Provider Anesthesiology
DX: M46.1 Sacroiliitis, not elsewhere classified (principal)
CPT/HCPCS: 27096; J0665; J1010; Q9966

== ENCOUNTER 2025-05-21 07:55 | Outpatient (OUT) | payer OTHER, SELFPAY ==
--- OUTSIDE RECORDS SUMMARY | 2025-05-21 07:58 | XMS_ITS | Encounter Summary ---
Author Organization [facility] Address [address] [place] [address] Care Team Providers Care Gelatin Powder Mixer Name Role Phone Josey Gonsalez MD Primary Care Provider [phone] Reason for Visit * ReasonCommentsMed Refill Encounter Details DateTypeDepartmentCare Team (Latest Contact Info)Axuecolefoe98/20/2025Refill [facility] [place] [facility] [address] [place] [phone] Josey Gonsalez MD [address] [place] [address] Tremors of nervous system; Anxiety; Migraine without aura and without status migrainosus, not intractable Social History Tobacco UseTypesPacks/DayYears UsedDateSmoking Tobacco: KfvjczXncnaedlvb075 Started: 1984Smokeless Tobacco: NeverAlcohol UseStandard Drinks/WeekCommentsYes0 (1 standard drink = 0.6 oz pure alcohol)1-2 drinks monthly or less, caffeine yes coffee,sodaSocial Connection and Isolation PanelAnswerDate RecordedIn a typical week, how many times do you talk on the phone with family, friends, or neighbors?Patient slyxdljy03/25/2024How often do you get together with friends or relatives?Patient jjudwbup41/25/2024How often do you attend restoration or samaritan services?Patient eftqtglv46/25/2024Do you belong to any clubs or organizations such as restoration groups, unions, fraternal or athletic groups, or school groups?Patient vbbfkiyl20/25/2024How often do you attend meetings of the clubs or organizations you belong to?Patient whyrxabr89/25/2024re you , , , , never , or living with a partner? 10/22/2023UDIT-CAnswerDate RecordedQ1: How often do you have a drink containing alcohol?Patient nqemqunu12/25/2024Q2: How many drinks containing alcohol do you have on a typical day when you are drinking?Patient rpytyweh18/25/2024Q3: How often do you have six or more drinks on one occasion?Patient ebrwmxij83/25/2024 Overall Financial Resource Strain (CARDIA)AnswerDate RecordedHow hard is it for you to pay for the very basics like food, housing, medical care, and heating? Patient /25/2024HQ-2AnswerDate RecordedPatient Health Questionnaire-2 Hsfer075Hunger Vital SignAnswerDate RecordedWithin the past 12 months, you worried that your food would run out before you got the money to buymore. Patient btqhncib13/25/2024Within the past 12 months, the food you bought just didn't last and you didn't have money to get more.Patient zopyekrr34/25/2024 PRAPARE - TransportationAnswerDate RecordedIn the past 12 months, has lack of transportation kept you from medical appointments or from getting medications?No 10/22/2023In the past 12 months, has lack of transportation kept you from meetings, work, or from getting things needed for daily living?No10/22/2023 Housing Stability Vital SignAnswerDate RecordedIn the last 12 months, was there a time when you were not able to pay the mortgage or rent on time?No10/22/2023In the last 12 months, how many places have you lived?In the last 12 months, was there a time when you did not have a steady place to sleep or slept in ashelter (including now)?No10/22/2023CommentsUnknownSex and Gender InformationValueDate RecordedSex Assigned at BirthNot on fileLegal SexFemale 10/11/2022 7:00 PM EDTGender IdentityNot on fileSexual OrientationNot on file documented as of this encounter Plan of Treatment DateTypeDepartmentCare Team (Latest Contact Info)Uftgdqzhacs94/15/2025 8:15 AM ESTOffice Visit [facility] [place] [facility] [address] [place] [phone] Josey Gonsalez MD [address] [place] [address] documented as of this encounter Goals GoalPatient Goal TypeAssociated ProblemsRecent ProgressPatient-Stated?Author Help patient manage antidepressant medication Care PlanPatient on antidepressant monitoring Josey Caceres MD Baseline PHQ-9 Care PlanBaseline PHQ-9Josey Peterson, MDdocumented as of this encounter Visit Diagnoses Diagnosis Tremors of nervous system Anxiety Anxiety state, unspecified Migraine without aura and without status migrainosus, not intractable documented in this encounter Additional Health Concerns Active ProblemsNoted DateDiagnosed DatePatient on antidepressant monitoring plan 5Baseline PHQ-9004/07/2025documented as of this encounter Care Teams Team MemberRelationshipSpecialtyStart DateEnd Date Josey Gonsalez MD [address] [facility] [address] [place] [address] PCP - GeneralFamily Medicine12/21/22documented as of this encounter
--- OUTSIDE RECORDS SUMMARY | 2025-05-21 07:58 | XMS_ITS | Clinical Summary ---
Author Organization [facility] Address [address] [place] [address] Care Team Providers Care Audio/Video Technician Name Role Phone Unavailable Primary Care Provider Unavailabl e Allergies Active AllergyReactionsCriticalityNoted DateCommentsHydromorphoneItching 03/04/2013 Medications MedicationSigDispense QuantityRefillsLast FilledStart DateEnd DateStatus DULoxetine (CYMBALTA) 30 mg capsule Take 90 mg by mouth once daily.12/12/2020ctive amLODIPine (NORVASC) 5 mg tablet Take 1 tablet by mouth once daily.12/12/2020ctive OLANZapine (ZYPREXA) 5 mg tablet Take 1 tablet by mouth once daily.12/13/2020ctive furosemide (LASIX) 20 mg tablet Take 1 tablet by mouth once daily.11/05/2020ctive L.acid/L.casei/B.bif/B.aditya/FOS (PROBIOTIC BLEND ORAL) Take by mouth.Active dicyclomine (BENTYL) 10 mg capsule Take 1 capsule by mouth as needed.08/27/2020ctive cyclobenzaprine (FLEXERIL) 10 mg tablet Take 10 mg by mouth as needed (for migraines).Active albuterol HFA (PROVENTIL HFA, VENTOLIN HFA) 90 mcg/actuation inhaler Inhale 1 Puff as instructed as needed.12/12/2020ctive POTASSIUM-99 ORAL Take 1 capsule by mouth once daily.Active Social History Tobacco UseTypesPacks/DayYears UsedDateSmoking Tobacco: Never AssessedArea Deprivation IndexAnswerDate RecordedNational Score (1-100), lower number is lower riskNot on file12/22/2020tate Score (1-10), lower number is lower riskNot on file12/22/2020ata from: https://www.neighborhoodatlas.medicine.[facility].edu/. Last address used for calculationNot on file12/22/2020CommentsUnknownSex and Gender InformationValueDate RecordedSex Assigned at GboaqXhfumq58/07/2021 4:52 PM EDTLegal SglKdcldw97/02/2012 8:22 AM ESTGender SryybhmlCumxbb36/07/2021 4:52 PM EDTSexual HngkwuhyjijKwowxhhy72/07/2021 4:52 PM EDT Last Filed Vital Signs Vital SignReadingTime TakenCommentsBlood Pressure--Pulse--Temperature-- Respiratory Rate--Oxygen Saturation--Inhaled Oxygen Concentration--Sqamlc80.8 kg (220 lb)12/22/2020 12:24 PM CHXYvzwjg043.4 cm (5' 5.5 )12/22/2020 12:24 PM EDT Body Mass Index36.05012/22/2020 12:24 PM EDT Plan of Treatment Health MaintenanceDue DateLast DoneCommentsAnxiety Dlsndvuov14/01/1988Depression Bhexoymkn27/01/1988HIV Rpayvtwzb43/01/1988Hepatitis C Uqpbijdft99/01/1988 DTaP,Tdap,Td Vaccine (1 - Tdap)1988Hepatitis B Vaccine (1 of 3 - 19+ 3- dose series)1988Cervical Cancer Uvhmajnpn73/01/1991Mammogram Screening 2009CT Wljxcpdwrpeb68/01/2015Cologuard (FIT-DNA)2014Colonoscopy 2014Colorectal Cancer Euezsgkzk61/01/2015Diabetes Sekapluiu01/01/2015Fecal Occult Blood2014Lipid Hbkfjfzlv06/01/3539Alxcfraepeugu45/01/2015 Pneumococcal Vaccine: 50+ (1 of 1 - PCV)2019Shingrix Vaccine (1 of 2) 2019Covid-19 Vaccine (1 - 2024- season)2025Influenza Vaccine (#1) 2025 Insurance
--- OUTSIDE RECORDS SUMMARY | 2025-05-21 07:58 | XMS_ITS | Clinical Summary ---
Author Organization [facility] Address [address] [place] [address] Care Team Providers Care Customer Energy Specialist Name Role Phone Josey Youssef MD Primary Care Provider [phone] Allergies Active AllergyReactionsCriticalityNoted DateCommentsHydromorphoneItching 03/04/2013 Other Reaction(s): Unknown Medications MedicationSigDispense QuantityRefillsLast FilledStart DateEnd DateStatus albuterol HFA 90 mcg/act inhaler 12/21/2022ctive nystatin (Mycostatin) 220719 UNIT/ML suspension 09/07/2022ctive traMADol (Ultram) 50 MG tablet Indications:Other chronic painTAKE ONE TABLET BY MOUTH FOUR TIMES A DAY NEEDED 120 tablet 02/22/2023ctive aspirin 81 MG EC tablet 1 (one) time each day at the same time.Active loratadine (Claritin) 10 MG tablet 1 (one) time each day at the same time.Active feayiuzbcgws-unmz-hhhacnje-folic acid (Centrum Silver, geriatric,) tablet as directed OrallyActive omega-3 (fish oil) 1000 MG capsule 1 capsule 1 (one) time each day at the same time.Active potassium chloride CR (Klor-Con) 10 MEQ ER tablet every 12 (twelve) hours.Active ipratropium-albuterol (Duo-Neb) 0.5-2.5 mg/3 mL nebulizer solution 09/30/2023ctive montelukast (Singulair) 10 MG tablet 09/16/2023ctive omeprazole (PriLOSEC) [address] capsule Indications:Gastroesophageal reflux disease without esophagitisTAKE 1 CAPSULE BY MOUTH EVERY MORNING BEFORE MEALS, DO NOT CRUSH OR CHEW 100 capsule 4Active atorvastatin (Lipitor) 40 MG tablet Indications:HypertriglyceridemiaTAKE 1 TABLET BY MOUTH DAILY 100 tablet 5Active metFORMIN (Glucophage) 500 MG tablet Indications:HypertriglyceridemiaTAKE 1 TABLET BY MOUTH DAILY WITH A MEAL 100 tablet 5Active OLANZapine (ZyPREXA) 10 MG tablet Indications:Adjustment disorder with anxietyTAKE 1 TABLET BY MOUTH DAILY 100 tablet 5Active DULoxetine (Cymbalta) [address] capsule Indications:Depressive disorderTAKE 1 CAPSULE BY MOUTH DAILY 100 capsule 5Active zinc gluconate 50 MG tablet Take 50 mg by mouth DailyActive Calcium Carbonate-Vit D-Min (CALCIUM 1200 PO) Take 2 tablets by mouth DailyActive gabapentin (Neurontin) 300 MG capsule Indications:Herpes zoster without complicationTake 1 capsule (300 mg) by mouth in the morning and 1 capsule (300 mg) in the evening and 1 capsule(300 mg) before bedtime. Do all this for 10 days. 30 capsule 5Active furosemide (Lasix) 20 MG tablet Indications:Essential hypertensionTAKE 1 TABLET(20 MG) BY MOUTH DAILY 100 tablet 5Active DULoxetine (Cymbalta) [address] capsule Indications:Depressive disorderTake 1 capsule (30 mg) by mouth Daily 100 capsule 5Active amLODIPine (Norvasc) 5 MG tablet Indications:Essential hypertensionTake 1 tablet (5 mg) by mouth Daily04/07/2025 Active Semaglutide, 2 MG/DOSE, 8 MG/3ML solution pen-injector Indications:Type 2 diabetes mellitus with diabetic nephropathy, without long- term current use of insulin (HCC)Inject 2 mg under the skin 1 (one) time per week 9 mL 5Active diclofenac sodium (Voltaren XR) 100 mg 24 hr tablet Indications:DizzinessTAKE 1 TABLET BY MOUTH DAILY 30 tablet 5Active cyclobenzaprine (Flexeril) 5 MG tablet Indications:Tremors of nervous systemTAKE 1 TABLET BY MOUTH 3 TIMES A DAY 90 tablet 5Active ALPRAZolam (Xanax) 0.5 MG tablet Indications:AnxietyTAKE 1 TABLET BY MOUTH EVERY MORNING AND TAKE 1 TABLET BY MOUTH EVERY NIGHT AT BEDTIME 60 tablet /5Active Rimegepant Sulfate (Nurtec) 75 MG tablet dispersible Indications:Migraine without aura and without status migrainosus, not intractableDISSOLVE 1 TABLET BY MOUTH EVERY OTHER DAY FOR PREVEBTATIVE 15 tablet 5Active Rimegepant Sulfate (Nurtec) 75 MG tablet dispersible Indications:Migraine without aura and without status migrainosus, not intractableDISSOLVE 1 TABLET BY MOUTH EVERY OTHER DAY FOR PREVENTATIVE 15 tablet /Discontinued cyclobenzaprine (Flexeril) 5 MG tablet Indications:Tremors of nervous systemTAKE 1 TABLET BY MOUTH 3 TIMES A DAY 90 tablet Discontinued ALPRAZolam (Xanax) 0.5 MG tablet Indications:AnxietyTAKE 1 TABLET BY MOUTH EVERY MORNING AND TAKE 1 TABLET BY MOUTH EVERY NIGHT AT BEDTIME 60 tablet Discontinued Dextromethorphan-buPROPion ER (Auvelity) 45-105 MG tablet controlled-release Indications:Major depressive disorder, single episode, mildTake 1 tablet by mouth Daily 30 tablet Expired Active Problems ProblemNoted DateDiagnosed DateMajor depressive disorder, single episode, mild 04/07/2025 Assessment & Plan (04/07/2025 9:49 AM EDT): This is a chronic medical condition that is stable since last assessment. No changes in treatment are suggested at this time. Continue Current meds. Spinal stenosis of lumbar arvtsh3404/07/2025bnormal laboratory test result 10/13/2024hronic kidney dvmrbki8110/13/2024Moderate persistent asthma without cvgxcqamqtpq31/17/2025Renal cyst09/11/2024OPD with chronic muibcgzahf33/30/2024 Diabetic nephropathy associated with type 2 diabetes xbmsbviw81/16/2024 Assessment & Plan (10/13/2024 9:08 AM EDT): No Tobacco use Follow ADA 1800 diet low carbohydrate Continue Med Compliance Goal LDL less than 100Goal BP 130/80 Goal HgbA1c < 7.0% Monitor Feet, monitor for infection Needs Exercise Yearly eye exams Prior to your visit today we reviewed your chart and outlined testing and treatment needed foryour care. Reviewed poissble complications of diabetes including, [...] Continue Med Compliance Goal LDL less than 100Goal BP 130/80 Goal HgbA1c < 7.0% Monitor Feet, monitor for infection Needs Exercise Yearly eye exams Prior to your visit today we reviewed your chart and outlined testing and treatment needed foryour care. Reviewed poissble complications of diabetes including, loss of vision, kidney failure and increased risk of heart attacks and stroke. We made recommendations on how to control your blood sugars, and minimize your risk of these complications. We discussed your current barriers to a healthy living and importance of healthy diet and exercise. 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 No changes in treatment are suggested at this time. Continue Current meds. Essential gyvjsfphaqcm41/30/2023 Assessment & Plan (04/07/2025 9:48 AM EDT): Our specific goals, for your hypertension, is to keep your blood pressure less than 140/90, and theimportance of weight control. We made recommendations on [...] the importance of taking them as prescribed. Sodraft handouts Assessment & Plan (10/13/2024 9:08 AM EDT): Our specific goals, for your hypertension, is to keep your blood pressure less than 140/90, and theimportance of weight control. We made recommendations on [...] the importance of taking them as prescribed. Sodraft handouts Assessment & Plan (04/14/2024 1:13 PM EDT): Our specific goals, for your hypertension, is to keep your blood pressure less than 140/90, and theimportance of weight control. We made recommendations on [...] the importance of taking them as prescribed. Sodraft handouts Assessment & Plan (04/09/2023 8:31 AM EDT): Our specific goals, for your hypertension, is to keep your blood pressure less than 140/90, and theimportance of weight control. We made recommendations on [...] DASH diet handouts Hot flashes due to fvgfksmyw66/30/2704Qaledynbvddeufixxeyh35/30/2023Irritable bowel syndrome with lyxzewbw24/30/2023Leg length rfurigeffct59/30/2023Migraine without aura and without status migrainosus, not clmchrytteh23/30/2023 Assessment & Plan (10/23/2023 9:00 AM EDT): Recommend continuing the FMLA Patient had good results with Nurtec. She takes every other day for prevention and she has tried other agents like Ubrelvy with some relief. Had been Imitrex, but has had high BP. Has had propranololfor migraines BP and was ineffective. Assessment & Plan (04/09/2023 8:44 AM EDT): Nurtec effective minimal migraine, less intense and less frequent Morbid (severe) obesity due to excess lkuwaygm49/30/2023 Assessment & Plan (04/14/2024 1:17 PM EDT): Weight loss encouraged Assessment & Plan (04/09/2023 8:30 AM EDT): Weight loss and exercise encouraged Osteoarthritis of lumbar spine12/26/2022Other chronic pain12/26/2022iriformis syndrome of left side12/26/20229759Smuxpuonf47/30/2023Pure hypercholesterolemia 12/26/2022 Assessment & Plan (04/14/2024 1:14 PM EDT): This is a chronic medical condition that is stable since last assessment. No changes in treatment are suggested at this time. Continue Current meds. Stage 3a chronic kidney tuqkpqt2112/26/2022 Assessment & Plan (10/23/2023 8:56 AM EDT): Saw Nephrology 6-8 months ago Surgical vtcafdmza12/30/2023Tension octmscsm17/30/2023Type 2 diabetes mellitus 12/26/2022 Assessment & Plan (04/07/2025 9:48 AM EDT): No Tobacco use Follow ADA 1800 diet low carbohydrate Continue Med Compliance Goal LDL less than 100Goal BP 130/80 Goal HgbA1c < 7.0% Monitor Feet, monitor for infection Needs Exercise Yearly eye exams Prior to your visit today we reviewed your chart and outlined testing and treatment needed foryour care. Reviewed poissble complications of diabetes including, [...] Continue Med Compliance Goal LDL less than 100Goal BP 130/80 Goal HgbA1c < 7.0% Monitor Feet, monitor for infection Needs Exercise Yearly eye exams Prior to your visit today we reviewed your chart and outlined testing and treatment needed foryour care. Reviewed poissble complications of diabetes including, loss of vision, kidney failure and increased risk of heart attacks and stroke. We made recommendations on how to control your blood sugars, and minimize your risk of these complications. We discussed your current barriers to a healthy living and importance of healthy diet and exercise. Sciatic nerve zzipvm3904/06/2017History of twathdmflcfj40/14/2016 Resolved Problems ProblemNoted DateDiagnosed DateResolved DatePre-hhldhcri09ody mass index (BMI) 37.0-37.9, adult Assessment & Plan (04/14/2024 1:17 PM EDT): Diet and Exercise encouraged Nicotine dependence, cigarettes, with unspecified nicotine-induced disorders / Assessment & Plan (10/23/2023 8:55 AM EDT): Resumed smoking after mom's Discussed smoking cessation with the patient. Encouraged patient to cut back and soon quit smoking.Health risks of smoking, and benefits of quitting reviewed with the patient. Acute exacerbation of chronic obstructive pulmonary svtisqy31 Assessment & Plan (04/09/2023 9:18 AM EDT): Trelegy samples given Elevated BP without diagnosis of khlsastnouzn54/30/202309/Finding of above normal blood wipqwlib89H/O total lzjveekdmnyt37/30/2023 04/28/2024Hot gmvrbhl85Impaired fasting sdfknbz8212/26/2022 04/14/2024Migraine zzpzmftk89Obesity (BMI 30.0-34.9)12/26/2022 04/28/20242703Asdynn73/30/202302/ Assessment & Plan (04/09/2023 8:39 AM EDT): Discussed smoking cessation with the patient. Encouraged patient to cut back and soon quit smoking.Health risks of smoking, and benefits of quitting reviewed with the patient. Encounters DateTypeDepartmentCare NqarKcrxcllipnj09/20/2025Refill [facility] [address] [facility] [address] [place] [phone] Josey Youssef MD Tremors of nervous system; Anxiety; Migraine without aura and without status migrainosus, not qzwepijatav43/25/2025 Clinisync Result Encounter [facility] External Department Unsolicited Provider, Generic External Data 04/23/2025linisync Result Encounter [facility] External Department Unsolicited Provider, Generic External Data 04/21/2025Refill [facility] [address] [facility] [address] [place] [phone] Josey Youssef MD Idukwkznf73/17/2025bstract [facility] [address] [facility] [address] [place] [phone] Josey Youssef MD 04/07/2025 9:30 AM EDTOffice Visit [facility] [address] [facility] [address] [place] [address] Josey Youssef MD Spinal stenosis of lumbar region, unspecified whether neurogenic claudication present (Primary Dx); Type 2 diabetes mellitus with diabetic nephropathy, without long-term current use of insulin (HCC); Major depressive disorder, single episode, mild ; Essential rrsgyowvqzrv63/09/0243Owsaco12/17/2025[facility] [address] [facility] [address] [place] [address] Josey Youssef MD Anxietyfrom Last 3 Months Immunizations ImmunizationAdministration DatesNext DueInfluenza, injectable, MDCK, preservative free, zqerjroduqjr29/13/2021Influenza, injectable, quadrivalent, preservative free06/15/2022Moderna Bivalent Booster Bqwuhcxleoc33/17/2022 SARS-COV-2 (COVID-19) vaccine, mRNA, spike protein, LNP, bivalent, preservative free, 30 mcg/0.3 mLdose, maria esther-sucrose djwfduvetno29/17/2022 Family History Medical HistoryRelationNameCommentsColon cancerMaternal GrandfatherDiabetes Maternal GrandmotherCancer, DM HTNMotherPassed away ervical cancerMother DiabetesMotherhtnMotherPsoriasisOtherFamily historyHeart diseasePaternal GrandfatherStrokePaternal GrandfatherDiabetesPaternal GrandmotherRelationName StatusCommentsFatherAliveMaternal GrandfatherMaternal GrandmotherDeceasedMother DeceasedOtherFamily historyPaternal GrandfatherPaternal Grandmother Social History Tobacco UseTypesPacks/DayYears UsedDateSmoking Tobacco: XwmekkMhabfyojsc677 Started: 1984Smokeless Tobacco: Never Tobacco Cessation:Counseling Given: Not Answered Alcohol UseStandard Drinks/WeekCommentsYes0 (1 standard drink = 0.6 oz pure alcohol)1-2 drinks monthly or less, caffeine yes coffee,sodaSocial Connection and Isolation PanelAnswerDate RecordedIn a typical week, how many times do you talk on the phone with family, friends, or neighbors?Patient yhqcztbo60/25/2024 How often do you get together with friends or relatives?Patient declined 10/22/2023How often do you attend anabaptism or congregational services?Patient declined 10/22/2023o you belong to any clubs or organizations such as anabaptism groups, unions, fraternal or athletic groups, or school groups?Patient declined 10/22/2023How often do you attend meetings of the clubs or organizations you belong to?Patient qyundcqi80/25/2024re you , , , , never , or living with a partner?Siivzah5410/22/2023UDIT-C AnswerDate RecordedQ1: How often do you have a drink containing alcohol?Patient omeodiox00/25/2024Q2: How many drinks containing alcohol do you have on a typical day when you are drinking?Patient fdylplhv56/25/2024Q3: How often do you have six or more drinks on one occasion?Patient /25/2024Overall Financial Resource Strain (CARDIA)AnswerDate RecordedHow hard is it for you to pay for the very basics like food, housing, medical care, and heating?Patient fsaeprze40/25/2024HQ-2AnswerDate RecordedPatient Health Questionnaire-2 Score0 04/07/2025Hunger Vital SignAnswerDate RecordedWithin the past 12 months, you worried that your food would run out before you got the money to buymore.Patient jlyyzvyp35/25/2024Within the past 12 months, the food you bought just didn't last and you didn't have money to get more.Patient yqhadwnj41/25/2024RAPARE - TransportationAnswerDate RecordedIn the past 12 months, [...] to sleep or slept in ashelter (including now)?No4CommentsUnknownSex and Gender InformationValueDate RecordedSex Assigned at BirthNot on fileLegal SexFemale 10/11/2022 7:00 PM EDTGender IdentityNot on fileSexual OrientationNot on file Last Filed Vital Signs Vital SignReadingTime TakenCommentsBlood Fjolpxwz460/8809 9:27 AM EDT Dcyad944104/07/2025 9:27 AM JVIKchmqhbsmmg80.3 ??C (99.2 ??F)01/10/2023 9:23 AM EDTRespiratory Qaej212609/11/2024 9:28 AM ESTOxygen Madtirxlhp67%04/07/2025 9:27 AM EDTInhaled Oxygen Concentration--Pdrlcs15.4 kg (217 lb)04/07/2025 9:27 AM EDT Fbtusv635.1 cm (5' 5 )04/07/2025 9:27 AM EDTBody Mass Index36.1109 9:27 AM EDT Plan of Treatment DateTypeDepartmentCare Team (Latest Contact Info)Frqvayslnqn29/15/2025 8:15 AM ESTOffice Visit [facility] [address] [facility] [address] [place] [address] Josey Youssef MD [address] [address] [place] [address] Health MaintenanceDue DateLast DoneCommentsCT Cyqwmmdjydnk41/01/1970FIT-DNA 1969FIT7162FURF72/01/6085Qldxwcwjpwigo12/01/1970Diabetes: Retinopathy Zmwwkpaby25/01/1980Influenza Vaccine (#1)/, 07/11/20216267Gzzbowowo20/20/202509/, 2Diabetes: Hemoglobin A1C /03/2025, 10/13/2024, 04/14/2024, Additional history existsDiabetes: Urine Protein Zgwfxzomo24/13/303243/, 04/09/2023, 2Colonoscopy 1Colorectal Cancer Lkmrasmbd51/07/2031 Goals GoalPatient Goal TypeAssociated ProblemsRecent ProgressPatient-Stated?Author Help patient manage antidepressant medication Care PlanPatient on antidepressant monitoring Josey Caceres MD Baseline PHQ-9 Care PlanBaseline PHQ-9Josey Peterson MD Procedures Procedure NamePriorityDate/TimeAssociated DiagnosisCommentsXR LUMBAR SPINE MIN 4V04/23/2025 9:48 AM EDT XR SACROILIAC JOINT04/23/2025 9:47 AM EDT POCT GLYCATED HEMOGLOBIN, SRFJOKptsvst90/09/2025 9:37 AM EDT Type 2 diabetes mellitus with diabetic nephropathy, without long-term current use of insulin (HCC) MICROALBUMIN / CREATININE URINE GIEVNAlptity73/13/2025 2:17 PM EST MM TOMOSYNTHESIS SCREENING BI04/18/2024 12:10 PM EDT BILAMPZOZKPRcccasb93/07/2021 12:00 PM EDT from Last 3 Months or Most Recently Relevant to Health Maintenance Results * XR LUMBAR SPINE MIN 4V (04/23/2025 9:48 AM EDT)Anatomical RegionLaterality ModalityOtherSpecimen (Source)Anatomical Location / LateralityCollection Method / VolumeCollection TimeReceived Time04/23/2025 9:48 AM EDT Narrative 04/23/2025 9:50 AM EDT [facility] [place] [facility] ?[address] ? [place] [address] ?XRay Report ? Signed ? Patient: DHARA DALLAS ?MR#: [id number] ?? : 1970 ?Acct:[id number] ?? Age/Sex: 54 / F ?ADM Date: /25/25 ?? Loc: RAD ? Attending Dr: Tyra Vance INNERSOLE MAKER ? Ordering Physician: Tyra Vance NP ?? Date of Service: 04/23/25 ?? Procedure(s): XR lumbar spine min 4V ?? Accession Number(s): [id number] ? cc: JOSEY YOUSSEF ; Tyra Vance INNERSOLE MAKER ? [facility] [place] [facility] ? [address] ? [place] [address] ? Patient Name: ?? DHARA DALLAS ? MRN: [facility]:[id number] ? date: 1970 ?Sex: F ?? Assigned Patient Location: PM ?? Current Patient Location: PM ?? Accession/Order Number: [id number] ?? Exam Date: 04/23/2025 ??08:55 ?Report Date: 04/23/2025 ??09:48 ? At the request of: ?? TYRA ??ELY ??INNERSOLE MAKER ? Procedure: ??XR lumbar spine min 4V ? LUMBAR SPINE - 5 views ? CLINICAL HISTORY: Spondylosis, Sacroiliitis ? COMPARISON: MRI lumbar spine 12/15/2022 ? FINDINGS: Vertebral body heights appear maintained. ??Endplate and facet joint ?? degenerative changes with moderate disc space narrowing L4-L5 L5-S1 which has ?? progressed since 2022. ? XR/XR lumbar spine min 4V ?? IMPRESSION: ? DEGENERATIVE CHANGES INVOLVING THE LUMBAR SPINE WITH MODERATE DISC SPACE ?? NARROWING L4-L5 AND L5-S1 WHICH HAS PROGRESSED SINCE 2022. ? Impression dictated by: Rafiq Rai Jr., D.O. ??04/23/2025 9:48 AM ? Dictation Location: [facility]--23 ? Electronically authenticated by: [id number] ??Y ?? Date: 04/23/2025 ??09:48 ? Dictated By: ?Rafiq Rai M.D. ? Signed By: ?04/23/25 0950 ? DD/ 0948 ? TD/TT: ? Pen Ruler Operator: Procedure Note Radiology, Radiologist, MD - 04/23/[address] [address] XRay Report Signed Patient: DHARA DALLAS AMR#: [id number] : 1970Acct:[id number] Age/Sex: 54 / FADM Date: 04/23/25 Loc: RAD Attending Dr: Tyra Ely INNERSOLE MAKER Ordering Physician: Tyra Vance NP Date of Service: 04/23/25 Procedure(s): XR lumbar spine min 4V Accession Number(s): [id number] cc: JOSEY YOUSSEF ; Tyra Vance NP The [place] [id number] Patient Name: DHARA DALLAS MRN: [id number] date: 1970 Sex: F Assigned Patient Location: PM Current Patient Location: PM Accession/Order Number: [id number] Exam Date: 04/23/2025 08:55 Report Date: 04/23/2025 09:48 At the request of: TYRA VANCE NP Procedure: XR lumbar spine min 4V LUMBAR SPINE - 5 views CLINICAL HISTORY: Spondylosis, Sacroiliitis COMPARISON: MRI lumbar spine 12/15/2022 FINDINGS: Vertebral body heights appear maintained. Endplate and facetjoint degenerative changes with moderate disc space narrowing L4-L5 L5-S1 whichhas progressed since 2022. XR/XR lumbar spine min 4V IMPRESSION: DEGENERATIVE CHANGES INVOLVING THE LUMBAR SPINE WITH MODERATE DISC SPACE NARROWING L4-L5 AND L5-S1 WHICH HAS PROGRESSED SINCE 2022. Impression dictated by: Rafiq Rai Jr., D.O. 04/23/2025 9:48 AM Dictation Location: [place] [address] Electronically authenticated by: [id number] Y Date: 9:48 Dictated By: Rafiq Rai M.D. Signed By:04/23/2550 DD/ TD/TT: Pen Ruler Operator: Authorizing ProviderResult TypeResult StatusGeneric External Data Provider CLINISYNC IMAGINGFinal Result * XR SACROILIAC JOINT (04/23/2025 9:47 AM EDT)Anatomical RegionLaterality ModalityRadiographic ImagingSpecimen (Source)Anatomical Location / Laterality Collection Method / VolumeCollection TimeReceived Time04/23/2025 9:47 AM EDT Narrative 04/23/2025 9:49 AM EDT [facility] [place] [facility] ?[address] ? [place] [address] ?XRay Report ? Signed ? Patient: ARTIERGER,DHARA A ?MR#: [id number] ?? : 1970 ?Acct:[id number] ?? Age/Sex: 54 / F ?ADM Date: 09/25/25 ?? Loc: RAD ? Attending Dr: Tyra Vance INNERSOLE MAKER ? Ordering Physician: Tyra Vance NP ?? Date of Service: 04/23/25 ?? Procedure(s): XR sacroiliac joint ELIANE ?? Accession Number(s): [id number] ? cc: JOSEY YOUSSEF ; Tyra Vance NP ? [facility] [place] [facility] ? [address] ? [place] [address] ? Patient Name: ?? DHARA DALLAS ? MRN: [facility]:[id number] ? date: 1970 ?Sex: F ?? Assigned Patient Location: PM ?? Current Patient Location: ?? Accession/Order Number: [id number] ?? Exam Date: 04/23/2025 ??08:55 ?Report Date: 04/23/2025 ??09:47 ? At the request of: ?? TYRA ??ELY ??INNERSOLE MAKER ? Procedure: ??XR sacroiliac joint ELIANE ? SI joints 3 views. ? Reason for exam: Sacroiliitis. ? COMPARISON: SI joints 12/15/2022. ? FINDINGS: SI joints demonstrate degenerative changes similar to the prior ?? study with. ??Additional degenerative changes are seen involving the pubic ?? symphysis. ??Avascular necrosis changes involving the hips without femoral head ?? collapse. ??No acute bony process. ??Sacral foramina appear grossly intact. ? XR/XR sacroiliac joint ELIANE ?? IMPRESSION: Degenerative changes involving the SI joints similar to the prior ?? study. ? 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 ? Impression dictated by: Rafiq Rai Jr., D.O. ??04/23/2025 9:47 AM ? Dictation Location: [facility]-23 ? Electronically authenticated by: [id number] ??Y ?? Date: 04/23/2025 ??09:47 ? Dictated By: ?Rafiq Rai M.D. ? Signed By: ?04/23/25 0949 ? DD/ 0947 ? TD/TT: ? Pen Ruler Operator: Procedure Note Radiology, Radiologist, MD - 04/23/[address] [address] XRay Report Signed Patient: DHARA DALLAS AMR#: [id number] : 1970Acct:[id number] Age/Sex: 54 / FADM Date: 04/23/25 Loc: [facility] Attending Dr: Tyra Vance NP Ordering Physician: Tyra Vance NP Date of Service: 04/23/25 Procedure(s): XR sacroiliac joint ELIANE Accession Number(s): [id number] cc: JOSEY YOUSSEF ; Tyra Vance NP [place] [address] Patient Name: DHARA DALLAS MRN: [id number] date: 1970 Sex: F Assigned Patient Location: Current Patient Location: Accession/Order Number: [id number] Exam Date: 04/23/2025 08:55 Report Date: 04/23/2025 09:47 At the request of: TYRA VANCE NP Procedure: XR sacroiliac joint ELIANE SI joints 3 views. Reason for exam: Sacroiliitis. COMPARISON: SI joints 12/15/2022. FINDINGS: SI joints demonstrate degenerative changes similar to the prior study with. Additional degenerative changes are seen involving the pubic symphysis. Avascular necrosis changes involving the hips without femoralhead collapse. No acute bony process. Sacral foramina appear grossly intact. XR/XR sacroiliac joint ELIANE IMPRESSION: Degenerative changes involving the SI joints similar to theprior study. 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 Impression dictated by: Rafiq Rai Jr., D.O. 04/23/2025 9:47 AM Dictation Location: [place] [address] Electronically authenticated by: [id number] Y Date: 509:47 Dictated By: Rafiq Rai M.D. Signed By:04/23/2549 DD/ 6 TD/TT: Pen Ruler Operator: Authorizing ProviderResult TypeResult StatusGeneric External Data ProviderIMG XR PROCEDURESFinal Result * POCT Glycated hemoglobin, total (04/07/2025 9:37 AM EDT)ComponentValueRef RangeTest MethodAnalysis TimePerformed AtPathologist SignatureHemoglobin A1C 5.5Specimen (Source)Anatomical Location / LateralityCollection Method / Volume Collection TimeReceived NihiNgdvr89/09/2025 9:37 AM EDT Narrative Authorizing ProviderResult TypeResult StatusJosey Youssef MDPOINT OF CARE TEST ENTER/EDIT ORDERABLESFinal Result * Microalbumin / creatinine urine ratio (09/11/2024 2:17 PM EST)ComponentValue Ref RangeTest MethodAnalysis TimePerformed AtPathologist SignatureCREATININE, RANDOM [id number] - 275 mg/dLQUESTALBUMIN, URINE0.4See Note: mg/dLQUESTComment: Reference Range: Reference Range Not established ALBUMIN/CREATININE RATIO, RANDOM URINE9<30 mg/g creatQUESTComment: The ADA defines abnormalities in albumin excretion as follows: Albuminuria Category ?Result (mg/g creatinine) Normal to Mildly increased <30 Moderately increased ? 30-299 Severely increased > OR = 300 The ADA recommends that at least two of three specimens collected within a 3-6 month period be abnormal before considering a patient to be within a diagnostic category. Specimen (Source)Anatomical Location / LateralityCollection Method / Volume Collection TimeReceived Time09/11/2024 2:17 PM EST09/11/2024 2:18 PM EST Narrative Resulting Agency Comment Performing Organization Information ?Site ID: [id number] ?Name: [facility] ?Address: [address] [place] [address], [address] [place] [phone] ?Director: Christiano Escobar MD Authorizing ProviderResult TypeResult StatusJanel Field PALAB URINE ORDERABLESFinal ResultPerforming OrganizationAddressCity/State/ZIP CodePhone Number QUEST * MM TOMOSYNTHESIS SCREENING BI (04/18/2024 12:10 PM EDT)Anatomical Region LateralityModalityOtherSpecimen (Source)Anatomical Location / Laterality Collection Method / VolumeCollection TimeReceived Time04/18/2024 12:10 PM EDT Narrative 04/18/2024 12:11 PM EDT [facility] [place] [facility] ?[address] ? [place] [address] ? Mammography Report ? Signed ? Patient: SCHERGER,DHARA A ?MR#: [id number] ?? : 1970 ?Acct:[id number] ?? Age/Sex: 53 / F ?ADM Date: 09/20/24 ?? Loc: MAMMO ? Attending Dr: JOSEY YOUSSEF ? Ordering Physician: JOSEY YOUSSEF ? Results: ? Date of Service: 04/18/24 ?Follow Up: ? Procedure(s): MM tomosynthesis screening BI ?? Accession Number(s): [id number] ? cc: JOSEY YOUSSEF ? Patient Name: ? DHARA DALLAS ? MR#: [id number] ? : 1970 ? Exam Date: 04/18/2024 ?? Ordering Doctor: DR JOSEY YOUSSEF M.D. ? RADIOLOGY REPORT ? PROCEDURE: ? MM TOMOSYNTHESIS SCREENING BI ? COMPARISON: ? MG MAMM SCREEN 3D ELIANE CAD, 12/09/2021. ??MG MAMM SCREEN ELIANE W ?? CAD, 10/31/2016. ? INDICATIONS: ? Screening mammogram ? Calculator Name ? NCI Breast Cancer Risk Assessment Tool ?? 5 Year Breast Cancer Risk ? 0.80% ?? Lifetime Breast Cancer Risk ? 6.10% ?? Personal Breast Cancer ?No ?? Personal Ovarian Cancer ? No ?? Treatments ? None ?? Family Cancers ? Mother with ovarian cancer at age 27; Grandmother-maternal ?? with colon cancer at age 66; Grandmother-maternal with lung cancer at age 79. ? LOCATION: ? [facility] [place] [facility] ? BREAST COMPOSITION: ? There are scattered areas of fibroglandular density. ? FINDINGS: ? DIAGNOSTIC CATEGORY 1--NEGATIVE. NO CHANGE FROM COMPARISON ASSESSMENT. ? Scattered benign-appearing calcifications are present. ??Scattered ?? benign-appearing lymph nodes are present. ? RIGHT BREAST: ??No significant suspicious finding. ? LEFT BREAST: ??No significant suspicious finding. ? RECOMMENDATIONS: ? ROUTINE MAMMOGRAM AND CLINICAL EVALUATION IN 12 MONTHS. ? PLEASE NOTE: ??A NORMAL MAMMOGRAM DOES NOT EXCLUDE THE POSSIBILITY OF BREAST ?? CANCER. ??A CLINICALLY SUSPICIOUS PALPABLE LUMP SHOULD BE BIOPSIED. ? Dictated by: Silver Sterling MD on 04/18/2024 at 12:09 ? Approved by: Silver Sterling MD on 04/18/2024 at 12:10 ? Dictated By: ?Silver Sterling M.D. ? Signed By: ?04/18/24 1211 ? DD/ 1210 ? TD/TT: ? Pen Ruler Operator: Procedure Note Radiology, Radiologist, MD - 04/18/2024 [place] [address] Mammography Report Signed Patient: DHARA DALLAS AMR#: [id number] : 1970Acct:[id number] Age/Sex: 53 / FADM Date: 04/18/24 Loc: MAMMO Attending Dr: JOSEY YOUSSEF Ordering Physician: Taylor YOUSSEFults: Date of Service: 04/18/24Follow Up: Procedure(s): MM tomosynthesis screening BI Accession Number(s): [id number] cc: JOSEY YOUSSEF Patient Name: DHARA DALLAS MR#: [id number] : 1970 Exam Date: 04/18/2024 Ordering Doctor: DR JOSEY YOUSSEF M.D. RADIOLOGY REPORT PROCEDURE: MM TOMOSYNTHESIS SCREENING BI COMPARISON: MG MAMM SCREEN 3D ELIAEN CAD, 12/09/2021. MG MAMM SCREEN BILW CAD, 10/31/2016. INDICATIONS: Screening mammogram Calculator Name NCI Breast Cancer Risk Assessment Tool 5 Year Breast Cancer Risk 0.80% Lifetime Breast Cancer Risk 6.10% Personal Breast Cancer No Personal Ovarian Cancer No Treatments None Family Cancers Mother with ovarian cancer at age 27;Grandmother-maternal with colon cancer at age 66; Grandmother-maternal with lung cancer at age79. LOCATION: [facility] [place] [facility] BREAST COMPOSITION: There are scattered areas [...] M.D. Signed By:04/18/24 1211 DD/ 1210 TD/TT: Pen Ruler Operator: Authorizing ProviderResult TypeResult StatusJosey Youssef MDCLINISYNC IMAGING Final Result * Colonoscopy (12/03/2020 12:00 PM EDT)Anatomical RegionLateralityModality EndoscopySpecimen (Source)Anatomical Location / LateralityCollection Method / VolumeCollection TimeReceived Time12/03/2020 12:00 PM EDT Narrative 12/03/2020 12:00 PM EDT PERFORMED AT [facility] LOCATION:[id number] colonic polyp Procedure Note CONVERSION, GENERIC - 12/13/2022 PERFORMED AT [facility] LOCATION:[id number] colonic polyp Authorizing ProviderResult TypeResult StatusJosey Youssef MDENDOSCOPY PROCEDURE ORDERABLESFinal Result from Last 3 Months or Most Recently Relevant to Health Maintenance Additional Health Concerns Active ProblemsNoted DateDiagnosed DatePatient on antidepressant monitoring plan 04/07/2025aseline PHQ-9004/07/2025 Insurance Care Teams Team MemberRelationshipSpecialtyStart DateEnd Date Josey Youssef MD [address] [facility] [address] [place] [address] PCP - GeneralFamily Medicine12/21/22
--- OUTSIDE RECORDS SUMMARY | 2025-05-21 08:02 | XMS_ITS | CCD ---
Author Organization [facility] Care Team Providers Care Ui Developer Designer Name Role Phone WATTS ., DR AMELIA [...] Unavailable MIKAEL, DR DELGADO Primary Care Unavailable MADISON OCONNELL Consulting Unavailable MADISON OCONNELL Attending Unavailable LILIA, MADISON Admitting Unavailable WATTS ., DR AMELIA Pool Attending Unavailable WATTS ., DR AMELIA Pool Admitting Unavailable MIKAEL, DR DELGADO Primary Care Unavailable MAC ., DR AMELIA Pool Consulting Unavailable HALKIA ., DEYA Attending Unavailable MIKAEL, DR DELGADO Primary Care Unavailable HALKIA ., DEYA Admitting Unavailable ZIEBCHHAYA, DR BRANDON Underwood Consulting Unavailable HALKIA ., [...] Primary Care Unavailable KEVEN ESCOBEDO Consulting Unavailable Mikael Sandy GOMEZ Primary Care Provider JANEL CROWDER Attending Unavailable MIKAELSANDY Attending Unavailable MIKAELSANDY Attending Unavailable HEMJANEL MURRY Attending Unavailable LILIAMADISON CALLES Attending Unavailable MIKAELSANDY Attending Unavailable Yamile Lopez MD Attending Unavailable Allergies Allergy ClassificationReported Allergen(s)Allergy TypeDate of OnsetReaction(s) Facility (1 source)HYDROmorphoneDrug [id number] (20 sources)HYDROmorphoneDrug [id number] Medications Current Medications MedicationDrug Class(es)DatesSig (Normalized)Sig (Original)[id number] 200 actuat albuterol 0.09 mg/actuat metered dose inhaler (20 sources)beta2-Adrenergic AgonistStart: 63-06-2031ujomufdra HFA 90 mcg/act inhaler 12/21/2022 Activealbuterol 0.833 mg/ml / ipratropium bromide 0.167 mg/ml inhalation solution (20 sources)Anticholinergic, beta2-Adrenergic AgonistStart: 09-30-2023 ipratropium-albuterol (Duo-Neb) 0.5-2.5 mg/3 mL nebulizer solution 09/30/2023 ActiveALPRAZolam 0.5 mg oral tablet (20 sources)BenzodiazepineStart: 04-14-2024 End: 09-89-9256uisc 1 tablet by mouth once daily in the morning, then take 1 tablet by mouth once daily at bedtimeALPRAZolam (Xanax) 0.5 MG tablet Indications: Anxiety TAKE 1 TABLET BY MOUTH EVERY MORNING AND TAKE1 TABLET BY MOUTH EVERY NIGHT AT BEDTIME 60 tablet 05/18/2025 06/17/2025 ActiveamLODIPine 5 mg oral tablet (20 sources)Dihydropyridine Calcium Channel BlockerStart: 04-07-2025 End: 07-77-8141bumm 1 tablet by mouth once dailyamLODIPine (Norvasc) 5 MG tablet Indications: Essential hypertension Take 1 tablet (5 mg) by mouth Daily 04/07/2025 ActiveStart: 08-19-2024 End: 85-91-4243ogdk 1 tablet by mouth once dailyamLODIPine (Norvasc) 10 MG tablet Indications: Essential hypertension TAKE 1 TABLET BY MOUTH DAILY 100 tablet 3 08/19/2024 04/07/2025 Discontinued (Reorder)Start: 90-73-1114rgwu 1 tablet by mouth once dailyamLODIPine (Norvasc) 10 MG tablet Indications: Essential hypertension (CMS/HCC) TAKE ONE TABLET BY MOUTH DAILY 100 tablet 3 08/14/2023 Activeaspirin 81 mg delayed release oral tablet (20 sources)Platelet Aggregation Inhibitor, Nonsteroidal Anti-inflammatory Drug aspirin 81 MG EC tablet 1 (one) time each day at the same time. Active atorvastatin 40 mg oral tablet (20 sources)HMG-CoA Reductase InhibitorStart: 11-85-1156vrsz 1 tablet by mouth once dailyatorvastatin (Lipitor) 40 MG tablet Indications: Hypertriglyceridemia TAKE 1 TABLET BY MOUTH DAILY 100 tablet 3 08/19/2024 ActiveStart: 91-25-7837lfxx 1 tablet by mouth once dailyatorvastatin (Lipitor) 40 MG tablet Indications: Hypertriglyceridemia (CMS/HCC) TAKE 1 TABLET BY MOUTH DAILY 100 tablet 1 02/11/2024 Activeazithromycin 250 mg oral tablet (4 sources)Macrolide AntimicrobialStart: 08-05-2024 End: 75-21-9127whgo 2 tablets by mouth once daily, then take 1 tablet by mouth once dailyazithromycin (Zithromax) 250 MG tablet Indications: Pansinusitis, unspecified chronicity Take 2 tablets (500 mg) by mouth Daily for 1 day, THEN 1 tablet (250 mg) Daily for 4 days. 6 tablet ActiveCalcium Carbonate-Vit D-Min (CALCIUM 1200 PO) (10 sources)Calcium Carbonate-Vit D-Min (CALCIUM 1200 PO) Take 2 tablets by mouth Daily Activecyclobenzaprine hydrochloride 5 mg oral tablet (20 sources)Muscle RelaxantStart: 68-44-5886imat 1 tablet by mouth three times dailycyclobenzaprine (Flexeril) 5 MG tablet Indications: Tremors of nervous system TAKE 1 TABLET BY MOUTH 3 TIMES A DAY 90 tablet 1 05/18/2025 ActiveStart: 02-02-2025 End: 02-39-3800unyu 1 tablet by mouth three times dailycyclobenzaprine (Flexeril) 5 MG tablet Indications: Tremors of nervous system TAKE 1 TABLET BY MOUTH 3 TIMES A DAY 90 tablet 1 02/02/2025 05/18/2025 DiscontinuedStart: 73-46-1188wimb 1 tablet by mouth three times dailycyclobenzaprine (Flexeril) 5 MG tablet Indications: Tremors of nervous system TAKE 1 TABLET BY MOUTH 3 TIMES A DAY 90 tablet 1 11/24/2024 ActiveStart: 07-07-2024 End: 49-20-7300owok 1 tablet by mouth three times dailycyclobenzaprine (Flexeril) 5 MG tablet Indications: Tremors of nervous system TAKE 1 TABLET BY MOUTH 3 TIMES A DAY 90 tablet 1 07/07/2024 11/24/2024 DiscontinuedStart: 01-32-7423lial 1 tablet by mouth three times dailycyclobenzaprine (Flexeril) 5 MG tablet Indications: Tremors of nervous system TAKE 1 TABLET BY MOUTH 3 TIMES A DAY 90 tablet 1 04/22/2024 ActiveStart: 39-93-8177piog 5 mg by mouth once daily at bedtimeCyclobenzaprine Active 5 MG PO Daily at bedtime March 22, 2024 12:00amStart: 39-94-2732jijt 1 tablet by mouth three times daily cyclobenzaprine (Flexeril) 5 MG tablet Indications: Tremors of nervous system TAKE ONE TABLET BY MOUTH THREE TIMES A DAY 90 tablet 1 11/26/2023 Active Dextromethorphan-buPROPion ER (Auvelity) 45-105 MG tablet controlled-release (4 sources)Start: 04-07-2025 End: 76-48-1581aykb 45-105 mg by mouth once dailyDextromethorphan-buPROPion ER (Auvelity) 45-105 MG tablet controlled-release Indications: Major depressive disorder, single episode, mild Take 1 tablet by mouth Daily 30 tablet 04/07/2025 05/07/2025 Gtomlt64 hr diclofenac sodium 100 mg extended release oral tablet (20 sources)Nonsteroidal Anti-inflammatory DrugStart: 61-16-2071hmfg 1 tablet by mouth once dailydiclofenac sodium (Voltaren XR) 100 mg 24 hr tablet Indications: Dizziness TAKE 1 TABLET BY MOUTH DAILY 30 tablet 2 04/21/2025 ActiveStart: 65-71-0002fprc 1 tablet by mouth once dailydiclofenac sodium (Voltaren XR) 100 mg 24 hr tablet Indications: Dizziness TAKE 1 TABLET BY MOUTH DAILY 30 tablet 2 12/29/2024 ActiveStart: 81-52-5674vjhd 1 tablet by mouth once dailydiclofenac sodium (Voltaren XR) 100 mg 24 hr tablet Indications: Dizziness TAKE 1 TABLET BY MOUTH DAILY 30 tablet 2 09/15/2024 ActiveStart: 03-22-2024 End: 96-51-3053Tfdihpagpy Sodium Discontinued MG PO March 22, 2024 12:00am March 22, 2024 9:35amStart: 80-05-0054cpfr 1 tablet by mouth once daily diclofenac sodium (Voltaren XR) 100 mg 24 hr tablet Indications: Dizziness TAKE 1 TABLET BY MOUTH DAILY 100 tablet 1 02/11/2024 Activedocosahexaenoic acid 120 mg / eicosapentaenoic acid 180 mg oral capsule (20 sources)omega-3 (fish oil) 1000 MG capsule 1 capsule 1 (one) time each day at the same time. ActiveDULoxetine 30 mg delayed release oral capsule (20 sources)Serotonin and Norepinephrine Reuptake InhibitorStart: 52-08-4446celv 1 capsule by mouth once dailyDULoxetine (Cymbalta) [address] capsule Indications: Depressive disorder Take 1 capsule (30 mg) by mouth Daily 100 capsule 3 02/16/2025 ActiveStart: 67-23-8309vtde 1 capsule by mouth once dailyDULoxetine (Cymbalta) [address] capsule Indications: Depressive disorder (CMS/HCC) TAKE 1 CAPSULE BYMOUTH DAILY 30 capsule 2 10/20/2024 ActiveStart: 82-48-5427pnea 1 capsule by mouth once dailyDULoxetine (Cymbalta) [address] capsule Indications: Depressive disorder TAKE 1 CAPSULE BY MOUTH DAILY 100 capsule 3 08/19/2024 ActiveStart: 30-61-3520chnq 1 capsule by mouth once dailyDULoxetine (Cymbalta) [address] capsule Indications: Depressive disorder (CMS/HCC) TAKE 1 CAPSULE BY MOUTH DAILY 30 capsule 2 07/21/2024 ActiveStart: 90-71-4434xylf 1 capsule by mouth once dailyDULoxetine (Cymbalta) [address] capsule Indications: Depressive disorder (CMS/HCC) TAKE 1 CAPSULE BYMOUTH DAILY 30 capsule 2 04/18/2024 Active Start: 63-84-2562nqra 1 capsule by mouth once dailyDULoxetine (Cymbalta) [address] capsule Indications: Depressive disorder (CMS/HCC) TAKE 1 CAPSULE BYMOUTH DAILY 100 capsule 1 02/11/2024 ActiveStart: 49-78-6150rvlu 30 mg by mouth once dailyDuloxetine Active 30 MG PO Daily March 22, 2024 12:00am in addition to 60mg30 actuat fluticasone furoate 0.1 mg/actuat / umeclidinium 0.0625 mg/actuat / vilanterol 0.025 mg/actuat dry powder inhaler (12 sources)Anticholinergic, Corticosteroid, beta2-Adrenergic AgonistStart: 02-01-2023 End: 75-44-0857hgsi 1 puff(s) by inhalation in the morning Rwipgjpzqdm-Jpcqiuoem-Vvrqnv (Trelegy Ellipta) 100-62.5-25 MCG/ACT aerosol powder Indications: Acute exacerbation of chronic obstructive pulmonary disease (CMS/HCC) Inhale 1 puff in the morning. 1 each 02/01/2023 08/12/2024 Discontinued (Therapy completed)furosemide 20 mg oral tablet (20 sources)Loop DiureticStart: 39-25-3968luln 1 tablet by mouth once daily furosemide (Lasix) 20 MG tablet Indications: Essential hypertension TAKE 1 TABLET(20 MG) BY MOUTH DAILY 100 tablet 1 11/04/2024 ActiveStart: 02-11-2024 End: 04-38-0857vvii 1 tablet by mouth once dailyfurosemide (Lasix) 20 MG tablet Indications: Essential hypertension (CMS/HCC) Take 1 tablet (20 mg)by mouth Daily 100 tablet 1 04/14/2024 Activegabapentin 300 mg oral capsule (14 sources)Anti-epileptic AgentStart: 09-11-2024 End: 62-64-2008fyrt 1 capsule by mouth in the morning, then take 1 capsule by mouth in the evening, then take 1 capsule by mouth at bedtimegabapentin (Neurontin) 300 MG capsule Indications: Herpes zoster without complication Take 1 capsule (300 mg) by mouth in the morning and 1 capsule (300 mg) in the evening and 1 capsule (300 mg) before bedtime. Do all this for 10 days. 30 capsule 09/11/2024 ActiveStart: 12-16-2022 End: 79-81-5181tppvzebgjw (Neurontin) 300 MG capsule 12/16/2022 04/28/2024 Discontinued (Other)loratadine 10 mg oral tablet (20 sources)loratadine (Claritin) 10 MG tablet 1 (one) time each day at the same time. ActivemetFORMIN hydrochloride 500 mg oral tablet (20 sources)BiguanideStart: 87-85-1238pilu 1 tablet by mouth once daily at mealtimemetFORMIN (Glucophage) 500 MG tablet Indications: Hypertriglyceridemia TAKE 1 TABLET BY MOUTH DAILYWITH A MEAL 100 tablet 3 08/19/2024 ActiveStart: 26-77-2837vyur 1 tablet by mouth once daily at mealtimemetFORMIN (Glucophage) 500 MG tablet Indications: Hypertriglyceridemia (CMS/HCC) TAKE ONE TABLET BY MOUTH DAILY WITH A MEAL 100 tablet 1 02/11/2024 ActivemethylPREDNISolone (2 sources)CorticosteroidStart: 08-12-2024 End: 15-98-3664rpejphCMWKGXOkfjgf (Medrol Dospak) 4 MG tablets Indications: Pansinusitis, unspecified chronicity Follow schedule on package instructions 21 tablet 08/12/2024 08/19/2024 Activemontelukast 10 mg oral tablet (20 sources)Leukotriene Receptor AntagonistStart: 89-55-4946pxbuiliyeze (Singulair) 10 MG tablet 09/16/2023 Qmqryeampulkgtqrcz-aywe-aoqqbzyh-folic acid (Centrum Silver, geriatric,) tablet (20 sources)lntadjewrpbq-lfqt-trwvfgsa-folic acid (Centrum Silver, geriatric,) tablet as directed Orally Activenystatin 308294 unt/ml oral suspension (20 sources)Polyene AntifungalStart: 05-17-4856tykbhvre (Mycostatin) 805337 UNIT/ML suspension 09/07/2022 Activeofloxacin 3 mg/ml ophthalmic solution (6 sources)Quinolone AntimicrobialStart: 03-22-2024 End: 58-35-2765zdqwegsgc (Ocuflox) 0.3 % ophthalmic solution Four times daily 03/22/2024 04/28/2024 Discontinued (Therapy completed)Start: 26-78-6869ywgo 1 drop(s) into the eye(s) four times dailyOfloxacin Active 2 DROPS OPHTHALMIC Four times daily 12 03March 22, 2024 12:00am right eyeOLANZapine 10 mg oral tablet (20 sources)Atypical AntipsychoticStart: 34-69-1335amdr 1 tablet by mouth once dailyOLANZapine (ZyPREXA) 10 MG tablet Indications: Adjustment disorder with anxiety TAKE 1 TABLET BY MOUTH DAILY 100 tablet 3 08/19/2024 ActiveStart: 76-38-2426zrdx 1 tablet by mouth once dailyOLANZapine (ZyPREXA) 10 MG tablet Indications: Adjustment disorder with anxiety (CMS/HCC) TAKE 1 TABLET BY MOUTH DAILY 100 tablet 1 02/11/2024 Activeomeprazole 40 mg delayed release oral capsule (20 sources)Proton Pump InhibitorStart: 04-14-2024 End: 26-39-0273pwnv 1 capsule by mouth once daily before mealtimeomeprazole (PriLOSEC) [address] capsule Indications: Gastroesophageal reflux disease without esophagitis TAKE 1 CAPSULE BY MOUTH EVERY MORNING BEFORE MEALS, DO NOT CRUSH OR CHEW 100 capsule 3 07/21/2024 Activeondansetron 4 mg oral tablet (11 sources)Serotonin-3 Receptor AntagonistStart: 01-17-2024 End: 04-95-8356ljid 1 tablet by mouth every six hours as needed for nausea and vomitingondansetron (Zofran) 4 MG tablet TAKE 1 TABLET BY MOUTH EVERY 6 HOURS NEEDED FOR NAUSEA AND VOMITING 01/17/2024 08/12/2024 Discontinued (Therapy completed)Ozempic, 1 MG/DOSE, 4 MG/3ML solution pen-injector (4 sources)Start: 10-09-2024 End: 22-38-2291Jfbqupi, 1 MG/DOSE, 4 MG/3ML solution pen-injector 10/09/2024 04/07/2025 Discontinued (Therapy completed)Start: 86-97-3253Cnrykzj, 1 MG/DOSE, 4 MG/3ML solution pen-injector 10/09/2024 Activepotassium chloride 10 meq extended release oral tablet (20 sources)potassium chloride CR (Klor-Con) 10 MEQ ER tablet every 12 (twelve) hours. Activerimegepant 75 mg disintegrating oral tablet (20 sources)Start: 60-18-8727vtle 1 tablet by mouth every other dayRimegepant Sulfate (Nurtec) 75 MG tablet dispersible Indications: Migraine without aura and withoutstatus migrainosus, not intractable DISSOLVE 1 TABLET BY MOUTH EVERY OTHER DAY FOR PREVEBTATIVE 15 tablet 2 05/18/2025 ActiveStart: 12-29-2024 End: 37-75-0671hfyc 1 tablet by mouth every other dayRimegepant Sulfate (Nurtec) 75 MG tablet dispersible Indications: Migraine without aura and withoutstatus migrainosus, not intractable DISSOLVE 1 TABLET BY MOUTH EVERY OTHER DAY FOR PREVENTATIVE 15 tablet 2 12/29/2024 05/18/2025 DiscontinuedStart: 10-23-2023 Rimegepant Sulfate (Nurtec) 75 MG tablet dispersible Indications: Migraine without aura and withoutstatus migrainosus, not intractable (CMS/HCC) Take 1 every other day for preventative 30 tablet 11 10/23/2023 ActiveSemaglutide (1 source)Start: 20-32-1753gzmrfv 1 mg by subcutaneous injection every week Semaglutide (Ozempic) 1 mg/dose (4 mg/3 mL) pen injector Active 1 MG SUBCUT every week February 12:00am1 mg dose 1.5 ml semaglutide 1.34 mg/ml pen injector (20 sources)Start: 11-05-2024 End: 94-40-2220ofdiqy 1 mg by subcutaneous injection every weeksemaglutide (Ozempic, 1 MG/DOSE,) 2 MG/1.5ML solution pen-injector Indications: Type 2 diabetes mellitus without complication, without long-term current use of insulin (HCC) Inject 1 mg under the skin 1 (one) time per week 3 mL 5 11/05/2024 04/07/2025 Discontinued (Therapy completed)Start: 10-23-2023 End: 31-73-2784zfhknt 1 mg by subcutaneous injection every weeksemaglutide (Ozempic, 1 MG/DOSE,) 2 MG/1.5ML solution pen-injector Indications: Type 2 diabetes mellitus without complication, without long-term current use of insulin (CMS/HCC) Inject 1 mg under theskin 1 (one) time per week 3 mL 5 04/28/2024 ActiveSemaglutide, 2 MG/DOSE, 8 MG/3ML solution pen-injector (5 sources)Start: 04-07-2025 End: 04-61-7091ygeszc 2 mg by subcutaneous injection every weekSemaglutide, 2 MG/DOSE, 8 MG/3ML solution pen-injector Indications: Type 2 diabetes mellitus with diabetic nephropathy, without long-term current use of insulin (HCC) Inject 2 mg under the skin 1 (one) time per week 9 mL 04/07/2025 07/16/2025 Active traMADol hydrochloride 50 mg oral tablet (20 sources)Opioid AgonistStart: 62-29-3850hlqj 1 tablet by mouth four times daily as neededtraMADol (Ultram) 50 MG tablet Indications: Other chronic pain TAKE ONE TABLET BY MOUTH FOUR TIMES A DAY NEEDED 120 tablet 02/22/2023 Active valACYclovir 1000 mg oral tablet (3 sources)Herpesvirus Nucleoside Analog DNA Polymerase Inhibitor, Herpes Simplex Virus Nucleoside Analog DNA Polymerase Inhibitor, Herpes Zoster Virus Nucleoside Analog DNA Polymerase InhibitorStart: 09-11-2024 End: 06-71-9941vpyv 1 tablet by mouth in the morning, then take 1 tablet by mouth in the evening, then take 1 tablet by mouth at bedtimevalACYclovir (Valtrex) 1 g tablet Indications: Herpes zoster without complication Take 1 tablet (1,000 mg) by mouth in the morning and 1 tablet (1,000 mg) in the evening and 1 tablet (1,000 mg) before bedtime. Do all this for 7 days. 21 tablet 09/11/2024 09/18/2024 Activezinc gluconate 50 mg oral tablet (10 sources)take 1 tablet by mouth once dailyzinc gluconate 50 MG tablet Take 50 mg by mouth Daily Active Problems Active Problems Problem ClassificationProblemDateDocumented DateEpisodic/ChronicAdjustment disorders (20 sources)Adjustment disorder with anxious mood; Translations: [Adjustment disorder with anxiety]Onset: 528349-91-8133DrdmfbiThdlexb disorders (8 sources)Anxiety; Translations: [Anxiety disorder, unspecified]06-18-2024 ChronicAsthma (20 sources)Asthma; Translations: [Unspecified asthma, uncomplicated]Onset: 549552-65-2363TtmzpzvFlberyu kidney disease (20 sources)Chronic kidney disease stage 3A ; Translations: [Stage 3a chronic kidney disease (HCC)]Onset: 961521-58-9558XjpleefUwyikyj obstructive pulmonary disease and bronchiectasis (20 sources)Emphysematous bronchitis; 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]Onset: 12-26-2022 Resolved: 132481-49-2228XfttkmsCievzbrfwtpra of surgical procedures or medical care (20 sources)Postsurgical menopause; Translations: [Asymptomatic postprocedural ovarian failure]Onset: 865545-56-8404VskxedjWrizhrki mellitus with complications (20 sources)Renal disorder due to type 2 diabetes mellitus; Translations: [Type 2 diabetes mellitus with diabetic nephropathy]Onset: hronic Diabetes mellitus without complication (20 sources)Type 2 diabetes mellitus; Translations: [Type 2 diabetes mellitus without complications]Onset: 156967-78-1482BrygyjcKcytyytsa of lipid metabolism (20 sources)Hyperlipidemia; Translations: [Hyperlipidemia, unspecified]Onset: 327093-47-5521RecrluuTszbafsaxw disorders (2 sources)Gastroesophageal reflux disease without esophagitis; Translations: [Gastro-esophageal reflux disease without esophagitis]91-25-9436KtkhxtkPqxbmpvxw hypertension (20 sources)Hypertensive disorder; Translations: [Essential (primary) hypertension]Onset: 054790-04-7428YvhdsgeXchchjqv; including migraine (20 sources)Migraine without aura, not refractory ; Translations: [Migraine without aura, not intractable, without status migrainosus]Onset: 12-26-2022 Resolved: 509610-33-7644XrfxnpdMergjbpgauuky and screening for infectious disease (2 sources)Vaccination needed; Translations: [Encounter for immunization] 98-60-0326FgvhsrpsTepuyxjezc disorders (20 sources)Menopausal flushing; Translations: [Menopausal and female climacteric states]Onset: 576240-49-2455OrsfzysJwoi disorders (20 sources)Depressive disorder; Translations: [Depression]Onset: 12-26-2022 06-99-2031UontkigMoimb gastrointestinal disorders (20 sources)Irritable bowel syndrome with diarrhea; Translations: [Irritable bowel syndrome with diarrhea]Onset: 951376-88-0083ZugctreCjgfb inflammatory condition of skin (20 sources)Psoriasis; Translations: [Psoriasis, unspecified]Onset: 12-26-2022 90-50-7349JfhjcnxCqbzv nervous system disorders (1 source)Other chronic pain; Translations: [OTHER CHRONIC PAIN]Onset: 74-81-1975PteqgroJhehs nervous system disorders (20 sources)Chronic pain; Translations: [Other chronic pain]Onset: 12-26-2022 25-45-8928HddodzuSnpzs nervous system disorders (20 sources)Left-sided piriformis syndrome; Translations: [Lesion of sciatic nerve, left lower limb]Onset: 672891-49-1646NksazttEmsim nervous system disorders (20 sources)Sciatic nerve lesion; Translations: [Lesion of sciatic nerve, unspecified lower limb]Onset: 972332-28-9059DaiqxujNxzio nervous system disorders (2 sources)Tremor; Translations: [Tremor, unspecified]26-44-5747SgurvnnmBhdoi nutritional; endocrine; and metabolic disorders (20 sources)Obesity caused by energy imbalance; Translations: [Morbid (severe) obesity due to excess calories]Onset: 889608-40-6902KfzbodxHhdiz nutritional; endocrine; and metabolic disorders (1 source)Morbid obesity; Translations: [Morbid (severe) obesity due to excess calories]Onset: 895932-78-2923DnxojtpIxuex screening for suspected conditions (not mental disorders or infectious disease) (2 sources)Patient encounter status; Translations: [Encounter for screening mammogram for malignant neoplasm of breast]40-94-4720VicpqutrRoygb upper respiratory disease (20 sources)Allergic rhinitis; Translations: [Allergic rhinitis, unspecified] Onset: 168316-99-9382HcpvuxuAkthp upper respiratory disease (2 sources)Allergic rhinitis due to pollen; Translations: [Allergic rhinitis due to pollen]15-27-3876YnwepueDfivw upper respiratory infections (2 sources)Pansinusitis; Translations: [Chronic pansinusitis]43-28-2866Thynxix Peripheral and visceral atherosclerosis (2 sources)Atherosclerosis of aorta; Translations: [Atherosclerosis of aorta] 25-94-1610ZuqrjdfCgbekljiu and history of mental health and substance abuse codes (2 sources)Ex-smoker; Translations: [Personal history of nicotine dependence] 67-52-8242RsxifjrxEcilzobnyxq; intervertebral disc disorders; other back problems (20 sources)Spondylosis without myelopathy or radiculopathy, lumbar region; Translations: [Sacroiliitis, not elsewhere classified]Onset: 42-78-2966Zjajreo Spondylosis; intervertebral disc disorders; other back problems (11 sources)Lumbago with sciatica, left side; Translations: [Intervertebral disc disorders with radiculopathy, lumbar region]Onset: 549542-09-9520Kcathifn Unclassified (1 source)CONTACT W/AND (SUSP) EXPOS COVID-19; Translations: [CONTACT W/AND (SUSP) EXPOS COVID-19]Onset: 70-14-3401Mrhizantyizk (1 source)ACUTE COUGH; Translations: [ACUTE COUGH]Onset: 38-61-8204Dbjkgpklcepq (3 sources)LOW BACK PAIN, UNSPECIFIED; Translations: [LOW BACK PAIN, UNSPECIFIED]Onset: 77-22-5216Nbqifmbbyokp (5 sources)Patient on antidepressant monitoring planOnset: 339478-76-3446 Unclassified (5 sources)Baseline PHQ-9Onset: 349989-63-0964Qvwdp infection (2 sources)Herpes zoster without complication; Translations: [Zoster without complications]22-71-7988Nfmbhdtz Past or Other Problems Problem ClassificationProblemDateDocumented DateEpisodic/ChronicComa; stupor; and brain damage (20 sources)Daytime somnolence; Translations: [Somnolence]Onset: 12-26-2022 90-23-5130NidzlszeZszheltjpr associated with dizziness or vertigo (20 sources)Dizziness; Translations: [Dizziness and giddiness]Onset: 04-09-2023 26-73-8115TdezgqzlZnpfgaki mellitus without complication (20 sources)Prediabetes; Translations: [Prediabetes]Onset: 12-26-2022 Resolved: 822997-74-5645AorjqvpbPfjxn acquired deformities (20 sources)Leg length inequality; Translations: [Unequal limb length (acquired), unspecified site]Onset: 662636-48-6656EfnifjfyBslqg acquired deformities (1 source)Unequal limb length (acquired), unspecified site; Translations: [Unequal leg length (acquired)]Onset: 782839-93-1314MizcdeboFwjbr aftercare (1 source)Other care home (current) drug therapy; Translations: [OTH DETENTION CURRENT DRUG THERAPY]Onset: 36-12-4225XmozvrntExzqe aftercare (20 sources)Long-term current use of inhaled steroid; Translations: [long-term (current) use of inhaled steroids]Onset: 291887-23-7327OyfckstkJcjkh circulatory disease (20 sources)Elevated blood-pressure reading without diagnosis of hypertension; Translations: [Elevated blood-pressure reading, without diagnosis of hypertension]Onset: 12-26-2022 Resolved: 774360-08-9838KrhdwhucPncsm circulatory disease (20 sources)Elevated blood pressure; Translations: [Elevated blood-pressure reading, without diagnosis of hypertension]Onset: 12-26-2022 Resolved: 055835-32-9753KswsopacHkydn connective tissue disease (5 sources)Other muscle spasm; Translations: [OTHER MUSCLE SPASM]Onset: 35-34-7327EieavjzjUhump diseases of kidney and ureters (10 sources)Cyst of kidney; Translations: [Cyst of kidney, acquired]Onset: 270960-82-6224QphskuoeFuhdq lower respiratory disease (1 source)Wheezing; Translations: [WHEEZING]Onset: 01-74-5769KdgufiixXtagw lower respiratory disease (20 sources)Lung field abnormal; Translations: [Other nonspecific abnormal finding of lung field]Onset: 924054-38-9988EvriugoiQwxvh nutritional; endocrine; and metabolic disorders (20 sources)Obese class I; Translations: [Obesity (BMI 30.0-34.9)]Onset: 12-26-2022 Resolved: 802345-53-6361XjifvlfJscph nutritional; endocrine; and metabolic disorders (20 sources)Body mass index 30+ - obesity; Translations: [Body mass index (BMI) 37.0-37.9, adult]Onset: 04-14-2024 Resolved: 688807-33-3505GwjzgkwUhkvlncu codes; unclassified (4 sources)Pain, unspecified; Translations: [PAIN UNSPECIFIED]Onset: 09-07-2022 EpisodicResidual codes; unclassified (1 source)Acquired absence of other specified parts of digestive tract; Translations: [ACQ ABSENCE OTH PART DIGESTV TRACT]Onset: 07-90-5495Jlxnaens Residual codes; unclassified (1 source)Acquired absence of both cervix and uterus; Translations: [ACQUIRED ABSENCE BOTH CERVIX AND UTERUS]Onset: 87-46-9834XpxintylXdgruhpa codes; unclassified (1 source)Acquired absence of ovaries, unilateral; Translations: [ACQUIRED ABSENCE OVARIES UNILATERAL]Onset: 16-57-4137TprowgcpFmwqmoko codes; unclassified (20 sources)Flushing; Translations: [Flushing]Onset: 12-26-2022 Resolved: 898611-36-9777ZtlokugmErkvjapkk-fsshmdg disorders (20 sources)Nicotine dependence, cigarettes, uncomplicated; Translations: [Smoker]Onset: 05-17-2022 Resolved: 252499-86-9441WrstzqjCjepqtpfbziv (1 source)LOW BACK PAIN, UNSPECIFIED; Translations: [LOW BACK PAIN, UNSPECIFIED] Onset: 05-16-2022 Results Test NameValueInterpretationReference RangeFacilityXR LUMBAR SPINE MIN 4Von 80-48-7402[place] [id number] XRay Report Signed Patient: DHARA DALLAS MR#: [id number] : 1970 Acct:[id number] Age/Sex: 54 / F ADM Date: 04/23/25 Loc: RAD Attending Dr: Tyra Graves TRANSFORMATION SPECIALIST Ordering Physician: Tyra Graves NP Date of Service: 04/23/25 Procedure(s): XR lumbar spine min 4V Accession Number(s): [id number] cc: SANDY YOUSSEF Anna NP [place] [id number] Patient Name: DHARA DALLAS MRN: [id number] date: 1970 Sex: F Assigned Patient Location: Current Patient Location: Accession/Order Number: [id number] Exam Date: 04/23/2025 08:55 Report Date: 04/23/2025 [...] Jr., D.O. 04/23/2025 9:48 AM Dictation Location: [place] [address] Electronically authenticated by: [id number] Y Date: 04/23/2025 09:48 Dictated By: Rafiq Rai M.D. Signed By: 04/23/2550 DD/ 7 TD/TT: Elementary Educator:TBHRadiology, Radiologist, - 04/23/2025 The [place] [id number] XRay Report Signed Patient: DHARA DALLAS MR#: [id number] : 1970 Acct:[id number] Age/Sex: 54 / F ADM Date: 04/23/25 Loc: RAD Attending Dr: Tyra Graves NP Ordering Physician: Tyra Graves NP Date of Service: 04/23/25 Procedure(s): XR lumbar spine min 4V Accession Number(s): [id number] cc: SANDY YOUSSEF ; Tyra Graves NP The [place] [address] Patient Name: DHARA DALLAS MRN: [id number] date: 1970 Sex: F Assigned Patient Location: Current Patient Location: Accession/Order Number: [id number] Exam Date: 04/23/2025 08:55 Report Date: 04/23/2025 [...] Jr., D.O. 04/23/2025 9:48 AM Dictation Location: [place] [address] Electronically authenticated by: [id number] Y Date: 04/23/2025 09:48 Dictated By: Rafiq Rai M.D. Signed By: 04/23/25949 DD/ 7 TD/TT: Elementary Educator: SAMREEN HealthcareRadiology Study observation (narrative)NOMS HealthcareXR LUMBAR SPINE MIN 4VOrdered By: Radiologist Radiology on 67-23-3886QLXW Healthcare Work Phone: XR SACROILIAC JOINTon 28-13-7307[address] [address] XRay Report Signed Patient: DHARA DALLAS MR#: [id number] : 1970 Acct:[id number] Age/Sex: 54 / F ADM Date: 04/23/25 Loc: [facility] Attending Dr: Tyra Graves NP Ordering Physician: Tyra Graves NP Date of Service: 04/23/25 Procedure(s): XR sacroiliac joint ELIANE Accession Number(s): [id number] cc: SANDY YOUSSEF ; Tyra Graves NP [address] [id number] Patient Name: DHARA DALLAS MRN: [id number] date: 1970 Sex: F Assigned Patient Location: Current Patient Location: Accession/Order Number: [id number] Exam Date: 04/23/2025 08:55 Report Date: 04/23/2025 [...] Jr., D.O. 04/23/2025 9:47 AM Dictation Location: [place] [address] Electronically authenticated by: [id number] Y Date: 04/23/2025 09:47 Dictated By: Rafiq Rai M.D. Signed By: 04/23/2549 DD/ TD/TT: Elementary Educator:TBHRadiology, Radiologist, - 04/23/[address] [address] XRay Report Signed Patient: DHARA DALLAS MR#: [id number] : 1970 Acct:[id number] Age/Sex: 54 / F ADM Date: 04/23/25 Loc: [facility] Attending Dr: Tyra Graves NP Ordering Physician: Tyra Graves NP Date of Service: 04/23/25 Procedure(s): XR sacroiliac joint ELIANE Accession Number(s): [id number] cc: SANDY YOUSSEF Anna NP The [place] [id number] Patient Name: DHARA DALLAS MRN: [id number] date: 1970 Sex: F Assigned Patient Location: Current Patient Location: Accession/Order Number: [id number] Exam Date: 04/23/2025 08:55 Report Date: 04/23/2025 [...] Jr., D.O. 04/23/2025 9:47 AM Dictation Location: [place] [address] Electronically authenticated by: [id number] Y Date: 04/23/2025 09:47 Dictated By: Rafiq Rai M.D. Signed By: 04/23/2549 DD/ 6 TD/TT: Elementary Educator: NOMCorine HealthcareRadiology Study observation (narrative)NOMS HealthcareXR SACROILIAC JOINTOrdered By: Radiologist Radiology on 65-88-9957CUIIEllis Fischel [facility] Center Work Phone: Laboratory - Hematology and Cell countson 04-07-2025 HbA1c (Bld) [Mass fraction]5.5 %[facility] CenterNo Panel Informationon 04-07-2025 Interpretation and review of laboratory resultsNoChildren's Hospital of Wisconsin– MilwaukeeALBUMIN, RANDOM URINE W/CREATININEon 73-75-0724WPNQTIP, URINE0.4 mg/dL NormalSee Note:Quest DiagnosticsComment on above:Result Comment: Reference Range: Reference Range Not establishedPerformed By: #### 6517 #### [facility] [address], [address] [place] [address] Verification Manager: Christiano Escobar MDALBUMIN/CREATININE RATIO, RANDOM URINE9 mg/g creatNormal<30Quest DiagnosticsComment on above:Result Comment: The ADA defines abnormalities in albumin excretion as follows: Albuminuria Category Result (mg/g creatinine) Normal to Mildly increased <30 Moderately increased 30-299 Severely increased > OR = 300 The ADA recommends that at least two of three specimens collected within a 3-6 month period be abnormal before considering a patient to be within a diagnostic category.Performed By: #### 6517 #### [facility] [address], [address] [place] [address] Verification Manager: Christiano Escobar MDCreatinine (U) [Mass/Vol]47 mg/gQKbrjwx81-575 [facility] DiagnosticsComment on above:Performed By: #### 6517 #### [facility] [address], [address] [place] [address] Verification Manager: Christiano Escobar MDMicroalbumin/Creatinine ratio panel (U)on 76-30-7224Cgpvkxz DL <= 20 mg/L (U) [Mass/Vol]0.4 mg/dLSee Note:[facility] Comment on above:Reference Range: Reference Range Not established Albumin/Creatinine (U) [Mass ratio]9NINFEllis Fischel Cancer CenterComment on above: The ADA defines abnormalities in albumin excretion as follows: Albuminuria Category Result (mg/g creatinine) Normal to Mildly increased <30 Moderately increased 30-299 Severely increased > OR = 300 The ADA recommends that at least two of three specimens collected within a 3-6 month period be abnormal before considering a patient to be within a diagnostic category. Creatinine (U) [Mass/Vol]47 mg/dL20 - 275 mg/dLAshland City Medical Centerg Organization Information Site ID: QPT Name: [employer] [facility] Address: [address] [place] [address], [address] [place] [id number] Director: Christiano Escobar MDSSM De[facility] HealthcareLaboratory - Hematology and Cell countson 94-46-1788QpG7d (Bld) [Mass fraction]5.7 %[facility] Panel Informationon 30-07-1883Estffoqrfsesdn and review of laboratory results NormalGood Hope HospitalCREATININEon 37-13-3757Pajkismvee [Mass/Vol] 1.03 mg/dLCritically high0.55-1.02[facility]odi HospitalComment on above: Performed By: #### CREA #### [facility] [address] [place] [address] Dr. Radha WoodGFR-AF FILIPINO>60Normal>=60[facility] HospitalComment on above:Performed By: #### CREA #### [facility] [address] [place] [address] Dr. Radha WoodGFR-NON AF ICAYCDJK73 mL/min/1.09d1Cvfnkpcgdc low>=60[facility] HospitalComment on above:Performed By: #### CREA #### [facility] [address] [place] [address] Dr. Radha GalindoXR CHEST 2 Von 52-63-1314GT CHEST 2 VEXAM: XR CHEST 2 V HISTORY: Pneumonia COMPARISON: None. TECHNIQUE: PA and lateral views of the chest. FINDINGS: The cardiomediastinal silhouette is normal. Airspace disease of the lingula. There is no pneumothorax. No pleural effusion is noted. The osseous structures are intact. IMPRESSION: Airspace disease of the lingula. Electronically authenticated by: AURORA HERNANDEZ Date: 2022-12-27 11:35[facility] Healthcare SystemMRI MANAN WO CONon 30-41-0552YFS MANAN WO CONEXAMINATION: MRI LSPINE WO CON HISTORY: Lumbar spondylosis [...] Electronically authenticated by: BRANDON CRUZ Date: 2022-12-15 12:14NoDayton VA Medical CenterRESPIRATORY PANEL PLUSon 88-79-0914QiqzpwdybwYvz detectedNormal NOT DETECTEDCleveland Clinic Ak[facility] General Lodi HospitalComment on above:Performed By: #### RSPLUS ####[facility] Vpuugpvmhj34[address] [place] [id number]. Radha Kiser. ParapertusisNot detectedNormalNOT DETECTEDThe [facility] Comment on above:Performed By: #### RSPLUS ####[facility] Vvikdwtrxt2773 [place] [address]Dr. Yilan ChangB. PertussisNot detected NormalNOT DETECTEDThe [facility] HospitalComment on above:Performed By: #### RSPLUS ####[facility] Aphgrdqtoc72[address] [place] [address]Dr. Yilan ChangChlamydia PneumoniaeNot detectedNormalNOT DETECTEDThe [facility] HospitalComment on above:Performed By: #### RSPLUS ####[facility] Aqwaykimsy475[address] [place] [address]Dr. Yiricky Galindo Coronavirus 229ENot detectedNormalNOT DETECTEDThe [facility] HospitalComment on above:Performed By: #### RSPLUS ####[facility] Hujqd[address]mpw[address] [place], [place] [address]Dr. Yilan ChangCoronavirus VIF2Dyi detectedNormalNOT DETECTEDThe [facility] HospitalComment on above:Performed By: #### RSPLUS ####[facility] Towongslnl[address] [place], [place] [address]Dr. Yilan ChangCoronavirus BA43Ckx detectedNormalNOT DETECTEDThe [facility] Comment on above:Performed By: #### RSPLUS ####[facility] Rbitnhnzoq[address] [place], [place] [address]Dr. Yilan ChangCoronavirus YQ28Wre detected NormalNOT DETECTEDThe [facility] HospitalComselect [facility] on above:Performed By: #### RSPLUS ####[facility] Tooxheluvh[address] [place], [place] [address]Dr. Yilan ChangInfluenza A H1Not detectedNormalNOT DETECTEDThe [facility] HospitalComselect specialty hospital[facility] on above:Performed By: #### RSPLUS ####[facility] Egfpwowliq[address] [place], [place] [address]Dr. Yilan ChangInfluenza A H1 2009Not detectedNormalNOT DETECTEDThe [facility] HospitalComment on above: Performed By: #### RSPLUS ####[facility] Tcywnnusgz[address] [place], [place] [address]Dr. Yilan ChangInfluenza A H3Not detectedNormalNOT DETECTEDThe [facility] HospitalComment on above:Performed By: #### RSPLUS ####[facility] Cvtupkxybz[address] [place], [place] [address]Dr. Radha GalindoInfluenza BNot detectedNormalNOT DETECTEDThe [facility] HospitalComment on above:Performed By: #### RSPLUS ####[facility] Lhzrltunfq67[address] [place], [place] [address]Dr. Radha GalindoMetapneumovirusNot detectedNormal NOT DETECTEDThe [facility] HospitalComment on above:Performed By: #### RSPLUS ####[facility] Vyfqziuovv[address] [place], [place] [address]Dr. Radha GalindoMycoplas. PneumoniaeNot detectedNormalNOT DETECTEDThe [facility] HospitalComment on above:Performed By: #### RSPLUS ####[facility] Mdcmmginvw13[address] [place], [place] [address]Dr. Radha GalindoParainfluenza 1Not detectedNormalNOT DETECTEDThe [facility] HospitalComment on above:Performed By: #### RSPLUS ####[facility] Nliccyzkxq[address] [place], [place] [address]Dr. Radha GalindoParainfluenza 2Not detectedNormalNOT DETECTEDThe [facility] HospitalComment on above:Performed By: #### RSPLUS ####[facility] Zmipbmsoyl55[address] [place], [place] [address]Dr. Radha Galindo Parainfluenza 3Not detectedNormalNOT DETECTEDThe [facility] HospitalComment on above:Performed By: #### RSPLUS ####[facility] Zsadogjznj[address] [place], [place] [address]Dr. Radha GalindoParainfluenza 4Not detectedNormalNOT DETECTEDThe [facility] HospitalComment on above:Performed By: #### RSPLUS ####[facility] Yvuhbuskik[address] [place], [place] [address]Dr. Radha ChangRhino/EnterovirusNot detectedNormalNOT DETECTEDThe [facility] Comment on above:Performed By: #### RSPLUS ####[facility] Seqvzzdpnw2259 [place] [address]Dr. Radha MateoRP2 Header 1RESPIRATORY PANEL: VIRUSESNoDayton VA Medical CenterComment on above:Performed By: #### RSPLUS ####[facility] Khacltxbqp2914 [place] [address]Dr. Radha GalindoRP2 Header 2RESPIRATORY PANEL: BACTERIANoDayton VA Medical CenterComment on above:Performed By: #### RSPLUS ####[facility] Fenaebbptu4225 [place] [address]Dr. Radha GalindoRSVNot detectedNormalNOT DETECTEDThe [facility] HospitalComselect specialty hospital[facility] on above:Performed By: #### RSPLUS ####[facility] Opdwmpsrep8502 [place] [address]Dr. Radha GalindoLehldMWHH-RfK-1 (COVID-19) RNA SUSAN+probe Ql (Unsp spec)Not detectedNormalNOT DETECTEDThe [facility] HospitalComselect specialty hospital[facility] on above:Performed By: #### RSPLUS ####[facility] Hwgpoatzap[address] [place], [place] [address]Dr. Judyricky ChangXR CHEST 2 Von 98-65-6765GP CHEST 2 VEXAMINATION: XR CHEST 2 V HISTORY: Cough ; acute cough, [...] Electronically authenticated by: BRANDON CRUZ Date: 2022-09-07 12:18[facility] AUTO DIFFon 08-83-4503RBLM #0.1 103/ulNormal0.0-0.1The [facility] on above:Performed By: #### CBC ####[facility] Nwlmhncndr[address] [place], [place] [address]Dr.Yilan ChangBasophils/100 WBC (Bld)0.6 %Normal0.2-2.0The [facility] HospitalComment on above:Performed By: #### CBC ####[facility] Jidrysvhkz84[address] [place], [place] [address]Dr.Radha ChangEO #0.2 103/ulNormal0.0-0.7The [facility] HospitalComment on above:Performed By: #### CBC ####[facility] Ggqruprysd0884[address] [place], [place] [address]Dr.Radha ChangEosinophils/100 WBC (Bld)1.3 %Normal 0.9-7.0The [facility] HospitalComment on above:Performed By: #### CBC ####[facility] Jjnliraqov0960[address] [place], [place] [address]Dr.Judyricky Galindo Erythrocyte distribution width (RBC) [Ratio]14.6 %Xoftup96.0-15.0The [facility] HospitalComment on above:Performed By: #### CBC ####[facility] Odxrthfcli[address] [place], [place] [address]Dr.Radha ChangHematocrit (Bld) [Volume fraction]45.1 %Sctlxb59.0-48.0The [facility] HospitalComment on above:Performed By: #### CBC ####[facility] Sjnwabbnml[address] [place], [place] [address]Dr.Radha ChangHemoglobin (Bld) [Mass/Vol]14.9 g/dL Cketln90.0-16.0The [facility] HospitalComment on above:Performed By: #### CBC ####[facility] Mtphdwvjpp20[address] [place], [place] [address]Dr. Radha ChangIG #0.06 10e3/ulCritically high0.00-0.03The [facility] HospitalComment on above:Performed By: #### CBC ####[facility] Jpibgjrkjc028[address] [place], [place] [address]Dr.Radha ChangIG %0.4 %Normal0.0-0.5The [facility] HospitalComment on above:Performed By: #### CBC ####[facility] Kcjgjimcsi5259 [place] [address]Dr.Radha GalindoLYMPH #3.7 103/ulNormal1.2-3.8The [facility] HospitalComment on above:Performed By: #### CBC ####[facility] Buufmejlnn2225 [place] [address]Dr. Radha GalindoLymphocytes/100 WBC (Bld)27.7 %Yhoeyw77.5-60.0The [facility] Comment on above:Performed By: #### CBC ####[facility] Dtxqmuwjab15[address] [place], [place] [address]Dr.Radha GalindoMANUAL DIFF REQNONormalThe [facility] HospitalComment on above:Performed By: #### CBC ####[facility] Qxgacumvyv[address] [place], [place] [address]Dr.Radha GalindoMCH (RBC) [Entitic mass]31.6 llOvrxvb24.7-34.0The [facility] HospitalComment on above: Performed By: #### CBC ####[facility] Rxvlhxqlcw0[address] [place], [place] [address]Dr.Radha GalindoMCHC (RBC) [Mass/Vol]33.0 g/dLNormal 29.9-35.2The [facility] HospitalComment on above:Performed By: #### CBC ####[facility] Ujxwghxsmo28[address] [place], [place] [address]Dr. Radha GalindoMCV (RBC) [Entitic vol]95.6 eIHtolhr74.0-99.0The [facility] Comment on above:Performed By: #### CBC ####[facility] Klrnwdrmvt5444 [place] [address]Dr.Radha GalindoMONO #0.7 103/ulNormal0.3-0.8 The [facility] HospitalComment on above:Performed By: #### CBC ####[facility] Nbjrpxxghx64[address] [place], [place] [address]Dr.Radha Galindo Monocytes/100 WBC (Bld)5.3 %Normal1.7-12.0The [facility] HospitalComment on above: Performed By: #### CBC ####[facility] Cycbyzdlmm9084 [place] [address]Dr.Radha GalindoNEUT #8.8 103/ulCritically high1.4-6.5 The [facility] HospitalComment on above:Performed By: #### CBC ####[facility] Bhcqejkcbc9071 [place] [address]Dr.Radha Galindo Neutrophils/100 WBC (Bld)64.7 %Qszcxp57.0-75.0The [facility] HospitalComment on above:Performed By: #### CBC ####[facility] Hccoakcgif0085 [place] [address]Dr.Judyricky MateoPlatelet mean volume (Bld) [Entitic vol] 9.1 fLCritically low9.5-13.5The [facility] HospitalComment on above:Performed By: #### CBC ####[facility] Djkfmawyjj4510 [place] [address]Dr.Radha GalindoPLT318 103/itZmzhft541-976Doh [facility] HospitalComment on above:Performed By: #### CBC ####[facility] Fctnuegpko3701 [place] [address]Dr.Radha GalindoRBC4.72 106/ulNormal4.20-5.40The [facility] HospitalComment on above:Performed By: #### CBC ####[facility] Wicmycxzfe8117 [place] [address]Dr.Radha TasygNSU16.5 103/ul Critically high4.0-11.0The [facility] HospitalComment on above:Performed By: #### CBC ####[facility] Qbxhgigqzf[address] [place], [place] [address]Dr. Radha GalindoCRPon 04-80-5549JYS0.3 mg/dLNormal<=1.0The [facility] HospitalComment on above:Performed By: #### BMP, CRP #### [facility] [address] [place] [address] [address] Radha GalindoPROF CHEM 8 (BAS METB)on 05-87-8475Lrbxe gap [Moles/Vol]13.7 mmol/LNormalThe [facility] HospitalComment on above:Performed By: #### BMP, CRP #### [facility] [address] [place] [address] Dr. Radha GalindoCalcium [Mass/Vol]9.5 mg/dLNormal8.5-10.1[facility] Comment on above:Performed By: #### BMP, CRP #### [facility] [address] [place] [address] Dr. Radha GalindoChloride [Moles/Vol]104 mmol/RIbcugu40-527Yar [facility] Comment on above:Performed By: #### BMP, CRP #### [facility] [address] [place] [address] Dr. Radha GalindoCO2 [Moles/Vol]27.0 mmol/JUeqegt84.0-32.0[facility] Comment on above:Performed By: #### BMP, CRP #### [facility] [address] [place] [address] Dr. Radha GalindoCreatinine [Mass/Vol]1.01 mg/dLNormal0.55-1.02The [facility] HospitalComment on above:Performed By: #### BMP, CRP #### [facility] [address] [place] [address] Dr. Radha WoodGFR-AF FILIPINO>60Normal>=60The [facility] HospitalComment on above:Performed By: #### BMP, CRP #### [facility] [address] [place] [address] Dr. Radha WoodGFR-NON AF YFAQJZUH42 mL/min/1.99j2Rfvqkcmolp low>=60The [facility] HospitalComment on above:Performed By: #### BMP, CRP #### [facility] [address] [place] [address] Dr. Radha GalindoGlucose [Mass/Vol]137 mg/dLCritically sowi96-577Jwu [facility] HospitalComment on above:Performed By: #### BMP, CRP #### [facility] [address] [place] [address] Dr. Radha GalindoPotassium [Moles/Vol]3.7 mmol/LNormal3.5-5.1The [facility] Comment on above:Performed By: #### BMP, CRP #### [facility] [address] [place] [address] [address] Radha GalindoSodium [Moles/Vol]141 mmol/APdgpsd367-489Jmt [facility] Comment on above:Performed By: #### BMP, CRP #### [facility] [address] [place] [address] [address] Radha GalindoUrea nitrogen [Mass/Vol]11.0 mg/dLNormal7.0-18.0The [facility] HospitalComment on above:Performed By: #### BMP, CRP #### [facility] [address] [place] [address] [address] Radha Lim nitrogen/Creatinine [Mass ratio]10.9 mg/mgNormalThe [facility] HospitalComment on above:Performed By: #### BMP, CRP #### [facility] [address] [place] [address] [address] Radha Soliz RATE WESTERGRENon 07-59-9716EMC RATE18 mm/hrNormal<=30The [facility] HospitalComment on above:Performed By: #### SEDR ####[facility] Yrxsbomnjg[address] [place] [address]Dr. Radha GalindoCovid-19 PCR (CVDTB)on 95-71-1612DJXJ-CoV-2 (COVID-19) RNA SUSAN+probe Ql (Unsp spec)Not detectedNormalNOT DETECTEDThe [facility] HospitalComment on above:Result Comment: This test is not yet approved or cleared by the [place] FDA. When there are no FDA-approved or cleared tests available, and other criteria are met, FDA can make tests available under an emergency access mechanism called an Emergency Use Authorization (EUA). The EUA for this test is supported by the [place] of Health and Human Service's (HHS's) declaration [...] of clinical signs and symptoms consistent with SARS-CoV-2.Performed By: #### CVDTBH #### [facility] [address] [place], [place] [address] Dr. Radha GalindoCoazaeld-19 PCR ([facility])on 16-73-6180CIOT-CoV-2 (COVID-19) RNA SUSAN+probe Ql (Unsp spec)Not detectedNormalNOT DETECTEDThe [facility] Comment on above:Result Comment: This test is not yet approved or cleared by the [place] FDA. When there are no FDA-approved or cleared tests available, and other criteria are met, FDA can make tests available under an emergency access mechanism called an Emergency Use Authorization (EUA). The EUA for this test is supported by the [employer] of Health and Human Service's (HHS's) declaration that circumstances exist to justify the emergency use of in vitro diagnostics for the detection and/or diagnosis of the virus that causes COVID- 19. This EUA will remain in effect (meaning [...] of clinical signs and symptoms consistent with SARS-CoV-2.Performed By: #### CVDTBH #### [facility] [address] [place], [place] [address] Dr. Radha Hammeralbumin (with Creat)on 26-37-7465gHVG<1.2LowNNatividad Medical Center Medical SpecialistComment on above:Result Comment: Unable to calculate mALB/Crea ratio, mALB is <1.2 mg/dL mALB reference range not established.Performed By: #### mALBC #### [facility] [address] [place], [place] [address]ZGQUC42 mg/hQMshhqc88-071Vwpdgbqr [place] 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 Comment on above:Performed By: #### mALBC #### [facility] [address] [place], [place] [address]Zzbmkxao Blood Count with Auto Diffon 31-81-7658Pdfjwveaz (Bld) [#/Vol]0.07 10*3/uLNormal0.00-0.20[facility] SpecialistComment on above:Performed By: #### CMP, CBCAD, VITD, LIPD #### [facility] [address] [place], [place] [address]Fdaqibapu/100 WBC (Bld)0.6 %NormalMemorial Health System [facility] Hospital SpecialistComment on above:Performed By: #### CMP, CBCAD, VITD, LIPD #### [facility] [address] [place], [place] [address]Mwsuzhjysyw (Bld) [#/Vol]0.17 10*3/uLNormal0.02-0.50NoTuscarawas Hospital SpecialistComment on above:Performed By: #### CMP, CBCAD, VITD, LIPD #### [facility] [address] [place], [place] [id number]/100 WBC (Bld)1.4 %NormalMemorial [facility] SpecialistComment on above:Performed By: #### CMP, CBCAD, VITD, LIPD #### [facility] [address] [place], [place] [id number] distribution width (RBC) [Ratio]14.1 %Normal 11.0-15.0[facility] SpecialistComment on above:Performed By: #### CMP, CBCAD, VITD, LIPD #### [facility] [address] [place], [place] [id number] (Bld) [Volume fraction]46.1 %Nuqegp38.0-47.0 [facility] SpecialistComment on above:Performed By: #### CMP, CBCAD, VITD, LIPD #### [facility] [address] [place], [place] [id number] (Bld) [Mass/Vol]15.6 g/mVDcde68.6-15.5NoTuscarawas Hospital SpecialistComment on above:Performed By: #### CMP, CBCAD, VITD, LIPD #### [facility] [address] [place], [place] [id number] (Bld) [#/Vol]3.0 10*3/uLNormal0.9-3.9[facility] SpecialistComment on above:Performed By: #### CMP, CBCAD, VITD, LIPD #### [facility] [address] [place] [address], [place] [id number]/100 WBC (Bld)25.9 %NormalNortMemorial Hospital SpecialistComment on above:Performed By: #### CMP, CBCAD, VITD, LIPD #### [facility] [address] [place] [address], [place] [id number] (RBC) [Entitic mass]31.0 rsQirvax19.0-33.0[facility] SpecialistComment on above:Performed By: #### CMP, CBCAD, VITD, LIPD #### [facility] [address] [place], [place] [id number] (RBC) [Mass/Vol]33.8 g/fKNnjasy21.0-36.0[facility] SpecialistComment on above:Performed By: #### CMP, CBCAD, VITD, LIPD #### [facility] [address] [place], [place] [id number] (RBC) [Entitic vol]92 wWZqzmus15-970Kthrszua [place] [facility] SpecialistComment on above:Performed By: #### CMP, CBCAD, VITD, LIPD #### [facility] [address] [place] [address], [place] [id number] (Bld) [#/Vol]0.8 10*3/uLNormal0.2-0.9NoTuscarawas Hospital SpecialistComment on above:Performed By: #### CMP, CBCAD, VITD, LIPD #### [facility] [address] [place], [place] [id number]/100 WBC (Bld)6.8 %NormalMem[facility] SpecialistComment on above:Performed By: #### CMP, CBCAD, VITD, LIPD #### [facility] [address] [place], [place] [id number] (Bld) [#/Vol]7.6 10*3/uLNormal1.5-7.8NoTuscarawas Hospital SpecialistComment on above:Performed By: #### CMP, CBCAD, VITD, LIPD #### [facility] [address] [place], [place] [id number]/100 WBC (Bld)64.4 %NormalNoTuscarawas Hospital SpecialistComment on above:Performed By: #### CMP, CBCAD, VITD, LIPD #### [facility] [address] [place], [place] [id number] mean volume (Bld) [Entitic vol]9.50 fLNormal 7.50-12.50NoTuscarawas Hospital SpecialistComment on above:Performed By: #### CMP, CBCAD, VITD, LIPD #### [facility] [address] [place], [place] [id number] (Bld) [#/Vol]304 10*3/cKYmwxqj852-442Zmhnbgwf [place] [facility] SpecialistComment on above:Performed By: #### CMP, CBCAD, VITD, LIPD #### [facility] [address] [place], [place] [id number] (Bld) [#/Vol]5.03 10*6/uLNormal3.90-5.20NoTuscarawas Hospital SpecialistComment on above:Performed By: #### CMP, CBCAD, VITD, LIPD #### [facility] [address] [place], [place] [id number]-IW75.6 iRLiktsc86.0-50.0[place] 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 Comment on above:Performed By: #### CMP, CBCAD, VITD, LIPD #### [facility] [address] [place], [place] [id number] (Bld) [#/Vol]11.8 10*3/uLHigh3.8-11.0NoTuscarawas Hospital SpecialistComment on above:Performed By: #### CMP, CBCAD, VITD, LIPD #### [facility] [address] [place], [place] [id number] Metabolic Panelon 30-38-3815Dhvnckd [Mass/Vol] 4.9 g/dLNormal3.6-5.1Northern [facility] SpecialistComment on above:Performed By: #### CMP, CBCAD, VITD, LIPD #### [facility] [address] [place], [place] [id number]/Globulin [Mass ratio]2.3 {ratio}Normal1.0-2.5NoTuscarawas Hospital SpecialistComment on above:Performed By: #### CMP, CBCAD, VITD, LIPD #### [facility] [address] [place], [place] [id number] [Catalytic activity/Vol]82 U/QEzoflv49-626Hdxgfado [place] [facility] SpecialistComment on above:Performed By: #### CMP, CBCAD, VITD, LIPD #### [facility] [address] [place], [place] [id number] [Catalytic activity/Vol]44 U/LHigh6-33NoTuscarawas Hospital SpecialistComment on above:Result Comment: 06/29/2021 Female reference range changed.Performed By: #### CMP, CBCAD, VITD, LIPD #### [facility] [address] [place], [place] [id number] gap [Moles/Vol]17 mmol/FSlbwxr42-29Bhfrlxsd [place] [facility] SpecialistComment on above:Result Comment: Effective 08/04/2019 reference range changed.Performed By: #### CMP, CBCAD, VITD, LIPD #### [facility] [address] [place], [place] [id number] [Catalytic activity/Vol]27 U/LNormal9-34N[facility] hospitaln [place] [facility] SpecialistComment on above:Performed By: #### CMP, CBCAD, VITD, LIPD #### [facility] [address] [place], [place] [id number] [Mass/Vol]0.97 mg/dLNormal0.30-1.20[facility] hospitaln [place] [facility] SpecialistComment on above:Performed By: #### CMP, CBCAD, VITD, LIPD #### [facility] [address] [place], [place] [id number]/CREA14 RatioNormal6-22NortMemorial Hospital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 Comment on above:Performed By: #### CMP, CBCAD, VITD, LIPD #### [facility] [address] [place], [place] [id number] [Mass/Vol]10.3 mg/dLHigh8.6-10.2[facility] [place] [facility] SpecialistComment on above:Performed By: #### CMP, CBCAD, VITD, LIPD #### [facility] [address] [place], [place] [id number] [Moles/Vol]101 mmol/AAdlqsd95-335Wcetfdlh [place] [facility] SpecialistComment on above:Performed By: #### CMP, CBCAD, VITD, LIPD #### [facility] [address] [place], [place] [id number] [Moles/Vol]25 mmol/CJzyrvr07-62Jhmnzzmf [place] [facility] SpecialistComment on above:Performed By: #### CMP, CBCAD, VITD, LIPD #### [facility] [address] [place], [place] [id number] [Mass/Vol]1.0 mg/dLNormal0.6-1.4[facility] hospitaln [facility] SpecialistComment on above:Performed By: #### CMP, CBCAD, VITD, LIPD #### [facility] [address] [place], [place] [id number] mL/min/1.05n3Ymlwzu>60[facility]n [place] [facility] SpecialistComment on above:Performed By: #### CMP, CBCAD, VITD, LIPD #### [facility] [address] [place], [place] [id number] mL/min/1.84y7Inrvfj>60[facility] SpecialistComment on above:Performed By: #### CMP, CBCAD, VITD, LIPD #### [facility] [address] [place], [place] [id number] (S) [Mass/Vol]2.1 g/dLNormal1.9-3.7NoTuscarawas Hospital SpecialistComment on above:Performed By: #### CMP, CBCAD, VITD, LIPD #### [facility] [address] [place], [place] [id number] [Mass/Vol]120 mg/vFLzps34-87Tfyaunak [place] [facility] SpecialistComment on above:Result Comment: For FASTING Glucose --- ADA reference ranges: Normal 65-99 mg/dl Prediabetes 100-125 Diabetes >/= 126Performed By: #### CMP, CBCAD, VITD, LIPD #### [facility] [address] [place], [place] [id number] [Moles/Vol]4.4 mmol/LNormal3.5-5.5NoTuscarawas Hospital SpecialistComment on above:Performed By: #### CMP, CBCAD, VITD, LIPD #### [facility] [address] [place], [place] [id number] [Mass/Vol]7.0 g/dLNormal6.1-8.1Northern [facility] SpecialistComment on above:Performed By: #### CMP, CBCAD, VITD, LIPD #### [facility] [address] [place], [place] [id number] [Moles/Vol]139 mmol/JJuuweu507-971Dcfavfkh [place] [facility] SpecialistComment on above:Performed By: #### CMP, CBCAD, VITD, LIPD #### [facility] [address] [place] [id number] nitrogen [Mass/Vol]13 mg/dLNormal7-25N[facility] SpecialistComment on above:Performed By: #### CMP, CBCAD, VITD, LIPD #### [facility] [address] [place], [place] [id number] A1Con 52-23-6620VDQ906.24NormalNoTuscarawas Hospital SpecialistComment on above:Performed By: #### A1C #### [facility] [address] [place], [place] [id number] (Bld) [Mass fraction]6.2 %High4.0-6.0NoTuscarawas Hospital SpecialistComment on above:Performed By: #### A1C #### [facility] [address] [place], [place] [id number] Panelon 40-68-0537Fxcjwwgiisy [Mass/Vol]243 mg/dLHigh 125-200N[facility] SpecialistComment on above:Result Comment: Low risk < 200mg/dL Borderline risk 201-239 mg/dl High risk > or equal to 240Performed By: #### CMP, CBCAD, VITD, LIPD #### [facility] [address] [place], [place] [id number] in HDL [Mass/Vol]58 mg/dLNormal>40NoTuscarawas Hospital SpecialistComment on above:Result Comment: High Cardiovascular Risk HDL <40 mg/dL Low Cardiovascular Risk HDL > or equal to 60 mg/dlPerformed By: #### CMP, CBCAD, VITD, LIPD #### [facility] [address] [place], [place] [id number] in LDL [Mass/Vol]154 mg/dLNormalNoTuscarawas Hospital SpecialistComment on above:Result Comment: LDL ATP III CLASSIFICATION LDL less than 100 mg/dl Optimal LDL 100-129 mg/dl Near or above optimal LDL 130-159 Borderline high LDL 160-189 High LDL greater than 189 mg/dl Very HighPerformed By: #### CMP, CBCAD, VITD, LIPD #### [facility] [address] [place], [place] [id number] in VLDL [Mass/Vol]31 mg/dLNormalNortMemorial Hospital SpecialistComment on above:Performed By: #### CMP, CBCAD, VITD, LIPD #### [facility] [address] [place], [place] [id number].total/Cholesterol in HDL [Mass ratio]4 {ratio} NormalNoTuscarawas Hospital SpecialistComment on above:Performed By: #### CMP, CBCAD, VITD, LIPD #### [facility] [address] [place], [place] [id number] [Mass/Vol]154 mg/iPEshc05-863Djyanlet [place] [facility] SpecialistComment on above:Result Comment: TRIG ATPIII CLASSIFICATIONS TRIG less than 150 mg/dl Normal TRIG 150-199 mg/dl Borderline High TRIG 200-500 mg/dl High TRIG greather than 500 mg/dl Very HighPerformed By: #### CMP, CBCAD, VITD, LIPD #### [facility] [address] [place], [place] [id number] D 25-OHon 85-50-4949HDB D 25 OH73 ng/mlNormal>29 [facility] SpecialistComment on above:Result Comment: Vitamin D Status Deficiency <20 ng/mL Insufficiency 20-29 ng/mL Optimal 30-100 ng/mL Possible Toxicity >=150 ng/mLPerformed By: #### CMP, CBCAD, VITD, LIPD #### [facility] [address] [place], [place] [id number] 10-47-8834CCVCAxyythrza (ORQ) DHARA DALLAS ([id number]) 1970 F Date Time Provider Department 03/08/21 NAINA OLIVA ORCris During your visit today, we recorded the following information about you: Francisco J Ahuja [facility] 03/08/2021 4:45 PM Signed Patient called requesting a refill for Diclofenac Sod ER 100 mg tab. To send to [facility] at [phone] fax [phone] Francisco J Santana 03/17/2021 1:01 PM Signed Spoke to patient, she stated that got theOral Voltaren Oral Voltaren from her family doctor. 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 Allergies As of Date: 03/08/2021 Noted Allergy Reaction HYDROMORPHONE 03/04/2013 9 - Itching Date Reviewed: 12/22/2020 Reviewed by: Kirsten Vilchis - Fully Assessed Reason for Visit: Medication Question [9938] Prescriptions as of 03/17/2021 - DULoxetine (CYMBALTA) 30 mg capsule Take 90 mg by mouth once daily. - amLODIPine (NORVASC) 5 mg tablet Take 1 tablet by mouth once daily. - OLANZapine (ZYPREXA) 5 mg tablet Take 1 tablet by mouth once daily. - furosemide (LASIX) 20 mg tablet Take 1 tablet by mouth once daily. - L.acid/L.casei/B.bif/B.daitya/FOS (PROBIOTIC BLEND ORAL) Take by mouth. - [...] Of Date: 03/08/2021 (None) Encounter Status:Closed by FRANCISCO J QUINN on 03/17/21[facility] DHARA D[place]AS ([id number]) 1970 F Date Time Provider Department 03/08/21 [...] 1 tablet by mouth once daily. - L.acid/L.casei/B.bif/B.aditya/FOS (PROBIOTIC BLEND ORAL) Take by [...] Of Date: 03/08/2021 (None) Encounter Status:Closed by FRANCISCO J QUINN on 03/08/21[facility] [id number] Visit (ORTHMN) DHARA DALLAS ([id number]) 1970 F Date Time Provider Department 12/22/20 [...] No history of dysuria, frequency or incontinence CARDIAC CATHETERIZATION TECHNOLOGIST: Negative for abnormal vaginal bleeding, abnormal vaginal discharge MUSCULOSKELETAL: Negative for joint pain or swelling, back pain or muscle pain NEUROLOGIC:Negative for focal numbness or weakness, headaches and dizziness or syncope. SKIN:Negative for lesions, rash, and itching PSYCHIATRIC: Negative for sleep disturbance, mood disorder and recent psychosocial stressors. HEMATOLOGIC/LYMPHATIC/IMMUNOLOGIC:Negative for prolonged bleeding, bruising easily or swollen [...] patient has degenerative di (more content not included)...Normal [facility] OUTSIDE CD DICOM IMPORT -NBNRon 48-28-2012QA OUTSIDE CD DICOM IMPORT -NBNRImages were obtained outside of [facility] [id number] Health Greene MemorialXR OUTSIDE CD DICOM IMPORT -NBNRImages were obtained outside of [facility] [id number] [facility] Vital Signs Date TimeVital SignValuePerforming VpwlbmhipVoukrepv89-94-7660 09:27-0400Body fsnool586.1 cmRjoo Youssef MD Work Phone: [phone] BroadbandEllis Fischel Cancer CenterQkinvuujef88-02-2987 09:27-0400Body mass index (BMI) [Ratio]36.11 kg/q9JgkwdSandy Youssef MD Work Phone: [phone] CenterThperzwsxx26-13-5720 09:27-0400Body .43 kgSandy Youssef MD Work Phone: [phone] CenterMohezptnrt85-18-6020 09:27-0400Diastolic blood fqazeeoo69 mm[Hg]Sandy Youssef MD Work Phone: [phone] BroadbandEllis Fischel Cancer CenterUkptbwxnvz90-10-9074 09:27-0400Heart rate90 /min Sandy Youssef MD Work Phone: [phone] Cancer CenterYpckvdbahx02-77-7258 09:27-0876EgV5% (BldA) [Mass fraction]96 %Sandy Youssef MD Work Phone: [phone] Cancer CenterXrtmazvspq41-62-8691 09:27-0400Systolic blood jssimcfr163 mm[Hg]Sandy Youssef MD Work Phone: [phone] State HospitalIarjrarvge55-75-5161 09:28-0500Body bhiplx275.1 cmJanel GOLDMAN Work Phone: [phone] State HospitalOdozekojkh98-93-8335 09:28-0500Body mass index (BMI) [Ratio]34.71 kg/w2TspzsJanel GOLDMAN Work Phone: [facility] CenterYhcuxxovll40-18-4836 09:28-0500Body .62 kgJanel Hemmer PA Work Phone: NOFulton State HospitalBglshrwfyn65-97-4349 09:28-0500Diastolic blood wzuwnnwc86 mm[Hg]Janel Hemmer PA Work Phone: NOFulton State HospitalBqacvblpeh68-53-4978 09:28-0500Heart rate82 /min Janel Hemmer PA Work Phone: NOFulton State HospitalGhmmakchgy90-32-1936 09:28-0500Respiratory rate16 /minJanel Hemmer PA Work Phone: NOFulton State HospitalQydbfgvtjr82-37-1239 09:28-9661TgG6% (BldA) [Mass fraction]95 %Janel Hemmer PA Work Phone: NOFulton State HospitalBzpmigtdey28-29-8888 09:28-0500Systolic blood hnrgkzqa651 mm[Hg]Janel Hemmer PA Work Phone: NOFulton State HospitalOcqrwtxqdk94-96-2123 08:33-0500Body .1 Thu Oconnell TRANSFORMATION SPECIALIST Work Phone: NOFulton State HospitalVrdowlvujz66-83-7315 08:33-0500Body mass index (BMI) [Ratio]33.48 kg/t8KqeekgMadison Oconnell TRANSFORMATION SPECIALIST Work Phone: NOFulton State HospitalIbokufbfwz10-94-8151 08:33-0500Body xclapy47.26 kgMadison Oconnell TRANSFORMATION SPECIALIST Work Phone: NOFulton State HospitalVvmmgpdjff72-46-9478 08:33-0500Diastolic blood nlastjxi33 mm[Hg]Madison Ocnonell TRANSFORMATION SPECIALIST Work Phone: NOFulton State HospitalDuziyejqzv89-63-0178 08:33-0500Heart zrmg549 /min Madison Oconnell TRANSFORMATION SPECIALIST Work Phone: NOFulton State HospitalEykenbimzp51-96-3432 08:33-0500Respiratory rate18 /minSchrissy Oconnell TRANSFORMATION SPECIALIST Work Phone: NOFulton State HospitalXepqlocodr98-07-4113 08:33-1924TuP2% (BldA) [Mass fraction]98 %Madison Oconnell TRANSFORMATION SPECIALIST Work Phone: NOFulton State HospitalQrsqfolakl42-47-7948 08:33-0500Systolic blood xyxfznyl391 mm[Hg]Madison Oconnell TRANSFORMATION SPECIALIST Work Phone: NOFulton State HospitalYkcsasqtxn03-85-6238 08:30-0400Body xykntu194.1 cmKaren Hemmer PA Work Phone: NOFulton State HospitalDljhhpafep05-87-0149 08:30-0400Body mass index (BMI) [Ratio]34.91 kg/r3Osvlz Hemmer PA Work Phone: NOFulton State HospitalMefaoogetw03-48-2618 08:30-0400Body krkukw28.17 kgKaren Hemmer PA Work Phone: NOFulton State HospitalNfdxaypcyl80-58-9784 08:30-0400Diastolic blood mm[Hg]Janel Hemmer PA Work Phone: NOFulton State HospitalRswpstcuai98-25-5190 08:30-0400Heart rate99 /min Janel Hemmer PA Work Phone: NOFulton State HospitalUykiklkqop43-04-2059 08:30-0400Respiratory rate16 /minKaren Hemmer PA Work Phone: NOFulton State HospitalVvqnmvkfyz78-89-1661 08:30-5249BmP3% (BldA) [Mass fraction]93 %Janel Hemmer PA Work Phone: NOFulton State HospitalPpeyibbbuj49-84-5294 08:30-0400Systolic blood cnialbbf681 mm[Hg]Janel Hemmer PA Work Phone: NOFulton State HospitalAgwcdboekg24-91-3745 13:06-0400Body jxzydi300.1 Zoya Youssef MD Work Phone: NOFulton State HospitalPzqpsvnpam96-74-7010 13:06-0400Body mass index (BMI) [Ratio]35.11 kg/o9ObccdSandy Youssef MD Work Phone: NOFulton State HospitalLfstseyfxk20-63-6220 13:06-0400Body obmaen50.71 kgSandy Youssef MD Work Phone: [facility] CenterJbufzglmxz82-89-2434 13:06-0400Diastolic blood swoxagqn94 mm[Hg]Sandy Youssef MD Work Phone: [facility] CenterHwqgfaqyft13-61-4985 13:06-0400Heart rate84 /min Sandy Youssef MD Work Phone: [facility] CenterMfzfszwdow82-93-2858 13:06-9561ZhR2% (BldA) [Mass fraction]93 %Sandy Youssef MD Work Phone: [facility] CenterWhgwmdbozf33-82-8793 13:06-0400Systolic blood mm[Hg]Sandy Youssef MD Work Phone: noFulton State HospitalTmnpvdtipy82-02-1001 09:24-0400Body .1 [facility] 09:24-0400Body mass index (BMI) [Ratio]35.2 kg/n7NuaksmddyBluffton Hospital08-24-2024 09:24-0400Body atxjbxgmtxz31 [degF][facility]08-24-2024 09:24-0400Body zjphyv80.17 kgBluffton Hospital08-24-2024 09:24-0400Diastolic blood fcufnwxq13 mm[Hg][facility]08-24-2024 09:24-0400 Heart rate74 /[facility]08-24-2024 09:24-0400 Respiratory rate18 /[facility]08-24-2024 09:24-0400 SaO2% (BldA) [Mass fraction]94 %[facility]08-24-2024 09:24-0400Systolic blood qyppmykm060 mm[Hg][facility] Encounters Encounter DateEncounter TypeCare ProviderFacilityStart: 05-18-2025 End: 84-50-7140TwyaijTtdzo M Alda MD Work Phone: [facility] MedinceComment on above:Tremors of nervous system; Anxiety; Migraine without aura and without status migrainosus, not intractableStart: 05-11-2025 End: 80-15-5324qxgymqjgxuWjdjljuDylan Lopez MDFacility:PM Viola Start: 04-23-2025 End: 13-00-0098Ytbfmrecf Result EncounterGeneric External Data ProviderNOMS External Department UnsolicitedStart: 04-23-2025 End: 50-35-9732Ioizoahtc Result EncounterGeneric External Data ProviderNOMS External Department UnsolicitedStart: 04-07-2025 End: 57-34-2619Bmgoiz outpatient visit 25 minutesSandy Youssef MD Work Phone: [facility] MedinceComment on above:Spinal stenosis of lumbar region, unspecified whether neurogenic claudication present (Primary Dx); Type 2 diabetes mellitus with diabetic nephropathy, without long-term current use of insulin (HCC); Major depressive disorder, single episode, mild ; Essential hypertensionStart: 04-07-2025 End: 02-48-2778biahmfwxmfKMYFI M ALDANot AvailableStart: 03-15-2025 End: 39-35-1301LqcskyDlcta M Alda MD Work Phone: NOC[facility] MedinceComment on above:Anxiety Start: 11-23-2024 End: 85-85-3793YcuyfyMqzqb M Alda MD Work Phone: [facility] CI FMComment on above:Tremors of nervous system; AnxietyStart: 10-13-2024 End: 76-44-9079xomwshmkpcOTIVX M ALDANot AvailableStart: 09-11-2024 End: 29-98-7797Xhqmar Kayy GOLDMAN Work Phone: [facility] CI FMStart: 09-11-2024 End: 75-29-5387Bzbhit Kayy GOLDMAN Work Phone: [facility] CI FMStart: 09-11-2024 End: 31-05-7613Zyyyygab Result EncounterJanel GOLDMAN Work Phone: [facility] External Department UnsolicitedStart: 09-11-2024 End: 34-15-2586Mxljwp outpatient visit 15 minutesJanel GOLDMAN Work Phone: [facility] CI FMComment on above:Herpes zoster without complication (Primary Dx); Former smoker; Diabetic nephropathy associated with type 2 diabetes mellitus (HCC) (CMS/HCC) Start: 09-11-2024 End: 94-55-0368tacnpkevasLWAOD M HEMMERNot AvailableStart: 08-12-2024 End: 51-68-6280Ibubqd Nadya Oconnell TRANSFORMATION SPECIALIST Work Phone: [phone] CI FMStart: 08-12-2024 End: 82-30-5917Aabaee Nadya Oconnell TRANSFORMATION SPECIALIST Work Phone: [phone] CI FMStart: 08-12-2024 End: 35-04-9705Yjqzml outpatient visit 25 minutesMadison Oconnell TRANSFORMATION SPECIALIST Work Phone: [phone] CI FMComment on above:Pansinusitis, unspecified chronicity (Primary Dx); Type 2 diabetes mellitus with other specified complication (CMS/HCC); Type 2 diabetes mellitus without complications (CMS/HCC); 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); Morbid (severe) obesity due to excess calories (CMS/HCC); Chronic obstructive pulmonary disease, unspecified (CMS/HCC); Other specified chronic obstructive pulmonary disease (CMS/HCC)Start: 08-12-2024 End: 70-95-1548osgxzshutpFINNPDMara Santiago AvailableStart: 08-11-2024 End: 88-80-0265SdrbpjJmsho M Alda MD Work Phone: [facility] CI FMComment on above:AnxietyStart: 07-14-2024 End: 18-93-8896XsgpjgMzuhqi Rikki KIRBY CI FMComment on above:AnxietyStart: 06-18-2024 End: 35-83-8464LrmgquRondu M Alda MD Work Phone: [phone] CI FMComment on above:AnxietyStart: 04-28-2024 End: 62-56-8779Coiyie Kayy Crowder PA Work Phone: [phone] CI FMStart: 04-28-2024 End: 83-66-6169Kcibsb Kayy GOLDMAN Work Phone: [facility] CI FMStart: 04-28-2024 End: 59-06-0736Klcxzvu encounter statusJanel GOLDMAN Work Phone: [facility] Work Phone: Start: 04-28-2024 End: 04-63-4171Aaxdklgu preventive med est patient 40-64yrsKara Hernandez Rashida GOLDMAN Work Phone: [facility] CI FMComment on above:Wellness examination (Primary Dx); Daytime somnolence; Other chronic [...] Hot flashes due to menopause; Hypertriglyceridemia (CMS/HCC); 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; Migraine without aura and without status migrainosus, not intractable (CMS/HCC); Piriformis syndrome of left side; Psoriasis (CMS/HCC); Pure hypercholesterolemia (CMS/HCC); Smoker; Surgical menopause; Need for vaccinationStart: 04-28-2024 End: 12-72-3411keogzglzemYABUFHuyen Montaño AvailableStart: 04-14-2024 End: 83-33-6073Bnocez Jose Ramon Youssef MD Work Phone: noMS CI FMStart: 04-14-2024 End: 66-91-1479Jnaimt flowsheetSandy Youssef MD Work Phone: [facility] CI FMStart: 04-14-2024 End: 09-84-0745Cyemfp outpatient visit 25 minutesSandy Youssef MD Work Phone: [facility] CI FMComment on above:Diabetic nephropathy associated with type 2 diabetes mellitus [...] insulin (CMS/HCC); Anxiety; Gastroesophageal reflux disease without esophagitisStart: 04-14-2024 End: 34-12-8030ryzifeprljVWSOS M ALDANot AvailableStart: 03-22-2024 End: 91-56-5636mgfrarphuxJprzcoicgSumma Health [facility] Work Phone: Start: 03-22-2024 End: 09-95-9640Eepkrky encounter [facility] Work Phone: Start: 30-90-6223cnxshfcrboAE RUGEN ALDAFacility:H1 Start: 12-15-2022 End: 74-23-8515ukdqhoqngtUAZZBRT HALKER .Facility:S9Djsya: 12-08-2022 End: 77-61-2629xpjzhlyqwlCGQXCAWISDWH LAKSHMIPATHJes .Facility:D4Ltvzx: 09-07-2022 End: 06-99-0681trejgjfcwrRW RUGEN ALDAFacility:O8Ooytb: 09-07-2022 End: 39-13-8267qmqzcowaxnJT AMELIA S WATTS .Facility:O0Mkcbk: 06-01-2022 End: 08-17-3131mgzpysvuhnSVMD MCGILL .Facility:M4Ncrag: 05-16-2022 End: 19-50-4717lqgcopmkfqHFQTV PARKERFacility:H1Sndej: 04-06-2022 End: 09-23-3594zgbpakgdbdRLBP MCGILL .Facility:H5Cybxo: 62-31-5833Bhvzhtqke for preprocedural laboratory examinationDR AMELIA Corine WATTS .[facility] Start: 03-07-2022 End: 12-78-9070lvlpbbypknOV AMELIA S WATTS .Facility:Q9Vggea: 03-06-2022 End: 24-17-7833momkmfeaksIP AMELIA S WATTS .Facility:K6Istpc: 03-06-2022 End: 27-39-0857Vvpdcnqhr for preprocedural laboratory examinationDR AMELIA S WATTS .Facility:O3Lffid: 02-28-2022 End: 37-23-2128nrlnqrvhscNN AMELIA S WATTS .Facility:T5Wbstz: 02-24-2022 End: 71-47-2267zcwtittvgyRZ AMELIA S WATTS .Facility:O7Eqqfv: 01-26-2022 End: 31-48-1706afusrknyczYSAR MCGILL .Facility:U3Kmonj: 01-17-2022 End: 83-19-2476vrtcwavhzcCQ RUGEN ALDAFacility:H1 Procedures DateProcedureProcedure DetailPerforming ClinicianStart: 97-99-5662HG LUMBAR SPINE MIN 4VGeneric External Data ProviderStart: 32-31-3399IB SACROILIAC JOINT Generic External Data ProviderStart: 84-86-4552Dvdxewnklk glycosylated g4zMxgopSandy Youssef MD Work Phone: Start: 01-56-5637Eqsbgohfvy test result abnormal Abnormal laboratory test resultSandy Youssef MD Work Phone: Start: 53-27-8231Jocko albumin quantitativeJanel GOLDMAN Work Phone: Start: 15-63-2238ZyurxgfozhlSmleh Hemmer PA Work Phone: Start: 88-64-7841Cgufocsita glycosylated c7iAmqhqSandy Youssef MD Work Phone: Start: 12-26-2022 End: 98-59-3366Rbilcnf of total hysterectomyH/O total hysterectomySandy Youssef MD Work Phone: Start: 95-15-9218UjkvvkutndpQcwvc Alda MD Work Phone: Start: 06-56-0042ThpiwkvlknuBlvzn Alda MD Work Phone: Start: 11-11-2015H/O: hysterectomyHistory of hysterectomySandy Youssef MD Work Phone: H/O: hysterectomyHistory of hysterectomyJanel GOLDMAN Work Phone: Plan of Treatment DateCare ActivityDetailAuthorStart: 38-60-1312Qckovfuxr for malignant neoplasm of colonNOMS HealthcareStart: 98-47-5584Uyyyn screening for proteinDiabetes: Urine Protein ScreeningNOMS HealthcareStart: 07-13-2025 End: 39-43-7065Ozpnoaz encounter aykqusuft51/15/2025 8:15 AM EST Office Visit [facility] [place] Castillow[facility] [address] [facility] [address] [place] [address] Sandy Youssef MD [address] [facility] [address] [place] [address] [facility] [place] [facility] HospitalnceStart: 07-07-2025 Hemoglobin A1c measurementDiabetes: Hemoglobin A9DUJHB HealthcareStart: 21-60-6252Uruae screening for proteinDiabetes: Urine Protein ScreeningNOMS HealthcareStart: 04-20-2025 End: 92-07-0739Rvkdtvc encounter procedureNOMS CI FMStart: 43-21-1101Nndmleiks for malignant neoplasm of breastMammogramNOMS HealthcareStart: 03-30-2025 Influenza vaccinationNOMS HealthcareStart: 61-14-9748Zkciccochb A1c measurement Diabetes: Hemoglobin M0YMPPI HealthcareStart: 10-13-2024 End: 32-90-6185Teeskoh encounter romanlddu69/17/2025 9:00 AM EDT Office Visit [facility] [address] [place] [address] [place] [address] Sandy Youssef MD [address] [place] [address] [place] [address] [facility] CI FMStart: 09-11-2024 End: 67-39-8000Xgeybqzjiaak/Creatinine panel in random UrineMicroalbumin / creatinine urine ratio Lab Routine Diabetic nephropathy associated with type 2 diabetes mellitus (HCC) (CMS/HCC) Expected: 09/11/2024 (Approximate), Expires: 09/11/2025[facility] Work Phone: Comment on above:Expected: 09/11/2024 (Approximate), Expires: 09/11/2025Start: 09-11-2024 End: 94-90-4607Molmxnj encounter gljivrlrh03/13/2025 9:30 AM EST Office Visit [facility] [address] [facility] [address] [place] [address] Janel Crowder PA [address] [facility] [address] [place] [address] ArrivedNOMS CI FMComment on above:ArrivedStart: 08-12-2024 End: 70-99-9073Lghsxpw encounter procedureNOMS CI FMComment on above:Arrived Start: 98-86-5688Cvpggxlxhz A1c measurementDiabetes: Hemoglobin V6IHFQP HealthcareStart: 04-28-2024 End: 16-65-7207Cvtqsnt encounter razycuifg66/30/2024 8:30 AM EDT Office Visit [facility] [address] [facility] [address] [place] [address] Janel Crowder PA [address] [facility] [address] [place] [address] ArrivedNOMS CI FMComment on above:ArrivedStart: 04-14-2024 End: 54-58-5483QXG panel - Blood by Automated countCBC Lab Routine Essential hypertension ([facility]) Type 2 diabetes mellitus with other specified compl ication, without long-term current use of insulin (CMS/HCC) Diabetic nephropathy associated with type 2 diabetes mellitus (HCC) (CMS/HCC) Pure hypercholesterolemia (CMS/HCC) Expected: 04/14/2024 (Approximate), Expires: 04/14/2025NOPA HealthcareComment on above:Expected: 04/14/2024 (Approximate), Expires: 04/14/2025Start: 04-14-2024 End: 36-87-2373Egffzvbsobqoa metabolic 2000 panel - Serum or PlasmaComprehensive metabolic panel Lab Routine Essential hypertension (CMS/HCC) Type 2 diabetes mellituswith other specified complication, without long-term current use of insulin (CMS/HCC) Diabetic nephropathy associated with type 2 diabetes mellitus (HCC) (CMS/HCC) Pure hypercholesterolemia (CMS/HCC)Expected: 04/14/2024 (Approximate), Expires: 04/14/2025NOPA HealthcareComment on above:Expected: 04/14/2024 (Approximate), Expires: 04/14/2025Start: 04-14-2024 End: 57-24-5659Qllnf 1996 panel - Serum or PlasmaLipid panel Lab Routine Essential hypertension (CMS/HCC) Type 2 diabetes mellitus with other specified complication, without long-term current use of insulin (CMS/HCC) Diabetic nephropathy associatedwith type 2 diabetes mellitus (HCC) (CMS/HCC) Pure hypercholesterolemia (CMS/HCC) Expected: 04/14/2024 (Approximate), Expires: 04/14/2025NOPA HealthcareComment on above:Expected: 04/14/2024 (Approximate), Expires: 04/14/2025Start: 04-14-2024 End: 69-94-4115HC Breast - bilateral ScreeningBilateral screening mammogram Imaging Routine Encounter for screening mammogram for malignant neoplasm of breast Expected: 04/14/2024, Expires: 06/14/2025[facility] Work Phone: Comment on above:Expected: 04/14/2024, Expires: 06/14/2025Start: 04-14-2024 End: 94-17-5930Wfxvujc encounter cqmuiksmq34/16/2024 1:00 PM EDT Office Visit [facility] [address] [facility] [address] [place] [address] Sandy Youssef MD [address] [facility] [address] [place] [address] [facility] FMComment on above:ArrivedStart: 04-09-2024 Urine screening for proteinDiabetes: Urine Protein ScreeningEll[facility] Start: 92-26-4502Tqajrzqfx vaccinationInfluenza Vaccine (#1)[facility] Start: 08-34-6058Cbmzgiitok A1c measurementDiabetes: Hemoglobin G5EODZR HealthcareStart: 37-49-3114Nhytknbcg for malignant neoplasm of breastMammogram [facility] HealthcareStart: 13-92-9808Gpxwhyed screeningDiabetes: Retinopathy ScreeningPARK CITY HOSPITAL HealthcareStart: 93-42-9543Ghcwwatst for malignant neoplasm of colonPARK CITY HOSPITAL Healthcare Immunizations Immunization DateImmunizationNotesCare TykdbxcjDufofykb72-56-8324owtprn vaccine- recombinant adjuvanted (Shingrix) 50 MCG/0.5ML vaccineJanel GOLDMAN Work Phone: [facility] CenterXuqpmfdwvh64-95-4934vwvhedvzpqny conjugate 20- valent (Prevnar 20) 0.5 ML vaccineJanel GOLDMAN Work Phone: [facility] CenterYmrlsrzbol14-99-8950khxkxmhng, injectable, quadrivalent, preservative freeSandy Youssef MD Work Phone: [facility] CenterKmoqxfeple71-45-9269Mvwkvbx Bivalent Booster VaccinationSandy Youssef MD Work Phone: [facility] CenterWbgojscwxe41-61-7782ABQP-SIC-0 (COVID-19) vaccine, mRNA, spike protein, LNP, bivalent, preservative free, 30 mcg/0.3 mL dose, maria esther-sucrose formulationSandy Youssef MD Work Phone: [facility] CenterCvpbpunwho74-17-3583pedirwryi virus vaccine, unspecified formulationSandy Youssef MD Work Phone: [facility] CenterNzozcyfffz83-62-9519Jyvtaxjzx, injectable, Madin [place] Canine Kidney, preservative free, quadrivalentSandy Youssef MD Work Phone: [facility] Payers DatePayer CategoryPayerPolicy [id number] Health InsuranceHEALTHSCOPE Member Subscriber Plan / Payer (Effective 2022-Present) Name: Dhara Dallas AMember ID: [id number] Relation to Subscriber: Self Name: Dhara Dallas Payer ID: Not on file Type: Not on file Address: [address] [id number] 1.2.840.404024.1.13.693.2.7.3.981[id number] 2.840.1.446791.3.57[id number] 2.16840.1.679823.3.57[id number] 2.16.840.1.341173.3.579.[id number] 2.16.840.1.973754.3.57[id number] 2.16.840.1.268614.3.579.[id number] 2.16.840.1.719400.3.57[id number] 2.16.840.1.798402.3.57[id number] 2.16.840.1.245014.3.57[id number] 2.16840.1.473138.3.57[id number] 2.16.840.1.259288.3.57[id number] 2.16.840.1.946257.3.579.[id number] 2.16.840.1.719652.3.579.[id number] 2.16.840.1.221741.3.57[id number] 2.16.840.1.299102.3.57[id number] 2.16.840.1.635843.3.57[id number] 2..840.1.938454.3.579.2.[id number] 2.16.840.1.848614.3.57[id number] 2..840.1.091874.3.579.2.458248-59-0565Ibdpzyg4043450 2..840.1.402708.3.57[id number] 2.0.1.889664.3.579.[id number] 2.840.1.577796.3.579.2.73440-69-4600Shmqrdm955[id number] Social History DateTypeDetailFacilityStart: 27-43-1773Uyiudtj smoking status NHISSmoker (finding)[facility]: 62-22-7973[facility]: 01-01-2023 End: 56-15-6158Bnrglzx smoking status NHISSmokes tobacco dailyNOPA Healthcare Work Phone: Start: 56-25-6507Lnkzurp of tobacco useCigarette SmokerNOMS HealthcareStart: 04-28-2024 End: 47-70-8928Zmvmpxx use and exposureSmokeless tobacco non-userNOPA Healthcare Start: 04-28-2024 End: 34-96-4221Mkyyspiis beverage intakeCurrent drinker of alcohol (finding)[facility] HealthcareStart: 10-22-2023 End: 60-48-9227Gvqnose of Social functionNOMS HealthcareStart: 10-22-2023 End: 45-52-1396Dzeyjl connection and isolation panelNOPA HealthcareStart: 20-72-5196Io a typical week, how many times do you talk on the telephone with family, friends, or neighbors?Patient declinedNOPA HealthcareAre you now , , , , never or living with a partner? MarriedPAR[facility] CITY [facility]OSPITAL HealthcareIn the past 12 months, was there a time when you were not able to pay the mortgage or rent on time?NoNOMS HealthcareStart: 05-12-2023 Alcohol Comment1-2 drinks monthly or less, caffeine yes coffee,sodaNOMS HealthcareStart: 60-05-3272Esh assigned at birthNot on fileNOPA HealthcareStart: 80-39-2373Jeuyscx smoking status NHISEx-smokerNOPA Healthcare Goals DatePatient GoalDesired Activity/StatePersonal health goal Functional Status ThheIpyqxiscayTtrgkdEfxxzsvu76-37-4249Xhjkzqw Health Questionnaire 2 item (PHQ- 2) [Reported][facility] Clinical Notes 12-22-2020 to 04-07-2025 Note Date & BtdoTbifSfdqqrvj11-35-4145 History of Present illness Narrative* Sandy Youssef MD - 04/07/2025 9:49 AM EDTAssociated Problem(s): Major depressive disorder, single episode, mild This is a chronic medical condition that is stable since last assessment. No changes in treatment are suggested at this time. Continue Current meds. * Sandy Youssef MD - 04/07/2025 9:48 AM EDTAssociated Problem(s): Type 2 diabetes mellitus (HCC) No [...] and importance of healthy diet and exercise. * Sandy Youssef MD - 04/07/2025 9:48 AM EDTAssociated Problem(s): Essential hypertension Our specific goals, for [...] taking them as prescribed. DASH diet handouts * Sandy Youssef MD - 04/07/2025 9:30 AM EDT Images from the original note were not included. HPI Diabetes Additional comments: Last . Last edited by Elysia Escobar MA on 04/07/2025 7:17 AM. Subjective Patient ID: Dhara Dallas is a 54 y.o. female who presents for Diabetes (Last .). Pt stated that she has been getting [...] months of each other Pt states the niteshic is not working for her anymore not losing weight right now Pt is still having migraines ,nurtec does help but not every time if it does not help she will justgo to sleep Diabetes She presents for her follow-up diabetic visit. She has type 2 diabetes mellitus. No MedicAlert identification noted. The initial diagnosis of diabetes was made 2 years ago. Her disease course has been stable. Hypoglycemia symptoms include headaches. Pertinent negatives for diabetes include no chestpain, no polydipsia, no polyphagia and no weakness. There are no hypoglycemic complications. Symptom s are stable. Pertinent negatives for diabetic complications include no CVA, heart disease, peripheral neuropathy or PVD. There are no known risk factors for coronary artery disease. Current diabetictreatment includes oral agent (dual therapy). She is compliant with treatment all of the time. She is following a diabetic diet. She has not had a previous visit with a dietitian. She rarely participates in exercise. There is no change in her home blood glucose trend. An JESÚS inhibitor/angiotensin II receptor enedina is not being taken. She does not see a plastic welding machine operator. Over the past 2 weeks, how often [...] by mouth in the morning and 1 capsule(300 mg) in the evening and 1 capsule (300 mg) before bedtime. Do all this for 10 days. 30 capsule 0 ipratropium-albuterol (Duo-Neb) 0.5-2.5 mg/3 mL nebulizer solution loratadine (Claritin) 10 MG tablet 1 (one) time each day at the same time. metFORMIN (Glucophage) 500 MG tablet TAKE 1 TABLET BY MOUTH DAILY WITH A MEAL 100 tablet 3 montelukast (Singulair) 10 MG tablet wntvbaspevbu-xnfy-xtnrdzum-folic acid (Centrum Silver, geriatric,) tablet as directed Orally nystatin (Mycostatin) 003340 UNIT/ML suspension OLANZapine (ZyPREXA) 10 MG tablet [...] 1 TABLET BY MOUTH EVERY OTHER DAY FORPREVENTATIVE 15 tablet 2 traMADol (Ultram) 50 MG tablet TAKE ONE TABLET BY MOUTH FOUR TIMES A DAY NEEDED 120 tablet 0 zinc gluconate 50 MG tablet Take 50 mg by mouth Daily [DISCONTINUED] amLODIPine (Norvasc) 10 MG tablet TAKE 1 TABLET BY MOUTH DAILY 100 tablet 3 [DISCONTINUED] Ozempic, 1 MG/DOSE, 4 MG/3ML solution pen-injector [DISCONTINUED] semaglutide (Ozempic, 1 MG/DOSE,) 2 MG/1.5ML solution pen- injector Inject 1 mg underthe skin 1 (one) time per week 3 [...] Recheck, Anxiety Meds F/U. documented in this encounterNOMS Awjhjgigwc93-75-4860 History of Present illness Narrative* Janel Crowder, SUSI - 09/11/2024 9:30 AM EST Images from the original note were not included. Subjective Patient ID: Dhara Dallas is a 54 y.o. female who presents for rash. Dhara is present today for evaluation of rash. Admits day before yesterday she noticed a rash on the under side of her left arm with some redness, burning. It has now spread to axillary area of herleft side and on the upper left side of back. She has not been using anything on her rash. Quit smoking 4 months ago and is doing well. States her taste and smell have improved. States is nolonger coughing like she was while she was [...] tablet 3 montelukast (Singulair) 10 MG tablet avenkbqzsdps-cxqs-nczdvgdi-folic acid (Centrum Silver, geriatric,) tablet as directed Orally nystatin (Mycostatin) 019709 UNIT/ML suspension OLANZapine (ZyPREXA) 10 MG tablet [...] Respiratory failure with hypoxia (CMS/HCC) 01/11/2023 Sepsis (CMS/[facility]) 01/11/2023 Past Surgical History: Procedure Laterality Date APPENDECTOMY 1986 SECTION, LOW TRANSVERSE 1994 CHOLECYSTECTOMY 2007 COLONOSCOPY [...] tolerated it well and felt it was h elpful. Follow up as needed. Former smoker Congratulated patient on smoking cessation. The patient was counseled on the importance of maintaining cigarette smoking abstinence. The patient continues to refrain from smoking and is committed to avoiding tobacco use. Diabetic nephropathy associated with type 2 diabetes mellitus (HCC) ([facility]/HCC) - Microalbumin / creatinine urine ratio; Future Urine sample obtained today for Microalbumin testing. Follow up for Appointment As Scheduled. documented in this encounterEllis Fischel Cancer [id number] History of Present illness Narrative* Madison Oconnell NP - 08/12/2024 8:30 AM EST Images from the original note were not included. Subjective Patient ID: Dhara Dallas is a 54 y.o. female who presents for sinus issues. Neil presents today for sinus congestion with a cough, ear pain and headache. She was put on a zpack on 08/05/24. She was feeling better but [...] CAPSULE BY MOUTH DAILY 100 capsule 1 Yqkouxqvzty-Yeggpgysp-Bkuhct (Trelegy Ellipta) 100-62.5-25 MCG/ACT aerosol powder Inhale [...] tablet 1 montelukast (Singulair) 10 MG tablet ehtbpvszdxlh-kbkg-jxrtmmka-folic acid (Centrum Silver, geriatric,) tablet as directed Orally nystatin (Mycostatin) 784170 UNIT/ML suspension OLANZapine (ZyPREXA) 10 MG tablet [...] APPENDECTOMY 1985 SECTION, LOW TRANSVERSE 1993 CHOLECYSTECTOMY [address] Fletcher HEMORRHOIDECTOMY [...] No motrin while on steroid as this canincrease the risk of GI bleed. Type 2 diabetes mellitus with other specified complication (CMS/[facility]) We discussed today, the importance of proper [...] control with the patient. If the patient stillhas questions on this, a referral to a Dietitian can be arranged. I reviewed medications that aid in diabetic control. We discussed proper dosing and educated the patient on possible side effects andcomplications. The patient verbalized understanding of these instructions. Type 2 diabetes mellitus without complications ([facility]) We discussed today, the importance of proper [...] control with the patient. If the patient stillhas questions on this, a referral to a Dietitian can be arranged. I reviewed medications that aid in diabetic control. We discussed proper dosing and educated the patient on possible side effects andcomplications. The patient verbalized understanding of these instructions. Type 2 diabetes mellitus with diabetic nephropathy ([facility]) We discussed today, the importance of proper [...] control with the patient. If the patient stillhas questions on this, a referral to a Dietitian can be arranged. I reviewed medications that aid in diabetic control. We discussed proper dosing and educated the patient on possible side effects andcomplications. The patient verbalized understanding of these instructions. Morbid (severe) obesity due to excess calories (CMS/HCC) Discussed goal of BMI < 30. Advised on weight loss options. Encouraged diet and exercise. Discussed with patient appropriate lifestyle modification changes necessary for weight management, heart healthy eating and overall health promotion. Discussed minimizing high carb, high sugar, high sodium,portion control, and processed foods while making healthy [...] No follow-ups on file. documented [facility] this [facility]11-20-20[facility] Telephone encounter Note* Telephone Encounter - SUSI Martin - 06/18/2024 10:03 AM EST OARRS reviewed, Rx sent into patient's pharmacy. [facility] [id number] Miscellaneous Notes* Telephone Encounter - SUSI Martin - 06/18/2024 10:03 AM EST OARRS reviewed, Rx sent into patient's pharmacy. documented in this [facility]09-30-2024 History of Present illness Narrative* SUSI Martin - 04/28/2024 8:30 AM EDT Images from the original note were not [...] CAPSULE BY MOUTH DAILY 100 capsule 1 Wwowyhxcgql-Kntynsbxn-Zbrggz (Trelegy Ellipta) 100-62.5-25 MCG/ACT aerosol powder Inhale [...] tablet 1 montelukast (Singulair) 10 MG tablet jnqhhvrzsplw-jgfr-mttbskqm-folic acid (Centrum Silver, geriatric,) tablet as directed Orally nystatin (Mycostatin) 147962 UNIT/ML suspension OLANZapine (ZyPREXA) 10 MG tablet [...] TABLET BY MOUTH THREE TIMES A DAY 90tablet 1 [DISCONTINUED] gabapentin (Neurontin) 300 MG capsule [DISCONTINUED] ofloxacin (Ocuflox) 0.3 % ophthalmic solution Four times daily [DISCONTINUED] semaglutide (Ozempic, 1 MG/DOSE,) 2 MG/1.5ML solution pen- injector Inject 1 mg underthe skin 1 (one) time per week 2 [...] right-middle field reveals wheezing. Wheezing present. No rhonchior rales. Abdominal: General: Bowel sounds are normal. [...] controlled. Continue with current medications and I willcontinue to monitor. Goal BP remains less than [...] time. Stage 3a chronic kidney disease (HCC) (CMS/HCC) This is a chronic medical condition [...] associated with type 2 diabetes mellitus (HCC) ([facility]) Will continue to monitor with routine HgbA1c. Morbid (severe) obesity due to excess calories ([facility]) Encouraged portion control, decrease simple sugars and carbohydrates, gradually increase activity level. Aim for continued gradual steady weight loss. Type 2 diabetes mellitus with other specified complication, without long-term current use of insulin ([facility]) Will continue to monitor with routine HgbA1c. Type 2 diabetes mellitus without complication, without long-term current use of insulin ([facility]) - semaglutide (Ozempic, 1 MG/DOSE,) 2 MG/1.5ML solution pen-injector; Inject 1 mg under the skin 1 (one) time per week Will continue to monitor with routine HgbA1c. Adjustment disorder with anxiety ([facility]) This is a chronic medical condition that is stable since last assessment. No changes in treatment are suggested at this time. Seasonal allergic rhinitis due to pollen This is a chronic medical condition that is stable since last assessment. No changes in treatment are suggested at this time. Depressive disorder ([facility]) This is a chronic medical condition that [...] treatment are suggested at this time. Hypertriglyceridemia ([facility]) This is a chronic medical condition that is stable since last assessment. No changes in treatment are suggested at this time. Will continue to monitor with routine labs. long-term (current) use of inhaled steroids This is a chronic medical condition that is stable since last assessment. No changes in treatment are suggested at this time. Migraine without aura and without status migrainosus, not intractable ([facility]) This is a chronic medical condition that is stable since last assessment. No changes in treatment are suggested at this time. Piriformis syndrome of left side This is a chronic medical condition that is stable since last assessment. No changes in treatment are suggested at this time. Psoriasis ([facility]) This is a chronic medical condition that [...] for Appointment As Scheduled. documented in this encounterEllis Fischel Cancer [id number] History of Present illness Narrative* Sandy Youssef MD - 04/14/2024 1:17 PM EDTAssociated Problem(s): Depressive disorder (CMS/HCC) This is a chronic medical condition that is stable since last assessment. No changes in treatment are suggested at this time. Continue Current meds. * Sandy Youssef MD - 04/14/2024 1:17 PM EDTAssociated Problem(s): Morbid (severe) obesity due to excess calories (CMS/HCC) Weight loss encouraged * Sandy Youssef MD - 04/14/2024 1:17 PM EDTAssociated Problem(s): Body mass index (BMI) 37.0-37.9, adult Diet and Exercise encouraged * Sandy Youssef MD - 04/14/2024 1:14 PM EDTAssociated Problem(s): Pure hypercholesterolemia (CMS/HCC) This is a chronic medical condition that is stable since last assessment. No changes in treatment are suggested at this time. Continue Current meds. * Sandy Youssef MD - 04/14/2024 1:14 PM EDTAssociated Problem(s): Diabetic nephropathy associated with type 2 [...] and importance of healthy diet and exercise. * Sandy Youssef MD - 04/14/2024 1:13 PM EDTAssociated Problem(s): Essential hypertension (CMS/HCC) Our specific goals, [...] taking them as prescribed. DASH diet handouts * Sandy Youssef MD - 04/14/2024 1:00 PM EDT Images from the original note were not [...] headaches. Pertinent negatives for diabetes include no chestpain, no polydipsia, no polyphagia and no weakness. There are no hypoglycemic complications. Symptom s are stable. Pertinent negatives for diabetic complications include no CVA, heart disease, peripheral neuropathy or PVD. There are no known risk factors for coronary artery disease. Current diabetictreatment includes oral agent (dual therapy). She is compliant with treatment all of the time. She is following a diabetic diet. She has not had a previous visit with a dietitian. She rarely participates in exercise. There is no change in her home blood glucose trend. An JESÚS inhibitor/angiotensin II receptor enedina is not being taken. She does not see a plastic welding machine operator. Current Outpatient Medications on File Prior to [...] CAPSULE BY MOUTH DAILY 100 capsule 1 Iiinkwikrwy-Xgggfbbvn-Ioffbv (Trelegy Ellipta) 100-62.5-25 MCG/ACT aerosol powder Inhale 1 puff in the morning. 1 each 11 gabapentin (Neurontin) 300 MG capsule loratadine (Claritin) 10 MG tablet 1 (one) time each day at the same time. metFORMIN (Glucophage) 500 MG tablet TAKE ONE TABLET BY MOUTH DAILY WITH A MEAL 100 tablet 1 zhszdridvcbu-ljnd-eefhmrxf-folic acid (Centrum Silver, geriatric,) tablet as directed Orally nystatin (Mycostatin) 164690 UNIT/ML suspension OLANZapine (ZyPREXA) 10 MG tablet [...] semaglutide (Ozempic, 1 MG/DOSE,) 2 MG/1.5ML solution pen- injector Inject 1 mg underthe skin 1 (one) time per week 2 [...] SECTION, LOW TRANSVERSE 1994 CHOLECYSTECTOMY [address] Fletcher HEMORRHOIDECTOMY [...] Morbid (severe) obesity due to excess calories ([facility]) Weight loss encouraged Pure hypercholesterolemia ([facility]) This is a chronic medical condition that is stable since last assessment. No changes in treatment are suggested at this time. Continue Current meds. Relevant Orders CBC Lipid panel Comprehensive metabolic panel Type 2 diabetes mellitus ([facility]) Relevant Medications semaglutide (Ozempic, 1 MG/DOSE,) 2 MG/1.5ML solution pen-injector Other Relevant Orders POCT Glycated hemoglobin, total (Completed) CBC Lipid panel Comprehensive metabolic panel Diabetic nephropathy associated with type 2 diabetes mellitus (HCC) ([facility]) - Primary No Tobacco use Follow ADA [...] pulmonary disease, unspecified (CMS/HCC) Atherosclerosis of aorta ([facility]) Anxiety Relevant Medications ALPRAZolam (Xanax) 0.5 MG tablet Gastroesophageal reflux disease without esophagitis Relevant Medications omeprazole (PriLOSEC) [address] capsule Follow up in about 6 months (around 10/12/2024) for Diabetes. documented in this encounterEllis Fischel Cancer [id number] NotePROCEDURE: XR SACRUM_COCCYX COMPARISON: None. HISTORY: Lumbar spondylosis ; chronic [...] Electronically authenticated by: BRANDON CRUZ Date: 2022-12-15 08:23[facility]02-09-2023 NoteCONSULTATION CONSULTATION DATE: 09/07/2022 HISTORY OF PRESENT ILLNESS: [...] unless otherwise indicated. Patient agrees with this plan.[facility] 09-07-2022 NoteCONSULTATION PROCEDURE DATE: 09/07/2022 PREOPERATIVE DIAGNOSIS: Bilateral lumbar [...] be followed up in the office. [facility] [id number] NoteCONSULTATION CONSULTATION DATE: 06/01/2022 HISTORY OF PRESENT ILLNESS: [...] clinic in three months' time unless otherwise indicated.[facility] [id number] Note CONSULTATION PROCEDURE DATE: 06/01/2022 PREOPERATIVE DIAGNOSIS: [...] and will be followed up in the office.[facility] [id number] NoteCONSULTATION PROCEDURE DATE: 04/06/2022 PRE AND POSTOPERATIVE DIAGNOSIS: [...] She will be followed up in the clinic.[facility] 04-06-2022 NoteCONSULTATION CONSULTATION DATE: 04/06/2022 HISTORY OF PRESENT ILLNESS: [...] Patient is to continue with her multivitamin regimen.[facility] [id number] NoteCONSULTATION CONSULTATION DATE: 01/26/2022 This is a pleasant [...] be followed up in the office post-procedure. [facility] Signed and Approved by: GRANT MCGILL . 02/02/2022 16:26:00[facility]05-26-2021 NoteHNO ID: [id number] Author: Naina Oliva MD Service: ? Author [...] No history of dysuria, frequency or incontinence CARDIAC CATHETERIZATION TECHNOLOGIST: Negative for abnormal vaginal bleeding, abnormal vaginal discharge MUSCULOSKELETAL: Negative for joint pain or swelling, back pain or muscle pain NEUROLOGIC:Negative for focal numbness or weakness, headaches and dizziness or syncope. SKIN:Negative for lesions, rash, and itching PSYCHIATRIC: Negative for sleep disturbance, mood disorder and recent psychosocial stressors. HEMATOLOGIC/LYMPHATIC/IMMUNOLOGIC:Negative for prolonged bleeding, bruising easily or swollen [...] inequality. It is unl (more content not included)...[facility]Evaluation noteNo assessment information availableCherrington Hospital Work Phone: Evaluation note* Diagnosis Morbid obesity (CMS/HCC)- Primary Morbid [...] aorta (CMS/HCC) Atherosclerosis of aorta Pure hypercholesterolemia ([facility]/HCC) Pure hypercholesterolemia Migraine without aura and without status migrainosus, not intractable ([facility]/HCC) Depressive disorder ([facility]/HCC) Depressive disorder, not elsewhere classified Type 2 diabetes mellitus without complication, without long-term current use of insulin ([facility]) Anxiety Anxiety state, unspecified Gastroesophageal reflux disease without esophagitis Esophageal reflux Anxiety Anxiety state, unspecified documented in this encounter [facility]* Diagnosis Diabetic nephropathy associated with type 2 diabetes mellitus (HCC) ([facility])- Primary Essential hypertension ([facility]) Unspecified essential hypertension Encounter for screening mammogram for malignant neoplasm of breast Type 2 diabetes mellitus with other specified complication, without long-term current use of insulin ([facility]) Morbid (severe) obesity due to excess calories ([facility]) Body mass index (BMI) 37.0-37.9, adult Chronic obstructive pulmonary disease, unspecified ([facility]) Atherosclerosis of aorta ([facility] Atherosclerosis of aorta Pure hypercholesterolemia ([facility]) Pure hypercholesterolemia Migraine without aura and without status migrainosus, not intractable ([facility] Depressive disorder ([facility]) Depressive disorder, not elsewhere classified Type 2 diabetes mellitus without complication, without long-term current use of insulin ([facility]) Anxiety Anxiety state, unspecified Gastroesophageal reflux disease without esophagitis Esophageal reflux documented in this encounter [facility]* Diagnosis Morbid obesity ([facility])- Primary Morbid obesity Type 2 diabetes mellitus without complication, without long-term current use of insulin ([facility]) Essential hypertension ([facility]) Unspecified essential hypertension Smoker Tobacco use disorder Dizziness Dizziness and giddiness Migraine without aura and without status migrainosus, not intractable ([facility]/HCC) Acute exacerbation of chronic obstructive pulmonary disease ([facility]) Obstructive chronic bronchitis with exacerbation Nicotine dependence, cigarettes, with unspecified nicotine-induced disorders- Primary Type 2 diabetes mellitus without complication, without long-term current use of insulin ([facility]) Adjustment disorder with anxiety ([facility]) Adjustment disorder with anxiety Migraine without aura and without status migrainosus, not intractable ([facility]) Type 2 diabetes mellitus with other specified complication, without long-term current use of insulin (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 Migraine without aura and without status migrainosus, not intractable (CMS/HCC) Piriformis syndrome of left side Psoriasis (CMS/HCC) Other psoriasis Pure hypercholesterolemia (CMS/HCC) Pure hypercholesterolemia Smoker Tobacco use disorder Surgical menopause Need for vaccination Need for prophylactic vaccination and inoculation against unspecified single disease documented in this encounter [facility]* Diagnosis Morbid obesity (CMS/HCC)- Primary [...] pulmonary disease (CMS/HCC) documented in this encounter [facility] HealthcareEvaluation note* Diagnosis Morbid obesity (CMS/HCC)- [...] mellitus (HCC) (CMS/HCC) documented in this encounter [facility]Evaluation note* Diagnosis Morbid obesity (CMS/HCC)- [...] diabetes mellitus (HCC) (CMS/HCC)- Primary Essential hypertension ([facility]/HCC) Unspecified essential hypertension Encounter for screening mammogram for malignant neoplasm of breast Type 2 diabetes mellitus with other specified complication, without long-term current use of insulin Morbid (severe) obesity due to excess calories ([facility]) Body mass index (BMI) 37.0-37.9, adult Chronic obstructive pulmonary disease, unspecified Atherosclerosis of aorta (CMS/HCC) Atherosclerosis of aorta Pure hypercholesterolemia (CMS/HCC) Pure hypercholesterolemia Migraine without aura and without status migrainosus, not intractable (CMS/HCC) Depressive disorder ([facility]/HCC) Depressive disorder, not elsewhere classified Anxiety Anxiety state, unspecified Gastroesophageal reflux disease without esophagitis Esophageal reflux Essential hypertension ([facility]/HCC)- Primary Unspecified essential hypertension Type 2 diabetes mellitus with diabetic nephropathy, without long-term current use of insulin (CMS/HCC) Diabetic nephropathy associated with type 2 diabetes mellitus (HCC) ([facility]) Tremors of nervous system Anxiety Anxiety state, unspecified documented in this encounter [facility]* Diagnosis Morbid obesity ([facility]-HCC)- Primary Morbid obesity Type 2 diabetes mellitus [...] Pure hyperglyceridemia Stage 3a chronic kidney disease ([facility]-HCC) Diabetic nephropathy associated with type 2 diabetes mellitus (HCC)- Primary Essential hypertension Unspecified essential hypertension Encounter for screening mammogram for malignant neoplasm of breast Type 2 diabetes mellitus with other specified complication, without long-term current use of insulin (HCC) Morbid (severe) obesity due to excess calories ([facility]) Body mass index (BMI) 37.0-37.9, adult Chronic [...] encounter [facility]* Diagnosis Morbid obesity ([facility]-HCC)- Primary Morbid obesity Type 2 diabetes mellitus [...] Pure hyperglyceridemia Stage 3a chronic kidney disease ([facility]-HCC) Diabetic nephropathy associated with type 2 diabetes mellitus (HCC)- Primary Essential hypertension Unspecified essential hypertension Encounter for screening mammogram for malignant neoplasm of breast Type 2 diabetes mellitus with other specified complication, without long-term current use of insulin (HCC) Morbid (severe) obesity due to excess calories ([facility]) Body mass index (BMI) 37.0-37.9, adult Chronic [...] Unspecified essential hypertension documented in this encounter [facility]* Diagnosis Morbid obesity ([facility])- Primary Morbid obesity Type 2 diabetes mellitus without complication, without long-term current use of insulin (HCC) Essential hypertension Unspecified essential hypertension Smoker Tobacco use disorder Dizziness Dizziness and giddiness Migraine without aura and without status migrainosus, not intractable Acute exacerbation of chronic obstructive pulmonary disease ([facility]) Obstructive chronic bronchitis with exacerbation Nicotine dependence, cigarettes, with unspecified nicotine-induced disorders- Primary Type 2 diabetes mellitus with other specified complication, without long-term current use of insulin ([facility]) Adjustment disorder with anxiety Migraine without aura and without status migrainosus, not intractable Pure hyperglyceridemia (E78.1) Pure hyperglyceridemia Stage 3a chronic kidney disease ([facility]) Diabetic nephropathy associated with type 2 diabetes mellitus (HCC)- Primary Essential hypertension Unspecified essential hypertension Encounter for screening mammogram for malignant neoplasm of breast Type 2 diabetes mellitus with other specified complication, without long-term current use of insulin ([facility]) Morbid (severe) obesity due to excess calories ([facility]) Body mass index (BMI) 37.0-37.9, adult Chronic obstructive pulmonary disease, unspecified (HCC) Atherosclerosis of aorta Pure hypercholesterolemia Migraine without aura and without [...] (HCC) Major depressive disorder, single episode, mild Essential hypertension Unspecified essential hypertension Tremors of nervous system Anxiety Anxiety state, unspecified Migraine without aura and without status migrainosus, not intractable documented in this encounter [facility] Healthcare Summary Purpose Family History Relationship Condition Age at Onset Recorded Date/T lance father Malignant neoplasm Unknown motherMalignant neoplasmUnknownDiabetes mellitusUnknownHeart diseaseUnknown HypertensionUnknown Advance Directives Advance Directive Response Recorded Date/ Time Advance Directives No March 22, 2024 9:11am Chief Complaint and Reason for Visit Chief Complaint Right eye irritation , redness Additional Source Comments INFORMATION SOURCE (unrecogn ized section and content) DATE CREATED AUTHOR 08/30/2021 [facility] DATE CREATED AUTHOR AUTHOR'S ORGANIZ ATION 12/15/2021 [facility] 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 DATE CREATED AUTHOR AUTHOR'S ORGANIZ ATION 01/05/2023 [facility] DATE CREATED AUTHOR AUTHOR'S ORGANIZ ATION 09/14/2024 [facility] DATE CREATED AUTHOR AUTHOR'S ORGANIZ ATION 04/09/2025 [facility] EPIC DATE CREATED AUTHOR AUTHOR'S ORGANIZ ATION 05/16/2025 [facility] Care Teams (unrecognized sec tion and content) Team Status: Active Member Role Status Dates Sandy Youssef MD Primary Care Provider Active Team Status: Inactive Member Role Status Dates Sandy Youssfe MD Primary Care Provider Active S tart: March 22, 2024 End: March 22, 2024Kentrell Diana ProviderActiveStart: March 22, 2024 End: March 22, 2024Team MemberRelationshipSpecialtyStart DateEnd Date Sandy Youssef MD [address] [facility] [address] [place] [address] PCP - Generalmily Medicine12/21/22Team MemberRelationshipSpecialtyStart DateEnd Date Sandy Youssef MD [address] [facility] [address] [place] [address] PCP - GeneralFamily Medicine12/21/22Team MemberRelationshipSpecialtyStart DateEnd Date Sandy Youssef MD [address] [facility] [address] [place] [address] PCP - GeneralFamily Medicine12/21/22Team MemberRelationshipSpecialtyStart DateEnd Date Sandy Youssef MD [address] [place] [address] [place] [address] PCP - GeneralFamily Medicine12/21/22Team MemberRelationshipSpecialtyStart DateEnd Date Sandy Youssef MD [address] [place] [address] [place] [address] PCP - GeneralFamily Medicine12/21/22Team MemberRelationshipSpecialtyStart DateEnd Date Sandy Youssef MD [address] [place] [address] [place] [address] PCP - GeneralFamily Medicine12/21/22Team MemberRelationshipSpecialtyStart DateEnd Date Sandy Youssef MD [address] [place] [address] [place] [address] PCP - GeneralFamily Medicine12/21/22Team MemberRelationshipSpecialtyStart DateEnd Date Sandy Youssef MD [address] [place] [address] [place] [address] PCP - GeneralFamily Medicine12/21/22Team MemberRelationshipSpecialtyStart DateEnd Date Sandy Youssef MD [address] [place] [address] [place] [address] PCP - GeneralFamily Medicine12/21/22Team MemberRelationshipSpecialtyStart DateEnd Date Sandy Youssef MD [address] [place] [address] [place] [address] PCP - GeneralFamily Medicine12/21/22Team MemberRelationshipSpecialtyStart DateEnd Date Sandy Youssef MD [address] [facility] [address] [place] [address] PCP - Generalmily Medicine12/21/22Team MemberRelationshipSpecialtyStart DateEnd Date Sandy Youssef MD [address] [facility] [address] [place] [address] PCP - Generalmily Medicine12/21/22Team MemberRelationshipSpecialtyStart DateEnd Date Sandy Youssef MD [address] [facility] [address] [place] [address] PCP - Generalmily Medicine12/21/22Team MemberRelationshipSpecialtyStart DateEnd Date Sandy Youssef MD [address] [facility] [address] [place] [address] PCP - Generalmily Medicine12/21/22Team MemberRelationshipSpecialtyStart DateEnd Date Sandy Youssef MD [address] [facility] [address] [place] [address] PCP - Generalmily Medicine12/21/22Team MemberRelationshipSpecialtyStart DateEnd Date Sandy Youssef MD [address] [facility] [address] [place] [address] PCP - GeneralFamily Medicine12/21/22 Goals (unrecognized section and content) Goals may be documented in a n alternate section Reason for Visit (unrecogniz ed section and content) ReasonCommentsMed RefillReasonCommentsDiabetesLast A1c was 6.5ReasonOnset Date CommentsMed [id number]st 5.7 FOR RECORDS PERTAINING TO PATIENTS WHO [...] BE BASED ON THE PRIMARY CLINICAL RECORDS. [facility] [email or web address], [facility]. provides no warranty or guarantee of the accuracy or completeness of information in this document.
--- NOTE | 2025-05-21 08:15 | PM.CN ---
Consult Note: HPI Data of Consult Patient: known to practice within the last 3 years Consult date: 05/21/25 Requesting Physician: Josefina Graves NP Primary Care Provider: SANDY YOUSSEF Consult Narrative Reason for consult: low back and bilateral hip pain Narrative: Nesha Dallas a pleasant 54 year old female returns for care of chronic bilateral low back and SIJ pain > 5 years unresponsive to heat, ice, tylenol, nsaids, and > 6 weeks of provider guided HEP. prior imaging consistent with multilevel degeneration and facet arthropathy. Pt notes significant improvement from prior injections, notes worsening pain over the last 6 months without injury. Pain today 3-4/10 aching increasing to 7/10 with twisting, bending, pushing, pulling, lifting, housework. Pt finds benefit to sitting, lying, and sleep. currently on duloxetine, meloxicam, flexeril, xanax prn with minimal benefit. recently underwent bilateral SIJ injections with significant improvement in bilateral hip pain, noting 90% improvement. continues to endorse moderate to severe axial low back pain. cc:: CC: Josefina Graves NP Review of Systems ROS Musculoskeletal Reports: back pain; Denies: extremity pain PFSH PFS Medical History Surgical History History of tonsillectomy ?Z90.89 - Acquired absence of other organs (ICD-10) H/O hemorrhoidectomy ?Z98.890 - Other specified postprocedural states (ICD-10) H/O: hysterectomy ?Z90.710 - Acquired absence of both cervix and uterus (ICD-10) H/O ovarian cystectomy ?Z98.890 - Other specified postprocedural states (ICD-10) ?Z87.42 - Personal history of other diseases of the female genital tract (ICD-10) History of cholecystectomy ?Z90.49 - Acquired absence of other specified parts of digestive tract (ICD-10) History of appendectomy ?Z90.49 - Acquired absence of other specified parts of digestive tract (ICD-10) S/P ?Z98.891 - History of uterine scar from previous surgery (ICD-10) Social History Smoking status: Heavy tobacco smoker Gender Identity: female Meds Home Medications and Allergies Home Medications ?Medication ?Instructions ?Recorded ?Confirmed ?Type 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 1 tab PO QDAY 01/03/23 05/11/25 History amlodipine 10 mg tablet 10 mg PO DAILY 01/03/23 05/11/25 History cyclobenzaprine 10 mg tablet 5 mg PO QPM 01/03/23 05/11/25 History duloxetine 60 mg capsule,delayed 90 mg PO DAILY 01/03/23 05/11/25 History release (Cymbalta) olanzapine 5 mg tablet 10 mg PO QPM 01/03/23 05/11/25 History omega 7-fne-bfg-fish oil 1,000 mg 1 cap PO DAILY 01/03/23 05/11/25 History (120 mg-180 mg) capsule (Fish Oil) omeprazole 20 mg capsule,delayed 40 mg PO DAILY 01/03/23 05/11/25 History release potassium chloride 10 mEq 10 meq PO DAILY 01/12/23 05/11/25 History tablet,extended release (K-Tab) alprazolam 0.5 mg tablet 0.5 mg PO DAILY 04/23/25 05/11/25 History atorvastatin 40 mg tablet 40 mg PO DAILY 04/23/25 05/11/25 History dextromethorphan IR 45 1 tab PO DAILY 04/23/25 05/11/25 History mg-bupropion ER 105 mg biphasic tablet (Auvelity) furosemide 20 mg tablet 20 mg PO DAILY 04/23/25 05/11/25 History meloxicam 7.5 mg tablet 7.5 mg PO BID PRN pain #60 tabs 04/23/25 05/11/25 Rx metformin 500 mg tablet 500 mg PO DAILY 04/23/25 05/11/25 History rimegepant 75 mg disintegrating 75 mg PO DAILY PRN migraine 04/23/25 05/11/25 History tablet (Nurtec ODT) headache Allergies Allergy/AdvReac Type Severity Reaction Status Date / Time hydromorphone (From Dilaudid) Allergy Mild itch Verified 05/11/25 07:34 Exam Constitutional Documenting provider has reviewed patient's vital signs: yes Common normals: no apparent distress, oriented x3, healthy appearing, alert and well nourished General appearance: cooperative HENMT Common normals: normocephalic, hearing grossly normal bilaterally and moist oral mucous membranes Head and scalp: normocephalic Eye Common normals: PERRL Pupil: PERRL Neck & C-Spine Common normals: full ROM General: normal visual inspection Chest Common normals: inspection of chest normal Respiratory Common normals: normal respiratory effort, no retractions and no use of accessory muscles Back & Pelvis Lumbar spine/lower back: ROM limited, pain with ROM, lumbar spinal tenderness and straight leg raise negative bilaterally Sacroiliac joints: SI joints normal Other: bilateral sij negative jennifer(patricks), gaenslens, thigh thrust, compression test strength 5/5 in BLE sensation intact BLE Neuro Common normals: oriented x3 Sensorium/orientation: alert Psych Common normals: mental status grossly normal, thought process normal, cooperative, affect normal, speech normal and activity/motor behavior normal Speech: normal speech Thought process: normal thought process Results Imaging lumbar xray : Attestation: I have reviewed the pertinent imaging results. Radiologist's impression: Vertebral body heights appear maintained. Endplate and facet joint degenerative changes with moderate disc space narrowing L4-L5 L5-S1 which has progressed since 2022. Additional Findings Additional findings: If on a controlled substance or opioids, I have checked an [place]AR[place] report on this patient and there are no aberrancies noted in the prescribing history.??If on a controlled substance or opioid a drug screen was completed and reviewed within the last year, and if there has not been a drug screen completed we ordered one today to monitor higher risk, state monitored pain medication use. As part of providing excellent, safe, comprehensive care, the following was completed at our patient's visit: 1. A medication reconciliation and review to ensure accurate knowledge of current/active medications, including asking our patients to inform us about any ojst-rwu-krhyjfo medications or herbal remedies/nutritional supplements/alternative remedies. 2. A review to specifically ensure our patients have had annual screening for screening for depression, screening for tobacco use, and screening for unhealthy alcohol use. For concerning screenings had a discussion with the patient, provided patient education, and recommended follow-up with primary care provider when appropriate. If patient noted with a risk of falling, they received education on strength, gait, and balance training to prevent future risk of falling. Portions of this note may have been carried over from the previous visit and updated as appropriate. Please note this office utilizes paper charting in addition to the electronic medical record. A list of current medications, vitals, and PMH is available there as the clinical staff outside of myself do not have access to [employer] charting during the clinic day operations. As part of providing quality comprehensive care the current medications, vitals, and PMH were reviewed in the paper chart. Assessment and Plan Assessment and Plan (1) Lumbar spondylosis: (2) Sacroiliitis: Assessment and Plan: 05/11/25 bilateral SIJ injection >75% improvement ongoing Plan The patient has had over 3 months of moderate to severe low back pain with functional impairment and inadequate response to conservative care including NSAIDS (unless there are contraindication such as concurrent blood thinners), multiple oral or topical pain medications, and home exercise program/physical therapy.? Patient has completed >6 weeks of guided home exercise program and/or formal physical therapy program without relief of their symptoms.? The Oswestry Disability Index was completed, and the patient scored a 30%.? lumbosacral xrays reviewed with pt. proceed with bilateral L4-5 L5-S1 mbb x2 under fluoroscopy in consideration of RFA for facet mediated low back pain continue meloxicam 7.5mg bid prn pain take with food continue flexeril 5mg PRN pain/spasms, can refill at 5-10mg TID PRN pain/spasms if needed. sparingly utilizing at this time f/u after each injection
== END 2025-05-21 07:56 | disposition home or self-care (01) ==
LOC: PM 07:56
PROVIDERS: PCP Family Medicine; Visit Provider Nurse Practitioner
DX: M47.816 Spondylosis without myelopathy or radiculopathy, lumbar region (principal); M46.1 Sacroiliitis, not elsewhere classified
CPT/HCPCS: G0463

== ENCOUNTER 2025-06-01 08:31 | Day surgery (SDC) | payer OTHER, SELFPAY ==
--- OUTSIDE RECORDS SUMMARY | 2025-05-05 02:30 | XMS_ITS ---
Author Organization The [facility] in [place] Address [address] [place] [address] Care Team Providers Care Business Operations Director Name Role Phone oJsey Gonsalez MD Primary Care Provider Anders Bartlett Unavailable [phone] REASON FOR VISIT 1 year F/U Asthma/COPD Encounters Encounter Location Date Provider Diagnosis Pulmonary Medicine [address] [address] 05/05/2025 Anders Hickey Plan Of Treatment No Information Progress Notes * Nesha DALLAS ADOB:[birth year] (54 yo F)Acc No.[id number]:05/05/2025 UNLOCKED PROGRESS NOTE Follow Up Patient: Corine DELACRUZ Nesha Ziyad :?Anders Hickey DODOB:1970???Age:54 Y ???Sex:FemaleDate:05/05/2025Phone:[phone]:[address] [id number]:Josey Gonsalez MD Subjective: * Chief Complaints: * 1 . 1 year F/U Asthma/COPD. * Medical History: Objective: * Vitals: Assessment: Plan: * Treatment: * * Electronic signature of Anders Hickey DO on 06/01/2025 at 08:34 AM ESTSign off status: PendingVisit Status:?OFF CANC (OFFICE CANCEL) * Provider: Kim Hickey DO Date: 1 Generated for Printing/Faxing/eTransmitting on:?06/01/2025 08:34 AM EST
--- OUTSIDE RECORDS SUMMARY | 2025-06-01 08:34 | XMS_ITS | Encounter Summary ---
Author Organization [facility] Address [address] [place] [address] Care Team Providers Care Diabetes Educator Name Role Phone Josey Gonsalez MD Primary Care Provider [phone] Encounter Details DateTypeDepartmentCare Team (Latest Contact Info)Wexpdcidpct04/28/2025bstract [facility] [place] [facility] [address] [place] [address] Josey Gonsalez MD [address] [place], [place] [id number] Social History Tobacco UseTypesPacks/DayYears UsedDateSmoking Tobacco: FhcaspYyxnuqqfqw437 Started: 1985Smokeless Tobacco: NeverAlcohol UseStandard Drinks/WeekCommentsYes0 (1 standard drink = 0.6 oz pure alcohol)1-2 drinks monthly or less, caffeine yes coffee,sodaSocial Connection and Isolation PanelAnswerDate RecordedIn a typical week, how many times do you talk on the phone with family, friends, or neighbors?Patient phpgoets39/25/2024How often do you get together with friends or relatives?Patient tusxzxkc77/25/2024How often do you attend rastafarian or scientology services?Patient nrnqsnez10/25/2024Do you belong to any clubs or organizations such as rastafarian groups, unions, fraternal or athletic groups, or school groups?Patient xvojhspj99/25/2024How often do you attend meetings of the clubs or organizations you belong to?Patient svhfuyfc47/25/2024Are you , , , , never , or living with a partner? 4AUDIT-CAnswerDate RecordedQ1: How often do you have a drink containing alcohol?Patient pfehmtgv95/25/2024Q2: How many drinks containing alcohol do you have on a typical day when you are drinking?Patient ovnpdyfa61/25/2024Q3: How often do you have six or more drinks on one occasion?Patient hxeiisrh44/25/2024 Overall Financial Resource Strain (CARDIA)AnswerDate RecordedHow hard is it for you to pay for the very basics like food, housing, medical care, and heating? Patient syyjtppv71/25/2024HQ-2AnswerDate RecordedPatient Health Questionnaire-2 Leouh616Hunger Vital SignAnswerDate RecordedWithin the past 12 months, you worried that your food would run out before you got the money to buymore. Patient /25/2024Within the past 12 months, the food you bought just didn't last and you didn't have money to get more.Patient abtstcxj30/25/2024 PRAPARE - TransportationAnswerDate RecordedIn the past 12 [...] steady place to sleep or slept in waterproofelter (including now)?No10/22/2023CommentsUnknownSex and Gender InformationValueDate RecordedSex Assigned at BirthNot on fileLegal SexFemale 10/11/2022 7:00 PM EDTGender IdentityNot on fileSexual OrientationNot on file documented as of this encounter Plan of Treatment DateTypeDepartmentCare Team (Latest Contact Info)Qwbjgltrabv19/15/2025 8:15 AM ESTOffice Visit [facility] [place] [facility] [address] [place] [address] Josey Gonsalez MD [address] [place] [address] documented as of this encounter Goals GoalPatient Goal TypeAssociated ProblemsRecent ProgressPatient-Stated?Author Help patient manage antidepressant medication Care PlanPatient on antidepressant monitoring Josey Caceres MD Baseline PHQ-9 Care PlanBaseline PHQ-9Josey Peterson, MDdocumented as of this encounter Visit Diagnoses Not on filedocumented in this encounter Additional Health Concerns Active ProblemsNoted DateDiagnosed DatePatient on antidepressant monitoring plan 5Baseline PHQ-9004/07/2025documented as of this encounter Care Teams Team MemberRelationshipSpecialtyStart DateEnd Date Josey Gonsalez MD [address] [facility] [address] [place] [address] PCP - GeneralFamily Medicine12/21/22documented as of this encounter
--- OUTSIDE RECORDS SUMMARY | 2025-06-01 08:34 | XMS_ITS | Patient Health Record ---
Author Organization [facility] [place] Address [address] [place] [address] Care Team Providers Care Bean Viner Name Role Phone Josey Gonsalez MD Primary Care Provider Anders Bartlett Unavailable [phone] Allergies Allergen (clinical drug ingredient) Drug/Non Drug Allergy documented on EMR Reaction Allergy Type Onset Date Status hydromorphone Dilaudid Itching Drug Allergy Active Reason For Referral No Information Medications Medication SIG (Take, Route, Frequency, Duration) Notes Start Date End Date Status Cyclobenzaprine HCl 10 MG 1 tablet at bedtime as needed Orally Once a day ActivePotassium Chloride ER 10 MEQ1 tablet with food Orally Twice a dayActive DULoxetine HCl 60 MG1 capsule Orally Once a dayActiveIpratropium-Albuterol 0.5- 2.5 (3) MG/3ML3 mL as needed Inhalation every 6 hrsActiveLoratadine 10 MG1 tablet Orally Once a dayActiveAlbuterol Sulfate HFA 108 (90 Base) MCG/ACT2 puffs as needed Inhalation every 4 hrsActiveMagnesium Glycinate 100 MGas directed OrallyActiveALPRAZolam 0.5 MGOral; Duration: 30 DaysActivemetFORMIN HCl 500 MG1 tablet with a meal Orally Once a dayActiveamLODIPine Besylate 10 MG1 tablet Orally Once a dayActiveMontelukast Sodium 10 MG1 tablet Orally Once a day; Duration: 30 days04/23/2023ctiveAspirin 81 81 MG1 tablet Orally Once a day ActiveOLANZapine 5 MG1 tablet Orally Once a dayActiveAtorvastatin Calcium 10 MG1 tablet Orally Once a dayActiveOmega 3 1000 MG1 capsule Orally Once a dayActive Centrum Silver -as directed OrallyActiveOzempic (1 MG/DOSE) 4 MG/3MLDIAL AND INJECT 1 MG UNDER THE SKIN ONE DAY A WEEK Subcutaneous; Duration: 28 DaysActive traMADol HCl 50 MG1 tablet as needed Orally Once a dayActiveGabapentin 300 MG1 capsule Orally Once a dayActiveTrelegy Ellipta 100-62.5-25 MCG/ACT1 puff Inhalation Once a dayActive Immunizations Vaccine Route Administration Date Status Comme nts Flu, Fluzone (10379) 6 mos+, single-dose syringe/vial (5134-5600) Unknown 06/15/2022 Administered SARS-COV-2 (COVID 19) bivalent 30 mcg/0.3 ml uqazLpisaps04/17/2022dministered Social History Tobacco Use: Social History Observation Description Date Details (start date - stop date) Current Smoker NA - NA Tobacco Use/Smoking Question Answer Notes Patient is a current smoker Tobacco Control (Standard) Question Answer Notes Tobacco use: Current every day smoker Additional Findings: Tobacco usere-cigarette,Moderate cigarette smoker (10-19 cigs/day) Problems Problem Type SNOMED Code ICD Code Onset Dates Problem Status W/U Status Risk Notes Problem Obesity (177531987) Obesity, unspecified (E66.9) ActiveconfirmedProblemUncomplicated moderate persistent asthma (719540267) Moderate persistent asthma, uncomplicated (J45.40)ActiveconfirmedProblemLong- term current use of inhaled steroid (118273244)intermediate (current) use of inhaled steroids (Z79.51)ActiveconfirmedProblemChronic obstructive pulmonary disease (94386725)Chronic obstructive pulmonary disease (J44.9)Activeconfirmed ProblemHypertension (75691663)Hypertension (I10)ActiveconfirmedProblemCOPD - Chronic obstructive pulmonary disease (21571973)COPD (chronic obstructive pulmonary disease) (J44.9)ActiveconfirmedProblemChronic kidney disease (257769080)Chronic kidney disease (N18.9)ActiveconfirmedProblemMental disorder caused by drug (891878469)Cigarette nicotine dependence with nicotine-induced disorder (F17.219)ActiveconfirmedProblemLaboratory test result abnormal (454721200)Abnormal laboratory test (R89.9)ActiveconfirmedProblemLung field abnormal (497627677)Ground glass opacity present on imaging of lung (R91.8) ActiveconfirmedProblemRenal cyst (306321885)Bilateral renal cysts (N28.1)Active confirmedProblemBody mass index 35.00 to 39.99 (996231662724612)Body mass index [BMI] 37.0-37.9, adult (Z68.37)Activeconfirmed Encounters Encounter Location Date Provider Diagnosis [facility] [address] [place] [address] 03/18/2025 Anders Hickey Plan Of Treatment Pending Test Test Name [...] Coverage End Date [employer] [address] [address] [place] [address] [id number] Nesha Dallas Self - patient is the insured Medical (General) History Medical History History ICD Code Depression F32.9 Anxiety F41.9 Essential hypertension I10 Bilateral renal cysts N28.1 Cigarette nicotine dependence with nicot ine-induced disorder F17.219 Ground glass opacity present on imaging of lung R91.8 Moderate persistent asthma, uncomplicate d J45.40 Surgical History Surgery Date(Month/Year) hysterectomy tonsillectomy and adenoidectomyappendectomycholecystectomycesarean sectioncyst removal-ovarianhemorrhoidectomyHospitalization History Reason Date(Month/Year) Sepsis-[facility] 01/11/2023
--- OUTSIDE RECORDS SUMMARY | 2025-06-01 08:34 | XMS_ITS | Encounter Summary ---
Author Organization [facility] Address [address] [place] [address] Care Team Providers Care Signal Technician Name Role Phone Josey Youssef MD Primary Care Provider [phone] Encounter Details DateTypeDepartmentCare Team (Latest Contact Info)Amnppvudjta84/23/2024linisync Result Encounter [facility] External Department Unsolicited Provider, Generic External Data Social History Tobacco UseTypesPacks/DayYears UsedDateSmoking Tobacco: Every DayCigarettes Smokeless Tobacco: NeverAlcohol UseStandard Drinks/WeekCommentsYes0 (1 standard drink = 0.6 oz pure alcohol)1-2 drinks monthly or less, caffeine yes coffee,soda Social Connection and Isolation PanelAnswerDate RecordedIn a typical week, how many times do you talk on the phone with family, friends, or neighbors?Patient wuascwbb06/25/2024How often do you get together with friends or relatives? Patient qdksinix06/25/2024How often do you attend christian or protestant services? Patient hggvjooa59/25/2024Do you belong to any clubs or organizations such as christian groups, unions, fraternal or athletic groups, or school groups?Patient iyqpaklb67/25/2024How often do you attend meetings of the clubs or organizations you belong to?Patient dtdqowak23/25/2024re you , , , , never , or living with a partner?Ojebdiv8110/22/2023UDIT-C AnswerDate RecordedQ1: How often do you have a drink containing alcohol?Patient xfljiulx49/25/2024Q2: How many drinks containing alcohol do you have on a typical day when you are drinking?Patient /25/2024Q3: How often do you have six or more drinks on one occasion?Patient xkklamoy99/25/2024Overall Financial Resource Strain (CARDIA)AnswerDate RecordedHow hard is it for you to pay for the very basics like food, housing, medical care, and heating?Patient trwsgiwm88/25/2024HQ-2AnswerDate RecordedPatient Health Questionnaire-2 Score0 04/07/2025Hunger Vital SignAnswerDate RecordedWithin the past 12 months, you worried that your food would run out before you got the money to buymore.Patient rbcqtygc38/25/2024Within the past 12 months, the food you bought just didn't last and you didn't have money to get more.Patient wutdyhzc36/25/2024RAPARE - TransportationAnswerDate RecordedIn the past 12 months, [...] steady place to sleep or slept in treadwellelter (including now)?No10/22/2023CommentsUnknownSex and Gender InformationValueDate RecordedSex Assigned at BirthNot on fileLegal SexFemale 10/11/2022 7:00 PM EDTGender IdentityNot on fileSexual OrientationNot on file documented as of this encounter Functional Status * Over the past 2 weeks, how often have you been bothered by any of the following problems?QuestionAnswerDate of AssessmentAuthorLittle interest or pleasure in doing thingsNot at all04/07/2025 7:26 AM Elysia Aggarwal MA Feeling down, depressed, or hopelessNot at all04/07/2025 7:26 AM Elysia Aggarwal [facility]. [facility] Health Questionnaire-2 Ztzhw938 7:26 AM Elysia Aggarwal MA documented as of this encounter Plan of Treatment DateTypeDepartmentCare Team (Latest Contact Info)Ryqorikvumz50/15/2025 8:15 AM ESTOffice Visit [facility] [place] [facility] [address] [place] [address] Josey Youssef MD [address] [place] [address] documented as of this encounter Procedures Procedure NamePriorityDate/TimeAssociated DiagnosisCommentsCT CHEST WO CON 04/21/2024 1:25 PM EDT documented in this encounter Results * CT CHEST WO CON (04/21/2024 1:25 PM EDT)Anatomical RegionLateralityModality OtherSpecimen (Source)Anatomical Location / LateralityCollection Method / VolumeCollection TimeReceived Time04/21/2024 1:25 PM EDT Narrative 04/21/2024 1:28 PM EDT [facility] ?[address] ? [place] [address] ? CT Scan Report ? Signed ? Patient: DHARA DALLAS ?MR#: [id number] ?? : 1970 ?Acct:[id number] ?? Age/Sex: 53 / F ?ADM Date: 04/18/24 ?? Loc: CT ? Attending Dr: Melisa Blanc D.O. ? Ordering Physician: Melisa Blanc D.O. ?? Date of Service: 04/18/24 ?? Procedure(s): CT chest wo con ?? Accession Number(s): [id number] ? cc: JOSEY YOUSSEF ? [facility] ? [address] ? [place] [address] ? Patient Name: ?? DHARA DALLAS ? MRN: [id number] ? date: 1970 ?Sex: F ?? Assigned Patient Location: CT ?? Current Patient Location: CT ?? Accession/Order Number: [id number] ?? Exam Date: 04/18/2024 ??07:40 ?Report Date: 04/21/2024 ??13:25 ? At the request of: ?? MELISA ??JAYASHREE ? Procedure: ??CT chest wo con ? EXAMINATION: CT chest wo con ? HISTORY: Ground glass opacity present on imaging of lung R91.8 ? COMPARISON: 04/13/2023 ? TECHNIQUE: Multi-planar CT images were created with IV contrast. Axial, ?? Coronal, and Sagittal images. Dose reduction techniques were achieved by using ? automated exposure control and/or adjustment of mA and/or kV according to ?? patient size and/or use of iterative reconstruction technique. ? FINDINGS: ?? LUNGS: Scattered groundglass and linear opacities are noted most significant ?? in ?? the right upper lobe, lingula and left lower lobes. Atelectasis and/or scar is ? favored. A few scattered punctate pulmonary nodules stable both in number and ?? size from the prior exam. ?? PLEURA: No mass, effusion, or pneumothorax. ?? VASCULATURE: No abnormality. ?? FUNMI: No mass or adenopathy. ?? MEDIASTINUM: No mass or adenopathy. ?? CARDIAC: No enlargement. Small amount of pericardial fluid felt to be within ?? normal limits ?? Coronary arteries: Absent ?? AORTA: No aortic aneurysm. Minimal calcific atherosclerosis ?? CHEST WALL: No mass or axillary adenopathy. ?? BONES: No bone lesion or fracture. ?? LIMITED ABDOMEN: 2 focal areas of hypodensity one in the right hepatic lobe ?? measuring 2.46 m axial image 105 partially visualized in the second in the ?? caudate measuring 1.8 cm axial image 102. Partially visualized 5.3 cm ?? hyperdense lesion posterior left kidney possibly a hyperdense cyst ?? OTHER: Negative. ? CT/CT chest wo con ?? IMPRESSION: ? Stable scattered patchy parenchymal infiltrates and punctate nodules ? Partially visualized 5.3 cm hypodense lesion of the left kidney possibly a ?? hyperdense cyst ? 2 focal hypodensities in the liver, nonspecific but stable ? Electronically authenticated by: MELYSSA ??GISSELLE ?? Date: 04/21/2024 ??13:25 ? Dictated By: ?Melyssa Pitts M.D. ? Signed By: ?04/21/24 1328 ? DD/ 1325 ? TD/TT: ? Meat Supervisor: Procedure Note Radiology, Radiologist, MD - 04/21/[address] [address] [address] Scan Report Signed Patient: DHARA DALLAS AMR#: [id number] : 1970Acct:[id number] Age/Sex: 53 / FADM Date: 04/18/24 Loc: CT Attending Dr: Melisa Blanc D.O. Ordering Physician: Melisa Blanc D.O. Date of Service: 04/18/24 Procedure(s): CT chest wo con Accession Number(s): [id number] cc: JOSEY YOUSSEF [address] [address] Patient Name: DHARA DALLAS MRN: [id number] date: 1970 Sex: F Assigned Patient Location: CT Current Patient Location: CT Accession/Order Number: [id number] Exam Date: 04/18/2024 07:40 Report Date: 04/21/2024 [...] M.D. Signed By:04/21/24 1328 DD/ 1325 TD/TT: Meat Supervisor: Authorizing ProviderResult TypeResult StatusGeneric External Data Provider [facility]NC IMAGINGFinal Result documented in this encounter Visit Diagnoses Not on filedocumented in this encounter Care Teams Team MemberRelationshipSpecialtyStart DateEnd Date Josey Youssef MD [address] [place] [address] PCP - GeneralFamily Medicine12/21/22documented as of this encounter
--- OUTSIDE RECORDS SUMMARY | 2025-06-01 08:34 | XMS_ITS | Encounter Summary ---
Author Organization [facility] Address [address] [place] [address] Care Team Providers Care Automotive Hardware Engineer Name Role Phone Josey Gonsalez MD Primary Care Provider [phone] Reason for Visit * ReasonCommentsMed Refill Encounter Details DateTypeDepartmentCare Team (Latest Contact Info)Ctfuhurfpny78/20/2025Refill [facility] [address] [place] [id number] Josey Gonsalez MD [address] [place] [address] Tremors of nervous system; Anxiety; Migraine without aura and without status migrainosus, not intractable Social History Tobacco UseTypesPacks/DayYears UsedDateSmoking Tobacco: IzegraZiznaxxiia266 Started: 1985Smokeless Tobacco: NeverAlcohol UseStandard Drinks/WeekCommentsYes0 (1 standard drink = 0.6 oz pure alcohol)1-2 drinks monthly or less, caffeine yes coffee,sodaSocial Connection and Isolation PanelAnswerDate RecordedIn a typical week, how many times do you talk on the phone with family, friends, or neighbors?Patient /25/2024How often do you get together with friends or relatives?Patient kioplcvu04/25/2024How often do you attend sikhism or hoahaoism services?Patient gswukqrq14/25/2024Do you belong to any clubs or organizations such as sikhism groups, unions, fraternal or athletic groups, or school groups?Patient zzuqzlbq97/25/2024How often do you attend meetings of the clubs or organizations you belong to?Patient euarzasv72/25/2024re you , , , , never , or living with a partner? 10/22/2023UDIT-CAnswerDate RecordedQ1: How often do you have a drink containing alcohol?Patient qdrmnawu48/25/2024Q2: How many drinks containing alcohol do you have on a typical day when you are drinking?Patient /25/2024Q3: How often do you have six or more drinks on one occasion?Patient rdqnyhei46/25/2024 Overall Financial Resource Strain (CARDIA)AnswerDate RecordedHow hard is it for you to pay for the very basics like food, housing, medical care, and heating? Patient vdcvdgfe10/25/2024HQ-2AnswerDate RecordedPatient Health Questionnaire-2 [id number] Vital SignAnswerDate RecordedWithin the past 12 months, you worried that your food would run out before you got the money to buymore. Patient jrpzavrz15/25/2024Within the past 12 months, the food you bought just didn't last and you didn't have money to get more.Patient cfoxwtpc98/25/2024 PRAPARE - TransportationAnswerDate RecordedIn the past 12 [...] Plan of Treatment DateTypeDepartmentCare Team (Latest Contact Info)Yszwwwfpaqf28/15/2025 8:15 AM ESTOffice Visit [facility] [place] [facility] [address] [place] [phone] Josey Gonsalez MD [address] [place] [address] documented as of this encounter Goals GoalPatient [...] MemberRelationshipSpecialtyStart DateEnd Date Josey Gonsalez MD [address] [facility] [address] [place] [address] PCP - GeneralFamily Medicine12/21/22documented as of this encounter
--- OUTSIDE RECORDS SUMMARY | 2025-06-01 08:34 | XMS_ITS | Encounter Summary ---
Author Organization [facility] Address [address] [place] [address] Care Team Providers Care Zoology Technical Officer Name Role Phone Josey Youssef MD Primary Care Provider Encounter Details DateTypeDepartmentCare Team (Latest Contact Info)Boroasjezyn18/20/2024Clinisync Result Encounter [facility] Unsolicited Josey Youssef MD [address] [place], [place] [phone] Social History Tobacco UseTypesPacks/DayYears UsedDateSmoking Tobacco: Every DayCigarettes Smokeless Tobacco: NeverAlcohol UseStandard Drinks/WeekCommentsYes0 (1 standard drink = 0.6 oz pure alcohol)1-2 drinks monthly or less, caffeine yes coffee,soda Social Connection and Isolation PanelAnswerDate RecordedIn a typical week, how many times do you talk on the phone with family, friends, or neighbors?Patient /25/2024How often do you get together with friends or relatives? Patient /25/2024How often do you attend shinto or jehovah's witness services? Patient uhvcghdr31/25/2024Do you belong to any clubs or organizations such as shinto groups, unions, fraternal or athletic groups, or school groups?Patient fsanarep68/25/2024How often do you attend meetings of the clubs or organizations you belong to?Patient rdlounhq31/25/2024re you , , , , never , or living with a partner?Orkqbse2910/22/2023UDIT-C AnswerDate RecordedQ1: How often do you have a drink containing alcohol?Patient /25/2024Q2: How many drinks containing alcohol do you have on a typical day when you are drinking?Patient /25/2024Q3: How often do you have six or more drinks on one occasion?Patient zhplttey24/25/2024Overall Financial Resource Strain (CARDIA)AnswerDate RecordedHow hard is it for you to pay for the very basics like food, housing, medical care, and heating?Patient fzhqxacv38/25/2024HQ-2AnswerDate RecordedPatient Health Questionnaire-2 Score0 04/07/2025Hunger Vital SignAnswerDate RecordedWithin the past 12 months, you worried that your food would run out before you got the money to buymore.Patient xdddbkiu99/25/2024Within the past 12 months, the food you bought just didn't last and you didn't have money to get more.Patient bxbekmiq41/25/2024RAPARE - TransportationAnswerDate RecordedIn the past 12 months, [...] steady place to sleep or slept in [facility] (including now)?No10/22/2023CommentsUnknownSex and Gender InformationValueDate RecordedSex Assigned [...] hopelessNot at all04/07/2025 7:26 AM Elysia Aggarwal MAPatient Health Questionnaire-2 Vsmsp044 7:26 AM Elysia Aggarwal MA documented as of this encounter Plan of Treatment DateTypeDepartmentCare Team (Latest Contact Info)Nowzcazkjkt10/15/2025 8:15 AM ESTOffice Visit [facility] [place] [facility] [address] [place] [address] Josey Youssef MD [address] [place] [address] documented as of this encounter Procedures Procedure NamePriorityDate/TimeAssociated DiagnosisCommentsMM TOMOSYNTHESIS SCREENING BI04/18/2024 12:10 PM EDT documented in this encounter Results * MM TOMOSYNTHESIS SCREENING BI (04/18/2024 12:10 PM EDT)Anatomical Region LateralityModalityOtherSpecimen (Source)Anatomical Location / Laterality Collection Method / VolumeCollection TimeReceived Time04/18/2024 12:10 PM EDT Narrative 04/18/2024 12:11 PM EDT [facility] ?[address] ? [place] [address] ? Mammography Report ? Signed ? Patient: SGDHARA Lackey ?MR#: [id number] ?? : 1970 ?Acct:[id number] ?? Age/Sex: 53 / F ?ADM Date: //24 ?? Loc: MAMMO ? Attending Dr: JOSEY YOUSSEF ? Ordering Physician: JOSEY YOUSSEF ? Results: ? Date of Service: //24 ?Follow Up: ? Procedure(s): MM tomosynthesis screening BI ?? Accession Number(s): [id number] ? cc: JOSEY YOUSSEF ? Patient Name: ? DHARA DALLAS ? MR#: [id number] ? : 1970 ? Exam Date: 04/18/2024 [...] at age 78. ? LOCATION: ? [facility] ? BREAST COMPOSITION: ? There are [...] By: ?Silver Sterling M.D. ? Signed By: ?04/18/241210 ? DD/ 09 ? TD/TT: ? Welding Teacher: Procedure Note Radiology, Radiologist, MD - 04/18/2024 [place] [address] Mammography Report Signed Patient: DHARA DALLAS AMR#: [id number] : 1970Acct:[id number] Age/Sex: 53 / FADM Date: 04/18/24 Loc: MAMMO Attending Dr: JOSEY YOUSSEF Ordering Physician: Taylor YOUSSEFults: Date of Service: 04/18/24Follow Up: Procedure(s): MM tomosynthesis screening BI Accession Number(s): [id number] cc: JOSEY YOUSSEF Patient Name: DHARA DALLAS MR#: [id number] : 1970 Exam Date: 04/18/2024 Ordering Doctor: [...] with lung cancer at age78. LOCATION: [facility] BREAST COMPOSITION: There are scattered areas [...] M.D. Signed By:04/18/24 1211 DD/ 1210 TD/TT: Welding Teacher: Authorizing ProviderResult TypeResult StatusJosey Youssef MDCLINISYNC IMAGING Final Result documented in this encounter Visit Diagnoses Not on filedocumented in this encounter Care Teams Team MemberRelationshipSpecialtyStart DateEnd Date Josey Youssef MD [address] [place] [address] PCP - GeneralFamily Medicine12/21/22documented as of this encounter
--- OUTSIDE RECORDS SUMMARY | 2025-06-01 08:35 | XMS_ITS | Clinical Summary ---
Author Organization [facility] Healthcare Address [address] [place] [address] Care Team Providers Care Boarder Steam Name Role Phone Josey Youssef MD Primary Care Provider Allergies Active AllergyReactionsCriticalityNoted DateCommentsHydromorphoneItching 03/04/2013 Other Reaction(s): Unknown Medications MedicationSigDispense QuantityRefillsLast FilledStart DateEnd DateStatus albuterol HFA 90 mcg/act inhaler 12/21/2022ctive nystatin (Mycostatin) 269028 UNIT/ML suspension 09/07/2022ctive traMADol (Ultram) 50 MG tablet Indications:Other chronic painTAKE ONE TABLET BY MOUTH FOUR TIMES A DAY NEEDED 120 tablet 02/22/2023ctive aspirin 81 MG EC tablet 1 (one) time each day at the same time.Active loratadine (Claritin) 10 MG tablet 1 (one) time each day at the same time.Active rfqforznlpgh-dgez-oepifnea-folic acid (Centrum Silver, geriatric,) tablet as directed [...] Continue Current meds. Spinal stenosis of lumbar nwppfq5804/07/2025bnormal laboratory test result 10/13/2024hronic kidney tkldpjm4310/13/2024Moderate persistent asthma without tibhxsymibnp01/17/2025Renal cyst09/11/2024OPD with chronic plqozvorat02/30/2024 Diabetic nephropathy associated with type 2 diabetes cbwofaxr63/16/2024 Assessment & Plan (10/13/2024 9:08 AM EDT): [...] and importance of healthy diet and exercise. Itpsbmraj96/11/2023 Assessment & Plan (04/09/2023 8:43 AM EDT): Increase fluids, drinking electrolyte scallop binder (current) use of inhaled axglxcgd79/07/2023Lung field abnormal 04/05/2023djustment disorder with rkzbfac2912/26/2022llergic ontdxxdk23/30/2023 Uexsjl9612/26/2022aytime jistytfvwd65/30/2023epressive tdzwosct52/30/2023 Assessment & Plan (04/14/2024 1:17 PM EDT): This is a chronic medical condition that is stable since last assessment. No changes in treatment are suggested at this time. Continue Current meds. Essential iegwjfwjhqyy85/30/2023 Assessment & Plan (04/07/2025 9:48 AM EDT): [...] the importance of taking them as prescribed. [employer] handouts Assessment & Plan (10/13/2024 9:08 AM [...] the importance of taking them as prescribed. [employer] handouts Assessment & Plan (04/14/2024 1:13 PM [...] the importance of taking them as prescribed. [employer] handouts Assessment & Plan (04/09/2023 8:31 AM [...] DASH diet handouts Hot flashes due to aiovxhirv01/30/1819Liayxhvfiyfzphafnivs39/30/2023Irritable bowel syndrome with inmvdblc99/30/2023Leg length krpkdrvduvp17/30/2023Migraine without aura and without status migrainosus, not gfsjhhbilfn31/30/2023 Assessment & Plan (10/23/2023 9:00 AM EDT): [...] frequent Morbid (severe) obesity due to excess ajoakomm34/30/2023 Assessment & Plan (04/14/2024 1:17 PM EDT): Weight loss encouraged Assessment & Plan (04/09/2023 8:30 AM EDT): Weight loss and exercise encouraged Osteoarthritis of lumbar spine12/26/2022Other chronic pain12/26/2022iriformis syndrome of left side12/26/20225893Fipbynhyk31/30/2023Pure hypercholesterolemia 12/26/2022 Assessment & Plan (04/14/2024 1:14 PM EDT): This is a chronic medical condition that is stable since last assessment. No changes in treatment are suggested at this time. Continue Current meds. Stage 3a chronic kidney uzqctui3212/26/2022 Assessment & Plan (10/23/2023 8:56 AM EDT): Saw Nephrology 6-8 months ago Surgical xkxfalmkx33/30/2023Tension wvodtiwl16/30/2023Type 2 diabetes mellitus 12/26/2022 Assessment & Plan [...] of healthy diet and exercise. Sciatic nerve mttbnl1104/06/2017History of ffshfypjkgxo25/14/2016 Resolved Problems ProblemNoted DateDiagnosed DateResolved DatePre-nrnwbrvq82ody mass index (BMI) 37.0-37.9, adult Assessment & [...] patient. Acute exacerbation of chronic obstructive pulmonary Assessment & Plan (04/09/2023 9:18 AM EDT): Trelegy samples given Elevated BP without diagnosis of yfyanaveydci12/30/202309/Finding of above normal blood sifcmpim00H/O total iajukxpwhpwl72/30/2023 04/28/2024Hot ztrshbj94Impaired fasting ixwqnah6712/26/2022 04/14/2024Migraine dfpcxkcr58Obesity (BMI 30.0-34.9)12/26/2022 04/28/20241813Rlznfl49/30/202302/ Assessment & Plan (04/09/2023 8:39 AM EDT): Discussed smoking cessation with the patient. Encouraged patient to cut back and soon quit smoking.Health risks of smoking, and benefits of quitting reviewed with the patient. Encounters DateTypeDepartmentCare SeawVvwgaavcmrw84/28/2025bstract [facility] [address] [facility] [address] [place] [address] Josey Youssef MD 05/18/2025Refill [facility] [address] [facility] [address] [place] [address] Josey Youssef MD Tremors of nervous system; Anxiety; Migraine without aura and without status migrainosus, not fsjvbahsgtr03/25/2025 Clinisync Result Encounter NOMS External Department Unsolicited Provider, Generic External Data 04/23/2025linisync Result Encounter NOMS External Department Unsolicited Provider, Generic External Data 04/21/2025Refill [facility] [address] [facility] [address] [place] [address] Josey Youssef MD Fsqbpcvvz29/17/2025bstract [facility] [address] [facility] [address] [place] [address] Josey Youssef MD 04/07/2025 9:30 AM EDTOffice Visit [facility] [address] [facility] [address] [place] [address] Josey Youssef MD Spinal stenosis of lumbar region, unspecified whether neurogenic claudication present (Primary Dx); Type 2 diabetes mellitus with diabetic nephropathy, without long-term current use of insulin (HCC); Major depressive disorder, single episode, mild ; Essential zvbtxcaeiawk33/09/8710Asgpuq63/17/2025Refill [facility] [address] [facility] [address] [place] [address] Josey Youssef MD Anxietyfrom Last 3 Months Immunizations ImmunizationAdministration DatesNext DueInfluenza, injectable, MDCK, preservative free, ashcpibdqhgj31/13/2021Influenza, injectable, quadrivalent, preservative free06/15/2022Moderna Bivalent Booster Hrezmseqahb45/17/2022 SARS-COV-2 (COVID-19) vaccine, mRNA, spike protein, LNP, bivalent, preservative free, 30 mcg/0.3 mLdose, maria esther-sucrose npvguxbieze91/17/2022 Family History Medical HistoryRelationNameCommentsColon cancerMaternal GrandfatherDiabetes Maternal GrandmotherCancer, DM HTNMotherPassed away ervical cancerMother DiabetesMotherhtnMotherPsoriasisOtherFamily historyHeart diseasePaternal GrandfatherStrokePaternal GrandfatherDiabetesPaternal GrandmotherRelationName StatusCommentsFatherAliveMaternal GrandfatherMaternal GrandmotherDeceasedMother DeceasedOtherFamily historyPaternal GrandfatherPaternal Grandmother Social History Tobacco UseTypesPacks/DayYears UsedDateSmoking Tobacco: CvysyyCpfzwvrhqi529 Started: 1984Smokeless Tobacco: Never Tobacco Cessation:Counseling Given: Not Answered Alcohol UseStandard Drinks/WeekCommentsYes0 (1 standard drink = 0.6 oz pure alcohol)1-2 drinks monthly or less, caffeine yes coffee,sodaSocial Connection and Isolation PanelAnswerDate RecordedIn a typical week, how many times do you talk on the phone with family, friends, or neighbors?Patient sfqtgjet96/25/2024 How often do you get together with friends or relatives?Patient declined 10/22/2023How often do you attend synagogue or presybeterian services?Patient declined 10/22/2023o you belong to any clubs or organizations such as synagogue groups, unions, fraSigniant or athletic groups, or school groups?Patient declined 10/22/2023How often do you attend meetings of the clubs or organizations you belong to?Patient vmrdeuxz66/25/2024re you , , , , never , or living with a partner?Vccnrew0710/22/2023UDIT-C AnswerDate RecordedQ1: How often do you have a drink containing alcohol?Patient fsjofdcc07/25/2024Q2: How many drinks containing alcohol do you have on a typical day when you are drinking?Patient /25/2024Q3: How often do you have six or more drinks on one occasion?Patient nkozsdbx43/25/2024Overall Financial Resource Strain (CARDIA)AnswerDate RecordedHow hard is it for you to pay for the very basics like food, housing, medical care, and heating?Patient /25/2024HQ-2AnswerDate RecordedPatient Health Questionnaire-2 Score0 04/07/2025Hunger Vital SignAnswerDate RecordedWithin the past 12 months, you worried that your food would run out before you got the money to buymore.Patient /25/2024Within the past 12 months, the food you bought just didn't last and you didn't have money to get more.Patient nupwzyyh41/25/2024RAPARE - TransportationAnswerDate RecordedIn the past 12 months, has lack of transportation kept you from medical appointments or from getting medications?No 10/22/2023In the past 12 months, has lack of transportation kept you from meetings, work, or from getting things needed for daily living?No03/ Housing Stability Vital SignAnswerDate RecordedIn the last [...] Last Filed Vital Signs Vital SignReadingTime TakenCommentsBlood Csvzjhvu159/8809 9:27 AM EDT Ffrcy542804/07/2025 9:27 AM PFHMuowpqueavo86.3 ??C (99.2 ??F)01/10/2023 9:23 AM EDTRespiratory Vnki173009/11/2024 9:28 AM ESTOxygen Vhnxdlzaqh76%04/07/2025 9:27 AM EDTInhaled Oxygen Concentration--Hjvqai54.4 kg (217 lb)04/07/2025 9:27 AM EDT Fqgbpu793.1 cm (5' 5 )04/07/2025 9:27 AM EDTBody Mass Index36.1109 9:27 AM EDT Plan of Treatment DateTypeDepartmentCare Team (Latest Contact Info)Wgvptahfshu15/15/2025 8:15 AM ESTOffice Visit N[facility] [address] [facility] [address] [place] [address] Josey Youssef MD [address] [facility] [address] [place] [address] Health MaintenanceDue DateLast DoneCommentsCT Yogbcvbcklak19/01/1970FIT-DNA 1969FIT1969FOBT1969 5343Dniqintavlgro17/01/1970MMR Vaccines (1 of 1 - Standard series)1970DTaP/Tdap/Td Vaccines (1 - Tdap)1976Diabetes: Retinopathy Xhccprgys32/01/1980Hepatitis B Vaccines (1 of 3 - 19+ 3-dose series) 1988Pneumococcal Vaccine: Pediatrics (0 to 5 Years) and At-Risk Patients (6 to 64 Years) (1 of 2 - PCV)1988COVID-19 Vaccine ( - 2024- season) /, 12/23/2021, 07/11/2021, Additional history existsInfluenza Vaccine (#1)/, 07/11/20215312Mgfytkqab07/20/202509/, 2Diabetes: Hemoglobin A1C/03/2025, 10/13/2024, 04/14/2024, Additional history existsDiabetes: Urine Protein Eypuksrsz32/13/212132/, 04/09/2023, 5124Masxyujfasw20/07/203105/1Colorectal Cancer Screening 12/03/2030HIB VaccinesAged OutNo longer eligible based on patient's age to complete this topicHPV VaccinesAged OutNo longer eligible based on patient's age to complete this topicHepatitis A VaccinesAged OutNo longer eligible based on patient's age to complete this topicIPV VaccinesAged OutNo longer eligible based on patient's age to complete this topicMeningococcal B VaccineAged OutNo longer eligible based on patient's age to complete this topicMeningococcal VaccineAged OutNo longer eligible based on patient's age to complete this topicRotavirus VaccinesAged OutNo longer eligible based on patient's age to complete this topic Goals GoalPatient Goal TypeAssociated ProblemsRecent ProgressPatient-Stated?Author Help patient manage antidepressant medication Care PlanPatient on antidepressant monitoring Josey Caceres MD Baseline PHQ-9 Care PlanBaseline PHQ-9Josey Peterson MD Procedures Procedure NamePriorityDate/TimeAssociated DiagnosisCommentsXR LUMBAR SPINE MIN 4V04/23/2025 9:48 AM EDT XR SACROILIAC JOINT04/23/2025 9:47 AM EDT POCT GLYCATED HEMOGLOBIN, VWUCSEgguadj30/09/2025 9:37 AM EDT Type 2 diabetes mellitus with diabetic nephropathy, without long-term current use of insulin (HCC) MICROALBUMIN / CREATININE URINE PNYHTPrcybgw98/13/2025 2:17 PM EST MM TOMOSYNTHESIS SCREENING BI04/18/2024 12:10 PM EDT VKCWLEKJDMRAfrywnx72/07/2021 12:00 PM EDT from Last 3 Months or Most Recently Relevant to Health Maintenance Results * XR LUMBAR SPINE MIN 4V (04/23/2025 9:48 AM EDT)Anatomical RegionLaterality ModalityOtherSpecimen (Source)Anatomical Location / LateralityCollection Method / VolumeCollection TimeReceived Time04/23/2025 9:48 AM EDT Narrative 04/23/2025 9:50 AM EDT [facility] ?[address] ? [place] [address] ?XRay Report ? Signed ? Patient: DHARA DALLAS ?MR#: [id number] ?? : 1970 ?Acct:[id number] ?? Age/Sex: 54 / F ?ADM Date: 04/23/25 ?? Loc: RAD ? Attending Dr: Tyra Vance SLAB LIFTING ENGINEER ? Ordering Physician: Tyra Vance NP ?? Date of Service: 04/23/25 ?? Procedure(s): XR lumbar spine min 4V ?? Accession Number(s): [id number] ? cc: JOSEY YOUSSEF ; Tyra Vance NP ? [facility] ? [address] ? [place] [address] ? Patient Name: ?? DHARA DALLAS ? MRN: [id number] ? date: 1970 ?Sex: F ?? Assigned Patient Location: PM ?? Current Patient Location: PM ?? Accession/Order Number: [id number] ?? Exam Date: 04/23/2025 ??08:55 ?Report Date: 04/23/2025 ??09:48 ? At the request of: ?? TYRA ??RAJIV ??SLAB LIFTING ENGINEER ? Procedure: ??XR lumbar spine min 4V [...] 2022. ? Impression dictated by: Rafiq Rai Jr. DFay ??04/23/2025 9:48 AM ? Dictation Location: [facility]-- ? Electronically authenticated by: [id number] ??Y ?? Date: 04/23/2025 ??09:48 ? Dictated By: ?Rafiq Rai M.D. ? Signed By: ?04/23/25 0950 ? DD/ 0948 ? TD/TT: ? Footwear Production Machine Operator: Procedure Note Radiology, Radiologist, - 04/23/2025 [place] [address] XRay Report Signed Patient: DHARA DALLAS AMR#: [id number] : 1970Acct:[id number] Age/Sex: 54 / FADM Date: 04/23/25 Loc: RAD Attending Dr: Tyra Vance NP Ordering Physician: Tyra Vance NP Date of Service: 04/23/25 Procedure(s): XR lumbar spine min 4V Accession Number(s): [id number] cc: JOSEY YOUSSEF ; Tyra Vance NP The [place] [id number] Patient Name: DHARA DALLAS MRN: [id number] date: 1970 Sex: F Assigned Patient Location: PM Current Patient Location: PM Accession/Order Number: [id number] Exam Date: 04/23/2025 08:55 Report Date: 04/23/2025 [...] Jr., D.O. 04/23/2025 9:48 AM Dictation Location: [place] [address] Electronically authenticated by: [id number] Y Date: 9:48 Dictated By: Rafiq Rai M.D. Signed By:04/23/25949 DD/ 7 TD/TT: Footwear Production Machine Operator: Authorizing ProviderResult TypeResult StatusGeneric External Data Provider CLINISYNC IMAGINGFinal Result * XR SACROILIAC JOINT (04/23/2025 9:47 AM EDT)Anatomical RegionLaterality ModalityRadiographic ImagingSpecimen (Source)Anatomical Location / Laterality Collection Method / VolumeCollection TimeReceived Time04/23/2025 9:47 AM EDT Narrative 04/23/2025 9:49 AM EDT [facility] ?[address] ? [place] [address] ?XRay Report ? Signed ? Patient: DHARA DALLAS ?MR#: [id number] ?? : 1970 ?Acct:[id number] ?? Age/Sex: 54 / F ?ADM Date: 04/23/25 ?? Loc: RAD ? Attending Dr: Tyra Vance SLAB LIFTING ENGINEER ? Ordering Physician: Tyra Vance NP ?? Date of Service: 04/23/25 ?? Procedure(s): XR sacroiliac joint ELIANE ?? Accession Number(s): [id number] ? cc: JOSEY YOUSSEF ; Tyra Vance NP ? [facility] ? [address] ? [place] [address] ? Patient Name: ?? DHARA DALLAS ? MRN: [id number] ? date: 1970 ?Sex: F ?? Assigned Patient Location: PM ?? Current Patient Location: PM ?? Accession/Order Number: [id number] ?? Exam Date: 04/23/2025 ??08:55 ?Report Date: 04/23/2025 ??09:47 ? At the request of: ?? TYRA ??RAJIV ??SLAB LIFTING ENGINEER ? Procedure: ??XR sacroiliac joint ELIANE ? [...] ? Impression dictated by: Rafiq Rai Jr., D.OInna ??04/23/2025 9:47 AM ? Dictation Location: [place] [address] ? Electronically authenticated by: [id number] ??Y ?? Date: 04/23/2025 ??09:47 ? Dictated By: ?Rafiq Rai M.D. ? Signed By: ?09/25/25 0949 ? DD/ 0947 ? TD/TT: ? Footwear Production Machine Operator: Procedure Note Radiology, Radiologist, MD - 04/23/[address] [address] XRay Report Signed Patient: DHARA DALLAS AMR#: [id number] : 1970Acct:[id number] Age/Sex: 54 / FADM Date: 04/23/25 Loc: RAD Attending Dr: Tyra Vance NP Ordering Physician: Tyra Vacne NP Date of Service: 04/23/25 Procedure(s): XR sacroiliac joint ELIANE Accession Number(s): [id number] cc: JOSEY YOUSSEF ; Tyra Vance NP The [address] [address] Patient Name: DHARA DALLAS MRN: [id number] date: 1970 Sex: F Assigned Patient Location: PM Current Patient Location: PM Accession/Order Number: [id number] Exam Date: 04/23/2025 08:55 Report Date: 04/23/2025 [...] collapse. Impression dictated by: Rafiq Rai Jr., DInnaOInna 04/23/2025 9:47 AM Dictation Location: [place] [address] Electronically authenticated by: [id number] Y Date: 9:47 Dictated By: Rafiq Rai M.D. Signed By:04/23/25 0949 DD/ TD/TT: Footwear Production Machine Operator: Authorizing ProviderResult TypeResult StatusGeneric External Data ProviderIMG XR PROCEDURESFinal Result * POCT Glycated hemoglobin, total (04/07/2025 9:37 AM EDT)ComponentValueRef RangeTest MethodAnalysis TimePerformed AtPathologist SignatureHemoglobin A1C 5.5Specimen (Source)Anatomical Location / LateralityCollection Method / Volume Collection TimeReceived KjbnEcjky18/09/2025 9:37 AM EDT Narrative Authorizing ProviderResult TypeResult StatusJosey Youssef [facility]EROINT [facility] CARE TEST ENTER/EDIT ORDERABLESFinal Result * Microalbumin / creatinine urine ratio (09/11/2024 2:17 PM EST)ComponentValue Ref RangeTest MethodAnalysis TimePerformed AtPathologist SignatureCREATININE, RANDOM BGGLL1539 - 275 mg/dLQUESTALBUMIN, URINE0.4See Note: mg/dLQUESTComment: Reference [...] Performing Organization Information ?Site ID: [id number] ?Name: [employer] [facility] ?Address: [address] [facility], [address] [place] [phone] ?Director: Christiano Escobar MD Authorizing ProviderResult TypeResult StatusJanel Field PALAB URINE ORDERABLESFinal ResultPerforming OrganizationAddressCity/State/ZIP CodePhone Number QUEST * MM TOMOSYNTHESIS SCREENING BI (04/18/2024 12:10 PM EDT)Anatomical Region LateralityModalityOtherSpecimen (Source)Anatomical Location / Laterality Collection Method / VolumeCollection TimeReceived Time04/18/2024 12:10 PM EDT [facility] 04/18/2024 12:11 PM EDT [facility] ?[address] ? [place] [address] ? Mammography Report ? Signed ? Patient: SGDHARA Lackey ?MR#: [id number] ?? : 1970 ?Acct:[id number] ?? Age/Sex: 53 / F ?ADM Date: 04/18/24 ?? Loc: MAMMO ? Attending Dr: JOSEY YOUSSEF ? Ordering Physician: JOSEY YOUSSEF ? Results: ? Date of Service: 04/18/24 ?Follow Up: ? Procedure(s): MM tomosynthesis screening BI ?? Accession Number(s): [id number] ? cc: JOSEY YOUSSEF ? Patient Name: ? DHARA DALLAS ? MR#: [id number] ? : 1970 ? Exam Date: 04/18/2024 [...] at age 78. ? LOCATION: ? [facility] ? BREAST COMPOSITION: ? There are scattered [...] M.D. ? Signed By: ?04/18/241210 ? DD/ ? TD/TT: ? Footwear Production Machine Operator: Procedure Note Radiology, Radiologist, - 04/18/[address] [address] Mammography Report Signed Patient: DHARA DALLAS AMR#: [id number] : 1970Acct:[id number] Age/Sex: 53 / FADM Date: 04/18/24 Loc: MAMMO Attending Dr: JOSEY YOUSSEF Ordering Physician: Taylor YOUSSEFults: Date of Service: 04/18/24Follow Up: Procedure(s): MM tomosynthesis screening BI Accession Number(s): [id number] cc: JOSEY YOUSSEF Patient Name: DHARA DALLAS MR#: [id number] : 1970 Exam Date: 04/18/2024 Ordering Doctor: [...] with lung cancer at age78. LOCATION: [facility] BREAST COMPOSITION: There are scattered [...] M.D. Signed By:04/18/24 1211 DD/ 1210 TD/TT: Footwear Production Machine Operator: Authorizing ProviderResult TypeResult StatusJosey Youssef MDCLINISYNC IMAGING Final Result * Colonoscopy (12/03/2020 12:00 PM EDT)Anatomical RegionLateralityModality EndoscopySpecimen (Source)Anatomical Location / LateralityCollection Method / VolumeCollection TimeReceived Time12/03/2020 12:00 PM EDT Narrative 12/03/2020 12:00 PM EDT PERFORMED AT [facility] LOCATION:[id number] colonic polyp Procedure Note CONVERSION, GENERIC - 12/13/[address] [facility] LOCATION:[id number] colonic polyp Authorizing ProviderResult TypeResult StatusJosey Youssef MDENDOSCOPY PROCEDURE ORDERABLESFinal Result from Last 3 Months or Most Recently Relevant to Health Maintenance Additional Health Concerns Active ProblemsNoted DateDiagnosed DatePatient on antidepressant monitoring plan 04/07/2025aseline PHQ-9004/07/2025 Insurance Care Teams Team MemberRelationshipSpecialtyStart DateEnd Date Josey Youssef MD [address] [place] [address] [facility]12/21/22
--- OUTSIDE RECORDS SUMMARY | 2025-06-01 08:41 | XMS_ITS | CCD ---
Author Organization [facility] Care Team Providers Care Kindergartner Name Role Phone WATTS ., DR AMELIA [...] Primary Care Unavailable KEVEN ESCOBEDO Consulting Unavailable [place] Sandy GOMEZ Primary Care Provider [phone] JANEL CROWDER Attending Unavailable MIKAELSANDY Attending Unavailable MIKAELSANDY Attending Unavailable HEMJANEL MURRY Attending Unavailable LILIAMADISON CALLES Attending Unavailable MIKAELSANDY Attending Unavailable Yamile Lopez MD Attending Unavailable Allergies Allergy ClassificationReported Allergen(s)Allergy TypeDate of OnsetReaction(s) Facility (1 source)HYDROmorphoneDrug Ayxywtj99-29-7526[facility] (20 sources)HYDROmorphoneDrug Iybgwfa81-82-3458UtsdwvyVPXN [facility] Medications Current Medications MedicationDrug Class(es)DatesSig (Normalized)Sig (Original)[id number] 200 actuat albuterol 0.09 mg/actuat metered dose inhaler (20 sources)beta2-Adrenergic AgonistStart: 09-86-9202rsqfmjvhm HFA 90 mcg/act inhaler 12/21/2022 Activealbuterol 0.833 mg/ml / ipratropium bromide 0.167 mg/ml inhalation solution (20 sources)Anticholinergic, beta2-Adrenergic AgonistStart: 09-30-2023 ipratropium-albuterol (Duo-Neb) 0.5-2.5 mg/3 mL nebulizer solution 09/30/2023 ActiveALPRAZolam 0.5 mg oral tablet (20 sources)BenzodiazepineStart: 04-14-2024 End: 46-40-4212mkuv 1 tablet by mouth once daily in the morning, then take 1 tablet by mouth once daily at bedtimeALPRAZolam (Xanax) 0.5 MG tablet Indications: Anxiety TAKE 1 TABLET BY MOUTH EVERY MORNING AND TAKE1 TABLET BY MOUTH EVERY NIGHT AT BEDTIME 60 tablet 05/18/2025 06/17/2025 ActiveamLODIPine 5 mg oral tablet (20 sources)Dihydropyridine Calcium Channel BlockerStart: 04-07-2025 End: 46-45-3132egnp 1 tablet by mouth once dailyamLODIPine (Norvasc) 5 MG tablet Indications: Essential hypertension Take 1 tablet (5 mg) by mouth Daily 04/07/2025 ActiveStart: 08-19-2024 End: 31-94-5358vfvg 1 tablet by mouth once dailyamLODIPine (Norvasc) 10 MG tablet Indications: Essential hypertension TAKE 1 TABLET BY MOUTH DAILY 100 tablet 3 08/19/2024 04/07/2025 Discontinued (Reorder)Start: 25-50-4546ztsm 1 tablet by mouth once dailyamLODIPine (Norvasc) 10 MG tablet Indications: Essential hypertension (CMS/HCC) TAKE ONE TABLET BY MOUTH DAILY 100 tablet 3 08/14/2023 Activeaspirin 81 mg delayed release oral tablet (20 sources)Platelet Aggregation Inhibitor, Nonsteroidal Anti-inflammatory Drug aspirin 81 MG EC tablet 1 (one) time each day at the same time. Active atorvastatin 40 mg oral tablet (20 sources)HMG-CoA Reductase InhibitorStart: 98-11-9333uadi 1 tablet by mouth once dailyatorvastatin (Lipitor) 40 MG tablet Indications: Hypertriglyceridemia TAKE 1 TABLET BY MOUTH DAILY 100 tablet 3 08/19/2024 ActiveStart: 08-51-4352wmnj 1 tablet by mouth once dailyatorvastatin (Lipitor) 40 MG tablet Indications: Hypertriglyceridemia (CMS/HCC) TAKE 1 TABLET BY MOUTH DAILY 100 tablet 1 02/11/2024 Activeazithromycin 250 mg oral tablet (4 sources)Macrolide AntimicrobialStart: 08-05-2024 End: 46-81-1047xlpw 2 tablets by mouth once daily, then [...] 5 mg oral tablet (20 sources)Muscle RelaxantStart: 24-70-5677lgdc 1 tablet by mouth three times dailycyclobenzaprine (Flexeril) 5 MG tablet Indications: Tremors of nervous system TAKE 1 TABLET BY MOUTH 3 TIMES A DAY 90 tablet 1 05/18/2025 ActiveStart: 02-02-2025 End: 65-82-7168ofpw 1 tablet by mouth three times dailycyclobenzaprine (Flexeril) 5 MG tablet Indications: Tremors of nervous system TAKE 1 TABLET BY MOUTH 3 TIMES A DAY 90 tablet 1 02/02/2025 05/18/2025 DiscontinuedStart: 38-19-8618lnfp 1 tablet by mouth three times dailycyclobenzaprine (Flexeril) 5 MG tablet Indications: Tremors of nervous system TAKE 1 TABLET BY MOUTH 3 TIMES A DAY 90 tablet 1 11/24/2024 ActiveStart: 07-07-2024 End: 76-31-2242guqm 1 tablet by mouth three times dailycyclobenzaprine (Flexeril) 5 MG tablet Indications: Tremors of nervous system TAKE 1 TABLET BY MOUTH 3 TIMES A DAY 90 tablet 1 07/07/2024 11/24/2024 DiscontinuedStart: 74-23-7018rwsy 1 tablet by mouth three times dailycyclobenzaprine (Flexeril) 5 MG tablet Indications: Tremors of nervous system TAKE 1 TABLET BY MOUTH 3 TIMES A DAY 90 tablet 1 04/22/2024 ActiveStart: 97-16-3871exjh 5 mg by mouth once daily at bedtimeCyclobenzaprine Active 5 MG PO Daily at bedtime March 22, 2024 12:00amStart: 85-87-5563gsnn 1 tablet by mouth three times daily cyclobenzaprine (Flexeril) 5 MG tablet Indications: Tremors of nervous system TAKE ONE TABLET BY MOUTH THREE TIMES A DAY 90 tablet 1 11/26/2023 Active Dextromethorphan-buPROPion ER (Auvelity) 45-105 MG tablet controlled-release (4 sources)Start: 04-07-2025 End: 71-62-3004gaad 45-105 mg by mouth once dailyDextromethorphan-buPROPion ER (Auvelity) 45-105 MG tablet controlled-release Indications: Major depressive disorder, single episode, mild Take 1 tablet by mouth Daily 30 tablet 04/07/2025 05/07/2025 Tsgexu58 hr diclofenac sodium 100 mg extended release oral tablet (20 sources)Nonsteroidal Anti-inflammatory DrugStart: 67-62-5181nidq 1 tablet by mouth once dailydiclofenac sodium (Voltaren XR) 100 mg 24 hr tablet Indications: Dizziness TAKE 1 TABLET BY MOUTH DAILY 30 tablet 2 04/21/2025 ActiveStart: 98-03-2532hmjy 1 tablet by mouth once dailydiclofenac sodium (Voltaren XR) 100 mg 24 hr tablet Indications: Dizziness TAKE 1 TABLET BY MOUTH DAILY 30 tablet 2 12/29/2024 ActiveStart: 29-72-6948yiyk 1 tablet by mouth once dailydiclofenac sodium (Voltaren XR) 100 mg 24 hr tablet Indications: Dizziness TAKE 1 TABLET BY MOUTH DAILY 30 tablet 2 09/15/2024 ActiveStart: 03-22-2024 End: 30-84-8324Ijlfwcxgde Sodium Discontinued MG PO March 22, 2024 12:00am March 22, 2024 9:35amStart: 51-99-6199zldm 1 tablet by mouth once daily diclofenac [...] capsule (20 sources)Serotonin and Norepinephrine Reuptake InhibitorStart: 95-95-7772bmxm 1 capsule by mouth once dailyDULoxetine (Cymbalta) [address] capsule Indications: Depressive disorder Take 1 capsule (30 mg) by mouth Daily 100 capsule 3 02/16/2025 ActiveStart: 57-28-0264ofvs 1 capsule by mouth once dailyDULoxetine (Cymbalta) [address] capsule Indications: Depressive disorder (CMS/HCC) TAKE 1 CAPSULE BYMOUTH DAILY 30 capsule 2 10/20/2024 ActiveStart: 30-79-1404kwfu 1 capsule by mouth once dailyDULoxetine (Cymbalta) [address] capsule Indications: Depressive disorder TAKE 1 CAPSULE BY MOUTH DAILY 100 capsule 3 08/19/2024 ActiveStart: 95-50-9130ijkn 1 capsule by mouth once dailyDULoxetine (Cymbalta) [address] capsule Indications: Depressive disorder (CMS/HCC) TAKE 1 CAPSULE BY MOUTH DAILY 30 capsule 2 07/21/2024 ActiveStart: 68-49-3087cnbb 1 capsule by mouth once dailyDULoxetine (Cymbalta) [address] capsule Indications: Depressive disorder (CMS/HCC) TAKE 1 CAPSULE BYMOUTH DAILY 30 capsule 2 04/18/2024 Active Start: 65-51-2788zmec 1 capsule by mouth once dailyDULoxetine (Cymbalta) [address] capsule Indications: Depressive disorder (CMS/HCC) TAKE 1 CAPSULE BYMOUTH DAILY 100 capsule 1 02/11/2024 ActiveStart: 80-35-7935jnsc 30 mg by mouth once dailyDuloxetine Active 30 MG PO Daily March 22, 2024 12:00am in addition to 60mg30 actuat fluticasone furoate 0.1 mg/actuat / umeclidinium 0.0625 mg/actuat / vilanterol 0.025 mg/actuat dry powder inhaler (12 sources)Anticholinergic, Corticosteroid, beta2-Adrenergic AgonistStart: 02-01-2023 End: 97-41-7582xdki 1 puff(s) by inhalation in the morning Spkmajmtmmr-Zugssrxtt-Bkesxz (Trelegy Ellipta) 100-62.5-25 MCG/ACT aerosol powder Indications: Acute exacerbation of chronic obstructive pulmonary disease (CMS/HCC) Inhale 1 puff in the morning. 1 each 02/01/2023 08/12/2024 Discontinued (Therapy completed)furosemide 20 mg oral tablet (20 sources)Loop DiureticStart: 03-20-1263yjvx 1 tablet by mouth once daily furosemide (Lasix) 20 MG tablet Indications: Essential hypertension TAKE 1 TABLET(20 MG) BY MOUTH DAILY 100 tablet 1 11/04/2024 ActiveStart: 02-11-2024 End: 36-31-1837elna 1 tablet by mouth once dailyfurosemide (Lasix) 20 MG tablet Indications: Essential hypertension (CMS/HCC) Take 1 tablet (20 mg)by mouth Daily 100 tablet 1 04/14/2024 Activegabapentin 300 mg oral capsule (14 sources)Anti-epileptic AgentStart: 09-11-2024 End: 81-51-2374mzcj 1 capsule by mouth in the morning, [...] days. 30 capsule 09/11/2024 ActiveStart: 12-16-2022 End: 15-75-4730lsvwniepba (Neurontin) 300 MG capsule 12/16/2022 04/28/2024 Discontinued (Other)loratadine 10 mg oral tablet (20 sources)loratadine (Claritin) 10 MG tablet 1 (one) time each day at the same time. ActivemetFORMIN hydrochloride 500 mg oral tablet (20 sources)BiguanideStart: 12-45-8267bbpu 1 tablet by mouth once daily at mealtimemetFORMIN (Glucophage) 500 MG tablet Indications: Hypertriglyceridemia TAKE 1 TABLET BY MOUTH DAILYWITH A MEAL 100 tablet 3 08/19/2024 ActiveStart: 37-85-5186ksoj 1 tablet by mouth once daily at mealtimemetFORMIN (Glucophage) 500 MG tablet Indications: Hypertriglyceridemia (CMS/HCC) TAKE ONE TABLET BY MOUTH DAILY WITH A MEAL 100 tablet 1 02/11/2024 ActivemethylPREDNISolone (2 sources)CorticosteroidStart: 08-12-2024 End: 03-52-6325tzsjfsUZJOGWRdctre (Medrol Dospak) 4 MG tablets Indications: Pansinusitis, unspecified chronicity Follow schedule on package instructions 21 tablet 08/12/2024 08/19/2024 Activemontelukast 10 mg oral tablet (20 sources)Leukotriene Receptor AntagonistStart: 19-46-9014jemufstlaee (Singulair) 10 MG tablet 09/16/2023 Cvpysmqvrxpuehrywd-fcfu-ygznoqwv-folic acid (Centrum Silver, geriatric,) tablet (20 sources)pxjxnvswshpq-pkpw-yduebwlt-folic acid (Centrum Silver, geriatric,) tablet as directed Orally Activenystatin 538114 unt/ml oral suspension (20 sources)Polyene AntifungalStart: 98-77-8779qtjshgzn (Mycostatin) 777277 UNIT/ML suspension 09/07/2022 Activeofloxacin 3 mg/ml ophthalmic solution (6 sources)Quinolone AntimicrobialStart: 03-22-2024 End: 43-58-8205zmlyjhycy (Ocuflox) 0.3 % ophthalmic solution Four times daily 03/22/2024 04/28/2024 Discontinued (Therapy completed)Start: 70-59-6986errw 1 drop(s) into the eye(s) four times dailyOfloxacin Active 2 DROPS OPHTHALMIC Four times daily 12 03March 22, 2024 12:00am right eyeOLANZapine 10 mg oral tablet (20 sources)Atypical AntipsychoticStart: 05-00-0865fegb 1 tablet by mouth once dailyOLANZapine (ZyPREXA) 10 MG tablet Indications: Adjustment disorder with anxiety TAKE 1 TABLET BY MOUTH DAILY 100 tablet 3 08/19/2024 ActiveStart: 26-88-9151zonq 1 tablet by mouth once dailyOLANZapine (ZyPREXA) 10 MG tablet Indications: Adjustment disorder with anxiety (CMS/HCC) TAKE 1 TABLET BY MOUTH DAILY 100 tablet 1 02/11/2024 Activeomeprazole 40 mg delayed release oral capsule (20 sources)Proton Pump InhibitorStart: 04-14-2024 End: 13-97-3164giyh 1 capsule by mouth once daily before mealtimeomeprazole (PriLOSEC) [address] capsule Indications: Gastroesophageal reflux disease without esophagitis TAKE 1 CAPSULE BY MOUTH EVERY MORNING BEFORE MEALS, DO NOT CRUSH OR CHEW 100 capsule 3 07/21/2024 Activeondansetron 4 mg oral tablet (11 sources)Serotonin-3 Receptor AntagonistStart: 01-17-2024 End: 43-86-9644nctw 1 tablet by mouth every six hours as needed for nausea and vomitingondansetron (Zofran) 4 MG tablet TAKE 1 TABLET BY MOUTH EVERY 6 HOURS NEEDED FOR NAUSEA AND VOMITING 01/17/2024 08/12/2024 Discontinued (Therapy completed)Ozempic, 1 MG/DOSE, 4 MG/3ML solution pen-injector (4 sources)Start: 10-09-2024 End: 55-46-5616Geoogqd, 1 MG/DOSE, 4 MG/3ML solution pen-injector 10/09/2024 04/07/2025 Discontinued (Therapy completed)Start: 80-36-8885Gqnlnvi, 1 MG/DOSE, 4 MG/3ML solution pen-injector 10/09/2024 Activepotassium chloride 10 meq extended release oral tablet (20 sources)potassium chloride CR (Klor-Con) 10 MEQ ER tablet every 12 (twelve) hours. Activerimegepant 75 mg disintegrating oral tablet (20 sources)Start: 72-62-2909zmdd 1 tablet by mouth every other dayRimegepant Sulfate (Nurtec) 75 MG tablet dispersible Indications: Migraine without aura and withoutstatus migrainosus, not intractable DISSOLVE 1 TABLET BY MOUTH EVERY OTHER DAY FOR PREVEBTATIVE 15 tablet 2 05/18/2025 ActiveStart: 12-29-2024 End: 32-62-8188wwog 1 tablet by mouth every other dayRimegepant [...] 30 tablet 11 10/23/2023 ActiveSemaglutide (1 source)Start: 08-22-6303hvynwj 1 mg by subcutaneous injection every week Semaglutide (Ozempic) 1 mg/dose (4 mg/3 mL) pen injector Active 1 MG SUBCUT every week February 12:00am1 mg dose 1.5 ml semaglutide 1.34 mg/ml pen injector (20 sources)Start: 11-05-2024 End: 45-73-3891xjmhav 1 mg by subcutaneous injection every weeksemaglutide (Ozempic, 1 MG/DOSE,) 2 MG/1.5ML solution pen-injector Indications: Type 2 diabetes mellitus without complication, without long-term current use of insulin (HCC) Inject 1 mg under the skin 1 (one) time per week 3 mL 5 11/05/2024 04/07/2025 Discontinued (Therapy completed)Start: 10-23-2023 End: 62-49-9913qtrxsq 1 mg by subcutaneous injection every weeksemaglutide (Ozempic, 1 MG/DOSE,) 2 MG/1.5ML solution pen-injector Indications: Type 2 diabetes mellitus without complication, without long-term current use of insulin (CMS/HCC) Inject 1 mg under theskin 1 (one) time per week 3 mL 5 04/28/2024 ActiveSemaglutide, 2 MG/DOSE, 8 MG/3ML solution pen-injector (5 sources)Start: 04-07-2025 End: 28-14-0735llcaea 2 mg by subcutaneous injection every weekSemaglutide, 2 MG/DOSE, 8 MG/3ML solution pen-injector Indications: Type 2 diabetes mellitus with diabetic nephropathy, without long-term current use of insulin (HCC) Inject 2 mg under the skin 1 (one) time per week 9 mL 04/07/2025 07/16/2025 Active traMADol hydrochloride 50 mg oral tablet (20 sources)Opioid AgonistStart: 12-35-6924jgzq 1 tablet by mouth four times daily as neededtraMADol (Ultram) 50 MG tablet Indications: Other chronic pain TAKE ONE TABLET BY MOUTH FOUR TIMES A DAY NEEDED 120 tablet 02/22/2023 Active valACYclovir 1000 mg oral tablet (3 sources)Herpesvirus Nucleoside Analog DNA Polymerase Inhibitor, Herpes Simplex Virus Nucleoside Analog DNA Polymerase Inhibitor, Herpes Zoster Virus Nucleoside Analog DNA Polymerase InhibitorStart: 09-11-2024 End: 20-09-8833uzxa 1 tablet by mouth in the morning, [...] anxious mood; Translations: [Adjustment disorder with anxiety]Onset: 432490-07-9121DwnjhgjNcrwhjj disorders (8 sources)Anxiety; Translations: [Anxiety disorder, unspecified]06-18-2024 ChronicAsthma (20 sources)Asthma; Translations: [Unspecified asthma, uncomplicated]Onset: 595695-25-1682ZhrlkhiMkiigzy kidney disease (20 sources)Chronic kidney disease stage 3A ; Translations: [Stage 3a chronic kidney disease (HCC)]Onset: 160743-63-3928FkxyehpBpsepaj obstructive pulmonary disease and bronchiectasis (20 sources)Emphysematous bronchitis; 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]Onset: 12-26-2022 Resolved: 408917-88-3782XvycbckLwyrekwdrvziu of surgical procedures or medical care (20 sources)Postsurgical menopause; Translations: [Asymptomatic postprocedural ovarian failure]Onset: 549496-23-1975AgyfgqfLlvhtoab mellitus with complications (20 sources)Renal disorder due to type 2 diabetes mellitus; Translations: [Type 2 diabetes mellitus with diabetic nephropathy]Onset: hronic Diabetes mellitus without complication (20 sources)Type 2 diabetes mellitus; Translations: [Type 2 diabetes mellitus without complications]Onset: 344420-74-5116IlhngptRzsvtsakk of lipid metabolism (20 sources)Hyperlipidemia; Translations: [Hyperlipidemia, unspecified]Onset: 100366-42-2910OxanqhfKmuaskvohd disorders (2 sources)Gastroesophageal reflux disease without esophagitis; Translations: [Gastro-esophageal reflux disease without esophagitis]53-45-8589TokccxwWcpmpkpqa hypertension (20 sources)Hypertensive disorder; Translations: [Essential (primary) hypertension]Onset: 646398-32-4361TjfxjavCnwuodpc; including migraine (20 sources)Migraine without aura, not refractory ; Translations: [Migraine without aura, not intractable, without status migrainosus]Onset: 12-26-2022 Resolved: 384878-71-4625AavanbnRmtceqtwanzty and screening for infectious disease (2 sources)Vaccination needed; Translations: [Encounter for immunization] 56-09-2746AclpbsqqTcdcaskokr disorders (20 sources)Menopausal flushing; Translations: [Menopausal and female climacteric states]Onset: 538928-07-9699GxkmbgfZrfc disorders (20 sources)Depressive disorder; Translations: [Depression]Onset: 12-26-2022 66-77-6289EenflomVexvi gastrointestinal disorders (20 sources)Irritable bowel syndrome with diarrhea; Translations: [Irritable bowel syndrome with diarrhea]Onset: 603108-88-0287ZdpgtpuCmwoe inflammatory condition of skin (20 sources)Psoriasis; Translations: [Psoriasis, unspecified]Onset: 12-26-2022 94-83-4101HfoefusUpcux nervous system disorders (1 source)Other chronic pain; Translations: [OTHER CHRONIC PAIN]Onset: 55-07-0949RhgmecpEttnf nervous system disorders (20 sources)Chronic pain; Translations: [Other chronic pain]Onset: 12-26-2022 59-36-3386XoiglkyDzqnt nervous system disorders (20 sources)Left-sided piriformis syndrome; Translations: [Lesion of sciatic nerve, left lower limb]Onset: 987953-43-9165OvfydnuPzifh nervous system disorders (20 sources)Sciatic nerve lesion; Translations: [Lesion of sciatic nerve, unspecified lower limb]Onset: 128794-67-2959TejrposQqwee nervous system disorders (2 sources)Tremor; Translations: [Tremor, unspecified]07-83-6555SyshpttsYhnmx nutritional; endocrine; and metabolic disorders (20 sources)Obesity caused by energy imbalance; Translations: [Morbid (severe) obesity due to excess calories]Onset: 736098-35-7537QqjnfckJbszo nutritional; endocrine; and metabolic disorders (1 source)Morbid obesity; Translations: [Morbid (severe) obesity due to excess calories]Onset: 119568-41-4412VzywgwrFtird screening for suspected conditions (not mental disorders or infectious disease) (2 sources)Patient encounter status; Translations: [Encounter for screening mammogram for malignant neoplasm of breast]80-38-0900SkkwjotvJuyhy upper respiratory disease (20 sources)Allergic rhinitis; Translations: [Allergic rhinitis, unspecified] Onset: 306274-73-4989SfgqrwyBebef upper respiratory disease (2 sources)Allergic rhinitis due to pollen; Translations: [Allergic rhinitis due to pollen]98-39-8629QukzutlMtgoq upper respiratory infections (2 sources)Pansinusitis; Translations: [Chronic pansinusitis]69-10-9680Fwyxvrc Peripheral and visceral atherosclerosis (2 sources)Atherosclerosis of aorta; Translations: [Atherosclerosis of aorta] 85-96-2913CsnqzqeGmpqoibhh and history of mental health and substance abuse codes (2 sources)Ex-smoker; Translations: [Personal history of nicotine dependence] 28-61-6309LajxgsfhPnwgsowjfdx; intervertebral disc disorders; other back problems (20 sources)Spondylosis without myelopathy or radiculopathy, lumbar region; Translations: [Sacroiliitis, not elsewhere classified]Onset: 68-29-7157Xvmkgty Spondylosis; intervertebral disc disorders; other back problems (13 sources)Lumbago with sciatica, left side; Translations: [Intervertebral disc disorders with radiculopathy, lumbar region]Onset: 143211-91-3432Bfgawqph Unclassified (1 source)CONTACT W/AND (SUSP) EXPOS COVID-19; Translations: [CONTACT W/AND (SUSP) EXPOS COVID-19]Onset: 15-74-3909Dwyvcytjbjkf (1 source)ACUTE COUGH; Translations: [ACUTE COUGH]Onset: 70-71-1096Hjalbjtlzfcf (3 sources)LOW BACK PAIN, UNSPECIFIED; Translations: [LOW BACK PAIN, UNSPECIFIED]Onset: 76-89-2087Zlcjojziwvrw (5 sources)Patient on antidepressant monitoring planOnset: 028442-12-6973 Unclassified (5 sources)Baseline PHQ-9Onset: 502039-89-7862Hrqrk infection (2 sources)Herpes zoster without complication; Translations: [Zoster without complications]67-19-8101Hafzbcrz Past or Other Problems Problem ClassificationProblemDateDocumented DateEpisodic/ChronicComa; stupor; and brain damage (20 sources)Daytime somnolence; Translations: [Somnolence]Onset: 12-26-2022 95-47-6825JuwxamyoZcpxgmzqyt associated with dizziness or vertigo (20 sources)Dizziness; Translations: [Dizziness and giddiness]Onset: 04-09-2023 68-06-6347SfmsifbzZkudxfvw mellitus without complication (20 sources)Prediabetes; Translations: [Prediabetes]Onset: 12-26-2022 Resolved: 197109-10-7584KzgswrneRjluy acquired deformities (20 sources)Leg length inequality; Translations: [Unequal limb length (acquired), unspecified site]Onset: 750267-86-8905TbheljzbIrode acquired deformities (3 sources)Unequal limb length (acquired), unspecified site; Translations: [Unequal leg length (acquired)]Onset: 464955-72-8655PeqyzsvuBkejj aftercare (1 source)Other roasterman (current) drug therapy; Translations: [OTH PRISON CURRENT DRUG THERAPY]Onset: 20-73-8402MzuexfejUbchm aftercare (20 sources)Long-term current use of inhaled steroid; Translations: [snf (current) use of inhaled steroids]Onset: 189714-06-2064CdbmhegqScblx circulatory disease (20 sources)Elevated blood-pressure reading without diagnosis of hypertension; Translations: [Elevated blood-pressure reading, without diagnosis of hypertension]Onset: 12-26-2022 Resolved: 353261-02-3518MpgzfrjtNeeip circulatory disease (20 sources)Elevated blood pressure; Translations: [Elevated blood-pressure reading, without diagnosis of hypertension]Onset: 12-26-2022 Resolved: 658288-79-7138VhkzoelfFqomy connective tissue disease (5 sources)Other muscle spasm; Translations: [OTHER MUSCLE SPASM]Onset: 15-63-2384YtiuwqepWfihg diseases of kidney and ureters (12 sources)Cyst of kidney; Translations: [Cyst of kidney, acquired]Onset: 817619-98-6380VttwsnmgLratc lower respiratory disease (1 source)Wheezing; Translations: [WHEEZING]Onset: 14-39-2490EjmenkyfMhdpc lower respiratory disease (20 sources)Lung field abnormal; Translations: [Other nonspecific abnormal finding of lung field]Onset: 873849-01-2386GcqkifzoAdxmv nutritional; endocrine; and metabolic disorders (20 sources)Obese class I; Translations: [Obesity (BMI 30.0-34.9)]Onset: 12-26-2022 Resolved: 017957-69-6265TifsqinObddk nutritional; endocrine; and metabolic disorders (20 sources)Body mass index 30+ - obesity; Translations: [Body mass index (BMI) 37.0-37.9, adult]Onset: 04-14-2024 Resolved: 199928-79-8430DibuuogFsmvemgt codes; unclassified (4 sources)Pain, unspecified; Translations: [PAIN UNSPECIFIED]Onset: 09-07-2022 EpisodicResidual codes; unclassified (1 source)Acquired absence of other specified parts of digestive tract; Translations: [ACQ ABSENCE OTH PART DIGESTV TRACT]Onset: 52-53-3176Ovblzeys Residual codes; unclassified (1 source)Acquired absence of both cervix and uterus; Translations: [ACQUIRED ABSENCE BOTH CERVIX AND UTERUS]Onset: 83-01-5034CkwsavoiQuxchhlp codes; unclassified (1 source)Acquired absence of ovaries, unilateral; Translations: [ACQUIRED ABSENCE OVARIES UNILATERAL]Onset: 05-87-1705JkqhtutfEvuulpuu codes; unclassified (20 sources)Flushing; Translations: [Flushing]Onset: 12-26-2022 Resolved: 721750-89-0088UqnfugfgOtxlrvbde-mrjpzbt disorders (20 sources)Nicotine dependence, cigarettes, uncomplicated; Translations: [Smoker]Onset: 05-17-2022 Resolved: 487492-80-0312GrvpivmUyfrlqplglzk (1 source)LOW BACK PAIN, UNSPECIFIED; Translations: [LOW BACK PAIN, UNSPECIFIED] Onset: 05-16-2022 Results Test NameValueInterpretationReference RangeFacilityXR LUMBAR SPINE MIN 4Von 96-20-3356[place]ktS[place] [id number] XRay Report Signed Patient: DHARA DALLAS MR#: [id number] : 1970 Acct:[id number] Age/Sex: 54 / F ADM Date: 04/23/25 Loc: RAD Attending Dr: Tyra Graves FUR TRIMMER Ordering Physician: Tyra Graves NP Date of Service: 04/23/25 Procedure(s): XR lumbar spine min 4V Accession Number(s): [id number] cc: SANDY YOUSSEF Anna NP [place] [id number] Patient Name: DHARA DALLAS MRN: [id number] date: 1970 Sex: F Assigned Patient Location: Current Patient Location: Accession/Order Number: [id number] Exam Date: 04/23/2025 08:55 Report Date: 04/23/2025 [...] Jr., D.O. 04/23/2025 9:48 AM Dictation Location: [place] [address] Electronically authenticated by: [id number] Y Date: 04/23/2025 09:48 Dictated By: Rafiq Rai M.D. Signed By: 04/23/2550 DD/ 7 TD/TT: Sulfur Chloride Operator:TBHRadiology, Radiologist, - 04/23/2025 [facility] [place] [id number] XRay Report Signed Patient: DHARA DALLAS MR#: [id number] : 1970 Acct:[id number] Age/Sex: 54 / F ADM Date: 04/23/25 Loc: RAD Attending Dr: Tyra Graves NP Ordering Physician: Tyra Graves NP Date of Service: 04/23/25 Procedure(s): XR lumbar spine min 4V Accession Number(s): [id number] cc: SANDY YOUSSEF ; Tyra Graves NP [facility] [place] [address] Patient Name: DHARA DALLAS MRN: [id number] date: 1970 Sex: F Assigned Patient Location: Current Patient Location: Accession/Order Number: [id number] Exam Date: 04/23/2025 08:55 Report Date: 04/23/2025 [...] Jr., D.O. 04/23/2025 9:48 AM Dictation Location: [place] [address] Electronically authenticated by: [id number] Y Date: 04/23/2025 09:48 Dictated By: Rafiq Rai M.D. Signed By: 04/23/25949 DD/ 7 TD/TT: Sulfur Chloride Operator: SAMREEN HealthcareRadiology Study observation (narrative)NOMS HealthcareXR LUMBAR SPINE MIN 4VOrdered By: Radiologist Radiology on 98-82-1768[facility] Work Phone: XR SACROILIAC JOINTon 19-08-1872[address] [address] XRay Report Signed Patient: DHARA DALLAS MR#: [id number] : 1970 Acct:[id number] Age/Sex: 54 / F ADM Date: 04/23/25 Loc: [facility] Attending Dr: Tyra Graves NP Ordering Physician: Tyra Graves NP Date of Service: 04/23/25 Procedure(s): XR sacroiliac joint ELIANE Accession Number(s): [id number] cc: SANDY YOUSSEF ; Tyra Graves NP [address] [id number] Patient Name: DHARA DALLAS MRN: [id number] date: 1970 Sex: F Assigned Patient Location: Current Patient Location: Accession/Order Number: [id number] Exam Date: 04/23/2025 08:55 Report Date: 04/23/2025 [...] Jr., D.O. 04/23/2025 9:47 AM Dictation Location: [place] [address] Electronically authenticated by: [id number] Y Date: 04/23/2025 09:47 Dictated By: Rafiq Rai M.D. Signed By: 04/23/2549 DD/ TD/TT: Sulfur Chloride Operator:TBHRadiology, Radiologist, - 04/23/[address] [address] XRay Report Signed Patient: DHARA DALLAS MR#: [id number] : 1970 Acct:[id number] Age/Sex: 54 / F ADM Date: 04/23/25 Loc: [facility] Attending Dr: Tyra Graves NP Ordering Physician: Tyra Graves NP Date of Service: 04/23/25 Procedure(s): XR sacroiliac joint ELIANE Accession Number(s): [id number] cc: SANDY YOUSSEF Anna NP [facility] [place] [id number] Patient Name: DHARA DALLAS MRN: [id number] date: 1970 Sex: F Assigned Patient Location: Current Patient Location: Accession/Order Number: [id number] Exam Date: 04/23/2025 08:55 Report Date: 04/23/2025 [...] Jr., D.O. 04/23/2025 9:47 AM Dictation Location: [place] [address] Electronically authenticated by: [id number] Y Date: 04/23/2025 09:47 Dictated By: Rafiq Rai M.D. Signed By: 04/23/2549 DD/ 6 TD/TT: Sulfur Chloride Operator: NOMCorine HealthcareRadiology Study observation (narrative)NOMS HealthcareXR SACROILIAC JOINTOrdered By: Radiologist Radiology on 97-91-7301TKMFCrittenton Behavioral Health Work Phone: Laboratory - Hematology and Cell countson 04-07-2025 HbA1c (Bld) [Mass fraction]5.5 %[facility] Behavioral HealthNo Panel Informationon 04-07-2025 Interpretation and review of laboratory resultsNoSSM Health St. Mary's HospitalALBUMIN, RANDOM URINE W/CREATININEon 40-73-4222OWYPLTV, URINE0.4 mg/dL NormalSee Note:Quest DiagnosticsComment on above:Result Comment: Reference Range: Reference Range Not establishedPerformed By: #### 6517 #### [facility] [address], [address] [place] [address] Traffic Counter: Christiano Escobar MDALBUMIN/CREATININE RATIO, RANDOM URINE9 mg/g [...] category.Performed By: #### 6517 #### [facility] [address], [address] [place] [address] Traffic Counter: Christiano Escobar MDCreatinine (U) [Mass/Vol]47 mg/lZDislpb52-721 Quest DiagnosticsComment on above:Performed By: #### 6517 #### [facility] [address], [address] [place] [address] Traffic Counter: Christiano Escobar MDMicroalbumin/Creatinine ratio panel (U)on 31-43-7249Pnsimpc DL <= 20 mg/L (U) [Mass/Vol]0.4 mg/dLSee Note:[facility] Oony Comment on above:Reference Range: Reference Range Not established Albumin/Creatinine (U) [Mass ratio]9NINFCrittenton Behavioral HealthComment on above: The ADA defines abnormalities in [...] category. Creatinine (U) [Mass/Vol]47 mg/dL20 - 275 mg/dLCrittenton Behavioral HealthPerselect specialty hospital - [facility]ie Organization Information Site ID: QPT Name: [employer] [facility] Address: [address] [place] [address], [address] [place] [id number] Director: Christiano Escobar MDMayo Clinic Health System– [facility]cad[facility] CHEST WO CONon 18-75-4964[place]wf[place] [address] [place] Scan Report Signed Patient: DHARA DALLAS MR#: [id number] : 1970 Acct:[id number] Age/Sex: 53 / F ADM Date: 04/18/24 Loc: CT Attending Dr: Melisa Blanc D.O. Ordering Physician: Melisa Blanc D.O. Date of Service: 04/18/24 Procedure(s): CT chest wo con Accession Number(s): [id number] cc: SANDY YOUSSEF [place] [id number] Patient Name: DHARA DALLAS MRN: [id number] date: 1970 Sex: F Assigned Patient Location: CT Current Patient Location: CT Accession/Order Number: [id number] Exam Date: 04/18/2024 07:40 Report Date: 04/21/2024 [...] Signed By: 04/21/24 1328 DD/ 1325 TD/TT: Sulfur Chloride Operator:AMINAHRadiology, Radiologist, - 04/21/2024 [place] [address] CT Scan Report Signed Patient: DHARA DALLAS MR#: [id number] : 1970 Acct:[id number] Age/Sex: 53 / F ADM Date: 04/18/24 Loc: CT Attending Dr: Melisa Blanc D.O. Ordering Physician: Melisa Blanc D.O. Date of Service: 04/18/24 Procedure(s): CT chest wo con Accession Number(s): [id number] cc: SANDY YOUSSEF [place] [id number] Patient Name: DHARA DALLAS MRN: [id number] date: 1970 Sex: F Assigned Patient Location: CT Current Patient Location: CT Accession/Order Number: [id number] Exam Date: 04/18/2024 07:40 Report Date: 04/21/2024 [...] Signed By: 04/21/24 1328 DD/ 1325 TD/TT: Sulfur Chloride Operator: SAMREEN HealthcareRadiology Study observation (narrative)NOM HealthcareCT CHEST WO CONOrdered By: Radiologist Radiology on 69-40-2723[facility] Work Phone: mm TOMOSYNTHESIS SCREENING BIon 05-15-8448Lkw[address] [address] Mammography Report Signed Patient: DHARA DALLAS MR#: [id number] : 1970 Acct:[id number] Age/Sex: 53 / F ADM Date: 04/18/24 Loc: MAMMO Attending Dr: SANDY YOUSSEF Ordering Physician: SANDY YOUSSEF Results: Date of Service: 04/18/24 Follow Up: Procedure(s): MM tomosynthesis screening BI Accession Number(s): [id number] cc: SANDY YOUSSEF Patient Name: DHARA ADLLAS MR#: [id number] : 1970 Exam Date: 04/18/2024 Ordering Doctor: DR SANDY YOUSSEF M.D. RADIOLOGY REPORT PROCEDURE: MM TOMOSYNTHESIS [...] lung cancer at age 78. LOCATION: [facility] BREAST COMPOSITION: There are scattered areas [...] PALPABLE LUMP SHOULD BE BIOPSIED. Dictated by: Melyssa Pitts MD on 04/18/2024 at 12:09 Approved by: Melyssa Pitts MD on 04/18/2024 at 12:10 Dictated By: Melyssa Pitts M.D. Signed By: 04/18/24 1211 DD/ 1210 TD/TT: Sulfur Chloride Operator:TBHRadiology, RadiologistMD - 04/18/2024 The [place] [id number] Mammography Report Signed Patient: DHARA DALLAS MR#: [id number] : 1970 Acct:[id number] Age/Sex: 53 / F ADM Date: 04/18/24 Loc: MAMMO Attending Dr: SANDY YOUSSEF Ordering Physician: SANDY YOUSSEF Results: Date of Service: 04/18/24 Follow Up: Procedure(s): MM tomosynthesis screening BI Accession Number(s): [id number] cc: SANDY YOUSSEF Patient Name: DHARA DALLAS MR#: [id number] : 1970 Exam Date: 04/18/2024 Ordering Doctor: DR SANDY YOUSSEF M.D. RADIOLOGY REPORT PROCEDURE: MM TOMOSYNTHESIS [...] lung cancer at age 78. LOCATION: [facility] BREAST COMPOSITION: There are scattered areas [...] PALPABLE LUMP SHOULD BE BIOPSIED. Dictated by: Melyssa Pitts MD on 04/18/2024 at 12:09 Approved by: Melyssa Pitts MD on 04/18/2024 at 12:10 Dictated By: Melyssa Pitts M.D. Signed By: 04/18/24 1211 DD/ 1210 TD/TT: Sulfur Chloride Operator: SAMREEN HealthcareRadiology Study observation (narrative)NOMS HealthcareMM TOMOSYNTHESIS SCREENING BIOrdered By: Radiologist Radiology on 70-33-5426PIONCrittenton Behavioral Health Work Phone: Laboratory - Hematology and Cell countson 04-14-2024 HbA1c (Bld) [Mass fraction]5.7 %[facility] Panel Informationon 04-14-2024 Interpretation and review of laboratory resultsNormalSelect Specialty Hospital - Winston-SalemCREATININEon 91-55-9059Yklkzqogpw [Mass/Vol]1.03 mg/dLCritically high 0.55-1.02St. Vincent HospitalComment on above:Performed By: #### CREA #### [facility] [address] [place] [address] [address] Radha WoodGFR-AF CROATIAN>60Normal>=60The Protestant HospitalComment on above:Performed By: #### CREA #### [facility] [address] [place] [address] [address] Radha WoodGFR-NON AF KFEFGGAQ69 mL/min/1.68g6Ytyavlzwjp low>=60The Protestant HospitalComment on above:Performed By: #### CREA #### [facility] [address] [place] [address] [address] Radha GalindoXR CHEST 2 Von 96-22-4552AO CHEST 2 VEXAM: XR CHEST 2 V HISTORY: Pneumonia COMPARISON: None. TECHNIQUE: PA and lateral views of the chest. FINDINGS: The cardiomediastinal silhouette is normal. Airspace disease of the lingula. There is no pneumothorax. No pleural effusion is noted. The osseous structures are intact. IMPRESSION: Airspace disease of the lingula. Electronically authenticated by: AURORA HERNANDEZ Date: 2022-12-27 11:35[facility] SystemMRI LSPINE WO CONon 82-68-4431IHR LSLOUDON WO CONEXAMINATION: MRI LSPINE WO CON HISTORY: [...] Electronically authenticated by: BRANDON CRUZ Date: 2022-12-15 12:14NoPremier HealthRESPIRATORY PANEL PLUSon 25-56-1307WtdmozajuoArr detectedNormal NOT DETECTEDThe Protestant HospitalComment on above:Performed By: #### RSPLUS ####[facility] [address] [place] [address]DrInna Joyce ParapertusisNot detectedNormalNOT DETECTEDThe [facility] Comment on above:Performed By: #### RSPLUS ####[facility] [address]pc[address] [place] [id number] Kiser. PertussisNot detected NormalNOT DETECTEDThe Protestant HospitalComment on above:Performed By: #### RSPLUS ####[facility] [address] [place] [address]Dr. Radha MateoChlamydia PneumoniaeNot detectedNormalNOT DETECTEDThe Protestant HospitalComment on above:Performed By: #### RSPLUS ####[facility] [address] [place], [place] [address]Dr. Judyricky Galindo Coronavirus 229ENot detectedNormalNOT DETECTEDThe Protestant HospitalComment on above:Performed By: #### RSPLUS ####[facility] [address]xkpdqup[address] [place], [place] [address]Dr. Radha ChangCoronavirus FEC0Ama detectedNormalNOT DETECTEDThe Protestant HospitalComment on above:Performed By: #### RSPLUS ####[facility] Yunw[address]lofk[address] [place], [place] [address]Dr. Radha ChangCoronavirus CY99Gwm detectedNormalNOT DETECTEDThe [facility] Comment on above:Performed By: #### RSPLUS ####[facility] Dedzferaef[address] [place], [place] [address]Dr. Radha ChangCoronavirus WN03Rbk detected NormalNOT DETECTEDThe [facility] HospitalComveterans affairs ann [facility] healthcare [facility] on above:Performed By: #### RSPLUS ####[facility] [address]wav[address]shwh[address] [place], [place] [address]Dr. Radha GalindoInfluenza A H1Not detectedNormalNOT DETECTEDThe Protestant HospitalComment on above:Performed By: #### RSPLUS ####[facility] Hbpeyvninn[address] [place], [place] [address]Dr. Radha GalindoInfluenza A H1 2009Not detectedNormalNOT DETECTEDThe Protestant HospitalComment on above: Performed By: #### RSPLUS ####[facility] Iplbefanpx[address] [place], [place] [address]Dr. Judylan MateoInfluenza A H3Not detectedNormalNOT DETECTEDThe Protestant HospitalComment on above:Performed By: #### RSPLUS ####[facility] Jboasuarim[address] [place], [place] [address]Dr. Radha ChangInfluenza BNot detectedNormalNOT DETECTEDThe Protestant HospitalComment on above:Performed By: #### RSPLUS ####[facility] Kqxdpzgamd[address] [place], [place] [address]Dr. Radha GalindoMetapneumovirusNot detectedNormal NOT DETECTEDThe Protestant HospitalComment on above:Performed By: #### RSPLUS ####[facility] [address]klqoqxu[address] [place] [address]Dr. Radha GalindoMycoplas. PneumoniaeNot detectedNormalNOT DETECTEDThe Protestant HospitalComment on above:Performed By: #### RSPLUS ####[facility] [address]ugwjf[address] [place], [place] [address]Dr. Radha GalindoParainfluenza 1Not detectedNormalNOT DETECTEDThe Protestant HospitalComment on above:Performed By: #### RSPLUS ####[facility] [address]liwrrvzxb[address] [place], [place] [address]Dr. Radha GalindoParainfluenza 2Not detectedNormalNOT DETECTEDThe Protestant HospitalComment on above:Performed By: #### RSPLUS ####[facility] Easfzgafin[address] [place], [place] [address]Dr. Radha Galindo Parainfluenza 3Not detectedNormalNOT DETECTEDThe Protestant HospitalComment on above:Performed By: #### RSPLUS ####[facility] Oymfhwjimx[address] [place], [place] [address]Dr. Radha GalindoParainfluenza 4Not detectedNormalNOT DETECTEDThe Protestant HospitalComment on above:Performed By: #### RSPLUS ####[facility] Nzptznvtiv[address] [place], [place] [address]Dr. Radha GalindoRhino/EnterovirusNot detectedNormalNOT DETECTEDThe [facility] Comment on above:Performed By: #### RSPLUS ####[facility] Esyfikzbko[address] [place], [place] [address]Dr. Radha Arzola Header 1RESPIRATORY PANEL: VIRUSESNormalThe Protestant HospitalComment on above:Performed By: #### RSPLUS ####[facility] Extwicdmth[address] [place], [place] [address]Dr. Yilan ChangRP2 Header 2RESPIRATORY PANEL: BACTERIATrinity Health SystemComveterans affairs ann arbor healthcare system on above:Performed By: #### RSPLUS ####[facility] [address]vesbab[address] [place] [address]Dr. Radha GalindoRSVNot detectedNormalNOT DETECTEDThe [facility] on above:Performed By: #### RSPLUS ####[facility] [address]vyqgmpr[address] [place] [address]Dr. Radha Buitrago-CoV-2 (COVID-19) RNA SUSAN+probe Ql (Unsp spec)Not detectedNormalNOT DETECTEDThe [facility] HospitalComveterans affairs [facility] system on above:Performed By: #### RSPLUS ####[facility] Hrnpociuaw[address] [place] [address]Dr. Radha GalindoXR CHEST 2 Von 60-06-7826OM CHEST 2 VEXAMINATION: XR CHEST 2 V [...] Electronically authenticated by: BRANDON CRUZ Date: 2022-09-07 12:18[facility] AUTO DIFFon 19-79-8574PNJH #0.1 103/ulNormal0.0-0.1The [facility] on above:Performed By: #### CBC ####[facility] Owyblwddhb[address] [place], [place] [address]Dr.Radha GalindoBasophils/100 WBC (Bld)0.6 %Normal0.2-2.0The [facility] on above:Performed By: #### CBC ####[facility] Xsabjeauqo26[address] [place], [place] [address]Dr.Radha ChangEO #0.2 103/ulNormal0.0-0.7The [facility] HospitalComment on above:Performed By: #### CBC ####[facility] Fpoaviijmb6056[address] [place], [place] [address]Dr.Radha ChangEosinophils/100 WBC (Bld)1.3 %Normal 0.9-7.0The [facility] HospitalComment on above:Performed By: #### CBC ####[facility] Tnscuvrpao[address] [place], [place] [address]Dr.Radha Galindo Erythrocyte distribution width (RBC) [Ratio]14.6 %Brbbls79.0-15.0The [facility] HospitalComment on above:Performed By: #### CBC ####[facility] Kdcsoyhpxo[address] [place], [place] [address]Dr.Radha ChangHematocrit (Bld) [Volume fraction]45.1 %Qpmsls65.0-48.0The [facility] HospitalComment on above:Performed By: #### CBC ####[facility] Wprvqxhbcy[address] [place], [place] [address]Dr.Radha ChangHemoglobin (Bld) [Mass/Vol]14.9 g/dL Jgfmau48.0-16.0The [facility] HospitalComment on above:Performed By: #### CBC ####[facility] Dciwdxkzsb[address] [place], [place] [address]Dr. Radha ChangIG #0.06 10e3/ulCritically high0.00-0.03The [facility] HospitalComment on above:Performed By: #### CBC ####[facility] Zzbabyqjjg46[address] [place], [place] [address]Dr.Radha ChangIG %0.4 %Normal0.0-0.5The [facility] HospitalComment on above:Performed By: #### CBC ####[facility] Hxtxxldlaf[address] [place], [place] [address]Dr.Radha ChangLYMPH #3.7 103/ulNormal1.2-3.8The [facility] HospitalComment on above:Performed By: #### CBC ####[facility] Arfkobdnqc3[address] [place], [place] [address]Dr. Yilan ChangLymphocytes/100 WBC (Bld)27.7 %Nsrvdx55.5-60.0[facility] Comment on above:Performed By: #### CBC ####[facility] J[address]xwzltec[address] [place] [address]Dr.Radha GalindoMANUAL DIFF REQNONormalThe Protestant HospitalComment on above:Performed By: #### CBC ####[facility] Naealcukpe[address] [place], [place] [address]Dr.Radha GalindoH (RBC) [Entitic mass]31.6 bdPmzoie43.7-34.0The [facility] HospitalComment on above: Performed By: #### CBC ####[facility] Pdvugmnjym[address] [place], [place] [address]Dr.Radha GalindoHC (RBC) [Mass/Vol]33.0 g/dLNormal 29.9-35.2The [facility] HospitalComment on above:Performed By: #### CBC ####[facility] Egnxcgcpes[address] [place], [place] [address]Dr. Radha GalindoV (RBC) [Entitic vol]95.6 vFUfsfzl47.0-99.0[facility] Comment on above:Performed By: #### CBC ####[facility] Crmkifjqvy[address] [place], [place] [address]Dr.Radha GalindoMONO #0.7 103/ulNormal0.3-0.8 The Protestant HospitalComment on above:Performed By: #### CBC ####[facility] Mqiaiwsrem86[address] [place], [place] [address]Dr.Radha Galindo Monocytes/100 WBC (Bld)5.3 %Normal1.7-12.0The [facility] HospitalComment on above: Performed By: #### CBC ####[facility] Lqvblatxhu[address] [place], [place] [address]DrInnaRadha GalindoNEUT #8.8 103/ulCritically high1.4-6.5 The [facility] HospitalComment on above:Performed By: #### CBC ####[facility] [address]aphlh[address] [place] [address]Dr.Radha Galindo Neutrophils/100 WBC (Bld)64.7 %Gnufwu69.0-75.0The [facility] HospitalComment on above:Performed By: #### CBC ####[facility] [address]qyfhldug[address] [place] [address]Dr.Radha GalindoPlatelet mean volume (Bld) [Entitic vol] 9.1 fLCritically low9.5-13.5The [facility] HospitalComment on above:Performed By: #### CBC ####[facility] Ltxnxhkbpn[address] [place] [address]Dr.Radha GalindoPLT318 103/jvXmkala803-741Xux Protestant HospitalComment on above:Performed By: #### CBC ####[facility] Myjzvhexft[address] [place], [place] [address]Dr.Radha GalindoRBC4.72 106/ulNormal4.20-5.40The Protestant HospitalComment on above:Performed By: #### CBC ####[facility] Cbiprwyzum[address] [place], [place] [address]Dr.Radha GalindoWBC13.5 103/ul Critically high4.0-11.0The Protestant HospitalComment on above:Performed By: #### CBC ####[facility] Oazrqdldxc[address] [place], [place] [address]Dr. Radha GalindoCRPon 28-20-8352ZPB5.3 mg/dLNormal<=1.0The [facility] HospitalComment on above:Performed By: #### BMP, CRP #### [facility] [address] [place] [address] Dr. Radha GalindoPROF CHEM 8 (BAS METB)on 27-66-0213Xmopg gap [Moles/Vol]13.7 mmol/LNormalThe Protestant HospitalComment on above:Performed By: #### BMP, CRP #### [facility] [address] [place] [address] Dr. Radha GalindoCalcium [Mass/Vol]9.5 mg/dLNormal8.5-10.1[facility] Comment on above:Performed By: #### BMP, CRP #### [facility] [address] [address] [address] Radha GalindoChloride [Moles/Vol]104 mmol/ZBpbadw00-096Teq [facility] Comment on above:Performed By: #### BMP, CRP #### [facility] [address] [address] [address] Radha GalindoCO2 [Moles/Vol]27.0 mmol/BFzttdu02.0-32.0[facility] Comment on above:Performed By: #### BMP, CRP #### [facility] [address] [address] [address] Radha GalindoCreatinine [Mass/Vol]1.01 mg/dLNormal0.55-1.02The [facility] HospitalComment on above:Performed By: #### BMP, CRP #### [facility] [address] [address] [address] Garcia ChangEGFR-AF CROATIAN>60Normal>=60The Protestant HospitalComment on above:Performed By: #### BMP, CRP #### [facility] [address] [address] [address] Radha WoodGFR-NON AF IVWUNUVP53 mL/min/1.36k0Iyliyeikkr low>=60The [facility] HospitalComment on above:Performed By: #### BMP, CRP #### [facility] [address] [address] [address] Radha GalindoGlucose [Mass/Vol]137 mg/dLCritically dawu33-803Uhn Protestant HospitalComment on above:Performed By: #### BMP, CRP #### [facility] [address] [address] [address] Radha GalindoPotassium [Moles/Vol]3.7 mmol/LNormal3.5-5.1[facility] Comment on above:Performed By: #### BMP, CRP #### [facility] [address] [address] [address] Radha GalindoSodium [Moles/Vol]141 mmol/OWgcqwj030-791Zea [facility] Comment on above:Performed By: #### BMP, CRP #### [facility] [address] [address] [address] Radha Lim nitrogen [Mass/Vol]11.0 mg/dLNormal7.0-18.0The [facility] HospitalComment on above:Performed By: #### BMP, CRP #### [facility] [address] [address] [address] Radha Lim nitrogen/Creatinine [Mass ratio]10.9 mg/mgNormalThe Protestant HospitalComment on above:Performed By: #### BMP, CRP #### [facility] [address] [address] [address] Radha Soliz RATE WESTERGRENon 10-69-5544LIA RATE18 mm/hrNormal<=30The Protestant HospitalComment on above:Performed By: #### SEDR ####[facility] [address] [place] [address]Dr. Radha Dickersonvid-19 PCR (CVDTBH)on 85-58-9461HKKY-CoV-2 (COVID-19) RNA SUSAN+probe Ql (Unsp spec)Not detectedNormalNOT DETECTEDThe Protestant HospitalComveterans affairs [facility] on above:Result Comment: This test is not yet approved or cleared by the [place] FDA. When there are no FDA-approved or cleared tests available, and other criteria are met, FDA can make tests available under an emergency access mechanism called an Emergency Use Authorization (EUA). The EUA for this test is supported by the [place] of Health and Human Service's (HHS's) declaration [...] consistent with SARS-CoV-2.Performed By: #### CVDTBH #### [facility] [address] [place] [address] [address] [address] Radha Chadwickd-19 PCR ([facility])on 01-02-9723GGER-CoV-2 (COVID-19) RNA SUSAN+probe Ql (Unsp spec)Not detectedNormalNOT DETECTEDThe [facility] Comment on above:Result Comment: This test is not yet approved or cleared by the [place] FDA. When there are no FDA-approved or cleared tests available, and other criteria are met, FDA can make tests available under an emergency access mechanism called an Emergency Use Authorization (EUA). The EUA for this test is supported by the Senior Business Development Analyst of Health and Human Service's (HHS's) declaration [...] consistent with SARS-CoV-2.Performed By: #### CVDTBH #### [facility] [address] [place] [address] [address] [address] Radha Hammeralbumin (with Creat)on 61-63-4717xVIM<1.2LowNorthern Baker Medical SpecialistComment on above:Result Comment: Unable to calculate mALB/Crea ratio, mALB is <1.2 mg/dL mALB reference range not established.Performed By: #### mALBC #### [facility] [address] [place], [place] [id number] mg/lOOeorgx95-004Wruzsibs Baker Security Analyst Comment on above:Performed By: #### mALBC #### [facility] [address] [place], [place] [address]Dqidvcfg Blood Count with Auto Diffon 42-88-3949Zodvszbru (Bld) [#/Vol]0.07 10*3/uLNormal0.00-0.20[facility] SpecialistComment on above:Performed By: #### CMP, CBCAD, VITD, LIPD #### [facility] [address] [place], [place] [address]Axeekonrt/100 WBC (Bld)0.6 %[facility] SpecialistComment on above:Performed By: #### CMP, CBCAD, VITD, LIPD #### [facility] [address] [place], [place] [address]Omnvtygsgrj (Bld) [#/Vol]0.17 10*3/uLNormal0.02-0.50[facility] SpecialistComment on above:Performed By: #### CMP, CBCAD, VITD, LIPD #### [facility] [address] [place], [place] [address]Agwkwsdcmkd/100 WBC (Bld)1.4 %[facility] SpecialistComment on above:Performed By: #### CMP, CBCAD, VITD, LIPD #### [facility] [address], [place] [id number] distribution width (RBC) [Ratio]14.1 %Normal 11.0-15.0[facility] SpecialistComment on above:Performed By: #### CMP, CBCAD, VITD, LIPD #### [facility] [address], [place] [id number] (Bld) [Volume fraction]46.1 %Eheyek22.0-47.0 [facility] SpecialistComment on above:Performed By: #### CMP, CBCAD, VITD, LIPD #### [facility] [address], [place] [id number] (Bld) [Mass/Vol]15.6 g/nXBjtv33.6-15.5[facility] SpecialistComment on above:Performed By: #### CMP, CBCAD, VITD, LIPD #### [facility] [address], [place] [id number] (Bld) [#/Vol]3.0 10*3/uLNormal0.9-3.9No[facility] SpecialistComment on above:Performed By: #### CMP, CBCAD, VITD, LIPD #### [facility] [address], [place] [id number]/100 WBC (Bld)25.9 %NormalNoBluffton Hospital SpecialistComment on above:Performed By: #### CMP, CBCAD, VITD, LIPD #### [facility] [address], [place] [id number] (RBC) [Entitic mass]31.0 jbEkceyb22.0-33.0NoBl[facility] SpecialistComment on above:Performed By: #### CMP, CBCAD, VITD, LIPD #### [facility] [address], [place] [id number] (RBC) [Mass/Vol]33.8 g/gFXltpfm20.0-36.0NoBl[facility] SpecialistComment on above:Performed By: #### CMP, CBCAD, VITD, LIPD #### [facility] [address], [place] [id number] (RBC) [Entitic vol]92 zKDopodx44-493Fozzmvqa [facility] SpecialistComment on above:Performed By: #### CMP, CBCAD, VITD, LIPD #### [facility] [address], [place] [id number] (Bld) [#/Vol]0.8 10*3/uLNormal0.2-0.9No[facility] SpecialistComment on above:Performed By: #### CMP, CBCAD, VITD, LIPD #### [facility] [address], [place] [id number]/100 WBC (Bld)6.8 %NormalAultman [facility] SpecialistComment on above:Performed By: #### CMP, CBCAD, VITD, LIPD #### [facility] [address], [place] [id number] (Bld) [#/Vol]7.6 10*3/uLNormal1.5-7.8[facility] SpecialistComment on above:Performed By: #### CMP, CBCAD, VITD, LIPD #### [facility] [address], [place] [id number]/100 WBC (Bld)64.4 %NormalNortPomerene Hospital SpecialistComment on above:Performed By: #### CMP, CBCAD, VITD, LIPD #### [facility] [address], [place] [id number] mean volume (Bld) [Entitic vol]9.50 fLNormal 7.50-12.50[facility] SpecialistComment on above:Performed By: #### CMP, CBCAD, VITD, LIPD #### [facility] [address], [place] [id number] (Bld) [#/Vol]304 10*3/hFYbpdux798-715Cdyayejf [facility] SpecialistComment on above:Performed By: #### CMP, CBCAD, VITD, LIPD #### [facility] [address], [place] [id number] (Bld) [#/Vol]5.03 10*6/uLNormal3.90-5.20[facility] SpecialistComment on above:Performed By: #### CMP, CBCAD, VITD, LIPD #### [facility] [address], [place] [id number]-BN35.6 xEUbalfn66.0-50.0No[facility] Specialist Comment on above:Performed By: #### CMP, CBCAD, VITD, LIPD #### [facility] [address], [place] [id number] (Bld) [#/Vol]11.8 10*3/uLHigh3.8-11.0No[facility] SpecialistComment on above:Performed By: #### CMP, CBCAD, VITD, LIPD #### [facility] [address], [place] [id number] Metabolic Panelon 44-45-0799Hhfkevq [Mass/Vol] 4.9 g/dLNormal3.6-5.1[facility] SpecialistComment on above:Performed By: #### CMP, CBCAD, VITD, LIPD #### [facility] [address], [place] [id number]/Globulin [Mass ratio]2.3 {ratio}Normal1.0-2.5No[facility] SpecialistComment on above:Performed By: #### CMP, CBCAD, VITD, LIPD #### [facility] [address], [place] [id number] [Catalytic activity/Vol]82 U/JUlkkny83-042Sieojpnv [facility] SpecialistComment on above:Performed By: #### CMP, CBCAD, VITD, LIPD #### [facility] [address], [place] [id number] [Catalytic activity/Vol]44 U/LHigh6-33No[facility] SpecialistComment on above:Result Comment: 06/29/2021 Female reference range changed.Performed By: #### CMP, CBCAD, VITD, LIPD #### [facility] [address], [place] [id number] gap [Moles/Vol]17 mmol/CYomqow93-95Dpnymiex [facility] SpecialistComment on above:Result Comment: Effective 08/04/2019 reference range changed.Performed By: #### CMP, CBCAD, VITD, LIPD #### [facility] [address], [place] [id number] [Catalytic activity/Vol]27 U/LNormal9-34No[facility] SpecialistComment on above:Performed By: #### CMP, CBCAD, VITD, LIPD #### [facility] [address], [place] [id number] [Mass/Vol]0.97 mg/dLNormal0.30-1.20[facility]n [facility] SpecialistComment on above:Performed By: #### CMP, CBCAD, VITD, LIPD #### [facility] [address], [place] [id number]/CREA14 RatioNormal6-22[facility] Security Analyst Comment on above:Performed By: #### CMP, CBCAD, VITD, LIPD #### [facility] [address], [place] [id number] [Mass/Vol]10.3 mg/dLHigh8.6-10.2[facility] SpecialistComment on above:Performed By: #### CMP, CBCAD, VITD, LIPD #### [facility] [address], [place] [id number] [Moles/Vol]101 mmol/YXaoiox73-516Kypkeqkk [facility] SpecialistComment on above:Performed By: #### CMP, CBCAD, VITD, LIPD #### [facility] [address], [place] [id number] [Moles/Vol]25 mmol/MAlbmox21-94Dofeugkp [facility] SpecialistComment on above:Performed By: #### CMP, CBCAD, VITD, LIPD #### [facility] [address], [place] [id number] [Mass/Vol]1.0 mg/dLNormal0.6-1.4[facility]co[facility] hospitaln [facility] SpecialistComment on above:Performed By: #### CMP, CBCAD, VITD, LIPD #### [facility] [address], [place] [id number] mL/min/1.47h5Kkwitd>60[facility]co[facility]n [facility] SpecialistComment on above:Performed By: #### CMP, CBCAD, VITD, LIPD #### [facility] [address], [place] [id number] mL/min/1.48s3[place]>60[facility]co[facility] hospitaln [facility] SpecialistComment on above:Performed By: #### CMP, CBCAD, VITD, LIPD #### [facility] [address], [place] [id number] (S) [Mass/Vol]2.1 g/dLNormal1.9-3.7[facility] SpecialistComment on above:Performed By: #### CMP, CBCAD, VITD, LIPD #### [facility] [address], [place] [id number] [Mass/Vol]120 mg/vZCeyj08-16Ijojcmvd [facility] SpecialistComment on above:Result Comment: For FASTING Glucose --- ADA reference ranges: Normal 65-99 mg/dl Prediabetes 100-125 Diabetes >/= 126Performed By: #### CMP, CBCAD, VITD, LIPD #### [facility] [address], [place] [id number] [Moles/Vol]4.4 mmol/LNormal3.5-5.5No[facility] SpecialistComment on above:Performed By: #### CMP, CBCAD, VITD, LIPD #### [facility] [address], [place] [id number] [Mass/Vol]7.0 g/dLNormal6.1-8.1[facility] SpecialistComment on above:Performed By: #### CMP, CBCAD, VITD, LIPD #### [facility] [address], [place] [id number] [Moles/Vol]139 mmol/YKcrrxy494-975Gplytpov [facility] SpecialistComment on above:Performed By: #### CMP, CBCAD, VITD, LIPD #### [facility] [address], [place] [id number] nitrogen [Mass/Vol]13 mg/dLNormal7-25No[facility] SpecialistComment on above:Performed By: #### CMP, CBCAD, VITD, LIPD #### [facility] [address], [place] [id number] A1Con 58-58-5438MXB250.24NormalNortPomerene Hospital SpecialistComment on above:Performed By: #### A1C #### [facility] [address], [place] [id number] (Bld) [Mass fraction]6.2 %High4.0-6.0[facility]co[facility] hospitaln [facility] SpecialistComment on above:Performed By: #### A1C #### [facility] [address], [place] [id number] Panelon 97-90-0409Qlkvcicqdbi [Mass/Vol]243 mg/dLHigh 125-200[facility] SpecialistComment on above:Result Comment: Low risk < 200mg/dL Borderline risk 201-239 mg/dl High risk > or equal to 240Performed By: #### CMP, CBCAD, VITD, LIPD #### [facility] [address], [place] [id number] in HDL [Mass/Vol]58 mg/dLNormal>40Nortco[facility] hospitaln [facility] SpecialistComment on above:Result Comment: High Cardiovascular Risk HDL <40 mg/dL Low Cardiovascular Risk HDL > or equal to 60 mg/dlPerformed By: #### CMP, CBCAD, VITD, LIPD #### [facility] [address], [place] [id number] in LDL [Mass/Vol]154 mg/dLNormalNortPomerene Hospital SpecialistComment on above:Result Comment: LDL ATP III CLASSIFICATION LDL less than 100 mg/dl Optimal LDL 100-129 mg/dl Near or above optimal LDL 130-159 Borderline high LDL 160-189 High LDL greater than 189 mg/dl Very HighPerformed By: #### CMP, CBCAD, VITD, LIPD #### [facility] [address], [place] [id number] in VLDL [Mass/Vol]31 mg/dLNormalNoBluffton Hospital SpecialistComment on above:Performed By: #### CMP, CBCAD, VITD, LIPD #### [facility] [address], [place] [id number].total/Cholesterol in HDL [Mass ratio]4 {ratio} NormalNortcopper springs east hospitaln [facility] SpecialistComment on above:Performed By: #### CMP, CBCAD, VITD, LIPD #### [facility] [address], [place] [id number] [Mass/Vol]154 mg/bOCqvg84-546Cxaefpjn [facility] SpecialistComment on above:Result Comment: TRIG ATPIII CLASSIFICATIONS TRIG less than 150 mg/dl Normal TRIG 150-199 mg/dl Borderline High TRIG 200-500 mg/dl High TRIG greather than 500 mg/dl Very HighPerformed By: #### CMP, CBCAD, VITD, LIPD #### [facility] [address], [place] [id number] D 25-OHon 42-99-3910KJE D 25 OH73 ng/mlNormal>29 [facility] SpecialistComment on above:Result Comment: Vitamin D Status Deficiency <20 ng/mL Insufficiency 20-29 ng/mL Optimal 30-100 ng/mL Possible Toxicity >=150 ng/mLPerformed By: #### CMP, CBCAD, VITD, LIPD #### [facility] [address], [place] [id number] 59-39-0416CBYDYmxxnblzh (ORQ) DHARA DALLAS ([id number]) 1970 F Date Time Provider Department 03/08/21 ANINA OLIVA ORQ During your visit today, we recorded the following information about you: Francisco J Ahuja [facility] 03/08/2021 4:45 PM Signed Patient called requesting a refill for Diclofenac Sod ER 100 mg tab. To send to [facility] at [phone] fax [phone] Francisco J Ahuja [facility] 03/17/2021 1:01 PM Signed Spoke to patient, she stated that got theOral Voltaren Oral Voltaren from her family doctor. 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: Negative for abnormal vaginal bleeding, abnormal vaginal [...] has degenerative di (more content not included)...[facility]IC[facility]ORT -NBNRon 69-10-6630IF OUTSIDE DICOM IMPORT -NBNRImages [facility] [id number] HospitalXR OUTSIDE CD DICOM IMPORT -NBNRImages were obtained outside of [facility] [id number] Hospital Vital Signs Date TimeVital SignValuePerforming IrytpayntAzfwmmzm21-89-4928 09:27-0400Body aydumj532.1 cmRjoo Youssef MD Work Phone: [facility] HealthOyjzhitjrs52-45-3919 09:27-0400Body mass index (BMI) [Ratio]36.11 kg/u3KnohtSandy Youssef MD Work Phone: [phone] HealthEyjfmyzavy31-42-2529 09:27-0400Body dvawla07.43 kgSandy Youssef MD Work Phone: [phone] HealthCvkmadgrgv58-43-1432 09:27-0400Diastolic blood lfuddfgu84 mm[Hg]Sandy Youssef MD Work Phone: [phone] HealthGrwdujzbyw43-36-8263 09:27-0400Heart rate90 /min Sandy Youssef MD Work Phone: [phone] HealthPlfoejocsc82-96-8968 09:27-5409YlE6% (BldA) [Mass fraction]96 %Sandy Youssef MD Work Phone: [phone] HealthVqvyndoolb81-24-6200 09:27-0400Systolic blood flietacw104 mm[Hg]Sandy Youssef MD Work Phone: [phone] HealthXufdniqkad47-15-8137 09:28-0500Body ajxmzn560.1 cmJanel GOLDMAN Work Phone: [phone] HealthBritrbjngj94-42-8902 09:28-0500Body mass index (BMI) [Ratio]34.71 kg/d0OutjuJanel GOLDMAN Work Phone: [phone] HealthTolphblhod84-83-5150 09:28-0500Body .62 kgJanel GOLDMAN Work Phone: [phone] HealthTjukqfyqfj54-38-1942 09:28-0500Diastolic blood mm[Hg]Janel GOLDMAN Work Phone: [phone] HealthHuptseegul50-99-1090 09:28-0500Heart rate82 /min Janel Hemmer PA Work Phone: NOCarondelet HealthRwpolfmpfc56-67-2441 09:28-0500Respiratory rate16 /minJanel Hemmer PA Work Phone: NOCarondelet HealthCpbqzqhgsj63-55-1737 09:28-5724DiD0% (BldA) [Mass fraction]95 %Janel Hemmer PA Work Phone: NOCarondelet HealthFsuuronpbx38-89-6956 09:28-0500Systolic blood zibrngsz987 mm[Hg]Janel Evansmer PA Work Phone: NOCarondelet HealthDqhjbyklab84-59-7335 08:33-0500Body ofpesl374.1 Thu Oconnell FUR TRIMMER Work Phone: NOCarondelet HealthDkxypbrsky97-14-7070 08:33-0500Body mass index (BMI) [Ratio]33.48 kg/b1PezqbnMadison Oconnell FUR TRIMMER Work Phone: [phone] HealthQabdxiotsz91-16-5795 08:33-0500Body hrxmju51.26 kgMadison Oconnell FUR TRIMMER Work Phone: NOCarondelet HealthVufhoeqxpn86-19-0430 08:33-0500Diastolic blood wawixyln97 mm[Hg]Madison Oconnell FUR TRIMMER Work Phone: NOCarondelet HealthLlskmogonl37-64-2933 08:33-0500Heart auii883 /min Madison Oconnell FUR TRIMMER Work Phone: NOCarondelet HealthIqkxwbcyrf30-68-9658 08:33-0500Respiratory rate18 /minSchrissy Oconnell FUR TRIMMER Work Phone: NOCarondelet HealthEcrawionvh69-91-9452 08:33-4866ZcM7% (BldA) [Mass fraction]98 %Madison Oconnell FUR TRIMMER Work Phone: NOCaron[facility]let HealthQaunsumjdg17-27-0571 08:33-0500Systolic blood hwjfuvpy242 mm[Hg]Madison Oconnell FUR TRIMMER Work Phone: NOCarondelet HealthQbgbxdlhqr66-21-0957 08:30-0400Body ahakqn011.1 cmKaren Hemmer PA Work Phone: NOCaron[facility]let HealthNnawedztsm71-95-0239 08:30-0400Body mass index (BMI) [Ratio]34.91 kg/l0Pabgy Hemmer PA Work Phone: NOCarondelet HealthRavuztjaer90-38-4680 08:30-0400Body .17 kgBenitoen Hemmer PA Work Phone: NOCarondelet HealthDztpxwpjwq32-15-2727 08:30-0400Diastolic blood tjadnhtv51 mm[Hg]Janel Hemmer PA Work Phone: NOCarondelet HealthQhzzrehiue12-26-5796 08:30-0400Heart rate99 /min Janel Hemmer PA Work Phone: NOCaron[facility]let HealthXygnnuuqrj05-98-5951 08:30-0400Respiratory rate16 /minBenitoen Hemmer PA Work Phone: NOCarondelet HealthGktnezmefp08-96-5953 08:30-6069HiC4% (BldA) [Mass fraction]93 %Janel Hemmer PA Work Phone: NOCarondelet HealthOgjvvvxipy77-18-2684 08:30-0400Systolic blood tazgtgvm418 mm[Hg]Janel Hemmer PA Work Phone: NOCarondelet HealthIsmabozwbq61-26-5061 13:06-0400Body fdmcru881.1 Zoya Youssef MD Work Phone: NOCarondelet HealthWxtzsgdrew99-66-7596 13:06-0400Body mass index (BMI) [Ratio]35.11 kg/a6AfxtkSandy Youssef MD Work Phone: NOCarondelet HealthJulxhwtqyt46-74-3455 13:06-0400Body dugskm04.71 kgSandy Youssef MD Work Phone: [place] [address]Nficjbkpaf97-59-4830 13:06-0400Diastolic blood pblaxpqz01 mm[Hg]Sandy Youssef MD Work Phone: [place] [address]Pwxspjylhk15-80-0084 13:06-0400Heart rate84 /min Sandy Youssef MD Work Phone: [facility] HealthZmqngsizop04-88-9910 13:06-0645XrH6% (BldA) [Mass fraction]93 %Sandy Youssef MD Work Phone: [facility] HealthSveftorvar45-03-8117 13:06-0400Systolic blood rudtahxn543 mm[Hg]Sandy Youssef MD Work Phone: [facility] HealthZwoizurvyj77-16-7482 09:24-0400Body haxlfi950.1 cmT[facility]08-24-2024 09:24-0400Body mass index (BMI) [Ratio]35.2 kg/b5KsfzxnwowTuscarawas Hospital08-24-2024 09:24-0400Body hugljolubyo78 [degF][facility]08-24-2024 09:24-0400Body .17 kgTuscarawas Hospital08-24-2024 09:24-0400Diastolic blood mm[Hg][facility]08-24-2024 09:24-0400 Heart rate74 /[facility]08-24-2024 09:24-0400 Respiratory rate18 /[facility]08-24-2024 09:24-0400 SaO2% (BldA) [Mass fraction]94 %[facility]08-24-2024 09:24-0400Systolic blood asvpfmec583 mm[Hg][facility] Encounters Encounter DateEncounter TypeCare ProviderFacilityStart: 05-18-2025 End: 42-86-0127JhuyfbSlznq M Alda MD Work Phone: [facility] MedinceComment on above:Tremors of nervous system; Anxiety; Migraine without aura and without status migrainosus, not intractableStart: 05-11-2025 End: 13-71-5115stmgrmcuzmTshzbdg Vytautas Giedraitis MDFacility:VIKI Schultz Start: 04-23-2025 End: 14-78-0275Gnxcahvkt Result EncounterGeneric External Data ProviderNOMS External Department UnsolicitedStart: 04-23-2025 End: 16-23-2040Mkzzzhhnp Result EncounterGeneric External Data ProviderNOMS External Department UnsolicitedStart: 04-07-2025 End: 79-42-2377Elkvoo outpatient visit 25 minutesSandy Youssef MD Work Phone: [facility] CampuseComment on above:Spinal stenosis of lumbar region, unspecified whether neurogenic claudication present (Primary Dx); Type 2 diabetes mellitus with diabetic nephropathy, without long-term current use of insulin (HCC); Major depressive disorder, single episode, mild ; Essential hypertensionStart: 04-07-2025 End: 48-49-8707dpdgjjtaexDFNCV M ALDANot AvailableStart: 03-15-2025 End: 68-59-2516CqtcysZwfzs M Alda MD Work Phone: [facility] RockdalenceComment on above:Anxiety Start: 11-23-2024 End: 77-44-3359LhodpaWjkdi M Alda MD Work Phone: [facility] CI FMComment on above:Tremors of nervous system; AnxietyStart: 10-13-2024 End: 05-52-3539kumhkeutmaQNXNU M ALDANot AvailableStart: 09-11-2024 End: 16-55-4326Czabss Kayy GOLDMAN Work Phone: [facility] CI FMStart: 09-11-2024 End: 97-60-6748Flkteg Kayy GOLDMAN Work Phone: [facility] CI FMStart: 09-11-2024 End: 79-53-2074Fjvxblwc Result EncounterJanel GOLDMAN Work Phone: [facility] External Department UnsolicitedStart: 09-11-2024 End: 85-95-5704Zkasse outpatient visit 15 minutesJanel GOLDMAN Work Phone: [facility] CI FMComment on above:Herpes zoster without complication (Primary Dx); Former smoker; Diabetic nephropathy associated with type 2 diabetes mellitus (HCC) ([facility]/HCC) Start: 09-11-2024 End: 39-73-1788urkekmesljDETJAHuyen Montaño AvailableStart: 08-12-2024 End: 67-21-1910Ezjvdk Nadya Oconnell FUR TRIMMER Work Phone: [facility] CI FMStart: 08-12-2024 End: 58-57-1323Lnrzxu Nadya Oconnell FUR TRIMMER Work Phone: [facility] CI FMStart: 08-12-2024 End: 96-63-8165Dhhqrj outpatient visit 25 minutesShbianca Oconnell FUR TRIMMER Work Phone: [phone] CI FMComment on above:Pansinusitis, unspecified chronicity (Primary Dx); Type 2 diabetes mellitus with other specified complication (CMS/HCC); Type 2 diabetes mellitus without complications (CMS/HCC); 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); Morbid (severe) obesity due to excess calories (CMS/HCC); Chronic obstructive pulmonary disease, unspecified (CMS/HCC); Other specified chronic obstructive pulmonary disease (CMS/HCC)Start: 08-12-2024 End: 70-46-5743araaavqoshLIJUJT M SHIVELYNot AvailableStart: 08-11-2024 End: 00-74-0705PmjvhqDtkoe M Alda MD Work Phone: [facility] CI FMComment on above:AnxietyStart: 07-14-2024 End: 88-90-3195VjbxkiYgrveu Rikki AFRICASHE CI FMComment on above:AnxietyStart: 06-18-2024 End: 97-02-5596UmawujOduiq M Alda MD Work Phone: [facility] CI FMComment on above:AnxietyStart: 04-28-2024 End: 48-49-3788Egtmcn flowsGill GOLDMAN Work Phone: [facility] CI FMStart: 04-28-2024 End: 86-47-9098Vzulwn Kayy Crowder PA Work Phone: [facility] CI FMStart: 04-28-2024 End: 43-45-3994Wmufmqn encounter statusJanel GOLDMAN Work Phone: [facility] Work Phone: Start: 04-28-2024 End: 90-69-9513Hycnrpul preventive med est patient 40-64yrsKara GOLDMAN Work Phone: noms FMComment on above:Wellness examination (Primary Dx); Daytime [...] Hot flashes due to menopause; Hypertriglyceridemia (CMS/HCC); 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; Migraine without aura and without status migrainosus, not intractable (CMS/HCC); Piriformis syndrome of left side; Psoriasis (CMS/HCC); Pure hypercholesterolemia (CMS/HCC); Smoker; Surgical menopause; Need for vaccinationStart: 04-28-2024 End: 66-39-3785ymrhlydkzoXLHXF M HEMMERNot AvailableStart: 04-21-2024 End: 27-50-0304Giqbuhvmg Result EncounterGeneric External Data ProviderNOMS External Department UnsolicitedStart: 04-21-2024 End: 48-98-8272Hkaoggepl Result EncounterGeneric External Data ProviderNOMS External Department UnsolicitedStart: 04-18-2024 End: 41-60-3755Ifjopvgod Result Desi Youssef MD Work Phone: noms External Department UnsolicitedStart: 04-18-2024 End: 50-94-0068Uvcbfvkdx Result EncounterSandy Youssef MD Work Phone: [facility] External Department UnsolicitedStart: 04-14-2024 End: 83-05-6567Dlokrs flowsheetSandy Youssef MD Work Phone: [facility] CI FMStart: 04-14-2024 End: 93-50-6480Xxpmzp flowsWin Youssef MD Work Phone: [facility] CI FMStart: 04-14-2024 End: 53-77-3803Vognwi outpatient visit 25 minutesSandy Youssef MD Work Phone: NOXU CI FMComment on above:Diabetic nephropathy associated with [...] Gastroesophageal reflux disease without esophagitisStart: 04-14-2024 End: 75-82-0777xerogmuzqoSUKXY M ALDANot AvailableStart: 03-22-2024 End: 86-80-5899bqsxcghhgkUzdvlnoeyMercy Health [facility] Work Phone: Start: 03-22-2024 End: 38-26-2900Ecjnycv encounter [facility] Work Phone: Start: 76-07-1660nvieioftkgSM RUGEN ALDAFacility:H1 Start: 12-15-2022 End: 45-80-3320cdzgiillriHANOAQF HALKER .Facility:U9Akaar: 12-08-2022 End: 91-83-5328hpdvvkpwtnZMHVIWKTLHSO LAKSHMIPATHY .Facility:R1Vkskc: 09-07-2022 End: 49-11-6221utydcjozdeUJ RUGEN ALDAFacility:I1Rhbhg: 09-07-2022 End: 10-11-2283bziiuogurfCT AMELIA S AWTTS .Facility:S3Iwgdh: 06-01-2022 End: 55-55-3065ohtvrgqpytMSEM MCGILL .Facility:N6Mtgnf: 05-16-2022 End: 04-77-4849cfioguduiwCXHFC PARKERFacility:C2Urzet: 04-06-2022 End: 22-27-2639cugvkzrqxrGUMO MCGILL .Facility:Z7Mlacc: 42-49-0277Rskdpfmfe for preprocedural laboratory examinationDR AMELIA S WATTS .[facility] Start: 03-07-2022 End: 53-40-5620abjmavowtbZX AMELIA S WATTS .Facility:G3Tmbhh: 03-06-2022 End: 43-20-7307rravdrhjjwWC AMELIA S WATTS .Facility:G6Nrjfq: 03-06-2022 End: 46-59-1730Wwqjdguce for preprocedural laboratory examinationDR AMELIA S WATTS .Facility:N9Ndcwu: 02-28-2022 End: 81-03-2918yvhkyozfbjQG AMELIA S WATTS .Facility:P0Qeprn: 02-24-2022 End: 05-04-5285mwamclygzbZL AMELIA S WATTS .Facility:B0Tyjkc: 01-26-2022 End: 89-29-5083zjhzzchtggWDDI MCGILL .Facility:C5Yelyg: 01-17-2022 End: 85-72-1715rcjmatizlnCR RUGEN ALDAFacility:H1 Procedures DateProcedureProcedure DetailPerforming ClinicianStart: 79-69-8460EQ LUMBAR SPINE MIN 4VGeneric External Data ProviderStart: 72-28-5324AF SACROILIAC JOINT Generic External Data ProviderStart: 06-24-1407Nhfvdseeiu glycosylated i7kZkkljSandy Youssef MD Work Phone: Start: 46-02-1827Fylzonpuuz test result abnormal Abnormal laboratory test resultSandy Youssef MD Work Phone: Start: 15-36-7238Ixvfn albumin quantitativeJanel GOLDMAN Work Phone: Start: 50-83-6650YD CHEST WO CONGeneric External Data ProviderStart: 75-65-4039VH TOMOSYNTHESIS SCREENING Milla Youssef MD Work Phone: Start: 51-44-3986OwattoowhnqYpqmi Hemmer PA Work Phone: Start: 45-65-7056Ondgkhiwuq glycosylated u8uIoizmSandy Youssef MD Work Phone: Start: 12-26-2022 End: 18-53-1620Gkxrmaq of total hysterectomyH/O total hysterectomySandy Youssef MD Work Phone: Start: 95-37-1671CtgwjrmpigvMimlt Alda MD Work Phone: Start: 91-16-7565MlxtlccqraoZjuhm Alda MD Work Phone: Start: 11-11-2015H/O: hysterectomyHistory of hysterectomySandy Youssef MD Work Phone: H/O: hysterectomyHistory of hysterectomyJanel GOLDMAN Work Phone: Plan of Treatment DateCare ActivityDetailAuthorStart: 83-01-9117Jnhmrvmcj for malignant neoplasm of colonNOMS HealthcareStart: 95-64-2249Ujhop screening for proteinDiabetes: Urine Protein ScreeningNOMS HealthcareStart: 07-13-2025 End: 70-26-0965Kkbvdsp encounter clmwhtyrr19/15/2025 8:15 AM EST Office Visit [facility] [address] [place] [address] [place] [id number] Sandy Youssef MD [address] [place] [address] [place] [address] [facility] [place] Ram MedinceStart: 07-07-2025 Hemoglobin A1c measurementDiabetes: Hemoglobin U8LGZYS HealthcareStart: 74-35-3506Qdumj screening for proteinDiabetes: Urine Protein ScreeningNOFL HealthcareStart: 04-20-2025 End: 96-68-5517Vsxrdgm encounter procedureNOMS CI FMStart: 92-29-5910Kpdcgakqq for malignant neoplasm of breastMammogramNOFL HealthcareStart: 86-52-9942AZHIG- 19 Vaccine ( season)COVID-19 Vaccine ( season)[facility] HealthcareStart: 92-81-1134Vgnqfonfu vaccinationNOFL HealthcareStart: 01-13-2025 Hemoglobin A1c measurementDiabetes: Hemoglobin Y4XGFKD HealthcareStart: 10-13-2024 End: 54-92-5795Zpnvplz encounter uoxennvaz64/17/2025 9:00 AM EDT Office Visit [facility] [address] [place] [address] Sandy Youssef MD [address] [place] [address] [facility] CI FMStart: 09-11-2024 End: 78-61-2282Hfjcbnggpbwf/Creatinine panel in random UrineMicroalbumin / creatinine urine ratio Lab Routine Diabetic nephropathy associated with type 2 diabetes mellitus (HCC) (CMS/HCC) Expected: 09/11/2024 (Approximate), Expires: 09/11/2025NOFL Healthcare Work Phone: Comment on above:Expected: 09/11/2024 (Approximate), Expires: 09/11/2025Start: 09-11-2024 End: 54-29-3057Cbbwrtg encounter nzzpddtia61/13/2025 9:30 AM EST Office Visit [facility] [address] [place] [address] Janel Crowder PA [address] [place] [address] ArrivedNOMS CI FMComment on above:ArrivedStart: 08-12-2024 End: 70-50-4560Dktjgnh encounter procedureNOMS CI FMComment on above:Arrived Start: 09-73-6690Qdwfzztlso A1c measurementDiabetes: Hemoglobin I5HMMBP HealthcareStart: 04-28-2024 End: 66-66-8710Jludzao encounter uvabpdpkh49/30/2024 8:30 AM EDT Office Visit [facility] [address] [place] [address] Janel Crowder PA [address] [place] [address] ArrivedNOFL CI FMComment on above:ArrivedStart: 04-14-2024 End: 65-13-4401OBF panel - Blood by Automated countCBC Lab Routine Essential hypertension (CMS/HCC) Type 2 diabetes mellitus with other specified compl ication, without long-term current use of insulin (CMS/HCC) Diabetic nephropathy associated with type 2 diabetes mellitus (HCC) (CMS/HCC) Pure hypercholesterolemia (CMS/HCC) Expected: 04/14/2024 (Approximate), Expires: 04/14/2025NOFL HealthcareComment on above:Expected: 04/14/2024 (Approximate), Expires: 04/14/2025Start: 04-14-2024 End: 22-98-0394Ccvyzpfypgqkq metabolic 2000 panel - Serum or PlasmaComprehensive metabolic panel Lab Routine Essential hypertension (CMS/HCC) Type 2 diabetes mellituswith other specified complication, without long-term current use of insulin (CMS/HCC) Diabetic nephropathy associated with type 2 diabetes mellitus (HCC) (CMS/HCC) Pure hypercholesterolemia (CMS/HCC)Expected: 04/14/2024 (Approximate), Expires: 04/14/2025NOFL HealthcareComment on above:Expected: 04/14/2024 (Approximate), Expires: 04/14/2025Start: 04-14-2024 End: 60-14-6156Vnkei 1996 panel - Serum or PlasmaLipid panel Lab Routine Essential hypertension (CMS/HCC) Type 2 diabetes mellitus with other specified complication, without long-term current use of insulin (CMS/HCC) Diabetic nephropathy associatedwith type 2 diabetes mellitus (HCC) (CMS/HCC) Pure hypercholesterolemia (CMS/HCC) Expected: 04/14/2024 (Approximate), Expires: 04/14/2025NOFL HealthcareComment on above:Expected: 04/14/2024 (Approximate), Expires: 04/14/2025Start: 04-14-2024 End: 23-74-1464QV Breast - bilateral ScreeningBilateral screening mammogram Imaging Routine Encounter for screening mammogram for malignant neoplasm of breast Expected: 04/14/2024, Expires: 06/14/2025[facility] Work Phone: Comment on above:Expected: 04/14/2024, Expires: 06/14/2025Start: 04-14-2024 End: 15-06-0407Qsuupac encounter zvjrglpjy94/16/2024 1:00 PM EDT Office Visit [facility] [address] [facility] [address] [place] [address] Sandy Youssef MD [address] [facility] [address] [place] [address] ArrivedNOMS CI FMComment on above:ArrivedStart: 04-09-2024 Urine screening for proteinDiabetes: Urine Protein ScreeningNOFL Healthcare Start: 20-04-5949Iuhfeazbl vaccinationInfluenza Vaccine (#1)[facility] Start: 33-10-6683Jqgmnoymvq A1c measurementDiabetes: Hemoglobin M7SFVOF HealthcareStart: 46-91-3328Yxvhmfcvq for malignant neoplasm of breastMammogram NOM HealthcareStart: 76-78-1201Walgjvkha B Vaccines (1 of 3 - 19+ 3-dose series)Hepatitis B Vaccines (1 of 3 - 19+ 3-dose series)NOM HealthcareStart: 98-41-6851Qwscuwajpish Vaccine: Pediatrics (0 to 5 Years) and At-Risk Patients (6 to 64 Years) (1 of 2 - PCV)Pneumococcal Vaccine: Pediatrics (0 to 5 Years) and At-Risk Patients (6 to 64 Years) (1 of 2 - PCV)NOM HealthcareStart: 41-66-5129Bdxijygm screeningDiabetes: Retinopathy ScreeningNOFL HealthcareStart: 80-52-1516YKyM/Tdap/Td Vaccines (1 - Tdap)DTaP/Tdap/Td Vaccines (1 - Tdap)NOM HealthcareStart: 52-03-9853WYS Vaccines (1 of 1 - Standard series)MMR Vaccines (1 of 1 - Standard series)[facility] HealthcareStart: 78-25-5163Nvzbrcmeo for malignant neoplasm of colonINTERMOUNTAIN [facility]ARE Healthcare Immunizations Immunization DateImmunizationNotesCare UaltmzutMkazhmdi29-77-6883edteav vaccine- recombinant adjuvanted (Shingrix) 50 MCG/0.5ML vaccineJanel GOLDMAN Work Phone: [phone] HealthUyrkpdstic81-66-2208zaffnfdikhxw conjugate 20- valent (Prevnar 20) 0.5 ML vaccineJanel GOLDMAN Work Phone: [phone] HealthRllukkxqwj79-77-4845jwwyqkpxe, injectable, quadrivalent, preservative freeSandy Youssef MD Work Phone: [phone] HealthSvgydhyatw59-52-5508Brknkph Bivalent Booster VaccinationSandy Youssef MD Work Phone: [phone] [place], [place] [address]Cjmpxahvgz40-73-0789RCJG-ICQ-3 (COVID-19) vaccine, mRNA, spike protein, LNP, bivalent, preservative free, 30 mcg/0.3 mL dose, maria esther-sucrose formulationSandy Youssef MD Work Phone: [phone] HealthVinqkotvxy50-09-4012qwctxfxye virus vaccine, unspecified formulationSandy Youssef MD Work Phone: [phone] [place], [place] [address]Nlodviddgf41-67-6388Xkjuthyov, injectable, Madin Ayana Canine Kidney, preservative free, quadrivalentSandy Youssef MD Work Phone: [phone] [place] [address] Payers DatePayer CategoryPayerPolicy [id number] Health InsuranceHEALTHSCOPE Member Subscriber Plan / Payer (Effective 2022-Present) Name: Dhara Dallas ID: [id number] Relation to Subscriber: Self Name: Dhara Dallas Payer ID: Not on file Type: Not on file Address: [place] [id number] [id number].3.198[id number] 2.16.840.1.301315.3.57[id number] 2.16840.1.362998.3.57[id number] 2.16.840.1.680016.3.57[id number] 2.840.1.620755.3.579.[id number] 2.840.1.860003.3.57[id number] 2.840.1.362816.3.57[id number] 2.840.1.690901.3.57[id number] 2.840.1.566591.3.57[id number] 2.840.1.075251.3.57[id number] 2.840.1.709892.3.57[id number] 2.840.1.674746.3.57[id number] 2.840.1.622465.3.57[id number] 2.840.1.591934.3.57[id number] 2.16.840.1.792192.3.57[id number] 2.16.840.1.840663.3.579.2.61[id number] 2.16.840.1.397579.3.579.2.253920-53-3418Vjwwqny5447637 2.16.840.1.722433.3.579.2.7[id number] 2.16.840.1.240052.3.57[id number] 2.16.840.1.892727.3.57[id number] 2.16.840.1.097646.3.579.2.[id number] 2.16.840.1.502255.3.579.2.61158-07-1751Rbrserw8877[id number] Social History DateTypeDetailFacilityStart: 78-76-0085Gbfermb smoking status NHISSmoker (finding)[facility]: 37-46-5321[facility] 01-01-2023 End: 33-67-0286Waefkhu smoking status NHISSmokes tobacco dailyNOMS Healthcare Work Phone: Start: 95-87-7050Njnksdq of tobacco useCigarette SmokerNOMS HealthcareStart: 01-01-2023 End: 03-62-7975Amuwdkp use and exposureSmokeless tobacco non-userNOMS Healthcare Start: 04-14-2024 End: 64-34-9596Aqojkspjc beverage intakeCurrent drinker of alcohol (finding)[facility]OMS HealthcareStart: 10-22-2023 End: 80-92-1763Fufbvmk of Social functionNOMS HealthcareStart: 10-22-2023 End: 31-03-3057Kecrpp connection and isolation panelINTERMOUNTAIN HEALTHCARE HealthcareStart: 51-08-4355Db a typical week, how many times do you talk on the telephone with family, friends, or neighbors?Patient declinedNOFL HealthcareAre you now , , , , never or living with a partner? MarriedINTERMOUNTAIN HEALTHCARE HealthcareIn the past 12 months, was there a time when you were not able to pay the mortgage or rent on time?NoNOMS HealthcareStart: 05-12-2023 Alcohol Comment1-2 drinks monthly or less, caffeine yes coffee,sodaNOMS HealthcareStart: 87-75-6014Sei assigned at birthNot on fileINTERMOUNTAIN HEALTHCARE HealthcareStart: 41-90-7308Rnmqsly smoking status NHISEx-smokerINTERMOUNTAIN HEALTHCARE Healthcare Goals DatePatient GoalDesired Activity/StatePersonal health goal Functional Status BkrjEgdaqcjeigYrervpBezmbwyz04-78-9762Fquzjiz Health Questionnaire 2 item (PHQ- 2) [Reported][facility] HealthLwbxmomgwd96-32-5409Ngvzujl Health Questionnaire 2 item (PHQ- 2) [Reported][facility] Clinical Notes 12-22-2020 to 04-07-2025 Note Date & SoclCglsMnvaccpj24-82-7793 History of Present illness Narrative* Sandy Youssef [...] months of each other Pt states the ozempic is not working for her anymore not [...] being taken. She does not see a machine hose cutter. Over the past 2 weeks, how often [...] tablet 3 montelukast (Singulair) 10 MG tablet fetsymuyjluo-garv-kvqvpssy-folic acid (Centrum Silver, geriatric,) tablet as directed Orally nystatin (Mycostatin) 427415 UNIT/ML suspension OLANZapine (ZyPREXA) 10 MG tablet [...] Recheck, Anxiety Meds F/U. documented in this encounterCrittenton Behavioral HealthEewsuwghgb48-26-2117 History of Present illness Narrative* SUSI Martin - 09/11/2024 9:30 AM EST Images from [...] tablet 3 montelukast (Singulair) 10 MG tablet uhoesfiyiesk-uygw-khasnrxi-folic acid (Centrum Silver, geriatric,) tablet as directed Orally nystatin (Mycostatin) 002300 UNIT/ML suspension OLANZapine (ZyPREXA) 10 MG tablet [...] associated with type 2 diabetes mellitus (HCC) ([facility]/HCC) - Microalbumin / creatinine urine ratio; Future Urine sample obtained today for Microalbumin testing. Follow up for Appointment As Scheduled. documented in this encounterCrittenton Behavioral HealthTajsgkcimj73-98-3799 History of Present illness Narrative* Madison Oconnell [...] CAPSULE BY MOUTH DAILY 100 capsule 1 Mrmsegwyamb-Blvaxkovd-Rnuzrb (Trelegy Ellipta) 100-62.5-25 MCG/ACT aerosol powder Inhale [...] tablet 1 montelukast (Singulair) 10 MG tablet hqtpndmalpvg-pdxt-dnyimzta-folic acid (Centrum Silver, geriatric,) tablet as directed Orally nystatin (Mycostatin) 313823 UNIT/ML suspension OLANZapine (ZyPREXA) 10 MG tablet [...] Irritable bowel disease Respiratory failure with hypoxia (CMS/[facility]) 01/11/2023 Sepsis (CMS/[facility]) 01/11/2023 Past Surgical History: Procedure Laterality Date [...] diabetes mellitus with other specified complication (CMS/HCC) We discussed today, the importance of proper [...] instructions. Type 2 diabetes mellitus without complications (CMS/HCC) We discussed today, the importance of proper [...] Type 2 diabetes mellitus with diabetic nephropathy ([facility]) We discussed today, the importance of proper [...] Morbid (severe) obesity due to excess calories ([facility]) Discussed goal of BMI < 30. Advised [...] No follow-ups on file. documented in this [facility]11-20-2024 Telephone encounter Note* Telephone Encounter - SUSI Martin - 06/18/2024 10:03 AM EST OARRS reviewed, Rx sent into patient's pharmacy. [facility] HealthEmjzrkiddq87-24-1173 Miscellaneous Notes* Telephone Encounter - SUSI Martin - 06/18/2024 10:03 AM EST OARRS reviewed, Rx sent into patient's pharmacy. documented in this [facility]09-30-2024 History of Present illness Narrative* SUSI Martin [...] CAPSULE BY MOUTH DAILY 100 capsule 1 Gqsmeezjbgj-Jhjcdwrsq-Xumtnq (Trelegy Ellipta) 100-62.5-25 MCG/ACT aerosol powder Inhale [...] tablet 1 montelukast (Singulair) 10 MG tablet bhivvuidabhb-cfdl-ibavdlkk-folic acid (Centrum Silver, geriatric,) tablet as directed Orally nystatin (Mycostatin) 479435 UNIT/ML suspension OLANZapine (ZyPREXA) 10 MG tablet [...] time. Severe persistent asthma with acute exacerbation ([facility]) This is a chronic medical condition that is stable since last assessment. No changes in treatment are suggested at this time. COPD with chronic bronchitis ([facility]) This is a chronic medical condition that is stable since last assessment. No changes in treatment are suggested at this time. Essential hypertension ([facility]) Patient's blood pressure is currently well controlled. [...] time. Stage 3a chronic kidney disease (HCC) ([facility]) This is a chronic medical condition that [...] associated with type 2 diabetes mellitus (HCC) ([facility]) Will continue to monitor with routine HgbA1c. Morbid (severe) obesity due to excess calories ([facility]) Encouraged portion control, decrease simple sugars and carbohydrates, gradually increase activity level. Aim for continued gradual steady weight loss. Type 2 diabetes mellitus with other specified complication, without long-term current use of insulin ([facility]) Will continue to monitor with routine HgbA1c. Type 2 diabetes mellitus without complication, without long-term current use of insulin ([facility]/HCC) - semaglutide (Ozempic, 1 MG/DOSE,) 2 MG/1.5ML [...] Will continue to monitor with routine labs. 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 documented in this encounterCrittenton Behavioral HealthUeqeynzymd72-25-6532 History of Present illness Narrative* Sandy Youssef [...] being taken. She does not see a machine hose cutter. Current Outpatient Medications on File Prior to [...] CAPSULE BY MOUTH DAILY 100 capsule 1 Zpzeqozblmr-Kuejxypwc-Krjltf (Trelegy Ellipta) 100-62.5-25 MCG/ACT aerosol powder Inhale 1 puff in the morning. 1 each 11 gabapentin (Neurontin) 300 MG capsule loratadine (Claritin) 10 MG tablet 1 (one) time each day at the same time. metFORMIN (Glucophage) 500 MG tablet TAKE ONE TABLET BY MOUTH DAILY WITH A MEAL 100 tablet 1 dbroolyqcgvr-jayz-cjsxdcwa-folic acid (Centrum Silver, geriatric,) tablet as directed Orally nystatin (Mycostatin) 126689 UNIT/ML suspension OLANZapine (ZyPREXA) 10 MG tablet [...] (around 10/12/2024) for Diabetes. documented in this encounterCrittenton Behavioral HealthLoywdodrqm09-84-4513 NotePROCEDURE: XR SACRUM_COCCYX COMPARISON: None. HISTORY: Lumbar [...] Electronically authenticated by: BRANDON CRUZ Date: 2022-12-15 08:23[facility]02-09-2023 NoteCONSULTATION CONSULTATION DATE: 09/07/2022 HISTORY OF [...] otherwise indicated. Patient agrees with this plan.[facility] 09-07-2022 NoteCONSULTATION PROCEDURE DATE: 09/07/2022 PREOPERATIVE [...] be followed up in the office. [facility]Jrrgvepz09-64-1490 NoteCONSULTATION CONSULTATION DATE: 06/01/2022 HISTORY OF PRESENT [...] in three months' time unless otherwise indicated.[facility] HospitalDsthsrfu73-91-0143 Note CONSULTATION PROCEDURE DATE: 06/01/2022 PREOPERATIVE DIAGNOSIS: [...] will be followed up in the office.[facility] HospitalYokjlnab82-89-9600 NoteCONSULTATION PROCEDURE DATE: 04/06/2022 PRE AND POSTOPERATIVE [...] will be followed up in the clinic.[facility] 04-06-2022 NoteCONSULTATION CONSULTATION DATE: 04/06/2022 HISTORY [...] is to continue with her multivitamin regimen.[facility] HospitalKkatyhhs93-42-0364 NoteCONSULTATION CONSULTATION DATE: 01/26/2022 This is a [...] be followed up in the office post-procedure. [facility] Signed and Approved by: GRANT MCGILL . 02/02/2022 16:26:00[facility]05-26-2021 NoteHNO ID: [id number] Author: Naina Oliva MD Service: ? Author Type: Physician Type: Progress Notes Filed: 12/22/2020 3:15 PM Note Text: Subjective: Dhraa DALLAS is a 50 year old female. 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 It is unl (more content not included)...[facility]Evaluation noteNo assessment information availablePromedica Defiance Regional [facility] Work Phone: Evaluation note* Diagnosis Morbid [...] Anxiety state, unspecified documented in this encounter [facility] HealthcareEvaluation note* Diagnosis Diabetic nephropathy associated with [...] esophagitis Esophageal reflux documented in this encounter [facility] HealthcareEvaluation note* Diagnosis Morbid obesity (CMS/HCC)- Primary [...] associated with type 2 diabetes mellitus (HCC) (CMS/[facility]) Morbid (severe) obesity due to excess calories ([facility]) Type 2 diabetes mellitus with other specified complication, without long-term current use of insulin (CMS/HCC) Type 2 diabetes mellitus without complication, without long-term current use of insulin ([facility]) Adjustment disorder with anxiety (CMS/[facility]) Adjustment disorder with anxiety Seasonal allergic rhinitis due to pollen Depressive disorder ([facility]/HCC) Depressive disorder, not elsewhere classified Dizziness Dizziness and giddiness History of hysterectomy Acquired absence of both cervix and uterus Hot flashes due to menopause Hypertriglyceridemia (CMS/HCC) Pure hyperglyceridemia 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 Migraine without [...] pulmonary disease (CMS/HCC) documented in this encounter [facility] HealthcareEvaluation note* Diagnosis Morbid obesity (CMS/HCC)- [...] complication, without long-term current use of insulin ([facility]/HCC) Anxiety Anxiety state, unspecified Gastroesophageal reflux [...] associated with type 2 diabetes mellitus (HCC) ([facility]/HCC) Tremors of nervous system Anxiety Anxiety state, unspecified documented in this encounter [facility] HealthcareEvaluation note* Diagnosis Morbid obesity (CMS-HCC)- [...] Anxiety state, unspecified documented in this encounter [facility] HealthcareEvaluation note* Diagnosis Morbid obesity ([facility]-HCC)- Primary Morbid obesity Type 2 diabetes mellitus without complication, without long-term current use of insulin (HCC) Essential hypertension Unspecified essential hypertension Smoker Tobacco use disorder Dizziness Dizziness and giddiness Migraine without aura and without status migrainosus, not intractable Acute exacerbation of chronic obstructive pulmonary disease ([facility]) Obstructive chronic bronchitis with exacerbation Nicotine dependence, cigarettes, with unspecified nicotine-induced disorders- Primary Type 2 diabetes mellitus with other specified complication, without long-term current use of insulin ([facility]) Adjustment disorder with anxiety Adjustment disorder with anxiety Migraine without aura and without status migrainosus, not intractable Pure hyperglyceridemia (E78.1) Pure hyperglyceridemia Stage 3a chronic kidney disease ([facility]) Diabetic nephropathy associated with type 2 diabetes mellitus (HCC)- Primary Essential hypertension Unspecified essential hypertension Encounter for screening mammogram for malignant neoplasm of breast Type 2 diabetes mellitus with other specified complication, without long-term current use of insulin ([facility]) Morbid (severe) obesity due to excess calories ([facility]) Body mass index (BMI) 37.0-37.9, adult Chronic [...] nephropathy associated with type 2 diabetes mellitus ([facility]) Spinal stenosis of lumbar region, unspecified whether neurogenic claudication present- Primary Type 2 diabetes mellitus with diabetic nephropathy, without long-term current use of insulin ([facility]) Major depressive disorder, single episode, mild Major depressive disorder, single episode, mild Essential hypertension Unspecified essential hypertension documented in this encounter [facility] HealthcareEvaluation note* Diagnosis Morbid obesity ([facility]-HCC)- Primary Morbid obesity Type 2 diabetes mellitus [...] complication, without long-term current use of insulin ([facility]) Adjustment disorder with anxiety Migraine without aura and without status migrainosus, not intractable Pure hyperglyceridemia (E78.1) Pure hyperglyceridemia Stage 3a chronic kidney disease ([facility]) Diabetic nephropathy associated with type 2 diabetes mellitus (HCC)- Primary Essential hypertension Unspecified essential hypertension Encounter for screening mammogram for malignant neoplasm of breast Type 2 diabetes mellitus with other specified complication, without long-term current use of insulin ([facility]) Morbid (severe) obesity due to excess calories ([facility]) Body mass index (BMI) 37.0-37.9, adult Chronic obstructive pulmonary disease, unspecified (HCC) Atherosclerosis of aorta Pure hypercholesterolemia Migraine without aura and without status migrainosus, not intractable Depressive disorder Depressive disorder, not elsewhere classified Anxiety Anxiety state, unspecified Gastroesophageal reflux disease without esophagitis Esophageal reflux Essential hypertension- Primary Unspecified essential hypertension Type 2 diabetes mellitus with diabetic nephropathy, without long-term current use of insulin ([facility]) Diabetic nephropathy associated with type 2 diabetes mellitus ([facility]) Spinal stenosis of lumbar region, unspecified whether neurogenic claudication present- Primary Type 2 diabetes mellitus with diabetic nephropathy, without long-term current use of insulin ([facility]) Major depressive disorder, single episode, mild Essential hypertension Unspecified essential hypertension Tremors of nervous system Anxiety Anxiety state, unspecified Migraine without aura and without status migrainosus, not intractable documented in this encounter [facility] Summary Purpose Family History Relationship Condition [...] section and content) DATE CREATED AUTHOR 08/30/2021 [facility] DATE CREATED AUTHOR AUTHOR'S ORGANIZ JONATHAN 12/15/2021 [employer] DATE CREATED AUTHOR AUTHOR'S ORGANIZ ATION 01/05/2023 [facility] DATE CREATED AUTHOR AUTHOR'S ORGANIZ ATION 09/14/2024 [facility] DATE CREATED AUTHOR AUTHOR'S ORGANIZ ATION 04/09/2025 [facility] EPIC DATE CREATED AUTHOR AUTHOR'S ORGANIZ ATION 05/16/2025 [facility] Care Teams (unrecognized sec tion and content) Team Status: Active Member Role Status Dates Sandy Youssef MD Primary Care Provider Active Team Status: Inactive Member Role Status Dates Sandy Youssef MD Primary Care Provider Active S tart: March 22, 2024 End: March 22, 2024Kentrell Diana ProviderActiveStart: March 22, 2024 End: March 22, 2024Team MemberRelationshipSpecialtyStart DateEnd Date Sandy Youssef MD [address] [facility] [address] [place] [address] PCP - Generalmi Medicine12/21/22Team MemberRelationshipSpecialtyStart DateEnd Date Sandy Youssef MD [address] [facility] [address] [place] [address] PCP - GeneralFamily Medicine12/21/22Team MemberRelationshipSpecialtyStart DateEnd Date Sandy Youssef MD [address] [facility] [address] [place] [address] PCP - GeneralFamily Medicine12/21/22Team MemberRelationshipSpecialtyStart DateEnd Date Sandy Youssef MD [address] [facility] [address] [place] [address] PCP - GeneralFami Medicine12/21/22Team MemberRelationshipSpecialtyStart DateEnd Date Sandy Youssef MD [address] [place] [address] [place] [address] PCP - GeneralFamily Medicine12/21/22Team MemberRelationshipSpecialtyStart DateEnd Date Sandy Youssef MD [address] [place] [address] [place] [address] PCP - GeneralFamily Medicine523Team MemberRelationshipSpecialtyStart DateEnd Date Sandy Youssef MD [address] [place] [address] [place] [address] PCP - GeneralFamily Medicine12/21/22Team MemberRelationshipSpecialtyStart DateEnd Date Sandy Youssef MD [address] [place] [address] [place] [address] PCP - GeneralFamily Medicine12/21/22Team MemberRelationshipSpecialtyStart DateEnd Date Sandy Youssef MD [address] [place] [address] [place] [address] PCP - GeneralFamily Medicine12/21/22Team MemberRelationshipSpecialtyStart DateEnd Date Sandy Youssef MD [address] [place] [address] [place] [address] PCP - GeneralFamily Medicine12/21/22Team MemberRelationshipSpecialtyStart DateEnd Date Sandy Youssef MD [address] [place] [address] [place] [address] PCP - GeneralFamily Medicine23Team MemberRelationshipSpecialtyStart DateEnd Date Sandy Youssef MD [address] [place] [address] [place] [address] PCP - GeneralFamily Medicine12/21/22Team MemberRelationshipSpecialtyStart DateEnd Date Sandy Youssef MD [address] [facility] [address] [place] [address] PCP - [facility]12/21/22Team MemberRelationshipSpecialtyStart DateEnd Date Sandy Youssef MD [address] [facility] [address] [place] [address] PCP - [facility]12/21/22Te MemberRelationshipSpecialtyStart DateEnd Date Sandy Youssef MD [address] [facility] [address] [place] [address] PCP - [facility]12/21/22Te MemberRelationshipSpecialtyStart DateEnd Date Sandy Youssef MD [address] [facility] [place] [address] PCP - [facility]12/21/22 Goals (unrecognized section and content) Goals may be documented in a n alternate section Reason for Visit (unrecogniz ed section and content) ReasonCommentsMed RefillReasonCommentsDiabetesLast A1c was 6.5ReasonOnset Date CommentsMed Hyydgs344ReasonCommentsDiabetesLast 5.7 FOR RECORDS PERTAINING TO PATIENTS WHO [...] BE BASED ON THE PRIMARY CLINICAL RECORDS. [facility]. provides no warranty or guarantee of the accuracy or completeness of information in this document.
[2025-06-01 08:56] VITALS: BP 129/74; PULSE 91; TEMP 36.5; O2SAT 94
[2025-06-01 09:22] VITALS: BP 145/83; PULSE 87; O2SAT 98
[2025-06-01 09:23] VITALS: BP 142/77; PULSE 90; O2SAT 96
[2025-06-01] MEDS: BUPIVACAINE HCL 0.25% PF 25 MG/10 ML VIAL 8 ML INJ (09:23)
[2025-06-01] MEDS: LIDOCAINE HCL 2% 400 MG/20 ML MDV INJ (09:23)
--- NOTE | 2025-06-01 09:26 | W.PM.PROCNOT ---
Date of procedure: 06/01/25 Pre-op diagnosis: Pain due to lumbar spondylosis without myelopathy Post-op diagnosis: same as pre-op Procedure: Procedure: Bilateral L4-5, L5-S1 medial branch block Medications: Bupivacaine 0.25% 6cc The patient was seen and examined in the preoperative holding area.? An informed consent was obtained and placed on the chart.? The patient was brought to the medical procedure unit and placed in the prone position.? A timeout was completed verifying correct patient, procedure site, positioning, plan, and special equipment.? Using aseptic technique, the needle was placed at left L4. Under direct fluoroscopic visualization a Quincke-tipped spinal needle was advanced to the junction of the superior articulating process with the transverse process at the designated medial branch segment.? Preceded by negative aspiration, the above-mentioned injectate was placed in 1 mL aliquots.? The procedure was repeated at left L5, S1.? The needle was removed and insertion site was covered. The same procedure, at the same levels, was completed on the right side. The patient was taken to the postprocedural recovery area and monitored for an appropriate length of time before found suitable for discharge in the company of a responsible adult. Anesthesia: Local Surgeon: Yamile Lopez Pathology: none sent Condition: stable Disposition: no change
== END 2025-06-01 09:30 | disposition home or self-care (01) ==
PROVIDERS: PCP Family Medicine; Visit Provider Anesthesiology
DX: M47.816 Spondylosis without myelopathy or radiculopathy, lumbar region (principal); M54.50 Low back pain, unspecified
CPT/HCPCS: 64493; 64494; J0665

== ENCOUNTER 2025-06-04 08:27 | Outpatient (OUT) | payer OTHER, SELFPAY ==
--- OUTSIDE RECORDS SUMMARY | 2025-05-05 02:30 | XMS_ITS ---
Author Organization The [facility] in [place] Address [address] [place] [address] Care Team Providers Care Hydraulic Jack Operator Name Role Phone Josey Gonsalez MD Primary Care Provider Anders Bartlett Unavailable [phone] REASON FOR VISIT 1 year F/U Asthma/COPD Encounters Encounter Location Date Provider Diagnosis Pulmonary Medicine [address] [address] 05/05/2025 Anders Hickey Plan Of Treatment No Information Progress Notes * Nesha DALLAS ADOB:[birth year] (54 yo F)Acc No.[id number]:05/05/2025 UNLOCKED PROGRESS NOTE Follow Up Patient: Corine DELACRUZ Nesha Ziyad :?Anders Hickey DODOB:1970???Age:54 Y ???Sex:FemaleDate:05/05/2025Phone:[phone]:[address] [id number]:Josey Gonsalez MD Subjective: * Chief Complaints: * 1 . 1 year F/U Asthma/COPD. * Medical History: Objective: * Vitals: Assessment: Plan: * Treatment: * * Electronic signature of Anders Hickey DO on 06/04/2025 at 08:32 AM ESTSign off status: PendingVisit Status:?OFF CANC (OFFICE CANCEL) * Provider: Kim Hickey DO Date: 1 Generated for Printing/Faxing/eTransmitting on:?06/04/2025 08:32 AM EST
--- OUTSIDE RECORDS SUMMARY | 2025-06-04 08:32 | XMS_ITS | Patient Health Record ---
Author Organization [facility] [place] Address [address] [place] [address] Care Team Providers Care Supervisor Sawing And Assembly Name Role Phone Josey Gonsalez MD Primary Care Provider Anders Bartlett Unavailable [phone] Allergies Allergen (clinical drug ingredient) Drug/Non Drug [...] Administration Date Status Comme nts Flu, Fluzone (09857) 6 mos+, single-dose syringe/vial (6887-5855) Unknown 06/15/2022 Administered SARS-COV-2 (COVID 19) bivalent 30 mcg/0.3 ml ifzaGoiryhb16/17/2022dministered Social History Tobacco Use: Social History Observation [...] Status W/U Status Risk Notes Problem Obesity (240467126) Obesity, unspecified (E66.9) ActiveconfirmedProblemUncomplicated moderate persistent asthma (737617664) Moderate persistent asthma, uncomplicated (J45.40)ActiveconfirmedProblemLong- term current use of inhaled steroid (348460951)long-term (current) use of inhaled steroids (Z79.51)ActiveconfirmedProblemChronic obstructive pulmonary disease (78670906)Chronic obstructive pulmonary disease (J44.9)Activeconfirmed ProblemHypertension (23871997)Hypertension (I10)ActiveconfirmedProblemCOPD - Chronic obstructive pulmonary disease (33802577)COPD (chronic obstructive pulmonary disease) (J44.9)ActiveconfirmedProblemChronic kidney disease (845356706)Chronic kidney disease (N18.9)ActiveconfirmedProblemMental disorder caused by drug (405366594)Cigarette nicotine dependence with nicotine-induced disorder (F17.219)ActiveconfirmedProblemLaboratory test result abnormal (548531683)Abnormal laboratory test (R89.9)ActiveconfirmedProblemLung field abnormal (220950721)Ground glass opacity present on imaging of lung (R91.8) ActiveconfirmedProblemRenal cyst (084314120)Bilateral renal cysts (N28.1)Active confirmedProblemBody mass index 35.00 to 39.99 (228015174878135)Body mass index [BMI] 37.0-37.9, adult (Z68.37)Activeconfirmed Encounters Encounter Location Date Provider Diagnosis [facility] [place] [address] [place] [address] 03/18/2025 Anders Hickey Plan Of Treatment Pending [...] Coverage End Date [employer] [address] [address] [place] [address] [id number] Nesha Dallas Self - patient is the [...]
--- OUTSIDE RECORDS SUMMARY | 2025-06-04 08:32 | XMS_ITS | Encounter Summary ---
Author Organization [facility] Address [address] [place] [address] Care Team Providers Care Tile Layer Drainage Name Role Phone Josey Youssef MD Primary Care Provider [phone] Encounter Details DateTypeDepartmentCare Team (Latest Contact Info)Czhtzwphlwh13/23/2024linisync Result Encounter [facility] External Department Unsolicited Provider, Generic External Data Social History Tobacco UseTypesPacks/DayYears UsedDateSmoking Tobacco: Every DayCigarettes Smokeless Tobacco: NeverAlcohol UseStandard Drinks/WeekCommentsYes0 (1 standard drink = 0.6 oz pure alcohol)1-2 drinks monthly or less, caffeine yes coffee,soda Social Connection and Isolation PanelAnswerDate RecordedIn a typical week, how many times do you talk on the phone with family, friends, or neighbors?Patient kbvygotq64/25/2024How often do you get together with friends or relatives? Patient pauiaktp83/25/2024How often do you attend taoist or gnosticist services? Patient iwuvltsb86/25/2024Do you belong to any clubs or organizations such as taoist groups, unions, fraternal or athletic groups, or school groups?Patient pijzouat95/25/2024How often do you attend meetings of the clubs or organizations you belong to?Patient grrqzqem01/25/2024re you , , , , never , or living with a partner?Iyrdync1910/22/2023UDIT-C AnswerDate RecordedQ1: How often do you have a drink containing alcohol?Patient izamvjfp08/25/2024Q2: How many drinks containing alcohol do you have on a typical day when you are drinking?Patient feagcicd98/25/2024Q3: How often do you have six or more drinks on one occasion?Patient osinqouj42/25/2024Overall Financial Resource Strain (CARDIA)AnswerDate RecordedHow hard is it for you to pay for the very basics like food, housing, medical care, and heating?Patient /25/2024HQ-2AnswerDate RecordedPatient Health Questionnaire-2 Score0 04/07/2025Hunger Vital SignAnswerDate RecordedWithin the past 12 months, you worried that your food would run out before you got the money to buymore.Patient nnkbrtub84/25/2024Within the past 12 months, the food you bought just didn't last and you didn't have money to get more.Patient atjklnmt99/25/2024RAPARE - TransportationAnswerDate RecordedIn the past 12 months, [...] steady place to sleep or slept in [place] (including now)?No10/22/2023CommentsUnknownSex and Gender InformationValueDate RecordedSex Assigned [...] hopelessNot at all04/07/2025 7:26 AM Elysia Aggarwal [facility] Health Questionnaire-2 Ptjer732 7:26 AM Elysia Aggarwal MA documented as of this encounter Plan of Treatment DateTypeDepartmentCare Team (Latest Contact Info)Gkegujxanva32/15/2025 8:15 AM ESTOffice Visit [facility] [address] [place] [address] [place] [address] Josey Youssef MD [address] [place] [address] [place] [address] documented as of this encounter Procedures Procedure NamePriorityDate/TimeAssociated DiagnosisCommentsCT CHEST WO CON 04/21/2024 1:25 PM EDT documented in this encounter Results * CT CHEST WO CON (04/21/2024 1:25 PM EDT)Anatomical RegionLateralityModality OtherSpecimen (Source)Anatomical Location / LateralityCollection Method / VolumeCollection TimeReceived Time04/21/2024 1:25 PM EDT Narrative 04/21/2024 1:28 PM EDT [facility] ?[address] ? [place] [address] ? CT Scan Report ? Signed ? Patient: DHARA DALLAS ?MR#: [id number] ?? : 1970 ?Acct:[id number] ?? Age/Sex: 53 / F ?ADM Date: 04/18/24 ?? Loc: CT ? Attending Dr: Melisa Blanc D.O. ? Ordering Physician: Melisa Blanc D.O. ?? Date of Service: 04/18/24 ?? Procedure(s): CT chest wo con ?? Accession Number(s): [id number] ? cc: JOSEY YOUSSEF ? [facility] ? [address] ? [place] [address] ? Patient Name: ?? DHARA DALLAS ? MRN: [id number] ? date: 1970 ?Sex: F ?? Assigned Patient Location: CT ?? Current Patient Location: CT ?? Accession/Order Number: [id number] ?? Exam Date: 04/18/2024 ??07:40 ?Report Date: [...] 1328 ? DD/ 1325 ? TD/TT: ? Dishroom Attendant: Procedure Note Radiology, Radiologist, MD - 04/21/[address] [address] [address] Scan Report Signed Patient: DHARA DALLAS AMR#: [id number] : 1970Acct:[id number] Age/Sex: 53 / FADM Date: 04/18/24 Loc: CT Attending Dr: Melisa Blanc D.O. Ordering Physician: Melisa Blanc D.O. Date of Service: 04/18/24 Procedure(s): CT chest wo con Accession Number(s): [id number] cc: JOSEY YOUSSEF [address] [address] Patient Name: DHARA DALLAS MRN: [id number] date: 1970 Sex: F Assigned Patient Location: CT Current Patient Location: CT Accession/Order Number: [id number] Exam Date: 04/18/2024 07:40 Report Date: 04/21/2024 [...] PITTS Date: 04/21/2024 13:25 Dictated By: Melyssa Ptits M.D. Signed By:04/21/24 1328 DD/ 1325 TD/TT: Dishroom Attendant: Authorizing ProviderResult TypeResult StatusGeneric External Data Provider [facility] IMAGINGFinal Result documented in this encounter Visit Diagnoses Not on filedocumented in this encounter Care Teams Team MemberRelationshipSpecialtyStart DateEnd Date Josey Youssef MD [address] [place] [address] PCP - GeneralFamily Medicine12/21/22documented as of this encounter
--- OUTSIDE RECORDS SUMMARY | 2025-06-04 08:33 | XMS_ITS | Clinical Summary ---
Author Organization [facility] Address [address] [place] [address] Care Team Providers Care Power Saw Operator Name Role Phone Unavailable Primary Care Provider [...] number is lower riskNot on file12/22/2020ata from: [email or web address]/. Last address used for calculationNot on file12/22/2020CommentsUnknownSex and Gender InformationValueDate RecordedSex Assigned at XuoocBpmfcz38/07/2021 4:52 PM EDTLegal WbbLzqliz61/02/2012 8:22 AM ESTGender JhwpqebfJdzfnf15/07/2021 4:52 PM EDTSexual HhltamhojmaDlhjitxm41/07/2021 4:52 PM EDT Last Filed Vital Signs Vital SignReadingTime TakenCommentsBlood Pressure--Pulse--Temperature-- Respiratory Rate--Oxygen Saturation--Inhaled Oxygen Concentration--Plmfhq14.8 kg (220 lb)12/22/2020 12:24 PM OEZHmyrgv676.4 cm (5' 5.5 )12/22/2020 12:24 PM EDT Body Mass Index36.05012/22/2020 12:24 PM EDT Plan of Treatment Health MaintenanceDue DateLast DoneCommentsAnxiety Hxevqjwft93/01/1988Depression Hworscojl07/01/1988HIV Oohjdrgge82/01/1988Hepatitis C Kdnabklcs66/01/1988 DTaP,Tdap,Td Vaccine (1 - Tdap)1988Hepatitis B Vaccine (1 of 3 - 19+ 3- dose series)1988Cervical Cancer Vypjxwdmw87/01/1991Mammogram Screening 2009CT Owhdehouwwzv17/01/2015Cologuard (FIT-DNA)2014Colonoscopy 2014Colorectal Cancer Rusduqwph62/01/2015Diabetes Kwtmaxzyc48/01/2015Fecal Occult Blood2014Lipid Lcwgsjcby78/01/1854Dlhhivdifupdw32/01/2015 Pneumococcal Vaccine: 50+ (1 of 1 - PCV)2019Shingrix Vaccine (1 of 2) 2019Covid-19 Vaccine (1 - 2024- season)2025Influenza Vaccine (#1) 2025 Insurance
--- OUTSIDE RECORDS SUMMARY | 2025-06-04 08:33 | XMS_ITS | Encounter Summary ---
Author Organization [facility] Address [address] [place] [address] Care Team Providers Care Rn Vascular Name Role Phone Josey Gonsalez MD Primary Care Provider [phone] Encounter Details DateTypeDepartmentCare Team (Latest Contact Info)Jkkmqibbrwx86/28/2025bstract [facility] [address] [place] [address] [place] [address] Josey Gonsalez MD [address] [place] [address] [place], [place] [address] Social History Tobacco UseTypesPacks/DayYears UsedDateSmoking Tobacco: OvgpuhApousviyco676 Started: 1985Smokeless Tobacco: NeverAlcohol UseStandard Drinks/WeekCommentsYes0 (1 standard drink = 0.6 oz pure alcohol)1-2 drinks monthly or less, caffeine yes coffee,sodaSocial Connection and Isolation PanelAnswerDate RecordedIn a typical week, how many times do you talk on the phone with family, friends, or neighbors?Patient mqgfsarv50/25/2024How often do you get together with friends or relatives?Patient vvlryznb09/25/2024How often do you attend denominational or latter day services?Patient ykhjvvfj92/25/2024Do you belong to any clubs or organizations such as denominational groups, unions, fraternal or athletic groups, or school groups?Patient ugonstfv31/25/2024How often do you attend meetings of the clubs or organizations you belong to?Patient tgboaocp91/25/2024Are you , , , , never , or living with a partner? 4AUDIT-CAnswerDate RecordedQ1: How often do you have a drink containing alcohol?Patient /25/2024Q2: How many drinks containing alcohol do you have on a typical day when you are drinking?Patient witwmqwz08/25/2024Q3: How often do you have six or more drinks on one occasion?Patient pbywnefb02/25/2024 Overall Financial Resource Strain (CARDIA)AnswerDate RecordedHow hard is it for you to pay for the very basics like food, housing, medical care, and heating? Patient /25/2024HQ-2AnswerDate RecordedPatient Health Questionnaire-2 Njlvu984Hunger Vital SignAnswerDate RecordedWithin the past 12 months, you worried that your food would run out before you got the money to buymore. Patient jcnivgzh02/25/2024Within the past 12 months, the food you bought just didn't last and you didn't have money to get more.Patient oebpvlqo81/25/2024 PRAPARE - TransportationAnswerDate RecordedIn the past 12 [...] steady place to sleep or slept in [place] (including now)?No10/22/2023CommentsUnknownSex and Gender InformationValueDate RecordedSex Assigned at BirthNot on fileLegal SexFemale 10/11/2022 7:00 PM EDTGender IdentityNot on fileSexual OrientationNot on file documented as of this encounter Plan of Treatment DateTypeDepartmentCare Team (Latest Contact Info)Wetkpacavnm62/15/2025 8:15 AM ESTOffice Visit [facility] [address] [place] [address] [place] [address] Josey Gonsalez MD [address] [place] [address] [place] [address] documented as of this encounter Goals GoalPatient [...] MemberRelationshipSpecialtyStart DateEnd Date Josey Gonsalez MD [address] [facility] [address] [place] [address] PCP - GeneralFamily Medicine12/21/22documented as of this encounter
--- OUTSIDE RECORDS SUMMARY | 2025-06-04 08:33 | XMS_ITS | Clinical Summary ---
Author Organization [facility] Address [address] [place] [address] Care Team Providers Care Windows Mobile Developer Name Role Phone Josey Youssef MD Primary Care Provider [phone] Allergies Active AllergyReactionsCriticalityNoted DateCommentsHydromorphoneItching 03/04/2013 Other Reaction(s): Unknown Medications MedicationSigDispense QuantityRefillsLast FilledStart DateEnd DateStatus albuterol HFA 90 mcg/act inhaler 12/21/2022ctive nystatin (Mycostatin) 121712 UNIT/ML suspension 09/07/2022ctive traMADol (Ultram) 50 MG tablet Indications:Other chronic painTAKE ONE TABLET BY MOUTH FOUR TIMES A DAY NEEDED 120 tablet 02/22/2023ctive aspirin 81 MG EC tablet 1 (one) time each day at the same time.Active loratadine (Claritin) 10 MG tablet 1 (one) time each day at the same time.Active mzgkjhwbievt-urzk-hudysiuz-folic acid (Centrum Silver, geriatric,) tablet as directed [...] Continue Current meds. Spinal stenosis of lumbar qxhfrk1804/07/2025bnormal laboratory test result 10/13/2024hronic kidney ynnqqtu6710/13/2024Moderate persistent asthma without reqfhqhhvzfu84/17/2025Renal cyst09/11/2024OPD with chronic keidgknqij13/30/2024 Diabetic nephropathy associated with type 2 diabetes lpiuwmeq95/16/2024 Assessment & Plan (10/13/2024 9:08 AM EDT): [...] and importance of healthy diet and exercise. Itlpmtaxl88/11/2023 Assessment & Plan (04/09/2023 8:43 AM EDT): Increase fluids, drinking electrolyte intermediate frame tender (current) use of inhaled lgjdqxym48/07/2023Lung field abnormal 04/05/2023djustment disorder with hghyulb9112/26/2022llergic dqphlwis29/30/2023 Fgxrpr0912/26/2022aytime feschhizgh34/30/2023epressive szpwiisc23/30/2023 Assessment & Plan (04/14/2024 1:17 PM EDT): This is a chronic medical condition that is stable since last assessment. No changes in treatment are suggested at this time. Continue Current meds. Essential kfgrucjwxkfq49/30/2023 Assessment & Plan (04/07/2025 9:48 AM EDT): [...] the importance of taking them as prescribed. [employer] handouts Assessment & Plan (10/13/2024 9:08 AM [...] the importance of taking them as prescribed. [employer] handouts Assessment & Plan (04/14/2024 1:13 PM [...] the importance of taking them as prescribed. [employer] handouts Assessment & Plan (04/09/2023 8:31 AM [...] DASH diet handouts Hot flashes due to pxydierrt22/30/7671Nagnnzytbbzvcesamwxf97/30/2023Irritable bowel syndrome with nnheeaxe68/30/2023Leg length wawuhppvlpy51/30/2023Migraine without aura and without status migrainosus, not mezoaaycebx53/30/2023 Assessment & Plan (10/23/2023 9:00 AM EDT): [...] frequent Morbid (severe) obesity due to excess /30/2023 Assessment & Plan (04/14/2024 1:17 PM EDT): Weight loss encouraged Assessment & Plan (04/09/2023 8:30 AM EDT): Weight loss and exercise encouraged Osteoarthritis of lumbar spine12/26/2022Other chronic pain12/26/2022iriformis syndrome of left side12/26/20227148Uoldhurpj36/30/2023Pure hypercholesterolemia 12/26/2022 Assessment & Plan (04/14/2024 1:14 PM EDT): This is a chronic medical condition that is stable since last assessment. No changes in treatment are suggested at this time. Continue Current meds. Stage 3a chronic kidney mzefczi8212/26/2022 Assessment & Plan (10/23/2023 8:56 AM EDT): Saw Nephrology 6-8 months ago Surgical foxvdytkb48/30/2023Tension mwcmegke91/30/2023Type 2 diabetes mellitus 12/26/2022 Assessment & Plan [...] of healthy diet and exercise. Sciatic nerve srqiuk9904/06/2017History of pfpseeorwxry89/14/2016 Resolved Problems ProblemNoted DateDiagnosed DateResolved DatePre-yibnpwlh59ody mass index (BMI) 37.0-37.9, adult Assessment & [...] patient. Acute exacerbation of chronic obstructive pulmonary qirltgc94 Assessment & Plan (04/09/2023 9:18 AM EDT): Trelegy samples given Elevated BP without diagnosis of lqigdduobbid37/30/202309/Finding of above normal blood sosipfxm18H/O total bqbttsjuhhlu68/30/2023 04/28/2024Hot lfdmkhe30Impaired fasting qebecth1712/26/2022 04/14/2024Migraine xxzewyxm87Obesity (BMI 30.0-34.9)12/26/2022 04/28/20241425Fypgdt59/30/202302/ Assessment & Plan (04/09/2023 8:39 AM EDT): Discussed smoking cessation with the patient. Encouraged patient to cut back and soon quit smoking.Health risks of smoking, and benefits of quitting reviewed with the patient. Encounters DateTypeDepartmentCare HwjnNdjbzgqywhf17/28/2025bstract [facility] [address] [facility] [address] [place] [address] Josey Youssef MD 05/18/2025Refill [facility] [address] [facility] [address] [place] [address] Josey Youssef MD Tremors of nervous system; Anxiety; Migraine without aura and without status migrainosus, not skbjefbeccn06/25/2025 Clinisync Result Encounter [facility] External Department Unsolicited Provider, Generic External Data 04/23/2025linisync Result Encounter [facility] External Department Unsolicited Provider, Generic External Data 04/21/2025Refill [facility] [address] [facility] [address] [place] [address] Josey Youssef MD Tjfthiuye99/17/2025bstract [facility] [address] [facility] [address] [place] [address] Josey Youssef MD 04/07/2025 9:30 AM EDTOffice Visit [facility] [address] [facility] [address] [place] [address] Josey Youssef MD Spinal stenosis of lumbar region, unspecified whether neurogenic claudication present (Primary Dx); Type 2 diabetes mellitus with diabetic nephropathy, without long-term current use of insulin (HCC); Major depressive disorder, single episode, mild ; Essential logixhkiazdc54/09/7179Qhkaqz42/17/2025Refill [facility] [address] [facility] [address] [place] [address] Josey Youssef MD Anxietyfrom Last 3 Months Immunizations ImmunizationAdministration DatesNext DueInfluenza, injectable, MDCK, preservative free, wipfwqjmkkdl59/13/2021Influenza, injectable, quadrivalent, preservative free06/15/2022Moderna Bivalent Booster Mzikyobrsoz18/17/2022 SARS-COV-2 (COVID-19) vaccine, mRNA, spike protein, LNP, bivalent, preservative free, 30 mcg/0.3 mLdose, maria esther-sucrose qibtedpunmh08/17/2022 Family History Medical HistoryRelationNameCommentsColon cancerMaternal GrandfatherDiabetes Maternal GrandmotherCancer, DM HTNMotherPassed away ervical cancerMother DiabetesMotherhtnMotherPsoriasisOtherFamily historyHeart diseasePaternal GrandfatherStrokePaternal GrandfatherDiabetesPaternal GrandmotherRelationName StatusCommentsFatherAliveMaternal GrandfatherMaternal GrandmotherDeceasedMother DeceasedOtherFamily historyPaternal GrandfatherPaternal Grandmother Social History Tobacco UseTypesPacks/DayYears UsedDateSmoking Tobacco: RbijknMujjfqecnr578 Started: 1984Smokeless Tobacco: Never Tobacco Cessation:Counseling Given: Not Answered Alcohol UseStandard Drinks/WeekCommentsYes0 (1 standard drink = 0.6 oz pure alcohol)1-2 drinks monthly or less, caffeine yes coffee,sodaSocial Connection and Isolation PanelAnswerDate RecordedIn a typical week, how many times do you talk on the phone with family, friends, or neighbors?Patient iycepzen34/25/2024 How often do you get together with friends or relatives?Patient declined 10/22/2023How often do you attend baptism or confucianist services?Patient declined 10/22/2023o you belong to any clubs or organizations such as baptism groups, unions, fraBlack [employer] or athletic groups, or school groups?Patient declined 10/22/2023How often do you attend meetings of the clubs or organizations you belong to?Patient /25/2024re you , , , , never , or living with a partner?Ksyioob9810/22/2023UDIT-C AnswerDate RecordedQ1: How often do you have a drink containing alcohol?Patient ptvyujtg50/25/2024Q2: How many drinks containing alcohol do you have on a typical day when you are drinking?Patient wxkryjps09/25/2024Q3: How often do you have six or more drinks on one occasion?Patient bflawnnq33/25/2024Overall Financial Resource Strain (CARDIA)AnswerDate RecordedHow hard is it for you to pay for the very basics like food, housing, medical care, and heating?Patient ikhsqmqj11/25/2024HQ-2AnswerDate RecordedPatient Health Questionnaire-2 Score0 04/07/2025Hunger Vital SignAnswerDate RecordedWithin the past 12 months, you worried that your food would run out before you got the money to buymore.Patient bdeovdwa68/25/2024Within the past 12 months, the food you bought just didn't last and you didn't have money to get more.Patient zqzrqest92/25/2024RAPARE - TransportationAnswerDate RecordedIn the past 12 months, [...] Last Filed Vital Signs Vital SignReadingTime TakenCommentsBlood Xosxueth363/8809 9:27 AM EDT Qhcgr417204/07/2025 9:27 AM OWKMfiubzzofku78.3 ??C (99.2 ??F)01/10/2023 9:23 AM EDTRespiratory Juko282509/11/2024 9:28 AM ESTOxygen Paqvfjcvai38%04/07/2025 9:27 AM EDTInhaled Oxygen Concentration--Afbkne14.4 kg (217 lb)04/07/2025 9:27 AM EDT Sdhokb487.1 cm (5' 5 )04/07/2025 9:27 AM EDTBody Mass Index36.1109 9:27 AM EDT Plan of Treatment DateTypeDepartmentCare Team (Latest Contact Info)Owrwvlakzfv61/15/2025 8:15 AM ESTOffice Visit [facility] [address] [facility] [address] [place] [address] Josey Youssef MD [address] [facility] [address] [place] [address] Health MaintenanceDue DateLast DoneCommentsCT Zxqodlhxpdxs42/01/1970FIT-DNA 1969FIT1969FOBT1969 8789Uyemzdyfvvopj54/01/1970Diabetes: Retinopathy Gjhvvwnsw39/01/1980Pneumococcal Vaccine: Pediatrics (0 to 5 Years) and At-Risk Patients (6 to 64 Years) (1 of 2 - PCV)1988COVID-19 Vaccine (2024- season), 12/23/2021, 07/11/2021, Additional history existsInfluenza Vaccine (#1)/, 07/11/2021Mammogram , 2Diabetes: Hemoglobin A1C/03/2025, 10/13/2024, 04/14/2024, Additional history existsDiabetes: Urine Protein Prmummfqj72, 04/09/2023, 0225Sclfxyibvwt51/07/2031 12/03/2020olorectal Cancer Yufbnebxx76/07/2031 Goals GoalPatient Goal TypeAssociated ProblemsRecent ProgressPatient-Stated?Author Help patient manage antidepressant medication Care PlanPatient on antidepressant monitoring Josey Caceres MD Baseline PHQ-9 Care PlanBaseline PHQ-9Josey Peterson MD Procedures Procedure NamePriorityDate/TimeAssociated DiagnosisCommentsXR LUMBAR SPINE MIN 4V04/23/2025 9:48 AM EDT XR SACROILIAC JOINT04/23/2025 9:47 AM EDT POCT GLYCATED HEMOGLOBIN, WBYHIAakgpkm25/09/2025 9:37 AM EDT Type 2 diabetes mellitus with diabetic nephropathy, without long-term current use of insulin (HCC) MICROALBUMIN / CREATININE URINE RNAQASmoaxbl13/13/2025 2:17 PM EST MM TOMOSYNTHESIS SCREENING BI04/18/2024 12:10 PM EDT EMJFQEEVRKUDeffdri25/07/2021 12:00 PM EDT from Last 3 Months or Most Recently Relevant to Health Maintenance Results * XR LUMBAR SPINE MIN 4V (04/23/2025 9:48 AM EDT)Anatomical RegionLaterality ModalityOtherSpecimen (Source)Anatomical Location / LateralityCollection Method / VolumeCollection TimeReceived Time04/23/2025 9:48 AM EDT Narrative 04/23/2025 9:50 AM EDT [facility] ?[address] ? [place] [address] ?XRay Report ? Signed ? Patient: ARTIEDHARA HATFIELD ?MR#: [id number] ?? : 1970 ?Acct:[id number] ?? Age/Sex: 54 / F ?ADM Date: 04/23/25 ?? Loc: RAD ? Attending Dr: Tyra Vance STERILE PREPARATION TECHNICIAN ? Ordering Physician: Tyra Vance NP ?? Date of Service: 04/23/25 ?? Procedure(s): XR lumbar spine min 4V ?? Accession Number(s): [id number] ? cc: JOSEY YOUSSEF ; Tyra Vance NP ? [facility] ? [address] [facility] ? [place] [address] ? Patient Name: ?? DHARA BETTENCOURT ? MRN: [facility]:[id number] ? date: 1970 ?Sex: F ?? Assigned Patient Location: PM ?? Current Patient Location: PM ?? Accession/Order Number: [id number] ?? Exam Date: 04/23/2025 ??08:55 ?Report Date: 04/23/2025 ??09:48 ? At the request of: ?? TYRA ??RAJIV ??STERILE PREPARATION TECHNICIAN ? Procedure: ??XR lumbar spine min 4V [...] D.O. ??04/23/2025 9:48 AM ? Dictation Location: RADIO-PC-23 ? Electronically authenticated by: [id number] ??Y ?? Date: 04/23/2025 ??09:48 ? Dictated By: ?Rafiq Rai M.D. ? Signed By: ?04/23/25 0950 ? DD/ 0948 ? TD/TT: ? Interior Horticulturist: Procedure Note Radiology, Radiologist, - 04/23/2025 The [place] [id number] XRay Report Signed Patient: DHARA BETTENCOURT AMR#: [id number] : 1970Acct:[id number] Age/Sex: 54 / FADM Date: 04/23/25 Loc: RAD Attending Dr: Tyra Vance NP Ordering Physician: Tyra Vance NP Date of Service: 04/23/25 Procedure(s): XR lumbar spine min 4V Accession Number(s): [id number] cc: JOSEY YOUSSEF ; Tyra Vance NP The [place] [address] Patient Name: DHARA BETTENCOURT MRN: [id number] date: 1970 Sex: F Assigned Patient Location: Current Patient Location: Accession/Order Number: [id number] Exam Date: 04/23/2025 08:55 Report Date: 04/23/2025 [...] Jr., D.O. 04/23/2025 9:48 AM Dictation Location: [place] [address] Electronically authenticated by: [id number] Y Date: 9:48 Dictated By: Rafiq Rai M.D. Signed By:04/23/2550 DD/ 7 TD/TT: Interior Horticulturist: Authorizing ProviderResult TypeResult StatusGeneric External Data Provider CLINISYNC IMAGINGFinal Result * XR SACROILIAC JOINT (04/23/2025 9:47 AM EDT)Anatomical RegionLaterality ModalityRadiographic ImagingSpecimen (Source)Anatomical Location / Laterality Collection Method / VolumeCollection TimeReceived Time04/23/2025 9:47 AM EDT Narrative 04/23/2025 9:49 AM EDT [facility] ?[address] ? [place] [address] ?XRay Report ? Signed ? Patient: DHARA BETTENCOURT ?MR#: [id number] ?? : 1970 ?Acct:[id number] ?? Age/Sex: 54 / F ?ADM Date: 04/23/25 ?? Loc: RAD ? Attending Dr: Tyra Vance STERILE PREPARATION TECHNICIAN ? Ordering Physician: Tyra Vance NP ?? Date of Service: 04/23/25 ?? Procedure(s): XR sacroiliac joint ELIANE ?? Accession Number(s): [id number] ? cc: JOSEY YOUSSEF ; Tyra Vance NP ? [facility] ? [address] [facility] ? [place] [address] ? Patient Name: ?? DHARA BETTENCOURT ? MRN: [facility]:[id number] ? date: 1970 ?Sex: F ?? Assigned Patient Location: PM ?? Current Patient Location: PM ?? Accession/Order Number: [id number] ?? Exam Date: 04/23/2025 ??08:55 ?Report Date: 04/23/2025 ??09:47 ? At the request of: ?? TYRA ??RAJIV ??STERILE PREPARATION TECHNICIAN ? Procedure: ??XR sacroiliac joint ELIANE ? [...] D.O. ??04/23/2025 9:47 AM ? Dictation Location: [place] [address] ? Electronically authenticated by: [id number] ??Y ?? Date: 04/23/2025 ??09:47 ? Dictated By: ?Rafiq Rai M.D. ? Signed By: ?04/23/25948 ? DD/ ? TD/TT: ? Interior Horticulturist: Procedure Note Radiology, Radiologist, MD - 04/23/2025 [place] [address] XRay Report Signed Patient: DHARA BETTENCOURT AMR#: [id number] : 1970Acct:[id number] Age/Sex: 54 / FADM Date: 04/23/25 Loc: RAD Attending Dr: Tyra Vance NP Ordering Physician: Tyra Vance NP Date of Service: 04/23/25 Procedure(s): XR sacroiliac joint ELIANE Accession Number(s): [id number] cc: JOSEY YOUSSEF ; Tyra Vance NP [facility] [place] [id number] Patient Name: DHARA BETTENCOURT MRN: [id number] date: 1970 Sex: F Assigned Patient Location: Current Patient Location: Accession/Order Number: [id number] Exam Date: 04/23/2025 08:55 Report Date: 04/23/2025 [...] collapse. Impression dictated by: Rafiq Rai Jr., D.OInna 04/23/2025 9:47 AM Dictation Location: [place] [address] Electronically authenticated by: [id number] Y Date: 9:47 Dictated By: Rafiq Rai M.D. Signed By:04/23/2549 DD/ 6 TD/TT: Interior Horticulturist: Authorizing ProviderResult TypeResult StatusGeneric External Data ProviderIMG XR PROCEDURESFinal Result * POCT Glycated hemoglobin, total (04/07/2025 9:37 AM EDT)ComponentValueRef RangeTest MethodAnalysis TimePerformed AtPathologist SignatureHemoglobin A1C 5.5Specimen (Source)Anatomical Location / LateralityCollection Method / Volume Collection TimeReceived HempCqrtb25/09/2025 9:37 AM EDT Narrative Authorizing ProviderResult TypeResult Roseline Youssef MDPOINT OF CARE TEST ENTER/EDIT ORDERABLESFinal Result * Microalbumin / creatinine urine ratio (09/11/2024 2:17 PM EST)ComponentValue Ref RangeTest MethodAnalysis TimePerformed AtPathologist SignatureCREATININE, RANDOM ILLUD4314 - 275 mg/dLQUESTALBUMIN, URINE0.4See Note: mg/dLQUESTComment: Reference [...] Performing Organization Information ?Site ID: [id number] ?Name: [facility] [facility] ?Address: [address] [place] [address], [address] [place] [phone] ?Director: Christiano Escobar MD Authorizing ProviderResult TypeResult StatusJanel Field PALAB URINE ORDERABLESFinal ResultPerforming OrganizationAddressCity/State/ZIP CodePhone Number QUEST * MM TOMOSYNTHESIS SCREENING BI (04/18/2024 12:10 PM EDT)Anatomical Region LateralityModalityOtherSpecimen (Source)Anatomical Location / Laterality Collection Method / VolumeCollection TimeReceived Time04/18/2024 12:10 PM EDT Narrative 04/18/2024 12:11 PM EDT [facility] ?[address] ? [place] [address] ? Mammography Report ? Signed ? Patient: DHARA BETTENCOURT ?MR#: [id number] ?? : 1970 ?Acct:[id number] ?? Age/Sex: 53 / F ?ADM Date: 04/18/24 ?? Loc: MAMMO ? Attending Dr: JOSEY YOUSSEF ? Ordering Physician: JOSEY YOUSSEF ? Results: ? Date of Service: 04/18/24 ?Follow Up: ? Procedure(s): MM tomosynthesis screening BI ?? Accession Number(s): [id number] ? cc: JOSEY YOUSSEF ? Patient Name: ? DHARA BETTENCOURT ? MR#: [id number] ? : 1970 ? Exam Date: 04/18/2024 [...] at age 78. ? LOCATION: ? [facility] ? BREAST COMPOSITION: ? There are [...] 1211 ? DD/ 1210 ? TD/TT: ? Interior Horticulturist: Procedure Note Radiology, Radiologist, MD - 04/18/2024 [place] [address] Mammography Report Signed Patient: DHARA BETTENCOURT [facility]#: [id number] : 1970Acct:[id number] Age/Sex: 53 / FADM Date: 04/18/24 Loc: MAMMO Attending Dr: JOSEY YOUSSEF Ordering Physician: Taylor YOUSSEFults: Date of Service: 04/18/24Follow Up: Procedure(s): MM tomosynthesis screening BI Accession Number(s): [id number] cc: MIKAELYONG LackeyCHRIS Patient Name: DHARA BETTENCOURT MR#: [id number] : 1970 Exam Date: 04/18/2024 Ordering Doctor: [...] with lung cancer at age78. LOCATION: [facility] BREAST COMPOSITION: There are scattered areas [...] M.D. Signed By:04/18/24 1211 DD/ 1210 TD/TT: Interior Horticulturist: Authorizing ProviderResult TypeResult StatusJosey Youssef MDCLINISYNC IMAGING Final Result * Colonoscopy (12/03/2020 12:00 PM EDT)Anatomical RegionLateralityModality EndoscopySpecimen (Source)Anatomical Location / LateralityCollection Method / VolumeCollection TimeReceived Time12/03/2020 12:00 PM EDT Narrative 12/03/2020 12:00 PM EDT PERFORMED AT [facility] LOCATION:[id number] colonic polyp Procedure Note CONVERSION, GENERIC - 12/13/2022 PERFORMED AT [facility] LOCATION:[id number] colonic polyp Authorizing ProviderResult TypeResult StatusJosey Youssef MDENDOSCOPY PROCEDURE ORDERABLESFinal Result from Last 3 Months or Most Recently Relevant to Health Maintenance Additional Health Concerns Active ProblemsNoted DateDiagnosed DatePatient on antidepressant monitoring plan 04/07/2025aseline PHQ-9004/07/2025 Insurance Care Teams Team MemberRelationshipSpecialtyStart DateEnd Date Josey Youssef MD [address] [facility] [address] [place] [address] PCP - GeneralFamily Medicine12/21/22
--- OUTSIDE RECORDS SUMMARY | 2025-06-04 08:33 | XMS_ITS | Encounter Summary ---
Author Organization [facility] Address [address] [place] [address] Care Team Providers Care Magnetic Tape Typewriter Operator Name Role Phone Josey Youssef MD Primary Care Provider [phone] Encounter Details DateTypeDepartmentCare Team (Latest Contact Info)Tbwbzrxfeaq94/20/2024Clinisync Result Encounter [facility] Department Unsolicited Josey Youssef MD [address] [place], [place] [id number] Social History Tobacco UseTypesPacks/DayYears UsedDateSmoking Tobacco: Every DayCigarettes Smokeless Tobacco: NeverAlcohol UseStandard Drinks/WeekCommentsYes0 (1 standard drink = 0.6 oz pure alcohol)1-2 drinks monthly or less, caffeine yes coffee,soda Social Connection and Isolation PanelAnswerDate RecordedIn a typical week, how many times do you talk on the phone with family, friends, or neighbors?Patient fetwqgls90/25/2024How often do you get together with friends or relatives? Patient qdwuuutv59/25/2024How often do you attend voodoo or episcopalian services? Patient jzozxlgw44/25/2024Do you belong to any clubs or organizations such as voodoo groups, unions, fraternal or athletic groups, or school groups?Patient hyigarzx61/25/2024How often do you attend meetings of the clubs or organizations you belong to?Patient kzavaqur55/25/2024re you , , , , never , or living with a partner?Axmkkjt0810/22/2023UDIT-C AnswerDate RecordedQ1: How often do you have a drink containing alcohol?Patient ahjnaxwp21/25/2024Q2: How many drinks containing alcohol do you have on a typical day when you are drinking?Patient qvqiqwwy95/25/2024Q3: How often do you have six or more drinks on one occasion?Patient tyoqfluu48/25/2024Overall Financial Resource Strain (CARDIA)AnswerDate RecordedHow hard is it for you to pay for the very basics like food, housing, medical care, and heating?Patient ufhjvbyr06/25/2024HQ-2AnswerDate RecordedPatient Health Questionnaire-2 Score0 04/07/2025Hunger Vital SignAnswerDate RecordedWithin the past 12 months, you worried that your food would run out before you got the money to buymore.Patient /25/2024Within the past 12 months, the food you bought just didn't last and you didn't have money to get more.Patient vysmlsed90/25/2024RAPARE - TransportationAnswerDate RecordedIn the past 12 months, [...] steady place to sleep or slept in [facility] (including now)?No10/22/2023CommentsUnknownSex and Gender InformationValueDate RecordedSex Assigned [...] 7:26 AM Elysia Aggarwal MAPatient Health Questionnaire-2 [id number] 7:26 AM Elysia Aggarwal MA documented as of this encounter Plan of Treatment DateTypeDepartmentCare Team (Latest Contact Info)Qgpeqoskbdm47/15/2025 8:15 AM ESTOffice Visit [facility] [address] [place] [address] Josey Youssef MD [address] [place] [address] documented as of this encounter Procedures Procedure NamePriorityDate/TimeAssociated DiagnosisCommentsMM TOMOSYNTHESIS SCREENING BI04/18/2024 12:10 PM EDT documented in this encounter Results * MM TOMOSYNTHESIS SCREENING BI (04/18/2024 12:10 PM EDT)Anatomical Region LateralityModalityOtherSpecimen (Source)Anatomical Location / Laterality Collection Method / VolumeCollection TimeReceived Time04/18/2024 12:10 PM EDT Narrative 04/18/2024 12:11 PM EDT [facility] ?[address] ? [place] [address] ? Mammography Report ? Signed ? Patient: SGDHARA Lackey ?MR#: [id number] ?? : 1970 ?Acct:[id number] ?? Age/Sex: 53 / F ?ADM Date: //24 ?? Loc: MAMMO ? Attending Dr: JOSEY YOUSSEF ? Ordering Physician: JOSEY YOUSSEF ? Results: ? Date of Service: //24 ?Follow Up: ? Procedure(s): MM tomosynthesis screening BI ?? Accession Number(s): [id number] ? cc: JOSEY YOUSSEF ? Patient Name: ? DHARA DALLAS ? MR#: [id number] ? : 1970 ? Exam Date: 04/18/2024 [...] at age 78. ? LOCATION: ? [facility] ? BREAST COMPOSITION: ? There are scattered [...] ?04/18/241210 ? DD/ 09 ? TD/TT: ? Plant Physiology Teacher: Procedure Note Radiology, Radiologist, MD - 04/18/2024 [place] [address] Mammography Report Signed Patient: DHARA DALLAS AMR#: [id number] : 1970Acct:[id number] Age/Sex: 53 / FADM Date: 04/18/24 Loc: MAMMO Attending Dr: JOSEY YOUSSEF Ordering Physician: Taylor YOUSSEFults: Date of Service: 04/18/24Follow Up: Procedure(s): MM tomosynthesis screening BI Accession Number(s): [id number] cc: JOSEY YOUSSEF Patient Name: DHARA DALLAS MR#: [id number] : 1970 Exam Date: 04/18/2024 Ordering Doctor: [...] with lung cancer at age78. LOCATION: [facility] BREAST COMPOSITION: There are scattered areas of [...] M.D. Signed By:04/18/24 1211 DD/ 1210 TD/TT: Plant Physiology Teacher: Authorizing ProviderResult TypeResult StatusJosey Youssef MDCLINISYNC IMAGING Final Result documented in this encounter Visit Diagnoses Not on filedocumented in this encounter Care Teams Team MemberRelationshipSpecialtyStart DateEnd Date Josey Youssef MD [address] [place] [address] PCP - GeneralFamily Medicine12/21/22documented as of this encounter
--- OUTSIDE RECORDS SUMMARY | 2025-06-04 08:36 | XMS_ITS | CCD ---
Author Organization [facility] Care Team Providers Care Pin Sorter And Bagger Name Role Phone WATTS ., DR AMELIA [...] Unavailable ZIEBCHHAYA, DR BRANDON Underwood Consult[employer] Unavailable HALKAI ., DEYA Consulting Unavailable MIKAEL, DR DELGADO [...] Primary Care Unavailable KEVEN ESCOBEDO Consulting Unavailable [place] Sandy GOMEZ Primary Care Provider JANEL CROWDER Attending Unavailable MIKAELSANDY Attending Unavailable MIKAELSANDY Attending Unavailable HEMJANEL MURRY Attending Unavailable LILIAMADISON CALLES Attending Unavailable MIKAELSANDY Attending Unavailable Yamile Lopez MD Attending Unavailable Allergies Allergy ClassificationReported Allergen(s)Allergy TypeDate of OnsetReaction(s) Facility (1 source)HYDROmorphoneDrug Jxczyre06-97-0931BfbCinc[facility] (20 sources)HYDROmorphoneDrug Nmtjnwy60-72-8977KbmglyxJVNN Healthcare Medications Current Medications MedicationDrug Class(es)DatesSig (Normalized)Sig (Original)[id number] 200 actuat albuterol 0.09 mg/actuat metered dose inhaler (20 sources)beta2-Adrenergic AgonistStart: 49-78-5707hsmhkepgx HFA 90 mcg/act inhaler 12/21/2022 Activealbuterol 0.833 mg/ml / ipratropium bromide 0.167 mg/ml inhalation solution (20 sources)Anticholinergic, beta2-Adrenergic AgonistStart: 09-30-2023 ipratropium-albuterol (Duo-Neb) 0.5-2.5 mg/3 mL nebulizer solution 09/30/2023 ActiveALPRAZolam 0.5 mg oral tablet (20 sources)BenzodiazepineStart: 04-14-2024 End: 18-06-4911sjsi 1 tablet by mouth once daily in the morning, then take 1 tablet by mouth once daily at bedtimeALPRAZolam (Xanax) 0.5 MG tablet Indications: Anxiety TAKE 1 TABLET BY MOUTH EVERY MORNING AND TAKE1 TABLET BY MOUTH EVERY NIGHT AT BEDTIME 60 tablet 05/18/2025 06/17/2025 ActiveamLODIPine 5 mg oral tablet (20 sources)Dihydropyridine Calcium Channel BlockerStart: 04-07-2025 End: 95-85-6707rdhn 1 tablet by mouth once dailyamLODIPine (Norvasc) 5 MG tablet Indications: Essential hypertension Take 1 tablet (5 mg) by mouth Daily 04/07/2025 ActiveStart: 08-19-2024 End: 63-50-9672cwiv 1 tablet by mouth once dailyamLODIPine (Norvasc) 10 MG tablet Indications: Essential hypertension TAKE 1 TABLET BY MOUTH DAILY 100 tablet 3 08/19/2024 04/07/2025 Discontinued (Reorder)Start: 09-71-2498oulu 1 tablet by mouth once dailyamLODIPine (Norvasc) 10 MG tablet Indications: Essential hypertension (CMS/HCC) TAKE ONE TABLET BY MOUTH DAILY 100 tablet 3 08/14/2023 Activeaspirin 81 mg delayed release oral tablet (20 sources)Platelet Aggregation Inhibitor, Nonsteroidal Anti-inflammatory Drug aspirin 81 MG EC tablet 1 (one) time each day at the same time. Active atorvastatin 40 mg oral tablet (20 sources)HMG-CoA Reductase InhibitorStart: 25-89-3389ntrx 1 tablet by mouth once dailyatorvastatin (Lipitor) 40 MG tablet Indications: Hypertriglyceridemia TAKE 1 TABLET BY MOUTH DAILY 100 tablet 3 08/19/2024 ActiveStart: 23-74-2490dqay 1 tablet by mouth once dailyatorvastatin (Lipitor) 40 MG tablet Indications: Hypertriglyceridemia (CMS/HCC) TAKE 1 TABLET BY MOUTH DAILY 100 tablet 1 02/11/2024 Activeazithromycin 250 mg oral tablet (4 sources)Macrolide AntimicrobialStart: 08-05-2024 End: 21-42-9954usef 2 tablets by mouth once daily, then [...] 5 mg oral tablet (20 sources)Muscle RelaxantStart: 19-44-4175jgaq 1 tablet by mouth three times dailycyclobenzaprine (Flexeril) 5 MG tablet Indications: Tremors of nervous system TAKE 1 TABLET BY MOUTH 3 TIMES A DAY 90 tablet 1 05/18/2025 ActiveStart: 02-02-2025 End: 57-13-5255qihf 1 tablet by mouth three times dailycyclobenzaprine (Flexeril) 5 MG tablet Indications: Tremors of nervous system TAKE 1 TABLET BY MOUTH 3 TIMES A DAY 90 tablet 1 02/02/2025 05/18/2025 DiscontinuedStart: 90-44-2257smct 1 tablet by mouth three times dailycyclobenzaprine (Flexeril) 5 MG tablet Indications: Tremors of nervous system TAKE 1 TABLET BY MOUTH 3 TIMES A DAY 90 tablet 1 11/24/2024 ActiveStart: 07-07-2024 End: 43-67-0581dfny 1 tablet by mouth three times dailycyclobenzaprine (Flexeril) 5 MG tablet Indications: Tremors of nervous system TAKE 1 TABLET BY MOUTH 3 TIMES A DAY 90 tablet 1 07/07/2024 11/24/2024 DiscontinuedStart: 20-76-7766pcnd 1 tablet by mouth three times dailycyclobenzaprine (Flexeril) 5 MG tablet Indications: Tremors of nervous system TAKE 1 TABLET BY MOUTH 3 TIMES A DAY 90 tablet 1 04/22/2024 ActiveStart: 96-70-8472dohg 5 mg by mouth once daily at bedtimeCyclobenzaprine Active 5 MG PO Daily at bedtime March 22, 2024 12:00amStart: 91-96-5228smjk 1 tablet by mouth three times daily cyclobenzaprine (Flexeril) 5 MG tablet Indications: Tremors of nervous system TAKE ONE TABLET BY MOUTH THREE TIMES A DAY 90 tablet 1 11/26/2023 Active Dextromethorphan-buPROPion ER (Auvelity) 45-105 MG tablet controlled-release (4 sources)Start: 04-07-2025 End: 62-71-3925yyws 45-105 mg by mouth once dailyDextromethorphan-buPROPion ER (Auvelity) 45-105 MG tablet controlled-release Indications: Major depressive disorder, single episode, mild Take 1 tablet by mouth Daily 30 tablet 04/07/2025 05/07/2025 Iqbobp86 hr diclofenac sodium 100 mg extended release oral tablet (20 sources)Nonsteroidal Anti-inflammatory DrugStart: 70-43-6582jgko 1 tablet by mouth once dailydiclofenac sodium (Voltaren XR) 100 mg 24 hr tablet Indications: Dizziness TAKE 1 TABLET BY MOUTH DAILY 30 tablet 2 04/21/2025 ActiveStart: 95-76-1262zral 1 tablet by mouth once dailydiclofenac sodium (Voltaren XR) 100 mg 24 hr tablet Indications: Dizziness TAKE 1 TABLET BY MOUTH DAILY 30 tablet 2 12/29/2024 ActiveStart: 24-73-3444yjww 1 tablet by mouth once dailydiclofenac sodium (Voltaren XR) 100 mg 24 hr tablet Indications: Dizziness TAKE 1 TABLET BY MOUTH DAILY 30 tablet 2 09/15/2024 ActiveStart: 03-22-2024 End: 29-51-4782Jjxiudvamd Sodium Discontinued MG PO March 22, 2024 12:00am March 22, 2024 9:35amStart: 24-39-0322omyd 1 tablet by mouth once daily diclofenac [...] capsule (20 sources)Serotonin and Norepinephrine Reuptake InhibitorStart: 47-91-5411jppr 1 capsule by mouth once dailyDULoxetine (Cymbalta) [address] capsule Indications: Depressive disorder Take 1 capsule (30 mg) by mouth Daily 100 capsule 3 02/16/2025 ActiveStart: 50-30-1679atxe 1 capsule by mouth once dailyDULoxetine (Cymbalta) [address] capsule Indications: Depressive disorder (CMS/HCC) TAKE 1 CAPSULE BYMOUTH DAILY 30 capsule 2 10/20/2024 ActiveStart: 71-96-9730zmiy 1 capsule by mouth once dailyDULoxetine (Cymbalta) [address] capsule Indications: Depressive disorder TAKE 1 CAPSULE BY MOUTH DAILY 100 capsule 3 08/19/2024 ActiveStart: 33-85-9219wygn 1 capsule by mouth once dailyDULoxetine (Cymbalta) [address] capsule Indications: Depressive disorder (CMS/HCC) TAKE 1 CAPSULE BY MOUTH DAILY 30 capsule 2 07/21/2024 ActiveStart: 99-60-9409mmts 1 capsule by mouth once dailyDULoxetine (Cymbalta) [address] capsule Indications: Depressive disorder (CMS/HCC) TAKE 1 CAPSULE BYMOUTH DAILY 30 capsule 2 04/18/2024 Active Start: 33-09-6780qgeg 1 capsule by mouth once dailyDULoxetine (Cymbalta) [address] capsule Indications: Depressive disorder (CMS/HCC) TAKE 1 CAPSULE BYMOUTH DAILY 100 capsule 1 02/11/2024 ActiveStart: 97-13-3853lruy 30 mg by mouth once dailyDuloxetine Active 30 MG PO Daily March 22, 2024 12:00am in addition to 60mg30 actuat fluticasone furoate 0.1 mg/actuat / umeclidinium 0.0625 mg/actuat / vilanterol 0.025 mg/actuat dry powder inhaler (12 sources)Anticholinergic, Corticosteroid, beta2-Adrenergic AgonistStart: 02-01-2023 End: 99-05-2741bzlu 1 puff(s) by inhalation in the morning Ntittzvkvch-Sstrjxrqc-Wmnnga (Trelegy Ellipta) 100-62.5-25 MCG/ACT aerosol powder Indications: Acute exacerbation of chronic obstructive pulmonary disease (CMS/HCC) Inhale 1 puff in the morning. 1 each 02/01/2023 08/12/2024 Discontinued (Therapy completed)furosemide 20 mg oral tablet (20 sources)Loop DiureticStart: 26-17-0086wtdl 1 tablet by mouth once daily furosemide (Lasix) 20 MG tablet Indications: Essential hypertension TAKE 1 TABLET(20 MG) BY MOUTH DAILY 100 tablet 1 11/04/2024 ActiveStart: 02-11-2024 End: 60-24-5529lnqh 1 tablet by mouth once dailyfurosemide (Lasix) 20 MG tablet Indications: Essential hypertension (CMS/HCC) Take 1 tablet (20 mg)by mouth Daily 100 tablet 1 04/14/2024 Activegabapentin 300 mg oral capsule (14 sources)Anti-epileptic AgentStart: 09-11-2024 End: 11-53-3670kbzy 1 capsule by mouth in the morning, [...] days. 30 capsule 09/11/2024 ActiveStart: 12-16-2022 End: 07-86-2749zbecrcmpcy (Neurontin) 300 MG capsule 12/16/2022 04/28/2024 Discontinued (Other)loratadine 10 mg oral tablet (20 sources)loratadine (Claritin) 10 MG tablet 1 (one) time each day at the same time. ActivemetFORMIN hydrochloride 500 mg oral tablet (20 sources)BiguanideStart: 86-82-6985ebah 1 tablet by mouth once daily at mealtimemetFORMIN (Glucophage) 500 MG tablet Indications: Hypertriglyceridemia TAKE 1 TABLET BY MOUTH DAILYWITH A MEAL 100 tablet 3 08/19/2024 ActiveStart: 87-27-1668cnny 1 tablet by mouth once daily at mealtimemetFORMIN (Glucophage) 500 MG tablet Indications: Hypertriglyceridemia (CMS/HCC) TAKE ONE TABLET BY MOUTH DAILY WITH A MEAL 100 tablet 1 02/11/2024 ActivemethylPREDNISolone (2 sources)CorticosteroidStart: 08-12-2024 End: 57-27-0194fuwwpnSCVKEMHtbdqi (Medrol Dospak) 4 MG tablets Indications: Pansinusitis, unspecified chronicity Follow schedule on package instructions 21 tablet 08/12/2024 08/19/2024 Activemontelukast 10 mg oral tablet (20 sources)Leukotriene Receptor AntagonistStart: 35-97-5249bgnbxkecasz (Singulair) 10 MG tablet 09/16/2023 Knazavbelbwwcftorz-kagb-vxoglvxd-folic acid (Centrum Silver, geriatric,) tablet (20 sources)ursmuyybkxcx-wqco-dwdvivaz-folic acid (Centrum Silver, geriatric,) tablet as directed Orally Activenystatin 452997 unt/ml oral suspension (20 sources)Polyene AntifungalStart: 96-24-7664qrcqbver (Mycostatin) 296320 UNIT/ML suspension 09/07/2022 Activeofloxacin 3 mg/ml ophthalmic solution (6 sources)Quinolone AntimicrobialStart: 03-22-2024 End: 88-58-7588omfjngxoj (Ocuflox) 0.3 % ophthalmic solution Four times daily 03/22/2024 04/28/2024 Discontinued (Therapy completed)Start: 16-54-2842munl 1 drop(s) into the eye(s) four times dailyOfloxacin Active 2 DROPS OPHTHALMIC Four times daily 12 03March 22, 2024 12:00am right eyeOLANZapine 10 mg oral tablet (20 sources)Atypical AntipsychoticStart: 96-75-6206wmwz 1 tablet by mouth once dailyOLANZapine (ZyPREXA) 10 MG tablet Indications: Adjustment disorder with anxiety TAKE 1 TABLET BY MOUTH DAILY 100 tablet 3 08/19/2024 ActiveStart: 54-90-8698vajt 1 tablet by mouth once dailyOLANZapine (ZyPREXA) 10 MG tablet Indications: Adjustment disorder with anxiety (CMS/HCC) TAKE 1 TABLET BY MOUTH DAILY 100 tablet 1 02/11/2024 Activeomeprazole 40 mg delayed release oral capsule (20 sources)Proton Pump InhibitorStart: 04-14-2024 End: 99-62-4307vrur 1 capsule by mouth once daily before mealtimeomeprazole (PriLOSEC) [address] capsule Indications: Gastroesophageal reflux disease without esophagitis TAKE 1 CAPSULE BY MOUTH EVERY MORNING BEFORE MEALS, DO NOT CRUSH OR CHEW 100 capsule 3 07/21/2024 Activeondansetron 4 mg oral tablet (11 sources)Serotonin-3 Receptor AntagonistStart: 01-17-2024 End: 25-73-7928jvfc 1 tablet by mouth every six hours as needed for nausea and vomitingondansetron (Zofran) 4 MG tablet TAKE 1 TABLET BY MOUTH EVERY 6 HOURS NEEDED FOR NAUSEA AND VOMITING 01/17/2024 08/12/2024 Discontinued (Therapy completed)Ozempic, 1 MG/DOSE, 4 MG/3ML solution pen-injector (4 sources)Start: 10-09-2024 End: 69-34-6493Xwjkrub, 1 MG/DOSE, 4 MG/3ML solution pen-injector 10/09/2024 04/07/2025 Discontinued (Therapy completed)Start: 57-43-4269Fpgpbbr, 1 MG/DOSE, 4 MG/3ML solution pen-injector 10/09/2024 Activepotassium chloride 10 meq extended release oral tablet (20 sources)potassium chloride CR (Klor-Con) 10 MEQ ER tablet every 12 (twelve) hours. Activerimegepant 75 mg disintegrating oral tablet (20 sources)Start: 85-88-1257ftye 1 tablet by mouth every other dayRimegepant Sulfate (Nurtec) 75 MG tablet dispersible Indications: Migraine without aura and withoutstatus migrainosus, not intractable DISSOLVE 1 TABLET BY MOUTH EVERY OTHER DAY FOR PREVEBTATIVE 15 tablet 2 05/18/2025 ActiveStart: 12-29-2024 End: 80-51-5680mcjd 1 tablet by mouth every other dayRimegepant [...] 30 tablet 11 10/23/2023 ActiveSemaglutide (1 source)Start: 14-44-3189vdmvgr 1 mg by subcutaneous injection every week Semaglutide (Ozempic) 1 mg/dose (4 mg/3 mL) pen injector Active 1 MG SUBCUT every week February 12:00am1 mg dose 1.5 ml semaglutide 1.34 mg/ml pen injector (20 sources)Start: 11-05-2024 End: 72-94-8114qvrldi 1 mg by subcutaneous injection every weeksemaglutide (Ozempic, 1 MG/DOSE,) 2 MG/1.5ML solution pen-injector Indications: Type 2 diabetes mellitus without complication, without long-term current use of insulin (HCC) Inject 1 mg under the skin 1 (one) time per week 3 mL 5 11/05/2024 04/07/2025 Discontinued (Therapy completed)Start: 10-23-2023 End: 96-22-9749dekihu 1 mg by subcutaneous injection every weeksemaglutide (Ozempic, 1 MG/DOSE,) 2 MG/1.5ML solution pen-injector Indications: Type 2 diabetes mellitus without complication, without long-term current use of insulin (CMS/HCC) Inject 1 mg under theskin 1 (one) time per week 3 mL 5 04/28/2024 ActiveSemaglutide, 2 MG/DOSE, 8 MG/3ML solution pen-injector (5 sources)Start: 04-07-2025 End: 28-39-9487jqykfi 2 mg by subcutaneous injection every weekSemaglutide, 2 MG/DOSE, 8 MG/3ML solution pen-injector Indications: Type 2 diabetes mellitus with diabetic nephropathy, without long-term current use of insulin (HCC) Inject 2 mg under the skin 1 (one) time per week 9 mL 04/07/2025 07/16/2025 Active traMADol hydrochloride 50 mg oral tablet (20 sources)Opioid AgonistStart: 33-00-6453hgyz 1 tablet by mouth four times daily as neededtraMADol (Ultram) 50 MG tablet Indications: Other chronic pain TAKE ONE TABLET BY MOUTH FOUR TIMES A DAY NEEDED 120 tablet 02/22/2023 Active valACYclovir 1000 mg oral tablet (3 sources)Herpesvirus Nucleoside Analog DNA Polymerase Inhibitor, Herpes Simplex Virus Nucleoside Analog DNA Polymerase Inhibitor, Herpes Zoster Virus Nucleoside Analog DNA Polymerase InhibitorStart: 09-11-2024 End: 95-63-3876mjng 1 tablet by mouth in the morning, [...] anxious mood; Translations: [Adjustment disorder with anxiety]Onset: 867631-71-0317FesghzlErrxpms disorders (8 sources)Anxiety; Translations: [Anxiety disorder, unspecified]06-18-2024 ChronicAsthma (20 sources)Asthma; Translations: [Unspecified asthma, uncomplicated]Onset: 755918-36-8253WupbnefCxiwftk kidney disease (20 sources)Chronic kidney disease stage 3A ; Translations: [Stage 3a chronic kidney disease (HCC)]Onset: 704656-64-5191ZjpcriiYrvyfny obstructive pulmonary disease and bronchiectasis (20 sources)Emphysematous bronchitis; 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]Onset: 12-26-2022 Resolved: 704816-13-8425YaktjsyNmxkbrfbtckvw of surgical procedures or medical care (20 sources)Postsurgical menopause; Translations: [Asymptomatic postprocedural ovarian failure]Onset: 564504-75-8148EacpgvbJygbrnqt mellitus with complications (20 sources)Renal disorder due to type 2 diabetes mellitus; Translations: [Type 2 diabetes mellitus with diabetic nephropathy]Onset: hronic Diabetes mellitus without complication (20 sources)Type 2 diabetes mellitus; Translations: [Type 2 diabetes mellitus without complications]Onset: 843474-56-4626SfqdmfoTuamdfsvq of lipid metabolism (20 sources)Hyperlipidemia; Translations: [Hyperlipidemia, unspecified]Onset: 415592-91-0547EmenefoLorurizjip disorders (2 sources)Gastroesophageal reflux disease without esophagitis; Translations: [Gastro-esophageal reflux disease without esophagitis]18-81-1342IfickwqMazqgauwu hypertension (20 sources)Hypertensive disorder; Translations: [Essential (primary) hypertension]Onset: 200054-48-9140GwcciknXfolefjb; including migraine (20 sources)Migraine without aura, not refractory ; Translations: [Migraine without aura, not intractable, without status migrainosus]Onset: 12-26-2022 Resolved: 691032-39-3804WksikygIgwjwnhgniofr and screening for infectious disease (2 sources)Vaccination needed; Translations: [Encounter for immunization] 21-65-9241DxauwpxrDmtylwbfcl disorders (20 sources)Menopausal flushing; Translations: [Menopausal and female climacteric states]Onset: 407425-27-8664UqqghngPoku disorders (20 sources)Depressive disorder; Translations: [Depression]Onset: 12-26-2022 03-93-0927QdmtdrpSthop gastrointestinal disorders (20 sources)Irritable bowel syndrome with diarrhea; Translations: [Irritable bowel syndrome with diarrhea]Onset: 102953-70-4098BifjfcwWuiye inflammatory condition of skin (20 sources)Psoriasis; Translations: [Psoriasis, unspecified]Onset: 12-26-2022 61-67-3566UukwbpbMxsvm nervous system disorders (1 source)Other chronic pain; Translations: [OTHER CHRONIC PAIN]Onset: 41-60-0238HmymkwwVhbcy nervous system disorders (20 sources)Chronic pain; Translations: [Other chronic pain]Onset: 12-26-2022 95-21-4217NcyogesInvsa nervous system disorders (20 sources)Left-sided piriformis syndrome; Translations: [Lesion of sciatic nerve, left lower limb]Onset: 437560-52-5385CbstegkKzskb nervous system disorders (20 sources)Sciatic nerve lesion; Translations: [Lesion of sciatic nerve, unspecified lower limb]Onset: 440461-39-0477RyvsymgJnokq nervous system disorders (2 sources)Tremor; Translations: [Tremor, unspecified]75-22-2233XbkwdotxLrvfg nutritional; endocrine; and metabolic disorders (20 sources)Obesity caused by energy imbalance; Translations: [Morbid (severe) obesity due to excess calories]Onset: 620118-28-8338DymcohcFmfat nutritional; endocrine; and metabolic disorders (1 source)Morbid obesity; Translations: [Morbid (severe) obesity due to excess calories]Onset: 250492-69-0545LehknvpUnhoi screening for suspected conditions (not mental disorders or infectious disease) (2 sources)Patient encounter status; Translations: [Encounter for screening mammogram for malignant neoplasm of breast]07-23-7041EzjmvqyyOsqob upper respiratory disease (20 sources)Allergic rhinitis; Translations: [Allergic rhinitis, unspecified] Onset: 950383-75-9547NhjvvdyNevxm upper respiratory disease (2 sources)Allergic rhinitis due to pollen; Translations: [Allergic rhinitis due to pollen]54-94-7534IeghsmyHlphj upper respiratory infections (2 sources)Pansinusitis; Translations: [Chronic pansinusitis]51-59-0761Skqurdf Peripheral and visceral atherosclerosis (2 sources)Atherosclerosis of aorta; Translations: [Atherosclerosis of aorta] 26-45-6825JchenzcUiiqrgnvz and history of mental health and substance abuse codes (2 sources)Ex-smoker; Translations: [Personal history of nicotine dependence] 00-50-4161ZtvczjrzDhtogfewlon; intervertebral disc disorders; other back problems (20 sources)Spondylosis without myelopathy or radiculopathy, lumbar region; Translations: [Sacroiliitis, not elsewhere classified]Onset: 31-56-5991Rwimhxq Spondylosis; intervertebral disc disorders; other back problems (13 sources)Lumbago with sciatica, left side; Translations: [Intervertebral disc disorders with radiculopathy, lumbar region]Onset: 399229-64-0656Ctupolsf Unclassified (1 source)CONTACT W/AND (SUSP) EXPOS COVID-19; Translations: [CONTACT W/AND (SUSP) EXPOS COVID-19]Onset: 03-89-5741Fpkqdketaovm (1 source)ACUTE COUGH; Translations: [ACUTE COUGH]Onset: 29-48-6953Voozhxdsgtpj (3 sources)LOW BACK PAIN, UNSPECIFIED; Translations: [LOW BACK PAIN, UNSPECIFIED]Onset: 67-92-2666Vxrlitdliazn (5 sources)Patient on antidepressant monitoring planOnset: 066710-83-0400 Unclassified (5 sources)Baseline PHQ-9Onset: 488398-27-9710Bdzsw infection (2 sources)Herpes zoster without complication; Translations: [Zoster without complications]21-73-9969Sjzkcegt Past or Other Problems Problem ClassificationProblemDateDocumented DateEpisodic/ChronicComa; stupor; and brain damage (20 sources)Daytime somnolence; Translations: [Somnolence]Onset: 12-26-2022 30-20-4630AogkcjlgAvkngmcjsa associated with dizziness or vertigo (20 sources)Dizziness; Translations: [Dizziness and giddiness]Onset: 04-09-2023 41-55-3962InjcduroWdnsijxy mellitus without complication (20 sources)Prediabetes; Translations: [Prediabetes]Onset: 12-26-2022 Resolved: 589471-60-1044TbrizpblZtsom acquired deformities (20 sources)Leg length inequality; Translations: [Unequal limb length (acquired), unspecified site]Onset: 268513-16-7548RjymekvoTybha acquired deformities (3 sources)Unequal limb length (acquired), unspecified site; Translations: [Unequal leg length (acquired)]Onset: 854089-45-0511WjuswvrwWkwbm aftercare (1 source)Other roasterman (current) drug therapy; Translations: [OTH HALF-WAY CURRENT DRUG THERAPY]Onset: 36-20-3439PqkkkusdYljpw aftercare (20 sources)Long-term current use of inhaled steroid; Translations: [USP (current) use of inhaled steroids]Onset: 213228-15-2423QgcuyyrnVgqlx circulatory disease (20 sources)Elevated blood-pressure reading without diagnosis of hypertension; Translations: [Elevated blood-pressure reading, without diagnosis of hypertension]Onset: 12-26-2022 Resolved: 618273-70-1573OqdpgtcbKuybh circulatory disease (20 sources)Elevated blood pressure; Translations: [Elevated blood-pressure reading, without diagnosis of hypertension]Onset: 12-26-2022 Resolved: 533010-55-3359CspfpfrsHhuzk connective tissue disease (5 sources)Other muscle spasm; Translations: [OTHER MUSCLE SPASM]Onset: 72-83-8146PqwpxlhwOxtet diseases of kidney and ureters (12 sources)Cyst of kidney; Translations: [Cyst of kidney, acquired]Onset: 597393-99-0822LmfwxvtsYmbze lower respiratory disease (1 source)Wheezing; Translations: [WHEEZING]Onset: 64-49-9580CekztazoMxenb lower respiratory disease (20 sources)Lung field abnormal; Translations: [Other nonspecific abnormal finding of lung field]Onset: 959048-75-1246QlxxraauEpnpq nutritional; endocrine; and metabolic disorders (20 sources)Obese class I; Translations: [Obesity (BMI 30.0-34.9)]Onset: 12-26-2022 Resolved: 820158-82-9032XvivvgiFpctr nutritional; endocrine; and metabolic disorders (20 sources)Body mass index 30+ - obesity; Translations: [Body mass index (BMI) 37.0-37.9, adult]Onset: 04-14-2024 Resolved: 340147-60-4986FudobvhRkdplump codes; unclassified (4 sources)Pain, unspecified; Translations: [PAIN UNSPECIFIED]Onset: 09-07-2022 EpisodicResidual codes; unclassified (1 source)Acquired absence of other specified parts of digestive tract; Translations: [ACQ ABSENCE OTH PART DIGESTV TRACT]Onset: 55-80-1609Nocdzory Residual codes; unclassified (1 source)Acquired absence of both cervix and uterus; Translations: [ACQUIRED ABSENCE BOTH CERVIX AND UTERUS]Onset: 86-15-4558IkwjkmkvBwnxvtel codes; unclassified (1 source)Acquired absence of ovaries, unilateral; Translations: [ACQUIRED ABSENCE OVARIES UNILATERAL]Onset: 11-85-7999FqmklstfMxoltjnb codes; unclassified (20 sources)Flushing; Translations: [Flushing]Onset: 12-26-2022 Resolved: 578974-57-4183JjkykgabShjxvjqeg-rrkilxi disorders (20 sources)Nicotine dependence, cigarettes, uncomplicated; Translations: [Smoker]Onset: 05-17-2022 Resolved: 807961-73-4304NbhniitBfzglqirwrvj (1 source)LOW BACK PAIN, UNSPECIFIED; Translations: [LOW BACK PAIN, UNSPECIFIED] Onset: 05-16-2022 Results Test NameValueInterpretationReference RangeFacilityXR LUMBAR SPINE MIN 4Von 20-99-7358[place] [id number] XRay Report Signed Patient: DHARA DALLAS MR#: [id number] : 1970 Acct:[id number] Age/Sex: 54 / F ADM Date: 04/23/25 Loc: RAD Attending Dr: Tyra Graves [employer] Ordering Physician: Tyra Graves NP Date of Service: 04/23/25 Procedure(s): XR lumbar spine min 4V Accession Number(s): [id number] cc: SANDY YOUSSEF Anna NP [place] [id number] Patient Name: DHARA DALLAS MRN: [id number] date: 1970 Sex: F Assigned Patient Location: Current Patient Location: Accession/Order Number: [id number] Exam Date: 04/23/2025 08:55 Report Date: 04/23/2025 [...] Jr., D.O. 04/23/2025 9:48 AM Dictation Location: [place] [address] Electronically authenticated by: [id number] Y Date: 04/23/2025 09:48 Dictated By: Rafiq Rai M.D. Signed By: 04/23/2550 DD/ 7 TD/TT: Integration Software Developer:TBHRadiology, Radiologist, - 04/23/2025 The [place] [id number] XRay Report Signed Patient: DHARA DALLAS MR#: [id number] : 1970 Acct:[id number] Age/Sex: 54 / F ADM Date: 04/23/25 Loc: RAD Attending Dr: Tyra Graves NP Ordering Physician: Tyra Graves NP Date of Service: 04/23/25 Procedure(s): XR lumbar spine min 4V Accession Number(s): [id number] cc: SANDY YOUSSEF ; Tyra Graves NP The [place] [address] Patient Name: DHARA DALLAS MRN: [id number] date: 1970 Sex: F Assigned Patient Location: Current Patient Location: Accession/Order Number: [id number] Exam Date: 04/23/2025 08:55 Report Date: 04/23/2025 [...] Jr., D.O. 04/23/2025 9:48 AM Dictation Location: [place] [address] Electronically authenticated by: [id number] Y Date: 04/23/2025 09:48 Dictated By: Rafiq Rai M.D. Signed By: 04/23/25949 DD/ 7 TD/TT: Integration Software Developer: SAMREEN HealthcareRadiology Study observation (narrative)NOMS HealthcareXR LUMBAR SPINE MIN 4VOrdered By: Radiologist Radiology on 20-33-3142[facility] Work Phone: XR SACROILIAC JOINTon 87-36-4135[address] [address] XRay Report Signed Patient: DHARA DALLAS MR#: [id number] : 1970 Acct:[id number] Age/Sex: 54 / F ADM Date: 04/23/25 Loc: [facility] Attending Dr: Tyra Graves NP Ordering Physician: Tyra Graves NP Date of Service: 04/23/25 Procedure(s): XR sacroiliac joint ELIANE Accession Number(s): [id number] cc: SANDY YOUSSEF ; Tyra Graves NP [address] [id number] Patient Name: DHARA DALLAS MRN: [id number] date: 1970 Sex: F Assigned Patient Location: Current Patient Location: Accession/Order Number: [id number] Exam Date: 04/23/2025 08:55 Report Date: 04/23/2025 [...] Jr., D.O. 04/23/2025 9:47 AM Dictation Location: [place] [address] Electronically authenticated by: [id number] Y Date: 04/23/2025 09:47 Dictated By: Rafiq Rai M.D. Signed By: 04/23/2549 DD/ TD/TT: Integration Software Developer:TBHRadiology, Radiologist, - 04/23/[address] [address] XRay Report Signed Patient: DHARA DALLAS MR#: [id number] : 1970 Acct:[id number] Age/Sex: 54 / F ADM Date: 04/23/25 Loc: [facility] Attending Dr: Tyra Graves NP Ordering Physician: Tyra Graves NP Date of Service: 04/23/25 Procedure(s): XR sacroiliac joint ELIANE Accession Number(s): [id number] cc: SANDY YOUSSEF Anna NP The [place] [id number] Patient Name: DHARA DALLAS MRN: [id number] date: 1970 Sex: F Assigned Patient Location: Current Patient Location: Accession/Order Number: [id number] Exam Date: 04/23/2025 08:55 Report Date: 04/23/2025 09:47 At the request of: TYRA GRAVES NP Procedure: XR sacroiliac joint ELIAEN SI joints 3 views. Reason for exam: [...] Jr., D.O. 04/23/2025 9:47 AM Dictation Location: [place] [address] Electronically authenticated by: [id number] Y Date: 04/23/2025 09:47 Dictated By: Rafiq Rai M.D. Signed By: 04/23/2549 DD/ 6 TD/TT: Integration Software Developer: NOMCorine HealthcareRadiology Study observation (narrative)NOMS HealthcareXR SACROILIAC JOINTOrdered By: Radiologist Radiology on 69-53-8478NDBMTexas County Memorial Hospital Work Phone: Laboratory - Hematology and Cell countson 04-07-2025 HbA1c (Bld) [Mass fraction]5.5 %[facility] HospitalNo Panel Informationon 04-07-2025 Interpretation and review of laboratory resultsNoAurora St. Luke's Medical Center– MilwaukeeALBUMIN, RANDOM URINE W/CREATININEon 40-44-7254XOFLSVR, URINE0.4 mg/dL NormalSee Note:Quest DiagnosticsComment on above:Result Comment: Reference Range: Reference Range Not establishedPerformed By: #### 6517 #### [facility] [address], [address] [place] [address] Dressing Room Porter: Christiano Escobar MDALBUMIN/CREATININE RATIO, RANDOM URINE9 mg/g [...] category.Performed By: #### 6517 #### [facility] [address], [address] [place] [address] Dressing Room Porter: Christiano Escobar MDCreatinine (U) [Mass/Vol]47 mg/wMGgtief25-013 Quest DiagnosticsComment on above:Performed By: #### 6517 #### [facility] [address], [address] [place] [address] Dressing Room Porter: Christiano Escobar MDMicroalbumin/Creatinine ratio panel (U)on 99-21-3360Rwplaae DL <= 20 mg/L (U) [Mass/Vol]0.4 mg/dLSee Note:[facility] [employer] Comment on above:Reference Range: Reference Range Not established Albumin/Creatinine (U) [Mass ratio]9NINFTexas County Memorial HospitalComment on above: The ADA defines abnormalities in [...] category. Creatinine (U) [Mass/Vol]47 mg/dL20 - 275 mg/dLTexas County Memorial HospitalPerfirst hospital wy[facility] Organization Information Site ID: [id number] Name: [employer] [facility] Address: [address] [place] [address], [address] [place] [phone] Director: Christiano Escobar MDGrant Regional Health Center CHEST WO CONon 26-61-9169[place] [address] [place] Scan Report Signed Patient: DHARA DALLAS MR#: [id number] : 1970 Acct:[id number] Age/Sex: 53 / F ADM Date: 04/18/24 Loc: CT Attending Dr: Melisa Blanc D.O. Ordering Physician: Melisa Blanc D.O. Date of Service: 04/18/24 Procedure(s): CT chest wo con Accession Number(s): [id number] cc: SANDY YOUSSEF [place] [id number] Patient Name: DHARA DALLAS MRN: [id number] date: 1970 Sex: F Assigned Patient Location: CT Current Patient Location: CT Accession/Order Number: [id number] Exam Date: 04/18/2024 07:40 Report Date: 04/21/2024 [...] Signed By: 04/21/24 1328 DD/ 1325 TD/TT: Integration Software Developer:AMINAHRadiology, Radiologist, - 04/21/2024 [place] [address] CT Scan Report Signed Patient: DHARA DALLAS MR#: [id number] : 1970 Acct:[id number] Age/Sex: 53 / F ADM Date: 04/18/24 Loc: CT Attending Dr: Melisa Blanc D.O. Ordering Physician: Melisa Blanc D.O. Date of Service: 04/18/24 Procedure(s): CT chest wo con Accession Number(s): [id number] cc: SANDY YOUSSEF [place] [id number] Patient Name: DHARA DALLAS MRN: [id number] date: 1970 Sex: F Assigned Patient Location: CT Current Patient Location: CT Accession/Order Number: [id number] Exam Date: 04/18/2024 07:40 Report Date: 04/21/2024 [...] Signed By: 04/21/24 1328 DD/ 1325 TD/TT: Integration Software Developer: SAMREEN HealthcareRadiology Study observation (narrative)NOM HealthcareCT CHEST WO CONOrdered By: Radiologist Radiology on 67-88-1621RQ[facility] Work Phone: mm TOMOSYNTHESIS SCREENING BIon 06-17-[address] [address] Mammography Report Signed Patient: DHARA DALLAS MR#: [id number] : 1970 Acct:[id number] Age/Sex: 53 / F ADM Date: 04/18/24 Loc: MAMMO Attending Dr: SANDY YOUSSEF Ordering Physician: SANDY YOUSSEF Results: Date of Service: 04/18/24 Follow Up: Procedure(s): MM tomosynthesis screening BI Accession Number(s): [id number] cc: SANDY YOUSSEF Patient Name: DHARA DALLAS MR#: [id number] : 1970 Exam Date: 04/18/2024 Ordering Doctor: [...] lung cancer at age 78. LOCATION: [facility] BREAST COMPOSITION: There are scattered [...] Signed By: 04/18/24 1211 DD/ 1210 TD/TT: Integration Software Developer:TBHRadiology, RadiologistMD - 04/18/2024 The [place] [id number] Mammography Report Signed Patient: DHARA DALLAS MR#: [id number] : 1970 Acct:[id number] Age/Sex: 53 / F ADM Date: 04/18/24 Loc: MAMMO Attending Dr: SANDY YOUSSEF Ordering Physician: SANDY YOUSSEF Results: Date of Service: 04/18/24 Follow Up: Procedure(s): MM tomosynthesis screening BI Accession Number(s): [id number] cc: SANDY YOUSSEF Patient Name: DHARA DALLAS MR#: [id number] : 1970 Exam Date: 04/18/2024 Ordering Doctor: [...] lung cancer at age 78. LOCATION: [facility] BREAST COMPOSITION: There are scattered [...] Signed By: 04/18/24 1211 DD/ 1210 TD/TT: Integration Software Developer: SAMREEN HealthcareRadiology Study observation (narrative)NOMS HealthcareMM TOMOSYNTHESIS SCREENING BIOrdered By: Radiologist Radiology on 47-91-0847KVTLTexas County Memorial Hospital Work Phone: Laboratory - Hematology and Cell countson 04-14-2024 HbA1c (Bld) [Mass fraction]5.7 %[facility] Panel Informationon 04-14-2024 Interpretation and review of laboratory resultsNormalAshe Memorial HospitalCREATININEon 54-95-9226Viedgyiyae [Mass/Vol]1.03 mg/dLCritically high 0.55-1.02[facility] Medical CenterComment on above:Performed By: #### CREA #### [facility] [address] [place] [address] [address] Radha WoodGFR-AF SLOVAK>60Normal>=60The [facility] HospitalComment on above:Performed By: #### CREA #### [facility] [address] [place] [address] [address] Radha WoodGFR-NON AF EIPTNBEL07 mL/min/1.01h9Nhrgfikxul low>=60The [facility] HospitalComment on above:Performed By: #### CREA #### [facility] [address] [place] [address] [address] Radha GalindoXR CHEST 2 Von 11-25-1055JT CHEST 2 VEXAM: XR CHEST 2 V HISTORY: Pneumonia COMPARISON: None. TECHNIQUE: PA and lateral views of the chest. FINDINGS: The cardiomediastinal silhouette is normal. Airspace disease of the lingula. There is no pneumothorax. No pleural effusion is noted. The osseous structures are intact. IMPRESSION: Airspace disease of the lingula. Electronically authenticated by: AURORA HERNANDEZ Date: 2022-12-27 11:35[facility] City HospitalMRI LSPINE WO CONon 07-98-3635AVG LSPOWDERLY WO CONEXAMINATION: MRI LSPINE WO CON HISTORY: [...] Electronically authenticated by: BRANDON CRUZ Date: 2022-12-15 12:14NoLima City HospitalRESPIRATORY PANEL PLUSon 79-46-2984JypibwelsuVcz detectedNormal NOT DETECTEDThe [facility] HospitalComment on above:Performed By: #### RSPLUS ####[facility] [address] [place] [address]DrInna Joyce ParapertusisNot detectedNormalNOT DETECTEDThe [facility] Comment on above:Performed By: #### RSPLUS ####[facility] Cynnicppfr[address] [place] [address]DrInna Kiser. PertussisNot detected NormalNOT DETECTEDThe [facility] HospitalComment on above:Performed By: #### RSPLUS ####[facility] [address] [place] [address]Dr. Radha MateoChlamydia PneumoniaeNot detectedNormalNOT DETECTEDThe [facility] HospitalComment on above:Performed By: #### RSPLUS ####[facility] Vqih[address]ct[address] [place], [place] [address]Dr. Judyricky Galindo Coronavirus 229ENot detectedNormalNOT DETECTEDThe [facility] HospitalComment on above:Performed By: #### RSPLUS ####[facility] Oytqfcpifc[address] [place], [place] [address]Dr. Radha ChangCoronavirus JAN7Iak detectedNormalNOT DETECTEDThe [facility] HospitalComment on above:Performed By: #### RSPLUS ####[facility] Anspyzgmxf[address] [place], [place] [address]Dr. Radha ChangCoronavirus LT97Xtd detectedNormalNOT DETECTEDThe [facility] Comment on above:Performed By: #### RSPLUS ####[facility] Denfrvfiwp[address] [place], [place] [address]Dr. Radha ChangCoronavirus EM63Lvh detected NormalNOT DETECTEDThe [facility] HospitalCominsight surgical hospital on above:Performed By: #### RSPLUS ####[facility] Qorrslfynw[address] [place], [place] [address]Dr. Radha GalindoInfluenza A H1Not detectedNormalNOT DETECTEDThe [facility] HospitalComment on above:Performed By: #### RSPLUS ####[facility] G[address]ydqrrphh[address] [place], [place] [address]Dr. Radha GalindoInfluenza A H1 2009Not detectedNormalNOT DETECTEDThe [facility] HospitalComment on above: Performed By: #### RSPLUS ####[facility] Cigatvuovl[address] [place], [place] [address]Dr. Judylan MateoInfluenza A H3Not detectedNormalNOT DETECTEDThe [facility] HospitalComment on above:Performed By: #### RSPLUS ####[facility] Npukzhsuuc[address] [place], [place] [address]Dr. Radha ChangInfluenza BNot detectedNormalNOT DETECTEDThe [facility] HospitalComment on above:Performed By: #### RSPLUS ####[facility] Pyvpzyjmaf[address] [place], [place] [address]Dr. Radha GalindoMetapneumovirusNot detectedNormal NOT DETECTEDThe [facility] HospitalComment on above:Performed By: #### RSPLUS ####[facility] X[address]uumjspw[address] [place] [address]Dr. Radha GalindoMycoplas. PneumoniaeNot detectedNormalNOT DETECTEDThe [facility] HospitalComment on above:Performed By: #### RSPLUS ####[facility] Oadknjgsjm[address] [place], [place] [address]Dr. Radha GlaindoParainfluenza 1Not detectedNormalNOT DETECTEDThe [facility] HospitalComment on above:Performed By: #### RSPLUS ####[facility] Lppxguulwv[address] [place], [place] [address]Dr. Radha GalindoParainfluenza 2Not detectedNormalNOT DETECTEDThe [facility] HospitalComment on above:Performed By: #### RSPLUS ####[facility] Inrgkatqsu3[address] [place], [place] [address]Dr. Radha Galindo Parainfluenza 3Not detectedNormalNOT DETECTEDThe [facility] HospitalComment on above:Performed By: #### RSPLUS ####[facility] Fniwqqzdbl[address] [place], [place] [address]Dr. Radha GalindoParainfluenza 4Not detectedNormalNOT DETECTEDThe [facility] HospitalComment on above:Performed By: #### RSPLUS ####[facility] Jihlojvgcz[address] [place], [place] [address]Dr. Radha GalindoRhino/EnterovirusNot detectedNormalNOT DETECTEDThe [facility] Comment on above:Performed By: #### RSPLUS ####[facility] Uqeitagmjm[address] [place], [place] [address]Dr. Radha Arzola Header 1RESPIRATORY PANEL: VIRUSESNormalThe [facility] HospitalComment on above:Performed By: #### RSPLUS ####[facility] Wagjfmpsum[address] [place], [place] [address]Dr. Yilan ChangRP2 Header 2RESPIRATORY PANEL: BACTERIASalem City HospitalCominsight surgical hospital on above:Performed By: #### RSPLUS ####[facility] [address]grdon[address] [place] [address]Dr. Radha GalindoRSVNot detectedNormalNOT DETECTEDThe [facility] on above:Performed By: #### RSPLUS ####[facility] [address] [place] [address]Dr. Radha Buitrago-CoV-2 (COVID-19) RNA SUSAN+probe Ql (Unsp spec)Not detectedNormalNOT DETECTEDThe [facility] HospitalCominsight surgical hospital on above:Performed By: #### RSPLUS ####[facility] Xbkekfnnzj[address] [place] [address]Dr. Radha GalindoXR CHEST 2 Von 70-86-9975MX CHEST 2 VEXAMINATION: XR CHEST 2 V [...] Electronically authenticated by: BRANDON CRUZ Date: 2022-09-07 12:18[facility] AUTO DIFFon 54-93-0737YLDT #0.1 103/ulNormal0.0-0.1[facility] on above:Performed By: #### CBC ####[facility] Rvletptmcv[address] [place], [place] [address]Dr.Radha GalindoBasophils/100 WBC (Bld)0.6 %Normal0.2-2.0[facility] on above:Performed By: #### CBC ####[facility] Lvitfybimv[address] [place], [place] [address]Dr.Radha ChangEO #0.2 103/ulNormal0.0-0.7The [facility] HospitalComment on above:Performed By: #### CBC ####[facility] Oewrmzxzyz[address] [place], [place] [address]Dr.Radha ChangEosinophils/100 WBC (Bld)1.3 %Normal 0.9-7.0The [facility] HospitalComment on above:Performed By: #### CBC ####[facility] Koocejeuck[address] [place], [place] [address]Dr.Radha Galindo Erythrocyte distribution width (RBC) [Ratio]14.6 %Wsposh20.0-15.0The [facility] HospitalComment on above:Performed By: #### CBC ####[facility] Drodredpqh[address] [place], [place] [address]Dr.Radha ChangHematocrit (Bld) [Volume fraction]45.1 %Tjywqw41.0-48.0The [facility] HospitalComment on above:Performed By: #### CBC ####[facility] Laztyakkfb38[address] [place], [place] [address]Dr.Radha ChangHemoglobin (Bld) [Mass/Vol]14.9 g/dL Xksvvm35.0-16.0The [facility] HospitalComment on above:Performed By: #### CBC ####[facility] Xghaigqjfk[address] [place], [place] [address]Dr. Radha ChangIG #0.06 10e3/ulCritically high0.00-0.03The [facility] HospitalComment on above:Performed By: #### CBC ####[facility] Gbhuzerbzi[address] [place], [place] [address]Dr.Radha ChangIG %0.4 %Normal0.0-0.5The [facility] HospitalComment on above:Performed By: #### CBC ####[facility] Gxizaihkws[address] [place], [place] [address]Dr.Radha ChangLYMPH #3.7 103/ulNormal1.2-3.8The [facility] HospitalComment on above:Performed By: #### CBC ####[facility] Hpwfbychfl[address] [place], [place] [address]Dr. Yilan ChangLymphocytes/100 WBC (Bld)27.7 %Ekzdcu17.5-60.0The [facility] Comment on above:Performed By: #### CBC ####[facility] [address]odahml[address] [place] [address]Dr.Radha GalindoMANUAL DIFF REQNONormalThe [facility] HospitalComment on above:Performed By: #### CBC ####[facility] Lpltplqvbf[address] [place], [place] [address]Dr.Radha GalindoH (RBC) [Entitic mass]31.6 wsYjyill90.7-34.0The [facility] HospitalComment on above: Performed By: #### CBC ####[facility] Sbnathbrqi[address] [place], [place] [address]Dr.Radha GalindoHC (RBC) [Mass/Vol]33.0 g/dLNormal 29.9-35.2The [facility] HospitalComment on above:Performed By: #### CBC ####[facility] Pfxkdcpiem[address] [place], [place] [address]Dr. Radha GalindoV (RBC) [Entitic vol]95.6 tXEeekcn94.0-99.0The [facility] Comment on above:Performed By: #### CBC ####[facility] Tgjpunviva[address] [place], [place] [address]Dr.Radha GalindoMONO #0.7 103/ulNormal0.3-0.8 The [facility] HospitalComment on above:Performed By: #### CBC ####[facility] Nrcodfophf[address] [place], [place] [address]Dr.Radha Galindo Monocytes/100 WBC (Bld)5.3 %Normal1.7-12.0The [facility] HospitalComment on above: Performed By: #### CBC ####[facility] Knspfcrlqz[address] [place], [place] [address]DrInnaRadha GalindoNEUT #8.8 103/ulCritically high1.4-6.5 The [facility] HospitalComment on above:Performed By: #### CBC ####[facility] [address] [place] [address]Dr.Radha Galindo Neutrophils/100 WBC (Bld)64.7 %Cgsbro34.0-75.0The [facility] HospitalComment on above:Performed By: #### CBC ####[facility] [address]uhl[address] [place] [address]Dr.Radha GalindoPlatelet mean volume (Bld) [Entitic vol] 9.1 fLCritically low9.5-13.5The [facility] HospitalComment on above:Performed By: #### CBC ####[facility] Vvbfmorskw[address] [place] [address]Dr.Radha GalindoPLT318 103/guLnazcv827-300One [facility] HospitalComment on above:Performed By: #### CBC ####[facility] Yxcvsqmbak[address] [place], [place] [address]Dr.Radha GalindoRBC4.72 106/ulNormal4.20-5.40The [facility] HospitalComment on above:Performed By: #### CBC ####[facility] Bmqhuoaqcl[address] [place], [place] [address]Dr.Radha GalindoWBC13.5 103/ul Critically high4.0-11.0The [facility] HospitalComment on above:Performed By: #### CBC ####[facility] Devjnwlcle[address] [place], [place] [address]Dr. Radha GalindoCRPon 37-54-7472SLJ5.3 mg/dLNormal<=1.0The [facility] HospitalComment on above:Performed By: #### BMP, CRP #### [facility] [address] [place] [address] Dr. Radha GalindoPROF CHEM 8 (BAS METB)on 10-22-2779Lbuxt gap [Moles/Vol]13.7 mmol/LNormalThe [facility] HospitalComment on above:Performed By: #### BMP, CRP #### [facility] [address] [place] [address] Dr. Radha GalindoCalcium [Mass/Vol]9.5 mg/dLNormal8.5-10.1The [facility] Comment on above:Performed By: #### BMP, CRP #### [facility] [address] [address] [address] Radha GalindoChloride [Moles/Vol]104 mmol/PHukuej80-880Mvl [facility] Comment on above:Performed By: #### BMP, CRP #### [facility] [address] [address] [address] Radha GalindoCO2 [Moles/Vol]27.0 mmol/CLltkqd74.0-32.0The [facility] Comment on above:Performed By: #### BMP, CRP #### [facility] [address] [address] [address] Radha GalindoCreatinine [Mass/Vol]1.01 mg/dLNormal0.55-1.02The [facility] HospitalComment on above:Performed By: #### BMP, CRP #### [facility] [address] [address] [address] Garcia ChangEGFR-AF SLOVAK>60Normal>=60The [facility] HospitalComment on above:Performed By: #### BMP, CRP #### [facility] [address] [address] [address] Radha WoodGFR-NON AF JNAQYMNP81 mL/min/1.76h9Jrdcjqqwci low>=60The [facility] HospitalComment on above:Performed By: #### BMP, CRP #### [facility] [address] [address] [address] Radha GalindoGlucose [Mass/Vol]137 mg/dLCritically truv98-638Cck [facility] HospitalComment on above:Performed By: #### BMP, CRP #### [facility] [address] [address] [address] Radha GalindoPotassium [Moles/Vol]3.7 mmol/LNormal3.5-5.1The [facility] Comment on above:Performed By: #### BMP, CRP #### [facility] [address] [address] [address] Radha GalindoSodium [Moles/Vol]141 mmol/DWxbqyj982-622Bbp [facility] Comment on above:Performed By: #### BMP, CRP #### [facility] [address] [address] [address] Radha Lim nitrogen [Mass/Vol]11.0 mg/dLNormal7.0-18.0The [facility] HospitalComment on above:Performed By: #### BMP, CRP #### [facility] [address] [address] [address] Radha Lim nitrogen/Creatinine [Mass ratio]10.9 mg/mgNormalThe [facility] HospitalComment on above:Performed By: #### BMP, CRP #### [facility] [address] [address] [address] Radha Soliz RATE WESTERGRENon 34-77-1177ZCL RATE18 mm/hrNormal<=30The [facility] HospitalComment on above:Performed By: #### SEDR ####[facility] [address] [place] [address]Dr. Radha Dickersonvid-19 PCR (CVDTBH)on 54-88-8137TKOY-CoV-2 (COVID-19) RNA SUSAN+probe Ql (Unsp spec)Not detectedNormalNOT DETECTEDThe [facility] HospitalCominsight surgical hospital on above:Result Comment: This test is not yet approved or cleared by the [place] FDA. When there are no FDA-approved or cleared tests available, and other criteria are met, FDA can make tests available under an emergency access mechanism called an Emergency Use Authorization (EUA). The EUA for this test is supported by the [place] of Health and Human Service's (HHS's) declaration [...] consistent with SARS-CoV-2.Performed By: #### CVDTBH #### [facility] [address] [place] [address] Radha Chadwickd-19 PCR ([facility])on 87-90-8237QDPX-CoV-2 (COVID-19) RNA SUSAN+probe Ql (Unsp spec)Not detectedNormalNOT DETECTEDThe [facility] Comment on above:Result Comment: This test is not yet approved or cleared by the [place] FDA. When there are no FDA-approved or cleared tests available, and other criteria are met, FDA can make tests available under an emergency access mechanism called an Emergency Use Authorization (EUA). The EUA for this test is supported by the [place] of Health and Human Service's (HHS's) declaration [...] consistent with SARS-CoV-2.Performed By: #### CVDTBH #### [facility] [address] [place] [address] Radha Hammeralbumin (with Creat)on 58-02-7553wTYO<1.2LowNorthern Swisher Medical SpecialistComment on above:Result Comment: Unable to calculate mALB/Crea ratio, mALB is <1.2 mg/dL mALB reference range not established.Performed By: #### mALBC #### [facility] [address], [place] [id number] mg/aPUddfbn76-959Czyalyjf [facility] [employer] Operator Comment on above:Performed By: #### mALBC #### [facility] [address], [place] [id number] Blood Count with Auto Diffon 58-01-5338Rrrvilqqk (Bld) [#/Vol]0.07 10*3/uLNormal0.00-0.20[facility] SpecialistComment on above:Performed By: #### CMP, CBCAD, VITD, LIPD #### [facility] [address] [place], [place] [id number]/100 WBC (Bld)0.6 %[facility] SpecialistComment on above:Performed By: #### CMP, CBCAD, VITD, LIPD #### [facility] [address] [place], [place] [id number] (Bld) [#/Vol]0.17 10*3/uLNormal0.02-0.50[facility] SpecialistComment on above:Performed By: #### CMP, CBCAD, VITD, LIPD #### [facility] [address], [place] [id number]/100 WBC (Bld)1.4 %[facility] SpecialistComment on above:Performed By: #### CMP, CBCAD, VITD, LIPD #### [facility] [address], [place] [id number] distribution width (RBC) [Ratio]14.1 %Normal 11.0-15.0[facility] SpecialistComment on above:Performed By: #### CMP, CBCAD, VITD, LIPD #### [facility] [address], [place] [id number] (Bld) [Volume fraction]46.1 %Csfrns87.0-47.0 [facility] SpecialistComment on above:Performed By: #### CMP, CBCAD, VITD, LIPD #### [facility] [address], [place] [id number] (Bld) [Mass/Vol]15.6 g/uFSpcb15.6-15.5[facility] SpecialistComment on above:Performed By: #### CMP, CBCAD, VITD, LIPD #### [facility] [address], [place] [id number] (Bld) [#/Vol]3.0 10*3/uLNormal0.9-3.9No[facility] SpecialistComment on above:Performed By: #### CMP, CBCAD, VITD, LIPD #### [facility] [address], [place] [id number]/100 WBC (Bld)25.9 %NormalNoTriHealth SpecialistComment on above:Performed By: #### CMP, CBCAD, VITD, LIPD #### [facility] [address], [place] [id number] (RBC) [Entitic mass]31.0 ymLntjjn63.0-33.0No[facility] SpecialistComment on above:Performed By: #### CMP, CBCAD, VITD, LIPD #### [facility] [address], [place] [id number] (RBC) [Mass/Vol]33.8 g/mZThtpnp64.0-36.0No[facility] SpecialistComment on above:Performed By: #### CMP, CBCAD, VITD, LIPD #### [facility] [address], [place] [id number] (RBC) [Entitic vol]92 sBNerqww13-283Btinxsqm [facility] SpecialistComment on above:Performed By: #### CMP, CBCAD, VITD, LIPD #### [facility] [address], [place] [id number] (Bld) [#/Vol]0.8 10*3/uLNormal0.2-0.9No[facility] SpecialistComment on above:Performed By: #### CMP, CBCAD, VITD, LIPD #### [facility] [address], [place] [id number]/100 WBC (Bld)6.8 %NormalUniversity Hospitals [facility] Center SpecialistComment on above:Performed By: #### CMP, CBCAD, VITD, LIPD #### [facility] [address], [place] [id number] (Bld) [#/Vol]7.6 10*3/uLNormal1.5-7.8[facility] SpecialistComment on above:Performed By: #### CMP, CBCAD, VITD, LIPD #### [facility] [address], [place] [id number]/100 WBC (Bld)64.4 %NormalNortMary [facility] Hospital SpecialistComment on above:Performed By: #### CMP, CBCAD, VITD, LIPD #### [facility] [address], [place] [id number] mean volume (Bld) [Entitic vol]9.50 fLNormal 7.50-12.50[facility] SpecialistComment on above:Performed By: #### CMP, CBCAD, VITD, LIPD #### [facility] [address], [place] [id number] (Bld) [#/Vol]304 10*3/bVCvskkh973-203Srffykog [facility] SpecialistComment on above:Performed By: #### CMP, CBCAD, VITD, LIPD #### [facility] [address], [place] [id number] (Bld) [#/Vol]5.03 10*6/uLNormal3.90-5.20[facility] SpecialistComment on above:Performed By: #### CMP, CBCAD, VITD, LIPD #### [facility] [address], [place] [id number]-FM08.6 kWWpwxlo57.0-50.0No[facility] Specialist Comment on above:Performed By: #### CMP, CBCAD, VITD, LIPD #### [facility] [address], [place] [id number] (Bld) [#/Vol]11.8 10*3/uLHigh3.8-11.0No[facility] SpecialistComment on above:Performed By: #### CMP, CBCAD, VITD, LIPD #### [facility] [address], [place] [id number] Metabolic Panelon 33-01-6452Sgxexvi [Mass/Vol] 4.9 g/dLNormal3.6-5.1[facility] SpecialistComment on above:Performed By: #### CMP, CBCAD, VITD, LIPD #### [facility] [address], [place] [id number]/Globulin [Mass ratio]2.3 {ratio}Normal1.0-2.5No[facility] SpecialistComment on above:Performed By: #### CMP, CBCAD, VITD, LIPD #### [facility] [address], [place] [id number] [Catalytic activity/Vol]82 U/SDqncoj31-289Tjtsxuep [facility] SpecialistComment on above:Performed By: #### CMP, CBCAD, VITD, LIPD #### [facility] [address], [place] [id number] [Catalytic activity/Vol]44 U/LHigh6-33No[facility] SpecialistComment on above:Result Comment: 06/29/2021 Female reference range changed.Performed By: #### CMP, CBCAD, VITD, LIPD #### [facility] [address], [place] [id number] gap [Moles/Vol]17 mmol/NCcaocc65-22Ecysbxyk [facility] SpecialistComment on above:Result Comment: Effective 08/04/2019 reference range changed.Performed By: #### CMP, CBCAD, VITD, LIPD #### [facility] [address], [place] [id number] [Catalytic activity/Vol]27 U/LNormal9-34No[facility] SpecialistComment on above:Performed By: #### CMP, CBCAD, VITD, LIPD #### [facility] [address], [place] [id number] [Mass/Vol]0.97 mg/dLNormal0.30-1.20[facility] SpecialistComment on above:Performed By: #### CMP, CBCAD, VITD, LIPD #### [facility] [address], [place] [id number]/CREA14 RatioNormal6-22[facility] Bias Cutting Machine Operator Comment on above:Performed By: #### CMP, CBCAD, VITD, LIPD #### [facility] [address], [place] [id number] [Mass/Vol]10.3 mg/dLHigh8.6-10.2[facility] SpecialistComment on above:Performed By: #### CMP, CBCAD, VITD, LIPD #### [facility] [address], [place] [id number] [Moles/Vol]101 mmol/TIncfju98-973Vodihrsn [facility] SpecialistComment on above:Performed By: #### CMP, CBCAD, VITD, LIPD #### [facility] [address], [place] [id number] [Moles/Vol]25 mmol/UZaazbb51-69Yzujtnxe [facility] SpecialistComment on above:Performed By: #### CMP, CBCAD, VITD, LIPD #### [facility] [address], [place] [id number] [Mass/Vol]1.0 mg/dLNormal0.6-1.4[facility] SpecialistComment on above:Performed By: #### CMP, CBCAD, VITD, LIPD #### [facility] [address], [place] [id number] mL/min/1.18j6Qqbyvi>60[facility] SpecialistComment on above:Performed By: #### CMP, CBCAD, VITD, LIPD #### [facility] [address], [place] [id number] mL/min/1.84j0Qfbgvc>60[facility] SpecialistComment on above:Performed By: #### CMP, CBCAD, VITD, LIPD #### [facility] [address], [place] [id number] (S) [Mass/Vol]2.1 g/dLNormal1.9-3.7[facility] SpecialistComment on above:Performed By: #### CMP, CBCAD, VITD, LIPD #### [facility] [address], [place] [id number] [Mass/Vol]120 mg/uZSfgk68-16Mwvdiwzn [facility] SpecialistComment on above:Result Comment: For FASTING Glucose --- ADA reference ranges: Normal 65-99 mg/dl Prediabetes 100-125 Diabetes >/= 126Performed By: #### CMP, CBCAD, VITD, LIPD #### [facility] [address], [place] [id number] [Moles/Vol]4.4 mmol/LNormal3.5-5.5No[facility] SpecialistComment on above:Performed By: #### CMP, CBCAD, VITD, LIPD #### [facility] [address], [place] [id number] [Mass/Vol]7.0 g/dLNormal6.1-8.1[facility] SpecialistComment on above:Performed By: #### CMP, CBCAD, VITD, LIPD #### [facility] [address], [place] [id number] [Moles/Vol]139 mmol/HMsvtqz587-549Pidvwhst [facility] SpecialistComment on above:Performed By: #### CMP, CBCAD, VITD, LIPD #### [facility] [address], [place] [id number] nitrogen [Mass/Vol]13 mg/dLNormal7-25No[facility] SpecialistComment on above:Performed By: #### CMP, CBCAD, VITD, LIPD #### [facility] [address], [place] [id number] A1Con 13-63-9286DJC131.24NormalNortMary [facility] Hospital SpecialistComment on above:Performed By: #### A1C #### [facility] [address], [place] [id number] (Bld) [Mass fraction]6.2 %High4.0-6.0[facility] SpecialistComment on above:Performed By: #### A1C #### [facility] [address], [place] [id number] Panelon 40-10-7626Aozyjifcyiv [Mass/Vol]243 mg/dLHigh 125-200[facility] SpecialistComment on above:Result Comment: Low risk < 200mg/dL Borderline risk 201-239 mg/dl High risk > or equal to 240Performed By: #### CMP, CBCAD, VITD, LIPD #### [facility] [address], [place] [id number] in HDL [Mass/Vol]58 mg/dLNormal>40[facility] SpecialistComment on above:Result Comment: High Cardiovascular Risk HDL <40 mg/dL Low Cardiovascular Risk HDL > or equal to 60 mg/dlPerformed By: #### CMP, CBCAD, VITD, LIPD #### [facility] [address], [place] [id number] in LDL [Mass/Vol]154 mg/dLNormalNortMary [facility] Hospital SpecialistComment on above:Result Comment: LDL ATP III CLASSIFICATION LDL less than 100 mg/dl Optimal LDL 100-129 mg/dl Near or above optimal LDL 130-159 Borderline high LDL 160-189 High LDL greater than 189 mg/dl Very HighPerformed By: #### CMP, CBCAD, VITD, LIPD #### [facility] [address], [place] [id number] in VLDL [Mass/Vol]31 mg/dLNormalNoTriHealth SpecialistComment on above:Performed By: #### CMP, CBCAD, VITD, LIPD #### [facility] [address], [place] [id number].total/Cholesterol in HDL [Mass ratio]4 {ratio} NormalNortbanner desert medical centern [facility] SpecialistComment on above:Performed By: #### CMP, CBCAD, VITD, LIPD #### [facility] [address], [place] [id number] [Mass/Vol]154 mg/pDMmlj62-688Lxulbyji [facility] SpecialistComment on above:Result Comment: TRIG ATPIII CLASSIFICATIONS TRIG less than 150 mg/dl Normal TRIG 150-199 mg/dl Borderline High TRIG 200-500 mg/dl High TRIG greather than 500 mg/dl Very HighPerformed By: #### CMP, CBCAD, VITD, LIPD #### [facility] [address], [place] [id number] D 25-OHon 61-98-6373OXS D 25 OH73 ng/mlNormal>29 [facility] SpecialistComment on above:Result Comment: Vitamin D Status Deficiency <20 ng/mL Insufficiency 20-29 ng/mL Optimal 30-100 ng/mL Possible Toxicity >=150 ng/mLPerformed By: #### CMP, CBCAD, VITD, LIPD #### [facility] [address], [place] [id number] 34-74-6021VZVQMfwkwlpeo (ORQ) DHARA DALLAS ([id number]) 1970 F Date Time Provider Department 03/08/21 NAINA OLIVA ORQ During your visit today, we recorded the following information about you: Francisco J Ahuja [facility] 03/08/2021 4:45 PM Signed Patient called requesting a refill for Diclofenac Sod ER 100 mg tab. To send to [facility] at [phone] fax [phone] Francisco J Ahuja [facility] 03/17/2021 1:01 PM Signed Spoke to patient, she stated that got theOral Voltaren Oral Voltaren from her family doctor. 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 for abnormal vaginal bleeding, abnormal [...] has degenerative di (more content not included)...Normal [facility] OUTSIDE DICOM IMPORT -NBNRon 45-47-3368SL OUTSIDE DICOM IMPORT -NBNRImages were obtained outside of [facility] [id number] Children's HospitalXR OUTSIDE CD DICOM IMPORT -NBNRImages were obtained outside of [facility] [id number] Children's Hospital Vital Signs Date TimeVital SignValuePerforming JrrikwgaeJocyavcg78-23-9379 09:27-0400Body .1 cmRjoo Youssef MD Work Phone: [facility] HospitalVzlvgqagzs06-42-1532 09:27-0400Body mass index (BMI) [Ratio]36.11 kg/s9LadohSandy Youssef MD Work Phone: [phone] [facility] State HospitalZmvtqiqqca36-46-2207 09:27-0400Body rxbfka66.43 kgSandy Youssef MD Work Phone: [phone] HospitalVdkyleybtz08-76-2815 09:27-0400Diastolic blood szsmemce46 mm[Hg]Sandy Youssef MD Work Phone: [phone] HospitalAornmxejlh34-67-0909 09:27-0400Heart rate90 /min Sandy Youssef MD Work Phone: [phone] HospitalYbalmsfflp98-45-9766 09:27-1736BaP0% (BldA) [Mass fraction]96 %Sandy Youssef MD Work Phone: [phone] HospitalQvrxbarbrj10-15-8977 09:27-0400Systolic blood sooopmot680 mm[Hg]Sandy Youssef MD Work Phone: [phone] HospitalSeqebxkzud82-55-2521 09:28-0500Body .1 cmJanel GOLDMAN Work Phone: [phone] HospitalFcuajohjkk22-32-2830 09:28-0500Body mass index (BMI) [Ratio]34.71 kg/b9IdgkzJanel GOLDMAN Work Phone: [phone] State HospitalAatahkzewq00-45-3910 09:28-0500Body uytzrh33.62 kgJanel GOLDMAN Work Phone: [phone]-NOE[facility] HospitalAclnkysqrw02-38-8033 09:28-0500Diastolic blood swiejqaz95 mm[Hg]Janel GOLDMAN Work Phone: [phone] HospitalAgsnpqepzr88-35-9026 09:28-0500Heart rate82 /min Janel Hemmer PA Work Phone: NO[facility] HospitalKpwdszxabw48-81-7134 09:28-0500Respiratory rate16 /minJanel Hemmer PA Work Phone: NO[facility] HospitalIifvqwzpvj86-77-4383 09:28-9267KoB5% (BldA) [Mass fraction]95 %Janel Hemmer PA Work Phone: NO[facility] HospitalCoydfieaen93-09-2590 09:28-0500Systolic blood gqoejysn729 mm[Hg]Janel Evansmer PA Work Phone: NO[facility] HospitalAfcvlozatv58-93-9272 08:33-0500Body aerggx079.1 Thu Oconnell CUSTOMER SALES CONSULTANT Work Phone: NOE[facility] HospitalUjqldbktrc36-40-2115 08:33-0500Body mass index (BMI) [Ratio]33.48 kg/x8GrrujbMadison Oconnell CUSTOMER SALES CONSULTANT Work Phone: [phone] HospitalVsvjggmvvj84-26-6499 08:33-0500Body azhabk28.26 kgMadison Oconnell CUSTOMER SALES CONSULTANT Work Phone: NO[facility] HospitalIwjvutacgl36-78-1754 08:33-0500Diastolic blood rtpeubij42 mm[Hg]Madison Oconnell CUSTOMER SALES CONSULTANT Work Phone: NO[facility] HospitalTjczgoniqu58-78-7519 08:33-0500Heart vdtj507 /min Madison Oconnell CUSTOMER SALES CONSULTANT Work Phone: NO[facility] HospitalPkzafcsooa41-15-1833 08:33-0500Respiratory rate18 /minSchrissy Oconnell CUSTOMER SALES CONSULTANT Work Phone: NO[facility] HospitalLlatnynoqr03-69-3875 08:33-3330YcB8% (BldA) [Mass fraction]98 %Madison Oconnell CUSTOMER SALES CONSULTANT Work Phone: NO[facility] HospitalGxnxurcalj12-84-2445 08:33-0500Systolic blood cqgldjce154 mm[Hg]Madison Oconnell CUSTOMER SALES CONSULTANT Work Phone: NO[facility] HospitalMikrrclkej78-48-7743 08:30-0400Body rkxsne106.1 cmKaren Hemmer PA Work Phone: NO[facility] HospitalWjwhtmnsnb04-06-7060 08:30-0400Body mass index (BMI) [Ratio]34.91 kg/v9Kqofe Hemmer PA Work Phone: NO[facility] HospitalIwmhwqqrpn33-55-3729 08:30-0400Body .17 kgBenitoen Hemmer PA Work Phone: NO[facility] HospitalLtwkxglvyx99-26-9041 08:30-0400Diastolic blood mm[Hg]Janel Hemmer PA Work Phone: NO[facility] HospitalUfioqxnchq92-11-4231 08:30-0400Heart rate99 /min Janel Hemmer PA Work Phone: NO[facility] HospitalHjdavfagpv23-96-7679 08:30-0400Respiratory rate16 /minBenitoen Hemmer PA Work Phone: NO[facility] HospitalFdvvueeely32-09-3671 08:30-2398KiY8% (BldA) [Mass fraction]93 %Janel Hemmer PA Work Phone: NO[facility] HospitalOgkqclbefn58-13-0870 08:30-0400Systolic blood pfnlbisq757 mm[Hg]Janel Hemmer PA Work Phone: NO[facility] HospitalNkyuighxjy09-39-4748 13:06-0400Body zywghz159.1 Zoya Youssef MD Work Phone: NO[facility] HospitalZntyceltjk39-03-2958 13:06-0400Body mass index (BMI) [Ratio]35.11 kg/c6TmfqkSandy Youssef MD Work Phone: NO[facility] HospitalMtajenpchr48-38-9011 13:06-0400Body .71 kgSandy Youssef MD Work Phone: [place] [address]Hhkffggkij93-10-4978 13:06-0400Diastolic blood grfxinyj57 mm[Hg]Sandy Youssef MD Work Phone: [place] [address]Zmrsjeougq64-05-0844 13:06-0400Heart rate84 /min Sandy Youssef MD Work Phone: [facility] HospitalPddayxgfgb88-99-8795 13:06-2191LbY0% (BldA) [Mass fraction]93 %Sandy Youssef MD Work Phone: [facility] HospitalVpksugqxox25-48-7134 13:06-0400Systolic blood sdedeosi437 mm[Hg]Sandy Youssef MD Work Phone: [facility] HospitalQahmhudzcv91-98-3397 09:24-0400Body cpwuwx863.1 cm[facility]08-24-2024 09:24-0400Body mass index (BMI) [Ratio]35.2 kg/f1PuvgmvkrlOhio Valley Hospital08-24-2024 09:24-0400Body tbpydhtbxlz65 [degF][facility]08-24-2024 09:24-0400Body calqwi62.17 kgOhio Valley Hospital08-24-2024 09:24-0400Diastolic blood rjlziakc95 mm[Hg][facility]08-24-2024 09:24-0400 Heart rate74 /[facility]08-24-2024 09:24-0400 Respiratory rate18 /[facility]08-24-2024 09:24-0400 SaO2% (BldA) [Mass fraction]94 %[facility]08-24-2024 09:24-0400Systolic blood yyihlopn314 mm[Hg][facility] Encounters Encounter DateEncounter TypeCare ProviderFacilityStart: 05-18-2025 End: 85-81-9038RjhkcjQvavw M Alda MD Work Phone: [facility] MedinceComment on above:Tremors of nervous system; Anxiety; Migraine without aura and without status migrainosus, not intractableStart: 05-11-2025 End: 59-60-8651gaynxkvyykJkigvqo Vytautas Giedraitis MDFacility:VIKI Schultz Start: 04-23-2025 End: 39-56-9359Xqkxazwwd Result EncounterGeneric External Data ProviderNOMS External Department UnsolicitedStart: 04-23-2025 End: 52-18-1441Uoyoqfrvg Result EncounterGeneric External Data ProviderNOMS External Department UnsolicitedStart: 04-07-2025 End: 65-27-5418Ejckcn outpatient visit 25 minutesSandy Youssef MD Work Phone: [facility] NewtoneComment on above:Spinal stenosis of lumbar region, unspecified whether neurogenic claudication present (Primary Dx); Type 2 diabetes mellitus with diabetic nephropathy, without long-term current use of insulin (HCC); Major depressive disorder, single episode, mild ; Essential hypertensionStart: 04-07-2025 End: 42-41-9254fsatrxqcleIPYAM M ALDANot AvailableStart: 03-15-2025 End: 51-18-8245OwbdwvDognc M Alda MD Work Phone: [facility] CampusnceComment on above:Anxiety Start: 11-23-2024 End: 89-56-0729OteyfyCoksj M Alda MD Work Phone: [facility] CI FMComment on above:Tremors of nervous system; AnxietyStart: 10-13-2024 End: 85-13-9321wtamxwpjljQWJMG M ALDANot AvailableStart: 09-11-2024 End: 84-84-2740Cbtwgu Kayy GOLDMAN Work Phone: [facility] FMStart: 09-11-2024 End: 45-18-5011Jdvrpd Kayy GOLDMAN Work Phone: [facility] FMStart: 09-11-2024 End: 16-78-4260Crzhrijm Result EncounterJanel GOLDMAN Work Phone: [facility] External Department UnsolicitedStart: 09-11-2024 End: 03-60-8903Gjspmv outpatient visit 15 minutesJanel GOLDMAN Work Phone: [facility] FMComment on above:Herpes zoster without complication (Primary Dx); Former smoker; Diabetic nephropathy associated with type 2 diabetes mellitus (HCC) ([facility]/HCC) Start: 09-11-2024 End: 01-41-5762ihtjvvqcfhNCNXPHuyen Montaño AvailableStart: 08-12-2024 End: 03-52-3666Gijkab Nadya Oconnell CUSTOMER SALES CONSULTANT Work Phone: [facility] FMStart: 08-12-2024 End: 84-80-3981Fjvmdo Nadya Oconnell CUSTOMER SALES CONSULTANT Work Phone: [facility] CI FMStart: 08-12-2024 End: 98-99-5404Tkbbpo outpatient visit 25 minutesShbianca Oconnell CUSTOMER SALES CONSULTANT Work Phone: [phone] CI FMComment on above:Pansinusitis, unspecified chronicity (Primary Dx); Type 2 diabetes mellitus with other specified complication (CMS/HCC); Type 2 diabetes mellitus without complications (CMS/HCC); 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); Morbid (severe) obesity due to excess calories (CMS/HCC); Chronic obstructive pulmonary disease, unspecified (CMS/HCC); Other specified chronic obstructive pulmonary disease (CMS/HCC)Start: 08-12-2024 End: 29-53-0859btgaahntnvTHOPWT M SHIVELYNot AvailableStart: 08-11-2024 End: 62-25-4663YmbvnvGdazf M Alda MD Work Phone: [facility] FMComment on above:AnxietyStart: 07-14-2024 End: 26-72-4668NawfwtFmrtjh Rikki AFRICASHE CI FMComment on above:AnxietyStart: 06-18-2024 End: 70-34-9684TuipzzQsbui M Alda MD Work Phone: [facility] CI FMComment on above:AnxietyStart: 04-28-2024 End: 01-69-0476Iepvhk flowsGill GOLDMAN Work Phone: [facility] CI FMStart: 04-28-2024 End: 09-82-6242Vdqwzg Kayy Crowder PA Work Phone: [facility] CI FMStart: 04-28-2024 End: 73-62-3692Dsnbnuj encounter statusJanel GOLDMAN Work Phone: [phone] Work Phone: Start: 04-28-2024 End: 98-02-4277Msekjdiv preventive med est patient 40-64yrsKara GOLDMAN Work [...] Hot flashes due to menopause; Hypertriglyceridemia (CMS/HCC); 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; Migraine without aura and without status migrainosus, not intractable (CMS/HCC); Piriformis syndrome of left side; Psoriasis (CMS/HCC); Pure hypercholesterolemia (CMS/HCC); Smoker; Surgical menopause; Need for vaccinationStart: 04-28-2024 End: 38-43-4203jjmytuqkstHEKML M HEMMERNot AvailableStart: 04-21-2024 End: 17-48-7048Mhhzxbqdt Result EncounterGeneric External Data ProviderNOMS External Department UnsolicitedStart: 04-21-2024 End: 59-24-2900Sndjyeufh Result EncounterGeneric External Data ProviderNOMS External Department UnsolicitedStart: 04-18-2024 End: 43-24-1911Dewjwgfud Result Desi Youssef MD Work Phone: noms External Department UnsolicitedStart: 04-18-2024 End: 41-27-5279Pkenvhnto Result EncounterSandy Youssef MD Work Phone: [facility] External Department UnsolicitedStart: 04-14-2024 End: 06-00-8419Saqkyd flowsheetSandy Youssef MD Work Phone: [facility] CI FMStart: 04-14-2024 End: 53-57-5896Kviqbn flowsWin Youssef MD Work Phone: [facility] CI FMStart: 04-14-2024 End: 28-13-2878Zjtifg outpatient visit 25 minutesSandy Youssef MD Work Phone: NOGP CI FMComment on above:Diabetic nephropathy associated with [...] Gastroesophageal reflux disease without esophagitisStart: 04-14-2024 End: 04-42-2439yfadxlwngkPVIMV M ALDANot AvailableStart: 03-22-2024 End: 61-48-6189ynjatyiqrkAtxhhbqirUpper Valley Medical Center Work Phone: Start: 03-22-2024 End: 55-17-8127Qbqojan encounter [facility] Work Phone: Start: 63-53-6036rognpgigyzUH RUGEN ALDAFacility:H1 Start: 12-15-2022 End: 45-54-4582szcutjzxsbMDBCLRR HALKER .Facility:Q2Bpncq: 12-08-2022 End: 96-23-6366snptdtxgjjXXZAHNIHKGYZ LAKSHMIPATHY .Facility:K9Rniqy: 09-07-2022 End: 35-76-1344zhpbrzqrtqZM RUGEN ALDAFacility:B9Hyamg: 09-07-2022 End: 81-48-3988xkmaexqqicZQ AMELIA S WATTS .Facility:I3Chhua: 06-01-2022 End: 12-32-8343fenguwfujjPLJC MCGILL .Facility:D3Nwkhm: 05-16-2022 End: 24-05-7213bsngdcjuybPLAAY PARKERFacility:Q1Egsbg: 04-06-2022 End: 46-54-5048bnpczfahatWHWO MCGILL .Facility:R2Jqppm: 16-15-6231Smmyyuioi for preprocedural laboratory examinationDR AMELIA S WATTS .[facility] Start: 03-07-2022 End: 04-41-3371pukzbckmkqXT AMELIA S WATTS .Facility:T6Eijuu: 03-06-2022 End: 94-25-6223hjjfrmzzopZR AMELIA S WATTS .Facility:M0Fubjb: 03-06-2022 End: 84-37-1208Vhkzdncii for preprocedural laboratory examinationDR AMELIA S WATTS .Facility:Q4Illah: 02-28-2022 End: 68-87-0172spixxolpqnPN AMELIA S WATTS .Facility:X9Pplwp: 02-24-2022 End: 03-96-6504cfrkvfrzlvMJ AMELIA S WATTS .Facility:C2Idgrn: 01-26-2022 End: 98-59-6812fodzwpfpsiDJHR MCGILL .Facility:A7Ahzyn: 01-17-2022 End: 69-75-1640njfxthejjbUB RUGEN ALDAFacility:H1 Procedures DateProcedureProcedure DetailPerforming ClinicianStart: 20-53-1040WO LUMBAR SPINE MIN 4VGeneric External Data ProviderStart: 31-86-6937DT SACROILIAC JOINT Generic External Data ProviderStart: 63-39-4309Nvknylylgc glycosylated g0hIgsbeSandy Youssef MD Work Phone: Start: 22-99-2708Nsmqxgudeo test result abnormal Abnormal laboratory test resultSandy Youssef MD Work Phone: Start: 36-51-8260Cqmdv albumin quantitativeJanel GOLDMAN Work Phone: Start: 64-53-7538FZ CHEST WO CONGeneric External Data ProviderStart: 56-29-5719WA TOMOSYNTHESIS SCREENING Milla Youssef MD Work Phone: Start: 20-99-3984AlqzetgdtjjAuedx Hemmer PA Work Phone: Start: 47-68-1383Ikmhovulpf glycosylated s6uAyfbgSandy Youssef MD Work Phone: Start: 12-26-2022 End: 62-49-0503Ppfyeri of total hysterectomyH/O total hysterectomySandy Youssef MD Work Phone: Start: 18-21-8668YgqmhxylijqYsjmz Alda MD Work Phone: Start: 06-85-5100OnqkryurijdDbnzv Alda MD Work Phone: Start: 11-11-2015H/O: hysterectomyHistory of hysterectomySandy Youssef MD Work Phone: H/O: hysterectomyHistory of hysterectomyJanel GOLDMAN Work Phone: Plan of Treatment DateCare ActivityDetailAuthorStart: 05-44-3724Qtsslifou for malignant neoplasm of colonNOMS HealthcareStart: 69-17-1400Mbhin screening for proteinDiabetes: Urine Protein ScreeningNOMS HealthcareStart: 07-13-2025 End: 99-01-2567Gycqbez encounter pgwnmrued64/15/2025 8:15 AM EST Office Visit [facility] [place] [facility]illod[facility] [address] [address] [place] [id number] Sandy Youssef MD [address] [place] [address] [facility] [place] Ram MedinceStart: 07-07-2025 Hemoglobin A1c measurementDiabetes: Hemoglobin F9OLFFB HealthcareStart: 25-69-6651Mjdiq screening for proteinDiabetes: Urine Protein ScreeningNOAR HealthcareStart: 04-20-2025 End: 87-19-9467Reggcox encounter procedureNOMS CI FMStart: 50-98-2250Plpbsghlj for malignant neoplasm of breastMammogramNOAR HealthcareStart: 16-52-9062EEMPJ- 19 Vaccine ( season)COVID-19 Vaccine ( season)[facility] HealthcareStart: 91-33-4200Iyhjzienh vaccinationNOAR HealthcareStart: 01-13-2025 Hemoglobin A1c measurementDiabetes: Hemoglobin Q7BRPCG HealthcareStart: 10-13-2024 End: 27-23-3909Onqyvvk encounter kljyenell39/17/2025 9:00 AM EDT Office Visit [facility] [address] [place] [address] Sandy Youssef MD [address] [place] [address] [facility] CI FMStart: 09-11-2024 End: 96-37-4837Trlucvamcdzj/Creatinine panel in random UrineMicroalbumin / creatinine urine ratio Lab Routine Diabetic nephropathy associated with type 2 diabetes mellitus (HCC) (CMS/HCC) Expected: 09/11/2024 (Approximate), Expires: 09/11/2025[facility] Work Phone: Comment on above:Expected: 09/11/2024 (Approximate), Expires: 09/11/2025Start: 09-11-2024 End: 10-27-3358Espnamh encounter ydxelkvyq01/13/2025 9:30 AM EST Office Visit [facility] [address] [place] [address] Janel Crowder PA [address] [place] [address] ArrivedNOMS CI FMComment on above:ArrivedStart: 08-12-2024 End: 07-55-5733Hpnzheq encounter procedureNOMS CI FMComment on above:Arrived Start: 60-77-9378Eralymuhkj A1c measurementDiabetes: Hemoglobin J0ZUJMN HealthcareStart: 04-28-2024 End: 03-13-8735Pocjoye encounter wpvdovxtt47/30/2024 8:30 AM EDT Office Visit [facility] [address] [place] [phone] Janel Crowder PA [address] [place] [address] ArrivedNOAR CI FMComment on above:ArrivedStart: 04-14-2024 End: 50-83-1269OMF panel - Blood by Automated countCBC Lab Routine Essential hypertension (CMS/HCC) Type 2 diabetes mellitus with other specified compl ication, without long-term current use of insulin (CMS/HCC) Diabetic nephropathy associated with type 2 diabetes mellitus (HCC) (CMS/HCC) Pure hypercholesterolemia (CMS/HCC) Expected: 04/14/2024 (Approximate), Expires: 04/14/2025NOAR HealthcareComment on above:Expected: 04/14/2024 (Approximate), Expires: 04/14/2025Start: 04-14-2024 End: 85-05-4712Sokpayzzpxupq metabolic 2000 panel - Serum or PlasmaComprehensive metabolic panel Lab Routine Essential hypertension (CMS/HCC) Type 2 diabetes mellituswith other specified complication, without long-term current use of insulin (CMS/HCC) Diabetic nephropathy associated with type 2 diabetes mellitus (HCC) (CMS/HCC) Pure hypercholesterolemia (CMS/HCC)Expected: 04/14/2024 (Approximate), Expires: 04/14/2025NOAR HealthcareComment on above:Expected: 04/14/2024 (Approximate), Expires: 04/14/2025Start: 04-14-2024 End: 39-23-6888Qtukp 1996 panel - Serum or PlasmaLipid panel Lab Routine Essential hypertension (CMS/HCC) Type 2 diabetes mellitus with other specified complication, without long-term current use of insulin (CMS/HCC) Diabetic nephropathy associatedwith type 2 diabetes mellitus (HCC) (CMS/HCC) Pure hypercholesterolemia (CMS/HCC) Expected: 04/14/2024 (Approximate), Expires: 04/14/2025NOAR HealthcareComment on above:Expected: 04/14/2024 (Approximate), Expires: 04/14/2025Start: 04-14-2024 End: 79-35-5015QB Breast - bilateral ScreeningBilateral screening mammogram Imaging Routine Encounter for screening mammogram for malignant neoplasm of breast Expected: 04/14/2024, Expires: 06/14/2025[facility] Work Phone: Comment on above:Expected: 04/14/2024, Expires: 06/14/2025Start: 04-14-2024 End: 82-31-9951Zwnyoll encounter iehevfqoy09/16/2024 1:00 PM EDT Office Visit [facility] [address] [facility] [address] [place] [address] Sandy Youssef MD [address] [facility] [address] [place] [address] ArrivedNOMS CI FMComment on above:ArrivedStart: 04-09-2024 Urine screening for proteinDiabetes: Urine Protein ScreeningNOAR Healthcare Start: 59-26-7563Fienzlhvx vaccinationInfluenza Vaccine (#1)[facility] Start: 87-71-3793Adbupvljgr A1c measurementDiabetes: Hemoglobin O4QFDHB HealthcareStart: 20-47-2211Crdizpbcu for malignant neoplasm of breastMammogram NOM HealthcareStart: 58-73-1697Dxylxuesa B Vaccines (1 of 3 - 19+ 3-dose series)Hepatitis B Vaccines (1 of 3 - 19+ 3-dose series)NOM HealthcareStart: 56-12-6231Hdscoyqsaroo Vaccine: Pediatrics (0 to 5 Years) and At-Risk Patients (6 to 64 Years) (1 of 2 - PCV)Pneumococcal Vaccine: Pediatrics (0 to 5 Years) and At-Risk Patients (6 to 64 Years) (1 of 2 - PCV)NOM HealthcareStart: 67-40-1554Lzcidmks screeningDiabetes: Retinopathy ScreeningNOAR HealthcareStart: 93-79-9337VFeK/Tdap/Td Vaccines (1 - Tdap)DTaP/Tdap/Td Vaccines (1 - Tdap)NOM HealthcareStart: 38-24-5882AWK Vaccines (1 of 1 - Standard series)MMR Vaccines (1 of 1 - Standard series)[facility] HealthcareStart: 21-00-0282Ngdknkwdq for malignant neoplasm of colonMCKAY-[facility]E [facility] Healthcare Immunizations Immunization DateImmunizationNotesCare VoyryfmbGwiaztzq87-19-9182xhxhhi vaccine- recombinant adjuvanted (Shingrix) 50 MCG/0.5ML vaccineJanel GOLDMAN Work Phone: [phone] HospitalQtcagggpmd74-01-3757lpmrkbufdsau conjugate 20- valent (Prevnar 20) 0.5 ML vaccineJanel GOLDMAN Work Phone: [phone] HospitalNajsittgkt11-36-6935veyrwdmim, injectable, quadrivalent, preservative freeSandy Youssef MD Work Phone: [phone] HospitalPdmefsvffu09-62-3616Ooyjcqv Bivalent Booster VaccinationSandy Youssef MD Work Phone: [phone] [address] [place], [place] [address]Gyxrewqxle25-67-1605RERD-DRK-6 (COVID-19) vaccine, mRNA, spike protein, LNP, bivalent, preservative free, 30 mcg/0.3 mL dose, maria esther-sucrose formulationSandy Youssef MD Work Phone: [phone] HospitalLaznkssyhw62-84-6943vsbboajzm virus vaccine, unspecified formulationSandy Youssef MD Work Phone: [phone] [place], [place] [address]Hcqlzpfdic77-55-6097Igggpbmzu, injectable, Madin Ayana Canine Kidney, preservative free, quadrivalentSandy Youssef MD Work Phone: [phone] [place] [address] Payers DatePayer CategoryPayerPolicy [id number] Health InsuranceHEALTHSCOPE Member Subscriber Plan / Payer (Effective 2022-Present) Name: Dhara Dallas ID: [id number] Relation to Subscriber: Self Name: Dhara Dallas Payer ID: Not on file Type: Not on file Address: [place] [id number] 1.2.840.844668.1.13.693.2.7.3.665[id number] 2.16.840.1.051241.3.57[id number] 2.16840.1.136900.3.57[id number] 2.16.840.1.498532.3.57[id number] 2.840.1.515733.3.57[id number] 2.840.1.347735.3.57[id number] 2.840.1.984230.3.57[id number] 2.840.1.791668.3.57[id number] 2.840.1.479324.3.57[id number] 2.840.1.855875.3.57[id number] 2.840.1.352766.3.57[id number] 2.840.1.894437.3.57[id number] 2.840.1.851332.3.57[id number] 2.840.1.008330.3.579.[id number] 2.16.840.1.747060.3.579.[id number] 2.16.840.1.198560.3.57[id number] 2.16.840.1.411015.3.579.2.[id number] 2.16.840.1.560632.3.57[id number] 2.16.840.1.672081.3.579.[id number] 2.16.840.1.353958.3.57[id number] 2.16.840.1.517672.3.579.[id number] 2.16.840.1.539189.3.579.2.64702-23-4915Liyrigr128[id number] Social History DateTypeDetailFacilityStart: 09-57-8389Gybzeis smoking status NHISSmoker (finding)[facility]: 23-43-6693H[facility]: 01-01-2023 End: 34-55-9754Qtcklms smoking status NHISSmokes tobacco dailyNOMS Healthcare Work Phone: Start: 66-17-1844Snvzsgt of tobacco useCigarette SmokerNOMS HealthcareStart: 01-01-2023 End: 41-65-3815Bxzumqz use and exposureSmokeless tobacco non-userNOMS Healthcare Start: 04-14-2024 End: 74-16-7692Hgqrhuvfn beverage intakeCurrent drinker of alcohol (finding)[facility]S HealthcareStart: 10-22-2023 End: 38-10-0720Pshowtp of Social functionNOMS HealthcareStart: 10-22-2023 End: 79-79-4251Dltzba connection and isolation panelMCKAY-DEE HOSPITAL CENTER HealthcareStart: 80-40-4355Nx a typical week, how many times do you talk on the telephone with family, friends, or neighbors?Patient declinedNOAR HealthcareAre you now , , , , never or living with a partner? MarriedMCKAY-DEE HOSPITAL [facility]ENTER HealthcareIn the past 12 months, was there a time when you were not able to pay the mortgage or rent on time?NoNOMS HealthcareStart: 05-12-2023 Alcohol Comment1-2 drinks monthly or less, caffeine yes coffee,sodaNOMS HealthcareStart: 46-88-3085Hsz assigned at birthNot on fileMCKAY-DEE HOSPITAL CENTER HealthcareStart: 71-56-9683Fnoixrn smoking status NHISEx-smokerMCKAY-DEE HOSPITAL CENTER Healthcare Goals DatePatient GoalDesired Activity/StatePersonal health goal Functional Status ThxoVnnyqqbftdIfgfzdOkozzfvi59-06-4180Fowfhda Health Questionnaire 2 item (PHQ- 2) [Reported][facility] HospitalOdtxtbaodv25-34-7091Bnkrwfz Health Questionnaire 2 item (PHQ- 2) [Reported][facility] Clinical Notes 12-22-2020 to 04-07-2025 Note Date & UzuuAccaUlnaytzd11-85-9056 History of Present illness Narrative* Sandy Yosusef MD - 04/07/2025 9:49 AM EDTAssociated Problem(s): [...] being taken. She does not see a diploma medical assistant. Over the past 2 weeks, how often [...] tablet 3 montelukast (Singulair) 10 MG tablet spzinmqekibt-tfuo-xbszzwlr-folic acid (Centrum Silver, geriatric,) tablet as directed Orally nystatin (Mycostatin) 448422 UNIT/ML suspension OLANZapine (ZyPREXA) 10 MG tablet [...] Recheck, Anxiety Meds F/U. documented in this encounterTexas County Memorial HospitalZkirrppvyg67-12-2012 History of Present illness Narrative* SUSI Martin [...] tablet 3 montelukast (Singulair) 10 MG tablet pgdvreehrfgm-qiiy-ugvgswcq-folic acid (Centrum Silver, geriatric,) tablet as directed Orally nystatin (Mycostatin) [id number] UNIT/ML suspension OLANZapine (ZyPREXA) 10 MG tablet [...] associated with type 2 diabetes mellitus (HCC) ([facility]/HCC) - Microalbumin / creatinine urine ratio; Future Urine sample obtained today for Microalbumin testing. Follow up for Appointment As Scheduled. documented in this encounterTexas County Memorial HospitalYpijbbawch39-02-5192 History of Present illness Narrative* Madison Oconnell [...] CAPSULE BY MOUTH DAILY 100 capsule 1 Qzqgcmhiobm-Vlwevrtuc-Sshokr (Trelegy Ellipta) 100-62.5-25 MCG/ACT aerosol powder Inhale [...] tablet 1 montelukast (Singulair) 10 MG tablet gmptiajgjafo-cxhv-tkqurxxn-folic acid (Centrum Silver, geriatric,) tablet as directed Orally nystatin (Mycostatin) 234307 UNIT/ML suspension OLANZapine (ZyPREXA) 10 MG tablet [...] bowel disease Respiratory failure with hypoxia (CMS/[facility]) 01/11/2023 Sepsis (CMS/[facility]) 01/11/2023 Past Surgical History: Procedure Laterality [...] Type 2 diabetes mellitus with diabetic nephropathy ([facility]) We discussed today, the importance of [...] Morbid (severe) obesity due to excess calories ([facility]) Discussed goal of BMI < 30. [...] No follow-ups on file. documented in this [facility]11-20-2024 Telephone encounter Note* Telephone Encounter - SUSI Martin - 06/18/2024 10:03 AM EST OARRS reviewed, Rx sent into patient's pharmacy. [facility] HospitalCedbnofrez97-79-7249 Miscellaneous Notes* Telephone Encounter - SUSI Martin - 06/18/2024 10:03 AM EST OARRS reviewed, Rx sent into patient's pharmacy. documented in this [facility]09-30-2024 History of Present illness Narrative* SUSI [...] CAPSULE BY MOUTH DAILY 100 capsule 1 Mxwluhdidjr-Jcjinbvdg-Pkkdbm (Trelegy Ellipta) 100-62.5-25 MCG/ACT aerosol powder Inhale [...] tablet 1 montelukast (Singulair) 10 MG tablet okrsxbbihrbo-qccs-vllqiuay-folic acid (Centrum Silver, geriatric,) tablet as directed Orally nystatin (Mycostatin) [id number] UNIT/ML suspension OLANZapine (ZyPREXA) 10 MG tablet [...] time. Severe persistent asthma with acute exacerbation ([facility]) This is a chronic medical condition that is stable since last assessment. No changes in treatment are suggested at this time. COPD with chronic bronchitis ([facility]) This is a chronic medical condition that is stable since last assessment. No changes in treatment are suggested at this time. Essential hypertension ([facility]) Patient's blood pressure is currently well [...] time. Stage 3a chronic kidney disease (HCC) ([facility]) This is a chronic medical condition [...] associated with type 2 diabetes mellitus (HCC) ([facility]) Will continue to monitor with routine HgbA1c. Morbid (severe) obesity due to excess calories ([facility]) Encouraged portion control, decrease simple sugars and carbohydrates, gradually increase activity level. Aim for continued gradual steady weight loss. Type 2 diabetes mellitus with other specified complication, without long-term current use of insulin ([facility]) Will continue to monitor with routine HgbA1c. Type 2 diabetes mellitus without complication, without long-term current use of insulin ([facility]/HCC) - semaglutide (Ozempic, 1 MG/DOSE,) 2 MG/1.5ML [...] Will continue to monitor with routine labs. 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 documented in this encounterTexas County Memorial HospitalKqlyhbmipd79-43-8287 History of Present illness Narrative* Sandy Youssef [...] being taken. She does not see a diploma medical assistant. Current Outpatient Medications on File Prior to [...] CAPSULE BY MOUTH DAILY 100 capsule 1 Ztgnndxmrpa-Ulxitcmck-Kcyhba (Trelegy Ellipta) 100-62.5-25 MCG/ACT aerosol powder Inhale 1 puff in the morning. 1 each 11 gabapentin (Neurontin) 300 MG capsule loratadine (Claritin) 10 MG tablet 1 (one) time each day at the same time. metFORMIN (Glucophage) 500 MG tablet TAKE ONE TABLET BY MOUTH DAILY WITH A MEAL 100 tablet 1 jptrnopvtxzz-llwy-jzpucybf-folic acid (Centrum Silver, geriatric,) tablet as directed Orally nystatin (Mycostatin) [id number] UNIT/ML suspension OLANZapine (ZyPREXA) 10 MG tablet [...] (around 10/12/2024) for Diabetes. documented in this encounterTexas County Memorial HospitalTsysemgsgj87-82-1223 NotePROCEDURE: XR SACRUM_COCCYX COMPARISON: None. HISTORY: Lumbar [...] Electronically authenticated by: BRANDON CRUZ Date: 2022-12-15 08:23[facility]02-09-2023 NoteCONSULTATION CONSULTATION DATE: 09/07/2022 HISTORY OF PRESENT [...] otherwise indicated. Patient agrees with this plan.[facility] 09-07-2022 NoteCONSULTATION PROCEDURE DATE: 09/07/2022 PREOPERATIVE [...] be followed up in the office. [facility] HospitalEjrflvex19-58-5400 NoteCONSULTATION CONSULTATION DATE: 06/01/2022 HISTORY OF PRESENT [...] in three months' time unless otherwise indicated.[facility] HospitalZrqakcar82-84-1422 Note CONSULTATION PROCEDURE DATE: 06/01/2022 PREOPERATIVE DIAGNOSIS: [...] will be followed up in the office.[facility] HospitalSltxxhfq13-80-0679 NoteCONSULTATION PROCEDURE DATE: 04/06/2022 PRE AND POSTOPERATIVE [...] will be followed up in the clinic.[facility] 04-06-2022 NoteCONSULTATION CONSULTATION DATE: 04/06/2022 HISTORY [...] is to continue with her multivitamin regimen.[facility] HospitalPpvzzrsz61-73-4875 NoteCONSULTATION CONSULTATION DATE: 01/26/2022 This is a [...] be followed up in the office post-procedure. [facility] Signed and Approved by: GRANT MCGILL . 02/02/2022 16:26:00[facility]05-26-2021 NoteHNO ID: [id number] Author: Naina Oliva MD Service: ? 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 It is unl (more content not included)...[facility] CenterEvaluation noteNo assessment information availableRegency Hospital Cleveland West Work Phone: Evaluation note* Diagnosis Morbid obesity [...] Anxiety state, unspecified documented in this encounter [facility] HealthcareEvaluation note* Diagnosis Diabetic nephropathy associated with [...] esophagitis Esophageal reflux documented in this encounter [facility] HealthcareEvaluation note* Diagnosis Morbid obesity (CMS/HCC)- [...] with type 2 diabetes mellitus (HCC) (CMS/[facility]) Morbid (severe) obesity due to excess calories ([facility]) Type 2 diabetes mellitus with other specified complication, without long-term current use of insulin (CMS/HCC) Type 2 diabetes mellitus without complication, without long-term current use of insulin ([facility]) Adjustment disorder with anxiety (CMS/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 Migraine without [...] pulmonary disease (CMS/HCC) documented in this encounter [facility] HealthcareEvaluation note* Diagnosis Morbid obesity (CMS/HCC)- Primary [...] complication, without long-term current use of insulin ([facility]/HCC) Anxiety Anxiety state, unspecified Gastroesophageal reflux disease [...] associated with type 2 diabetes mellitus (HCC) ([facility]/HCC) Tremors of nervous system Anxiety Anxiety state, unspecified documented in this encounter [facility] HealthcareEvaluation note* Diagnosis Morbid obesity (CMS-HCC)- Primary [...] Anxiety state, unspecified documented in this encounter [facility] HealthcareEvaluation note* Diagnosis Morbid obesity ([facility]-HCC)- Primary Morbid obesity Type 2 diabetes mellitus without complication, without long-term current use of insulin (HCC) Essential hypertension Unspecified essential hypertension Smoker Tobacco use disorder Dizziness Dizziness and giddiness Migraine without aura and without status migrainosus, not intractable Acute exacerbation of chronic obstructive pulmonary disease ([facility]) Obstructive chronic bronchitis with exacerbation Nicotine dependence, cigarettes, with unspecified nicotine-induced disorders- Primary Type 2 diabetes mellitus with other specified complication, without long-term current use of insulin ([facility]) Adjustment disorder with anxiety Adjustment disorder with anxiety Migraine without aura and without status migrainosus, not intractable Pure hyperglyceridemia (E78.1) Pure hyperglyceridemia Stage 3a chronic kidney disease ([facility]) Diabetic nephropathy associated with type 2 diabetes mellitus (HCC)- Primary Essential hypertension Unspecified essential hypertension Encounter for screening mammogram for malignant neoplasm of breast Type 2 diabetes mellitus with other specified complication, without long-term current use of insulin ([facility]) Morbid (severe) obesity due to excess calories ([facility]) Body mass index (BMI) 37.0-37.9, adult [...] nephropathy associated with type 2 diabetes mellitus ([facility]) Spinal stenosis of lumbar region, unspecified whether neurogenic claudication present- Primary Type 2 diabetes mellitus with diabetic nephropathy, without long-term current use of insulin ([facility]) Major depressive disorder, single episode, mild Major depressive disorder, single episode, mild Essential hypertension Unspecified essential hypertension documented in this encounter [facility] HealthcareEvaluation note* Diagnosis Morbid obesity ([facility]-HCC)- Primary Morbid obesity Type 2 [...] without long-term current use of insulin ([facility]) Adjustment disorder with anxiety Migraine without aura and without status migrainosus, not intractable Pure hyperglyceridemia (E78.1) Pure hyperglyceridemia Stage 3a chronic kidney disease ([facility]) Diabetic nephropathy associated with type 2 diabetes mellitus (HCC)- Primary Essential hypertension Unspecified essential hypertension Encounter for screening mammogram for malignant neoplasm of breast Type 2 diabetes mellitus with other specified complication, without long-term current use of insulin ([facility]) Morbid (severe) obesity due to excess calories ([facility]) Body mass index (BMI) 37.0-37.9, adult [...] without long-term current use of insulin ([facility]) Diabetic nephropathy associated with type 2 diabetes mellitus ([facility]) Spinal stenosis of lumbar region, unspecified whether neurogenic claudication present- Primary Type 2 diabetes mellitus with diabetic nephropathy, without long-term current use of insulin (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 [employer] DATE CREATED AUTHOR AUTHOR'S ORGANIZ ATION 01/05/2023 [facility] DATE CREATED AUTHOR AUTHOR'S ORGANIZ ATION 09/14/2024 [facility] DATE CREATED AUTHOR AUTHOR'S ORGANIZ ATION 04/09/2025 [facility] EPIC DATE CREATED AUTHOR AUTHOR'S ORGANIZ ATION 05/16/2025 [facility] Care Teams (unrecognized sec tion and content) Team Status: Active Member Role Status Dates Sandy Youssef MD Primary Care Provider Active Team Status: Inactive Member Role Status Dates Sandy Youssef MD Primary Care Provider Active S tart: March 22, 2024 End: March 22, 2024Kentrell Diana ProviderActiveStart: March 22, 2024 End: March 22, 2024Team MemberRelationshipSpecialtyStart DateEnd Date Sandy Youssef MD [address] [facility] [address] [place] [address] PCP - Generalmi Medicine12/21/22Team MemberRelationshipSpecialtyStart DateEnd Date Sandy Youssef MD [address] [facility] [address] [place] [address] PCP - GeneralFamily Medicine12/21/22Team MemberRelationshipSpecialtyStart DateEnd Date Sandy Youssef MD [address] [facility] [address] [place] [address] PCP - GeneralFamily Medicine12/21/22Team MemberRelationshipSpecialtyStart DateEnd Date Sandy Youssef MD [address] [facility] [address] [place] [address] PCP - GeneralFami Medicine12/21/22Team MemberRelationshipSpecialtyStart DateEnd Date Sandy Youssef MD [address] [place] [address] [place] [address] PCP - GeneralFamily Medicine12/21/22Team MemberRelationshipSpecialtyStart DateEnd Date Sandy Youssef MD [address] [place] [address] [place] [address] PCP - GeneralFamily Medicine523Team MemberRelationshipSpecialtyStart DateEnd Date Sandy Youssef MD [address] [place] [address] [place] [address] PCP - GeneralFamily Medicine12/21/22Team MemberRelationshipSpecialtyStart DateEnd Date Sandy Youssef MD [address] [place] [address] [place] [address] PCP - GeneralFamily Medicine12/21/22Team MemberRelationshipSpecialtyStart DateEnd Date Sandy Youssef MD [address] [place] [address] [place] [address] PCP - GeneralFamily Medicine12/21/22Team MemberRelationshipSpecialtyStart DateEnd Date Sandy Youssef MD [address] [place] [address] [place] [address] PCP - GeneralFamily Medicine12/21/22Team MemberRelationshipSpecialtyStart DateEnd Date Sandy Youssef MD [address] [place] [address] [place] [address] PCP - GeneralFamily Medicine23Team MemberRelationshipSpecialtyStart DateEnd Date Sandy Youssef MD [address] [place] [address] [place] [address] PCP - GeneralFamily Medicine12/21/22Team MemberRelationshipSpecialtyStart DateEnd Date Sandy Youssef MD [address] [facility] [address] [place] [address] PCP - [facility]12/21/22Team MemberRelationshipSpecialtyStart DateEnd Date Sandy Youssef MD [address] [facility] [address] [place] [address] PCP - [facility]12/21/22Te MemberRelationshipSpecialtyStart DateEnd Date Sandy Youssef MD [address] [facility] [address] [place] [address] PCP - [facility]12/21/22Te MemberRelationshipSpecialtyStart DateEnd Date Sandy Youssef MD [address] [facility] [place] [address] PCP - [facility]12/21/22 Goals (unrecognized section and content) Goals may be documented in a n alternate section Reason for Visit (unrecogniz ed section and content) ReasonCommentsMed RefillReasonCommentsDiabetesLast A1c was 6.5ReasonOnset Date CommentsMed [id number]st 5.7 FOR RECORDS PERTAINING TO PATIENTS WHO [...] BE BASED ON THE PRIMARY CLINICAL RECORDS. [facility] [employer] [facility]. provides no warranty or guarantee of the accuracy or completeness of information in this document.
--- NOTE | 2025-06-04 08:48 | PM.CN ---
Consult Note: HPI Data of Consult Patient: known to practice within the last 3 years Consult date: 06/04/25 Requesting Physician: Josefina Graves NP Primary Care Provider: SANDY YOUSSEF Consult Narrative Reason for consult: low back and bilateral hip pain Narrative: Nesha Dallas a pleasant 54 year old female returns for care of chronic bilateral low back and SIJ pain > 5 years unresponsive to heat, ice, tylenol, nsaids, and > 6 weeks of provider guided HEP. prior imaging consistent with multilevel degeneration and facet arthropathy. Pt notes significant improvement from prior injections, notes worsening pain over the last 6 months without injury. Pain today 3/10 aching increasing to 8/10 with twisting, bending, pushing, pulling, lifting, housework. Pt finds benefit to sitting, lying, and sleep. currently on duloxetine, meloxicam, flexeril, xanax prn with minimal benefit. recently underwent bilateral L4-5 L5-S1 MBB #1 with >80% improvement in pain and functional ability greater than 24 hours. preop pain up to 8/10 post op pain 0/10. She noted significant relief with vacuming and standing/walking. cc:: CC: Josefina rGaves NP Review of Systems ROS Musculoskeletal Reports: back pain; Denies: extremity [facility] Surgical History History of tonsillectomy ?Z90.89 - Acquired absence of other organs (ICD-10) H/O hemorrhoidectomy ?Z98.890 - Other specified postprocedural states (ICD-10) H/O: hysterectomy ?Z90.710 - Acquired absence of both cervix and uterus (ICD-10) H/O ovarian cystectomy ?Z98.890 - Other specified postprocedural states (ICD-10) ?Z87.42 - Personal history of other diseases of the female genital tract (ICD-10) History of cholecystectomy ?Z90.49 - Acquired absence of other specified parts of digestive tract (ICD-10) History of appendectomy ?Z90.49 - Acquired absence of other specified parts of digestive tract (ICD-10) S/P ?Z98.891 - History of uterine scar from previous surgery (ICD-10) Social History Smoking status: Heavy tobacco smoker Gender Identity: female Meds Home Medications and Allergies Home Medications ?Medication ?Instructions ?Recorded ?Confirmed ?Type 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 1 tab PO QDAY 01/03/23 06/01/25 History amlodipine 10 mg tablet 10 mg PO DAILY 01/03/23 06/01/25 History cyclobenzaprine 10 mg tablet 5 mg PO QPM 01/03/23 06/01/25 History duloxetine 60 mg capsule,delayed 90 mg PO DAILY 01/03/23 06/01/25 History release (Cymbalta) olanzapine 5 mg tablet 10 mg PO QPM 01/03/23 06/01/25 History omega 9-zwn-vce-fish oil 1,000 mg 1 cap PO DAILY 01/03/23 06/01/25 History (120 mg-180 mg) capsule (Fish Oil) omeprazole 20 mg capsule,delayed 40 mg PO DAILY 01/03/23 06/01/25 History release potassium chloride 10 mEq 10 meq PO DAILY 01/12/23 06/01/25 History tablet,extended release (K-Tab) alprazolam 0.5 mg tablet 0.5 mg PO DAILY 04/23/25 06/01/25 History atorvastatin 40 mg tablet 40 mg PO DAILY 04/23/25 06/01/25 History dextromethorphan IR 45 1 tab PO DAILY 04/23/25 06/01/25 History mg-bupropion ER 105 mg biphasic tablet (Auvelity) furosemide 20 mg tablet 20 mg PO DAILY 04/23/25 06/01/25 History metformin 500 mg tablet 500 mg PO DAILY 04/23/25 06/01/25 History rimegepant 75 mg disintegrating 75 mg PO DAILY PRN migraine 04/23/25 06/01/25 History tablet (Nurtec ODT) headache meloxicam 7.5 mg tablet 7.5 mg PO BID PRN pain #60 tabs 05/21/25 06/01/25 Rx Allergies Allergy/AdvReac Type Severity Reaction Status Date / Time hydromorphone (From Dilaudid) Allergy Mild itch Verified 05/11/25 07:34 Exam Constitutional Documenting provider has reviewed patient's vital signs: yes Common normals: no apparent distress, oriented x3, healthy appearing, alert and well nourished General appearance: cooperative HENMT Common normals: normocephalic, hearing grossly normal bilaterally and moist oral mucous membranes Head and scalp: normocephalic Eye Common normals: PERRL Pupil: PERRL Neck & C-Spine Common normals: full ROM General: normal visual inspection Chest Common normals: inspection of chest normal Respiratory Common normals: normal respiratory effort, no retractions and no use of accessory muscles Back & Pelvis Lumbar spine/lower back: ROM limited, pain with ROM, lumbar spinal tenderness and straight leg raise negative bilaterally Sacroiliac joints: SI joints normal Other: bilateral sij negative jennifer(patricks), gaenslens, thigh thrust, compression test strength 5/5 in BLE sensation intact BLE Neuro Common normals: oriented x3 Sensorium/orientation: alert Psych Common normals: mental status grossly normal, thought process normal, cooperative, affect normal, speech normal and activity/motor behavior normal Speech: normal speech Thought process: normal thought process Results Imaging lumbar xray : Attestation: I have reviewed the pertinent imaging results. Radiologist's impression: Vertebral body heights appear maintained. Endplate and facet joint degenerative changes with moderate disc space narrowing L4-L5 L5-S1 which has progressed since 2022. Additional Findings Additional findings: If on a controlled substance or opioids, I have checked an [place] report on this patient and there are no aberrancies noted in the prescribing history.??If on a controlled substance or opioid a drug screen was completed and reviewed within the last year, and if there has not been a drug screen completed we ordered one today to monitor higher risk, state monitored pain medication use. As part of providing excellent, safe, comprehensive care, the following was completed at our patient's visit: 1. A medication reconciliation and review to ensure accurate knowledge of current/active medications, including asking our patients to inform us about any [id number] medications or herbal remedies/nutritional supplements/alternative remedies. 2. A review to specifically ensure our patients have had annual screening for screening for depression, screening for tobacco use, and screening for unhealthy alcohol use. For concerning screenings had a discussion with the patient, provided patient education, and recommended follow-up with primary care provider when appropriate. If patient noted with a risk of falling, they received education on strength, gait, and balance training to prevent future risk of falling. Portions of this note may have been carried over from the previous visit and updated as appropriate. Please note this office utilizes paper charting in addition to the electronic medical record. A list of current medications, vitals, and PMH is available there as the clinical staff outside of myself do not have access to [facility] [employer] charting during the clinic day operations. As part of providing quality comprehensive care the current medications, vitals, and PMH were reviewed in the paper chart. Assessment and Plan Assessment and Plan (1) Lumbar spondylosis: (2) Sacroiliitis: Assessment and Plan: 05/11/25 bilateral SIJ injection >75% improvement ongoing Plan The patient has had over 3 months of moderate to severe low back pain with functional impairment and inadequate response to conservative care including NSAIDS (unless there are contraindication such as concurrent blood thinners), multiple oral or topical pain medications, and home exercise program/physical therapy.? Patient has completed >6 weeks of guided home exercise program and/or formal physical therapy program without relief of their symptoms.? The Oswestry Disability Index was completed, and the patient scored a 30%.? proceed with bilateral L4-5 L5-S1 mbb #2 under fluoroscopy in consideration of RFA for facet mediated low back pain continue meloxicam 7.5mg bid prn pain take with food continue flexeril 5mg PRN pain/spasms, can refill at 5-10mg TID PRN pain/spasms if needed. sparingly utilizing at this time f/u after each injection
== END 2025-06-04 08:28 | disposition home or self-care (01) ==
LOC: PM 08:29
PROVIDERS: PCP Family Medicine; Visit Provider Nurse Practitioner
DX: M47.816 Spondylosis without myelopathy or radiculopathy, lumbar region (principal); M46.1 Sacroiliitis, not elsewhere classified
CPT/HCPCS: G0463

== ENCOUNTER 2025-06-29 07:03 | Day surgery (SDC) | payer OTHER, SELFPAY ==
--- OUTSIDE RECORDS SUMMARY | 2025-05-05 02:30 | XMS_ITS ---
Author Organization The [facility] in [place] Address [address] [place] [address] Care Team Providers Care Tree Feller Name Role Phone Josey Gonsalez MD Primary Care Provider Anders Bartlett Unavailable [phone] REASON FOR VISIT 1 year F/U Asthma/COPD Encounters Encounter Location Date Provider Diagnosis Pulmonary Medicine [address] [address] 05/05/2025 Anders Hickey Plan Of Treatment No Information Progress Notes * Nesha DALLAS ADOB:[birth year] (54 yo F)Acc No.[id number]:05/05/2025 UNLOCKED PROGRESS NOTE Follow Up Patient: Corine DELACRUZ Nesha Ziyad :?Anders Hickey DODOB:1970???Age:54 Y ???Sex:FemaleDate:05/05/2025Phone:[phone]:[address] [id number]:Josey Gonsalez MD Subjective: * Chief Complaints: * 1 . 1 year F/U Asthma/COPD. * Medical History: Objective: * Vitals: Assessment: Plan: * Treatment: * * Electronic signature of Anders Hickey DO on 06/29/2025 at 07:05 AM ESTSign off status: PendingVisit Status:?OFF CANC (OFFICE CANCEL) * Provider: Kim Hickey DO Date: 1 Generated for Printing/Faxing/eTransmitting on:?06/29/2025 07:05 AM EST
--- OUTSIDE RECORDS SUMMARY | 2025-06-29 07:06 | XMS_ITS | Clinical Summary ---
Author Organization [facility] Healthcare Address [address] [place] [address] Care Team Providers Care Contact Lens Inspector Name Role Phone Josey Youssef MD Primary Care Provider [phone] Allergies Active AllergyReactionsCriticalityNoted DateCommentsHydromorphoneItching 03/04/2013 Other Reaction(s): Unknown Medications MedicationSigDispense QuantityRefillsLast FilledStart DateEnd DateStatus albuterol HFA 90 mcg/act inhaler 12/21/2022ctive nystatin (Mycostatin) 266853 UNIT/ML suspension 09/07/2022ctive traMADol (Ultram) 50 MG tablet Indications:Other chronic painTAKE ONE TABLET BY MOUTH FOUR TIMES A DAY NEEDED 120 tablet 02/22/2023ctive aspirin 81 MG EC tablet 1 (one) time each day at the same time.Active loratadine (Claritin) 10 MG tablet 1 (one) time each day at the same time.Active ogppgzctikfx-jomf-pwpipztf-folic acid (Centrum Silver, geriatric,) tablet as directed [...] MOUTH EVERY NIGHT AT BEDTIME 60 tablet 5Active Rimegepant Sulfate (Nurtec) 75 MG tablet dispersible Indications:Migraine without aura and without status migrainosus, not intractableDISSOLVE 1 TABLET BY MOUTH EVERY OTHER DAY FOR PREVEBTATIVE 15 tablet 5Active Active Problems ProblemNoted DateDiagnosed DateMajor depressive disorder, single episode, mild 04/07/2025 Assessment & Plan (04/07/2025 9:49 AM EDT): This is a chronic medical condition that is stable since last assessment. No changes in treatment are suggested at this time. Continue Current meds. Spinal stenosis of lumbar wwejlm9204/07/2025bnormal laboratory test result 10/13/2024hronic kidney woizcyv1110/13/2024Moderate persistent asthma without soqzjrxspolc35/17/2025Renal cyst09/11/2024OPD with chronic kkvlfcavgr65/30/2024 Diabetic nephropathy associated with type 2 diabetes eyjkdlxa79/16/2024 Assessment & Plan (10/13/2024 9:08 AM EDT): [...] and importance of healthy diet and exercise. Eardjdlve75/11/2023 Assessment & Plan (04/09/2023 8:43 AM EDT): Increase fluids, drinking electrolyte [facility] (current) use of inhaled pvuddqzu28/07/2023Lung field abnormal 04/05/2023djustment disorder with miupxhm2412/26/2022llergic ttypqnyq02/30/2023 Ocmyzo7412/26/2022aytime ojafuctiod54/30/2023epressive bwfrguws01/30/2023 Assessment & Plan (04/14/2024 1:17 PM EDT): This is a chronic medical condition that is stable since last assessment. No changes in treatment are suggested at this time. Continue Current meds. Essential rchlzukgwyjh81/30/2023 Assessment & Plan (04/07/2025 9:48 AM EDT): [...] the importance of taking them as prescribed. [employer] handouts Assessment & Plan (04/14/2024 1:13 PM [...] the importance of taking them as prescribed. [employer] handouts Assessment & Plan (04/09/2023 8:31 AM [...] the importance of taking them as prescribed. [employer] diet handouts Hot flashes due to /30/2071Vjxuwsylgmbfmlxdrtkg71/30/2023Irritable bowel syndrome with rbfyhcjd41/30/2023Leg length oclcunvgfsk53/30/2023Migraine without aura and without status migrainosus, not ncauksssacr70/30/2023 Assessment & Plan (10/23/2023 9:00 AM EDT): [...] frequent Morbid (severe) obesity due to excess ryalhrbe71/30/2023 Assessment & Plan (04/14/2024 1:17 PM EDT): Weight loss encouraged Assessment & Plan (04/09/2023 8:30 AM EDT): Weight loss and exercise encouraged Osteoarthritis of lumbar spine12/26/2022Other chronic pain12/26/2022iriformis syndrome of left side12/26/20228090Wcldwhqna88/30/2023Pure hypercholesterolemia 12/26/2022 Assessment & Plan (04/14/2024 1:14 PM EDT): This is a chronic medical condition that is stable since last assessment. No changes in treatment are suggested at this time. Continue Current meds. Stage 3a chronic kidney owqlfmg9412/26/2022 Assessment & Plan (10/23/2023 8:56 AM EDT): Saw Nephrology 6-8 months ago Surgical /30/2023Tension vfficixy17/30/2023Type 2 diabetes mellitus 12/26/2022 Assessment & Plan [...] of healthy diet and exercise. Sciatic nerve tjqrhb5304/06/2017History of kmmbillamjcf10/14/2016 Resolved Problems ProblemNoted DateDiagnosed DateResolved DatePre-hagrsqbn67ody mass index (BMI) 37.0-37.9, adult Assessment & Plan (04/14/2024 1:17 PM EDT): Diet and Exercise encouraged Nicotine dependence, cigarettes, with unspecified nicotine-induced disorders Assessment & Plan (10/23/2023 8:55 AM EDT): Resumed smoking after mom's Discussed smoking cessation with the patient. Encouraged patient to cut back and soon quit smoking.Health risks of smoking, and benefits of quitting reviewed with the patient. Acute exacerbation of chronic obstructive pulmonary dlutuaa91 Assessment & Plan (04/09/2023 9:18 AM EDT): Trelegy samples given Elevated BP without diagnosis of cqvxizjbdfnx42Finding of above normal blood ashbpkvi19H/O total cjkzydqjkitw23/30/2023 04/28/2024Hot aplakiw37Impaired fasting kewutde9512/26/2022 04/14/2024Migraine yubtbati42Obesity (BMI 30.0-34.9)12/26/2022 04/28/20243950Vrcfdw82 Assessment & Plan (04/09/2023 8:39 AM EDT): Discussed smoking cessation with the patient. Encouraged patient to cut back and soon quit smoking.Health risks of smoking, and benefits of quitting reviewed with the patient. Encounters DateTypeDepartmentCare PxsrVbynonzwfue44/28/2025bstract [facility] [address] [facility] [address] [place] [address] Josey Youssef MD 05/18/2025[facility]ill [facility] [address] [facility] [address] [place] [phone] Josey Youssef MD Tremors of nervous system; Anxiety; Migraine without aura and without status migrainosus, not xqvbjxvumxo73/25/2025 Clinisync Result Encounter NOMS External Department Unsolicited Provider, Generic External Data 04/23/2025linisync Result Encounter NOMS External Department Unsolicited Provider, Generic External Data 04/21/2025Refill [facility] [address] [facility] [address] [place] [address] Josey Youssef MD Qzvegohjj65/17/2025bstract [facility] [place] [facility] [address] [facility] [address] [place] [address] Josey Youssef MD 04/07/2025 9:30 AM EDTOffice Visit [facility] [address] [facility] [address] [place] [address] Josey Youssef MD Spinal stenosis of lumbar region, unspecified whether neurogenic claudication present (Primary Dx); Type 2 diabetes mellitus with diabetic nephropathy, without long-term current use of insulin (HCC); Major depressive disorder, single episode, mild ; Essential yfygqyuxprbw55/09/2025Travelfrom Last 3 Months Immunizations ImmunizationAdministration DatesNext DueInfluenza, injectable, MDCK, preservative free, zmreapwvcumx23/13/2021Influenza, injectable, quadrivalent, preservative free06/15/2022Moderna Bivalent Booster Nwijjbvybxe72/17/2022 SARS-COV-2 (COVID-19) vaccine, mRNA, spike protein, LNP, bivalent, preservative free, 30 mcg/0.3 mLdose, maria esther-sucrose ehatmehmdru74/17/2022 Family History Medical HistoryRelationNameCommentsColon cancerMaternal GrandfatherDiabetes Maternal GrandmotherCancer, DM HTNMotherPassed away ervical cancerMother DiabetesMotherhtnMotherPsoriasisOtherFamily historyHeart diseasePaternal GrandfatherStrokePaternal GrandfatherDiabetesPaternal GrandmotherRelationName StatusCommentsFatherAliveMaternal GrandfatherMaternal GrandmotherDeceasedMother DeceasedOtherFamily historyPaternal GrandfatherPaternal Grandmother Social History Tobacco UseTypesPacks/DayYears UsedDateSmoking Tobacco: NckrphWhcqntlcqs388 Started: 1984Smokeless Tobacco: Never Tobacco Cessation:Counseling Given: Not Answered Alcohol UseStandard Drinks/WeekCommentsYes0 (1 standard drink = 0.6 oz pure alcohol)1-2 drinks monthly or less, caffeine yes coffee,sodaSocial Connection and Isolation PanelAnswerDate RecordedIn a typical week, how many times do you talk on the phone with family, friends, or neighbors?Patient vezjvjok20/25/2024 How often do you get together with friends or relatives?Patient declined 10/22/2023How often do you attend latter-day or congregation services?Patient declined 10/22/2023o you belong to any clubs or organizations such as latter-day groups, unions, fraternal or athletic groups, or school groups?Patient declined 10/22/2023How often do you attend meetings of the clubs or organizations you belong to?Patient akifmxnt12/25/2024re you , , , , never , or living with a partner?Slozowi1810/22/2023UDIT-C AnswerDate RecordedQ1: How often do you have a drink containing alcohol?Patient estjnpbg72/25/2024Q2: How many drinks containing alcohol do you have on a typical day when you are drinking?Patient utovqpyq48/25/2024Q3: How often do you have six or more drinks on one occasion?Patient /25/2024Overall Financial Resource Strain (CARDIA)AnswerDate RecordedHow hard is it for you to pay for the very basics like food, housing, medical care, and heating?Patient ropnydmf87/25/2024HQ-2AnswerDate RecordedPatient Health Questionnaire-2 Score0 04/07/2025Hunger Vital SignAnswerDate RecordedWithin the past 12 months, you worried that your food would run out before you got the money to buymore.Patient zunbmjil93/25/2024Within the past 12 months, the food you bought just didn't last and you didn't have money to get more.Patient dhcremrc02/25/2024RAPARE - TransportationAnswerDate RecordedIn the past 12 months, [...] steady place to sleep or slept in springportelter (including now)?No10/22/2023CommentsUnknownSex and Gender InformationValueDate RecordedSex Assigned at BirthNot on fileLegal SexFemale 10/11/2022 7:00 PM EDTGender IdentityNot on fileSexual OrientationNot on file Last Filed Vital Signs Vital SignReadingTime TakenCommentsBlood Vkciyeui919/8809 9:27 AM EDT Xwkxl537204/07/2025 9:27 AM QUVUlbwiwnqsae63.3 ??C (99.2 ??F)01/10/2023 9:23 AM EDTRespiratory Fros792309/11/2024 9:28 AM ESTOxygen Rfbirrfkld89%04/07/2025 9:27 AM EDTInhaled Oxygen Concentration--Mnlmkz00.4 kg (217 lb)04/07/2025 9:27 AM EDT Tkvciq125.1 cm (5' 5 )04/07/2025 9:27 AM EDTBody Mass Index36.11004/07/2025 9:27 AM EDT Plan of Treatment DateTypeDepartmentCare Team (Latest Contact Info)Mkfoeyrudpy01/15/2025 8:15 AM ESTOffice Visit [facility] [address] [facility] [address] [place] [phone] Josey Youssef MD [address] [facility] [address] [place] [address] Health MaintenanceDue DateLast DoneCommentsCT Kojlniiimfxv05/01/1970FIT-DNA 1969FIT1969FOBT1969 1969Kbbjnatftzwss63/01/1970Diabetes: Retinopathy Mzchksidf19/01/1980Pneumococcal Vaccine: Pediatrics (0 to 5 Years) and At-Risk Patients (6 to 64 Years) (1 of 2 - PCV)1988COVID-19 Vaccine (2024- season), 12/23/2021, 07/11/2021, Additional history existsInfluenza Vaccine (#1)/, 07/11/2021Mammogram /, 2Diabetes: Hemoglobin A1C/03/2025, 10/13/2024, 04/14/2024, Additional history existsDiabetes: Urine Protein Vcunbgtoy41/13/369322/, 04/09/2023, 6912Smxnefpzmxe59/07/2031 1Colorectal Cancer Olvddmhfi34/07/2031 Goals GoalPatient Goal TypeAssociated ProblemsRecent ProgressPatient-Stated?Author Help patient manage antidepressant medication Care PlanPatient on antidepressant monitoring Josey Caceres MD Baseline PHQ-9 Care PlanBaseline PHQ-9Josey Peterson MD Procedures Procedure NamePriorityDate/TimeAssociated DiagnosisCommentsXR LUMBAR SPINE MIN 4V04/23/2025 9:48 AM EDT XR SACROILIAC JOINT04/23/2025 9:47 AM EDT POCT GLYCATED HEMOGLOBIN, WOLDUWfrpvaj57/09/2025 9:37 AM EDT Type 2 diabetes mellitus with diabetic nephropathy, without long-term current use of insulin (HCC) MICROALBUMIN / CREATININE URINE AXJQLKllvbnk58/13/2025 2:17 PM EST MM TOMOSYNTHESIS SCREENING BI04/18/2024 12:10 PM EDT HTARAEPJPNWVdiaevl43/07/2021 12:00 PM EDT from Last 3 Months or Most Recently Relevant to Health Maintenance Results * XR LUMBAR SPINE MIN 4V (04/23/2025 9:48 AM EDT)Anatomical RegionLaterality ModalityOtherSpecimen (Source)Anatomical Location / LateralityCollection Method / VolumeCollection TimeReceived Time04/23/2025 9:48 AM EDT Narrative 04/23/2025 9:50 AM EDT [facility] ?[address] ? [place] [address] ?XRay Report ? Signed ? Patient: DHARA DALLAS ?MR#: [id number] ?? : 1970 ?Acct:[id number] ?? Age/Sex: 54 / F ?ADM Date: 04/23/25 ?? Loc: RAD ? Attending Dr: Tyra Vance FOOD AND DRUG INSPECTOR ? Ordering Physician: Tyra Vance NP ?? Date of Service: 04/23/25 ?? Procedure(s): XR lumbar spine min 4V ?? Accession Number(s): [id number] ? cc: JOSEY YOUSSEF ; Tyra Vance NP ? [facility] ? [address] ? [place] [address] ? Patient Name: ?? DHARA DALLAS ? MRN: TBH:[id number] ? date: 1970 ?Sex: F ?? Assigned Patient Location: PM ?? Current Patient Location: PM ?? Accession/Order Number: [id number] ?? Exam Date: 04/23/2025 ??08:55 ?Report Date: 04/23/2025 ??09:48 ? At the request of: ?? TYRA ??RAJIV ??FOOD AND DRUG INSPECTOR ? Procedure: ??XR lumbar spine min 4V [...] dictated by: Rafiq Rai Jr., D.OInna ??04/23/2025 9:48 AM ? Dictation Location: [facility] ? Electronically authenticated by: [id number] ??Y ?? Date: 04/23/2025 ??09:48 ? Dictated By: ?Rafiq Rai M.D. ? Signed By: ?04/23/25 0950 ? DD/ 0948 ? TD/TT: ? Newsroom Intern: Procedure Note Radiology, Radiologist, MD - 04/23/[address] [address] XRay Report Signed Patient: DHARA DALLAS AMR#: [id number] : 1970Acct:[id number] Age/Sex: 54 / FADM Date: 04/23/25 Loc: RAD Attending Dr: Tyra Vance NP Ordering Physician: Tyra Vance NP Date of Service: 04/23/25 Procedure(s): XR lumbar spine min 4V Accession Number(s): [id number] cc: JOSEY YOUSSEF ; Tyra Vance NP The [address] [address] Patient Name: DHARA DALLAS MRN: [id number] date: 1970 Sex: F Assigned Patient Location: PM Current Patient Location: PM Accession/Order Number: [id number] Exam Date: 04/23/2025 08:55 Report Date: 04/23/2025 [...] Jr., D.O. 04/23/2025 9:48 AM Dictation Location: [place] [address] Electronically authenticated by: [id number] Y Date: 9:48 Dictated By: Rafiq Rai M.D. Signed By:04/23/2550 DD/ TD/TT: Newsroom Intern: Authorizing ProviderResult TypeResult StatusGeneric External Data Provider CLINISYNC IMAGINGFinal Result * XR SACROILIAC JOINT (04/23/2025 9:47 AM EDT)Anatomical RegionLaterality ModalityRadiographic ImagingSpecimen (Source)Anatomical Location / Laterality Collection Method / VolumeCollection TimeReceived Time04/23/2025 9:47 AM EDT Narrative 04/23/2025 9:49 AM EDT [facility] ?[address] ? [place] [address] ?XRay Report ? Signed ? Patient: DHARA DALLAS ?MR#: [id number] ?? : 1970 ?Acct:[id number] ?? Age/Sex: 54 / F ?ADM Date: 04/23/25 ?? Loc: RAD ? Attending Dr: Tyra Vance FOOD AND DRUG INSPECTOR ? Ordering Physician: Tyra Vance NP ?? Date of Service: 04/23/25 ?? Procedure(s): XR sacroiliac joint ELIANE ?? Accession Number(s): [id number] ? cc: JOSEY YOUSSEF ; Tyra Vance FOOD AND DRUG INSPECTOR ? [facility] ? [address] ? [place] [address] ? Patient Name: ?? DHARA DALLAS ? MRN: [facility]:[id number] ? date: 1970 ?Sex: F ?? Assigned Patient Location: PM ?? Current Patient Location: PM ?? Accession/Order Number: [id number] ?? Exam Date: 04/23/2025 ??08:55 ?Report Date: 04/23/2025 ??09:47 ? At the request of: ?? TYRA ??RAJIV ??FOOD AND DRUG INSPECTOR ? Procedure: ??XR sacroiliac joint ELIANE ? [...] D.OInna ??04/23/2025 9:47 AM ? Dictation Location: [facility] ? Electronically authenticated by: [id number] ??Y ?? Date: 04/23/2025 ??09:47 ? Dictated By: ?Rafiq Rai M.D. ? Signed By: ?04/23/25 0949 ? DD/ 0947 ? TD/TT: ? Newsroom Intern: Procedure Note Radiology, Radiologist, - 04/23/[address] [address] XRay Report Signed Patient: DHARA DALLAS AMR#: [id number] : 1970Acct:[id number] Age/Sex: 54 / FADM Date: 04/23/25 Loc: RAD Attending Dr: Tyra Vance NP Ordering Physician: Tyra Vance NP Date of Service: 04/23/25 Procedure(s): XR sacroiliac joint ELIANE Accession Number(s): [id number] cc: JOSEY YOUSSEF ; Tyra Vance NP The [address] [address] Patient Name: DHARA DALLAS MRN: [id number] date: 1970 Sex: F Assigned Patient Location: PM Current Patient Location: PM Accession/Order Number: [id number] Exam Date: 04/23/2025 08:55 Report Date: 04/23/2025 [...] Jr., D.O. 04/23/2025 9:47 AM Dictation Location: [place] [address] Electronically authenticated by: [id number] Y Date: 9:47 Dictated By: Rafiq Rai M.D. Signed By:04/23/2549 DD/ TD/TT: Newsroom Intern: Authorizing ProviderResult TypeResult StatusGeneric External Data ProviderIMG XR PROCEDURESFinal Result * POCT Glycated hemoglobin, total (04/07/2025 9:37 AM EDT)ComponentValueRef RangeTest MethodAnalysis TimePerformed AtPathologist SignatureHemoglobin A1C 5.5Specimen (Source)Anatomical Location / LateralityCollection Method / Volume Collection TimeReceived LfwaTiznk63/09/2025 9:37 AM EDT Narrative Authorizing ProviderResult TypeResult StatusRugen M Mikael MDPOINT OF CARE TEST ENTER/EDIT ORDERABLESFinal Result * Microalbumin / creatinine urine ratio (09/11/2024 2:17 PM EST)ComponentValue Ref RangeTest MethodAnalysis TimePerformed AtPathologist SignatureCREATININE, RANDOM PANOE8710 - 275 mg/dLQUESTALBUMIN, URINE0.4See Note: mg/dLQUESTComment: Reference [...] Performing Organization Information ?Site ID: QPT ?Name: [facility] ?Address: [address] [place] [address], [address] [place] [id number] ?Director: Christiano Escobar MD Authorizing ProviderResult TypeResult StatusJanel Field PAL URINE ORDERABLESFinal ResultPerforming OrganizationAddressCity/State/ZIP CodePhone Number QUEST * MM TOMOSYNTHESIS SCREENING BI (04/18/2024 12:10 PM EDT)Anatomical Region LateralityModalityOtherSpecimen (Source)Anatomical Location / Laterality Collection Method / VolumeCollection TimeReceived Time04/18/2024 12:[address] [facility] 04/18/2024 12:11 PM EDT [facility] ?[address] ? [place] [address] ? Mammography Report ? Signed ? Patient: ARTIERGER,DHARA A ?MR#: [id number] ?? : 1970 ?Acct:[id number] ?? Age/Sex: 53 / F ?ADM Date: //24 ?? Loc: MAMMO ? Attending Dr: JOSEY GAMBOAA ? Ordering Physician: JOSEY YOUSSEF ? Results: ? Date of Service: /20/24 ?Follow Up: ? Procedure(s): MM tomosynthesis screening BI ?? Accession Number(s): [id number] ? cc: JOSEY YOUSSEF ? Patient Name: ? DHARA DALLAS ? MR#: [id number] ? : 1970 ? Exam Date: 04/18/2024 [...] at age 78. ? LOCATION: ? [facility] ? BREAST COMPOSITION: ? There are [...] By: ?Silver Sterling M.D. ? Signed By: ?04/18/ 1211 ? DD/ 1210 ? TD/TT: ? Newsroom Intern: Procedure Note Radiology, Radiologist, MD - 04/18/2024 [place] [address] Mammography Report Signed Patient: DHARA DALLAS AMR#: [id number] : 1970Acct:[id number] Age/Sex: 53 / FADM Date: 04/18/24 Loc: MAMMO Attending Dr: JOSEY YOUSSEF Ordering Physician: Taylor YOUSSEFults: Date of Service: 04/18/24Follow Up: Procedure(s): MM tomosynthesis screening BI Accession Number(s): [id number] cc: JOSEY YOUSSEF Patient Name: DHARA DALLAS MR#: [id number] : 1970 Exam Date: 04/18/2024 Ordering Doctor: [...] with lung cancer at age78. LOCATION: [facility] BREAST COMPOSITION: There are scattered [...] M.D. Signed By:04/18/24 1211 DD/ 1210 TD/TT: Newsroom Intern: Authorizing ProviderResult TypeResult StatusJosey Youssef [facility] CITYLINISYNC IMAGING Final Result * Colonoscopy (12/03/2020 12:00 PM EDT)Anatomical RegionLateralityModality EndoscopySpecimen (Source)Anatomical Location / LateralityCollection Method / VolumeCollection TimeReceived Time12/03/2020 12:00 PM EDT Narrative 12/03/2020 12:00 PM EDT PERFORMED AT [facility] LOCATION:[id number] colonic polyp Procedure Note CONVERSION, GENERIC - 12/13/2022 PERFORMED AT [facility] LOCATION:[id number] colonic polyp Authorizing ProviderResult TypeResult StatusJosey Youssef MDENDOSCOPY PROCEDURE ORDERABLESFinal Result from Last 3 Months or Most Recently Relevant to Health Maintenance Additional Health Concerns Active ProblemsNoted DateDiagnosed DatePatient on antidepressant monitoring plan 04/07/2025aseline PHQ-9004/07/2025 Insurance Care Teams Team MemberRelationshipSpecialtyStart DateEnd Date Josey Youssef MD [address] [place] [address] [facility] - [facility]22
--- OUTSIDE RECORDS SUMMARY | 2025-06-29 07:06 | XMS_ITS | CCD ---
Author Organization [facility] Care Team Providers Care Veterinarian Helper Name Role Phone WATTS ., DR AMELIA [...] Unavailable MIKAEL, DR DELGADO Primary Care Unavailable MIKALE, DR DELGADO Primary Care Unavailable WATTS ., [...] Primary Care Unavailable KEVEN ESCOBEDO Consulting Unavailable [place] Sandy GOMEZ Primary Care Provider JANEL CROWDER Attending Unavailable MIKAELSANDY Attending Unavailable MIKAELSANDY Attending Unavailable HEMJANEL MURRY Attending Unavailable LILIAMADISON CALLES Attending Unavailable MIKAELSANDY Attending Unavailable Yamile Lopez MD Attending Unavailable Allergies Allergy ClassificationReported Allergen(s)Allergy TypeDate of OnsetReaction(s) Facility (1 source)HYDROmorphoneDrug Pedzjmq46-25-4816Btx[facility] (20 sources)HYDROmorphoneDrug Brpvkvf73-31-4290BcgsiyeKCYN Healthcare Medications Current Medications MedicationDrug Class(es)DatesSig (Normalized)Sig (Original)[id number] 200 actuat albuterol 0.09 mg/actuat metered dose inhaler (20 sources)beta2-Adrenergic AgonistStart: 79-53-4419alziigylu HFA 90 mcg/act inhaler 12/21/2022 Activealbuterol 0.833 mg/ml / ipratropium bromide 0.167 mg/ml inhalation solution (20 sources)Anticholinergic, beta2-Adrenergic AgonistStart: 09-30-2023 ipratropium-albuterol (Duo-Neb) 0.5-2.5 mg/3 mL nebulizer solution 09/30/2023 ActiveALPRAZolam 0.5 mg oral tablet (20 sources)BenzodiazepineStart: 04-14-2024 End: 05-38-4051chia 1 tablet by mouth once daily in the morning, then take 1 tablet by mouth once daily at bedtimeALPRAZolam (Xanax) 0.5 MG tablet Indications: Anxiety TAKE 1 TABLET BY MOUTH EVERY MORNING AND TAKE1 TABLET BY MOUTH EVERY NIGHT AT BEDTIME 60 tablet 05/18/2025 06/17/2025 ActiveamLODIPine 5 mg oral tablet (20 sources)Dihydropyridine Calcium Channel BlockerStart: 04-07-2025 End: 65-17-4949adhw 1 tablet by mouth once dailyamLODIPine (Norvasc) 5 MG tablet Indications: Essential hypertension Take 1 tablet (5 mg) by mouth Daily 04/07/2025 ActiveStart: 08-19-2024 End: 66-12-5006ufnp 1 tablet by mouth once dailyamLODIPine (Norvasc) 10 MG tablet Indications: Essential hypertension TAKE 1 TABLET BY MOUTH DAILY 100 tablet 3 08/19/2024 04/07/2025 Discontinued (Reorder)Start: 68-81-5630ewkm 1 tablet by mouth once dailyamLODIPine (Norvasc) 10 MG tablet Indications: Essential hypertension (CMS/HCC) TAKE ONE TABLET BY MOUTH DAILY 100 tablet 3 08/14/2023 Activeaspirin 81 mg delayed release oral tablet (20 sources)Platelet Aggregation Inhibitor, Nonsteroidal Anti-inflammatory Drug aspirin 81 MG EC tablet 1 (one) time each day at the same time. Active atorvastatin 40 mg oral tablet (20 sources)HMG-CoA Reductase InhibitorStart: 17-58-1624lcgh 1 tablet by mouth once dailyatorvastatin (Lipitor) 40 MG tablet Indications: Hypertriglyceridemia TAKE 1 TABLET BY MOUTH DAILY 100 tablet 3 08/19/2024 ActiveStart: 47-75-5023bpxu 1 tablet by mouth once dailyatorvastatin (Lipitor) 40 MG tablet Indications: Hypertriglyceridemia (CMS/HCC) TAKE 1 TABLET BY MOUTH DAILY 100 tablet 1 02/11/2024 Activeazithromycin 250 mg oral tablet (4 sources)Macrolide AntimicrobialStart: 08-05-2024 End: 00-72-9766reqi 2 tablets by mouth once daily, then [...] 5 mg oral tablet (20 sources)Muscle RelaxantStart: 08-52-5868xewo 1 tablet by mouth three times dailycyclobenzaprine (Flexeril) 5 MG tablet Indications: Tremors of nervous system TAKE 1 TABLET BY MOUTH 3 TIMES A DAY 90 tablet 1 05/18/2025 ActiveStart: 02-02-2025 End: 30-43-3476echv 1 tablet by mouth three times dailycyclobenzaprine (Flexeril) 5 MG tablet Indications: Tremors of nervous system TAKE 1 TABLET BY MOUTH 3 TIMES A DAY 90 tablet 1 02/02/2025 05/18/2025 DiscontinuedStart: 49-08-4096plba 1 tablet by mouth three times dailycyclobenzaprine (Flexeril) 5 MG tablet Indications: Tremors of nervous system TAKE 1 TABLET BY MOUTH 3 TIMES A DAY 90 tablet 1 11/24/2024 ActiveStart: 07-07-2024 End: 66-55-2380cxkc 1 tablet by mouth three times dailycyclobenzaprine (Flexeril) 5 MG tablet Indications: Tremors of nervous system TAKE 1 TABLET BY MOUTH 3 TIMES A DAY 90 tablet 1 07/07/2024 11/24/2024 DiscontinuedStart: 67-00-0202rnig 1 tablet by mouth three times dailycyclobenzaprine (Flexeril) 5 MG tablet Indications: Tremors of nervous system TAKE 1 TABLET BY MOUTH 3 TIMES A DAY 90 tablet 1 04/22/2024 ActiveStart: 40-57-3647zrnb 5 mg by mouth once daily at bedtimeCyclobenzaprine Active 5 MG PO Daily at bedtime March 22, 2024 12:00amStart: 90-82-2470jyrt 1 tablet by mouth three times daily cyclobenzaprine (Flexeril) 5 MG tablet Indications: Tremors of nervous system TAKE ONE TABLET BY MOUTH THREE TIMES A DAY 90 tablet 1 11/26/2023 Active Dextromethorphan-buPROPion ER (Auvelity) 45-105 MG tablet controlled-release (4 sources)Start: 04-07-2025 End: 62-17-0316exnm 45-105 mg by mouth once dailyDextromethorphan-buPROPion ER (Auvelity) 45-105 MG tablet controlled-release Indications: Major depressive disorder, single episode, mild Take 1 tablet by mouth Daily 30 tablet 04/07/2025 05/07/2025 Kgrpca36 hr diclofenac sodium 100 mg extended release oral tablet (20 sources)Nonsteroidal Anti-inflammatory DrugStart: 69-29-9058xfpy 1 tablet by mouth once dailydiclofenac sodium (Voltaren XR) 100 mg 24 hr tablet Indications: Dizziness TAKE 1 TABLET BY MOUTH DAILY 30 tablet 2 04/21/2025 ActiveStart: 79-96-1264rrei 1 tablet by mouth once dailydiclofenac sodium (Voltaren XR) 100 mg 24 hr tablet Indications: Dizziness TAKE 1 TABLET BY MOUTH DAILY 30 tablet 2 12/29/2024 ActiveStart: 33-40-3363uttq 1 tablet by mouth once dailydiclofenac sodium (Voltaren XR) 100 mg 24 hr tablet Indications: Dizziness TAKE 1 TABLET BY MOUTH DAILY 30 tablet 2 09/15/2024 ActiveStart: 03-22-2024 End: 29-17-2528Iiphyfsbdl Sodium Discontinued MG PO March 22, 2024 12:00am March 22, 2024 9:35amStart: 32-40-1691xwfu 1 tablet by mouth once daily diclofenac [...] capsule (20 sources)Serotonin and Norepinephrine Reuptake InhibitorStart: 79-30-5304lvvm 1 capsule by mouth once dailyDULoxetine (Cymbalta) [address] capsule Indications: Depressive disorder Take 1 capsule (30 mg) by mouth Daily 100 capsule 3 02/16/2025 ActiveStart: 45-80-9826mukz 1 capsule by mouth once dailyDULoxetine (Cymbalta) [address] capsule Indications: Depressive disorder (CMS/HCC) TAKE 1 CAPSULE BYMOUTH DAILY 30 capsule 2 10/20/2024 ActiveStart: 52-22-7711sasu 1 capsule by mouth once dailyDULoxetine (Cymbalta) [address] capsule Indications: Depressive disorder TAKE 1 CAPSULE BY MOUTH DAILY 100 capsule 3 08/19/2024 ActiveStart: 53-85-3534kpey 1 capsule by mouth once dailyDULoxetine (Cymbalta) [address] capsule Indications: Depressive disorder (CMS/HCC) TAKE 1 CAPSULE BY MOUTH DAILY 30 capsule 2 07/21/2024 ActiveStart: 42-93-2074bhsy 1 capsule by mouth once dailyDULoxetine (Cymbalta) [address] capsule Indications: Depressive disorder (CMS/HCC) TAKE 1 CAPSULE BYMOUTH DAILY 30 capsule 2 04/18/2024 Active Start: 14-52-5167vdfm 1 capsule by mouth once dailyDULoxetine (Cymbalta) [address] capsule Indications: Depressive disorder (CMS/HCC) TAKE 1 CAPSULE BYMOUTH DAILY 100 capsule 1 02/11/2024 ActiveStart: 18-38-9602tzen 30 mg by mouth once dailyDuloxetine Active 30 MG PO Daily March 22, 2024 12:00am in addition to 60mg30 actuat fluticasone furoate 0.1 mg/actuat / umeclidinium 0.0625 mg/actuat / vilanterol 0.025 mg/actuat dry powder inhaler (12 sources)Anticholinergic, Corticosteroid, beta2-Adrenergic AgonistStart: 02-01-2023 End: 35-19-4714ifbk 1 puff(s) by inhalation in the morning Cpavhmxcrju-Clusmfpjv-Zhuicc (Trelegy Ellipta) 100-62.5-25 MCG/ACT aerosol powder Indications: Acute exacerbation of chronic obstructive pulmonary disease (CMS/HCC) Inhale 1 puff in the morning. 1 each 02/01/2023 08/12/2024 Discontinued (Therapy completed)furosemide 20 mg oral tablet (20 sources)Loop DiureticStart: 04-31-5931fzes 1 tablet by mouth once daily furosemide (Lasix) 20 MG tablet Indications: Essential hypertension TAKE 1 TABLET(20 MG) BY MOUTH DAILY 100 tablet 1 11/04/2024 ActiveStart: 02-11-2024 End: 88-31-6995miul 1 tablet by mouth once dailyfurosemide (Lasix) 20 MG tablet Indications: Essential hypertension (CMS/HCC) Take 1 tablet (20 mg)by mouth Daily 100 tablet 1 04/14/2024 Activegabapentin 300 mg oral capsule (14 sources)Anti-epileptic AgentStart: 09-11-2024 End: 43-93-0618kxch 1 capsule by mouth in the morning, [...] days. 30 capsule 09/11/2024 ActiveStart: 12-16-2022 End: 38-14-5775jqvhkbrkiu (Neurontin) 300 MG capsule 12/16/2022 04/28/2024 Discontinued (Other)loratadine 10 mg oral tablet (20 sources)loratadine (Claritin) 10 MG tablet 1 (one) time each day at the same time. ActivemetFORMIN hydrochloride 500 mg oral tablet (20 sources)BiguanideStart: 76-41-0780bjnp 1 tablet by mouth once daily at mealtimemetFORMIN (Glucophage) 500 MG tablet Indications: Hypertriglyceridemia TAKE 1 TABLET BY MOUTH DAILYWITH A MEAL 100 tablet 3 08/19/2024 ActiveStart: 72-64-1607qzve 1 tablet by mouth once daily at mealtimemetFORMIN (Glucophage) 500 MG tablet Indications: Hypertriglyceridemia (CMS/HCC) TAKE ONE TABLET BY MOUTH DAILY WITH A MEAL 100 tablet 1 02/11/2024 ActivemethylPREDNISolone (2 sources)CorticosteroidStart: 08-12-2024 End: 62-94-9450myenrrETRCWLZjrpyg (Medrol Dospak) 4 MG tablets Indications: Pansinusitis, unspecified chronicity Follow schedule on package instructions 21 tablet 08/12/2024 08/19/2024 Activemontelukast 10 mg oral tablet (20 sources)Leukotriene Receptor AntagonistStart: 60-50-1688qgvlqxlvwvd (Singulair) 10 MG tablet 09/16/2023 Fjtnwnufjjbrbidnls-cxcl-ragukdyc-folic acid (Centrum Silver, geriatric,) tablet (20 sources)qjaxlxzftsia-scnq-vcdqxpcs-folic acid (Centrum Silver, geriatric,) tablet as directed Orally Activenystatin 908302 unt/ml oral suspension (20 sources)Polyene AntifungalStart: 51-10-6674fllfczov (Mycostatin) 776669 UNIT/ML suspension 09/07/2022 Activeofloxacin 3 mg/ml ophthalmic solution (6 sources)Quinolone AntimicrobialStart: 03-22-2024 End: 06-53-8875bhduuctli (Ocuflox) 0.3 % ophthalmic solution Four times daily 03/22/2024 04/28/2024 Discontinued (Therapy completed)Start: 12-87-5700jpcc 1 drop(s) into the eye(s) four times dailyOfloxacin Active 2 DROPS OPHTHALMIC Four times daily 12 03March 22, 2024 12:00am right eyeOLANZapine 10 mg oral tablet (20 sources)Atypical AntipsychoticStart: 04-69-5123xxxa 1 tablet by mouth once dailyOLANZapine (ZyPREXA) 10 MG tablet Indications: Adjustment disorder with anxiety TAKE 1 TABLET BY MOUTH DAILY 100 tablet 3 08/19/2024 ActiveStart: 50-46-5778zopp 1 tablet by mouth once dailyOLANZapine (ZyPREXA) 10 MG tablet Indications: Adjustment disorder with anxiety (CMS/HCC) TAKE 1 TABLET BY MOUTH DAILY 100 tablet 1 02/11/2024 Activeomeprazole 40 mg delayed release oral capsule (20 sources)Proton Pump InhibitorStart: 04-14-2024 End: 33-84-3453wcvg 1 capsule by mouth once daily before mealtimeomeprazole (PriLOSEC) [address] capsule Indications: Gastroesophageal reflux disease without esophagitis TAKE 1 CAPSULE BY MOUTH EVERY MORNING BEFORE MEALS, DO NOT CRUSH OR CHEW 100 capsule 3 07/21/2024 Activeondansetron 4 mg oral tablet (11 sources)Serotonin-3 Receptor AntagonistStart: 01-17-2024 End: 11-94-0059psir 1 tablet by mouth every six hours as needed for nausea and vomitingondansetron (Zofran) 4 MG tablet TAKE 1 TABLET BY MOUTH EVERY 6 HOURS NEEDED FOR NAUSEA AND VOMITING 01/17/2024 08/12/2024 Discontinued (Therapy completed)Ozempic, 1 MG/DOSE, 4 MG/3ML solution pen-injector (4 sources)Start: 10-09-2024 End: 07-61-1875Iumdris, 1 MG/DOSE, 4 MG/3ML solution pen-injector 10/09/2024 04/07/2025 Discontinued (Therapy completed)Start: 22-42-1808Oswpewc, 1 MG/DOSE, 4 MG/3ML solution pen-injector 10/09/2024 Activepotassium chloride 10 meq extended release oral tablet (20 sources)potassium chloride CR (Klor-Con) 10 MEQ ER tablet every 12 (twelve) hours. Activerimegepant 75 mg disintegrating oral tablet (20 sources)Start: 41-00-6866rwuj 1 tablet by mouth every other dayRimegepant Sulfate (Nurtec) 75 MG tablet dispersible Indications: Migraine without aura and withoutstatus migrainosus, not intractable DISSOLVE 1 TABLET BY MOUTH EVERY OTHER DAY FOR PREVEBTATIVE 15 tablet 2 05/18/2025 ActiveStart: 12-29-2024 End: 50-06-0219qzsz 1 tablet by mouth every other dayRimegepant [...] 30 tablet 11 10/23/2023 ActiveSemaglutide (1 source)Start: 47-24-0457gcmggn 1 mg by subcutaneous injection every week Semaglutide (Ozempic) 1 mg/dose (4 mg/3 mL) pen injector Active 1 MG SUBCUT every week February 12:00am1 mg dose 1.5 ml semaglutide 1.34 mg/ml pen injector (20 sources)Start: 11-05-2024 End: 23-55-2461vbpwvm 1 mg by subcutaneous injection every weeksemaglutide (Ozempic, 1 MG/DOSE,) 2 MG/1.5ML solution pen-injector Indications: Type 2 diabetes mellitus without complication, without long-term current use of insulin (HCC) Inject 1 mg under the skin 1 (one) time per week 3 mL 5 11/05/2024 04/07/2025 Discontinued (Therapy completed)Start: 10-23-2023 End: 83-98-1642rwkzvo 1 mg by subcutaneous injection every weeksemaglutide (Ozempic, 1 MG/DOSE,) 2 MG/1.5ML solution pen-injector Indications: Type 2 diabetes mellitus without complication, without long-term current use of insulin (CMS/HCC) Inject 1 mg under theskin 1 (one) time per week 3 mL 5 04/28/2024 ActiveSemaglutide, 2 MG/DOSE, 8 MG/3ML solution pen-injector (5 sources)Start: 04-07-2025 End: 78-88-0573mcqihc 2 mg by subcutaneous injection every weekSemaglutide, 2 MG/DOSE, 8 MG/3ML solution pen-injector Indications: Type 2 diabetes mellitus with diabetic nephropathy, without long-term current use of insulin (HCC) Inject 2 mg under the skin 1 (one) time per week 9 mL 04/07/2025 07/16/2025 Active traMADol hydrochloride 50 mg oral tablet (20 sources)Opioid AgonistStart: 43-14-2611nglm 1 tablet by mouth four times daily as neededtraMADol (Ultram) 50 MG tablet Indications: Other chronic pain TAKE ONE TABLET BY MOUTH FOUR TIMES A DAY NEEDED 120 tablet 02/22/2023 Active valACYclovir 1000 mg oral tablet (3 sources)Herpesvirus Nucleoside Analog DNA Polymerase Inhibitor, Herpes Simplex Virus Nucleoside Analog DNA Polymerase Inhibitor, Herpes Zoster Virus Nucleoside Analog DNA Polymerase InhibitorStart: 09-11-2024 End: 99-64-8755mrhz 1 tablet by mouth in the morning, [...] anxious mood; Translations: [Adjustment disorder with anxiety]Onset: 284491-93-6528YaawijpAtfxarg disorders (8 sources)Anxiety; Translations: [Anxiety disorder, unspecified]06-18-2024 ChronicAsthma (20 sources)Asthma; Translations: [Unspecified asthma, uncomplicated]Onset: 743604-77-9522WpabxizBdakwmn kidney disease (20 sources)Chronic kidney disease stage 3A ; Translations: [Stage 3a chronic kidney disease (HCC)]Onset: 025067-32-9322MatxtccQnuhmpe obstructive pulmonary disease and bronchiectasis (20 sources)Emphysematous bronchitis; 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]Onset: 12-26-2022 Resolved: 213792-53-7196PajwufdIaojqsjanzfob of surgical procedures or medical care (20 sources)Postsurgical menopause; Translations: [Asymptomatic postprocedural ovarian failure]Onset: 607384-88-0702TcuspneMnicwjzx mellitus with complications (20 sources)Renal disorder due to type 2 diabetes mellitus; Translations: [Type 2 diabetes mellitus with diabetic nephropathy]Onset: hronic Diabetes mellitus without complication (20 sources)Type 2 diabetes mellitus; Translations: [Type 2 diabetes mellitus without complications]Onset: 437527-16-7573GtqbnriAgbyclzcm of lipid metabolism (20 sources)Hyperlipidemia; Translations: [Hyperlipidemia, unspecified]Onset: 252944-24-8875GivqxzoEzyygckzcr disorders (2 sources)Gastroesophageal reflux disease without esophagitis; Translations: [Gastro-esophageal reflux disease without esophagitis]29-15-7718TjcuzelVcfkqpjjz hypertension (20 sources)Hypertensive disorder; Translations: [Essential (primary) hypertension]Onset: 617152-74-6253OcnwphwLqcjzibp; including migraine (20 sources)Migraine without aura, not refractory ; Translations: [Migraine without aura, not intractable, without status migrainosus]Onset: 12-26-2022 Resolved: 892758-70-7922MqxbabkSoykxllgobvav and screening for infectious disease (2 sources)Vaccination needed; Translations: [Encounter for immunization] 79-40-0186RotcdttrKjcxyqmtww disorders (20 sources)Menopausal flushing; Translations: [Menopausal and female climacteric states]Onset: 248735-80-6928HnxfklxEiwi disorders (20 sources)Depressive disorder; Translations: [Depression]Onset: 12-26-2022 53-18-4567OcrrztmRhtkw gastrointestinal disorders (20 sources)Irritable bowel syndrome with diarrhea; Translations: [Irritable bowel syndrome with diarrhea]Onset: 220180-41-4723ScxumvkDcimo inflammatory condition of skin (20 sources)Psoriasis; Translations: [Psoriasis, unspecified]Onset: 12-26-2022 71-68-8688ZuurmkpIglqs nervous system disorders (1 source)Other chronic pain; Translations: [OTHER CHRONIC PAIN]Onset: 67-94-7200XsijdshNjpam nervous system disorders (20 sources)Chronic pain; Translations: [Other chronic pain]Onset: 12-26-2022 65-32-1256BamcuprKaeav nervous system disorders (20 sources)Left-sided piriformis syndrome; Translations: [Lesion of sciatic nerve, left lower limb]Onset: 481138-22-9333RennmjeZzhwt nervous system disorders (20 sources)Sciatic nerve lesion; Translations: [Lesion of sciatic nerve, unspecified lower limb]Onset: 949494-12-9963HqsfsooWgcvo nervous system disorders (2 sources)Tremor; Translations: [Tremor, unspecified]75-49-6131NxnccmwqXtssd nutritional; endocrine; and metabolic disorders (20 sources)Obesity caused by energy imbalance; Translations: [Morbid (severe) obesity due to excess calories]Onset: 892836-17-8045JnrkrfqYuihi nutritional; endocrine; and metabolic disorders (1 source)Morbid obesity; Translations: [Morbid (severe) obesity due to excess calories]Onset: 336787-86-6178PvmhxbiUfkmb screening for suspected conditions (not mental disorders or infectious disease) (2 sources)Patient encounter status; Translations: [Encounter for screening mammogram for malignant neoplasm of breast]58-58-1801NdpwsqisRyizj upper respiratory disease (20 sources)Allergic rhinitis; Translations: [Allergic rhinitis, unspecified] Onset: 444326-13-6483VjvlnmjEbqpu upper respiratory disease (2 sources)Allergic rhinitis due to pollen; Translations: [Allergic rhinitis due to pollen]53-51-5527LwsnbrnQmipi upper respiratory infections (2 sources)Pansinusitis; Translations: [Chronic pansinusitis]71-48-1858Mmcbmcc Peripheral and visceral atherosclerosis (2 sources)Atherosclerosis of aorta; Translations: [Atherosclerosis of aorta] 95-43-5436UbkkoreSagstyeai and history of mental health and substance abuse codes (2 sources)Ex-smoker; Translations: [Personal history of nicotine dependence] 38-35-7937YvapyjjaIdbxulqexkf; intervertebral disc disorders; other back problems (20 sources)Spondylosis without myelopathy or radiculopathy, lumbar region; Translations: [Sacroiliitis, not elsewhere classified]Onset: 56-78-7426Vlwlgnx Spondylosis; intervertebral disc disorders; other back problems (13 sources)Lumbago with sciatica, left side; Translations: [Intervertebral disc disorders with radiculopathy, lumbar region]Onset: 080427-51-8436Fpcblqxk Unclassified (1 source)CONTACT W/AND (SUSP) EXPOS COVID-19; Translations: [CONTACT W/AND (SUSP) EXPOS COVID-19]Onset: 64-08-6482Ocvjfqniljru (1 source)ACUTE COUGH; Translations: [ACUTE COUGH]Onset: 17-66-7804Azkaecsghjan (3 sources)LOW BACK PAIN, UNSPECIFIED; Translations: [LOW BACK PAIN, UNSPECIFIED]Onset: 36-40-5690Mnzofqsnxztk (5 sources)Patient on antidepressant monitoring planOnset: 087876-77-4823 Unclassified (5 sources)Baseline PHQ-9Onset: 838080-24-0048Dbwdy infection (2 sources)Herpes zoster without complication; Translations: [Zoster without complications]12-90-8869Eaqugldy Past or Other Problems Problem ClassificationProblemDateDocumented DateEpisodic/ChronicComa; stupor; and brain damage (20 sources)Daytime somnolence; Translations: [Somnolence]Onset: 12-26-2022 52-37-4011FocajxvbBjqqsquycv associated with dizziness or vertigo (20 sources)Dizziness; Translations: [Dizziness and giddiness]Onset: 04-09-2023 85-24-2432PfdqhmvsQgbkmfoi mellitus without complication (20 sources)Prediabetes; Translations: [Prediabetes]Onset: 12-26-2022 Resolved: 851780-70-4271AzjzmjrdNtwcp acquired deformities (20 sources)Leg length inequality; Translations: [Unequal limb length (acquired), unspecified site]Onset: 839107-70-1607GxuysrcwPctpz acquired deformities (3 sources)Unequal limb length (acquired), unspecified site; Translations: [Unequal leg length (acquired)]Onset: 788643-94-9823PbbqyowoIthne aftercare (1 source)Other terminologist (current) drug therapy; Translations: [OTH FDC CURRENT DRUG THERAPY]Onset: 47-74-6137NnwiquneYjfdi aftercare (20 sources)Long-term current use of inhaled steroid; Translations: [prison (current) use of inhaled steroids]Onset: 187402-56-5677GrmhrlamRmfnm circulatory disease (20 sources)Elevated blood-pressure reading without diagnosis of hypertension; Translations: [Elevated blood-pressure reading, without diagnosis of hypertension]Onset: 12-26-2022 Resolved: 584923-20-4219HwmmibzzCpcyq circulatory disease (20 sources)Elevated blood pressure; Translations: [Elevated blood-pressure reading, without diagnosis of hypertension]Onset: 12-26-2022 Resolved: 695802-40-3741XqswcnjbReugi connective tissue disease (5 sources)Other muscle spasm; Translations: [OTHER MUSCLE SPASM]Onset: 96-98-6467FyehmhrvQzilb diseases of kidney and ureters (12 sources)Cyst of kidney; Translations: [Cyst of kidney, acquired]Onset: 402078-08-5247MmkkuacyGnujo lower respiratory disease (1 source)Wheezing; Translations: [WHEEZING]Onset: 13-67-8193XhlkrxwjKbqcm lower respiratory disease (20 sources)Lung field abnormal; Translations: [Other nonspecific abnormal finding of lung field]Onset: 307525-06-4220FuuxopydLwvpp nutritional; endocrine; and metabolic disorders (20 sources)Obese class I; Translations: [Obesity (BMI 30.0-34.9)]Onset: 12-26-2022 Resolved: 957080-88-2987JuxcwztOlhed nutritional; endocrine; and metabolic disorders (20 sources)Body mass index 30+ - obesity; Translations: [Body mass index (BMI) 37.0-37.9, adult]Onset: 04-14-2024 Resolved: 393340-53-3983IylugcdFoqcpgty codes; unclassified (4 sources)Pain, unspecified; Translations: [PAIN UNSPECIFIED]Onset: 09-07-2022 EpisodicResidual codes; unclassified (1 source)Acquired absence of other specified parts of digestive tract; Translations: [ACQ ABSENCE OTH PART DIGESTV TRACT]Onset: 63-06-2783Fzlupazq Residual codes; unclassified (1 source)Acquired absence of both cervix and uterus; Translations: [ACQUIRED ABSENCE BOTH CERVIX AND UTERUS]Onset: 02-85-1715UdgprfdhBoscdlkg codes; unclassified (1 source)Acquired absence of ovaries, unilateral; Translations: [ACQUIRED ABSENCE OVARIES UNILATERAL]Onset: 91-89-9108WqdyvfieCaviguzk codes; unclassified (20 sources)Flushing; Translations: [Flushing]Onset: 12-26-2022 Resolved: 663188-64-2166EavbglujPdbgaokdc-hnmjvox disorders (20 sources)Nicotine dependence, cigarettes, uncomplicated; Translations: [Smoker]Onset: 05-17-2022 Resolved: 995768-15-0081PahejfyVdwveqrpdzwu (1 source)LOW BACK PAIN, UNSPECIFIED; Translations: [LOW BACK PAIN, UNSPECIFIED] Onset: 05-16-2022 Results Test NameValueInterpretationReference RangeFacilityXR LUMBAR SPINE MIN 4Von 74[place]13-8930[place] [id number] XRay Report Signed Patient: DHARA DALLAS MR#: [id number] : 1970 Acct:[id number] Age/Sex: 54 / F ADM Date: 04/23/25 Loc: RAD Attending Dr: Tyra Graves [employer] Ordering Physician: Tyra Graves NP Date of Service: 04/23/25 Procedure(s): XR lumbar spine min 4V Accession Number(s): [id number] cc: SANDY YOUSSEF Anna NP [place] [id number] Patient Name: DHARA DALLAS MRN: [id number] date: 1970 Sex: F Assigned Patient Location: Current Patient Location: Accession/Order Number: [id number] Exam Date: 04/23/2025 08:55 Report Date: 04/23/2025 [...] Jr., D.O. 04/23/2025 9:48 AM Dictation Location: [place] [address] Electronically authenticated by: [id number] Y Date: 04/23/2025 09:48 Dictated By: Rafiq Rai M.D. Signed By: 04/23/2550 DD/ 7 TD/TT: Box Person:TBHRadiology, Radiologist, - 04/23/2025 [address] [place] [id number] XRay Report Signed Patient: DHARA DALLAS MR#: [id number] : 1970 Acct:[id number] Age/Sex: 54 / F ADM Date: 04/23/25 Loc: RAD Attending Dr: Tyra Graves NP Ordering Physician: Tyra Graves NP Date of Service: 04/23/25 Procedure(s): XR lumbar spine min 4V Accession Number(s): [id number] cc: SANDY YOUSSEF ; Tyra Graves NP [facility] [place] [address] Patient Name: DHARA DALLAS MRN: [id number] date: 1970 Sex: F Assigned Patient Location: Current Patient Location: Accession/Order Number: [id number] Exam Date: 04/23/2025 08:55 Report Date: 04/23/2025 [...] Jr., D.O. 04/23/2025 9:48 AM Dictation Location: [place] [address] Electronically authenticated by: [id number] Y Date: 04/23/2025 09:48 Dictated By: Rafiq Rai M.D. Signed By: 04/23/25949 DD/ 7 TD/TT: Box Person: SAMREEN HealthcareRadiology Study observation (narrative)NOMS HealthcareXR LUMBAR SPINE MIN 4VOrdered By: Radiologist Radiology on 36-79-2427K[facility]F [facility] Work Phone: XR SACROILIAC JOINTon 10-88-5931[address] [address] XRay Report Signed Patient: DHARA DALLAS MR#: [id number] : 1970 Acct:[id number] Age/Sex: 54 / F ADM Date: 04/23/25 Loc: [facility] Attending Dr: Tyra Graves NP Ordering Physician: Tyra Graves NP Date of Service: 04/23/25 Procedure(s): XR sacroiliac joint ELIANE Accession Number(s): [id number] cc: SANDY YOUSSEF ; Tyra Graves NP [address] [id number] Patient Name: DHARA DALLAS MRN: [id number] date: 1970 Sex: F Assigned Patient Location: Current Patient Location: Accession/Order Number: [id number] Exam Date: 04/23/2025 08:55 Report Date: 04/23/2025 [...] Jr., D.O. 04/23/2025 9:47 AM Dictation Location: [place] [address] Electronically authenticated by: [id number] Y Date: 04/23/2025 09:47 Dictated By: Rafiq Rai M.D. Signed By: 04/23/2549 DD/ TD/TT: Box Person:TBHRadiology, Radiologist, - 04/23/[address] [address] XRay Report Signed Patient: DHARA DALLAS MR#: [id number] : 1970 Acct:[id number] Age/Sex: 54 / F ADM Date: 04/23/25 Loc: [facility] Attending Dr: Tyra Graves NP Ordering Physician: Tyra Graves NP Date of Service: 04/23/25 Procedure(s): XR sacroiliac joint ELIANE Accession Number(s): [id number] cc: SANDY YOUSSEF Anna NP [facility] [place] [id number] Patient Name: DHARA DALLAS MRN: [id number] date: 1970 Sex: F Assigned Patient Location: Current Patient Location: Accession/Order Number: [id number] Exam Date: 04/23/2025 08:55 Report Date: 04/23/2025 [...] Jr., D.O. 04/23/2025 9:47 AM Dictation Location: [place] [address] Electronically authenticated by: [id number] Y Date: 04/23/2025 09:47 Dictated By: Rafiq Rai M.D. Signed By: 04/23/2549 DD/ 6 TD/TT: Box Person: NOMCorine HealthcareRadiology Study observation (narrative)NOMS HealthcareXR SACROILIAC JOINTOrdered By: Radiologist Radiology on 56-08-5344HAIVCox [facility] Work Phone: Laboratory - Hematology and Cell countson 04-07-2025 HbA1c (Bld) [Mass fraction]5.5 %[facility]ox BransonNo Panel Informationon 04-07-2025 Interpretation and review of laboratory resultsNoAdventHealth DurandALBUMIN, RANDOM URINE W/CREATININEon 68-93-2599RDHBZTG, URINE0.4 mg/dL NormalSee Note:Quest DiagnosticsComment on above:Result Comment: Reference Range: Reference Range Not establishedPerformed By: #### 6517 #### [facility] [address], [address] [place] [address] Manager Global Communications: Christiano Escobar MDALBUMIN/CREATININE RATIO, RANDOM URINE9 mg/g [...] category.Performed By: #### 6517 #### [facility] [address], [address] [place] [address] Manager Global Communications: Christiano Escobar MDCreatinine (U) [Mass/Vol]47 mg/mZMoqpyz70-244 Quest DiagnosticsComment on above:Performed By: #### 6517 #### [facility] [address], [address] [place] [address] Manager Global Communications: Christiano Escobar MDMicroalbumin/Creatinine ratio panel (U)on 44-83-8920Zgrflwd DL <= 20 mg/L (U) [Mass/Vol]0.4 mg/dLSee Note:[facility] [employer] Comment on above:Reference Range: Reference Range Not established Albumin/Creatinine (U) [Mass ratio]9NINFCox BransonComment on above: The ADA defines abnormalities in [...] category. Creatinine (U) [Mass/Vol]47 mg/dL20 - 275 mg/dLCox BransonPerreading hospital Organization Information Site ID: QPT Name: [facility] Address: [address] [place] [address], [address] [place] [id number] Director: Christiano Escobar MDWestern Wisconsin Health CHEST WO CONon 04-50-[place] [address] CT Scan Report Signed Patient: DHARA DALLAS MR#: [id number] : 1970 Acct:[id number] Age/Sex: 53 / F ADM Date: 04/18/24 Loc: CT Attending Dr: Melisa Blanc D.O. Ordering Physician: Melisa Blanc D.O. Date of Service: 04/18/24 Procedure(s): CT chest wo con Accession Number(s): [id number] cc: SANDY YOUSSEF [place] [id number] Patient Name: DHARA DALLAS MRN: [id number] date: 1970 Sex: F Assigned Patient Location: CT Current Patient Location: CT Accession/Order Number: [id number] Exam Date: 04/18/2024 07:40 Report Date: 04/21/2024 [...] Signed By: 04/21/24 1328 DD/ 1325 TD/TT: Box Person:AMINAHRadiology, Radiologist, - 04/21/2024 [place] [address] CT Scan Report Signed Patient: DHARA DALLAS MR#: [id number] : 1970 Acct:[id number] Age/Sex: 53 / F ADM Date: 04/18/24 Loc: CT Attending Dr: Melisa Blanc D.O. Ordering Physician: Melisa Blanc D.O. Date of Service: 04/18/24 Procedure(s): CT chest wo con Accession Number(s): [id number] cc: SANDY YOUSSEF [place] [id number] Patient Name: DHARA DALLAS MRN: [id number] date: 1970 Sex: F Assigned Patient Location: CT Current Patient Location: CT Accession/Order Number: [id number] Exam Date: 04/18/2024 07:40 Report Date: 04/21/2024 [...] Signed By: 04/21/24 1328 DD/ 1325 TD/TT: Box Person: SAMREEN HealthcareRadiology Study observation (narrative)NOM HealthcareCT CHEST WO CONOrdered By: Radiologist Radiology on 42-06-3325BYCZ [facility] Work Phone: mm TOMOSYNTHESIS SCREENING BIon 97-82-7614C[address] [address] Mammography Report Signed Patient: DHARA DALLAS MR#: [id number] : 1970 Acct:[id number] Age/Sex: 53 / F ADM Date: 04/18/24 Loc: MAMMO Attending Dr: SANDY YOUSSEF Ordering Physician: SANDY YOUSSEF Results: Date of Service: 04/18/24 Follow Up: Procedure(s): MM tomosynthesis screening BI Accession Number(s): [id number] cc: SANDY YOUSSEF Patient Name: DHARA DALLAS MR#: [id number] : 1970 Exam Date: 04/18/2024 Ordering Doctor: [...] lung cancer at age 78. LOCATION: [facility] BREAST COMPOSITION: There are scattered areas [...] Signed By: 04/18/24 1211 DD/ 1210 TD/TT: Box Person:TBHRadiology, RadiologistMD - 04/18/2024 [facility] [place] [id number] Mammography Report Signed Patient: DHARA DALLAS MR#: [id number] : 1970 Acct:[id number] Age/Sex: 53 / F ADM Date: 04/18/24 Loc: MAMMO Attending Dr: SANDY YOUSSEF Ordering Physician: SANDY YOUSSEF Results: Date of Service: 04/18/24 Follow Up: Procedure(s): MM tomosynthesis screening BI Accession Number(s): [id number] cc: SANDY YOUSSEF Patient Name: DHARA DALLAS MR#: [id number] : 1970 Exam Date: 04/18/2024 Ordering Doctor: [...] lung cancer at age 78. LOCATION: [facility] BREAST COMPOSITION: There are scattered areas [...] Signed By: 04/18/24 1211 DD/ 1210 TD/TT: Box Person: SAMREEN HealthcareRadiology Study observation (narrative)NOMS HealthcareMM TOMOSYNTHESIS SCREENING BIOrdered By: Radiologist Radiology on 62-85-7243MBBKCox Branson Work Phone: Laboratory - Hematology and Cell countson 04-14-2024 HbA1c (Bld) [Mass fraction]5.7 %[facility] Panel Informationon 04-14-2024 Interpretation and review of laboratory resultsNormalDuke University HospitalCREATININEon 32-01-5574Scdwsqmrte [Mass/Vol]1.03 mg/dLCritically high 0.55-1.02[facility] Rehabilitation HospitalComment on above:Performed By: #### CREA #### [facility] [address] [place] [address] [address] Radha WoodGFR-AF PITCAIRN ISLANDER>60Normal>=60The [facility]beigh HospitalComment on above:Performed By: #### CREA #### [facility] [address] [place] [address] [address] Radha WoodGFR-NON AF FIOICUOI57 mL/min/1.65b0Yansvdwbfj low>=60The [facility]beigh HospitalComment on above:Performed By: #### CREA #### [facility] [address] [place] [address] [address] Radha GalindoXR CHEST 2 Von 06-51-2981BE CHEST 2 VEXAM: XR CHEST 2 V HISTORY: Pneumonia COMPARISON: None. TECHNIQUE: PA and lateral views of the chest. FINDINGS: The cardiomediastinal silhouette is normal. Airspace disease of the lingula. There is no pneumothorax. No pleural effusion is noted. The osseous structures are intact. IMPRESSION: Airspace disease of the lingula. Electronically authenticated by: AURORA HERNANDEZ Date: 2022-12-27 11:35[facility] HospitalMRI LSPINE WO CONon 39-81-4476GUF LSJAMESTOWN WO CONEXAMINATION: MRI LSPINE WO CON HISTORY: [...] Electronically authenticated by: BRANDON CRUZ Date: 2022-12-15 12:14NoWVUMedicine Barnesville HospitalRESPIRATORY PANEL PLUSon 52-58-2019KhrfznohcvObg detectedNormal NOT DETECTEDThe [facility]beigh HospitalComment on above:Performed By: #### RSPLUS ####[facility] [address] [place] [address]DrInna Joyce ParapertusisNot detectedNormalNOT DETECTEDThe [facility] Comment on above:Performed By: #### RSPLUS ####[facility] [address]cy[address] [place] [address]4911DrInna Kiser. PertussisNot detected NormalNOT DETECTEDThe [facility]igh HospitalComment on above:Performed By: #### RSPLUS ####[facility] Mth[address]woxdx[address] [place] [address]Dr. Radha MateoChlamydia PneumoniaeNot detectedNormalNOT DETECTEDThe [facility]igh HospitalComment on above:Performed By: #### RSPLUS ####[facility] Iisnjwgjos[address] [place], [place] [address]Dr. Judyricky Galindo Coronavirus 229ENot detectedNormalNOT DETECTEDThe [facility]igh HospitalComment on above:Performed By: #### RSPLUS ####[facility] Vghaeynfcb[address] [place], [place] [address]Dr. Radha ChangCoronavirus XQB0Nzl detectedNormalNOT DETECTEDThe [facility]igh HospitalComment on above:Performed By: #### RSPLUS ####[facility] Fpplhyfucg[address] [place], [place] [address]Dr. Radha ChangCoronavirus OE29Feg detectedNormalNOT DETECTEDThe [facility] Comment on above:Performed By: #### RSPLUS ####[facility] Wcczfmlmnz[address] [place], [place] [address]Dr. Radha ChangCoronavirus OR78Oqb detected NormalNOT DETECTEDThe [facility]igh HospitalCommclaren lapeer region on above:Performed By: #### RSPLUS ####[facility] Eqlhcarsfr[address] [place], [place] [address]Dr. Radha GalindoInfluenza A H1Not detectedNormalNOT DETECTEDThe [facility]igh HospitalComment on above:Performed By: #### RSPLUS ####[facility] Xnafvuonty[address] [place], [place] [address]Dr. Radha GalindoInfluenza A H1 2009Not detectedNormalNOT DETECTEDThe [facility]igh HospitalComment on above: Performed By: #### RSPLUS ####[facility] Fblzhbthmu[address] [place], [place] [address]Dr. Judylan MateoInfluenza A H3Not detectedNormalNOT DETECTEDThe [facility]igh HospitalComment on above:Performed By: #### RSPLUS ####[facility] Hpomngeabe[address] [place], [place] [address]Dr. Radha ChangInfluenza BNot detectedNormalNOT DETECTEDThe [facility]igh HospitalComment on above:Performed By: #### RSPLUS ####[facility] Yvlxnrwjkf[address] [place], [place] [address]Dr. Radha GalindoMetapneumovirusNot detectedNormal NOT DETECTEDThe [facility]igh HospitalComment on above:Performed By: #### RSPLUS ####[facility] Unmceosjms[address] [place] [address]Dr. Radha GalindoMycoplas. PneumoniaeNot detectedNormalNOT DETECTEDThe [facility]igh HospitalComment on above:Performed By: #### RSPLUS ####[facility] Grgvxphvlq[address] [place], [place] [address]Dr. Radha GalindoParainfluenza 1Not detectedNormalNOT DETECTEDThe [facility]igh HospitalComment on above:Performed By: #### RSPLUS ####[facility] Jicrhfwquo[address] [place], [place] [address]Dr. Radha GalindoParainfluenza 2Not detectedNormalNOT DETECTEDThe [facility]igh HospitalComment on above:Performed By: #### RSPLUS ####[facility] Itvwqzcuzy[address] [place], [place] [address]Dr. Radha Galindo Parainfluenza 3Not detectedNormalNOT DETECTEDThe [facility]igh HospitalComment on above:Performed By: #### RSPLUS ####[facility] Bktcxnkyaj[address] [place], [place] [address]Dr. Radha GalindoParainfluenza 4Not detectedNormalNOT DETECTEDThe [facility]igh HospitalComment on above:Performed By: #### RSPLUS ####[facility] Twchaknhdl[address] [place], [place] [address]Dr. Radha GalindoRhino/EnterovirusNot detectedNormalNOT DETECTEDThe [facility] Comment on above:Performed By: #### RSPLUS ####[facility] Pbosyhzgxp72[address] [place], [place] [address]Dr. Radha Arzola Header 1RESPIRATORY PANEL: VIRUSESNormalThe [facility]igh HospitalComment on above:Performed By: #### RSPLUS ####[facility] Ggimsuvxjs[address] [place], [place] [address]Dr. Yilan ChangRP2 Header 2RESPIRATORY PANEL: BACTERIATrumbull Memorial HospitalCommclaren lapeer region on above:Performed By: #### RSPLUS ####[facility] Tkmltnddcq2[address] [place] [address]Dr. Radha GalindoRSVNot detectedNormalNOT DETECTEDThe [facility] on above:Performed By: #### RSPLUS ####[facility] Csnxmtmtmn[address] [place] [address]Dr. Radha Buitrago-CoV-2 (COVID-19) RNA SUSAN+probe Ql (Unsp spec)Not detectedNormalNOT DETECTEDThe [facility]igh HospitalCommclaren lapeer region on above:Performed By: #### RSPLUS ####[facility] Wiqqjuppyg[address] [place] [address]Dr. Radha GalindoXR CHEST 2 Von 02-50-4217YT CHEST 2 VEXAMINATION: XR CHEST 2 V [...] Electronically authenticated by: BRANDON CRUZ Date: 2022-09-07 12:18[facility] AUTO DIFFon 02-84-1080LIZW #0.1 103/ulNormal0.0-0.1[facility] on above:Performed By: #### CBC ####[facility] Eqkfndelam[address] [place], [place] [address]Dr.Radha GalindoBasophils/100 WBC (Bld)0.6 %Normal0.2-2.0[facility] on above:Performed By: #### CBC ####[facility] Reivjrznpv[address] [place], [place] [address]Dr.Radha ChangEO #0.2 103/ulNormal0.0-0.7The [facility] HospitalComment on above:Performed By: #### CBC ####[facility] Maoxfzhemj[address] [place], [place] [address]Dr.Radha ChangEosinophils/100 WBC (Bld)1.3 %Normal 0.9-7.0The [facility]igh HospitalComment on above:Performed By: #### CBC ####[facility] Ngydfibqsd[address] [place], [place] [address]Dr.Radha Galindo Erythrocyte distribution width (RBC) [Ratio]14.6 %Iybxuc60.0-15.0The [facility] HospitalComment on above:Performed By: #### CBC ####[facility] Urcpuhfxxj[address] [place], [place] [address]Dr.Radha ChangHematocrit (Bld) [Volume fraction]45.1 %Ddvxpr89.0-48.0The [facility] HospitalComment on above:Performed By: #### CBC ####[facility] Cozlafkdki[address] [place], [place] [address]Dr.Radha ChangHemoglobin (Bld) [Mass/Vol]14.9 g/dL Losgmh44.0-16.0The [facility] HospitalComment on above:Performed By: #### CBC ####[facility] Jgkidadoly[address] [place], [place] [address]Dr. Radha ChangIG #0.06 10e3/ulCritically high0.00-0.03The [facility] HospitalComment on above:Performed By: #### CBC ####[facility] Pywxquhgwu[address] [place], [place] [address]Dr.Radha ChangIG %0.4 %Normal0.0-0.5The [facility] HospitalComment on above:Performed By: #### CBC ####[facility] Zfxexuwdpp28[address] [place], [place] [address]Dr.Radha ChangLYMPH #3.7 103/ulNormal1.2-3.8The [facility] HospitalComment on above:Performed By: #### CBC ####[facility] Ecwhoniezl[address] [place], [place] [address]Dr. Yilan ChangLymphocytes/100 WBC (Bld)27.7 %Teudgd55.5-60.0The [facility] Comment on above:Performed By: #### CBC ####[facility] Zgpczvwtxi[address] [place] [address]Dr.Radha GalindoMANUAL DIFF REQNONormalThe [facility] HospitalComment on above:Performed By: #### CBC ####[facility] Oweqvhhmzw[address] [place], [place] [address]Dr.Radha GalindoH (RBC) [Entitic mass]31.6 fkFllvst66.7-34.0The [facility]igh HospitalComment on above: Performed By: #### CBC ####[facility] Xizviumjqt[address] [place], [place] [address]Dr.Radha GalindoHC (RBC) [Mass/Vol]33.0 g/dLNormal 29.9-35.2The [facility] HospitalComment on above:Performed By: #### CBC ####[facility] Skjzkilple[address] [place], [place] [address]Dr. Radha GalindoV (RBC) [Entitic vol]95.6 mGSxihxm53.0-99.0The [facility] Comment on above:Performed By: #### CBC ####[facility] Tfvuxusgeb[address] [place], [place] [address]Dr.Radha GalindoMONO #0.7 103/ulNormal0.3-0.8 The [facility]igh HospitalComment on above:Performed By: #### CBC ####[facility] Ibrszvmlac[address] [place], [place] [address]Dr.Radha Galindo Monocytes/100 WBC (Bld)5.3 %Normal1.7-12.0The [facility]igh HospitalComment on above: Performed By: #### CBC ####[facility] Hzivpjcctp[address] [place], [place] [address]DrInnaRadha GalindoNEUT #8.8 103/ulCritically high1.4-6.5 The [facility]igh HospitalComment on above:Performed By: #### CBC ####[facility] Hgnqbvxqaj6[address] [place] [address]Dr.Radha Galindo Neutrophils/100 WBC (Bld)64.7 %Nikomx16.0-75.0The [facility] HospitalComment on above:Performed By: #### CBC ####[facility] Cmnrntsnvd[address] [place] [address]Dr.Radha GalindoPlatelet mean volume (Bld) [Entitic vol] 9.1 fLCritically low9.5-13.5The [facility] HospitalComment on above:Performed By: #### CBC ####[facility] Wdvgllnwot4[address] [place] [address]Dr.Radha GalindoPLT318 103/zrPrjnjp491-846Wum [facility] HospitalComment on above:Performed By: #### CBC ####[facility] Ryrbmmiezv[address] [place], [place] [address]Dr.Radha GalindoRBC4.72 106/ulNormal4.20-5.40The [facility]igh HospitalComment on above:Performed By: #### CBC ####[facility] Doxetpfjwb[address] [place], [place] [address]Dr.Radha GalindoWBC13.5 103/ul Critically high4.0-11.0The [facility]igh HospitalComment on above:Performed By: #### CBC ####[facility] Nogxvghvpv[address] [place], [place] [address]Dr. Radha GalindoCRPon 66-31-2968FKU3.3 mg/dLNormal<=1.0The [facility] HospitalComment on above:Performed By: #### BMP, CRP #### [facility] [address] [place] [address] Dr. Radha GalindoPROF CHEM 8 (BAS METB)on 27-26-1469Invps gap [Moles/Vol]13.7 mmol/LNormalThe [facility]igh HospitalComment on above:Performed By: #### BMP, CRP #### [facility] [address] [place] [address] Dr. Radha GalindoCalcium [Mass/Vol]9.5 mg/dLNormal8.5-10.1[facility] Comment on above:Performed By: #### BMP, CRP #### [facility] [address] [address] [address] Radha GalindoChloride [Moles/Vol]104 mmol/TLspnmc88-728Jgq [facility] Comment on above:Performed By: #### BMP, CRP #### [facility] [address] [address] [address] Radha GalindoCO2 [Moles/Vol]27.0 mmol/KNqgxhe79.0-32.0The [facility] Comment on above:Performed By: #### BMP, CRP #### [facility] [address] [address] [address] Radha GalindoCreatinine [Mass/Vol]1.01 mg/dLNormal0.55-1.02The [facility] HospitalComment on above:Performed By: #### BMP, CRP #### [facility] [address] [address] [address] Garcia ChangEGFR-AF PITCAIRN ISLANDER>60Normal>=60The [facility] HospitalComment on above:Performed By: #### BMP, CRP #### [facility] [address] [address] [address] Radha WoodGFR-NON AF RFQPYGVE73 mL/min/1.07e9Lczcfvqyxr low>=60The [facility] HospitalComment on above:Performed By: #### BMP, CRP #### [facility] [address] [address] [address] Radha GalindoGlucose [Mass/Vol]137 mg/dLCritically gcyl17-127Frq [facility] HospitalComment on above:Performed By: #### BMP, CRP #### [facility] [address] [address] [address] Radha GalindoPotassium [Moles/Vol]3.7 mmol/LNormal3.5-5.1[facility] Comment on above:Performed By: #### BMP, CRP #### [facility] [address] [address] [address] Radha GalindoSodium [Moles/Vol]141 mmol/IUduuwc532-049Fnp [facility] Comment on above:Performed By: #### BMP, CRP #### [facility] [address] [address] [address] Radha Lim nitrogen [Mass/Vol]11.0 mg/dLNormal7.0-18.0The [facility] HospitalComment on above:Performed By: #### BMP, CRP #### [facility] [address] [address] [address] Radha Lim nitrogen/Creatinine [Mass ratio]10.9 mg/mgNormalThe [facility]igh HospitalComment on above:Performed By: #### BMP, CRP #### [facility] [address] [address] [address] Radha Soliz RATE WESTERGRENon 81-68-5476YUG RATE18 mm/hrNormal<=30The [facility] HospitalComment on above:Performed By: #### SEDR ####[facility] Haeopeexar[address] [place] [address]Dr. Radha Dickersonvid-19 PCR (CVDTBH)on 56-46-5056JTVO-CoV-2 (COVID-19) RNA SUSAN+probe Ql (Unsp spec)Not detectedNormalNOT DETECTEDThe [facility] HospitalCommclaren lapeer region on above:Result Comment: This test is not yet approved or cleared by the [place] FDA. When there are no FDA-approved or cleared tests available, and other criteria are met, FDA can make tests available under an emergency access mechanism called an Emergency Use Authorization (EUA). The EUA for this test is supported by the [place] of Health and Human Service's (HHS's) declaration [...] consistent with SARS-CoV-2.Performed By: #### CVDTBH #### [facility] [address] [place] [address] [address] [address] Radha Chadwickd-19 PCR ([facility])on 47-89-2710YGCU-CoV-2 (COVID-19) RNA SUSAN+probe Ql (Unsp spec)Not detectedNormalNOT DETECTEDThe [facility] Comment on above:Result Comment: This test is not yet approved or cleared by the [place] FDA. When there are no FDA-approved or cleared tests available, and other criteria are met, FDA can make tests available under an emergency access mechanism called an Emergency Use Authorization (EUA). The EUA for this test is supported by the [place] Supervisor of Health and Human Service's (HHS's) declaration [...] consistent with SARS-CoV-2.Performed By: #### CVDTBH #### [facility] [address] [place] [address] Radha Hammeralbumin (with Creat)on 19-77-4257yJBD<1.2LowNorthern Terry Medical SpecialistComment on above:Result Comment: Unable to calculate mALB/Crea ratio, mALB is <1.2 mg/dL mALB reference range not established.Performed By: #### mALBC #### [facility] [address] [place], [place] [id number] mg/qCDhkpjn91-187Zzdbusgu Terry Machine Installer Comment on above:Performed By: #### mALBC #### [facility] [address] [place], [place] [id number] Blood Count with Auto Diffon 12-27-9999Uchdtnpqo (Bld) [#/Vol]0.07 10*3/uLNormal0.00-0.20[facility] SpecialistComment on above:Performed By: #### CMP, CBCAD, VITD, LIPD #### [facility] [address] [place], [place] [id number]/100 WBC (Bld)0.6 %[facility] SpecialistComment on above:Performed By: #### CMP, CBCAD, VITD, LIPD #### [facility] [address] [place], [place] [id number] (Bld) [#/Vol]0.17 10*3/uLNormal0.02-0.50[facility] SpecialistComment on above:Performed By: #### CMP, CBCAD, VITD, LIPD #### [facility] [address] [place], [place] [id number]/100 WBC (Bld)1.4 %[facility] SpecialistComment on above:Performed By: #### CMP, CBCAD, VITD, LIPD #### [facility] [address] [place], [place] [address]Issnilfgitv distribution width (RBC) [Ratio]14.1 %Normal 11.0-15.0[facility] SpecialistComment on above:Performed By: #### CMP, CBCAD, VITD, LIPD #### [facility] [address] [place], [place] [id number] (Bld) [Volume fraction]46.1 %Ixqtju88.0-47.0 [facility] SpecialistComment on above:Performed By: #### CMP, CBCAD, VITD, LIPD #### [facility] [address] [place], [place] [address]Zqgqweacal (Bld) [Mass/Vol]15.6 g/jRMeep08.6-15.5[facility] SpecialistComment on above:Performed By: #### CMP, CBCAD, VITD, LIPD #### [facility] [address] [place], [place] [id number] (Bld) [#/Vol]3.0 10*3/uLNormal0.9-3.9NoKettering Health [facility] SpecialistComment on above:Performed By: #### CMP, CBCAD, VITD, LIPD #### [facility] [address], [place] [id number]/100 WBC (Bld)25.9 %NormalNoKettering Health Troy SpecialistComment on above:Performed By: #### CMP, CBCAD, VITD, LIPD #### [facility] [address], [place] [id number] (RBC) [Entitic mass]31.0 xqMwqqlc12.0-33.0NoKettering Health Troy SpecialistComment on above:Performed By: #### CMP, CBCAD, VITD, LIPD #### [facility] [address], [place] [id number] (RBC) [Mass/Vol]33.8 g/wRQjmxyb92.0-36.0NoKettering Health Troy SpecialistComment on above:Performed By: #### CMP, CBCAD, VITD, LIPD #### [facility] [address], [place] [id number] (RBC) [Entitic vol]92 oJKrgedb48-525Ssldskkf [facility] SpecialistComment on above:Performed By: #### CMP, CBCAD, VITD, LIPD #### [facility] [address], [place] [id number] (Bld) [#/Vol]0.8 10*3/uLNormal0.2-0.9NoKettering Health [facility] SpecialistComment on above:Performed By: #### CMP, CBCAD, VITD, LIPD #### [facility] [address], [place] [id number]/100 WBC (Bld)6.8 %NormalC[facility] Clinic [facility] SpecialistComment on above:Performed By: #### CMP, CBCAD, VITD, LIPD #### [facility] [address], [place] [id number] (Bld) [#/Vol]7.6 10*3/uLNormal1.5-7.8[facility] SpecialistComment on above:Performed By: #### CMP, CBCAD, VITD, LIPD #### [facility] [address], [place] [id number]/100 WBC (Bld)64.4 %NormalNortMain Campus Medical Center SpecialistComment on above:Performed By: #### CMP, CBCAD, VITD, LIPD #### [facility] [address], [place] [id number] mean volume (Bld) [Entitic vol]9.50 fLNormal 7.50-12.50NortMain [facility] Center SpecialistComment on above:Performed By: #### CMP, CBCAD, VITD, LIPD #### [facility] [address], [place] [id number] (Bld) [#/Vol]304 10*3/lLSjlsql362-908Swdokjbw [facility] SpecialistComment on above:Performed By: #### CMP, CBCAD, VITD, LIPD #### [facility] [address], [place] [id number] (Bld) [#/Vol]5.03 10*6/uLNormal3.90-5.20[facility] SpecialistComment on above:Performed By: #### CMP, CBCAD, VITD, LIPD #### [facility] [address], [place] [id number]-RT51.6 eJKmsifi57.0-50.0NoKettering Health [facility] Specialist Comment on above:Performed By: #### CMP, CBCAD, VITD, LIPD #### [facility] [address], [place] [id number] (Bld) [#/Vol]11.8 10*3/uLHigh3.8-11.0NoKettering Health Troy SpecialistComment on above:Performed By: #### CMP, CBCAD, VITD, LIPD #### [facility] [address], [place] [id number] Metabolic Panelon 38-84-5860Mlrlgto [Mass/Vol] 4.9 g/dLNormal3.6-5.1[facility] SpecialistComment on above:Performed By: #### CMP, CBCAD, VITD, LIPD #### [facility] [address], [place] [id number]/Globulin [Mass ratio]2.3 {ratio}Normal1.0-2.5NoKettering Health [facility] SpecialistComment on above:Performed By: #### CMP, CBCAD, VITD, LIPD #### [facility] [address], [place] [id number] [Catalytic activity/Vol]82 U/XHyzlxq98-544Yrkpbadf [facility] SpecialistComment on above:Performed By: #### CMP, CBCAD, VITD, LIPD #### [facility] [address], [place] [id number] [Catalytic activity/Vol]44 U/LHigh6-33NoKettering Health Troy SpecialistComment on above:Result Comment: 06/29/2021 Female reference range changed.Performed By: #### CMP, CBCAD, VITD, LIPD #### [facility] [address], [place] [id number] gap [Moles/Vol]17 mmol/KCwzldd10-68Zpyriqun [facility] SpecialistComment on above:Result Comment: Effective 08/04/2019 reference range changed.Performed By: #### CMP, CBCAD, VITD, LIPD #### [facility] [address], [place] [id number] [Catalytic activity/Vol]27 U/LNormal9-34NoKettering Health Troy SpecialistComment on above:Performed By: #### CMP, CBCAD, VITD, LIPD #### [facility] [address], [place] [id number] [Mass/Vol]0.97 mg/dLNormal0.30-1.20[facility] SpecialistComment on above:Performed By: #### CMP, CBCAD, VITD, LIPD #### [facility] [address], [place] [id number]/CREA14 RatioNormal6-22NortMer[facility] Machine Installer Comment on above:Performed By: #### CMP, CBCAD, VITD, LIPD #### [facility] [address], [place] [id number] [Mass/Vol]10.3 mg/dLHigh8.6-10.2[facility] SpecialistComment on above:Performed By: #### CMP, CBCAD, VITD, LIPD #### [facility] [address], [place] [id number] [Moles/Vol]101 mmol/SIltulv88-940Onlnsgiy [facility] SpecialistComment on above:Performed By: #### CMP, CBCAD, VITD, LIPD #### [facility] [address], [place] [id number] [Moles/Vol]25 mmol/TNklvkg23-88Ijeaanfa [facility] SpecialistComment on above:Performed By: #### CMP, CBCAD, VITD, LIPD #### [facility] [address], [place] [id number] [Mass/Vol]1.0 mg/dLNormal0.6-1.4[facility] SpecialistComment on above:Performed By: #### CMP, CBCAD, VITD, LIPD #### [facility] [address] [place], [place] [id number] mL/min/1.51q1Svjvbk>60[facility] SpecialistComment on above:Performed By: #### CMP, CBCAD, VITD, LIPD #### [facility] [address], [place] [id number] mL/min/1.68l0Bbtkue>60[facility] SpecialistComment on above:Performed By: #### CMP, CBCAD, VITD, LIPD #### [facility] [address], [place] [id number] (S) [Mass/Vol]2.1 g/dLNormal1.9-3.7[facility] SpecialistComment on above:Performed By: #### CMP, CBCAD, VITD, LIPD #### [facility] [address] [place], [place] [id number] [Mass/Vol]120 mg/eDHpss28-02Nomjtehx [facility] SpecialistComment on above:Result Comment: For FASTING Glucose --- ADA reference ranges: Normal 65-99 mg/dl Prediabetes 100-125 Diabetes >/= 126Performed By: #### CMP, CBCAD, VITD, LIPD #### [facility] [address] [place], [place] [id number] [Moles/Vol]4.4 mmol/LNormal3.5-5.5NoKettering Health [facility] SpecialistComment on above:Performed By: #### CMP, CBCAD, VITD, LIPD #### [facility] [address], [place] [id number] [Mass/Vol]7.0 g/dLNormal6.1-8.1[facility] SpecialistComment on above:Performed By: #### CMP, CBCAD, VITD, LIPD #### [facility] [address], [place] [id number] [Moles/Vol]139 mmol/HIkvlad778-647Tyntimog [facility] SpecialistComment on above:Performed By: #### CMP, CBCAD, VITD, LIPD #### [facility] [address], [place] [id number] nitrogen [Mass/Vol]13 mg/dLNormal7-25NoKettering Health [facility] SpecialistComment on above:Performed By: #### CMP, CBCAD, VITD, LIPD #### [facility] [address], [place] [id number] A1Con 12-20-6211TEZ360.24NormalNortMain Campus Medical Center SpecialistComment on above:Performed By: #### A1C #### [facility] [address], [place] [id number] (Bld) [Mass fraction]6.2 %High4.0-6.0[facility] SpecialistComment on above:Performed By: #### A1C #### [facility] [address], [place] [id number] Panelon 57-83-3022Kfvyyfwheqh [Mass/Vol]243 mg/dLHigh 125-200[facility] SpecialistComment on above:Result Comment: Low risk < 200mg/dL Borderline risk 201-239 mg/dl High risk > or equal to 240Performed By: #### CMP, CBCAD, VITD, LIPD #### [facility] [address] [place], [place] [id number] in HDL [Mass/Vol]58 mg/dLNormal>40[facility] SpecialistComment on above:Result Comment: High Cardiovascular Risk HDL <40 mg/dL Low Cardiovascular Risk HDL > or equal to 60 mg/dlPerformed By: #### CMP, CBCAD, VITD, LIPD #### [facility] [address], [place] [id number] in LDL [Mass/Vol]154 mg/dLNormalNortMain Campus Medical Center SpecialistComment on above:Result Comment: LDL ATP III CLASSIFICATION LDL less than 100 mg/dl Optimal LDL 100-129 mg/dl Near or above optimal LDL 130-159 Borderline high LDL 160-189 High LDL greater than 189 mg/dl Very HighPerformed By: #### CMP, CBCAD, VITD, LIPD #### [facility] [address], [place] [id number] in VLDL [Mass/Vol]31 mg/dLNormalNoKettering Health Troy SpecialistComment on above:Performed By: #### CMP, CBCAD, VITD, LIPD #### [facility] [address], [place] [id number].total/Cholesterol in HDL [Mass ratio]4 {ratio} NormalNorthonorhealth [facility]sdale thom[facility]ern [facility] SpecialistComment on above:Performed By: #### CMP, CBCAD, VITD, LIPD #### [facility] [address], [place] [id number] [Mass/Vol]154 mg/nZRoyd31-833Rnrlvqok [facility] SpecialistComment on above:Result Comment: TRIG ATPIII CLASSIFICATIONS TRIG less than 150 mg/dl Normal TRIG 150-199 mg/dl Borderline High TRIG 200-500 mg/dl High TRIG greather than 500 mg/dl Very HighPerformed By: #### CMP, CBCAD, VITD, LIPD #### [facility] [address], [place] [id number] D 25-OHon 80-51-9727ZQK D 25 OH73 ng/mlNormal>29 [facility] SpecialistComment on above:Result Comment: Vitamin D Status Deficiency <20 ng/mL Insufficiency 20-29 ng/mL Optimal 30-100 ng/mL Possible Toxicity >=150 ng/mLPerformed By: #### CMP, CBCAD, VITD, LIPD #### [facility] [address] [place], [place] [id number] 67-03-7155YRGLDqocjwcei (ORQ) DHARA DALLAS ([id number]) 1970 F Date Time Provider Department 03/08/21 NAINA OLIVA ORQ During your visit today, we recorded the following information about you: Francisco J Ahuja [facility] 03/08/2021 4:45 PM Signed Patient called requesting a refill for Diclofenac Sod ER 100 mg tab. To send to [facility] at [phone] fax [phone] Francisco J Ahuja [facility] 03/17/2021 1:01 PM Signed Spoke to patient, she stated that got theOral Voltaren Oral Voltaren from her family doctor. 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: Negative for abnormal vaginal bleeding, abnormal vaginal [...] has degenerative di (more content not included)...Normal [facility] OUTSIDE DICOM IMPORT -NBNRon 54-06-4655WW OUTSIDE DICOM IMPORT -NBNRImages were obtained outside of [facility] [id number] Campus Medical CenterXR OUTSIDE CD DICOM IMPORT -NBNRImages were obtained outside of [facility] [id number] Campus Medical Center Vital Signs Date TimeVital SignValuePerforming UgcjfgjaiQlmzpuzw45-91-2163 09:27-0400Body .1 cmRjoo Youssef MD Work Phone: [facility]Xusbiduegi99-83-7019 09:27-0400Body mass index (BMI) [Ratio]36.11 kg/n8PlvstSandy Youssef MD Work Phone: [phone] HospitalNfubhbsjqi57-77-1246 09:27-0400Body cuenqx12.43 kgSandy Youssef MD Work Phone: [phone] CenterC[facility] BransonIcviweqhjk09-52-7437 09:27-0400Diastolic blood mm[Hg]Sandy Youssef MD Work Phone: [phone]ansonKtyviuxode14-05-9053 09:27-0400Heart rate90 /min Sandy Youssef MD Work Phone: [phone] BransonDlyujkifkv59-59-7840 09:27-7357PkG5% (BldA) [Mass fraction]96 %Sandy Youssef MD Work Phone: [phone]ansonWmmfdfxshb44-65-5393 09:27-0400Systolic blood bvzblbhu049 mm[Hg]Sandy Youssef MD Work Phone: [phone] BransonDhueatpqau51-68-0757 09:28-0500Body kyzkef730.1 cmJanel GOLDMAN Work Phone: [phone]ansonPwlquboeuj52-28-6652 09:28-0500Body mass index (BMI) [Ratio]34.71 kg/c0CeqntJanel GOLDMAN Work Phone: [phone] HospitalUomjupdnub44-98-9727 09:28-0500Body ramrrg27.62 kgJanel GOLDMAN Work Phone: [phone] HospitalNqdbfwebcd71-44-4490 09:28-0500Diastolic blood gxegdcym05 mm[Hg]Janel GOLDMAN Work Phone: [phone]ansonChsqrbnsus36-91-0010 09:28-0500Heart rate82 /min Janel Hemmer PA Work Phone: NOChristian HospitalStmocucpik38-60-1876 09:28-0500Respiratory rate16 /minJanel Hemmer PA Work Phone: NOChristian HospitalFjuccluomq74-37-0636 09:28-1404KdV6% (BldA) [Mass fraction]95 %Janel Hemmer PA Work Phone: NOChristian HospitalOdtlqtihtj18-20-7479 09:28-0500Systolic blood ocrqqphr467 mm[Hg]Janel Evansmer PA Work Phone: NOChristian HospitalBkgjepocia33-63-9657 08:33-0500Body .1 Thu Oconnell [employer] Work Phone: NOChristian HospitalMbaaolsuae06-91-2994 08:33-0500Body mass index (BMI) [Ratio]33.48 kg/r4MftqfgMadison Oconnell [employer] Work Phone: [phone] BransonPytscwgoha57-55-5108 08:33-0500Body .26 kgMadison Oconnell [employer] Work Phone: NOChristian HospitalPyfnfjudfn68-56-2499 08:33-0500Diastolic blood zjcljnub55 mm[Hg]Madison Oconnell [employer] Work Phone: NOChristian HospitalJukvhksdgw20-04-7472 08:33-0500Heart yrlv667 /min Madison Oconnell [employer] Work Phone: NOChristian HospitalKkxwpuosgb33-81-5471 08:33-0500Respiratory rate18 /minSchrissy Oconnell [employer] Work Phone: NOChristian HospitalPashytrboh85-03-8386 08:33-3689RvP7% (BldA) [Mass fraction]98 %Madison Oconnell [employer] Work Phone: NOChristian HospitalTcjbuepale93-82-2376 08:33-0500Systolic blood bzbgukbx738 mm[Hg]Madison Oconnell [employer] Work Phone: NOChristian HospitalDebmqtcjni28-92-9901 08:30-0400Body sbjyyt040.1 cmKaren Hemmer PA Work Phone: NOChristian HospitalFetcwbaess16-73-8730 08:30-0400Body mass index (BMI) [Ratio]34.91 kg/x0Ddjxk Hemmer PA Work Phone: NOChristian HospitalFebldwyiix47-96-2640 08:30-0400Body .17 kgBenitoen Hemmer PA Work Phone: NOChristian HospitalPigmoyqcxn36-68-9407 08:30-0400Diastolic blood izffjvta33 mm[Hg]Janel Hemmer PA Work Phone: NOChristian HospitalDkmfpfbvhk43-84-8524 08:30-0400Heart rate99 /min Janel Hemmer PA Work Phone: NOChristian HospitalWqzwarvxao53-81-8056 08:30-0400Respiratory rate16 /minBenitoen Hemmer PA Work Phone: NOChristian HospitalOtjqqtytkr23-90-9510 08:30-8449EbI4% (BldA) [Mass fraction]93 %Janel Hemmer PA Work Phone: NOChristian HospitalKikqrpnclj48-85-5511 08:30-0400Systolic blood mm[Hg]Janel Hemmer PA Work Phone: NOChristian HospitalCcxpemkbpe39-44-9881 13:06-0400Body pglzad175.1 Zoya Youssef MD Work Phone: NOChristian HospitalQxbuwgfacf20-72-2365 13:06-0400Body mass index (BMI) [Ratio]35.11 kg/x7XtsgfSandy Youssef MD Work Phone: NOChristian HospitalGdqimjhjmn20-47-0901 13:06-0400Body .71 kgSandy Youssef MD Work Phone: [place] [address]Rfxrfbxkpk32-10-5660 13:06-0400Diastolic blood zelnkqyr22 mm[Hg]Sandy Youssef MD Work Phone: [place] [address]Seqqltdadp05-50-6478 13:06-0400Heart rate84 /min Sandy Youssef MD Work Phone: [facility]ansonNwtgpstnnc89-91-9644 13:06-6894VnK1% (BldA) [Mass fraction]93 %Sandy Youssef MD Work Phone: [facility]ansonFgrbjctgxo64-87-0096 13:06-0400Systolic blood ujxcikai416 mm[Hg]Sandy Youssef MD Work Phone: [facility]ansonMcktonyahl59-78-3509 09:24-0400Body mzykae164.1 cmSelect [facility]08-24-2024 09:24-0400Body mass index (BMI) [Ratio]35.2 kg/n8XgcwmcsodSelect Medical [facility]health Rehabilitation Hospital08-24-2024 09:24-0400Body wknxfmardgw23 [degF][facility]08-24-2024 09:24-0400Body huqegl65.17 kgSelect Medical [facility]08-24-2024 09:24-0400Diastolic blood xjtyrsrs60 mm[Hg][facility]08-24-2024 09:24-0400 Heart rate74 /[facility]08-24-2024 09:24-0400 Respiratory rate18 /[facility]08-24-2024 09:24-0400 SaO2% (BldA) [Mass fraction]94 %[facility]08-24-2024 09:24-0400Systolic blood xrppsyfy439 mm[Hg][facility] Encounters Encounter DateEncounter TypeCare ProviderFacilityStart: 05-18-2025 End: 87-48-1395WckrptDuvbd M Alda MD Work Phone: [facility] MedinceComment on above:Tremors of nervous system; Anxiety; Migraine without aura and without status migrainosus, not intractableStart: 05-11-2025 End: 88-19-9432rpbjqvhfnjIzdpusk Vytautas Giedraitis MDFacility:VIKI Schultz Start: 04-23-2025 End: 02-89-2662Abvrqobfi Result EncounterGeneric External Data ProviderNOMS External Department UnsolicitedStart: 04-23-2025 End: 71-08-1752Suiyrokqb Result EncounterGeneric External Data ProviderNOMS External Department UnsolicitedStart: 04-07-2025 End: 48-46-0942Wxiwef outpatient visit 25 minutesSandy Youssef MD Work Phone: [facility] HospitaleComment on above:Spinal stenosis of lumbar region, unspecified whether neurogenic claudication present (Primary Dx); Type 2 diabetes mellitus with diabetic nephropathy, without long-term current use of insulin (HCC); Major depressive disorder, single episode, mild ; Essential hypertensionStart: 04-07-2025 End: 41-42-2626ngtetgascwYLGYY M ALDANot AvailableStart: 03-15-2025 End: 23-76-5975GtlrvdBgxig M Alda MD Work Phone: [facility] HospitalnceComment on above:Anxiety Start: 11-23-2024 End: 73-36-9439YqkuhyOoard M Alda MD Work Phone: [facility] CI FMComment on above:Tremors of nervous system; AnxietyStart: 10-13-2024 End: 67-38-8185chhylieuweRLREX M ALDANot AvailableStart: 09-11-2024 End: 03-70-4752Fdnwut Kayy GOLDMAN Work Phone: [facility] FMStart: 09-11-2024 End: 93-61-6279Wrbenl Kayy GOLDMAN Work Phone: [facility] FMStart: 09-11-2024 End: 23-33-4691Dzgtmbrf Result EncounterJanel GOLDMAN Work Phone: [facility] External Department UnsolicitedStart: 09-11-2024 End: 42-48-5705Qquzxi outpatient visit 15 minutesJanel GOLDMAN Work Phone: [facility] FMComment on above:Herpes zoster without complication (Primary Dx); Former smoker; Diabetic nephropathy associated with type 2 diabetes mellitus (HCC) ([facility]/HCC) Start: 09-11-2024 End: 47-99-5800imgojwbgskJTHZLHuyen Montaño AvailableStart: 08-12-2024 End: 61-40-2623Gwvsby Nadya Oconnell [employer] Work Phone: [facility] FMStart: 08-12-2024 End: 01-66-1664Oiunzc Nadya Oconnell [employer] Work Phone: [facility] FMStart: 08-12-2024 End: 09-68-3718Jmqwom outpatient visit 25 minutesShbianca Oconnell [employer] Work Phone: [phone] CI FMComment on above:Pansinusitis, unspecified chronicity (Primary Dx); Type 2 diabetes mellitus with other specified complication (CMS/HCC); Type 2 diabetes mellitus without complications (CMS/HCC); 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); Morbid (severe) obesity due to excess calories (CMS/HCC); Chronic obstructive pulmonary disease, unspecified (CMS/HCC); Other specified chronic obstructive pulmonary disease (CMS/HCC)Start: 08-12-2024 End: 42-19-9785orxtibeugpJEMKXY M SHIVELYNot AvailableStart: 08-11-2024 End: 30-31-2893KefuerIumkf M Alda MD Work Phone: [facility] FMComment on above:AnxietyStart: 07-14-2024 End: 58-03-4412FpwmabXblwyg Rikki AFRICASHE CI FMComment on above:AnxietyStart: 06-18-2024 End: 23-21-0431UnkonbMbvih M Alda MD Work Phone: [facility] FMComment on above:AnxietyStart: 04-28-2024 End: 67-98-5934Qkdftu flowsGill GOLDMAN Work Phone: [facility] FMStart: 04-28-2024 End: 90-54-9994Yilpib Kayy Crowder PA Work Phone: [facility] FMStart: 04-28-2024 End: 36-35-1745Ousexqf encounter statusJanel GOLDMAN Work Phone: [facility] Work Phone: Start: 04-28-2024 End: 98-40-9018Hzsjmqjj preventive med est patient 40-64yrsKara GOLDMAN Work [...] Hot flashes due to menopause; Hypertriglyceridemia (CMS/HCC); 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; Migraine without aura and without status migrainosus, not intractable (CMS/HCC); Piriformis syndrome of left side; Psoriasis (CMS/HCC); Pure hypercholesterolemia (CMS/HCC); Smoker; Surgical menopause; Need for vaccinationStart: 04-28-2024 End: 07-83-1645vsxhcmuzmfSPXGF M HEMMERNot AvailableStart: 04-21-2024 End: 03-22-1976Dtkelabxx Result EncounterGeneric External Data ProviderNOMS External Department UnsolicitedStart: 04-21-2024 End: 78-48-7553Pokqlvbiv Result EncounterGeneric External Data ProviderNOMS External Department UnsolicitedStart: 04-18-2024 End: 17-35-3964Uclnhfitu Result Desi Youssef MD Work Phone: noms External Department UnsolicitedStart: 04-18-2024 End: 25-45-8605Lbxycfxtf Result EncounterSandy Youssef MD Work Phone: [facility] External Department UnsolicitedStart: 04-14-2024 End: 83-06-0920Cmamfh flowsheetSandy Youssef MD Work Phone: [facility] CI FMStart: 04-14-2024 End: 26-86-1907Zahurr flowsWin Youssef MD Work Phone: [facility] FMStart: 04-14-2024 End: 77-72-5191Rzrdbp outpatient visit 25 minutesSandy Youssef MD Work Phone: [facility] CI FMComment on above:Diabetic nephropathy associated with [...] Gastroesophageal reflux disease without esophagitisStart: 04-14-2024 End: 13-82-1628butaelxmduAPGXD M ALDANot AvailableStart: 03-22-2024 End: 78-91-3917awpktfhutoPrdguihuwFirelands Regional Medical Center [facility] Work Phone: Start: 03-22-2024 End: 41-21-7027Oeglopd encounter [facility] Work Phone: Start: 11-63-4738qexhkrnlpcQO RUGEN ALDAFacility:H1 Start: 12-15-2022 End: 81-47-0274hcemmkgekfWENUASX HALKER .Facility:F8Emysc: 12-08-2022 End: 34-30-4545rugiiwowuoUBVZOXKEXBBL LAKSHMIPATHY .Facility:C1Ctpvx: 09-07-2022 End: 60-12-6335oshftrvlvdLR RUGEN ALDAFacility:C2Agala: 09-07-2022 End: 26-78-0122scyxtnfrhwGG AMELIA S WATTS .Facility:F7Npfyc: 06-01-2022 End: 58-50-4203wahumihljzWEAT MCGILL .Facility:Y9Hthzb: 05-16-2022 End: 85-13-6616ncqgmoztwpIZYDY PARKERFacility:E1Rnkpt: 04-06-2022 End: 54-57-9649dnoohsklucOPZJ MCGILL .Facility:S7Rvvfe: 61-15-2258Zqrkvgrjq for preprocedural laboratory examinationDR AMELIA S WATTS .[facility] Start: 03-07-2022 End: 89-72-1159wzukhxxcaqNY AMELIA S WATTS .Facility:Y5Qvmtf: 03-06-2022 End: 73-87-9865eprtwuxskrCW AMELIA S WATTS .Facility:Z5Uqxco: 03-06-2022 End: 03-64-3527Lrmvmytqs for preprocedural laboratory examinationDR AMELIA S WATTS .Facility:H7Isthp: 02-28-2022 End: 25-69-4553scuuzjkvftHO AMELIA S WATTS .Facility:D8Eqlgf: 02-24-2022 End: 30-02-4139bnnpiadlzhNA AMELIA S WATTS .Facility:M2Tyjwc: 01-26-2022 End: 71-24-8184wpbyxqmekkQGKA MCGILL .Facility:I3Syfja: 01-17-2022 End: 65-29-9864wvstohsmljQS RUGEN ALDAFacility:H1 Procedures DateProcedureProcedure DetailPerforming ClinicianStart: 84-67-5784RD LUMBAR SPINE MIN 4VGeneric External Data ProviderStart: 46-56-6620ZE SACROILIAC JOINT Generic External Data ProviderStart: 97-58-4651Xmsjamkqfm glycosylated t1hRoxewSandy Youssef MD Work Phone: Start: 89-49-9070Hbdqcbxkau test result abnormal Abnormal laboratory test resultSandy Youssef MD Work Phone: Start: 35-25-2632Exsjb albumin quantitativeJanel GOLDMAN Work Phone: Start: 93-73-7437VV CHEST WO CONGeneric External Data ProviderStart: 01-11-8946GE TOMOSYNTHESIS SCREENING Milla Youssef MD Work Phone: Start: 53-51-3237LbnhzhkuthaIuyxt Hemmer PA Work Phone: Start: 04-92-7426Cgyalebbtb glycosylated l1sFdmweSandy Youssef MD Work Phone: Start: 12-26-2022 End: 37-41-6154Cxmfnng of total hysterectomyH/O total hysterectomySandy Youssef MD Work Phone: Start: 80-67-2605AqjbdvektlpWyorp Alda MD Work Phone: Start: 31-16-5127RalleikyfajCikyl Alda MD Work Phone: Start: 11-11-2015H/O: hysterectomyHistory of hysterectomySandy Youssef MD Work Phone: H/O: hysterectomyHistory of hysterectomyJanel GOLDMAN Work Phone: Plan of Treatment DateCare ActivityDetailAuthorStart: 57-52-0099Ymjyvtglp for malignant neoplasm of colonNOMS HealthcareStart: 46-35-4385Jgdhi screening for proteinDiabetes: Urine Protein ScreeningNOMS HealthcareStart: 07-13-2025 End: 60-13-6127Tpdyumz encounter myvynppaq36/15/2025 8:15 AM EST Office Visit [facility] [place] [facility] [address] [address] [place] [id number] Sandy Youssef MD [address] [place] [address] [facility] [place] Ram MedinceStart: 07-07-2025 Hemoglobin A1c measurementDiabetes: Hemoglobin K3YUPSW HealthcareStart: 33-60-0728Ecjjm screening for proteinDiabetes: Urine Protein ScreeningNOWY HealthcareStart: 04-20-2025 End: 25-60-8914Sgvtjvu encounter procedureNOMS CI FMStart: 36-54-0542Rhrnlkmnu for malignant neoplasm of breastMammogramNOWY HealthcareStart: 33-71-2519MXNUR- 19 Vaccine ( season)COVID-19 Vaccine ( season)[facility] HealthcareStart: 26-11-9011Phifgpyfd vaccinationNOWY HealthcareStart: 01-13-2025 Hemoglobin A1c measurementDiabetes: Hemoglobin X0OZJGR HealthcareStart: 10-13-2024 End: 47-72-3721Soekgfr encounter nezszkgbq34/17/2025 9:00 AM EDT Office Visit [facility] [address] [place] [address] Sandy Youssef MD [address] [place] [address] [facility] CI FMStart: 09-11-2024 End: 06-99-0332Glcchapgjotl/Creatinine panel in random UrineMicroalbumin / creatinine urine ratio Lab Routine Diabetic nephropathy associated with type 2 diabetes mellitus (HCC) (CMS/HCC) Expected: 09/11/2024 (Approximate), Expires: 09/11/2025[facility] Work Phone: Comment on above:Expected: 09/11/2024 (Approximate), Expires: 09/11/2025Start: 09-11-2024 End: 88-74-6879Oelzkom encounter cnopitafm01/13/2025 9:30 AM EST Office Visit [facility] [address] [place] [address] Janel Crowder PA [address] [place] [address] ArrivedNOMS CI FMComment on above:ArrivedStart: 08-12-2024 End: 24-40-2516Xlnowdu encounter procedureNOMS CI FMComment on above:Arrived Start: 16-27-0567Baipaqsqwx A1c measurementDiabetes: Hemoglobin O2DOCFA HealthcareStart: 04-28-2024 End: 71-35-3695Ckarglt encounter fwscokkmz15/30/2024 8:30 AM EDT Office Visit [facility] [address] [place] [phone] Janel Crowder PA [address] [place] [address] ArrivedNOWY CI FMComment on above:ArrivedStart: 04-14-2024 End: 29-06-1482AFK panel - Blood by Automated countCBC Lab Routine Essential hypertension (CMS/HCC) Type 2 diabetes mellitus with other specified compl ication, without long-term current use of insulin (CMS/HCC) Diabetic nephropathy associated with type 2 diabetes mellitus (HCC) (CMS/HCC) Pure hypercholesterolemia (CMS/HCC) Expected: 04/14/2024 (Approximate), Expires: 04/14/2025NOWY HealthcareComment on above:Expected: 04/14/2024 (Approximate), Expires: 04/14/2025Start: 04-14-2024 End: 21-28-7735Lfhzlilflbdxw metabolic 2000 panel - Serum or PlasmaComprehensive metabolic panel Lab Routine Essential hypertension (CMS/HCC) Type 2 diabetes mellituswith other specified complication, without long-term current use of insulin (CMS/HCC) Diabetic nephropathy associated with type 2 diabetes mellitus (HCC) (CMS/HCC) Pure hypercholesterolemia (CMS/HCC)Expected: 04/14/2024 (Approximate), Expires: 04/14/2025NOWY HealthcareComment on above:Expected: 04/14/2024 (Approximate), Expires: 04/14/2025Start: 04-14-2024 End: 54-26-0946Decol 1996 panel - Serum or PlasmaLipid panel Lab Routine Essential hypertension (CMS/HCC) Type 2 diabetes mellitus with other specified complication, without long-term current use of insulin (CMS/HCC) Diabetic nephropathy associatedwith type 2 diabetes mellitus (HCC) (CMS/HCC) Pure hypercholesterolemia (CMS/HCC) Expected: 04/14/2024 (Approximate), Expires: 04/14/2025NOWY HealthcareComment on above:Expected: 04/14/2024 (Approximate), Expires: 04/14/2025Start: 04-14-2024 End: 01-30-5607MD Breast - bilateral ScreeningBilateral screening mammogram Imaging Routine Encounter for screening mammogram for malignant neoplasm of breast Expected: 04/14/2024, Expires: 06/14/2025[facility] Work Phone: Comment on above:Expected: 04/14/2024, Expires: 06/14/2025Start: 04-14-2024 End: 67-26-7407Qplqkyr encounter /16/2024 1:00 PM EDT Office Visit [facility] [address] [facility] [address] [place] [address] Sandy Youssef MD [address] [facility] [address] [place] [address] ArrivedNOMS CI FMComment on above:ArrivedStart: 04-09-2024 Urine screening for proteinDiabetes: Urine Protein ScreeningNOWY Healthcare Start: 03-50-2914Fofqkhvqe vaccinationInfluenza Vaccine (#1)[facility] Start: 93-83-2730Gieedpwhps A1c measurementDiabetes: Hemoglobin B8DJYFO HealthcareStart: 98-98-0024Vcpzffiad for malignant neoplasm of breastMammogram NOM HealthcareStart: 75-08-3652Zbeiiqltd B Vaccines (1 of 3 - 19+ 3-dose series)Hepatitis B Vaccines (1 of 3 - 19+ 3-dose series)NOM HealthcareStart: 18-70-1930Ykiojifcabbq Vaccine: Pediatrics (0 to 5 Years) and At-Risk Patients (6 to 64 Years) (1 of 2 - PCV)Pneumococcal Vaccine: Pediatrics (0 to 5 Years) and At-Risk Patients (6 to 64 Years) (1 of 2 - PCV)NOM HealthcareStart: 12-37-6651Ccijzyws screeningDiabetes: Retinopathy ScreeningNOWY HealthcareStart: 46-46-8045UMrJ/Tdap/Td Vaccines (1 - Tdap)DTaP/Tdap/Td Vaccines (1 - Tdap)NOM HealthcareStart: 33-19-5617MUK Vaccines (1 of 1 - Standard series)MMR Vaccines (1 of 1 - Standard series)NOMS HealthcareStart: 80-73-5660Uwetjvugt for malignant neoplasm of colonCENTRAL VAL[facility] Healthcare Immunizations Immunization DateImmunizationNotesCare RrdvtkzaPotqprei49-18-9680dzihxd vaccine- recombinant adjuvanted (Shingrix) 50 MCG/0.5ML vaccineJanel GOLDMAN Work Phone: [phone]ansonSjojpslpyh99-05-9192zblwnswhzsbv conjugate 20- valent (Prevnar 20) 0.5 ML vaccineJanel GOLDMAN Work Phone: [phone]ansonUzwusnliny07-54-2734ulwvnfdat, injectable, quadrivalent, preservative freeSandy Youssef MD Work Phone: [phone]ansonSeqaqqeacu69-22-3669Lpkzqqs Bivalent Booster VaccinationSandy Youssef MD Work Phone: [phone] [place], [place] [address]Ermwsnqfns28-23-4753ILRG-DPT-6 (COVID-19) vaccine, mRNA, spike protein, LNP, bivalent, preservative free, 30 mcg/0.3 mL dose, maria esther-sucrose formulationSandy Youssef MD Work Phone: [phone] BransonQpnstqpara23-47-9209jqzzkyzru virus vaccine, unspecified formulationSandy Youssef MD Work Phone: [phone] [place], [place] [address]Dofaiutfya18-91-9250Kvamtdzod, injectable, Madin Ayana Canine Kidney, preservative free, quadrivalentSandy Youssef MD Work Phone: [phone] [place] [address] Payers DatePayer CategoryPayerPolicy [id number] Health InsuranceHEALTHSCOPE Member Subscriber Plan / Payer (Effective 2022-Present) Name: Dhara Dallas ID: [id number] Relation to Subscriber: Self Name: Dhara Dallas Payer ID: Not on file Type: Not on file Address: [place] [id number] 1.2.840.971458.1.13.693.2.7.3.947[id number] 2.16.840.1.459110.3.57[id number] 2.16840.1.246150.3.57[id number] 2.16.840.1.475629.3.57[id number] 2.840.1.858957.3.57[id number] 2.840.1.078419.3.579.2.[id number] 2.840.1.683399.3.57[id number] 2.840.1.255610.3.57[id number] 2.840.1.763898.3.579.2.85246-14-8627Txjrvwj1103665 2.840.1.539177.3.579.[id number] 2.840.1.320341.3.579.2.89141-36-2662Tqntkol0428869 2.840.1.371222.3.57[id number] 2.840.1.512981.3.57[id number] 2.840.1.944585.3.579.2.29118-63-5401Srgakow9250253 2.16.840.1.402213.3.579.2.54855-48-0206Qvgqzgk45931058 2.16.840.1.907446.3.579.2.049135-90-6465Vkmwgna4026005 2.16.840.1.278437.3.579.2.114923-64-5154Jirimnm3695310 2.16.840.1.640478.3.579.2.089187-00-0451Tuvsuqh9516558 2.16.840.1.182822.3.579.2.679146-87-2545Ecztpjs4043498 2.16.840.1.923978.3.579.2.839942-90-7635Ysghtsu3519360 2.16.840.1.251058.3.579.2.15[id number] 2.16.840.1.587382.3.579.2.73586-94-3243Udlazaz2809404120-62-6148Mmyskfg903257063 Social History DateTypeDetailFacilityStart: 09-87-1724Clyzxmz smoking status NHISSmoker (finding)[facility] 46-54-9695[facility] 01-01-2023 End: 73-85-5309Yhxgjei smoking status NHISSmokes tobacco dailyNOMS Healthcare Work Phone: Start: 20-09-0580Vwnsywo of tobacco useCigarette SmokerNOMS HealthcareStart: 01-01-2023 End: 81-92-5257Tdcqiwh use and exposureSmokeless tobacco non-userNOMS Healthcare Start: 04-14-2024 End: 16-12-5228Qiuroanhg beverage intakeCurrent drinker of alcohol (finding)[facility] HealthcareStart: 10-22-2023 End: 11-88-1717Iobiaji of Social functionNOMS HealthcareStart: 10-22-2023 End: 70-07-9070Fqjtsk connection and isolation panelCENTRAL VALLEY MEDICAL CENTER HealthcareStart: 25-31-3432Gj a typical week, how many times do you talk on the telephone with family, friends, or neighbors?Patient declinedNOWY HealthcareAre you now , , , , never or living with a partner? MarriedCENTRAL VALLEY MEDICAL CENTER HealthcareIn the past 12 months, was there a time when you were not able to pay the mortgage or rent on time?NoNOMS HealthcareStart: 05-12-2023 Alcohol Comment1-2 drinks monthly or less, caffeine yes coffee,sodaNOMS HealthcareStart: 37-58-2228Dcv assigned at birthNot on fileCENTRAL VALLEY MEDICAL CENTER HealthcareStart: 26-38-5118Ykspnyz smoking status NHISEx-smokerCENTRAL VALLEY MEDICAL CENTER Healthcare Goals DatePatient GoalDesired Activity/StatePersonal health goal Functional Status YynpGuodapbkbzIyvqnrEweomgqc09-81-7148Rzdgmet Health Questionnaire 2 item (PHQ- 2) [Reported][facility]Tciqcsxuzb85-60-5874Jvllwmk Health Questionnaire 2 item (PHQ- 2) [Reported][facility] Clinical Notes 12-22-2020 to 04-07-2025 Note Date & ZqrpImngRdhnmfre92-41-9894 History of Present illness Narrative* Sandy Youssef [...] being taken. She does not see a practice clinician. Over the past 2 weeks, how often [...] tablet 3 montelukast (Singulair) 10 MG tablet krcmwwvlaazx-ummg-vthtlfar-folic acid (Centrum Silver, geriatric,) tablet as directed Orally nystatin (Mycostatin) 225546 UNIT/ML suspension OLANZapine (ZyPREXA) 10 MG tablet [...] Recheck, Anxiety Meds F/U. documented in this encounterCox BransonTgrosdthbm87-07-4791 History of Present illness Narrative* SUSI Martin [...] tablet 3 montelukast (Singulair) 10 MG tablet bxnrydgqdhcs-xacx-xktxbcvq-folic acid (Centrum Silver, geriatric,) tablet as directed Orally nystatin (Mycostatin) 587874 UNIT/ML suspension OLANZapine (ZyPREXA) 10 MG tablet [...] associated with type 2 diabetes mellitus (HCC) ([facility]/HCC) - Microalbumin / creatinine urine ratio; Future Urine sample obtained today for Microalbumin testing. Follow up for Appointment As Scheduled. documented in this encounterCox BransonZefhbhteww63-75-1212 History of Present illness Narrative* Madison Oconnell [...] CAPSULE BY MOUTH DAILY 100 capsule 1 Oxgjuiwdncm-Vpikfkgbe-Dukvra (Trelegy Ellipta) 100-62.5-25 MCG/ACT aerosol powder Inhale [...] tablet 1 montelukast (Singulair) 10 MG tablet ullwolcmpyek-ucuv-ciyvlzcd-folic acid (Centrum Silver, geriatric,) tablet as directed Orally nystatin (Mycostatin) 987980 UNIT/ML suspension OLANZapine (ZyPREXA) 10 MG tablet [...] disease Respiratory failure with hypoxia (CMS/[facility]) 01/11/2023 Sepsis (CMS/[facility]) 01/11/2023 Past Surgical History: Procedure [...] Type 2 diabetes mellitus with diabetic nephropathy ([facility]) We discussed today, the importance [...] Morbid (severe) obesity due to excess calories ([facility]) Discussed goal of BMI < [...] No follow-ups on file. documented in this [facility]11-20-2024 Telephone encounter Note* Telephone Encounter - SUSI Martin - 06/18/2024 10:03 AM EST OARRS reviewed, Rx [facility]'s pharmacy. [facility]vqlvcgsm27-96-0637 Miscellaneous Notes* Telephone Encounter - SUSI Martin - 06/18/2024 10:03 AM EST OARRS reviewed, Rx sent into patient's pharmacy. documented in this [facility]09-30-2024 History of Present illness Narrative* SUSI [...] CAPSULE BY MOUTH DAILY 100 capsule 1 Afodrowsbpn-Wifoxyjnu-Tihtrn (Trelegy Ellipta) 100-62.5-25 MCG/ACT aerosol powder Inhale [...] tablet 1 montelukast (Singulair) 10 MG tablet omcfrhjfkpye-qvgc-glqrllon-folic acid (Centrum Silver, geriatric,) tablet as directed Orally nystatin (Mycostatin) 616447 UNIT/ML suspension OLANZapine (ZyPREXA) 10 MG tablet [...] time. Severe persistent asthma with acute exacerbation ([facility]) This is a chronic medical condition that is stable since last assessment. No changes in treatment are suggested at this time. COPD with chronic bronchitis ([facility]) This is a chronic medical condition that is stable since last assessment. No changes in treatment are suggested at this time. Essential hypertension ([facility]) Patient's blood pressure is currently [...] time. Stage 3a chronic kidney disease (HCC) ([facility]) This is a chronic medical [...] associated with type 2 diabetes mellitus (HCC) ([facility]) Will continue to monitor with routine HgbA1c. Morbid (severe) obesity due to excess calories ([facility]) Encouraged portion control, decrease simple sugars and carbohydrates, gradually increase activity level. Aim for continued gradual steady weight loss. Type 2 diabetes mellitus with other specified complication, without long-term current use of insulin ([facility]) Will continue to monitor with routine HgbA1c. Type 2 diabetes mellitus without complication, without long-term current use of insulin ([facility]/HCC) - semaglutide (Ozempic, 1 MG/DOSE,) [...] Will continue to monitor with routine labs. 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 documented in this encounterCox BransonHfxqceikgb48-13-9289 History of Present illness Narrative* Sandy Youssef [...] being taken. She does not see a practice clinician. Current Outpatient Medications on File Prior to [...] CAPSULE BY MOUTH DAILY 100 capsule 1 Ldfmskxolai-Dvkvmiban-Exadmj (Trelegy Ellipta) 100-62.5-25 MCG/ACT aerosol powder Inhale 1 puff in the morning. 1 each 11 gabapentin (Neurontin) 300 MG capsule loratadine (Claritin) 10 MG tablet 1 (one) time each day at the same time. metFORMIN (Glucophage) 500 MG tablet TAKE ONE TABLET BY MOUTH DAILY WITH A MEAL 100 tablet 1 dcqrgelmehnh-selb-eiomnpqh-folic acid (Centrum Silver, geriatric,) tablet as directed Orally nystatin (Mycostatin) 424611 UNIT/ML suspension OLANZapine (ZyPREXA) 10 MG tablet [...] (around 10/12/2024) for Diabetes. documented in this encounterCox BransonFkbrqasimf43-88-2443 NotePROCEDURE: XR SACRUM_COCCYX COMPARISON: None. HISTORY: Lumbar [...] Electronically authenticated by: BRANDON CRUZ Date: 2022-12-15 08:23[facility]02-09-2023 NoteCONSULTATION CONSULTATION DATE: 09/07/2022 HISTORY OF [...] otherwise indicated. Patient agrees with this plan.[facility] 09-07-2022 NoteCONSULTATION PROCEDURE DATE: 09/07/2022 PREOPERATIVE [...] be followed up in the office. [facility] HospitalHxphevjd38-18-6369 NoteCONSULTATION CONSULTATION DATE: 06/01/2022 HISTORY OF PRESENT [...] in three months' time unless otherwise indicated.[facility] HospitalHnopxgrk04-27-2930 Note CONSULTATION PROCEDURE DATE: 06/01/2022 PREOPERATIVE DIAGNOSIS: [...] will be followed up in the office.[facility] HospitalZawxkfxs37-43-8866 NoteCONSULTATION PROCEDURE DATE: 04/06/2022 PRE AND POSTOPERATIVE [...] will be followed up in the clinic.[facility] 04-06-2022 NoteCONSULTATION CONSULTATION DATE: 04/06/2022 HISTORY [...] is to continue with her multivitamin regimen.[facility] HospitalXoocdbxx23-96-9462 NoteCONSULTATION CONSULTATION DATE: 01/26/2022 This is a [...] be followed up in the office post-procedure. [facility] Signed and Approved by: GRANT MCGILL . 02/02/2022 16:26:00[facility]05-26-2021 NoteHNO ID: [id number] Author: Naina Oliva MD Service: ? 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 It is unl (more content not included)...[facility] SystemEvaluation noteNo assessment information availableMarymount Hospital Work Phone: Evaluation note* Diagnosis Morbid [...] Anxiety state, unspecified documented in this encounter [facility] HealthcareEvaluation note* Diagnosis Diabetic nephropathy associated [...] esophagitis Esophageal reflux documented in this encounter [facility] HealthcareEvaluation note* Diagnosis Morbid obesity [...] type 2 diabetes mellitus (HCC) (CMS/[facility]) Morbid (severe) obesity due to excess calories ([facility]) Type 2 diabetes mellitus with other specified complication, without long-term current use of insulin (CMS/HCC) Type 2 diabetes mellitus without complication, without long-term current use of insulin ([facility]) Adjustment disorder with anxiety (CMS/[facility]) Adjustment disorder with anxiety Seasonal allergic rhinitis due to pollen Depressive disorder ([facility]/HCC) Depressive disorder, not elsewhere classified Dizziness Dizziness and giddiness History of hysterectomy Acquired absence of both cervix and uterus Hot flashes due to menopause Hypertriglyceridemia (CMS/HCC) Pure hyperglyceridemia 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 Migraine [...] pulmonary disease (CMS/HCC) documented in this encounter [facility] HealthcareEvaluation note* Diagnosis Morbid obesity (CMS/HCC)- Primary [...] complication, without long-term current use of insulin ([facility]/HCC) Anxiety Anxiety state, unspecified Gastroesophageal [...] associated with type 2 diabetes mellitus (HCC) ([facility]/HCC) Tremors of nervous system Anxiety Anxiety state, unspecified documented in this encounter [facility] HealthcareEvaluation note* Diagnosis Morbid obesity (CMS-HCC)- Primary [...] Anxiety state, unspecified documented in this encounter [facility] HealthcareEvaluation note* Diagnosis Morbid obesity ([facility]-HCC)- Primary Morbid obesity Type 2 diabetes mellitus without complication, without long-term current use of insulin (HCC) Essential hypertension Unspecified essential hypertension Smoker Tobacco use disorder Dizziness Dizziness and giddiness Migraine without aura and without status migrainosus, not intractable Acute exacerbation of chronic obstructive pulmonary disease ([facility]) Obstructive chronic bronchitis with exacerbation Nicotine dependence, cigarettes, with unspecified nicotine-induced disorders- Primary Type 2 diabetes mellitus with other specified complication, without long-term current use of insulin ([facility]) Adjustment disorder with anxiety Adjustment disorder with anxiety Migraine without aura and without status migrainosus, not intractable Pure hyperglyceridemia (E78.1) Pure hyperglyceridemia Stage 3a chronic kidney disease ([facility]) Diabetic nephropathy associated with type 2 diabetes mellitus (HCC)- Primary Essential hypertension Unspecified essential hypertension Encounter for screening mammogram for malignant neoplasm of breast Type 2 diabetes mellitus with other specified complication, without long-term current use of insulin ([facility]) Morbid (severe) obesity due to excess calories ([facility]) Body mass index (BMI) 37.0-37.9, [...] nephropathy associated with type 2 diabetes mellitus ([facility]) Spinal stenosis of lumbar region, unspecified whether neurogenic claudication present- Primary Type 2 diabetes mellitus with diabetic nephropathy, without long-term current use of insulin ([facility]) Major depressive disorder, single episode, mild Major depressive disorder, single episode, mild Essential hypertension Unspecified essential hypertension documented in this encounter [facility] HealthcareEvaluation note* Diagnosis Morbid obesity ([facility]-HCC)- Primary Morbid obesity Type 2 [...] long-term current use of insulin ([facility]) Adjustment disorder with anxiety Migraine without aura and without status migrainosus, not intractable Pure hyperglyceridemia (E78.1) Pure hyperglyceridemia Stage 3a chronic kidney disease ([facility]) Diabetic nephropathy associated with type 2 diabetes mellitus (HCC)- Primary Essential hypertension Unspecified essential hypertension Encounter for screening mammogram for malignant neoplasm of breast Type 2 diabetes mellitus with other specified complication, without long-term current use of insulin ([facility]) Morbid (severe) obesity due to excess calories ([facility]) Body mass index (BMI) 37.0-37.9, [...] long-term current use of insulin ([facility]) Diabetic nephropathy associated with type 2 diabetes mellitus ([facility]) Spinal stenosis of lumbar region, unspecified whether neurogenic claudication present- Primary Type 2 diabetes mellitus with diabetic nephropathy, without long-term current use of insulin ([facility]) Major depressive disorder, single episode, mild [...] section and content) DATE CREATED AUTHOR 08/30/2021 [facility] DATE CREATED AUTHOR AUTHOR'S ORGANIZ JONATHAN 12/15/2021 [employer] DATE CREATED AUTHOR AUTHOR'S ORGANIZ ATION 01/05/2023 [facility] DATE CREATED AUTHOR AUTHOR'S ORGANIZ ATION 09/14/2024 [facility] DATE CREATED AUTHOR AUTHOR'S ORGANIZ ATION 04/09/2025 [facility] EPIC DATE CREATED AUTHOR AUTHOR'S ORGANIZ ATION 05/16/2025 [facility] Care Teams (unrecognized sec tion and content) Team Status: Active Member Role Status Dates Sandy Youssef MD Primary Care Provider Active Team Status: Inactive Member Role Status Dates Sandy Youssef MD Primary Care Provider Active S tart: March 22, 2024 End: March 22, 2024Kentrell Diana ProviderActiveStart: March 22, 2024 End: March 22, 2024Team MemberRelationshipSpecialtyStart DateEnd Date Sandy Youssef MD [address] [facility] [address] [place] [address] PCP - Generalmi Medicine12/21/22Team MemberRelationshipSpecialtyStart DateEnd Date Sandy Youssef MD [address] [facility] [address] [place] [address] PCP - GeneralFamily Medicine12/21/22Team MemberRelationshipSpecialtyStart DateEnd Date Sandy Youssef MD [address] [facility] [address] [place] [address] PCP - GeneralFamily Medicine12/21/22Team MemberRelationshipSpecialtyStart DateEnd Date Sandy Youssef MD [address] [facility] [address] [place] [address] PCP - GeneralFami Medicine12/21/22Team MemberRelationshipSpecialtyStart DateEnd Date Sandy Youssef MD [address] [place] [address] [place] [address] PCP - GeneralFamily Medicine12/21/22Team MemberRelationshipSpecialtyStart DateEnd Date Sandy Youssef MD [address] [place] [address] [place] [address] PCP - GeneralFamily Medicine523Team MemberRelationshipSpecialtyStart DateEnd Date Sandy Youssef MD [address] [place] [address] [place] [address] PCP - GeneralFamily Medicine12/21/22Team MemberRelationshipSpecialtyStart DateEnd Date Sandy Youssef MD [address] [place] [address] [place] [address] PCP - GeneralFamily Medicine12/21/22Team MemberRelationshipSpecialtyStart DateEnd Date Sandy Youssef MD [address] [place] [address] [place] [address] PCP - GeneralFamily Medicine12/21/22Team MemberRelationshipSpecialtyStart DateEnd Date Sandy Youssef MD [address] [place] [address] [place] [address] PCP - GeneralFamily Medicine12/21/22Team MemberRelationshipSpecialtyStart DateEnd Date Sandy Youssef MD [address] [place] [address] [place] [address] PCP - GeneralFamily Medicine23Team MemberRelationshipSpecialtyStart DateEnd Date Sandy Yosusef MD [address] [place] [address] [place] [address] PCP - GeneralFamily Medicine12/21/22Team MemberRelationshipSpecialtyStart DateEnd Date Sandy Youssef MD [address] [facility] [address] [place] [address] PCP - [facility]12/21/22Team MemberRelationshipSpecialtyStart DateEnd Date Sandy Youssef MD [address] [facility] [address] [place] [address] PCP - [facility]12/21/22Te MemberRelationshipSpecialtyStart DateEnd Date Sandy Youssef MD [address] [facility] [address] [place] [address] PCP - [facility]12/21/22Te MemberRelationshipSpecialtyStart DateEnd Date Sandy Youssef MD [address] [facility] [place] [address] PCP - [facility]12/21/22 Goals (unrecognized section and content) Goals may be documented in a n alternate section Reason for Visit (unrecogniz ed section and content) ReasonCommentsMed RefillReasonCommentsDiabetesLast A1c was 6.5ReasonOnset Date CommentsMed [id number]st 5.7 FOR RECORDS PERTAINING TO PATIENTS WHO [...] BE BASED ON THE PRIMARY CLINICAL RECORDS. [facility] [employer] [facility]. provides no warranty or guarantee of the accuracy or completeness of information in this document.
--- OUTSIDE RECORDS SUMMARY | 2025-06-29 07:06 | XMS_ITS | Patient Health Record ---
Author Organization [facility] [place] Address [address] [place] [address] Care Team Providers Care [employer] Name Role Phone Josey Gonsalez MD Primary Care Provider Anders Bartlett Unavailable [phone] Allergies Allergen (clinical drug ingredient) Drug/Non Drug [...] Administration Date Status Comme nts Flu, Fluzone (15145) 6 mos+, single-dose syringe/vial (3542-8993) Unknown 06/15/2022 Administered SARS-COV-2 (COVID 19) bivalent 30 mcg/0.3 ml owjoZkdomtk20/17/2022dministered Social History Tobacco Use: Social History Observation [...] Status W/U Status Risk Notes Problem Obesity (995569838) Obesity, unspecified (E66.9) ActiveconfirmedProblemUncomplicated moderate persistent asthma (611276040) Moderate persistent asthma, uncomplicated (J45.40)ActiveconfirmedProblemLong- term current use of inhaled steroid (132818394)assisted (current) use of inhaled steroids (Z79.51)ActiveconfirmedProblemChronic obstructive pulmonary disease (13295396)Chronic obstructive pulmonary disease (J44.9)Activeconfirmed ProblemHypertension (69708757)Hypertension (I10)ActiveconfirmedProblemCOPD - Chronic obstructive pulmonary disease (70295193)COPD (chronic obstructive pulmonary disease) (J44.9)ActiveconfirmedProblemChronic kidney disease (848479774)Chronic kidney disease (N18.9)ActiveconfirmedProblemMental disorder caused by drug (088051510)Cigarette nicotine dependence with nicotine-induced disorder (F17.219)ActiveconfirmedProblemLaboratory test result abnormal (551537348)Abnormal laboratory test (R89.9)ActiveconfirmedProblemLung field abnormal (680824190)Ground glass opacity present on imaging of lung (R91.8) ActiveconfirmedProblemRenal cyst (858887984)Bilateral renal cysts (N28.1)Active confirmedProblemBody mass index 35.00 to 39.99 (478306568514689)Body mass index [BMI] 37.0-37.9, adult (Z68.37)Activeconfirmed Encounters Encounter Location Date Provider Diagnosis Pulmonary Medicine [place] [address] [place] [address] 03/18/2025 Anders Hickey Plan Of Treatment Pending [...] Coverage End Date [employer] [address] [address] [place] [address] [id number] Nesha Dallas Self - patient is the [...]
[2025-06-29 07:42] VITALS: BP 134/74; PULSE 72; TEMP 36.7; O2SAT 97
[2025-06-29 08:22] VITALS: BP 165/87; BP 174/84; PULSE 66; PULSE 70; O2SAT 96
[2025-06-29] MEDS: LIDOCAINE HCL 2% 400 MG/20 ML MDV INJ (08:23)
[2025-06-29] MEDS: BUPIVACAINE HCL 0.25% PF 25 MG/10 ML VIAL 8 ML INJ (08:23)
--- NOTE | 2025-06-29 08:25 | W.PM.PROCNOT ---
Date of procedure: 06/29/25 Pre-op diagnosis: Pain due to lumbar spondylosis without myelopathy Post-op diagnosis: same as pre-op Procedure: Procedure: Bilateral L4-5, L5-S1 medial branch block Medications: Bupivacaine 0.25% 6cc The patient was seen and examined in the preoperative holding area.? An informed consent was obtained and placed on the chart.? The patient was brought to the medical procedure unit and placed in the prone position.? A timeout was completed verifying correct patient, procedure site, positioning, plan, and special equipment.? Using aseptic technique, the needle was placed at left L4. Under direct fluoroscopic visualization a Quincke-tipped spinal needle was advanced to the junction of the superior articulating process with the transverse process at the designated medial branch segment.? Preceded by negative aspiration, the above-mentioned injectate was placed in 1 mL aliquots.? The procedure was repeated at left L5, S1.? The needle was removed and insertion site was covered. The same procedure, at the same levels, was completed on the right side. The patient was taken to the postprocedural recovery area and monitored for an appropriate length of time before found suitable for discharge in the company of a responsible adult. Anesthesia: Local Surgeon: Yamile Lopez Pathology: none sent Condition: stable Disposition: no change
== END 2025-06-29 08:29 | disposition home or self-care (01) ==
PROVIDERS: PCP Family Medicine; Visit Provider Anesthesiology
DX: M47.816 Spondylosis without myelopathy or radiculopathy, lumbar region (principal); M54.50 Low back pain, unspecified; G89.29 Other chronic pain
CPT/HCPCS: 64493; 64494; J0665

== ENCOUNTER 2025-07-09 07:36 | Outpatient (OUT) | payer OTHER, SELFPAY ==
--- OUTSIDE RECORDS SUMMARY | 2025-05-05 02:30 | XMS_ITS ---
Author Organization The [facility] in [place] Address [address] [place] [address] Care Team Providers Care Job Boss Name Role Phone Josey Gonsalez MD Primary Care Provider Anders Bartlett Unavailable [phone] REASON FOR VISIT 1 year F/U Asthma/COPD Encounters Encounter Location Date Provider Diagnosis Pulmonary Medicine [address] [address] 05/05/2025 Anders Hickey Plan Of Treatment No Information Progress Notes * Nesha DALLAS ADOB:[birth year] (54 yo F)Acc No.[id number]:05/05/2025 UNLOCKED PROGRESS NOTE Follow Up Patient: Corine DELACRUZ Nesha Ziyad :?Anders Hickey DODOB:1970???Age:54 Y ???Sex:FemaleDate:05/05/2025Phone:[phone]:[address] [id number]:Josey Gonsalez MD Subjective: * Chief Complaints: * 1 . 1 year F/U Asthma/COPD. * Medical History: Objective: * Vitals: Assessment: Plan: * Treatment: * * Electronic signature of Anders Hickey DO on 07/09/2025 at 07:52 AM ESTSign off status: PendingVisit Status:?OFF CANC (OFFICE CANCEL) * Provider: Kim Hickey DO Date: 1 Generated for Printing/Faxing/eTransmitting on:?07/09/2025 07:52 AM EST
--- OUTSIDE RECORDS SUMMARY | 2025-07-09 07:39 | XMS_ITS | CCD ---
Author Organization [facility] Care Team Providers Care Epic Prelude Analyst Name Role Phone WATTS ., DR AMELIA [...] Allergen(s)Allergy TypeDate of OnsetReaction(s) Facility (1 source)HYDROmorphoneDrug [id number] (20 sources)HYDROmorphoneDrug Eorngsg43-75-0463XvnudxkITOY [facility] Medications Current Medications MedicationDrug Class(es)DatesSig (Normalized)Sig (Original)[id number] 200 actuat albuterol 0.09 mg/actuat metered dose inhaler (20 sources)beta2-Adrenergic AgonistStart: 32-15-2490xaozqayhk HFA 90 mcg/act inhaler 12/21/2022 Activealbuterol 0.833 mg/ml / ipratropium bromide 0.167 mg/ml inhalation solution (20 sources)Anticholinergic, beta2-Adrenergic AgonistStart: 09-30-2023 ipratropium-albuterol (Duo-Neb) 0.5-2.5 mg/3 mL nebulizer solution 09/30/2023 ActiveALPRAZolam 0.5 mg oral tablet (20 sources)BenzodiazepineStart: 04-14-2024 End: 12-22-4043guci 1 tablet by mouth once daily in the morning, then take 1 tablet by mouth once daily at bedtimeALPRAZolam (Xanax) 0.5 MG tablet Indications: Anxiety TAKE 1 TABLET BY MOUTH EVERY MORNING AND TAKE1 TABLET BY MOUTH EVERY NIGHT AT BEDTIME 60 tablet 05/18/2025 06/17/2025 ActiveamLODIPine 5 mg oral tablet (20 sources)Dihydropyridine Calcium Channel BlockerStart: 04-07-2025 End: 52-69-1533ugla 1 tablet by mouth once dailyamLODIPine (Norvasc) 5 MG tablet Indications: Essential hypertension Take 1 tablet (5 mg) by mouth Daily 04/07/2025 ActiveStart: 08-19-2024 End: 59-01-2019nkya 1 tablet by mouth once dailyamLODIPine (Norvasc) 10 MG tablet Indications: Essential hypertension TAKE 1 TABLET BY MOUTH DAILY 100 tablet 3 08/19/2024 04/07/2025 Discontinued (Reorder)Start: 56-77-8351kihm 1 tablet by mouth once dailyamLODIPine (Norvasc) 10 MG tablet Indications: Essential hypertension (CMS/HCC) TAKE ONE TABLET BY MOUTH DAILY 100 tablet 3 08/14/2023 Activeaspirin 81 mg delayed release oral tablet (20 sources)Platelet Aggregation Inhibitor, Nonsteroidal Anti-inflammatory Drug aspirin 81 MG EC tablet 1 (one) time each day at the same time. Active atorvastatin 40 mg oral tablet (20 sources)HMG-CoA Reductase InhibitorStart: 67-58-3756kgsq 1 tablet by mouth once dailyatorvastatin (Lipitor) 40 MG tablet Indications: Hypertriglyceridemia TAKE 1 TABLET BY MOUTH DAILY 100 tablet 3 08/19/2024 ActiveStart: 31-13-6611spuw 1 tablet by mouth once dailyatorvastatin (Lipitor) 40 MG tablet Indications: Hypertriglyceridemia (CMS/HCC) TAKE 1 TABLET BY MOUTH DAILY 100 tablet 1 02/11/2024 Activeazithromycin 250 mg oral tablet (4 sources)Macrolide AntimicrobialStart: 08-05-2024 End: 00-78-8298dzfp 2 tablets by mouth once daily, then [...] 5 mg oral tablet (20 sources)Muscle RelaxantStart: 19-19-6218xmln 1 tablet by mouth three times dailycyclobenzaprine (Flexeril) 5 MG tablet Indications: Tremors of nervous system TAKE 1 TABLET BY MOUTH 3 TIMES A DAY 90 tablet 1 05/18/2025 ActiveStart: 02-02-2025 End: 60-54-7739fhtg 1 tablet by mouth three times dailycyclobenzaprine (Flexeril) 5 MG tablet Indications: Tremors of nervous system TAKE 1 TABLET BY MOUTH 3 TIMES A DAY 90 tablet 1 02/02/2025 05/18/2025 DiscontinuedStart: 70-47-8016uonk 1 tablet by mouth three times dailycyclobenzaprine (Flexeril) 5 MG tablet Indications: Tremors of nervous system TAKE 1 TABLET BY MOUTH 3 TIMES A DAY 90 tablet 1 11/24/2024 ActiveStart: 07-07-2024 End: 44-39-5659dovk 1 tablet by mouth three times dailycyclobenzaprine (Flexeril) 5 MG tablet Indications: Tremors of nervous system TAKE 1 TABLET BY MOUTH 3 TIMES A DAY 90 tablet 1 07/07/2024 11/24/2024 DiscontinuedStart: 25-21-6625bcnq 1 tablet by mouth three times dailycyclobenzaprine (Flexeril) 5 MG tablet Indications: Tremors of nervous system TAKE 1 TABLET BY MOUTH 3 TIMES A DAY 90 tablet 1 04/22/2024 ActiveStart: 73-83-8156cnpm 5 mg by mouth once daily at bedtimeCyclobenzaprine Active 5 MG PO Daily at bedtime March 22, 2024 12:00amStart: 28-80-3911dtcw 1 tablet by mouth three times daily cyclobenzaprine (Flexeril) 5 MG tablet Indications: Tremors of nervous system TAKE ONE TABLET BY MOUTH THREE TIMES A DAY 90 tablet 1 11/26/2023 Active Dextromethorphan-buPROPion ER (Auvelity) 45-105 MG tablet controlled-release (4 sources)Start: 04-07-2025 End: 69-78-3914yngr 45-105 mg by mouth once dailyDextromethorphan-buPROPion ER (Auvelity) 45-105 MG tablet controlled-release Indications: Major depressive disorder, single episode, mild Take 1 tablet by mouth Daily 30 tablet 04/07/2025 05/07/2025 Iklbxi38 hr diclofenac sodium 100 mg extended release oral tablet (20 sources)Nonsteroidal Anti-inflammatory DrugStart: 46-34-2694odom 1 tablet by mouth once dailydiclofenac sodium (Voltaren XR) 100 mg 24 hr tablet Indications: Dizziness TAKE 1 TABLET BY MOUTH DAILY 30 tablet 2 04/21/2025 ActiveStart: 43-10-5347plpy 1 tablet by mouth once dailydiclofenac sodium (Voltaren XR) 100 mg 24 hr tablet Indications: Dizziness TAKE 1 TABLET BY MOUTH DAILY 30 tablet 2 12/29/2024 ActiveStart: 79-77-7184dseu 1 tablet by mouth once dailydiclofenac sodium (Voltaren XR) 100 mg 24 hr tablet Indications: Dizziness TAKE 1 TABLET BY MOUTH DAILY 30 tablet 2 09/15/2024 ActiveStart: 03-22-2024 End: 62-44-7805Qpbywqlvfc Sodium Discontinued MG PO March 22, 2024 12:00am March 22, 2024 9:35amStart: 07-60-5476mrrs 1 tablet by mouth once daily diclofenac [...] capsule (20 sources)Serotonin and Norepinephrine Reuptake InhibitorStart: 69-41-6179jldd 1 capsule by mouth once dailyDULoxetine (Cymbalta) [address] capsule Indications: Depressive disorder Take 1 capsule (30 mg) by mouth Daily 100 capsule 3 02/16/2025 ActiveStart: 72-65-0822cmxm 1 capsule by mouth once dailyDULoxetine (Cymbalta) [address] capsule Indications: Depressive disorder (CMS/HCC) TAKE 1 CAPSULE BYMOUTH DAILY 30 capsule 2 10/20/2024 ActiveStart: 16-37-7869rntz 1 capsule by mouth once dailyDULoxetine (Cymbalta) [address] capsule Indications: Depressive disorder TAKE 1 CAPSULE BY MOUTH DAILY 100 capsule 3 08/19/2024 ActiveStart: 91-34-9260jpnt 1 capsule by mouth once dailyDULoxetine (Cymbalta) [address] capsule Indications: Depressive disorder (CMS/HCC) TAKE 1 CAPSULE BY MOUTH DAILY 30 capsule 2 07/21/2024 ActiveStart: 60-48-9994wqaw 1 capsule by mouth once dailyDULoxetine (Cymbalta) [address] capsule Indications: Depressive disorder (CMS/HCC) TAKE 1 CAPSULE BYMOUTH DAILY 30 capsule 2 04/18/2024 Active Start: 68-73-4043lohq 1 capsule by mouth once dailyDULoxetine (Cymbalta) [address] capsule Indications: Depressive disorder (CMS/HCC) TAKE 1 CAPSULE BYMOUTH DAILY 100 capsule 1 02/11/2024 ActiveStart: 26-41-6645jqof 30 mg by mouth once dailyDuloxetine Active 30 MG PO Daily March 22, 2024 12:00am in addition to 60mg30 actuat fluticasone furoate 0.1 mg/actuat / umeclidinium 0.0625 mg/actuat / vilanterol 0.025 mg/actuat dry powder inhaler (12 sources)Anticholinergic, Corticosteroid, beta2-Adrenergic AgonistStart: 02-01-2023 End: 07-78-1449ovuw 1 puff(s) by inhalation in the morning Dsyvrqrhrtq-Yjfwctfao-Eezrui (Trelegy Ellipta) 100-62.5-25 MCG/ACT aerosol powder Indications: Acute exacerbation of chronic obstructive pulmonary disease (CMS/HCC) Inhale 1 puff in the morning. 1 each 02/01/2023 08/12/2024 Discontinued (Therapy completed)furosemide 20 mg oral tablet (20 sources)Loop DiureticStart: 88-39-3838oqdh 1 tablet by mouth once daily furosemide (Lasix) 20 MG tablet Indications: Essential hypertension TAKE 1 TABLET(20 MG) BY MOUTH DAILY 100 tablet 1 11/04/2024 ActiveStart: 02-11-2024 End: 43-15-1638muqz 1 tablet by mouth once dailyfurosemide (Lasix) 20 MG tablet Indications: Essential hypertension (CMS/HCC) Take 1 tablet (20 mg)by mouth Daily 100 tablet 1 04/14/2024 Activegabapentin 300 mg oral capsule (14 sources)Anti-epileptic AgentStart: 09-11-2024 End: 24-11-8292xjks 1 capsule by mouth in the morning, [...] days. 30 capsule 09/11/2024 ActiveStart: 12-16-2022 End: 85-54-4651zxdbhgfdwr (Neurontin) 300 MG capsule 12/16/2022 04/28/2024 Discontinued (Other)loratadine 10 mg oral tablet (20 sources)loratadine (Claritin) 10 MG tablet 1 (one) time each day at the same time. ActivemetFORMIN hydrochloride 500 mg oral tablet (20 sources)BiguanideStart: 73-55-1122krqn 1 tablet by mouth once daily at mealtimemetFORMIN (Glucophage) 500 MG tablet Indications: Hypertriglyceridemia TAKE 1 TABLET BY MOUTH DAILYWITH A MEAL 100 tablet 3 08/19/2024 ActiveStart: 13-81-3884utvy 1 tablet by mouth once daily at mealtimemetFORMIN (Glucophage) 500 MG tablet Indications: Hypertriglyceridemia (CMS/HCC) TAKE ONE TABLET BY MOUTH DAILY WITH A MEAL 100 tablet 1 02/11/2024 ActivemethylPREDNISolone (2 sources)CorticosteroidStart: 08-12-2024 End: 21-75-9929pgeywfZCNSAEAjjxbu (Medrol Dospak) 4 MG tablets Indications: Pansinusitis, unspecified chronicity Follow schedule on package instructions 21 tablet 08/12/2024 08/19/2024 Activemontelukast 10 mg oral tablet (20 sources)Leukotriene Receptor AntagonistStart: 89-24-7562nlyfaccxyjq (Singulair) 10 MG tablet 09/16/2023 Sszbmabknxpypuifzw-omer-hbhcioji-folic acid (Centrum Silver, geriatric,) tablet (20 sources)xznhpzxjuiph-ixqy-rhapkwms-folic acid (Centrum Silver, geriatric,) tablet as directed Orally Activenystatin 800929 unt/ml oral suspension (20 sources)Polyene AntifungalStart: 24-11-3936ytmyfgjo (Mycostatin) 901751 UNIT/ML suspension 09/07/2022 Activeofloxacin 3 mg/ml ophthalmic solution (6 sources)Quinolone AntimicrobialStart: 03-22-2024 End: 00-97-0354sruywfycd (Ocuflox) 0.3 % ophthalmic solution Four times daily 03/22/2024 04/28/2024 Discontinued (Therapy completed)Start: 10-72-7096fphn 1 drop(s) into the eye(s) four times dailyOfloxacin Active 2 DROPS OPHTHALMIC Four times daily 12 03March 22, 2024 12:00am right eyeOLANZapine 10 mg oral tablet (20 sources)Atypical AntipsychoticStart: 92-18-2411vcgt 1 tablet by mouth once dailyOLANZapine (ZyPREXA) 10 MG tablet Indications: Adjustment disorder with anxiety TAKE 1 TABLET BY MOUTH DAILY 100 tablet 3 08/19/2024 ActiveStart: 21-29-1171dinr 1 tablet by mouth once dailyOLANZapine (ZyPREXA) 10 MG tablet Indications: Adjustment disorder with anxiety (CMS/HCC) TAKE 1 TABLET BY MOUTH DAILY 100 tablet 1 02/11/2024 Activeomeprazole 40 mg delayed release oral capsule (20 sources)Proton Pump InhibitorStart: 04-14-2024 End: 75-43-9917kigt 1 capsule by mouth once daily before mealtimeomeprazole (PriLOSEC) [address] capsule Indications: Gastroesophageal reflux disease without esophagitis TAKE 1 CAPSULE BY MOUTH EVERY MORNING BEFORE MEALS, DO NOT CRUSH OR CHEW 100 capsule 3 07/21/2024 Activeondansetron 4 mg oral tablet (11 sources)Serotonin-3 Receptor AntagonistStart: 01-17-2024 End: 52-02-9170jhyi 1 tablet by mouth every six hours as needed for nausea and vomitingondansetron (Zofran) 4 MG tablet TAKE 1 TABLET BY MOUTH EVERY 6 HOURS NEEDED FOR NAUSEA AND VOMITING 01/17/2024 08/12/2024 Discontinued (Therapy completed)Ozempic, 1 MG/DOSE, 4 MG/3ML solution pen-injector (4 sources)Start: 10-09-2024 End: 04-50-8487Zstqdbs, 1 MG/DOSE, 4 MG/3ML solution pen-injector 10/09/2024 04/07/2025 Discontinued (Therapy completed)Start: 66-23-8452Afrrpaf, 1 MG/DOSE, 4 MG/3ML solution pen-injector 10/09/2024 Activepotassium chloride 10 meq extended release oral tablet (20 sources)potassium chloride CR (Klor-Con) 10 MEQ ER tablet every 12 (twelve) hours. Activerimegepant 75 mg disintegrating oral tablet (20 sources)Start: 55-46-8368yhgc 1 tablet by mouth every other dayRimegepant Sulfate (Nurtec) 75 MG tablet dispersible Indications: Migraine without aura and withoutstatus migrainosus, not intractable DISSOLVE 1 TABLET BY MOUTH EVERY OTHER DAY FOR PREVEBTATIVE 15 tablet 2 05/18/2025 ActiveStart: 12-29-2024 End: 30-05-8415uzov 1 tablet by mouth every other dayRimegepant [...] 30 tablet 11 10/23/2023 ActiveSemaglutide (1 source)Start: 72-21-5305frskte 1 mg by subcutaneous injection every week Semaglutide (Ozempic) 1 mg/dose (4 mg/3 mL) pen injector Active 1 MG SUBCUT every week February 12:00am1 mg dose 1.5 ml semaglutide 1.34 mg/ml pen injector (20 sources)Start: 11-05-2024 End: 74-27-3442uqlrrr 1 mg by subcutaneous injection every weeksemaglutide (Ozempic, 1 MG/DOSE,) 2 MG/1.5ML solution pen-injector Indications: Type 2 diabetes mellitus without complication, without long-term current use of insulin (HCC) Inject 1 mg under the skin 1 (one) time per week 3 mL 5 11/05/2024 04/07/2025 Discontinued (Therapy completed)Start: 10-23-2023 End: 04-08-3412ovvfwa 1 mg by subcutaneous injection every weeksemaglutide (Ozempic, 1 MG/DOSE,) 2 MG/1.5ML solution pen-injector Indications: Type 2 diabetes mellitus without complication, without long-term current use of insulin (CMS/HCC) Inject 1 mg under theskin 1 (one) time per week 3 mL 5 04/28/2024 ActiveSemaglutide, 2 MG/DOSE, 8 MG/3ML solution pen-injector (5 sources)Start: 04-07-2025 End: 82-43-2744jwmwdo 2 mg by subcutaneous injection every weekSemaglutide, 2 MG/DOSE, 8 MG/3ML solution pen-injector Indications: Type 2 diabetes mellitus with diabetic nephropathy, without long-term current use of insulin (HCC) Inject 2 mg under the skin 1 (one) time per week 9 mL 04/07/2025 07/16/2025 Active traMADol hydrochloride 50 mg oral tablet (20 sources)Opioid AgonistStart: 81-03-1532ywyo 1 tablet by mouth four times daily as neededtraMADol (Ultram) 50 MG tablet Indications: Other chronic pain TAKE ONE TABLET BY MOUTH FOUR TIMES A DAY NEEDED 120 tablet 02/22/2023 Active valACYclovir 1000 mg oral tablet (3 sources)Herpesvirus Nucleoside Analog DNA Polymerase Inhibitor, Herpes Simplex Virus Nucleoside Analog DNA Polymerase Inhibitor, Herpes Zoster Virus Nucleoside Analog DNA Polymerase InhibitorStart: 09-11-2024 End: 02-11-9568anof 1 tablet by mouth in the morning, [...] anxious mood; Translations: [Adjustment disorder with anxiety]Onset: 774120-27-4278LhbtaltWvyusdo disorders (8 sources)Anxiety; Translations: [Anxiety disorder, unspecified]06-18-2024 ChronicAsthma (20 sources)Asthma; Translations: [Unspecified asthma, uncomplicated]Onset: 693998-10-6453SspeiwiBnllhyl kidney disease (20 sources)Chronic kidney disease stage 3A ; Translations: [Stage 3a chronic kidney disease (HCC)]Onset: 203960-21-0490RuvmiugCgzvppa obstructive pulmonary disease and bronchiectasis (20 sources)Emphysematous bronchitis; 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]Onset: 12-26-2022 Resolved: 388659-39-5437UwwqebtDkzrkdhrxphqp of surgical procedures or medical care (20 sources)Postsurgical menopause; Translations: [Asymptomatic postprocedural ovarian failure]Onset: 533087-14-8061PhmyiljByuskupk mellitus with complications (20 sources)Renal disorder due to type 2 diabetes mellitus; Translations: [Type 2 diabetes mellitus with diabetic nephropathy]Onset: hronic Diabetes mellitus without complication (20 sources)Type 2 diabetes mellitus; Translations: [Type 2 diabetes mellitus without complications]Onset: 988370-64-5485UhfighxIqalqndtj of lipid metabolism (20 sources)Hyperlipidemia; Translations: [Hyperlipidemia, unspecified]Onset: 568412-20-9200FhaagybWganzoadys disorders (2 sources)Gastroesophageal reflux disease without esophagitis; Translations: [Gastro-esophageal reflux disease without esophagitis]49-32-5132NuubnyaEypwgquur hypertension (20 sources)Hypertensive disorder; Translations: [Essential (primary) hypertension]Onset: 671449-37-9555AbclxutElwyfrdp; including migraine (20 sources)Migraine without aura, not refractory ; Translations: [Migraine without aura, not intractable, without status migrainosus]Onset: 12-26-2022 Resolved: 876162-69-5814EytuohuPfpjuqqlwcsvt and screening for infectious disease (2 sources)Vaccination needed; Translations: [Encounter for immunization] 28-61-7371DyttiapbSgxintyfue disorders (20 sources)Menopausal flushing; Translations: [Menopausal and female climacteric states]Onset: 207341-06-4363YuqvlzsRwfc disorders (20 sources)Depressive disorder; Translations: [Depression]Onset: 12-26-2022 14-86-4824LgyetzvIbkcq gastrointestinal disorders (20 sources)Irritable bowel syndrome with diarrhea; Translations: [Irritable bowel syndrome with diarrhea]Onset: 464262-60-3899TaczahmQaclz inflammatory condition of skin (20 sources)Psoriasis; Translations: [Psoriasis, unspecified]Onset: 12-26-2022 98-79-3621MnaleyeUtudi nervous system disorders (1 source)Other chronic pain; Translations: [OTHER CHRONIC PAIN]Onset: 18-57-1294QczvqgnEayrr nervous system disorders (20 sources)Chronic pain; Translations: [Other chronic pain]Onset: 12-26-2022 45-86-0646ZgbphexJbzoe nervous system disorders (20 sources)Left-sided piriformis syndrome; Translations: [Lesion of sciatic nerve, left lower limb]Onset: 455801-39-0465NahzfnrOcims nervous system disorders (20 sources)Sciatic nerve lesion; Translations: [Lesion of sciatic nerve, unspecified lower limb]Onset: 025652-30-1422TyuraetHdoki nervous system disorders (2 sources)Tremor; Translations: [Tremor, unspecified]15-47-0545TkmnccdlWsnly nutritional; endocrine; and metabolic disorders (20 sources)Obesity caused by energy imbalance; Translations: [Morbid (severe) obesity due to excess calories]Onset: 284700-46-1784XqeywjqDumjb nutritional; endocrine; and metabolic disorders (1 source)Morbid obesity; Translations: [Morbid (severe) obesity due to excess calories]Onset: 700679-81-7360DhjunjbBntup screening for suspected conditions (not mental disorders or infectious disease) (2 sources)Patient encounter status; Translations: [Encounter for screening mammogram for malignant neoplasm of breast]71-10-8234MgbzemkdRtalq upper respiratory disease (20 sources)Allergic rhinitis; Translations: [Allergic rhinitis, unspecified] Onset: 111263-97-0013NunseatZnosd upper respiratory disease (2 sources)Allergic rhinitis due to pollen; Translations: [Allergic rhinitis due to pollen]26-38-0525YqvrcmaPjgef upper respiratory infections (2 sources)Pansinusitis; Translations: [Chronic pansinusitis]43-46-6674Jyjklfn Peripheral and visceral atherosclerosis (2 sources)Atherosclerosis of aorta; Translations: [Atherosclerosis of aorta] 93-90-3250MdprfuvPozclkxqh and history of mental health and substance abuse codes (2 sources)Ex-smoker; Translations: [Personal history of nicotine dependence] 75-86-8637GulhjzizBcfuzvlsvwi; intervertebral disc disorders; other back problems (20 sources)Spondylosis without myelopathy or radiculopathy, lumbar region; Translations: [Sacroiliitis, not elsewhere classified]Onset: 69-27-6588Xrxpsur Spondylosis; intervertebral disc disorders; other back problems (13 sources)Lumbago with sciatica, left side; Translations: [Intervertebral disc disorders with radiculopathy, lumbar region]Onset: 529544-67-8773Ujbyrdnp Unclassified (1 source)CONTACT W/AND (SUSP) EXPOS COVID-19; Translations: [CONTACT W/AND (SUSP) EXPOS COVID-19]Onset: 81-85-0336Yuemttpzgqdg (1 source)ACUTE COUGH; Translations: [ACUTE COUGH]Onset: 15-37-8644Xmudrosxxsyd (3 sources)LOW BACK PAIN, UNSPECIFIED; Translations: [LOW BACK PAIN, UNSPECIFIED]Onset: 77-35-8098Wefqrlwwgiui (5 sources)Patient on antidepressant monitoring planOnset: 319838-60-7491 Unclassified (5 sources)Baseline PHQ-9Onset: 519433-12-2650Qlhgx infection (2 sources)Herpes zoster without complication; Translations: [Zoster without complications]64-14-2699Zrbiieif Past or Other Problems Problem ClassificationProblemDateDocumented DateEpisodic/ChronicComa; stupor; and brain damage (20 sources)Daytime somnolence; Translations: [Somnolence]Onset: 12-26-2022 64-10-6797XtvrhujxNbuvmzyvni associated with dizziness or vertigo (20 sources)Dizziness; Translations: [Dizziness and giddiness]Onset: 04-09-2023 40-28-8228DwhquoipVsxkykhv mellitus without complication (20 sources)Prediabetes; Translations: [Prediabetes]Onset: 12-26-2022 Resolved: 806409-05-7240LzjdtzlvSfynt acquired deformities (20 sources)Leg length inequality; Translations: [Unequal limb length (acquired), unspecified site]Onset: 165950-07-3172BdkdwjvkOnfii acquired deformities (3 sources)Unequal limb length (acquired), unspecified site; Translations: [Unequal leg length (acquired)]Onset: 605141-75-5799KlybhenpQdeie aftercare (1 source)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; Translations: [OTH FDC CURRENT DRUG THERAPY]Onset: 28-81-7238GffyefzpHgpsz aftercare (20 sources)Long-term current use of inhaled steroid; Translations: [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]Onset: 670998-27-2795TksojohyPnkxw circulatory disease (20 sources)Elevated blood-pressure reading without diagnosis of hypertension; Translations: [Elevated blood-pressure reading, without diagnosis of hypertension]Onset: 12-26-2022 Resolved: 907325-81-4838EooeepfwSglxf circulatory disease (20 sources)Elevated blood pressure; Translations: [Elevated blood-pressure reading, without diagnosis of hypertension]Onset: 12-26-2022 Resolved: 440687-96-8525VcpwmjulBkkcg connective tissue disease (5 sources)Other muscle spasm; Translations: [OTHER MUSCLE SPASM]Onset: 99-90-3672WotmzjmyYdsqi diseases of kidney and ureters (12 sources)Cyst of kidney; Translations: [Cyst of kidney, acquired]Onset: 301074-93-8880PnoyiwdnCrwfw lower respiratory disease (1 source)Wheezing; Translations: [WHEEZING]Onset: 39-59-9652TvpquuvbAlmod lower respiratory disease (20 sources)Lung field abnormal; Translations: [Other nonspecific abnormal finding of lung field]Onset: 005909-04-1349HpspqxnpYvffj nutritional; endocrine; and metabolic disorders (20 sources)Obese class I; Translations: [Obesity (BMI 30.0-34.9)]Onset: 12-26-2022 Resolved: 358016-06-5086SrwdzheDdgct nutritional; endocrine; and metabolic disorders (20 sources)Body mass index 30+ - obesity; Translations: [Body mass index (BMI) 37.0-37.9, adult]Onset: 04-14-2024 Resolved: 667417-79-3137MvsldfgDzwvzhmp codes; unclassified (4 sources)Pain, unspecified; Translations: [PAIN UNSPECIFIED]Onset: 09-07-2022 EpisodicResidual codes; unclassified (1 source)Acquired absence of other specified parts of digestive tract; Translations: [ACQ ABSENCE OTH PART DIGESTV TRACT]Onset: 29-54-1452Zsqenirx Residual codes; unclassified (1 source)Acquired absence of both cervix and uterus; Translations: [ACQUIRED ABSENCE BOTH CERVIX AND UTERUS]Onset: 33-77-0317GyblblbzHfuayxku codes; unclassified (1 source)Acquired absence of ovaries, unilateral; Translations: [ACQUIRED ABSENCE OVARIES UNILATERAL]Onset: 81-32-1829McchqufcQrrexpxb codes; unclassified (20 sources)Flushing; Translations: [Flushing]Onset: 12-26-2022 Resolved: 926277-00-0470VksxemxhYrryttruf-wrkvynd disorders (20 sources)Nicotine dependence, cigarettes, uncomplicated; Translations: [Smoker]Onset: 05-17-2022 Resolved: 183833-22-7890BqypfyuLubrcfstioaj (1 source)LOW BACK PAIN, UNSPECIFIED; Translations: [LOW BACK PAIN, UNSPECIFIED] Onset: 05-16-2022 Results Test NameValueInterpretationReference RangeFacilityXR LUMBAR SPINE MIN 4Von 87[place]2783[place] [id number] [place] Report Signed Patient: DHARA DALLAS MR#: [id number] : 1970 Acct:[id number] Age/Sex: 54 / F ADM Date: 04/23/25 Loc: RAD 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 04/23/2025 9:48 AM Dictation Location: [place] [address] Electronically authenticated by: [id number] Y Date: 04/23/2025 09:48 Dictated By: Rafiq Rai M.D. Signed By: 04/23/2550 DD/ 7 TD/TT: Sql Engineer:TBHRadiology, Radiologist, - 04/23/2025 [place] [id number] XRay Report Signed Patient: DHARA DALLAS MR#: [id number] : 1970 Acct:[id number] Age/Sex: 54 / F ADM Date: 04/23/25 Loc: RAD Attending Dr: Tyra Graves NP Ordering Physician: Tyra Graves NP Date of Service: 04/23/25 Procedure(s): XR lumbar spine min 4V Accession Number(s): [id number] cc: SANDY YOUSSEF ; Tyra Graves NP [facility] [place] [address] Patient Name: DHARA DALLAS MRN: [id number] date: 1970 Sex: F Assigned Patient Location: Current Patient Location: Accession/Order Number: [id number] Exam Date: 04/23/2025 08:55 Report Date: 04/23/2025 [...] Jr., D.O. 04/23/2025 9:48 AM Dictation Location: [place] [address] Electronically authenticated by: [id number] Y Date: 04/23/2025 09:48 Dictated By: Rafiq Rai M.D. Signed By: 04/23/25949 DD/ 7 TD/TT: Sql Engineer: SAMREEN HealthcareRadiology Study observation (narrative)NOMS HealthcareXR LUMBAR SPINE MIN 4VOrdered By: Radiologist Radiology on 55-53-0440[facility] Work Phone: XR SACROILIAC JOINTon 34-71-1538[address] [address] XRay Report Signed Patient: DHARA DALLAS MR#: [id number] : 1970 Acct:[id number] Age/Sex: 54 / F ADM Date: 04/23/25 Loc: [facility] Attending Dr: Tyra Graves NP Ordering Physician: Tyra Graves NP Date of Service: 04/23/25 Procedure(s): XR sacroiliac joint ELIANE Accession Number(s): [id number] cc: SANDY YOUSSEF ; Tyra Graves NP [address] [id number] Patient Name: DHARA DALLAS MRN: [id number] date: 1970 Sex: F Assigned Patient Location: Current Patient Location: Accession/Order Number: [id number] Exam Date: 04/23/2025 08:55 Report Date: 04/23/2025 [...] Jr., D.O. 04/23/2025 9:47 AM Dictation Location: [place] [address] Electronically authenticated by: [id number] Y Date: 04/23/2025 09:47 Dictated By: Rafiq Rai M.D. Signed By: 04/23/2549 DD/ TD/TT: Sql Engineer:TBHRadiology, Radiologist, - 04/23/[address] [address] XRay Report Signed Patient: DHARA DALLAS MR#: [id number] : 1970 Acct:[id number] Age/Sex: 54 / F ADM Date: 04/23/25 Loc: [facility] Attending Dr: Tyra Graves NP Ordering Physician: Tyra Graves NP Date of Service: 04/23/25 Procedure(s): XR sacroiliac joint ELIANE Accession Number(s): [id number] cc: SANDY YOUSSEF Anna NP The [place] [id number] Patient Name: DHARA DALLAS MRN: [id number] date: 1970 Sex: F Assigned Patient Location: Current Patient Location: Accession/Order Number: [id number] Exam Date: 04/23/2025 08:55 Report Date: 04/23/2025 [...] Jr., D.O. 04/23/2025 9:47 AM Dictation Location: [place] [address] Electronically authenticated by: [id number] Y Date: 04/23/2025 09:47 Dictated By: Rafiq Rai M.D. Signed By: 04/23/2549 DD/ 6 TD/TT: Sql Engineer: NOMCorine HealthcareRadiology Study observation (narrative)NOMS HealthcareXR SACROILIAC JOINTOrdered By: Radiologist Radiology on 67-45-7241KEXHPemiscot Memorial Health Systems Work Phone: Laboratory - Hematology and Cell countson 04-07-2025 HbA1c (Bld) [Mass fraction]5.5 %[facility] Health SystemsNo Panel Informationon 04-07-2025 Interpretation and review of laboratory resultsNoAscension Eagle River Memorial HospitalALBUMIN, RANDOM URINE W/CREATININEon 84-47-0776AYZJBQM, URINE0.4 mg/dL NormalSee Note:Quest DiagnosticsComment on above:Result Comment: Reference Range: Reference Range Not establishedPerformed By: #### 6517 #### [facility] [address], [address] [place] [address] Clerk: Christiano Escobar MDALBUMIN/CREATININE RATIO, RANDOM URINE9 mg/g [...] category.Performed By: #### 6517 #### [facility] [address], [address] [place] [address] Clerk: Christiano Escobar MDCreatinine (U) [Mass/Vol]47 mg/dCBizbux18-975 Quest DiagnosticsComment on above:Performed By: #### 6517 #### [facility] [address], [address] [place] [address] Clerk: Christiano Escobar MDMicroalbumin/Creatinine ratio panel (U)on 92-99-1342Rcbuxfm DL <= 20 mg/L (U) [Mass/Vol]0.4 mg/dLSee Note:[facility] [employer] Comment on above:Reference Range: Reference Range Not established Albumin/Creatinine (U) [Mass ratio]9NINFPemiscot Memorial Health SystemsComment on above: The ADA defines abnormalities in [...] category. Creatinine (U) [Mass/Vol]47 mg/dL20 - 275 mg/dLPemiscot Memorial Health SystemsPereinstein medical center montgomery Organization Information Site ID: QPT Name: [employer]docs [facility] Address: [address] [place] [address], [address] [place] [phone] Director: Christiano Escobar MDFort Memorial Hospital CHEST WO CONon 38-48-4715[place]pr[place], [place] [address] CT Scan Report Signed Patient: DHARA DALLAS MR#: [id number] : 1970 Acct:[id number] Age/Sex: 53 / F ADM Date: 04/18/24 Loc: CT Attending Dr: Melisa Blanc D.O. Ordering Physician: Melisa Blanc D.O. Date of Service: 04/18/24 Procedure(s): CT chest wo con Accession Number(s): [id number] cc: SANDY YOUSSEF [place] [id number] Patient Name: DHARA DALLAS MRN: [id number] date: 1970 Sex: F Assigned Patient Location: CT Current Patient Location: CT Accession/Order Number: [id number] Exam Date: 04/18/2024 07:40 Report Date: 04/21/2024 [...] Signed By: 04/21/24 1328 DD/ 1325 TD/TT: Sql Engineer:AMINAHRadiology, Radiologist, - 04/21/2024 [place] [address] CT Scan Report Signed Patient: DHARA DALLAS MR#: [id number] : 1970 Acct:[id number] Age/Sex: 53 / F ADM Date: 04/18/24 Loc: CT Attending Dr: Melisa Blanc D.O. Ordering Physician: Melisa Blanc D.O. Date of Service: 04/18/24 Procedure(s): CT chest wo con Accession Number(s): [id number] cc: SANDY YOUSSEF [place] [id number] Patient Name: DHARA DALLAS MRN: [id number] date: 1970 Sex: F Assigned Patient Location: CT Current Patient Location: CT Accession/Order Number: [id number] Exam Date: 04/18/2024 07:40 Report Date: 04/21/2024 [...] Signed By: 04/21/24 1328 DD/ 1325 TD/TT: Sql Engineer: SAMREEN HealthcareRadiology Study observation (narrative)NOM HealthcareCT CHEST WO CONOrdered By: Radiologist Radiology on 95-17-3327[facility] Work Phone: mm TOMOSYNTHESIS SCREENING BIon 92-11-9466Qgz[address] [address] Mammography Report Signed Patient: DHARA DALLAS MR#: [id number] : 1970 Acct:[id number] Age/Sex: 53 / F ADM Date: 04/18/24 Loc: MAMMO Attending Dr: SANDY YOUSSEF Ordering Physician: SANDY YOUSSEF Results: Date of Service: 04/18/24 Follow Up: Procedure(s): MM tomosynthesis screening BI Accession Number(s): [id number] cc: SANDY YOUSSEF Patient Name: DHARA DALLAS MR#: [id number] : 1970 Exam Date: 04/18/2024 Ordering Doctor: [...] lung cancer at age 78. LOCATION: [facility] BREAST COMPOSITION: There are [...] Signed By: 04/18/24 1211 DD/ 1210 TD/TT: Sql Engineer:TBHRadiology, RadiologistMD - 04/18/2024 The [place] [id number] Mammography Report Signed Patient: DHARA DALLAS MR#: [id number] : 1970 Acct:[id number] Age/Sex: 53 / F ADM Date: 04/18/24 Loc: MAMMO Attending Dr: SANDY YOUSSEF Ordering Physician: SANDY YOUSSEF Results: Date of Service: 04/18/24 Follow Up: Procedure(s): MM tomosynthesis screening BI Accession Number(s): [id number] cc: SANDY YOUSSEF Patient Name: DHARA DALLAS MR#: [id number] : 1970 Exam Date: 04/18/2024 Ordering Doctor: [...] lung cancer at age 78. LOCATION: [facility] BREAST COMPOSITION: There are [...] Signed By: 04/18/24 1211 DD/ 1210 TD/TT: Sql Engineer: SAMREEN HealthcareRadiology Study observation (narrative)NOMS HealthcareMM TOMOSYNTHESIS SCREENING BIOrdered By: Radiologist Radiology on 61-56-0556AFFSPemiscot Memorial Health Systems Work Phone: Laboratory - Hematology and Cell countson 04-14-2024 HbA1c (Bld) [Mass fraction]5.7 %[facility] Panel Informationon 04-14-2024 Interpretation and review of laboratory resultsNormalUNC Health NashCREATININEon 20-13-3331Hsayukzwnf [Mass/Vol]1.03 mg/dLCritically high 0.55-1.02Madison HealthComment on above:Performed By: #### CREA #### [facility] [address] [place] [address] [address] Radha WoodGFR-AF DJIBOUTIAN>60Normal>=60The Regional Medical CenterComment on above:Performed By: #### CREA #### [facility] [address] [place] [address] [address] Radha WoodGFR-NON AF XTHSGJIC63 mL/min/1.60v0Cuomakikty low>=60The [facility] Medical CenterComment on above:Performed By: #### CREA #### [facility] [address] [place] [address] [address] Radha GalindoXR CHEST 2 Von 04-62-6555TA CHEST 2 VEXAM: XR CHEST 2 V HISTORY: Pneumonia COMPARISON: None. TECHNIQUE: PA and lateral views of the chest. FINDINGS: The cardiomediastinal silhouette is normal. Airspace disease of the lingula. There is no pneumothorax. No pleural effusion is noted. The osseous structures are intact. IMPRESSION: Airspace disease of the lingula. Electronically authenticated by: AURORA HERNANDEZ Date: 2022-12-27 11:35[facility] HospitalMRI LSPINE WO CONon 21-82-9769ELG [place] WO CONEXAMINATION: MRI LSPINE WO CON HISTORY: [...] Electronically authenticated by: BRANDON CRUZ Date: 2022-12-15 12:14NoCleveland Clinic Marymount HospitalRESPIRATORY PANEL PLUSon 95-38-9797XsgkznukjxHae detectedNormal NOT DETECTEDThe Regional Medical CenterComment on above:Performed By: #### RSPLUS ####[facility] [address] [place] [address]DrInna Joyce ParapertusisNot detectedNormalNOT DETECTEDThe [facility] Comment on above:Performed By: #### RSPLUS ####[facility] [address] [place] [id number] Kiser. PertussisNot detected NormalNOT DETECTEDThe [facility] Medical CenterComment on above:Performed By: #### RSPLUS ####[facility] [address] [place] [address]Dr. Radha MateoChlamydia PneumoniaeNot detectedNormalNOT DETECTEDThe [facility] Medical CenterComment on above:Performed By: #### RSPLUS ####[facility] [address] [place], [place] [address]Dr. Judyricky Galindo Coronavirus 229ENot detectedNormalNOT DETECTEDThe [facility] Medical CenterComment on above:Performed By: #### RSPLUS ####[facility] [address]oyfvdyghk[address] [place], [place] [address]Dr. Radha ChangCoronavirus JVT4Dxt detectedNormalNOT DETECTEDThe [facility] Medical CenterComment on above:Performed By: #### RSPLUS ####[facility] [address]lregpumnq[address] [place], [place] [address]Dr. Radha ChangCoronavirus PY51Noo detectedNormalNOT DETECTEDThe [facility] Comment on above:Performed By: #### RSPLUS ####[facility] [address]imrgenufd[address] [place], [place] [address]Dr. Radha ChangCoronavirus QP22Nku detected NormalNOT DETECTEDThe [facility] Medical CenterComformerly [facility] on above:Performed By: #### RSPLUS ####[facility] Pejzvqmsxo[address] [place], [place] [address]Dr. Radha GalindoInfluenza A H1Not detectedNormalNOT DETECTEDThe [facility] Medical CenterComment on above:Performed By: #### RSPLUS ####[facility] Lkjfvyxzfr[address] [place], [place] [address]Dr. Radha GalindoInfluenza A H1 2009Not detectedNormalNOT DETECTEDThe [facility] Medical CenterComment on above: Performed By: #### RSPLUS ####[facility] [address]is[address] [place], [place] [address]Dr. Judylan MateoInfluenza A H3Not detectedNormalNOT DETECTEDThe [facility] Medical CenterComment on above:Performed By: #### RSPLUS ####[facility] Plsneragob[address] [place], [place] [address]Dr. Radha ChangInfluenza BNot detectedNormalNOT DETECTEDThe [facility] Medical CenterComment on above:Performed By: #### RSPLUS ####[facility] [address]rkwpzm[address] [place], [place] [address]Dr. Radha GalindoMetapneumovirusNot detectedNormal NOT DETECTEDThe [facility] Medical CenterComment on above:Performed By: #### RSPLUS ####[facility] [address] [place] [address]Dr. Radha GalindoMycoplas. PneumoniaeNot detectedNormalNOT DETECTEDThe [facility] Medical CenterComment on above:Performed By: #### RSPLUS ####[facility] [address]ymu[address]qf[address] [place], [place] [address]Dr. Radha GalindoParainfluenza 1Not detectedNormalNOT DETECTEDThe [facility] Medical CenterComment on above:Performed By: #### RSPLUS ####[facility] Cksuxyqjsi[address] [place], [place] [address]Dr. Radha GalindoParainfluenza 2Not detectedNormalNOT DETECTEDThe [facility] Medical CenterComment on above:Performed By: #### RSPLUS ####[facility] Mvanx[address]mfe[address] [place], [place] [address]Dr. Radha Galindo Parainfluenza 3Not detectedNormalNOT DETECTEDThe [facility] Medical CenterComment on above:Performed By: #### RSPLUS ####[facility] Wopbxquaue[address] [place], [place] [address]Dr. Radha GalindoParainfluenza 4Not detectedNormalNOT DETECTEDThe [facility] Medical CenterComment on above:Performed By: #### RSPLUS ####[facility] Yjwxnlnqlt[address] [place], [place] [address]Dr. Radha GalindoRhino/EnterovirusNot detectedNormalNOT DETECTEDThe [facility] Comment on above:Performed By: #### RSPLUS ####[facility] Wirishfwba[address] [place], [place] [address]Dr. Radha Arzola Header 1RESPIRATORY PANEL: VIRUSESNormalThe Regional Medical CenterComment on above:Performed By: #### RSPLUS ####[facility] Btctugoyli[address] [place], [place] [address]Dr. Yilan ChangRP2 Header 2RESPIRATORY PANEL: BACTERIAAshtabula General HospitalComformerly [facility] on above:Performed By: #### RSPLUS ####[facility] [address]kgbqlivq[address] [place] [address]Dr. Radha GalidnoRSVNot detectedNormalNOT DETECTEDThe [facility] on above:Performed By: #### RSPLUS ####[facility] Jsprxrjtcx[address] [place] [address]Dr. Radha Buitrago-CoV-2 (COVID-19) RNA SUSAN+probe Ql (Unsp spec)Not detectedNormalNOT DETECTEDThe [facility] Medical CenterComformerly [facility] on above:Performed By: #### RSPLUS ####[facility] [address]mf[address] [place] [address]Dr. Radha GalindoXR CHEST 2 Von 62-59-5802HY CHEST 2 VEXAMINATION: XR CHEST 2 V [...] Electronically authenticated by: BRANDON CRUZ Date: 2022-09-07 12:18[facility] AUTO DIFFon 38-51-1492PNAW #0.1 103/ulNormal0.0-0.1The [facility] on above:Performed By: #### CBC ####[facility] Acphftdutj[address] [place], [place] [address]Dr.Radha GalindoBasophils/100 WBC (Bld)0.6 %Normal0.2-2.0The [facility] on above:Performed By: #### CBC ####[facility] Ftzzwiokyj[address] [place], [place] [address]Dr.Radha ChangEO #0.2 103/ulNormal0.0-0.7The Racine HospitalComment on above:Performed By: #### CBC ####[facility] Cjgwiobikv[address] [place], [place] [address]Dr.Radha ChangEosinophils/100 WBC (Bld)1.3 %Normal 0.9-7.0The [facility] Medical CenterComment on above:Performed By: #### CBC ####[facility] Aysrswgick[address] [place], [place] [address]Dr.Radha Galindo Erythrocyte distribution width (RBC) [Ratio]14.6 %Giphxp50.0-15.0The [facility] HospitalComment on above:Performed By: #### CBC ####[facility] Pmoldjfqut[address] [place], [place] [address]Dr.Radha ChangHematocrit (Bld) [Volume fraction]45.1 %Mgmcxc57.0-48.0The [facility] Medical CenterComment on above:Performed By: #### CBC ####[facility] Eljpqcacmn[address] [place], [place] [address]Dr.Radha ChangHemoglobin (Bld) [Mass/Vol]14.9 g/dL Ohykqj42.0-16.0The [facility] HospitalComment on above:Performed By: #### CBC ####[facility] Glcurmdoda[address] [place], [place] [address]Dr. Radha ChangIG #0.06 10e3/ulCritically high0.00-0.03The [facility] Medical CenterComment on above:Performed By: #### CBC ####[facility] Vbyedlxiar[address] [place], [place] [address]Dr.Radha ChangIG %0.4 %Normal0.0-0.5The [facility] HospitalComment on above:Performed By: #### CBC ####[facility] Gyzedbdzws[address] [place], [place] [address]Dr.Radha ChangLYMPH #3.7 103/ulNormal1.2-3.8The [facility] Medical CenterComment on above:Performed By: #### CBC ####[facility] Gjenjnfpoh[address] [place], [place] [address]Dr. Yilan ChangLymphocytes/100 WBC (Bld)27.7 %Lrxwei07.5-60.0The [facility] Comment on above:Performed By: #### CBC ####[facility] [address]thsp[address] [place] [address]Dr.Radha GalindoMANUAL DIFF REQNONormalThe Regional Medical CenterComment on above:Performed By: #### CBC ####[facility] [address]oxohouwmw[address] [place], [place] [address]Dr.Radha GalindoH (RBC) [Entitic mass]31.6 rlXzplcb09.7-34.0The [facility] Medical CenterComment on above: Performed By: #### CBC ####[facility] Pnlsdeamze[address] [place], [place] [address]Dr.Radha GalindoHC (RBC) [Mass/Vol]33.0 g/dLNormal 29.9-35.2The [facility] Medical CenterComment on above:Performed By: #### CBC ####[facility] Csxxuyezjs[address] [place], [place] [address]Dr. Radha GalindoV (RBC) [Entitic vol]95.6 cBTrcalc23.0-99.0The [facility] Comment on above:Performed By: #### CBC ####[facility] J[address]dtfrimz[address] [place], [place] [address]Dr.Radha GalindoMONO #0.7 103/ulNormal0.3-0.8 The [facility] Medical CenterComment on above:Performed By: #### CBC ####[facility] R[address]qsqsbmzw[address] [place], [place] [address]Dr.Radha Galindo Monocytes/100 WBC (Bld)5.3 %Normal1.7-12.0The [facility] Medical CenterComment on above: Performed By: #### CBC ####[facility] Kraubsxiwg[address] [place], [place] [address]DrInnaRadha GalindoNEUT #8.8 103/ulCritically high1.4-6.5 The [facility] Medical CenterComment on above:Performed By: #### CBC ####[facility] [address] [place] [address]Dr.Radha Galindo Neutrophils/100 WBC (Bld)64.7 %Nkzyps95.0-75.0The [facility] CenterComment on above:Performed By: #### CBC ####[facility] [address] [place] [address]Dr.Radha GalindoPlatelet mean volume (Bld) [Entitic vol] 9.1 fLCritically low9.5-13.5The [facility] CenterComment on above:Performed By: #### CBC ####[facility] [address] [place] [address]Dr.Radha GalindoPLT318 103/fhFddkpt412-607Rcq [facility] CenterComment on above:Performed By: #### CBC ####[facility] [address]qkoxcw[address] [place], [place] [address]Dr.Radha GalindoRBC4.72 106/ulNormal4.20-5.40The [facility] Medical CenterComment on above:Performed By: #### CBC ####[facility] [address]rjzmvyo[address] [place], [place] [address]Dr.Radha GalindoWBC13.5 103/ul Critically high4.0-11.0The [facility] Medical CenterComment on above:Performed By: #### CBC ####[facility] Gurpreuvyb[address] [place], [place] [address]Dr. Radha GalindoCRPon 99-84-7818JCH0.3 mg/dLNormal<=1.0The [facility] Medical CenterComment on above:Performed By: #### BMP, CRP #### [facility] [address] [place] [address] Dr. Radha GalindoPROF CHEM 8 (BAS METB)on 80-08-7262Wwjue gap [Moles/Vol]13.7 mmol/LNormalThe [facility] Medical CenterComment on above:Performed By: #### BMP, CRP #### [facility] [address] [place] [address] Dr. Radha GalindoCalcium [Mass/Vol]9.5 mg/dLNormal8.5-10.1The [facility] Comment on above:Performed By: #### BMP, CRP #### [facility] [address] [address] [address] Radha GalindoChloride [Moles/Vol]104 mmol/BWfqtvy05-288[facility] Comment on above:Performed By: #### BMP, CRP #### [facility] [address] [address] [address] Radha GalindoCO2 [Moles/Vol]27.0 mmol/LKllmna36.0-32.0The [facility] Comment on above:Performed By: #### BMP, CRP #### [facility] [address] [address] [address] Radha GalindoCreatinine [Mass/Vol]1.01 mg/dLNormal0.55-1.02The [facility] Medical CenterComment on above:Performed By: #### BMP, CRP #### [facility] [address] [address] [address] Garcai ChangEGFR-AF DJIBOUTIAN>60Normal>=60The [facility] Medical CenterComment on above:Performed By: #### BMP, CRP #### [facility] [address] [address] [address] Radha WoodGFR-NON AF WMMRNPPA95 mL/min/1.27u7Ahfyrxxdeh low>=60The [facility] Medical CenterComment on above:Performed By: #### BMP, CRP #### [facility] [address] [address] [address] Radha GalindoGlucose [Mass/Vol]137 mg/dLCritically bemb34-625Atn [facility] Medical CenterComment on above:Performed By: #### BMP, CRP #### [facility] [address] [address] [address] Radha GalindoPotassium [Moles/Vol]3.7 mmol/LNormal3.5-5.1The [facility] Comment on above:Performed By: #### BMP, CRP #### [facility] [address] [address] [address] Radha GalindoSodium [Moles/Vol]141 mmol/KYdbtwm489-394Ydf [facility] Comment on above:Performed By: #### BMP, CRP #### [facility] [address] [address] [address] Radha Lim nitrogen [Mass/Vol]11.0 mg/dLNormal7.0-18.0The [facility] CenterComment on above:Performed By: #### BMP, CRP #### [facility] [address] [address] [address] Radah Lim nitrogen/Creatinine [Mass ratio]10.9 mg/mgNormalThe [facility] Medical CenterComment on above:Performed By: #### BMP, CRP #### [facility] [address] [address] [address] Radha Soliz RATE WESTERGRENon 03-85-4618TTA RATE18 mm/hrNormal<=30The [facility] Medical CenterComment on above:Performed By: #### SEDR ####[facility] [address] [place] [address]Dr. Radha Dickersonvid-19 PCR (CVDTBH)on 45-37-0428EJVY-CoV-2 (COVID-19) RNA SUSAN+probe Ql (Unsp spec)Not detectedNormalNOT DETECTEDThe [facility] Medical CenterComformerly [facility] on above:Result Comment: This test is not yet approved or cleared by the [place] FDA. When there are no FDA-approved or cleared tests available, and other criteria are met, FDA can make tests available under an emergency access mechanism called an Emergency Use Authorization (EUA). The EUA for this test is supported by the [employer] of Health and Human Service's (HHS's) declaration [...] consistent with SARS-CoV-2.Performed By: #### CVDTBH #### [facility] [address] [place] [address] Radha Chadwickd-19 PCR ([facility])on 33-72-9978GACK-CoV-2 (COVID-19) RNA SUSAN+probe Ql (Unsp spec)Not detectedNormalNOT DETECTEDThe [facility] Comment on above:Result Comment: This test is not yet approved or cleared by the [place] FDA. When there are no FDA-approved or cleared tests available, and other criteria are met, FDA can make tests available under an emergency access mechanism called an Emergency Use Authorization (EUA). The EUA for this test is supported by the [employer] of Health and Human Service's (HHS's) declaration [...] consistent with SARS-CoV-2.Performed By: #### CVDTBH #### [facility] [address] [place] [address] Radha Hammeralbumin (with Creat)on 97-01-1417lYEE<1.2LowNorthern Louisiana Medical SpecialistComment on above:Result Comment: Unable to calculate mALB/Crea ratio, mALB is <1.2 mg/dL mALB reference range not established.Performed By: #### mALBC #### [facility] [address], [place] [id number] mg/gOXucfal45-252Fpbfawth [place] [employer] Comment on above:Performed By: #### mALBC #### [facility] [address], [place] [id number] Blood Count with Auto Diffon 78-70-6774Eeeuuoccl (Bld) [#/Vol]0.07 10*3/uLNormal0.00-0.20[facility] SpecialistComment on above:Performed By: #### CMP, CBCAD, VITD, LIPD #### [facility] [address] [place], [place] [address]Kdlklldhv/100 WBC (Bld)0.6 %[facility] SpecialistComment on above:Performed By: #### CMP, CBCAD, VITD, LIPD #### [facility] [address] [place], [place] [id number] (Bld) [#/Vol]0.17 10*3/uLNormal0.02-0.50[facility] SpecialistComment on above:Performed By: #### CMP, CBCAD, VITD, LIPD #### [facility] [address] [place], [place] [id number]/100 WBC (Bld)1.4 %[facility] SpecialistComment on above:Performed By: #### CMP, CBCAD, VITD, LIPD #### [facility] [address] [place], [place] [address]Qxmrjfsazvv distribution width (RBC) [Ratio]14.1 %Normal 11.0-15.0[facility] SpecialistComment on above:Performed By: #### CMP, CBCAD, VITD, LIPD #### [facility] [address] [place], [place] [address]Vqmwmioiga (Bld) [Volume fraction]46.1 %Ojgtcd34.0-47.0 [facility] SpecialistComment on above:Performed By: #### CMP, CBCAD, VITD, LIPD #### [facility] [address] [place], [place] [address]Oyjxpvwryc (Bld) [Mass/Vol]15.6 g/dNHshv26.6-15.5[facility] SpecialistComment on above:Performed By: #### CMP, CBCAD, VITD, LIPD #### [facility] [address] [place], [place] [id number] (Bld) [#/Vol]3.0 10*3/uLNormal0.9-3.9NoSalem City Hospital SpecialistComment on above:Performed By: #### CMP, CBCAD, VITD, LIPD #### [facility] [address] [place], [place] [id number]/100 WBC (Bld)25.9 %NormalNoSalem City Hospital SpecialistComment on above:Performed By: #### CMP, CBCAD, VITD, LIPD #### [facility] [address] [place], [place] [id number] (RBC) [Entitic mass]31.0 zxFxisdv01.0-33.0NoSalem City Hospital SpecialistComment on above:Performed By: #### CMP, CBCAD, VITD, LIPD #### [facility] [address] [place], [place] [id number] (RBC) [Mass/Vol]33.8 g/ePUugxbi54.0-36.0NoSalem City Hospital SpecialistComment on above:Performed By: #### CMP, CBCAD, VITD, LIPD #### [facility] [address] [place], [place] [id number] (RBC) [Entitic vol]92 wNEvnfpv12-126Detbegiy [facility] SpecialistComment on above:Performed By: #### CMP, CBCAD, VITD, LIPD #### [facility] [address] [place], [place] [id number] (Bld) [#/Vol]0.8 10*3/uLNormal0.2-0.9NoSalem City Hospital SpecialistComment on above:Performed By: #### CMP, CBCAD, VITD, LIPD #### [facility] [address], [place] [id number]/100 WBC (Bld)6.8 %NormalToledo Hospital SpecialistComment on above:Performed By: #### CMP, CBCAD, VITD, LIPD #### [facility] [address], [place] [id number] (Bld) [#/Vol]7.6 10*3/uLNormal1.5-7.8NortCleveland Clinic [facility] SpecialistComment on above:Performed By: #### CMP, CBCAD, VITD, LIPD #### [facility] [address], [place] [id number]/100 WBC (Bld)64.4 %NormalNortCleveland Clinic Marymount Hospital SpecialistComment on above:Performed By: #### CMP, CBCAD, VITD, LIPD #### [facility] [address] [place], [place] [id number] mean volume (Bld) [Entitic vol]9.50 fLNormal 7.50-12.50NortCleveland Clinic Marymount Hospital SpecialistComment on above:Performed By: #### CMP, CBCAD, VITD, LIPD #### [facility] [address] [place], [place] [id number] (Bld) [#/Vol]304 10*3/lHQchnxz207-399Rpdhmtrw [facility] SpecialistComment on above:Performed By: #### CMP, CBCAD, VITD, LIPD #### [facility] [address] [place], [place] [id number] (Bld) [#/Vol]5.03 10*6/uLNormal3.90-5.20NortCleveland Clinic [facility] SpecialistComment on above:Performed By: #### CMP, CBCAD, VITD, LIPD #### [facility] [address] [place], [place] [id number]-NA86.6 pYPigemi10.0-50.0NoSalem City Hospital Specialist Comment on above:Performed By: #### CMP, CBCAD, VITD, LIPD #### [facility] [address] [place], [place] [id number] (Bld) [#/Vol]11.8 10*3/uLHigh3.8-11.0NoSalem City Hospital SpecialistComment on above:Performed By: #### CMP, CBCAD, VITD, LIPD #### [facility] [address] [place], [place] [id number] Metabolic Panelon 19-11-3908Ziwjpkx [Mass/Vol] 4.9 g/dLNormal3.6-5.1[facility] SpecialistComment on above:Performed By: #### CMP, CBCAD, VITD, LIPD #### [facility] [address] [place], [place] [id number]/Globulin [Mass ratio]2.3 {ratio}Normal1.0-2.5NoSalem City Hospital SpecialistComment on above:Performed By: #### CMP, CBCAD, VITD, LIPD #### [facility] [address] [place], [place] [id number] [Catalytic activity/Vol]82 U/GBdcdpd46-093Ofkujqlz [facility] SpecialistComment on above:Performed By: #### CMP, CBCAD, VITD, LIPD #### [facility] [address] [place], [place] [id number] [Catalytic activity/Vol]44 U/LHigh6-33NoSalem City Hospital SpecialistComment on above:Result Comment: 06/29/2021 Female reference range changed.Performed By: #### CMP, CBCAD, VITD, LIPD #### [facility] [address] [place], [place] [id number] gap [Moles/Vol]17 mmol/ETavglq35-90Kawfmsrk [facility] SpecialistComment on above:Result Comment: Effective 08/04/2019 reference range changed.Performed By: #### CMP, CBCAD, VITD, LIPD #### [facility] [address] [place], [place] [id number] [Catalytic activity/Vol]27 U/LNormal9-34NoSalem City Hospital SpecialistComment on above:Performed By: #### CMP, CBCAD, VITD, LIPD #### [facility] [address] [place], [place] [id number] [Mass/Vol]0.97 mg/dLNormal0.30-1.20[facility]n [place] [facility] SpecialistComment on above:Performed By: #### CMP, CBCAD, VITD, LIPD #### [facility] [address] [place], [place] [id number]/CREA14 RatioNormal6-22[facility]ortT[facility] Make Up Operator Comment on above:Performed By: #### CMP, CBCAD, VITD, LIPD #### [facility] [address] [place], [place] [id number] [Mass/Vol]10.3 mg/dLHigh8.6-10.2[facility] [place] [facility] SpecialistComment on above:Performed By: #### CMP, CBCAD, VITD, LIPD #### [facility] [address] [place], [place] [id number] [Moles/Vol]101 mmol/CGvcvxm16-821Wufodicc [facility] SpecialistComment on above:Performed By: #### CMP, CBCAD, VITD, LIPD #### [facility] [address] [place], [place] [id number] [Moles/Vol]25 mmol/UAuscuf71-27Rkzrnhev [place] [facility] SpecialistComment on above:Performed By: #### CMP, CBCAD, VITD, LIPD #### [facility] [address] [place], [place] [id number] [Mass/Vol]1.0 mg/dLNormal0.6-1.4[facility]n [facility] SpecialistComment on above:Performed By: #### CMP, CBCAD, VITD, LIPD #### [facility] [address] [place], [place] [id number] mL/min/1.38k3Sxffqo>60[facility]n [place] [facility] SpecialistComment on above:Performed By: #### CMP, CBCAD, VITD, LIPD #### [facility] [address] [place], [place] [id number] mL/min/1.05z5Odqbbt>60[facility] [place] [facility] SpecialistComment on above:Performed By: #### CMP, CBCAD, VITD, LIPD #### [facility] [address] [place], [place] [id number] (S) [Mass/Vol]2.1 g/dLNormal1.9-3.7NortC[facility] Clinic [facility] SpecialistComment on above:Performed By: #### CMP, CBCAD, VITD, LIPD #### [facility] [address] [place], [place] [id number] [Mass/Vol]120 mg/lAKdos26-83Akczqzze [place] [facility] SpecialistComment on above:Result Comment: For FASTING Glucose --- ADA reference ranges: Normal 65-99 mg/dl Prediabetes 100-125 Diabetes >/= 126Performed By: #### CMP, CBCAD, VITD, LIPD #### [facility] [address] [place], [place] [id number] [Moles/Vol]4.4 mmol/LNormal3.5-5.5NoSalem City Hospital SpecialistComment on above:Performed By: #### CMP, CBCAD, VITD, LIPD #### [facility] [address] [place], [place] [id number] [Mass/Vol]7.0 g/dLNormal6.1-8.1NorthMi[facility] SpecialistComment on above:Performed By: #### CMP, CBCAD, VITD, LIPD #### [facility] [address] [place], [place] [id number] [Moles/Vol]139 mmol/NOdcajs434-575Dobdrsdv [place] [facility] SpecialistComment on above:Performed By: #### CMP, CBCAD, VITD, LIPD #### [facility] [address] [place], [place] [id number] nitrogen [Mass/Vol]13 mg/dLNormal7-25NoSalem City Hospital SpecialistComment on above:Performed By: #### CMP, CBCAD, VITD, LIPD #### [facility] [address] [place], [place] [id number] A1Con 99-43-1921QOM062.24NormalNortCleveland Clinic Marymount Hospital SpecialistComment on above:Performed By: #### A1C #### [facility] [address] [place], [place] [id number] (Bld) [Mass fraction]6.2 %High4.0-6.0[facility]n [facility] SpecialistComment on above:Performed By: #### A1C #### [facility] [address] [place], [place] [id number] Panelon 34-46-3917Hxqnurscieb [Mass/Vol]243 mg/dLHigh 125-200NortC[facility] Clinic [facility] SpecialistComment on above:Result Comment: Low risk < 200mg/dL Borderline risk 201-239 mg/dl High risk > or equal to 240Performed By: #### CMP, CBCAD, VITD, LIPD #### [facility] [address] [place], [place] [id number] in HDL [Mass/Vol]58 mg/dLNormal>40[facility]n [facility] SpecialistComment on above:Result Comment: High Cardiovascular Risk HDL <40 mg/dL Low Cardiovascular Risk HDL > or equal to 60 mg/dlPerformed By: #### CMP, CBCAD, VITD, LIPD #### [facility] [address] [place], [place] [id number] in LDL [Mass/Vol]154 mg/dLNormalNortCleveland Clinic Marymount Hospital SpecialistComment on above:Result Comment: LDL ATP III CLASSIFICATION LDL less than 100 mg/dl Optimal LDL 100-129 mg/dl Near or above optimal LDL 130-159 Borderline high LDL 160-189 High LDL greater than 189 mg/dl Very HighPerformed By: #### CMP, CBCAD, VITD, LIPD #### [facility] [address], [place] [id number] in VLDL [Mass/Vol]31 mg/dLNormalNoSalem City Hospital SpecialistComment on above:Performed By: #### CMP, CBCAD, VITD, LIPD #### [facility] [address] [place], [place] [id number].total/Cholesterol in HDL [Mass ratio]4 {ratio} NormalNortencompass health valley of the sun rehabilitation hospitaln [facility] SpecialistComment on above:Performed By: #### CMP, CBCAD, VITD, LIPD #### [facility] [address] [place], [place] [id number] [Mass/Vol]154 mg/mOAsfk74-622Bmeqqcbb [facility] SpecialistComment on above:Result Comment: TRIG ATPIII CLASSIFICATIONS TRIG less than 150 mg/dl Normal TRIG 150-199 mg/dl Borderline High TRIG 200-500 mg/dl High TRIG greather than 500 mg/dl Very HighPerformed By: #### CMP, CBCAD, VITD, LIPD #### [facility] [address] [place], [place] [id number] D 25-OHon 68-03-0208NPJ D 25 OH73 ng/mlNormal>29 [facility] SpecialistComment on above:Result Comment: Vitamin D Status Deficiency <20 ng/mL Insufficiency 20-29 ng/mL Optimal 30-100 ng/mL Possible Toxicity >=150 ng/mLPerformed By: #### CMP, CBCAD, VITD, LIPD #### [facility] [address] [place], [place] [id number] 09-32-2815SGBWAdgwqubok (ORQ) DHARA DALLAS ([id number]) 1970 F Date Time Provider Department 03/08/21 NAINA OLIVA ORQ During your visit today, we recorded the following information about you: Francisco J Ahuja [facility] [place] 03/08/2021 4:45 PM Signed Patient called requesting a refill for Diclofenac Sod ER 100 mg tab. To send to [facility] at [phone] fax [phone] Francisco J Ahuja [facility] 03/17/2021 1:01 PM Signed Spoke to patient, she stated that got theOral Voltaren Oral Voltaren from her family doctor. Also she states that she is back at work and will make an appointment soon with the imcu specialist. 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: Negative for abnormal vaginal bleeding, abnormal vaginal [...] has degenerative di (more content not included)...Normal [facility] OUTSIDE DICOM IMPORT -NBNRon 37-11-6434QZ OUTSIDE DICOM IMPORT -NBNRImages were obtained outside of [facility] [id number]_[id number] City HospitalXR OUTSIDE CD DICOM IMPORT -NBNRImages were obtained outside of [facility] [id number] City Hospital Vital Signs Date TimeVital SignValuePerforming AhpferuurSoyfyqda69-61-5730 09:27-0400Body .1 cmRjoo Youssef MD Work Phone: [facility] SystemsOraiiknuso11-81-9581 09:27-0400Body mass index (BMI) [Ratio]36.11 kg/c3VyizlSandy Youssef MD Work Phone: [phone] County Memorial HospitalSvncgaxckd23-48-9275 09:27-0400Body sistbt67.43 kgSandy Youssef MD Work Phone: [phone] SystemsPgmijqjlzm91-40-3070 09:27-0400Diastolic blood hkdpghuw67 mm[Hg]Sandy Youssef MD Work Phone: [phone] SystemsIzqdtylkmk60-16-6787 09:27-0400Heart rate90 /min Sandy Youssef MD Work Phone: [phone] SystemsBkxezknqtv54-93-5234 09:27-2808GeK5% (BldA) [Mass fraction]96 %Sandy Youssef MD Work Phone: [phone] SystemsHhdyxqjvof74-66-3675 09:27-0400Systolic blood mm[Hg]Sandy Youssef MD Work Phone: [phone] SystemsYjruamuytw99-48-5253 09:28-0500Body htzill493.1 cmJanel GOLDMAN Work Phone: [phone] SystemsLdobvjhoeg63-44-8642 09:28-0500Body mass index (BMI) [Ratio]34.71 kg/v4QhtspJanel GOLDMAN Work Phone: [phone] County Memorial HospitalGhmbhkbwow77-06-6391 09:28-0500Body mlakgy32.62 kgJanel GOLDAMN Work Phone: [phone] Memorial HospitalRisxydxdvq80-32-6541 09:28-0500Diastolic blood afiphcrz76 mm[Hg]Janel GOLDMAN Work Phone: [phone] SystemsBwlveiaqlp95-26-9341 09:28-0500Heart rate82 /min Janel Hemmer PA Work Phone: [facility] HospitalMpbzvwwqiz01-26-7472 09:28-0500Respiratory rate16 /minJanel Hemmer PA Work Phone: [facility] HospitalRysxuloopa03-61-5613 09:28-7210ElG7% (BldA) [Mass fraction]95 %Janel Hemmer PA Work Phone: [facility] HospitalVzoneqvtnu60-48-4407 09:28-0500Systolic blood jwoqkkmp386 mm[Hg]Janel Evansmer PA Work Phone: NOR[facility] HospitalDeiyicxbjx64-97-3999 08:33-0500Body aqxdnx158.1 Thu Oconnell SWING FRAME GRINDER OPERATOR Work Phone: [facility] HospitalZqiyrpcteq82-02-9544 08:33-0500Body mass index (BMI) [Ratio]33.48 kg/n6BtrezuMadison Oconnell SWING FRAME GRINDER OPERATOR Work Phone: [phone] SystemsDiqusdmmbj00-96-1445 08:33-0500Body mliayi01.26 kgMadison Oconnell SWING FRAME GRINDER OPERATOR Work Phone: NOR[facility] HospitalLkpyunmolt20-18-1758 08:33-0500Diastolic blood afgxhyve56 mm[Hg]Madison Oconnell SWING FRAME GRINDER OPERATOR Work Phone: [facility] HospitalVkvkhmxaie03-51-7179 08:33-0500Heart txun763 /min Madison Oconnell SWING FRAME GRINDER OPERATOR Work Phone: [facility] HospitalWxjwoeygvy54-11-7678 08:33-0500Respiratory rate18 /minSchrissy Oconnell SWING FRAME GRINDER OPERATOR Work Phone: [facility] HospitalBedqjddypb73-11-0176 08:33-2999QpR4% (BldA) [Mass fraction]98 %Madison Oconnell SWING FRAME GRINDER OPERATOR Work Phone: NOR[facility] HospitalVnkvykthom41-51-9394 08:33-0500Systolic blood pkbacsjl784 mm[Hg]Madison Oconnell SWING FRAME GRINDER OPERATOR Work Phone: [facility] HospitalFmthpvjaan72-67-0318 08:30-0400Body xcutmd839.1 cmKaren Hemmer PA Work Phone: [facility] HospitalEvnmwevfjl48-53-8202 08:30-0400Body mass index (BMI) [Ratio]34.91 kg/w7Uijav Hemmer PA Work Phone: [facility] HospitalGvuifyhary74-59-3863 08:30-0400Body .17 kgBenitoen Hemmer PA Work Phone: [facility] HospitalZmrnckkqqj48-52-4028 08:30-0400Diastolic blood lirjqasl53 mm[Hg]Janel Hemmer PA Work Phone: [facility] HospitalPmainbbtfs14-74-8879 08:30-0400Heart rate99 /min Janel Hemmer PA Work Phone: [facility] HospitalDjsvxbbdyt29-65-3456 08:30-0400Respiratory rate16 /minBenitoen Hemmer PA Work Phone: [facility] HospitalIwdifyrtjs45-94-4388 08:30-1571HkN4% (BldA) [Mass fraction]93 %Janel Hemmer PA Work Phone: [facility] HospitalQownwbfqmw77-99-1079 08:30-0400Systolic blood fupodcgp640 mm[Hg]Janel Hemmer PA Work Phone: NOR[facility] HospitalWzzwwkeiic05-95-1309 13:06-0400Body .1 Zoya Youssef MD Work Phone: [facility] HospitalDrcrboscso68-92-6136 13:06-0400Body mass index (BMI) [Ratio]35.11 kg/c1ImlxiSandy Youssef MD Work Phone: [facility] HospitalGplaozxhwb71-73-7866 13:06-0400Body ujuypj73.71 kgSandy Youssef MD Work Phone: [place] [address]Bssqziexqu89-27-5868 13:06-0400Diastolic blood mm[Hg]Sandy Youssef MD Work Phone: [place] [address]Ypilitbfiw07-39-0820 13:06-0400Heart rate84 /min Sandy Youssef MD Work Phone: [facility] SystemsLbglbixxip46-56-3616 13:06-4238PgV4% (BldA) [Mass fraction]93 %Sandy Youssef MD Work Phone: [facility] SystemsIsjzksqckg45-81-1310 13:06-0400Systolic blood ocvqyqtl203 mm[Hg]Sandy Youssef MD Work Phone: [facility] SystemsHjeomuhigk26-61-2678 09:24-0400Body tqomsl437.1 [facility]-2024 09:24-0400Body mass index (BMI) [Ratio]35.2 kg/s9WvhwdkxszKettering Health [facility]08-24-2024 09:24-0400Body [degF][facility]08-24-2024 09:24-0400Body .17 kgK[facility]tering Health [facility]08-24-2024 09:24-0400Diastolic blood winiwtmx76 mm[Hg][facility]08-24-2024 09:24-0400 Heart rate74 /[facility]08-24-2024 09:24-0400 Respiratory rate18 /[facility]08-24-2024 09:24-0400 SaO2% (BldA) [Mass fraction]94 %[facility]08-24-2024 09:24-0400Systolic blood broipsoo459 mm[Hg][facility] Encounters Encounter DateEncounter TypeCare ProviderFacilityStart: 05-18-2025 End: 14-80-2929YpnianSisrd M Alda MD Work Phone: [facility] MedinceComment on above:Tremors of nervous system; Anxiety; Migraine without aura and without status migrainosus, not intractableStart: 05-11-2025 End: 61-19-0666hvkhrioawkZlhclfu Vytautas Giedraitis MDFacility:VIKI Schultz Start: 04-23-2025 End: 10-09-7042Bceqplxno Result EncounterGeneric External Data ProviderNOMS External Department UnsolicitedStart: 04-23-2025 End: 42-14-3432Gsdgkagot Result EncounterGeneric External Data ProviderNOMS External Department UnsolicitedStart: 04-07-2025 End: 96-28-5434Cytazo outpatient visit 25 minutesSandy Youssef MD Work Phone: [facility] HospitaleComment on above:Spinal stenosis of lumbar region, unspecified whether neurogenic claudication present (Primary Dx); Type 2 diabetes mellitus with diabetic nephropathy, without long-term current use of insulin (HCC); Major depressive disorder, single episode, mild ; Essential hypertensionStart: 04-07-2025 End: 84-56-1567owpgbfufhuEBIKX M ALDANot AvailableStart: 03-15-2025 End: 71-15-0695GhlbewNenxv M Alda MD Work Phone: [facility] GeorgianceComment on above:Anxiety Start: 11-23-2024 End: 52-02-0031EytfjpQpqmk M Alda MD Work Phone: [facility] CI FMComment on above:Tremors of nervous system; AnxietyStart: 10-13-2024 End: 86-67-0252hhczulouqvTPCCX M ALDANot AvailableStart: 09-11-2024 End: 61-22-3605Lvengh Kayy GOLDMAN Work Phone: [facility] CI FMStart: 09-11-2024 End: 26-55-1750Ayxjqd Kayy GOLDMAN Work Phone: [facility] CI FMStart: 09-11-2024 End: 70-01-0007Dnvzjwdz Result EncounterJanel GOLDMAN Work Phone: [facility] External Department UnsolicitedStart: 09-11-2024 End: 91-64-3041Xxsgcj outpatient visit 15 minutesJanel GOLDMAN Work Phone: [facility] CI FMComment on above:Herpes zoster without complication (Primary Dx); Former smoker; Diabetic nephropathy associated with type 2 diabetes mellitus (HCC) ([facility]) Start: 09-11-2024 End: 93-80-8937hlseafpzfbGFCYRHuyen Montaño AvailableStart: 08-12-2024 End: 24-21-6193Phjdfp Nadya Oconnell SWING FRAME GRINDER OPERATOR Work Phone: [facility] CI FMStart: 08-12-2024 End: 60-73-1509Fwoktq Nadya Oconnell SWING FRAME GRINDER OPERATOR Work Phone: [facility] CI FMStart: 08-12-2024 End: 67-09-7621Tcifya outpatient visit 25 minutesShbianca Oconnell SWING FRAME GRINDER OPERATOR Work Phone: [phone] CI FMComment on above:Pansinusitis, unspecified chronicity (Primary Dx); Type 2 diabetes mellitus with other specified complication (CMS/HCC); Type 2 diabetes mellitus without complications (CMS/HCC); 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); Morbid (severe) obesity due to excess calories (CMS/HCC); Chronic obstructive pulmonary disease, unspecified (CMS/HCC); Other specified chronic obstructive pulmonary disease (CMS/HCC)Start: 08-12-2024 End: 52-43-2685nxknmimsgfQYJSJO M SHIVELYNot AvailableStart: 08-11-2024 End: 76-75-4311AwcgsxLsmqv M Alda MD Work Phone: [facility] CI FMComment on above:AnxietyStart: 07-14-2024 End: 47-49-9893UmfroxBrmnnd Rikki AFRICAHSE CI FMComment on above:AnxietyStart: 06-18-2024 End: 43-50-7098ApgikeEjqrr M Alda MD Work Phone: [facility] CI FMComment on above:AnxietyStart: 04-28-2024 End: 50-94-8118Elwhmx flowsGill GOLDMAN Work Phone: [facility] CI FMStart: 04-28-2024 End: 55-94-8714Eeejet Kayy Crowder PA Work Phone: [facility] CI FMStart: 04-28-2024 End: 93-44-6267Oapxyhs encounter statusJanel GOLDMAN Work Phone: [phone] Work Phone: Start: 04-28-2024 End: 85-82-6534Zkxihaiy preventive med est patient 40-64yrsKara GOLDMAN Work [...] Hot flashes due to menopause; Hypertriglyceridemia (CMS/HCC); 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; Migraine without aura and without status migrainosus, not intractable (CMS/HCC); Piriformis syndrome of left side; Psoriasis (CMS/HCC); Pure hypercholesterolemia (CMS/HCC); Smoker; Surgical menopause; Need for vaccinationStart: 04-28-2024 End: 36-02-6050tcuuatlpzlTZORF M HEMMERNot AvailableStart: 04-21-2024 End: 87-15-3795Gfsbptehp Result EncounterGeneric External Data ProviderNOMS External Department UnsolicitedStart: 04-21-2024 End: 84-92-5683Uzhcbfaje Result EncounterGeneric External Data ProviderNOMS External Department UnsolicitedStart: 04-18-2024 End: 13-71-0085Bcowgyiaf Result Desi Youssef MD Work Phone: noms External Department UnsolicitedStart: 04-18-2024 End: 67-72-0868Hushoqevo Result EncounterSandy Youssef MD Work Phone: [facility] External Department UnsolicitedStart: 04-14-2024 End: 58-69-5107Icupca flowsheetSandy Youssef MD Work Phone: [facility] CI FMStart: 04-14-2024 End: 47-38-9518Jtbndu flowsWin Youssef MD Work Phone: [facility] CI FMStart: 04-14-2024 End: 94-47-7572Hwhlsg outpatient visit 25 minutesSandy Youssef MD Work Phone: NOJE CI FMComment on above:Diabetic nephropathy associated with [...] Gastroesophageal reflux disease without esophagitisStart: 04-14-2024 End: 29-56-6482jufmjxcmlyVDAVH M ALDANot AvailableStart: 03-22-2024 End: 97-26-6441zmrxxfbsluVtbnmrjycFulton County Health Center Work Phone: Start: 03-22-2024 End: 05-92-0939Vmmvvep encounter [facility] Work Phone: Start: 06-79-9786nsrjlmhlbaJN RUGEN ALDAFacility:H1 Start: 12-15-2022 End: 63-52-2857ugsuytsarrNPOYKWF HALKER .Facility:C9Uswlv: 12-08-2022 End: 78-23-1715birsfkuqmlAKMWILFIHKJX LAKSHMIPATHY .Facility:B2Pcecm: 09-07-2022 End: 27-36-6575pziyadejjxYX RUGEN ALDAFacility:H9Udcve: 09-07-2022 End: 22-08-0552qdzzwjjobkTK AMELIA S WATTS .Facility:T6Zrabh: 06-01-2022 End: 52-53-4724iunxawqnxdAUKO MCGILL .Facility:N6Aaphq: 05-16-2022 End: 69-92-6440pjzyijtzjsIWBOM PARKERFacility:Q2Gorrw: 04-06-2022 End: 43-55-4752wdymvqdqmqZCJE MCGILL .Facility:A4Shzjx: 65-35-6218Qxeczufjn for preprocedural laboratory examinationDR AMELIA S WATTS .[facility] Start: 03-07-2022 End: 73-03-1926infrhuiiekJL AMELIA S WATTS .Facility:N7Lyskq: 03-06-2022 End: 94-08-7577tdfayywumfRD AMELIA S WATTS .Facility:S2Eegrm: 03-06-2022 End: 92-42-2254Tgsreqclt for preprocedural laboratory examinationDR AMELIA S WATTS .Facility:R1Drwzl: 02-28-2022 End: 27-90-5006qnkmkovjgnZT AMELIA S WATTS .Facility:X9Efsts: 02-24-2022 End: 19-88-0494vwugjwemcqHV AMELIA S WATTS .Facility:S9Eajlk: 01-26-2022 End: 52-15-6082usgvluhsobMEKK MCGILL .Facility:P5Ktyvs: 01-17-2022 End: 61-21-3340tbgxycmgfgCX RUGEN ALDAFacility:H1 Procedures DateProcedureProcedure DetailPerforming ClinicianStart: 27-73-1400BH LUMBAR SPINE MIN 4VGeneric External Data ProviderStart: 29-76-9225MS SACROILIAC JOINT Generic External Data ProviderStart: 17-87-4135Hjnbagdutl glycosylated n9uTmkcdSandy Youssef MD Work Phone: Start: 53-28-4846Ncedechpeb test result abnormal Abnormal laboratory test resultSandy Youssef MD Work Phone: Start: 22-96-6052Kncah albumin quantitativeJanel GOLDMAN Work Phone: Start: 26-76-7349VO CHEST WO CONGeneric External Data ProviderStart: 58-66-8287OR TOMOSYNTHESIS SCREENING Milla Youssef MD Work Phone: Start: 38-15-3264CgqmvpnzrfqRcecm Hemmer PA Work Phone: Start: 85-56-1577Oqeqmizacu glycosylated y7hKqmuwSandy Youssef MD Work Phone: Start: 12-26-2022 End: 73-64-5093Nvmkgge of total hysterectomyH/O total hysterectomySandy Youssef MD Work Phone: Start: 92-38-1353XyhxlkdyvbkPaygl Alda MD Work Phone: Start: 73-91-3164RouoamehagzYannk Alda MD Work Phone: Start: 11-11-2015H/O: hysterectomyHistory of hysterectomySandy Youssef MD Work Phone: H/O: hysterectomyHistory of hysterectomyJanel GOLDMAN Work Phone: Plan of Treatment DateCare ActivityDetailAuthorStart: 44-72-6173Lkwberldm for malignant neoplasm of colonNOMS HealthcareStart: 91-40-7113Giirc screening for proteinDiabetes: Urine Protein ScreeningNOMS HealthcareStart: 07-13-2025 End: 67-36-3723Nhyvvms encounter /15/2025 8:15 AM EST Office Visit [facility] [place] [facility] [address] [place] [id number] Sandy Youssef MD [address] [place] [address] [facility] [place] Ram MedinceStart: 07-07-2025 Hemoglobin A1c measurementDiabetes: Hemoglobin D4WAQFR HealthcareStart: 19-20-9139Sxlse screening for proteinDiabetes: Urine Protein ScreeningNONY HealthcareStart: 04-20-2025 End: 78-31-3492Hbwvyff encounter procedureNOMS CI FMStart: 94-39-4099Sidzepudc for malignant neoplasm of breastMammogramNONY HealthcareStart: 78-38-3999KGCKI- 19 Vaccine ( season)COVID-19 Vaccine ( season)[facility] HealthcareStart: 55-79-7464Knlqnmode vaccinationNONY HealthcareStart: 01-13-2025 Hemoglobin A1c measurementDiabetes: Hemoglobin I8YRXTT HealthcareStart: 10-13-2024 End: 84-11-2859Wsnpbqd encounter dvevskmbv68/17/2025 9:00 AM EDT Office Visit [facility] [address] [place] [address] Sandy Youssef MD [address] [place] [address] [facility] CI FMStart: 09-11-2024 End: 55-81-3989Gwtrcithemuk/Creatinine panel in random UrineMicroalbumin / creatinine urine ratio Lab Routine Diabetic nephropathy associated with type 2 diabetes mellitus (HCC) (CMS/HCC) Expected: 09/11/2024 (Approximate), Expires: 09/11/2025NONY Healthcare Work Phone: Comment on above:Expected: 09/11/2024 (Approximate), Expires: 09/11/2025Start: 09-11-2024 End: 95-62-9030Cjkhadj encounter sntgjttoz43/13/2025 9:30 AM EST Office Visit [facility] [address] [place] [address] Janel Crowder PA [address] [place] [address] ArrivedNOMS CI FMComment on above:ArrivedStart: 08-12-2024 End: 55-82-1795Hpqihhc encounter procedureNOMS CI FMComment on above:Arrived Start: 16-59-0543Khiiakqrkv A1c measurementDiabetes: Hemoglobin H0WNOCM HealthcareStart: 04-28-2024 End: 44-14-8293Oylezeg encounter oqvvzgiww82/30/2024 8:30 AM EDT Office Visit [facility] [address] [place] [phone] Janel Crowder PA [address] [place] [address] ArrivedNONY CI FMComment on above:ArrivedStart: 04-14-2024 End: 46-92-6606JNB panel - Blood by Automated countCBC Lab Routine Essential hypertension (CMS/HCC) Type 2 diabetes mellitus with other specified compl ication, without long-term current use of insulin (CMS/HCC) Diabetic nephropathy associated with type 2 diabetes mellitus (HCC) (CMS/HCC) Pure hypercholesterolemia (CMS/HCC) Expected: 04/14/2024 (Approximate), Expires: 04/14/2025NONY HealthcareComment on above:Expected: 04/14/2024 (Approximate), Expires: 04/14/2025Start: 04-14-2024 End: 30-80-9034Ecafyehtaaplq metabolic 2000 panel - Serum or PlasmaComprehensive metabolic panel Lab Routine Essential hypertension (CMS/HCC) Type 2 diabetes mellituswith other specified complication, without long-term current use of insulin (CMS/HCC) Diabetic nephropathy associated with type 2 diabetes mellitus (HCC) (CMS/HCC) Pure hypercholesterolemia (CMS/HCC)Expected: 04/14/2024 (Approximate), Expires: 04/14/2025NONY HealthcareComment on above:Expected: 04/14/2024 (Approximate), Expires: 04/14/2025Start: 04-14-2024 End: 86-99-4035Hnrso 1996 panel - Serum or PlasmaLipid panel Lab Routine Essential hypertension (CMS/HCC) Type 2 diabetes mellitus with other specified complication, without long-term current use of insulin (CMS/HCC) Diabetic nephropathy associatedwith type 2 diabetes mellitus (HCC) (CMS/HCC) Pure hypercholesterolemia (CMS/HCC) Expected: 04/14/2024 (Approximate), Expires: 04/14/2025NONY HealthcareComment on above:Expected: 04/14/2024 (Approximate), Expires: 04/14/2025Start: 04-14-2024 End: 76-35-8469BJ Breast - bilateral ScreeningBilateral screening mammogram Imaging Routine Encounter for screening mammogram for malignant neoplasm of breast Expected: 04/14/2024, Expires: 06/14/2025[facility] Work Phone: Comment on above:Expected: 04/14/2024, Expires: 06/14/2025Start: 04-14-2024 End: 63-85-1063Rvfxpbs encounter rttgejgng22/16/2024 1:00 PM EDT Office Visit [facility] [address] [facility] [address] [place] [address] Sandy Youssef MD [address] [facility] [address] [place] [address] ArrivedNOMS CI FMComment on above:ArrivedStart: 04-09-2024 Urine screening for proteinDiabetes: Urine Protein ScreeningNONY Healthcare Start: 05-18-9186Vvdwsftqh vaccinationInfluenza Vaccine (#1)[facility] Start: 05-96-5800Mezbviavgm A1c measurementDiabetes: Hemoglobin N9ZHLBP HealthcareStart: 73-93-8863Igmnozizr for malignant neoplasm of breastMammogram NOM HealthcareStart: 61-44-4762Kjpldnokb B Vaccines (1 of 3 - 19+ 3-dose series)Hepatitis B Vaccines (1 of 3 - 19+ 3-dose series)NOM HealthcareStart: 49-13-1274Plplwvjwlshf Vaccine: Pediatrics (0 to 5 Years) and At-Risk Patients (6 to 64 Years) (1 of 2 - PCV)Pneumococcal Vaccine: Pediatrics (0 to 5 Years) and At-Risk Patients (6 to 64 Years) (1 of 2 - PCV)NOM HealthcareStart: 90-65-7900Nbqbvytz screeningDiabetes: Retinopathy ScreeningNONY HealthcareStart: 33-66-5740OKvH/Tdap/Td Vaccines (1 - Tdap)DTaP/Tdap/Td Vaccines (1 - Tdap)NOM HealthcareStart: 14-51-7291NET Vaccines (1 of 1 - Standard series)MMR Vaccines (1 of 1 - Standard series)[facility]OMS HealthcareStart: 29-79-9097Iueirrlyv for malignant neoplasm of colonS[facility] Healthcare Immunizations Immunization DateImmunizationNotesCare JbmfzbfiQedexnij19-34-1192azuglu vaccine- recombinant adjuvanted (Shingrix) 50 MCG/0.5ML vaccineJanel GOLDMAN Work Phone: [phone] SystemsSmzfzwfjmo07-20-0797gvunwildkavh conjugate 20- valent (Prevnar 20) 0.5 ML vaccineJanel GOLDMAN Work Phone: [phone] SystemsQcxskundoi40-83-9316nzjzlhigx, injectable, quadrivalent, preservative freeSandy Youssef MD Work Phone: [phone] SystemsVprjcerzrc56-97-1336Sppviln Bivalent Booster VaccinationSandy Youssef MD Work Phone: [phone] [place], [place] [address]Gyjnjchltu34-39-8855CGVU-KQK-6 (COVID-19) vaccine, mRNA, spike protein, LNP, bivalent, preservative free, 30 mcg/0.3 mL dose, maria esther-sucrose formulationSandy Youssef MD Work Phone: [phone] SystemsTtrevzvmnx88-76-9961mrsfeiivj virus vaccine, unspecified formulationSandy Youssef MD Work Phone: [phone] [place], [place] [address]Blabyqwfqa55-09-9157Gkxmlrbtr, injectable, Madin Barnhill Canine Kidney, preservative free, quadrivalentSandy Youssef MD Work Phone: [phone] [place] [address] Payers DatePayer CategoryPayerPolicy [id number] Health InsuranceHEALTHSCOPE Member Subscriber Plan / Payer (Effective 2022-Present) Name: Dhara Dallas ID: [id number] Relation to Subscriber: Self Name: Dhara Dallas Payer ID: Not on file Type: Not on file Address: [place] [id number] 1.2.840.351978.1.13.693.2.7.3.886[id number] 2.16.840.1.437057.3.57[id number] 2.16840.1.552686.3.57[id number] 2.16.840.1.157997.3.579.[id number] 2.840.1.831595.3.579.2.4[id number] 2.840.1.010679.3.57[id number] 2.840.1.325833.3.579.[id number] 2.840.1.940150.3.57[id number] 2.840.1.097846.3.57[id number] 2.840.1.365634.3.579.[id number] 2.840.1.981574.3.57[id number] 2.840.1.611696.3.579.2.91154-24-0204Hcvlsmf6854537 2.840.1.132613.3.579.[id number] 2.840.1.233883.3.57[id number] 2.16.840.1.343866.3.57[id number] 2.16.840.1.696254.3.579.2.[id number] 2.16.840.1.975964.3.579.2.7[id number] 2.16.840.1.003404.3.579.2.977437-65-0456Rtomque2754377 2.16.840.1.665947.3.579.2.593015-26-8610Fzwxhbl1557391 2.16.840.1.472339.3.579.2.319667-41-6998Iftsdjd2038495 2.16.840.1.879496.3.579.2.02[id number] 2.16.840.1.857220.3.579.2.03768-72-3078Tmdmwpf658[id number] Social History DateTypeDetailFacilityStart: 26-04-9216Dqcywfb smoking status NHISSmoker (finding)[facility]: 89-04-1801[facility]: 01-01-2023 End: 89-85-3225Zgyckjh smoking status NHISSmokes tobacco dailyNOMS Healthcare Work Phone: Start: 96-19-8907Aiyikpf of tobacco useCigarette SmokerNOMS HealthcareStart: 01-01-2023 End: 64-13-6850Mkeeltk use and exposureSmokeless tobacco non-userNOMS Healthcare Start: 04-14-2024 End: 63-03-4902Rukiouqxu beverage intakeCurrent drinker of alcohol (finding)NOMS HealthcareStart: 10-22-2023 End: 62-07-4304Btdnkwg of Social functionNOMS HealthcareStart: 10-22-2023 End: 76-15-5664Cpxlpd connection and isolation panelSALT LAKE REGIONAL MEDICAL CENTER HealthcareStart: 17-83-3014Ql a typical week, how many times do you talk on the telephone with family, friends, or neighbors?Patient declinedNONY HealthcareAre you now , , , , never or living with a partner? MarriedSALT LAKE REGIONAL MEDICAL CENTER HealthcareIn the past 12 months, was there a time when you were not able to pay the mortgage or rent on time?NoNOMS HealthcareStart: 05-12-2023 Alcohol Comment1-2 drinks monthly or less, caffeine yes coffee,sodaNOMS HealthcareStart: 36-16-5837Hcx assigned at birthNot on fileSALT LAKE REGIONAL [facility]ICAL [facility]ENTER HealthcareStart: 81-70-1078Xwqiblz smoking status NHISEx-smokerSALT LAKE REGIONAL MEDICAL CENTER Healthcare Goals DatePatient GoalDesired Activity/StatePersonal health goal Functional Status TvmzLgnifsgoixUlzbtqEqbvsmkk76-77-9302Ndgrpre Health Questionnaire 2 item (PHQ- 2) [Reported][facility] SystemsPkxlojpjic19-10-9436Dfrtipd Health Questionnaire 2 item (PHQ- 2) [Reported][facility] Clinical Notes 12-22-2020 to 04-07-2025 Note Date & DazcPvotRauytmlb20-70-1451 History of Present illness Narrative* Sandy Youssef [...] being taken. She does not see a solar pool heating installer. Over the past 2 weeks, how often [...] tablet 3 montelukast (Singulair) 10 MG tablet ieaqcrvergej-riwh-qahqgqzq-folic acid (Centrum Silver, geriatric,) tablet as directed Orally nystatin (Mycostatin) 017459 UNIT/ML suspension OLANZapine (ZyPREXA) 10 MG tablet [...] Recheck, Anxiety Meds F/U. documented in this encounterPemiscot Memorial Health SystemsJryqhxnjnb10-75-6148 History of Present illness Narrative* SUSI Martin [...] tablet 3 montelukast (Singulair) 10 MG tablet cvqbqsdvnici-rzqu-ocwtgrfz-folic acid (Centrum Silver, geriatric,) tablet as directed Orally nystatin (Mycostatin) 732254 UNIT/ML suspension OLANZapine (ZyPREXA) 10 MG tablet [...] diabetes mellitus (HCC) ([facility]/HCC) - Microalbumin / creatinine urine ratio; Future Urine sample obtained today for Microalbumin testing. Follow up for Appointment As Scheduled. documented in this encounterPemiscot Memorial Health SystemsFnoqygrmaj53-76-1287 History of Present illness Narrative* Madison Oconnell [...] CAPSULE BY MOUTH DAILY 100 capsule 1 Ipdvcbolcko-Oivkcjhmc-Dcmtih (Trelegy Ellipta) 100-62.5-25 MCG/ACT aerosol powder Inhale [...] tablet 1 montelukast (Singulair) 10 MG tablet hwmuoaacljsw-xjdp-zjvjmwbx-folic acid (Centrum Silver, geriatric,) tablet as directed Orally nystatin (Mycostatin) 402701 UNIT/ML suspension OLANZapine (ZyPREXA) 10 MG tablet [...] Irritable bowel disease Respiratory failure with hypoxia (CMS/[facility]) 01/11/2023 Sepsis (CMS/[facility]) 01/11/2023 Past Surgical History: Procedure Laterality Date [...] with diabetic nephropathy ([facility]) We discussed today, the importance of proper [...] to excess calories ([facility]) Discussed goal of BMI < 30. Advised [...] No follow-ups on file. documented in this [facility]11-20-2024 Telephone encounter Note* Telephone Encounter - SUSI Martin - 06/18/2024 10:03 AM EST OARRS reviewed, Rx sent into patient's pharmacy. [facility] SystemsJcdydedzvv20-30-4226 Miscellaneous Notes* Telephone Encounter - SUSI Martin - 06/18/2024 10:03 AM EST OARRS reviewed, Rx sent into patient's pharmacy. documented in this [facility]09-30-2024 History of Present illness Narrative* SUSI [...] CAPSULE BY MOUTH DAILY 100 capsule 1 Ymyknolnbic-Oaxfxioyy-Zhvjhe (Trelegy Ellipta) 100-62.5-25 MCG/ACT aerosol powder Inhale [...] tablet 1 montelukast (Singulair) 10 MG tablet mujxxgcegtsq-umdc-acryzzjg-folic acid (Centrum Silver, geriatric,) tablet as directed Orally nystatin (Mycostatin) 653979 UNIT/ML suspension OLANZapine (ZyPREXA) 10 MG tablet [...] time. Severe persistent asthma with acute exacerbation ([facility]) This is a chronic medical condition that is stable since last assessment. No changes in treatment are suggested at this time. COPD with chronic bronchitis ([facility]) This is a chronic medical condition that is stable since last assessment. No changes in treatment are suggested at this time. Essential hypertension ([facility]) Patient's blood pressure is currently well controlled. [...] time. Stage 3a chronic kidney disease (HCC) ([facility]) This is a chronic medical condition that [...] diabetes mellitus (HCC) ([facility]) Will continue to monitor with routine HgbA1c. Morbid (severe) obesity due to excess calories ([facility]) Encouraged portion control, decrease simple sugars and carbohydrates, gradually increase activity level. Aim for continued gradual steady weight loss. Type 2 diabetes mellitus with other specified complication, without long-term current use of insulin ([facility]) Will continue to monitor with routine HgbA1c. Type 2 diabetes mellitus without complication, without long-term current use of insulin ([facility]/HCC) - semaglutide (Ozempic, 1 MG/DOSE,) 2 MG/1.5ML [...] Will continue to monitor with routine labs. halfway (current) use of inhaled steroids This is [...] for Appointment As Scheduled. documented in this encounterPemiscot Memorial Health SystemsSthmsddcup35-20-9119 History of Present illness Narrative* Sandy Youssef [...] being taken. She does not see a solar pool heating installer. Current Outpatient Medications on File Prior to [...] CAPSULE BY MOUTH DAILY 100 capsule 1 Evixojqbzcy-Dbtfyysac-Mxakym (Trelegy Ellipta) 100-62.5-25 MCG/ACT aerosol powder Inhale 1 puff in the morning. 1 each 11 gabapentin (Neurontin) 300 MG capsule loratadine (Claritin) 10 MG tablet 1 (one) time each day at the same time. metFORMIN (Glucophage) 500 MG tablet TAKE ONE TABLET BY MOUTH DAILY WITH A MEAL 100 tablet 1 oesmrucxuftv-hadn-bzfthpek-folic acid (Centrum Silver, geriatric,) tablet as directed Orally nystatin (Mycostatin) 865389 UNIT/ML suspension OLANZapine (ZyPREXA) 10 MG tablet [...] (around 10/12/2024) for Diabetes. documented in this encounterPemiscot Memorial Health SystemsQfohyxcgcm87-05-9634 NotePROCEDURE: XR SACRUM_COCCYX COMPARISON: None. HISTORY: Lumbar [...] Electronically authenticated by: BRANDON CRUZ Date: 2022-12-15 08:23[facility]02-09-2023 NoteCONSULTATION CONSULTATION DATE: 09/07/2022 HISTORY OF PRESENT [...] otherwise indicated. Patient agrees with this plan.[facility] 09-07-2022 NoteCONSULTATION PROCEDURE DATE: 09/07/2022 PREOPERATIVE DIAGNOSIS: [...] be followed up in the office. [facility] CenterIttjisfn88-13-8884 NoteCONSULTATION CONSULTATION DATE: 06/01/2022 HISTORY OF PRESENT [...] in three months' time unless otherwise indicated.[facility] CenterZxvqkrat49-96-2811 Note CONSULTATION PROCEDURE DATE: 06/01/2022 PREOPERATIVE DIAGNOSIS: [...] will be followed up in the office.[facility] CenterHrzzgihx71-68-8917 NoteCONSULTATION PROCEDURE DATE: 04/06/2022 PRE AND POSTOPERATIVE [...] will be followed up in the clinic.[facility] 04-06-2022 NoteCONSULTATION CONSULTATION DATE: 04/06/2022 HISTORY OF [...] is to continue with her multivitamin regimen.[facility] CenterVrdpeluy61-02-3456 NoteCONSULTATION CONSULTATION DATE: 01/26/2022 This is a [...] be followed up in the office post-procedure. [facility] Signed and Approved by: GRANT MCGILL . 02/02/2022 16:26:00[facility]05-26-2021 NoteHNO ID: [id number] Author: Naina Oliva MD Service: ? 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 It is unl (more content not included)...[facility]Evaluation noteNo assessment information availableSelect Medical Specialty Hospital [facility], Inc Work Phone: Evaluation note* Diagnosis Morbid obesity [...] Anxiety state, unspecified documented in this encounter [facility] HealthcareEvaluation note* Diagnosis Diabetic nephropathy [...] esophagitis Esophageal reflux documented in this encounter [facility] HealthcareEvaluation note* Diagnosis Morbid obesity [...] associated with type 2 diabetes mellitus (HCC) (CMS/[facility]) Morbid (severe) obesity due to excess calories ([facility]) Type 2 diabetes mellitus with other specified complication, without long-term current use of insulin (CMS/HCC) Type 2 diabetes mellitus without complication, without long-term current use of insulin ([facility]) Adjustment disorder with anxiety (CMS/[facility]) Adjustment disorder with anxiety Seasonal allergic rhinitis due to pollen Depressive disorder ([facility]/HCC) Depressive disorder, not elsewhere classified Dizziness Dizziness and giddiness History of hysterectomy Acquired absence of both cervix and uterus Hot flashes due to menopause Hypertriglyceridemia (CMS/HCC) Pure hyperglyceridemia halfway (current) use of inhaled steroids Migraine without [...] pulmonary disease (CMS/HCC) documented in this encounter [facility] HealthcareEvaluation note* Diagnosis Morbid obesity (CMS/HCC)- [...] use of insulin ([facility]/HCC) Anxiety Anxiety state, unspecified Gastroesophageal reflux disease [...] diabetes mellitus (HCC) ([facility]/HCC) Tremors of nervous system Anxiety Anxiety state, unspecified documented in this encounter [facility] HealthcareEvaluation note* Diagnosis Morbid obesity (CMS-HCC)- [...] Anxiety state, unspecified documented in this encounter [facility] HealthcareEvaluation note* Diagnosis Morbid obesity ([facility]-HCC)- Primary Morbid obesity Type 2 diabetes mellitus without complication, without long-term current use of insulin (HCC) Essential hypertension Unspecified essential hypertension Smoker Tobacco use disorder Dizziness Dizziness and giddiness Migraine without aura and without status migrainosus, not intractable Acute exacerbation of chronic obstructive pulmonary disease ([facility]) Obstructive chronic bronchitis with exacerbation Nicotine dependence, cigarettes, with unspecified nicotine-induced disorders- Primary Type 2 diabetes mellitus with other specified complication, without long-term current use of insulin ([facility]) Adjustment disorder with anxiety Adjustment disorder with anxiety Migraine without aura and without status migrainosus, not intractable Pure hyperglyceridemia (E78.1) Pure hyperglyceridemia Stage 3a chronic kidney disease ([facility]) Diabetic nephropathy associated with type 2 diabetes mellitus (HCC)- Primary Essential hypertension Unspecified essential hypertension Encounter for screening mammogram for malignant neoplasm of breast Type 2 diabetes mellitus with other specified complication, without long-term current use of insulin ([facility]) Morbid (severe) obesity due to excess calories ([facility]) Body mass index (BMI) 37.0-37.9, adult Chronic [...] nephropathy associated with type 2 diabetes mellitus ([facility]) Spinal stenosis of lumbar region, unspecified whether neurogenic claudication present- Primary Type 2 diabetes mellitus with diabetic nephropathy, without long-term current use of insulin ([facility]) Major depressive disorder, single episode, mild Major depressive disorder, single episode, mild Essential hypertension Unspecified essential hypertension documented in this encounter [facility] HealthcareEvaluation note* Diagnosis Morbid obesity ([facility]-HCC)- Primary Morbid obesity Type 2 diabetes mellitus [...] complication, without long-term current use of insulin ([facility]) Adjustment disorder with anxiety Migraine without aura and without status migrainosus, not intractable Pure hyperglyceridemia (E78.1) Pure hyperglyceridemia Stage 3a chronic kidney disease ([facility]) Diabetic nephropathy associated with type 2 diabetes mellitus (HCC)- Primary Essential hypertension Unspecified essential hypertension Encounter for screening mammogram for malignant neoplasm of breast Type 2 diabetes mellitus with other specified complication, without long-term current use of insulin ([facility]) Morbid (severe) obesity due to excess calories ([facility]) Body mass index (BMI) 37.0-37.9, adult Chronic obstructive pulmonary disease, unspecified (HCC) Atherosclerosis of aorta Pure hypercholesterolemia Migraine without aura and without status migrainosus, not intractable Depressive disorder Depressive disorder, not elsewhere classified Anxiety Anxiety state, unspecified Gastroesophageal reflux disease without esophagitis Esophageal reflux Essential hypertension- Primary Unspecified essential hypertension Type 2 diabetes mellitus with diabetic nephropathy, without long-term current use of insulin ([facility]) Diabetic nephropathy associated with type 2 diabetes mellitus ([facility]) Spinal stenosis of lumbar region, unspecified whether neurogenic claudication present- Primary Type 2 diabetes mellitus with diabetic nephropathy, without long-term current use of insulin ([facility]) Major depressive disorder, single episode, mild Essential [...] section and content) DATE CREATED AUTHOR 08/30/2021 [facility] DATE CREATED AUTHOR AUTHOR'S ORGANIZ JONATHAN 12/15/2021 [employer] DATE CREATED AUTHOR AUTHOR'S ORGANIZ ATION 01/05/2023 [facility] DATE CREATED AUTHOR AUTHOR'S ORGANIZ ATION 09/14/2024 [facility] DATE CREATED AUTHOR AUTHOR'S ORGANIZ ATION 04/09/2025 [facility] EPIC DATE CREATED AUTHOR AUTHOR'S ORGANIZ ATION 05/16/2025 [facility] Care Teams (unrecognized sec tion and content) Team Status: Active Member Role Status Dates Sandy Youssef MD Primary Care Provider Active Team Status: Inactive Member Role Status Dates Sandy Youssef MD Primary Care Provider Active S tart: March 22, 2024 End: March 22, 2024Kentrell Diana ProviderActiveStart: March 22, 2024 End: March 22, 2024Team MemberRelationshipSpecialtyStart DateEnd Date Sandy Youssef MD [address] [facility] [address] [place] [address] PCP - Generalmi Medicine12/21/22Team MemberRelationshipSpecialtyStart DateEnd Date Sandy Youssef MD [address] [facility] [address] [place] [address] PCP - GeneralFamily Medicine12/21/22Team MemberRelationshipSpecialtyStart DateEnd Date Sandy Youssef MD [address] [facility] [address] [place] [address] PCP - GeneralFamily Medicine12/21/22Team MemberRelationshipSpecialtyStart DateEnd Date Sandy Youssef MD [address] [facility] [address] [place] [address] PCP - GeneralFami Medicine12/21/22Team MemberRelationshipSpecialtyStart DateEnd Date Sandy Youssef MD [address] [place] [address] [place] [address] PCP - GeneralFamily Medicine12/21/22Team MemberRelationshipSpecialtyStart DateEnd Date Sandy Youssef MD [address] [place] [address] [place] [address] PCP - GeneralFamily Medicine523Team MemberRelationshipSpecialtyStart DateEnd Date Sandy Youssef MD [address] [place] [address] [place] [address] PCP - GeneralFamily Medicine12/21/22Team MemberRelationshipSpecialtyStart DateEnd Date Sandy Youssef MD [address] [place] [address] [place] [address] PCP - GeneralFamily Medicine12/21/22Team MemberRelationshipSpecialtyStart DateEnd Date Sandy Youssef MD [address] [place] [address] [place] [address] PCP - GeneralFamily Medicine12/21/22Team MemberRelationshipSpecialtyStart DateEnd Date Sandy Youssef MD [address] [place] [address] [place] [address] PCP - GeneralFamily Medicine12/21/22Team MemberRelationshipSpecialtyStart DateEnd Date Sandy Youssef MD [address] [place] [address] [place] [address] PCP - GeneralFamily Medicine23Team MemberRelationshipSpecialtyStart DateEnd Date Sandy Youssef MD [address] [place] [address] [place] [address] PCP - GeneralFamily Medicine12/21/22Team MemberRelationshipSpecialtyStart DateEnd Date Sandy Youssef MD [address] [facility] [address] [place] [address] PCP - [facility]12/21/22Team MemberRelationshipSpecialtyStart DateEnd Date Sandy Youssef MD [address] [facility] [address] [place] [address] PCP - [facility]12/21/22Te MemberRelationshipSpecialtyStart DateEnd Date Sandy Youssef MD [address] [facility] [address] [place] [address] PCP - [facility]12/21/22Te MemberRelationshipSpecialtyStart DateEnd Date Sandy Youssef MD [address] [facility] [place] [address] PCP - [facility]12/21/22 Goals (unrecognized section and content) Goals may be documented in a n alternate section Reason for Visit (unrecogniz ed section and content) ReasonCommentsMed RefillReasonCommentsDiabetesLast A1c was 6.5ReasonOnset Date CommentsMed [id number]st 5.7 FOR RECORDS PERTAINING TO PATIENTS WHO [...] BE BASED ON THE PRIMARY CLINICAL RECORDS. [facility] [employer] [facility] provides no warranty or guarantee of the accuracy or completeness of information in this document.
--- OUTSIDE RECORDS SUMMARY | 2025-07-09 07:51 | XMS_ITS | Patient Health Record ---
Author Organization 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 Name Role Phone Josey Gonsalez MD Primary Care Provider Anders Bartlett Unavailable [phone] Allergies Allergen (clinical drug ingredient) Drug/Non Drug [...] Administration Date Status Comme nts Flu, Fluzone (31026) 6 mos+, single-dose syringe/vial (3207-3561) Unknown 06/15/2022 Administered SARS-COV-2 (COVID 19) bivalent 30 mcg/0.3 ml egigWkinotq51/17/2022dministered Social History Tobacco Use: Social History Observation [...] Status W/U Status Risk Notes Problem Obesity (759747183) Obesity, unspecified (E66.9) ActiveconfirmedProblemUncomplicated moderate persistent asthma (046243944) Moderate persistent asthma, uncomplicated (J45.40)ActiveconfirmedProblemLong- term current use of inhaled steroid (630830134)superintendent terminal (current) use of inhaled steroids (Z79.51)ActiveconfirmedProblemChronic obstructive pulmonary disease (57567123)Chronic obstructive pulmonary disease (J44.9)Activeconfirmed ProblemHypertension (69853456)Hypertension (I10)ActiveconfirmedProblemCOPD - Chronic obstructive pulmonary disease (22267637)COPD (chronic obstructive pulmonary disease) (J44.9)ActiveconfirmedProblemChronic kidney disease (731996193)Chronic kidney disease (N18.9)ActiveconfirmedProblemMental disorder caused by drug (182452508)Cigarette nicotine dependence with nicotine-induced disorder (F17.219)ActiveconfirmedProblemLaboratory test result abnormal (718778666)Abnormal laboratory test (R89.9)ActiveconfirmedProblemLung field abnormal (428649719)Ground glass opacity present on imaging of lung (R91.8) ActiveconfirmedProblemRenal cyst (953061456)Bilateral renal cysts (N28.1)Active confirmedProblemBody mass index 35.00 to 39.99 (404663623870214)Body mass index [BMI] 37.0-37.9, adult (Z68.37)Activeconfirmed Encounters Encounter Location Date Provider Diagnosis [facility] [place] [address] [place] [address] 03/18/2025 Anders Hickey Plan Of Treatment Pending [...] Coverage End Date [employer] [address] [address] [place] [address] [id number] Nesha Dallas Self - patient is the [...]
--- NOTE | 2025-07-09 07:52 | PM.CN ---
Consult Note: HPI Data of Consult Patient: known to practice within the last 3 years Consult date: 07/09/25 Requesting Physician: Josefina Graves NP Primary Care Provider: SANDY YOUSSEF Consult Narrative Reason for consult: low back and bilateral hip pain Narrative: Nesha Dallas a pleasant 54 year old female returns for care of chronic bilateral low back and SIJ pain > 5 years unresponsive to heat, ice, tylenol, nsaids, and > 6 weeks of provider guided HEP. prior imaging consistent with multilevel degeneration and facet arthropathy. Pt notes significant improvement from prior injections, notes worsening pain over the last 6 months without injury. Pain today 6/10 aching increasing to 8/10 with twisting, bending, pushing, pulling, lifting, housework. Pt finds benefit to sitting, lying, and sleep. currently on duloxetine, meloxicam, flexeril, xanax prn with minimal benefit but denies side effects. recently underwent bilateral L4-5 L5-S1 MBB #1 and #2 with >80% improvement in pain and functional ability for at least than 2 hours. noted significant improvement in pain with standing, vacuuming, walking, lifting, twisting, housework, ADLs. preop pain up to 8/10 post op pain 0/10. She noted significant relief with vacuming and standing/walking. cc:: CC: Josefina Graves NP Review of Systems ROS Musculoskeletal Reports: back pain; Denies: extremity pain [facility] History Surgical History History of tonsillectomy ?Z90.89 - Acquired absence of other organs (ICD-10) H/O hemorrhoidectomy ?Z98.890 - Other specified postprocedural states (ICD-10) H/O: hysterectomy ?Z90.710 - Acquired absence of both cervix and uterus (ICD-10) H/O ovarian cystectomy ?Z98.890 - Other specified postprocedural states (ICD-10) ?Z87.42 - Personal history of other diseases of the female genital tract (ICD-10) History of cholecystectomy ?Z90.49 - Acquired absence of other specified parts of digestive tract (ICD-10) History of appendectomy ?Z90.49 - Acquired absence of other specified parts of digestive tract (ICD-10) S/P ?Z98.891 - History of uterine scar from previous surgery (ICD-10) Social History Smoking status: Heavy tobacco smoker Gender Identity: female Meds Home Medications and Allergies Home Medications ?Medication ?Instructions ?Recorded ?Confirmed ?Type 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 1 tab PO QDAY 01/03/23 06/29/25 History amlodipine 10 mg tablet 10 mg PO DAILY 01/03/23 06/29/25 History cyclobenzaprine 10 mg tablet 5 mg PO QPM 01/03/23 06/29/25 History duloxetine 60 mg capsule,delayed 90 mg PO DAILY 01/03/23 06/29/25 History release (Cymbalta) olanzapine 5 mg tablet 10 mg PO QPM 01/03/23 06/29/25 History omeprazole 20 mg capsule,delayed 40 mg PO DAILY 01/03/23 06/29/25 History release potassium chloride 10 mEq 10 meq PO DAILY 01/12/23 06/29/25 History tablet,extended release (K-Tab) alprazolam 0.5 mg tablet 0.5 mg PO DAILY 04/23/25 06/29/25 History atorvastatin 40 mg tablet 40 mg PO DAILY 04/23/25 06/29/25 History metformin 500 mg tablet 500 mg PO DAILY 04/23/25 06/29/25 History rimegepant 75 mg disintegrating 75 mg PO DAILY PRN migraine 04/23/25 06/29/25 History tablet (Nurtec ODT) headache meloxicam 7.5 mg tablet 7.5 mg PO BID PRN pain #60 tabs 05/21/25 06/29/25 Rx Allergies Allergy/AdvReac Type Severity Reaction Status Date / Time hydromorphone (From Dilaudid) Allergy Mild itch Verified 06/29/25 07:39 Exam Constitutional Documenting provider has reviewed patient's vital signs: yes Common normals: no apparent distress, oriented x3 and alert General appearance: cooperative [facility] Common normals: normocephalic, hearing grossly normal bilaterally and moist oral mucous membranes Head and scalp: normocephalic Eye Common normals: PERRL Pupil: PERRL Neck & C-Spine Common normals: full ROM General: normal visual inspection Chest Common normals: inspection of chest normal Respiratory Common normals: normal respiratory effort, no retractions and no use of accessory muscles Back & Pelvis Lumbar spine/lower back: ROM limited, pain with ROM, lumbar spinal tenderness and straight leg raise negative bilaterally Other: strength 5/5 in BLE sensation intact BLE Neuro Common normals: oriented x3 Sensorium/orientation: alert Psych Common normals: mental status grossly normal, thought process normal, cooperative, affect normal, speech normal and activity/motor behavior normal Speech: normal speech Thought process: normal thought process Results Imaging lumbar xray : Attestation: I have reviewed the pertinent imaging results. Radiologist's impression: Vertebral body heights appear maintained. Endplate and facet joint degenerative changes with moderate disc space narrowing L4-L5 L5-S1 which has progressed since 2022. Additional Findings Additional findings: If on a controlled substance or opioids, I have checked an [place] report on this patient and there are no aberrancies noted in the prescribing history.??If on a controlled substance or opioid a drug screen was completed and reviewed within the last year, and if there has not been a drug screen completed we ordered one today to monitor higher risk, state monitored pain medication use. As part of providing excellent, safe, comprehensive care, the following was completed at our patient's visit: 1. A medication reconciliation and review to ensure accurate knowledge of current/active medications, including asking our patients to inform us about any zwzz-jki-mdnsieb medications or herbal remedies/nutritional supplements/alternative remedies. 2. A review to specifically ensure our patients have had annual screening for screening for depression, screening for tobacco use, and screening for unhealthy alcohol use. For concerning screenings had a discussion with the patient, provided patient education, and recommended follow-up with primary care provider when appropriate. If patient noted with a risk of falling, they received education on strength, gait, and balance training to prevent future risk of falling. Portions of this note may have been carried over from the previous visit and updated as appropriate. Please note this office utilizes paper charting in addition to the electronic medical record. A list of current medications, vitals, and PMH is available there as the clinical staff outside of myself do not have access to [facility] charting during the clinic day operations. As part of providing quality comprehensive care the current medications, vitals, and PMH were reviewed in the paper chart. Assessment and Plan Assessment and Plan (1) Lumbar spondylosis: (2) Sacroiliitis: Assessment and Plan: 05/11/25 bilateral SIJ injection >75% improvement ongoing Plan The patient has had over 3 months of moderate to severe low back pain with functional impairment and inadequate response to conservative care including NSAIDS (unless there are contraindication such as concurrent blood thinners), multiple oral or topical pain medications, and home exercise program/physical therapy.? Patient has completed >6 weeks of guided home exercise program and/or formal physical therapy program without relief of their symptoms.? The Oswestry Disability Index was completed, and the patient scored a 48%.? proceed with bilateral L4-5 L5-S1 facet RFA under fluoroscopy for axial facet mediated back pain change meloxicam 15mg daily as needed pain, take with food. denies heartburn, indigestion, bleeding, bruising. pt finds more benefit to 15mg prn vs 7.5mg BID PRN continue flexeril 5mg PRN pain/spasms, can refill at 5-10mg TID PRN pain/spasms if needed. sparingly utilizing at this time f/u 1 month after RFA complete
--- OUTSIDE RECORDS SUMMARY | 2025-07-09 07:53 | XMS_ITS | Clinical Summary ---
Author Organization [facility] Address [address] [place] [address] Care Team Providers Care Duplicate Maker Name Role Phone Unavailable Primary Care Provider [...] number is lower riskNot on file12/22/2020ata from: [email or web address] Last address used for calculationNot on file12/22/2020CommentsUnknownSex and Gender InformationValueDate RecordedSex Assigned at UuuauHpvmbv40/07/2021 4:52 PM EDTLegal YhdFsjvzy85/02/2012 8:22 AM ESTGender VddssfzkJenxbq74/07/2021 4:52 PM EDTSexual EqxaotipjphIclnciei75/07/2021 4:52 PM EDT Last Filed Vital Signs Vital SignReadingTime TakenCommentsBlood Pressure--Pulse--Temperature-- Respiratory Rate--Oxygen Saturation--Inhaled Oxygen Concentration--Nrqodu93.8 kg (220 lb)12/22/2020 12:24 PM CQRVgxvpy693.4 cm (5' 5.5 )12/22/2020 12:24 PM EDT Body Mass Index36.05012/22/2020 12:24 PM EDT Plan of Treatment Health MaintenanceDue DateLast DoneCommentsAnxiety Ciyikzhrr60/01/1988Depression Yypghqrff12/01/1988HIV Hwubtckbo90/01/1988Hepatitis C Yxuiuzxsg69/01/1988 DTaP,Tdap,Td Vaccine (1 - Tdap)1988Hepatitis B Vaccine (1 of 3 - 19+ 3- dose series)1988Cervical Cancer Havlqjxjg84/01/1991Mammogram Screening 2009CT Zxzvhmvfciak71/01/2015Cologuard (FIT-DNA)2014Colonoscopy 2014Colorectal Cancer Kswbkbhjy12/01/2015Diabetes Ydtkzpqlz18/01/2015Fecal Occult Blood2014Lipid Bdsqwnrcx77/01/2748Olwsfxhsdcgaf50/01/2015 Pneumococcal Vaccine: 50+ (1 of 1 - PCV)2019Shingrix Vaccine (1 of 2) 2019Covid-19 Vaccine (1 - 2024- season)2025Influenza Vaccine (#1) 2025 Insurance
--- OUTSIDE RECORDS SUMMARY | 2025-07-09 07:53 | XMS_ITS | Clinical Summary ---
Author Organization [facility] Healthcare Address [address] [place] [address] Care Team Providers Care Commercial Teller Name Role Phone Josey Youssef MD Primary Care Provider [phone] Allergies Active AllergyReactionsCriticalityNoted DateCommentsHydromorphoneItching 03/04/2013 Other Reaction(s): Unknown Medications MedicationSigDispense QuantityRefillsLast FilledStart DateEnd DateStatus albuterol HFA 90 mcg/act inhaler 12/21/2022ctive nystatin (Mycostatin) 382673 UNIT/ML suspension 09/07/2022ctive traMADol (Ultram) 50 MG tablet Indications:Other chronic painTAKE ONE TABLET BY MOUTH FOUR TIMES A DAY NEEDED 120 tablet 02/22/2023ctive aspirin 81 MG EC tablet 1 (one) time each day at the same time.Active loratadine (Claritin) 10 MG tablet 1 (one) time each day at the same time.Active fypnkcpvrchr-dhmo-ayyvrkyz-folic acid (Centrum Silver, geriatric,) tablet as directed [...] Continue Current meds. 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 Dhjyzzvdh67/11/2023 Assessment & Plan (04/09/2023 8:43 AM EDT): Increase fluids, drinking electrolyte shelter (current) use of inhaled /07/2023Lung field abnormal 04/05/2023djustment disorder with zccuaiu5712/26/2022llergic byquavgl28/30/2023 Paxrsg2212/26/2022aytime mkvgivskdt49/30/2023epressive ugsunihm06/30/2023 Assessment & Plan (04/14/2024 1:17 PM EDT): This is a chronic medical condition that is stable since last assessment. No changes in treatment are suggested at this time. Continue Current meds. Essential slakwbomxyyz38/30/2023 Assessment & Plan (04/07/2025 9:48 AM EDT): [...] the importance of taking them as prescribed. [employer] handouts Assessment & Plan (04/14/2024 1:13 PM [...] the importance of taking them as prescribed. [employer] handouts Assessment & Plan (04/09/2023 8:31 AM [...] the importance of taking them as prescribed. [employer] diet handouts Hot flashes due to asrqfhldq01/30/6339Kkldrnjtmhfaxwmllhjg61/30/2023Irritable bowel syndrome with lkdgaqma86/30/2023Leg length pgpgwnojrql64/30/2023Migraine without aura and without status migrainosus, not yyushegozjl12/30/2023 Assessment & Plan (10/23/2023 9:00 AM EDT): [...] frequent Morbid (severe) obesity due to excess nawrlrbi11/30/2023 Assessment & Plan (04/14/2024 1:17 PM EDT): Weight loss encouraged Assessment & Plan (04/09/2023 8:30 AM EDT): Weight loss and exercise encouraged Osteoarthritis of lumbar spine12/26/2022Other chronic pain12/26/2022iriformis syndrome of left side12/26/20226709Ficujrcum25/30/2023Pure hypercholesterolemia 12/26/2022 Assessment & Plan (04/14/2024 1:14 PM EDT): This is a chronic medical condition that is stable since last assessment. No changes in treatment are suggested at this time. Continue Current meds. Stage 3a chronic kidney kyofqwi7612/26/2022 Assessment & Plan (10/23/2023 8:56 AM EDT): Saw Nephrology 6-8 months ago Surgical /30/2023Tension ekjwhgur23/30/2023Type 2 diabetes mellitus 12/26/2022 Assessment & Plan [...] of healthy diet and exercise. Sciatic nerve ykgxhy2804/06/2017History of gcjmjllekdco99/14/2016 Resolved Problems ProblemNoted DateDiagnosed DateResolved DatePre-sklsytce13ody mass index (BMI) 37.0-37.9, adult Assessment & [...] patient. Acute exacerbation of chronic obstructive pulmonary vtonvrm64 Assessment & Plan (04/09/2023 9:18 AM EDT): Trelegy samples given Elevated BP without diagnosis of kwzxucmdsnyb00Finding of above normal blood yimhomne89H/O total qsvmwuorpazt41/30/2023 04/28/2024Hot stgerlx81Impaired fasting lyykvjn8012/26/2022 04/14/2024Migraine okrhqxpw92Obesity (BMI 30.0-34.9)12/26/2022 04/28/20241971Xckmvr47/30/202302/ Assessment & Plan (04/09/2023 8:39 AM EDT): Discussed smoking cessation with the patient. Encouraged patient to cut back and soon quit smoking.Health risks of smoking, and benefits of quitting reviewed with the patient. Encounters DateTypeDepartmentCare RebnSgejgvvfdoy01/28/2025bstract [facility] [address] [facility] [address] [place] [phone] Josey Youssef MD 05/18/2025Refill [facility] [address] [facility] [address] [place] [phone] Josey Youssef MD Tremors of nervous system; Anxiety; Migraine without aura and without status migrainosus, not zvdccsaudtf15/25/2025 Clinisync Result Encounter NOMS External Department Unsolicited Provider, Generic External Data 04/23/2025linisync Result Encounter NOMS External Department Unsolicited Provider, Generic External Data 04/21/2025Refill [facility] [address] [facility] [address] [place] [phone] Josey Youssef MD Hrsdqjwvm26/17/2025bstract [facility] [address] [facility] [address] [place] [phone] Josey Youssef MD from Last 3 Months Immunizations ImmunizationAdministration DatesNext DueInfluenza, injectable, MDCK, preservative free, toebbcmxnobh11/13/2021Influenza, injectable, quadrivalent, preservative free06/15/2022Moderna Bivalent Booster Gakbsyynozq54/17/2022 SARS-COV-2 (COVID-19) vaccine, mRNA, spike protein, LNP, bivalent, preservative free, 30 mcg/0.3 mLdose, maria esther-sucrose grjzddpsyar45/17/2022 Family History Medical HistoryRelationNameCommentsColon cancerMaternal GrandfatherDiabetes Maternal GrandmotherCancer, DM HTNMotherPassed away ervical cancerMother DiabetesMotherhtnMotherPsoriasisOtherFamily historyHeart diseasePaternal GrandfatherStrokePaternal GrandfatherDiabetesPaternal GrandmotherRelationName StatusCommentsFatherAliveMaternal GrandfatherMaternal GrandmotherDeceasedMother DeceasedOtherFamily historyPaternal GrandfatherPaternal Grandmother Social History Tobacco UseTypesPacks/DayYears UsedDateSmoking Tobacco: QayyaeUblwgttpns729 Started: okeless Tobacco: Never Tobacco Cessation:Counseling Given: Not Answered Alcohol UseStandard Drinks/WeekCommentsYes0 (1 standard drink = 0.6 oz pure alcohol)1-2 drinks monthly or less, caffeine yes coffee,sodaSocial Connection and Isolation PanelAnswerDate RecordedIn a typical week, how many times do you talk on the phone with family, friends, or neighbors?Patient cxefixxc00/25/2024 How often do you get together with friends or relatives?Patient declined 10/22/2023How often do you attend lutheran or confucianism services?Patient declined 10/22/2023o you belong to any clubs or organizations such as lutheran groups, unions, fraternal or athletic groups, or school groups?Patient declined 10/22/2023How often do you attend meetings of the clubs or organizations you belong to?Patient bmngphyx14/25/2024re you , , , , never , or living with a partner?Xhoklrf1410/22/2023UDIT-C AnswerDate RecordedQ1: How often do you have a drink containing alcohol?Patient /25/2024Q2: How many drinks containing alcohol do you have on a typical day when you are drinking?Patient ueuzoace42/25/2024Q3: How often do you have six or more drinks on one occasion?Patient hnipxzdd24/25/2024Overall Financial Resource Strain (CARDIA)AnswerDate RecordedHow hard is it for you to pay for the very basics like food, housing, medical care, and heating?Patient xzpldops50/25/2024HQ-2AnswerDate RecordedPatient Health Questionnaire-2 Score0 04/07/2025Hunger Vital SignAnswerDate RecordedWithin the past 12 months, you worried that your food would run out before you got the money to buymore.Patient mamsqmql43/25/2024Within the past 12 months, the food you bought just didn't last and you didn't have money to get more.Patient ghfqhqpu74/25/2024RAPARE - TransportationAnswerDate RecordedIn the past 12 months, [...] steady place to sleep or slept in [place] (including now)?No10/22/2023CommentsUnknownSex and Gender InformationValueDate RecordedSex Assigned at BirthNot on fileLegal SexFemale 10/11/2022 7:00 PM EDTGender IdentityNot on fileSexual OrientationNot on file Last Filed Vital Signs Vital SignReadingTime TakenCommentsBlood Galxxrvg618/8809 9:27 AM EDT Zxpyi070304/07/2025 9:27 AM TUQNvrywhavbvm49.3 ??C (99.2 ??F)01/10/2023 9:23 AM EDTRespiratory Dtov463509/11/2024 9:28 AM ESTOxygen Xjufrixutn55%04/07/2025 9:27 AM EDTInhaled Oxygen Concentration--Witnsb10.4 kg (217 lb)04/07/2025 9:27 AM EDT Yxfxlz272.1 cm (5' 5 )04/07/2025 9:27 AM EDTBody Mass Index36.11004/07/2025 9:27 AM EDT Plan of Treatment DateTypeDepartmentCare Team (Latest Contact Info)Frieoohglbv87/15/2025 8:15 AM ESTOffice Visit N[facility]S [facility] [address] [facility] [address] [place] [phone] Josey Youssef MD [address] [facility] [address] [place] [address] Health MaintenanceDue DateLast DoneCommentsCT Yjaotnwtbqho04/01/1970FIT-DNA 1969FIT1969FOBT1969 7826Yfmzgxfmctbgo18/01/1970Diabetes: Retinopathy Sfxzmeqtq59/01/1980Pneumococcal Vaccine: Pediatrics (0 to 5 Years) and At-Risk Patients (6 to 64 Years) (1 of 2 - PCV)1988COVID-19 Vaccine (2024- season)/, 12/23/2021, 07/11/2021, Additional history existsInfluenza Vaccine (#1)/, 07/11/2021Mammogram /, 2Diabetes: Hemoglobin A1C/03/2025, 10/13/2024, 04/14/2024, Additional history existsDiabetes: Urine Protein Nvwhgtzuh22/13/541749/, 04/09/2023, 9029Npvixyccpic37/07/2031 1Colorectal Cancer Hnednkdmg73/07/2031 Goals GoalPatient Goal TypeAssociated ProblemsRecent ProgressPatient-Stated?Author Help patient manage antidepressant medication Care PlanPatient on antidepressant monitoring Josey Caceres MD Baseline PHQ-9 Care PlanBaseline PHQ-9Josey Peterson MD Procedures Procedure NamePriorityDate/TimeAssociated DiagnosisCommentsXR LUMBAR SPINE MIN 4V04/23/2025 9:48 AM EDT XR SACROILIAC JOINT04/23/2025 9:47 AM EDT POCT GLYCATED HEMOGLOBIN, XAQWXXmgcviy80/09/2025 9:37 AM EDT Type 2 diabetes mellitus with diabetic nephropathy, without long-term current use of insulin (HCC) MICROALBUMIN / CREATININE URINE ZVUTWSlhjwfp48/13/2025 2:17 PM EST MM TOMOSYNTHESIS SCREENING BI04/18/2024 12:10 PM EDT SPNJSRSAZJDCvnxymv42/07/2021 12:00 PM EDT from Last 3 Months or Most Recently Relevant to Health Maintenance Results * XR LUMBAR SPINE MIN 4V (04/23/2025 9:48 AM EDT)Anatomical RegionLaterality ModalityOtherSpecimen (Source)Anatomical Location / LateralityCollection Method / VolumeCollection TimeReceived Time04/23/2025 9:48 AM EDT Narrative 04/23/2025 9:50 AM EDT [facility] ?[address] ? [place] [address] ?XRay Report ? Signed ? Patient: SGDHARA ?MR#: [id number] ?? : 1970 ?Acct:[id number] ?? Age/Sex: 54 / F ?ADM Date: 04/23/25 ?? Loc: RAD ? Attending Dr: Tyra Vance MIXOLOGIST ? Ordering Physician: Tyra Vance MIXOLOGIST ?? Date of Service: 04/23/25 ?? Procedure(s): XR lumbar spine min 4V ?? Accession Number(s): [id number] ? cc: JOSEY YOUSSEF ; Tyra Vance NP ? [facility] ? [facility] ? [place] [address] ? Patient Name: ?? DHARA DALLAS ? MRN: [id number] ? date: 1970 ?Sex: F ?? Assigned Patient Location: PM ?? Current Patient Location: PM ?? Accession/Order Number: [id number] ?? Exam Date: 04/23/2025 ??08:55 ?Report Date: 04/23/2025 ??09:48 ? At the request of: ?? TYRA ??RAJIV ??MIXOLOGIST ? Procedure: ??XR lumbar spine min 4V [...] Dictation Location: RADIO-PC-23 ? Electronically authenticated by: [id number] ??Y ?? Date: 04/23/2025 ??09:48 ? Dictated By: ?Rafiq Rai M.D. ? Signed By: ?04/23/25 0950 ? DD/ 0948 ? TD/TT: ? Cut Tobacco Bulker: Procedure Note Radiology, Radiologist, MD - 04/23/2025 [place] [address] XRay Report Signed Patient: DHARA DALLAS AMR#: [id number] : 1970Acct:[id number] Age/Sex: 54 / FADM Date: 04/23/25 Loc: RAD Attending Dr: Tyra Vance NP Ordering Physician: Tyra Vance NP Date of Service: 04/23/25 Procedure(s): XR lumbar spine min 4V Accession Number(s): [id number] cc: JOSEY YOUSSEF ; Tyra Vance NP The [place] [id number] Patient Name: DHARA DALLAS MRN: [id number] date: 1970 Sex: F Assigned Patient Location: Current Patient Location: PM Accession/Order Number: [id number] Exam Date: 04/23/2025 08:55 Report Date: 04/23/2025 [...] Jr., D.O. 04/23/2025 9:48 AM Dictation Location: [place] [address] Electronically authenticated by: [id number] Y Date: :48 Dictated By: Rafiq Rai M.D. Signed By:04/23/25949 DD/ 7 TD/TT: Cut Tobacco Bulker: Authorizing ProviderResult TypeResult StatusGeneric External Data Provider CLINISYNC IMAGINGFinal Result * XR SACROILIAC JOINT (04/23/2025 9:47 AM EDT)Anatomical RegionLaterality ModalityRadiographic ImagingSpecimen (Source)Anatomical Location / Laterality Collection Method / VolumeCollection TimeReceived Time04/23/2025 9:47 AM EDT Narrative 04/23/2025 9:49 AM EDT [facility] ?[address] ? [place] [address] ?XRay Report ? Signed ? Patient: DHARA DALLAS ?MR#: [id number] ?? : 1970 ?Acct:[id number] ?? Age/Sex: 54 / F ?ADM Date: 04/23/25 ?? Loc: RAD ? Attending Dr: Tyra Vance MIXOLOGIST ? Ordering Physician: Tyra Vance NP ?? Date of Service: 04/23/25 ?? Procedure(s): XR sacroiliac joint ELIANE ?? Accession Number(s): [id number] ? cc: JOSEY YOUSSEF ; Tyra Vance NP ? [facility] ? [address] ? [place] [address] ? Patient Name: ?? DHARA DALLAS ? MRN: [id number] ? date: 1970 ?Sex: F ?? Assigned Patient Location: PM ?? Current Patient Location: PM ?? Accession/Order Number: [id number] ?? Exam Date: 04/23/2025 ??08:55 ?Report Date: 04/23/2025 ??09:47 ? At the request of: ?? TYRA ??RAJIV ??MIXOLOGIST ? Procedure: ??XR sacroiliac joint ELIANE ? [...] D.O. ??04/23/2025 9:47 AM ? Dictation Location: [place] [address] ? Electronically authenticated by: [id number] ??Y ?? Date: 04/23/2025 ??09:47 ? Dictated By: ?Rafiq Rai M.D. ? Signed By: ?04/23/25 09 ? DD/ 0947 ? TD/TT: ? Cut Tobacco Bulker: Procedure Note Radiology, Radiologist, MD - 04/23/2025 [place] [address] XRay Report Signed Patient: DHARA DALLAS AMR#: [id number] : 1970Acct:[id number] Age/Sex: 54 / FADM Date: 04/23/25 Loc: RAD Attending Dr: Tyra Vance NP Ordering Physician: Tyra Vance NP Date of Service: 04/23/25 Procedure(s): XR sacroiliac joint ELIANE Accession Number(s): [id number] cc: JOSEY YOUSSEF ; Tyar Vance NP The [address] [address] Patient Name: DHARA DALLAS MRN: [id number] date: 1970 Sex: F Assigned Patient Location: PM Current Patient Location: PM Accession/Order Number: [id number] Exam Date: 04/23/2025 08:55 Report Date: 04/23/2025 [...] Jr., D.O. 04/23/2025 9:47 AM Dictation Location: [place] [address] Electronically authenticated by: [id number] Y Date: 9:47 Dictated By: Rafiq Rai M.D. Signed By:04/23/2549 DD/ 6 TD/TT: Cut Tobacco Bulker: Authorizing ProviderResult TypeResult StatusGeneric External Data ProviderIMG XR PROCEDURESFinal Result * POCT Glycated hemoglobin, total (04/07/2025 9:37 AM EDT)ComponentValueRef RangeTest MethodAnalysis TimePerformed AtPathologist SignatureHemoglobin A1C 5.5Specimen (Source)Anatomical Location / LateralityCollection Method / Volume Collection TimeReceived LmmvLjshf63/09/2025 9:37 AM EDT Narrative Authorizing ProviderResult TypeResult StatusJosey Youssef MDPOINT OF CARE TEST ENTER/EDIT ORDERABLESFinal Result * Microalbumin / creatinine urine ratio (09/11/2024 2:17 PM EST)ComponentValue Ref RangeTest MethodAnalysis TimePerformed AtPathologist SignatureCREATININE, RANDOM BZBRN7259 - 275 mg/dLQUESTALBUMIN, URINE0.4See Note: mg/dLQUESTComment: Reference [...] Performing Organization Information ?Site ID: QPT ?Name: [facility] ?Address: [address] [place] [address], [address] [place] [address] ?Director: Christiano Escobar MD Authorizing ProviderResult TypeResult StatusJanel Field PALAB URINE ORDERABLESFinal ResultPerforming OrganizationAddressCity/State/ZIP CodePhone Number QUEST * MM TOMOSYNTHESIS SCREENING BI (04/18/2024 12:10 PM EDT)Anatomical Region LateralityModalityOtherSpecimen (Source)Anatomical Location / Laterality Collection Method / VolumeCollection TimeReceived Time04/18/2024 12:10 PM EDT [facility] 04/18/2024 12:11 PM EDT [facility] ?[address] ? [place] [address] ? Mammography Report ? Signed ? Patient: DHARA DALLAS ?MR#: [id number] ?? : 1970 ?Acct:[id number] ?? Age/Sex: 53 / F ?ADM Date: 04/18/24 ?? Loc: MAMMO ? Attending Dr: JOSEY YOUSSEF ? Ordering Physician: JOSEY YOUSSEF ? Results: ? Date of Service: 04/18/24 ?Follow Up: ? Procedure(s): MM tomosynthesis screening BI ?? Accession Number(s): [id number] ? cc: JOSEY YOUSSEF ? Patient Name: ? DHARA DALLAS ? MR#: [id number] ? : 1970 ? Exam Date: 04/18/2024 [...] age 78. ? LOCATION: ? [facility] ? BREAST COMPOSITION: ? There are scattered [...] 04/18/2024 at 12:09 ? Approved by: Silver Stelring MD on 04/18/2024 at 12:10 ? Dictated By: ?Silver Sterling M.D. ? Signed By: ?04/18/241210 ? DD/ 09 ? TD/TT: ? Cut Tobacco Bulker: Procedure Note Radiology, Radiologist, - 04/18/[address] [address] Mammography Report Signed Patient: DHARA DALLAS AMR#: [id number] : 1970Acct:[id number] Age/Sex: 53 / FADM Date: 04/18/24 Loc: MAMMO Attending Dr: JOSEY YOUSSEF Ordering Physician: JOSEY YOUSSEFResults: Date of Service: 04/18/24Follow Up: Procedure(s): MM tomosynthesis screening BI Accession Number(s): [id number] cc: MIKAELYONGCHRIS Patient Name: DHARA DALLAS MR#: [id number] : 1970 Exam Date: 04/18/2024 Ordering Doctor: [...] lung cancer at age78. LOCATION: [facility] BREAST COMPOSITION: There are scattered areas of [...] M.D. Signed By:04/18/24 1211 DD/ 1210 TD/TT: Cut Tobacco Bulker: Authorizing ProviderResult TypeResult StatusJosey Youssef MDCLINISYNC IMAGING Final Result * Colonoscopy (12/03/2020 12:00 PM EDT)Anatomical RegionLateralityModality EndoscopySpecimen (Source)Anatomical Location / LateralityCollection Method / VolumeCollection TimeReceived Time12/03/2020 12:00 PM EDT Narrative 12/03/2020 12:00 PM EDT PERFORMED AT [facility] LOCATION:[id number] colonic polyp Procedure Note CONVERSION, GENERIC - 12/13/2022 PERFORMED AT [facility] LOCATION:[id number] colonic polyp Authorizing ProviderResult TypeResult StatusJosey Youssef MDENDOSCOPY PROCEDURE ORDERABLESFinal Result from Last 3 Months or Most Recently Relevant to Health Maintenance Additional Health Concerns Active ProblemsNoted DateDiagnosed DatePatient on antidepressant monitoring plan 04/07/2025aseline PHQ-9004/07/2025 Insurance Care Teams Team MemberRelationshipSpecialtyStart DateEnd Date Josey Youssef MD [address] [facility] [address] [place] [address] PCP - GeneralFamily Medicine12/21/22
== END 2025-07-09 07:37 | disposition home or self-care (01) ==
LOC: PM 07:36
PROVIDERS: PCP Family Medicine; Visit Provider Nurse Practitioner
DX: M47.816 Spondylosis without myelopathy or radiculopathy, lumbar region (principal); M46.1 Sacroiliitis, not elsewhere classified
CPT/HCPCS: G0463